=== PATIENT | female | born 1940 | race Caucasian/White ===

== ENCOUNTER 2016-06-17 13:44 | Outpatient (RCR) | payer MEDICARE, MEDICAID ==
[~2016-06-17 13:44] MED LIST: ACTOS15 MG PO; ASP81TEC PO; ATOR40TA PO; ATOR40TA70 PO; CANA100T PO; CEPH500C PO; CHOL500019 PO; CLOP75TA PO; CLOP75TA28 PO; CYAN100053 IJ; D50KC PO; DONE5TAB30 PO; ESOM20CA PO; FLUC100T6 PO; HYDR-1231 PO; HYDR-3454 PO; HYDR-3714 PO; INSU100C SQ; INSU100V SC; INSU100V6; INSU100V6 SC; INSU100V6 SQ; Insulin Human Lispro SC; LORA10TA7 PO; LOSA25TA15 PO; MESA1.2T2 PO; METO-352 PO; METR500T PO; MIRA50TA PO; MTR500T PO; NF-ESOM40C PO; PAMI30VI8 SQ; PIOG15TA22 PO; SSD50T TP; SULF-222 PO; SULF1TAB38 PO; SULFAMETHOXAZOLE; TBR.3OO OP; TOLT4CAP13 PO; TOLTA4 PO; TRIMETHOPRIM; TRM50T PO; VENL150C PO; VENL150C53 PO; VENL225T3 PO
--- OUTSIDE RECORDS SUMMARY | 2016-06-17 13:48 | XMS REPORT | Continuity of Care Document ---
Author Author [facility] Organization [facility] Address Unknown Phone Unavailable Care Team Providers Care Food Equipment Service Technician Name Role Phone JOSEY RIDER DO PCP Insurance Providers Payer Name Policy Number Subscriber Name Relationship [employer] [id number] Edel Herrera 18 Self / Same As Patient [facility] [id number] Edel Herrera 18 Self / Same As Patient Advance Directives Directive Response Recorded Date/Time Advance Directives No 09/06/14 9:22am Health Care Power of Motor Coach Supervisor No 09/06/14 9:22am Organ Donor No 09/06/14 9:22am Resuscitation Status Full Code 09/06/14 9:22am Problems Medical Problems Problem Onset Date Status Abscess Unknown Active Incision and drainage of abscess Unknown Active Hypoglycemia associated with diabetes Unknown Active Hypoglycemia associated with diabetes Unknown Active Hypertension Unknown Active Medications Medication Dose Route Sig Days/Qty Instructions Order Date Discontinued Date Status Insulin Glargine,Hum.rec.anlog 50 Units SQ BEDTIME 11/16/11 Discontinued Insulin Lispro 10 Units SQ WITH MEALS 11/16/11 08/01/14 Discontinued Atorvastatin Calcium 40 Mg PO DAILY 11/16/11 Active Clopidogrel Bisulfate 75 Mg PO DAILY 11/16/11 11/24/11 Discontinued Venlafaxine Hcl 150 Mg PO DAILY 11/16/11 08/01/14 Discontinued Losartan Potassium 50 Mg PO DAILY 11/16/11 05/29/13 Discontinued Tolterodine Tartrate 4 Mg PO DAILY 11/16/11 Active Tramadol HCl 50 Mg PO Q 4 HR PRN 40 Qty 11/23/05/29/13 Discontinued Esomeprazole Magnesium 40 Mg PO DAILY 30 Qty 05/29/13 08/01/14 Discontinued Pioglitazone HCl 15 Mg PO DAILY 05/29/13 Active Clopidogrel Bisulfate 75 Mg PO DAILY 05/29/13 Active Cholecalciferol (Vitamin D3) 50,000 Unit PO WEEKLY 05/29/13 Active Aspirin 81 Mg PO DAILY 05/29/13 Active Loratadine 10 Mg PO DAILY 05/29/13 08/01/14 Discontinued Trimethoprim/Sulfamethoxazole 1 Ea PO TWICE A DAY 20 Qty FOR INFECTION 08/01/14 Discontinued Metronidazole 1 Each PO TWICE A DAY 20 Qty 05/29/13 08/01/14 Discontinued Hydrocodone Bit/Acetaminophen 1 Tab PO EVERY 6 HOURS PRN PAIN 20 Qty 08/01/14 Discontinued Acetaminophen/Hydrocodone Bitart 1 Tab PO EVERY 6 HOURS PRN PAIN Active Cyanocobalamin (Vitamin B 12 Injecting) 1,000 Mcg IJ MONTHLY Active Esomeprazole Magnesium 20 Mg PO DAILY 08/01/14 Active [Insulin Human Lispro] 20 Unit SC WITH MEALS 90 Days 08/03/14 Active Insulin Glargine,Hum.rec.anlog 35 Unit SQ BEDTIME 90 Qty 08/03/14 Active Venlafaxine HCl (Effexor XR) 150 Mg PO 09/06/14 Active Ergocalciferol 50,000 Units PO 09/06/14 Active Loratadine 10 Mg PO 09/06/14 Active [Smz/Tmp 800/160MG] 09/06/14 Active Metronidazole 500 Mg PO TWICE A DAY 09/06/14 Active Tobramycin Sulfate 3.5 Gm OP 09/06/14 Active Trimethoprim/Sulfamethoxazole 1 Tab PO TWICE A DAY 09/06/14 Active Fluconazole 100 Mg PO DAILY 09/06/14 Active Silver Sulfadiazine 0 TP DIRECTED 50 Qty 09/06/14 Active Social History Social History Problem Response Recorded Date/Time Alcohol Use Denies Use 09/06/2014 9:22am Recreational Drug Use No 09/06/2014 9:22am Recent Foreign Travel No 09/06/2014 9:13am Recent Infectious Disease Exposure No 09/06/2014 9:13am Sexually Transmitted Disease No 09/06/2014 9:22am Smoking Status Current Everyday Smoker 09/06/2014 9:22am Do you dip or chew tobacco? No 09/06/2014 9:22am Query Response Start Date Stop Date Smoking Status Current Everyday Smoker Hospital Discharge Instructions No hospital discharge instructions. Plan of Care No plan of care. Functional Status No functional status results. Allergies, Adverse Reactions, Alerts Allergen Type Severity Reaction Status Last Updated No Known Drug Allergies Active 01/26/08 Immunizations Name Given Type Date of Pneumonia Vaccine 01/08/14 Historical Date of Influenza Vaccine 01/08/14 Historical Hepatitis A No Historical Hepatitis B No Historical Tetanus Booster (TDap) Unknown Historical Vital Signs Acute Vital Signs Vital Response Date/Time Temperature (Fahrenheit) 96.5 degrees F (97.6 - 99.5) Temperature (Calculated Celsius) 35.22344 degrees C (36.4 - 37.5) Temperature Source Temporal Pulse Rate (adult) 86 bpm (60 - 90) Respiratory Rate 20 bpm (12 - 24) O2 Sat by Pulse Oximetry 98 % (88 - 100) Blood Pressure 182/88 mm Hg Pain Pain Intensity 0 Height (Feet) 5 feet Height (Inches) 6.00 inches Height (Calculated Centimeters) 167.051494 cm Weight (Pounds) 142 pounds Weight (Ounces) 0.0 oz Weight (Calculated Grams) 92487.117 gm Weight (Calculated Kilograms) 64.614585 kilograms Calculated BMI 21.09 Results Laboratory Results Test Name Result Units Flags Reference Collection Date/Time Result Date/ Time Comments Glucometer 178 MG/DL H 70-110 09/06/2014 10:26am 09/06/2014 10:34am Procedures No known history of procedures. Encounters Encounter Location Date/Time Departed Emergency Room [facility] 09/06/14 9:10am Recent Diagnosis
== END 2016-09-15 | disposition home or self-care (01) ==
LOC: LAB 13:44
PROVIDERS: ATTEND Internal Medicine
DX: R19.7 Diarrhea, unspecified (principal)

== ENCOUNTER → 2016-07-20 | Outpatient (CLI) | payer MEDICARE, MEDICAID ==
--- OUTSIDE RECORDS SUMMARY | 2016-07-20 08:38 | XMS REPORT | Continuity of Care Document ---
Author Author [facility] Organization [facility] Address Unknown Phone Unavailable Care Team Providers Care Voucher Clerk Name Role Phone JOSEY RIDER DO PCP Insurance Providers Payer Name Policy Number Subscriber Name Relationship [employer] [id number] Edel Herrera 18 Self / Same As Patient [facility] [id number] Edel Herrera 17 Self / Same As Patient Advance Directives Directive Response Recorded Date/Time Advance Directives No 09/06/14 9:22am Health Care Power of Credit Reference Clerk No 09/06/14 9:22am Organ Donor No 09/06/14 [...] F (97.6 - 99.5) Temperature (Calculated Celsius) 35.80459 degrees C (36.4 - 37.5) Temperature Source Temporal Pulse Rate (adult) 86 bpm (60 - 90) Respiratory Rate 20 bpm (12 - 24) O2 Sat by Pulse Oximetry 98 % (88 - 100) Blood Pressure 182/88 mm Hg Pain Pain Intensity 0 Height (Feet) 5 feet Height (Inches) 6.00 inches Height (Calculated Centimeters) 167.175272 cm Weight (Pounds) 142 pounds Weight (Ounces) 0.0 oz Weight (Calculated Grams) 98701.117 gm Weight (Calculated Kilograms) 64.064935 kilograms Calculated BMI 21.09 Results Laboratory Results Test Name Result Units Flags Reference Collection Date/Time Result Date/ Time Comments Glucometer 178 MG/DL H 70-110 09/06/2014 10:26am 09/06/2014 10:34am Procedures No known history of procedures. Encounters Encounter Location Date/Time Departed Emergency Room [facility] 09/06/14 9:10am Recent Diagnosis
--- NOTE | 2016-07-20 18:22 | Diagnostic Imaging Report ---
Bilateral diagnostic mammogram. INDICATION: Follow-up asymmetry along the outer aspect of the right breast. The current study was also evaluated with a Computer Aided Detection (CAD) system. COMPARISON: 06/26/2015. FINDINGS: Asymmetry along the outer aspect of the right breast is again noted with no significant change from prior exams. A repeat CC projection demonstrates less prominent asymmetry. The background dense parenchyma could decrease mammographic sensitivity of detection; however, the lack of significant change from prior exams is in favor of summation artifact of parenchyma. Prominent vascular and other benign-appearing calcifications are seen bilaterally. IMPRESSION: Dense breasts with no adverse development. The asymmetry along the outer aspect of the right breast is without significant change and is likely related to summation effect of parenchyma. 12-month follow-up is recommended to ensure long-term stability. ACR BI-RADS Category 3: Probably benign findings. Result letter will be mailed to the patient. Note: At least 10% of breast cancer is not imaged by mammography. Dictated by: Dictated on workstation # [id number]
== END ==
LOC: RAD 08:33
PROVIDERS: ATTEND Internal Medicine
DX: R92.8 Other abnormal and inconclusive findings on diagnostic imaging of breast (principal)
CPT/HCPCS: 77066

== ENCOUNTER 2016-08-03 12:51 | Emergency (ER) | payer MEDICARE, MEDICAID ==
[~2016-08-03] VITALS: Ht 167.6 cm; Wt 74.8 kg
[2016-08-03] MEDS ORDERED: morphine INJ 10 MG/ML 1ML (SYR OR VIAL) IM STA (14:02)
[2016-08-03] MEDS ORDERED: TETANUS,DIPTH,PERTUSS P/F (BOOSTRIX) 0.5 ML VIAL IM STA (14:02)
--- NOTE | 2016-08-03 14:12 | ED Fall/Injury ---
General Chief Complaint: Trauma-Non Activation Stated Complaint: FALL/LEFT HAND INJURY Nursing Triage Note: SEE TRAUMA NOTE. Source: patient, family (daughter) Exam Limitations: no limitations History of Present Illness Time seen by provider: 14:59 Initial Comments 75-year-old female patient presents to the emergency Department with reports of losing her balance and falling. Complains of left hand pain and skin tear. States she thinks she may have hit her head, but not sure. Did break her dentures. Denies loss of consciousness, headache, neck pain, back pain, confusion. Location Injury Occurred: PT HOME Occurred: just prior to arrival Injuries/Pain Location: head (possibly hit her head), face, upper extremity ( left hand) Context: lost balance Loss of Consciousness: no loss of consciousness Modifying Factors: Improves With Immobilization, Worse With Movement Allergies and Home Medications Allergies Coded Allergies: No Known Drug Allergies (Verified , 01/26/08) Home Medications Aspirin 81 Mg Tabec, 81 MG PO DAILY, (Reported) Atorvastatin Calcium 40 Mg Tablet, 40 MG PO DAILY, (Reported) Canagliflozin 100 Mg Tablet, 100 MG PO DAILY, (Reported) Clopidogrel Bisulfate 75 Mg Tablet, 75 MG PO DAILY, (Reported) Cyanocobalamin 1,000 Mcg/Ml Vial, 1,000 MCG IJ MONTHLY, (Reported) AROUND THE OF EACH MONTH Donepezil HCl 5 Mg Tablet, 5 MG PO HS, (Reported) Ergocalciferol 50,000 Units Cap, 50,000 UNITS PO WEEKLY ON MONDAYS, (Reported) Esomeprazole Mag Trihydrate 40 Mg Capsule.dr, 40 MG PO DAILY, (Reported) Insulin Glargine,Hum.rec.anlog 100 Unit/1 Ml Vial, 23 UNIT SQ HS, (Reported) Insulin Lispro 100 Unit/1 Ml Cartridge, 0 SQ PC, (Reported) Mesalamine 1.2 Gm Tablet.dr, 1.2 GM PO, (Reported) Metoprolol Succinate 50 Mg Tab.er.24h, 50 MG PO DAILY, #30 Prescribed by: RD REYNOLDS on 12/03/15 [id number] Mirabegron 50 Mg Tab.er.24h, 50 MG PO, (Reported) Pioglitazone Hcl 15 Mg Tablet, 15 MG PO DAILY, (Reported) Venlafaxine Hcl 150 Mg Cap.sr.24h, 150 MG PO DAILY, (Reported) Constitutional: no symptoms reported Eyes: No Symptoms Reported Ears, Nose, Mouth, Throat: see HPI Respiratory: No cough, No short of breath Cardiovascular: No chest pain, No palpitations, No syncope Gastrointestinal: No abdominal pain, No nausea, No vomiting Genitourinary: no symptoms reported Musculoskeletal: see HPI, No back pain, joint pain, joint swelling (left hand) , No neck pain Skin: change in color (ecchymosis left hand) Psychiatric/Neurological: Denies Headache, Denies Numbness, Denies Paresthesia , Denies Seizure, Denies Tingling, Denies Weakness All Other Systems Reviewed Negative Unless Noted: Yes (Negative excepted noted.) Past Yzrwxzw-Svpbbn-Kubyap Hx Patient Social History Alcohol Use: Denies Use Recreational Drug Use: No Smoking Status: Current Everyday Smoker Type Used: Cigarettes Former Smoker/When Quit: Jan 17, 2015 2nd Hand Smoke Exposure: No Recent Foreign Travel: No Contact w/Someone Who Travel: No Recent Infectious Disease Expo: No Recent Hopitalizations: No Immunizations Up To Date Tetanus Booster (TDap): Unknown PED Vaccines UTD: No Date of Pneumonia Vaccine: Jan 08, 2014 Date of Influenza Vaccine: Feb 08, 2016 Surgeries HX Surgeries: Yes (STENTS X3, L ANKLE SURGERY, CAROTID ENDARTERECTOMY, RIGHT HIP REPLACEMENT) Surgeries: Appendectomy, Coronary Stent, Eye Surgery, 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, Joint Replacement, Orthopedic Respiratory Hx Respiratory Disorders: No Cardiovascular Hx Cardiac Disorders: Yes (STENTS 2002, ) Cardiac Disorders: Coronary Artery Disease, Heart Attack, High Cholesterol Neurological Hx Neurological Disorders: Yes (ONSET OF DEMENTIA) Neurological Disorders: TIA 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 System Hx 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 Disorders: No Sexually Transmitted Disease: No HIV/AIDS: No Female 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 Disorders: Denies Genitourinary Hx Genitourinary Disorders: Yes (INCONTINENCE) Gastrointestinal Hx Gastrointestinal Disorders: Yes Gastrointestinal Disorders: Colitis, Gastroesophageal Reflux, Chronic Diarrhea Musculoskeletal Hx Musculoskeletal Disorders: Yes Musculoskeletal Disorders: Osteoporosis, Arthritis Endocrine Hx Endocrine Disorders: Yes Endocrine Disorders: Diabetes, Insulin dep HEENT HX ENT Disorders: Yes (WEARS GLASSES, DENTURES (FULL)) Loss of Vision: Bilateral Hearing Impairment: Denies Cancer Hx Cancer: No Psychosocial Hx Psychiatric Problems: Yes Behavioral Health Disorders: Anxiety Integumentary HX Skin/Integumentary Disorder: No Skin/Integumentary Disorders: Recent Skin Changes Blood Transfusions Hx Blood Disorders: No Adverse Reaction to a Blood Tr: No Reviewed Nursing Assessment Reviewed/Agree w Nursing PMH: Yes Family Medical History Significant Family History: No Pertinent Family Hx Family Medial History: Alzheimer's disease (dad) Arthritis (mom) Asthma (sister) Completed stroke (mom) Diabetes mellitus (mom) Fibrocystic disease of breast (sister) Hypercholesterolemia (mom) Hypertension (mom) Myocardial infarction (mom) Neoplasm Parkinson's disease Severe allergy (sister) No Family History of: AIDS Abdominal aortic aneurysm Delbert's disease Alcoholism Aphasia Cancer of mouth Cardiovascular disease Cataracts Colon cancer Congenital disease Congenital heart disease Coronary thrombosis Cystic fibrosis Deafness or hearing loss Dementia Drug abuse Dysphasia Gastroenteritis Glaucoma Headache disorder Infertility Kidney disease Not obtainable due to adoption Osteoporosis (breast cancer) Prostate cancer Psychosocial problem Respiratory disorder Seizure disorder Thyroid disease Visual disorder Physical Exam Vital Signs Vital Sign - Last 12Hours 08/03/16 12:55 Temp 98.6 Pulse 89 Resp 16 B/P (MAP) 157/61 Pulse Ox 96 O2 Delivery Room Air Capillary Refill : Less Than 3 Seconds General Appearance: WD/WN, no apparent distress HEENT: PERRL/EOMI, normal ENT inspection, TMs normal, pharynx normal, other ( superficial laceration of the right lower internal lip. Abrasion right lower external lip.) Neck: non-tender, full range of motion, supple, normal inspection Cardiovascular: normal peripheral pulses, regular rate, rhythm, no edema, no murmur Respiratory: lungs clear, normal breath sounds, no respiratory distress Peripheral Pulses: 2+ Dorsalis Pedis (R), 2+ Left Dors-Pedis (L), 2+ Radial Pulses (R), 2+ Radial Pulses (L) Gastrointestinal: non tender, soft, No distended Back: normal inspection, no vertebral tenderness Extremities: no pedal edema, normal capillary refill, pelvis stable, other ( skin tear left volar hand overlying the second, third, and fourth MCP joints. 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 Swelling, ecchymosis, and tenderness left second, third, and fourth volar MCP joints.) Progress/Results/Core Measures Results/Orders My Orders Orders - KAYLIN PALMA Hand, Left, 3 Views (08/03/16 14:02) Dipht,Pertuss(Acell),Tet Adult (Boostrix (08/03/16 14:02) Ct Head/Maxillofacial Wo (08/03/16 14:02) Morphine Injection (Morphine Injection (08/03/16 14:02) Cockup Splint (08/03/16 15:43) Vital Signs/I&O Vital Sign - Last 12Hours 08/03/16 08/03/16 12:55 15:49 Temp 98.6 98.6 Pulse 89 85 Resp 16 16 B/P (MAP) 157/61 Pulse Ox 96 96 O2 Delivery Room Air Blood Pressure Mean: 93 Diagnostic Imaging Diagonstic Imaging: CT Plain Films/CT/US/NM/MRI: facial bones, head Comments FINDINGS: CT head: No intracranial hemorrhage. 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 There is a periventricular and deep white matter hypodensities compatible with chronic microvascular ischemic changes. No hydrocephalus. No extra-axial fluid collection is seen. The calvarium, the paranasal sinuses and orbits appear grossly unremarkable. CT maxillofacial: The zygomatic arches are intact. The orbital aldrich are intact. The paranasal sinuses and the mastoid air cells appear clear. There is nasoseptal deviation to the right side. The mandible is intact. 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 IMPRESSION: CT head: No acute process. CT maxillofacial: No fracture seen. Dictated on workstation # [id number] Reviewed: Reviewed by Me (radiology report reviewed by me. ) Diagonstic Imaging: Xray Plain Films/CT/US/NM/MRI: hand Comments FINDINGS: No acute fracture or malalignment is identified. There is dorsal hand swelling. No abnormal lytic or sclerotic focus is seen. There is no evidence of radiopaque foreign body within the hand. IMPRESSION: Dorsal hand swelling without acute osseous abnormality detected. Dictated on workstation # [id number] Reviewed: Reviewed by Me (radiology report reviewed by me) Departure Communication Progress Notes Diagnostic findings discussed with the patient and family. All wounds cleansed with chlorhexidine and sterile saline. Steri-Strips and Mastisol used to reapproximate skin tears. Wounds dressed with gauze and Kerlix. Left-handed placed in a Colles' splint to prevent patient hearing the Steri-Strips off. Patient instructed to follow-up with Dr. Lan in the next 1-2 days for recheck and to call for appointment time today. Return precautions were discussed with the patient as described in the discharge instructions of this report. Patient voices understanding and agrees with the treatment plan. Impression Impression: Primary Impression: Minor head injury without loss of consciousness Qualified Codes: S09.90XA - Unspecified injury of head, initial encounter Additional Impressions: Contusion of hand, left Abrasion hand Abrasion of lip, initial encounter Disposition: HOME, SELF-CARE Condition: Improved Departure-Patient Inst. Decision time for Depature: 15:16 Referrals: JOSEY LAN DO (PCP/Family) Primary Care Physician Patient Instructions: Contusion (DC), Minor Head Injury (DC), Skin Abrasions ( DC) Add. Discharge Instructions: All discharge instructions reviewed with patient and/or family. Voiced understanding. Continue usual home medications. Tylenol Extra Strength acek-bry-pyueiby as directed for pain if needed. Tomorrow morning remove the bandage, shower with antibacterial soap, pat dry, and cover with bandage. hand brace as instructed. Ice pack for 20 minute intervals as needed for pain. Follow-up with your family practitioner in the next 1-2 days for recheck, call today for appointment time. Return to the emergency department for worsened pain, redness, drainage, fever, vomiting, seizure, shortness of breath, neck pain, back pain, numbness, weakness , or any other concerns. KAYLIN PALMA Aug 03, 2016 14:12
--- NOTE | 2016-08-03 14:37 | Diagnostic Imaging Report ---
PROCEDURE: CT head and maxillofacial without contrast. TECHNIQUE: Multiple contiguous axial images were obtained through the head and facial bones without the use of intravenous contrast. INDICATION: Fall. FINDINGS: CT head: No intracranial hemorrhage. 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 There is a periventricular and deep white matter hypodensities compatible with chronic microvascular ischemic changes. No hydrocephalus. No extra-axial fluid collection is seen. The calvarium, the paranasal sinuses and orbits appear grossly unremarkable. CT maxillofacial: The zygomatic arches are intact. The orbital aldrich are intact. The paranasal sinuses and the mastoid air cells appear clear. There is nasoseptal deviation to the right side. The mandible is intact. 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 IMPRESSION: CT head: No acute process. CT maxillofacial: No fracture seen. Dictated by: Dictated on workstation # [id number]
--- NOTE | 2016-08-03 15:05 | Diagnostic Imaging Report ---
INDICATION: Fall with left hand injury. TECHNIQUE: AP, oblique, and lateral views of the left hand were obtained. FINDINGS: No acute fracture or malalignment is identified. There is dorsal hand swelling. No abnormal lytic or sclerotic focus is seen. There is no evidence of radiopaque foreign body within the hand. IMPRESSION: Dorsal hand swelling without acute osseous abnormality detected. Dictated by: Dictated on workstation # [id number]
[2016-08-03 15:49] VITALS: BP 155/64
--- OUTSIDE RECORDS SUMMARY | 2016-08-18 18:14 | XMS REPORT | Continuity of Care Document ---
Author Author [facility] Organization [facility] Address Unknown Phone Unavailable Allergies Active Description Code Type Severity Reaction Onset Reported/Identified Relationship to Patient Clinical Status Yes No Known Drug Allergies [id number] Drug Allergy Unknown N/ A 01/26/2008 Medications Problems Date Dx Coded Attending Type Code Diagnosis Diagnosed By 11/18/2011 Ot 250.00 DIAB JEFFY WO COMPL, TYPE II OR UNSPEC TY 11/18/2011 Ot 272.4 HYPERLIPIDEMIA NEC/NOS 11/18/2011 Ot 401.9 HYPERTENSION NOS 11/18/2011 Ot 412 OLD MYOCARDIAL INFARCT 11/18/2011 Ot 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 [place] CORON 11/18/2011 Ot 433.10 CAROTID ARTERY OCCLUSION W O CEREBRAL IN 11/18/2011 Ot 530.81 ESOPHAGEAL REFLUX 11/18/2011 Ot 781.3 LACK OF COORDINATION 11/18/2011 Ot 793.11 SOLITARY PULMONARY NODULE 11/18/2011 Ot 799.02 HYPOXEMIA 11/18/2011 Ot V58.67 LONG-TERM (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 11/24/2011 Ot 250.00 DIAB JEFFY WO COMPL, TYPE II OR UNSPEC TY 11/24/2011 Ot 305.1 TOBACCO USE DISORDER 11/24/2011 Ot 401.9 HYPERTENSION NOS 11/24/2011 Ot 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 [place] CORON 11/24/2011 Ot 433.10 CAROTID ARTERY OCCLUSION W O CEREBRAL IN 11/24/2011 Ot V45.82 PERCUTANEOUS TRANSLUM CORON ANGIOPLASTY 05/29/2013 LAURIE MARCUM, RD Newman Ot 682.9 CELLULITIS NOS 08/03/2014 JOSEY RIDER DO Ot 250.02 DIAB JEFFY WO COMPL, TYPE II OR UNSPEC TY 08/03/2014 JOSEY RIDER DO Ot 263.9 PROTEIN-ANITA MALNUTR NOS 08/03/2014 JOSEY RIDER DO Ot 266.2 B-COMPLEX DEFIC NEC 08/03/2014 JOSEY RIDER DO Ot 268.9 VITAMIN D DEFICIENCY NOS 08/03/2014 JOSEY RIDER DO Ot 276.1 HYPOSMOLALITY 08/03/2014 JOSEY RIDER DO Ot 300.00 ANXIETY STATE NOS 08/03/2014 JOSEY RIDER DO Ot 305.1 TOBACCO USE DISORDER 08/03/2014 JOSEY RIDER DO Ot 401.9 HYPERTENSION NOS 08/03/2014 JOSEY RIDER DO Ot 412 OLD MYOCARDIAL INFARCT 08/03/2014 JOSEY RIDER DO Ot 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 [place] CORON 08/03/2014 JOSEY RIDER DO Ot 443.9 PERIPH VASCULAR DIS NOS 08/03/2014 JOSEY RIDER DO Ot 530.81 ESOPHAGEAL REFLUX 08/03/2014 JOSEY RIDER DO Ot 596.51 HYPERTONICITY OF BLADDER 08/03/2014 JOSEY RIDER DO Ot V15.81 HX OF PAST NONCOMPLIANCE 08/06/2014 Ot V76.12 08/06/2014 Ot V76.12 08/06/2014 Ot 305.1 08/06/2014 Ot 492.8 08/06/2014 Ot 783.21 08/06/2014 Ot 786.7 08/06/2014 Ot 414.00 08/06/2014 Ot 496 08/06/2014 Ot 793.19 08/06/2014 Ot 250.00 08/06/2014 Ot 272.4 08/06/2014 Ot 305.1 08/06/2014 Ot 401.9 08/06/2014 Ot 414.01 08/06/2014 Ot 433.10 08/06/2014 Ot V13.02 08/06/2014 Ot V45.82 08/06/2014 Ot V58.63 08/06/2014 Ot V58.67 08/06/2014 Ot V58.69 08/06/2014 Ot 433.10 08/06/2014 Ot V72.63 08/06/2014 Ot V74.8 08/06/2014 Ot V67.09 08/06/2014 Ot 793.82 08/06/2014 Ot V76.12 08/06/2014 NEY ASTUDILLO FARM MACHINE OPERATOR Ot 719.07 08/06/2014 NEY ASTUDILLO FARM MACHINE OPERATOR Ot 719.47 08/06/2014 JOSEY RIDER DO Ot V76.12 08/06/2014 Ot V76.12 08/09/2014 Ot V76.12 08/24/2014 Ot V76.12 09/06/2014 RD SULLIVAN MD Ot 250.80 DIAB W OTH SPEC MANIFEST, TYPE II OR UNS 09/06/2014 RD SULLIVAN MD Ot 401.9 HYPERTENSION NOS 09/06/2014 RD SULLIVAN MD Ot V58.67 LONG-TERM (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 09/06/2014 RD SULLIVAN MD Ot V58.69 OTH MED,LT,CURRENT USE 09/23/2014 ROBERT JAMISON APRN Ot 250.80 DIAB W OTH SPEC MANIFEST, TYPE II OR UNS 09/23/2014 ROBERT JAMISON APRN Ot 251.2 HYPOGLYCEMIA NOS 09/25/2014 JOSEY RIDER DO Ot 250.80 DIAB W OTH SPEC MANIFEST, TYPE II OR UNS 09/25/2014 JOSEY RIDER DO Ot 305.1 TOBACCO USE DISORDER 09/25/2014 JOSEY RIDER DO Ot 311 DEPRESSIVE DISORDER NEC 09/25/2014 JOSEY RIDER DO Ot 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 [place] CORON 09/25/2014 JOSEY RIDER DO Ot 530.81 ESOPHAGEAL REFLUX 09/25/2014 JOSEY RIDER DO Ot V45.82 PERCUTANEOUS TRANSLUM CORON ANGIOPLASTY 09/25/2014 JOSEY RIDER DO Ot V58.67 LONG-TERM (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 01/31/2015 KYMBERLY DPM, DAVID Q Ot 250.00 DIAB JEFFY WO COMPL, TYPE II OR UNSPEC TY 01/31/2015 KYMBERLY DPM, DAVID Q Ot 414.00 CORON ATHEROSCLER NOS TYPE VESSEL, NATIV 01/31/2015 KYMBERLY DPM, DAVID Q Ot 727.1 BUNION 01/31/2015 KYMBERLY DPM, DAVID Q Ot V58.63 LONG-TERM(CURRENT)USE OF ANTIPLATELET/AN 01/31/2015 KYMBERLY DPM, DAVID Q Ot V58.67 LONG-TERM (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 01/31/2015 KYMBERLY DPM, DAVID Q Ot V58.69 OTH MED,LT,CURRENT USE 01/31/2015 KYMBERLY DPM, DAVID Q Ot V64.3 NO PROC FOR REASONS NEC 02/14/2015 ABRAN MARCUM FACC, ALI FACP CCDS Ot 272.4 02/14/2015 ABRAN MARCUM FACC, ALI FACP CCDS Ot 401.9 02/14/2015 ABRAN MARCUM FACC, ALI FACP CCDS Ot 414.9 02/14/2015 ABRAN MARCUM FACC, ALI FACP CCDS Ot 433.10 02/15/2015 KYMBERLY DPM, DAVID Q Ot M20.5X2 OTHER DEFORMITIES OF TOE(S) (ACQUIRED), 02/15/2015 KYMBERLY DPM, DAVID Q Ot M85.872 OTH DISRD OF BONE DENSITY AND STRUCTURE, 02/15/2015 KYMBERLY DPM, DAVID Q Ot Z79.899 OTHER [facility] (CURRENT) DRUG THERAPY 02/20/2015 ABRAN MARCUM FACC, ALI FACP CCDS Ot 272.4 02/20/2015 ABRAN MARCUM FACC, ALI FACP CCDS Ot 401.9 02/20/2015 ABRAN MARCUM FACC, ALI FACP CCDS Ot 414.9 02/20/2015 ABRAN MARCUM FACC, ALI FACP CCDS Ot 433.10 04/01/2015 KYMBERLY DPM, DAVID Q Ot L97.529 04/09/2015 ABRAN MARCUM FACC, ALI FACP CCDS Ot 272.4 04/09/2015 ABRAN MARCUM FACC, ALI FACP CCDS Ot 401.9 04/09/2015 ABRAN MARCUM FACC, ALI FACP CCDS Ot 414.9 04/09/2015 ABRAN MARCUM FACC, ALI FACP CCDS Ot 433.10 04/15/2015 ABRAN MARCUM FACC, ALI FACP CCDS Ot 272.4 04/15/2015 ABRAN MARCUM FACC, ALI FACP CCDS Ot 401.9 04/15/2015 ABRAN MARCUM FACC, ALI FACP CCDS Ot 414.9 04/15/2015 ABRAN MARCUM FACC, ALI FACP CCDS Ot 433.10 04/17/2015 KYMBERLY DPM, DAVID Q Ot L97.529 04/24/2015 KYMBERLY DPM, DAVID Q Ot L97.529 07/25/2015 JOSEY RIDER DO Ot Z12.31 08/06/2015 JOSEY RIDER DO Ot R92.8 08/14/2015 JOSEY RIDER DO Ot Z12.31 08/21/2015 RIDERJOSEY DODSON DO Ot Z12.31 08/28/2015 ADRY DOJOSEY Ot R92.8 OTH ABN AND INCONCLUSIVE FINDINGS ON DX 09/11/2015 RIDER DO, JOSEY Parikh Ot R92.8 OTH ABN AND INCONCLUSIVE FINDINGS ON DX 12/03/2015 RD SULLIVAN MD Ot F17.210 NICOTINE DEPENDENCE, CIGARETTES, UNCOMPL 12/03/2015 RD SULLIVAN MD Ot I10 ESSENTIAL (PRIMARY) HYPERTENSION 12/03/2015 RD SULLIVAN MD Ot I25.10 ATHSCL HEART DISEASE OF [place] CORONARY 12/03/2015 RD SULLIVAN MD Ot R07.9 CHEST PAIN, UNSPECIFIED 12/03/2015 DR SULLIVAN MD Ot Z95.5 PRESENCE OF CORONARY ANGIOPLASTY IMPLANT 12/04/2015 RD SULLIVAN MD Ot F17.210 NICOTINE DEPENDENCE, CIGARETTES, UNCOMPL 12/04/2015 RD SULLIVAN MD Ot I10 ESSENTIAL (PRIMARY) HYPERTENSION 12/04/2015 RD SULLIVAN MD T Ot I25.10 ATHSCL HEART DISEASE OF [place] CORONARY 12/04/2015 RD SULLIVAN MD Ot R07.9 CHEST PAIN, UNSPECIFIED 12/04/2015 RD SULLIVAN MD Ot Z95.5 PRESENCE OF CORONARY ANGIOPLASTY IMPLANT 12/05/2015 RD SULLIVAN MD Ot F17.210 NICOTINE DEPENDENCE, CIGARETTES, UNCOMPL 12/05/2015 RD SULLIVAN MD T Ot I10 ESSENTIAL (PRIMARY) HYPERTENSION 12/05/2015 RD SULLIVAN MD T Ot I25.10 ATHSCL HEART DISEASE OF [place] CORONARY 12/05/2015 RD SULLIVAN MD Ot R07.9 CHEST PAIN, UNSPECIFIED 12/05/2015 RD SULLIVAN MD T Ot Z95.5 PRESENCE OF CORONARY ANGIOPLASTY IMPLANT 12/09/2015 RD SULLIVAN MD T Ot F17.210 NICOTINE DEPENDENCE, CIGARETTES, UNCOMPL 12/09/2015 RD SULLIVAN MD T Ot I10 ESSENTIAL (PRIMARY) HYPERTENSION 12/09/2015 RD SULLIVAN MD Ot I25.10 ATHSCL HEART DISEASE OF [place] CORONARY 12/09/2015 LAURIE MARCUM, RD Newman Ot R07.9 CHEST PAIN, UNSPECIFIED 12/09/2015 LAURIE MARCUM, RD Newman Ot Z95.5 PRESENCE OF CORONARY ANGIOPLASTY IMPLANT 12/26/2015 NICKANAYELI HURTADO COMPUTER ENGINEER Ot Z53.9 PROCEDURE AND TREATMENT NOT CARRIED OUT , 12/26/2015 ANAYELI DICKENS COMPUTER ENGINEER Ot E78.4 OTHER HYPERLIPIDEMIA 12/26/2015 NICKANAYELI HURTADO COMPUTER ENGINEER Ot I65.23 OCCLUSION AND STENOSIS OF BILATERAL NG 01/17/2016 NICKANAYELI HURTADO COMPUTER ENGINEER Ot E78.4 OTHER HYPERLIPIDEMIA 01/17/2016 ANAYELI DICKENS COMPUTER ENGINEER Ot I65.23 OCCLUSION AND STENOSIS OF BILATERAL NG 01/24/2016 BAIANAYELI HURTADO COMPUTER ENGINEER Ot I65.23 OCCLUSION AND STENOSIS OF BILATERAL NG 01/27/2016 JOSEY RIDER DO Ot R92.8 OTH ABN AND INCONCLUSIVE FINDINGS ON DX 01/27/2016 JOSEY RIDER DO Ot R92.8 OTH ABN AND INCONCLUSIVE FINDINGS ON DX 01/30/2016 NICKANAYELI HURTADO COMPUTER ENGINEER Ot E78.4 OTHER HYPERLIPIDEMIA 01/30/2016 ANAYELI DICKENS COMPUTER ENGINEER Ot I65.23 OCCLUSION AND STENOSIS OF BILATERAL NG 02/04/2016 BAIANAYELI HURTADO COMPUTER ENGINEER Ot I65.23 OCCLUSION AND STENOSIS OF BILATERAL NG 02/05/2016 JOSEY RIDER DO Ot R92.8 OTH ABN AND INCONCLUSIVE FINDINGS ON DX 02/14/2016 Ot V76.12 OTH SCREEN MAMMO-MALIGN NEOPLASM OF [place] 02/14/2016 Ot 305.1 TOBACCO USE DISORDER 02/14/2016 Ot 492.8 EMPHYSEMA NEC 02/14/2016 Ot 783.21 LOSS OF WEIGHT 02/14/2016 Ot 786.7 ABNORMAL CHEST SOUNDS 02/14/2016 Ot 414.00 CORON ATHEROSCLER NOS TYPE VESSEL, NATIV 02/14/2016 Ot 496 CHR AIRWAY OBSTRUCT NEC 02/14/2016 Ot 793.19 OTHER NONSPECIFIC ABNORMAL FINDING OF PRISCILLA 02/14/2016 Ot 250.00 DIAB JEFFY WO COMPL, TYPE II OR UNSPEC TY 02/14/2016 Ot 272.4 HYPERLIPIDEMIA NEC/NOS 02/14/2016 Ot 305.1 TOBACCO USE DISORDER 02/14/2016 Ot 401.9 HYPERTENSION NOS 02/14/2016 Ot 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 [place] CORON 02/14/2016 Ot 433.10 CAROTID ARTERY OCCLUSION W O CEREBRAL IN 02/14/2016 Ot V13.02 PERSONAL HISTORY, URINARY (TRACT) INFECT 02/14/2016 Ot V45.82 PERCUTANEOUS TRANSLUM CORON ANGIOPLASTY 02/14/2016 Ot V58.63 LONG-TERM(CURRENT)USE OF ANTIPLATELET/AN 02/14/2016 Ot V58.67 LONG-TERM (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 02/14/2016 Ot V58.69 OTH MED,LT,CURRENT USE 02/14/2016 Ot 433.10 CAROTID ARTERY OCCLUSION W O CEREBRAL IN 02/14/2016 Ot V72.63 PRE-PROCEDURAL LABORATORY EXAMINATION 02/14/2016 Ot V74.8 SCREEN-BACTERIAL DIS NEC 02/14/2016 Ot V67.09 SURGERY FOLLOW-UP, OTHER SURGERY 02/14/2016 Ot 793.82 INCONCLUSIVE MAMMOGRAM 02/14/2016 Ot V76.12 OTH SCREEN MAMMO-MALIGN NEOPLASM OF [place] 02/14/2016 RIDINGS, NEY C FARM MACHINE OPERATOR Ot 719.07 JOINT EFFUSION-ANKLE 02/14/2016 RIDINGS, NEY C FARM MACHINE OPERATOR Ot 719.47 JOINT PAIN-ANKLE 02/14/2016 JOSEY RIDER DO Ot V76.12 OTH SCREEN MAMMO-MALIGN NEOPLASM OF [place] 02/14/2016 Ot V76.12 OTH SCREEN MAMMO-MALIGN NEOPLASM OF [place] 02/14/2016 KYMBERLY DPM, DAVID Q Ot 727.1 BUNION 02/14/2016 KYMBERLY DPM, DAVID Q Ot V72.83 EXAM PRE-OPERATIVE NEC 02/14/2016 ABRAN MARCUM FACC, JOAQUÍN LUI CCDS Ot 272.4 HYPERLIPIDEMIA NEC/NOS 02/14/2016 ABRAN MARCUM FACC, JOAQUÍN LUI CCDS Ot 401.9 HYPERTENSION NOS 02/14/2016 ABRAN MARCUM FACC, JOAQUÍN LUI CCDS Ot 414.9 CHR ISCHEMIC HRT DIS NOS 02/14/2016 ABRAN MARCMU FACC, JOAQUÍN LUI CCDS Ot 433.10 CAROTID ARTERY OCCLUSION W O CEREBRAL IN 02/14/2016 ABRAN MARCUM FACC, JOAQUÍN LUI CCDS Ot 272.4 HYPERLIPIDEMIA NEC/NOS 02/14/2016 ABRAN MARCUM FACC, JOAQUÍN HINOJOSAP CCDS Ot 401.9 HYPERTENSION NOS 02/14/2016 ABRAN MARCUM FACC, JOAQUÍN FACP CCDS Ot 414.9 CHR ISCHEMIC HRT DIS NOS 02/14/2016 ABRAN MARCUM FACC, JOAQUÍN FACP CCDS Ot 433.10 CAROTID ARTERY OCCLUSION W O CEREBRAL IN 02/14/2016 KYMBERLY DPM, DAVID Q Ot M20.5X2 OTHER DEFORMITIES OF TOE(S) (ACQUIRED), 02/14/2016 KYMBERLY DPM, DAVID Q Ot Z01.818 ENCOUNTER FOR OTHER PREPROCEDURAL EXAMIN 02/14/2016 KYMBERLY DPM, DAVID Q Ot L97.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 02/14/2016 JOSEY RIDER DO Ot Z12.31 ENCNTR SCREEN MAMMOGRAM FOR MALIGNANT NE 02/14/2016 JOSEY RIDER DO Ot R92.8 OTH ABN AND INCONCLUSIVE FINDINGS ON DX 02/14/2016 BAIANAYELI HURTADO L COMPUTER ENGINEER Ot I65.23 OCCLUSION AND STENOSIS OF BILATERAL NG 02/14/2016 ANNE DICKENSHER L COMPUTER ENGINEER Ot Z53.9 PROCEDURE AND TREATMENT NOT CARRIED OUT , 02/14/2016 BAIMA ANAYLEI L COMPUTER ENGINEER Ot E78.4 OTHER HYPERLIPIDEMIA 02/14/2016 BAIMA, ANAYELI L COMPUTER ENGINEER Ot I65.23 OCCLUSION AND STENOSIS OF BILATERAL NG 02/14/2016 JOSEY RIDER DO Ot R92.8 OTH ABN AND INCONCLUSIVE FINDINGS ON DX 02/18/2016 BAIMA ANAYELI L COMPUTER ENGINEER Ot E78.4 OTHER HYPERLIPIDEMIA 02/18/2016 BAIMA ANAYELI L COMPUTER ENGINEER Ot I25.10 ATHSCL HEART DISEASE OF [place] CORONARY 03/06/2016 BAIMA ANAYELI L COMPUTER ENGINEER Ot E78.4 OTHER HYPERLIPIDEMIA 03/06/2016 BAIMA ANAYELI L COMPUTER ENGINEER Ot I25.10 ATHSCL HEART DISEASE OF [place] CORONARY 03/18/2016 BAIMAANAYELI L COMPUTER ENGINEER Ot E78.4 OTHER HYPERLIPIDEMIA 03/18/2016 BAIANNE HURTADOHER L COMPUTER ENGINEER Ot I25.10 ATHSCL HEART DISEASE OF [place] CORONARY 04/10/2016 JOSEY RIDER DO Ot R15.9 FULL INCONTINENCE OF FECES 04/10/2016 JOSEY RIDER DO Ot R32 UNSPECIFIED URINARY INCONTINENCE 04/10/2016 ADRY BARRERA JOSEY Parikh Ot R15.9 FULL INCONTINENCE OF FECES 04/10/2016 JOSEY RIDER DO Ot R32 UNSPECIFIED URINARY INCONTINENCE 04/22/2016 JOSEY RIDER DO Ot R92.8 OTH ABN AND INCONCLUSIVE FINDINGS ON DX 05/07/2016 ADRY BARRERA JOSEY Parikh Ot R15.9 FULL INCONTINENCE OF FECES 05/07/2016 RIDER DO JOSEY Parikh Ot R32 UNSPECIFIED URINARY INCONTINENCE 05/07/2016 ADRY BARRERA JOSEY Parikh Ot R15.9 FULL INCONTINENCE OF FECES 05/07/2016 ADRY BARRERA JOSEY Parikh Ot R32 UNSPECIFIED URINARY INCONTINENCE 06/18/2016 ADRY BARRERA JOSEY Parikh Ot R19.7 DIARRHEA, UNSPECIFIED 07/21/2016 ADRY BARRERA JOSEY Parikh Ot R92.2 INCONCLUSIVE MAMMOGRAM 07/21/2016 RIDER DO JOSEY Parikh Ot R92.2 INCONCLUSIVE MAMMOGRAM 07/21/2016 ADRY BARRERA JOSEY Parikh Ot R92.2 INCONCLUSIVE MAMMOGRAM 07/21/2016 ADRY BARRERA JOSEY Parikh Ot R92.8 OTH ABN AND INCONCLUSIVE FINDINGS ON DX 08/11/2016 ADRY BARRERA JOSEY Parikh Ot R92.8 OTH ABN AND INCONCLUSIVE FINDINGS ON DX Procedures Code Description Performed By Performed On 00.40 11/23/2011 38.12 11/23/2011 Results Test Result Range Comprehensive metabolic panel - 02/14/16 08:23 Serum or plasma sodium measurement (moles/volume) 139 mmol/ L 135-145 Serum or plasma potassium measurement (moles/volume) 4.1 mmol/L 3.6-5.0 Serum or plasma chloride measurement (moles/volume) 107 mmol /L 98-107 Carbon dioxide 20 mmol/L 21-32 Serum or plasma anion gap determination (moles/volume) 12 mmol/L 5-14 Serum or plasma urea nitrogen measurement (mass/volume) 9 mg /dL 7-18 Serum or plasma creatinine measurement (mass/volume) 0.65 mg /dL 0.60-1.30 Serum or plasma urea nitrogen/creatinine mass ratio 14 NRG Serum or plasma creatinine measurement with calculation of estimated glomerular filtration rate > NRG Serum or plasma glucose measurement (mass/volume) 88 mg/dL 70-105 Serum or plasma calcium measurement (mass/volume) 8.9 mg/dL 8.5-10.1 Serum or plasma total bilirubin measurement (mass/volume) 0.5 mg/dL 0.1-1.0 Serum or plasma alkaline phosphatase measurement (enzymatic activity/volume) 71 U/L 40-136 Serum or plasma aspartate aminotransferase measurement (enzymatic activity/ volume) 15 U/L 5-34 Serum or plasma alanine aminotransferase measurement (enzymatic activity/volume ) 14 U/L 0-55 Serum or plasma protein measurement (mass/volume) 6.6 g/dL 6.4-8.2 Serum or plasma albumin measurement (mass/volume) 4.0 g/dL 3.2-4.5 Lipid 1996 panel - 02/14/16 08:23 Serum or plasma triglyceride measurement (mass/volume) 66 mg /dL <150 Serum or plasma cholesterol measurement (mass/volume) 144 mg /dL < 200 Serum or plasma cholesterol in HDL measurement (mass/volume) 47 mg/dL 40-60 Cholesterol in LDL [mass/volume] in serum or plasma by direct assay 80 mg/dL 1-129 Serum or plasma cholesterol in VLDL measurement (mass/volume) 13 mg/dL 5-40 Encounters ACCT No. Visit Date/Time Discharge Status Pt. Type Provider Facility Loc./Unit Complaint [id number] 08/03/2016 12:54:00 2016 15:49:00 DIS Emergency KAYLIN DONIS [facility] ER FALL/LEFT HAND INJURY [id number] 12/03/2015 09:59:00 2015 14:45:[address] SULLIVAN MD [facility] ER CHEST PAIN/FATIGUE UPPER LEG PAIN [id number] 03/28/2015 06:02:00 2014 23:59:59 CLS Outpatient DAVID TRAYLOR DPM [facility] CARD CHRONIC ULCER L 5TH METATARSAL [id number] 02/15/2015 11:20:00 2014 15:45:00 DIS Outpatient DAVID TRAYLOR DPM [facility] SDC BUNION [id number] 02/11/2015 07:53:00 10/05/ 2015 23:59:59 CLS Outpatient KYMBERLY DPM, DAVID Q [facility] PREOP BUNION [id number] 01/31/2015 06:00:00 2014 07:37:00 DIS Outpatient KYMBERLY DPM, DAVID Q [facility] SDC BUNION LEFT FOOT [id number] 01/29/2015 07:28:00 2014 23:59:59 CLS Outpatient ABRAN MARCUM FACLai, JOAQUÍN LUI CCDS [facility] CARD CAD [id number] 01/25/2015 08:23:00 2014 23:59:59 CLS Outpatient ABRAN MARCUM FACC, JOAQUÍN LUI CCDS [facility] CARD CAD [id number] 01/17/2015 12:02:00 2014 23:59:59 CLS Outpatient KYMBERLY DPM, DAVID Q [facility] PREOP BUNION LEFT FOOT [id number] 09/24/2014 21:57:00 2014 12:02:00 DIS Inpatient JOSEY RIDER DO [facility] 4TH HYPOGLYCEMIA [id number] 09/23/2014 11:46:00 2014 14:06:00 DIS Emergency ROBERT JAMISON APRN [facility] ER LOW BLOOD SUGAR [id number] 09/06/2014 09:10:00 2014 10:45:[address] SULLIVAN MD [facility] ER HYPOGLYCEMIA [id number] 08/01/2014 15:58:00 2014 10:15:00 DIS Inpatient JOSEY RIDER DO [facility] 4TH UNCONTROLLED DIABETES [id number] 06/27/2013 09:15:00 2013 23:59:59 CLS Outpatient JOSEY RIDER DO [facility] RAD SCREENING [id number] 05/29/2013 07:57:00 2013 10:45:[address] SULLIVAN MD [facility] ER POSS VAG ABSCESS [id number] 12/20/2012 11:53:00 2012 23:59:59 CLS Outpatient RIDINGSNEY APRN [facility] RAD PAIN AND SWELLING IN RT ANKLE [id number] 07/20/2016 08:33:00 ACT Outpatient JOSEY RIDER DO [facility] RAD F/U RIGHT BREAST DENSITY [id number] 06/17/2016 13:44:00 ACT Outpatient JOSEY RIDER DO [facility] LAB R19.7 [id number] 04/09/2016 07:10:00 ACT Outpatient JOSEY RIDER DO [facility] RAD URINARY/FECAL INCONTINENCE [id number] 02/14/2016 08:03:00 ACT Outpatient BAIANAYELI HURTADO COMPUTER ENGINEER [facility] LAB HLD,CAD [id number] 01/24/2016 08:38:00 ACT Outpatient JOSEY RIDER DO [facility] RAD F/U [id number] 12/30/2015 11:13:00 ACT Outpatient BAIANAYELI HURTADOP [facility] RAD CAROTID ARTERY STENOSIS [id number] 12/26/2015 07:55:00 ACT Outpatient BAIANAYELI HURTADO COMPUTER ENGINEER [facility] LAB CAROTID ARTERY STENOSIS,HLD [id number] 12/25/2015 08:37:00 ACT Outpatient ANAYELI DICKENS COMPUTER ENGINEER [facility] LAB CAROTID ARTERY STENOSIS, HDL [id number] 08/05/2015 07:42:00 ACT Outpatient JOSEY RIDER DO [facility] RAD ABNORMAL MAMMO [id number] 07/25/2015 08:25:00 ACT Outpatient JOSEY RIDRE DO [facility] RAD SCREENING [id number] 08/06/2014 16:39:00 Document Registration [id number] 08/06/2014 16:39:00 Document Registration [id number] 08/06/2014 16:39:00 Document Registration [id number] 08/06/2014 16:39:00 Document Registration [id number] 08/06/2014 16:39:00 Document Registration [id number] 08/06/2014 16:39:00 Document Registration [id number] 08/06/2014 16:39:00 Document Registration [id number] 07/17/2014 09:06:00 Document Registration [id number] 12/03/2011 09:20:00 Document Registration [id number] 11/16/2011 09:00:00 Document Registration [id number] 06/03/2011 09:07:00 Document Registration [id number] 10/02/2010 06:37:00 Document Registration [id number] 09/18/2010 10:27:00 Document Registration [id number] 06/24/2009 08:17:00 Document Registration
== END 2016-08-03 15:49 | disposition home or self-care (01) ==
LOC: EDUNIT# 12:51 → ER 12:54
DX: S01.511A Laceration without foreign body of lip, initial encounter (principal); S60.512A Abrasion of left hand, initial encounter; Z23 Encounter for immunization; E11.9 Type 2 diabetes mellitus without complications; I25.10 Atherosclerotic heart disease of native coronary artery without angina pectoris; F17.210 Nicotine dependence, cigarettes, uncomplicated; Z79.82 Long term (current) use of aspirin; Z79.4 Long term (current) use of insulin; Z79.899 Other long term (current) drug therapy; Z95.5 Presence of coronary angioplasty implant and graft; Z96.641 Presence of right artificial hip joint; W19.XXXA Unspecified fall, initial encounter; Y99.8 Other external cause status
CPT/HCPCS: 70450; 70486; 73130; 90471; 90715; 96372; 99282

== ENCOUNTER → 2016-08-21 | Outpatient (CLI) | payer MEDICARE, MEDICAID ==
[2016-08-21 09:11] LABS: ALANINE AMINOTRANSFERASE 10 U/L (0-55); ALBUMIN 4.1 G/DL (3.2-4.5); ANION GAP 10 MMOL/L (5-14); ASPARTATE AMINO TRANSFERASE 11 U/L (5-34); BILIRUBIN,TOTAL 0.5 MG/DL (0.1-1.0); BLOOD UREA NITROGEN 11 MG/DL (7-18); BUN/CREATININE RATIO 16; CARBON DIOXIDE 24 MMOL/L (21-32); CHLORIDE 109 MMOL/L (98-107); CHOLESTEROL 131 MG/DL (< 200); DIRECT LDL 69 MG/DL (1-129); GFR ESTIMATED > 60; GLUCOSE 101 MG/DL (70-105); POTASSIUM 4.2 MMOL/L (3.6-5.0); SODIUM 143 MMOL/L (135-145); TRIGLYCERIDES 58 MG/DL (<150); VLDL CHOLESTEROL 12 MG/DL (5-40)
== END ==
LOC: LAB 08:28
PROVIDERS: ATTEND Nurse Practitioner Family
DX: E78.4 Other hyperlipidemia (principal); I25.10 Atherosclerotic heart disease of native coronary artery without angina pectoris; I10 Essential (primary) hypertension
CPT/HCPCS: 36415; 80053; 80061

== ENCOUNTER 2017-01-14 13:29 | Emergency (ER) | payer MEDICARE, MEDICAID ==
[~2017-01-14] VITALS: Ht 170.2 cm; Wt 77.1 kg
--- NOTE | 2017-01-14 15:52 | Diagnostic Imaging Report ---
INDICATION: Fall resulting in continued back pain. COMPARISON: Correlation is limited to a lumbar MRI performed on 04/09/2016. FINDINGS: Trace retrolisthesis of 3-4 mm of L4 on L5 is unchanged. There is some straightening of the lumbar lordosis, unchanged, and L1 mild superior endplate concavity at its mid to anterior thirds resulting in about 10-15% stature loss which has developed from the prior exam; however, its precise acuity is indeterminate. If this correlates with the level of pain, consider a repeat MRI to assess for marrow edema, particularly if treatment such as kyphoplasty would be considered for painful acute fracture. The remaining lumbar statures are normal. There is advanced spondylosis with endplate sclerosis and vacuum gas phenomena, unchanged when the differing modalities are taken into account. IMPRESSION: 1. Chronic spondylosis and facet arthrosis with stable minimal retrolisthesis degenerative of L4 on L5. 2. Having developed since the study of April 2016 is a mild L1 superior endplate compression deformity. The precise acuity is indeterminate, correlate with the level of pain. If indicated, a repeat MRI may be of utility. Dictated by: Dictated on workstation # [id number]
[2017-01-14] MEDS ORDERED: TRAM50TA2 PO (15:57)
[2017-01-14] MEDS ORDERED: CYCL10TA9 PO (15:57)
[2017-01-14] MEDS ORDERED: CYCLOBENZAPRINE 10 MG (FLEXERIL) TAB PO STA (15:57)
--- NOTE | 2017-01-14 15:57 | ED Back Pain ---
General Chief Complaint: Back Problems Stated Complaint: LOWER BACK PAIN-FALL Nursing Triage Note: Pt c/o lower back pain. Pt reports falling from a standing position on 01/09 and falling out of bed the same day. Pt denies any other injuries from fall. Nursing Sepsis Screen: No Definite Risk History of Present Illness Time Seen by Provider: 15:35 Initial Comments Patient reports 2 falls on 01/09/17, the first she tripped while walking outside and fell landing on her buttocks, the second she rolled out of bed and landed on her buttocks. She reports low back pain. She has a chronic history of lumbar disc disease with herniated disks. She's been referred for surgery in the past with the patient's opted for conservative treatment. She denies any radicular paresthesia symptoms in her lower extremities. Location: Lumbar Spine Timing/Duration: 4-5 Days Severity: Mild Pain/Injury Location: Back Method of Injury: Fall Modifying Factors: Improves With Rest Associated Symptoms: muscle spasms, No tingling in legs/feet, No sensory/motor loss, lower back pain, No loss of bladder control, No loss of bowel control Allergies and Home Medications Allergies Coded Allergies: No Known Drug Allergies (Verified , 01/26/08) Home Medications Aspirin 81 Mg Tabec, 81 MG PO DAILY, (Reported) Atorvastatin Calcium 40 Mg Tablet, 40 MG PO DAILY, (Reported) Canagliflozin 100 Mg Tablet, 100 MG PO DAILY, (Reported) Clopidogrel Bisulfate 75 Mg Tablet, 75 MG PO DAILY, (Reported) Cyanocobalamin 1,000 Mcg/Ml Vial, 1,000 MCG IJ MONTHLY, (Reported) AROUND THE OF EACH MONTH Cyclobenzaprine HCl 10 Mg Tablet, 10 MG PO Q8H, #12 Ref 0 Prescribed by: CONNOR MODI on 01/14/17 1557 Donepezil HCl 5 Mg Tablet, 5 MG PO HS, (Reported) Ergocalciferol 50,000 Units Cap, 50,000 UNITS PO WEEKLY ON MONDAYS, (Reported) Esomeprazole Mag Trihydrate 40 Mg Capsule.dr, 40 MG PO DAILY, (Reported) Insulin Glargine,Hum.rec.anlog 100 Unit/1 Ml Vial, 23 UNIT SQ HS, (Reported) Insulin Lispro 100 Unit/1 Ml Cartridge, 0 SQ PC, (Reported) Mesalamine 1.2 Gm Tablet.dr, 1.2 GM PO, (Reported) Metoprolol Succinate 50 Mg Tab.er.24h, 50 MG PO DAILY, #30 Prescribed by: RD REYNOLDS on 12/03/15 1435 Mirabegron 50 Mg Tab.er.24h, 50 MG PO, (Reported) Pioglitazone Hcl 15 Mg Tablet, 15 MG PO DAILY, (Reported) Tramadol HCl 50 Mg Tablet, 50 MG PO Q8H PRN for PAIN-MILD, #12 Ref 0 Prescribed by: CONNOR MODI on 01/14/17 1557 Venlafaxine Hcl 150 Mg Cap.sr.24h, 150 MG PO DAILY, (Reported) Constitutional: no symptoms reported, see HPI Genitourinary: no symptoms reported, see HPI Musculoskeletal: see HPI, back pain, muscle cramps All Other Systems Reviewed Negative Unless Noted: Yes Past Hnoedel-Rqbgfk-Qriqpw Hx Patient Social History Type Used: Cigarettes 2nd Hand Smoke Exposure: No Recent Foreign Travel: No Contact w/Someone Who Travel: No Recent Infectious Disease Expo: No Recent Hopitalizations: No Immunizations Up To Date Tetanus Booster (TDap): Unknown PED Vaccines UTD: No Date of Pneumonia Vaccine: Jan 08, 2014 Date of Influenza Vaccine: Feb 08, 2016 Surgeries Surgeries: Appendectomy, Coronary Stent, Eye Surgery, 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, Joint Replacement, Orthopedic Cardiovascular Cardiac Disorders: Coronary Artery Disease, Heart Attack, High Cholesterol Neurological Neurological Disorders: TIA 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 System Hx 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 Disorders: No Sexually Transmitted Disease: No HIV/AIDS: No Female 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 Disorders: Denies Gastrointestinal Gastrointestinal Disorders: Colitis, Gastroesophageal Reflux, Chronic Diarrhea Musculoskeletal Musculoskeletal Disorders: Osteoporosis, Arthritis Endocrine Endocrine Disorders: Diabetes, 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 Hearing Impairment: Denies Psychosocial Behavioral Health Disorders: Anxiety Integumentary Skin/Integumentary Disorders: Recent Skin Changes Blood Transfusions Adverse Reaction to a Blood Tr: No Reviewed Nursing Assessment Reviewed/Agree w Nursing PMH: Yes Family Medical History Significant Family History: No Pertinent Family Hx Family Medial History: Alzheimer's disease (dad) Arthritis (mom) Asthma (sister) Completed stroke (mom) Diabetes mellitus (mom) Fibrocystic disease of breast (sister) Hypercholesterolemia (mom) Hypertension (mom) Myocardial infarction (mom) Neoplasm Parkinson's disease Severe allergy (sister) No Family History of: AIDS Abdominal aortic aneurysm [place]'s disease Alcoholism Aphasia Cancer of mouth Cardiovascular disease Cataracts Colon cancer Congenital disease Congenital heart disease Coronary thrombosis Cystic fibrosis Deafness or hearing loss Dementia Drug abuse Dysphasia Gastroenteritis Glaucoma Headache disorder Infertility Kidney disease Not obtainable due to adoption Osteoporosis (breast cancer) Prostate cancer Psychosocial problem Respiratory disorder Seizure disorder Thyroid disease Visual disorder Physical Exam Vital Signs Vital Sign - Last 12Hours 01/14/17 14:03 Temp 97.5 Pulse 80 Resp 18 B/P (MAP) 136/57 Pulse Ox 97 O2 Delivery Room Air Capillary Refill : Less Than 3 Seconds General Appearance: No Apparent Distress, WD/WN Neck: Full Range of Motion, Normal Inspection, Non Tender, Supple Cardiovascular: Regular Rate, Rhythm, No Edema, No JVD, No Murmur, Normal Peripheral Pulses Respiratory: Chest Non Tender, Lungs Clear Gastrointestinal: Normal Bowel Sounds, Non Tender, Soft Back: Normal Inspection, No CVA Tenderness, Decreased Range of Motion, Muscle Spasm (lumbar paraspinal muscles), Vertebral Tenderness (lumbar spine), Other ( power V/V L4 to S1. Able to ambulate with a normal heel toe gait, full power toe and he'll walking.) Extremity: Normal Capillary Refill, Normal Inspection, Normal Range of Motion, Non Tender, No Calf Tenderness, No Pedal Edema Neurologic/Psychiatric: Alert, Oriented x3, No Motor/Sensory Deficits, Normal Mood/Affect Progress/Results/Core Measures Results/Orders My Orders Orders - CONNOR MODI Lumbar Spine - 2-3 Views (01/14/17 15:16) Cyclobenzaprine Tablet (Flexeril Tablet) (01/14/17 15:57) Tramadol Tablet (Ultram Tablet) (01/14/17 15:57) Vital Signs/I&O Vital Sign - Last 12Hours 01/14/17 14:03 Temp 97.5 Pulse 80 Resp 18 B/P (MAP) 136/57 Pulse Ox 97 O2 Delivery Room Air Blood Pressure Mean: 83 Progress Note : Time: 15:35 Progress Note Initial evaluation completed, recommended x-rays of the lumbar spine, tramadol 50 mg by mouth and Flexeril 10 mg by mouth. Ice pack applied to lumbar spine. 1615 patient reports improvement in her symptoms. Discussed results of x-rays, questionable compression fracture at L1, age indeterminate. Patient will follow- up with Dr. Lan early next week if symptoms are continuing to show request an MRI of the lumbar spine to date the fracture. She verbalized understanding and risks of him when she should return to the emergency department. Diagnostic Imaging Diagonstic Imaging: Xray Plain Films/CT/US/NM/MRI: other (lumbar spine.) Comments NAME: EDEL HERRERA [facility] REC#: [id number] PT STATUS: REG ER : 1940 PHYSICIAN: CONNOR MODI ADMIT DATE: 01/14/17/ER Draft Date of Exam:01/14/17 LUMBAR SPINE - 2-3 VIEWS INDICATION: Fall resulting in continued back pain. COMPARISON: Correlation is limited to a lumbar MRI performed on 04/09/2016. FINDINGS: Trace retrolisthesis of 3-4 mm of L4 on L5 is unchanged. There is some straightening of the lumbar lordosis, unchanged, and L1 mild superior endplate concavity at its mid to anterior thirds resulting in about 10-15% stature loss which has developed from the prior exam; however, its precise acuity is indeterminate. If this correlates with the level of pain, consider a repeat MRI to assess for marrow edema, particularly if treatment such as kyphoplasty would be considered for painful acute fracture. The remaining lumbar statures are normal. There is advanced spondylosis with endplate sclerosis and vacuum gas phenomena, unchanged when the differing modalities are taken into account. IMPRESSION: 1. Chronic spondylosis and facet arthrosis with stable minimal retrolisthesis degenerative of L4 on L5. 2. Having developed since the study of April 2016 is a mild L1 superior endplate compression deformity. The precise acuity is indeterminate, correlate with the level of pain. If indicated, a repeat MRI may be of utility. Dictated on workstation # [id number] Dict: 01/14/17 1536 Trans: 01/14/17 1552 [id number] Interpreted by: HARRY KEY Electronically signed by: Reviewed: Reviewed by Me Departure Impression Impression: Primary Impression: Back pain Qualified Codes: M54.5 - Low back pain Additional Impressions: Back strain Qualified Codes: S39.012A - Strain of muscle, fascia and tendon of lower back , initial encounter Degenerative disc disease, lumbar Disposition: 01 HOME, SELF-CARE Condition: Stable Departure-Patient Inst. Decision time for Depature: 15:45 Referrals: LAN,JOSEY J DO (PCP/Family) Primary Care Physician Patient Instructions: Low Back Pain (DC), Muscle Strain (DC) Add. Discharge Instructions: Ice to low back 20 minutes every 3-4 hours. Use medication as prescribed for pain. Follow-up with Dr. Lan early next week if continued symptoms for an MRI of the lumbar spine to determine the age of the possible compression fracture at L1 Return to emergency Department if pain becomes consistent and unrelieved with medication, urinary/bowel retention or incontinence, new problems or concerns All discharge instructions reviewed with patient and/or family. Voiced understanding. Scripts Cyclobenzaprine HCl (Cyclobenzaprine HCl) 10 Mg Tablet 10 MG PO Q8H for Spasms, #12 TAB 0 Refills Prov: CONNOR MODI 01/14/17 Tramadol HCl (Tramadol HCl) 50 Mg Tablet 50 MG PO Q8H Y for PAIN-MILD, #12 TAB 0 Refills Prov: CONNOR OMDI 01/14/17 Copy Copies To 1: JOSEY LAN AMY ARNP Jan 14, 2017 15:57
[2017-01-14 16:54] VITALS: BP 136/57
[2017-02-05] MEDS ORDERED: CIPR500T4 PO (11:25)
== END 2017-01-14 16:54 | disposition home or self-care (01) ==
LOC: EDUNIT# 13:29 → ER 13:33
DX: S39.012A Strain of muscle, fascia and tendon of lower back, initial encounter (principal); M51.36 Other intervertebral disc degeneration, lumbar region; K21.9 Gastro-esophageal reflux disease without esophagitis; E11.9 Type 2 diabetes mellitus without complications; F41.9 Anxiety disorder, unspecified; I25.10 Atherosclerotic heart disease of native coronary artery without angina pectoris; I25.2 Old myocardial infarction; E78.00 Pure hypercholesterolemia, unspecified; Z86.73 Personal history of transient ischemic attack (TIA), and cerebral infarction without residual deficits; Z87.19 Personal history of other diseases of the digestive system; Z95.5 Presence of coronary angioplasty implant and graft; Z90.710 Acquired absence of both cervix and uterus; Z79.82 Long term (current) use of aspirin; Z79.4 Long term (current) use of insulin; Z80.9 Family history of malignant neoplasm, unspecified; W01.0XXA Fall on same level from slipping, tripping and stumbling without subsequent striking against object, initial encounter; Y93.01 Activity, walking, marching and hiking
CPT/HCPCS: 72100; 99283

== ENCOUNTER → 2017-01-26 | Outpatient (CLI) | payer MEDICARE, MEDICAID ==
[~2017-01-26] MED LIST changes: +CYCL10TA9 PO; +TRAM50TA2 PO
--- NOTE | 2017-01-26 12:37 | Diagnostic Imaging Report ---
EXAMINATION: Multiplanar and multisequence of the thoracic spine performed without intravenous contrast. INDICATION: Repeated falls. FINDINGS: The thoracic spine demonstrate normal alignment of the posterior spinal line. There is a compression fracture in L1 vertebral body with hyperintense signal that might represent kyphoplasty change from cement. Correlate with history. There is minimal retropulsion of the posterior margin of L1 vertebral body with no high-grade spinal canal stenosis. In the thoracic spine the vertebral body heights are preserved. There is no significant marrow signal abnormality. No compression fracture. The spinal canal is widely patent. No spinal canal stenosis or neural foramina narrowing is seen at any level. The spinal cord is normal in caliber, contour and signal. There is a right convexity curvature in the upper thoracic spine. This can be better evaluated with an AP radiograph. This could be positional on this exam. There is disc desiccation at all levels with no significant disc herniation seen at any level. Minimal reactive degenerative marrow signal along the discs is seen and multilevel minimal anterior osteophytes noted. IMPRESSION: L1 compression fracture with suggestion of a kyphoplasty change. No compression fracture in the thoracic spine. Dictated by: Dictated on workstation # [id number]
--- NOTE | 2017-01-26 12:40 | Diagnostic Imaging Report ---
PROCEDURE: MRI lumbar spine. TECHNIQUE: Multiplanar, multisequence MRI of the lumbar spine was performed without contrast. FINDINGS: There is a compression fracture of about 60% involving the L1 vertebral body. There is prominent low signal intensity on all sequences noted within the compressed vertebra which is probably related to recent kyphoplasty. If this was not performed, then this signal might be related to compressed bone. No definite underlying lesion is seen. There is mild edema noted in the vertebral body. Other vertebral bodies demonstrate no compression fracture. There is straightening of the lordotic curvature which might relate to muscle spasm. There is a minimal anterior translation of L2 over L3 and mild retrolisthesis of L4 over L5. There is multilevel significant disc height loss and endplate irregularity and surrounding marrow edema related to degenerative changes. The cauda equina and conus medullaris appear grossly unremarkable. T12/L1: There is a mild disc bulge. At L1 level posterior wall is a bulging towards the spinal canal with no significant spinal calcinosis however. This relates to the compression fracture of the vertebra. No foraminal stenosis. L1/2: There is a diffuse disc bulge with no spinal canal or foramina stenosis. L2/3: There is a prominent disc bulge resulting in severe central canal stenosis reducing the AP dimension of the canal to 5 mm. There is moderate facet hypertrophy resulting in lateral recess stenosis moderate to severe on the left and moderate on the right side. The foramina demonstrate moderate stenosis on the left and no stenosis on the right. L3/L4: There is a diffuse disc bulge and moderate facet hypertrophy. There is a moderate central canal stenosis reducing the AP dimension of the canal to 7.2 mm. Bilateral mild to moderate lateral recess stenosis is seen. The foramina demonstrate moderate to severe stenosis on the left and no stenosis on the right. At L4/5: There is a diffuse disc bulge and moderate facet hypertrophy. There is a mild central canal stenosis reducing the AP dimension of the canal to 8.7 mm. The lateral recess demonstrate moderate to severe stenosis bilaterally encroaching upon the descending L5 nerve roots. The foramina demonstrate moderate stenosis only on the right side. L5/S1: There is a diffuse disc bulge and moderate facet hypertrophy. There is mild central canal stenosis reducing the AP dimension of the canal to 8.7 mm and bilateral lateral recess stenosis moderate on the right side and moderate to severe on the left abutting the descending S1 nerve roots. The foramina demonstrate mild stenosis on the right side. IMPRESSION: 1. A 60% compression fracture of L1 vertebral body with suggestion of kyphoplasty/ cementoplasty. Correlate with history. Remaining mild marrow edema in this vertebral body is seen. 2. Advanced degenerative changes with multilevel spinal canal and foramina stenosis. Dictated by: Dictated on workstation # [id number]
== END ==
LOC: RAD 09:50
PROVIDERS: ATTEND Internal Medicine
DX: M48.56XA Collapsed vertebra, not elsewhere classified, lumbar region, initial encounter for fracture (principal)
CPT/HCPCS: 72146; 72148

== ENCOUNTER → 2017-01-28 | Outpatient (CLI) | payer MEDICARE, MEDICAID ==
[~2017-01-28] MED LIST changes: +ASPI-586 PO; +CLOP75TA69 PO; +CNC1KV IJ; +DONE10TA12 PO; +L.AC1CAP6 PO; +MELA10TA3 PO; +SULF1TAB35 PO
--- NOTE | 2017-01-28 15:05 | Diagnostic Imaging Report ---
Three views of the lumbar spine. INDICATION: Fall. FINDINGS: There is a compression fracture at L1 vertebral body with 60% vertebral body height loss seen. There is grade 1 retrolisthesis of L4 over L5. Prominent disc degenerative changes in the mid and lower lumbar spine seen. Advanced atherosclerotic changes in the aorta noted. IMPRESSION: 60% compression fracture of L1 vertebral body. Dictated by: Dictated on workstation # [id number]
== END ==
LOC: RAD 10:14
PROVIDERS: ATTEND Internal Medicine
DX: W19.XXXA Unspecified fall, initial encounter; S32.010A Wedge compression fracture of first lumbar vertebra, initial encounter for closed fracture; Y99.8 Other external cause status
CPT/HCPCS: 72100

== ENCOUNTER 2017-01-29 05:26 | Outpatient (CLI) | payer MEDICARE, MEDICAID ==
[~2017-01-29] VITALS: Ht 170.2 cm; Wt 77.1 kg
[~2017-01-29 05:26] MED LIST changes: -ASPI-586 PO; -CLOP75TA69 PO; -CNC1KV IJ; -DONE10TA12 PO; -L.AC1CAP6 PO; -MELA10TA3 PO; -SULF1TAB35 PO
[2017-01-29] MEDS ORDERED: DONE10TA12 PO (10:15)
[2017-01-29] MEDS ORDERED: PIOG15TA22 PO (10:15)
[2017-01-29] MEDS ORDERED: SULF1TAB35 PO (10:15)
[2017-01-29] MEDS ORDERED: L.AC1CAP6 PO (10:34)
[2017-01-29] MEDS ORDERED: VENL150C PO (10:34)
[2017-01-29] MEDS ORDERED: CNC1KV IJ (10:34)
[2017-01-29] MEDS ORDERED: ATOR40TA PO (10:34)
[2017-01-29] MEDS ORDERED: NF-ESOM40C PO (10:34)
[2017-01-29] MEDS ORDERED: ASPI-586 PO (10:34)
[2017-01-29] MEDS ORDERED: CLOP75TA69 PO (10:34)
[2017-01-29] MEDS ORDERED: MELA10TA3 PO (10:34)
[2017-02-05] MEDS ORDERED: CIPR500T4 PO (11:25)
== END 2017-01-29 10:38 ==
LOC: PREOP 05:26
DX: Z01.818 Encounter for other preprocedural examination (principal); S32.010A Wedge compression fracture of first lumbar vertebra, initial encounter for closed fracture; X58.XXXA Exposure to other specified factors, initial encounter; Y99.8 Other external cause status

== ENCOUNTER 2017-02-02 11:10 | Day surgery (SDC) | payer MEDICARE, MEDICAID ==
[~2017-02-02] VITALS: Ht 170.2 cm; Wt 77.1 kg
[~2017-02-02 11:10] MED LIST changes: -ATOR80TA76 PO; -DICL100G18 TOP; -DONE10TA41 PO; -ERGO50006 PO; -MESA0.37 PO; -ONDA4TAB11 PO; -VENL150C98 PO
[2017-02-02 11:33] LABS: MEAN CORPUSCULAR HEMOGLOBIN 15 PG (25-34); MEAN CORPUSCULAR HGB CONC 28 G/DL (32-36); MEAN CORPUSCULAR VOLUME 53 FL (80-99); PLATELET COUNT 693 10^3/uL (130-400); RED BLOOD COUNT 7.28 10^6/uL (4.35-5.85); RED CELL DISTRIBUTION WIDTH 27.4 % (10.0-14.5); WHITE BLOOD COUNT 12.4 10^3/uL (4.3-11.0)
[2017-02-02 11:35] VITALS: BP 170/67
[2017-02-02 11:36] LABS: INR 0.9 (0.8-1.4); PROTHROMBIN TIME PATIENT 12.5 SEC (12.2-14.7)
[2017-02-02] MEDS ORDERED: LIDOCAINE 1% INJ 20 ML (XYLOCAINE) VIAL ONE (12:06)
[2017-02-02] MEDS ORDERED: CATHETER FLUSH 10 ML SYR IV PRN (12:15)
[2017-02-02] MEDS ORDERED: ceFAZolin 1 GM/NS 50 ML IVPB IV ONE ×2 (12:15)
[2017-02-02] MEDS ORDERED: fentaNYL INJECTION 100 MCG/2 ML AMP ONE (12:22)
[2017-02-02] MEDS ORDERED: proPOfol 200 MG/20 ML (DIPRIVAN) VIAL IV ONE ×2 (12:22→13:34)
[2017-02-02] MEDS ORDERED: LACTATED RINGERS 1,000 ML IV PRN (12:23)
--- NOTE | 2017-02-02 14:35 | Pre-Procedure Progress Note ---
Pre-Procedure Progress Note H&P Reviewed The H&P was reviewed, patient examined and no changes noted. Date H&P Reviewed: Feb 02, 2017 Time H&P Reviewed: 12:00 Pre-Procedure Diagnosis: L1 compression fracture PRAKASH MOJICA MD Feb 02, 2017 14:35
--- NOTE | 2017-02-02 14:38 | Discharge Instructions ---
Discharge Instructions Home Medicaitons Changes Hold any current blood thinners for 24 hours, otherwise no change to home medications. PRAKASH MOJICA MD Feb 02, 2017 14:38
[2017-02-02] MEDS ORDERED: HYDROcodone/APAP 5 MG/325 MG (LORTAB) TAB PO PRN (14:45)
[2017-02-02] MEDS ORDERED: CATHETER FLUSH 10 ML SYR IV ONE (14:45)
[2017-02-02 15:10] VITALS: BP 150/55
[2017-02-02 15:30] VITALS: BP 153/74
[2017-02-02 15:45] VITALS: BP 158/69
--- NOTE | 2017-02-02 15:55 | Diagnostic Imaging Report ---
EXAMINATION: Kyphoplasty , and biopsy with fluoroscopy guidance at the L1 level. INDICATION: 36-year-old female patient with the injury 3 weeks ago and significant back pain. She was found to have an L1 compression fracture. The significant pain more than 7-10 pain even when the patient is lying in bed persisted and is not adequately controlled with the oral pain medications. Furthermore over the last 3 weeks it has severely limited due to patient's level of activity and therefore a kyphoplasty is indicated and appropriate in this patient. CONSENT: Informed consent was obtained from the patient. The risks, benefits, potential complications and alternatives were reviewed and all questions answered to the patient's satisfaction. The patient's vital signs, cardiac rhythm, and pulse oximetry were observed throughout the procedure by qualified nursing personnel. ANESTHESIA: See anesthesia note. FLUOROSCOPY TIME: 4 minutes and 25 seconds minutes. Medications: Ancef 1 g IV preoperatively. Estimated blood loss: Less than 20 mL. PROCEDURE: Maximal sterile barrier preparation and draping is performed to the back with the patient prone on the operative table, including sterile covering of the fluoroscopy machine. The L1 vertebral level is localized with anterior and lateral fluoroscopic visualization. Appropriate orientation and angle was marked and a transpedicular approach was deemed appropriate. A left paramedian skin incision is made and cannula with distal half size of 12-gauge is advanced under fluoroscopic guidance in both projections. This is advanced through the pedicle under fluoroscopic guidance and the tip of the cannula was placed along the posterior one-third of the vertebral body. This is followed by right paramedian skin incision and the steps repeated with transpedicular cannula placed similarly with the tip at the posterior third of the vertebral body. After positioning the needles into the vertebral body, a vertebral body biopsy is performed from the left transpedicular access needle. Subsequently, a manual drill is utilized under fluoroscopic guidance to create a tract was performed to near the anterior border of the vertebral body. Subsequently bilateral 15/2 balloons are advanced into the vertebral body and inflated with rated pressure, upto 250. Considerable reduction of the compression fracture is achieved with balloon inflation. Subsequently cement injection after appropriate mixing and maturation is performed alternatively in both cannulas until filling into the posterior third of the vertebral body is achieved. Total of 6 cc of cement introduced. Cement introduction was performed under imaging guidance. No extravasation of cement into the spinal canal is seen. Both cannulas were removed with the stylet in place, after cement introduction. No immediate complications. IMPRESSION: Successful L1 kyphoplasty via fluoroscopy-guided bilateral transpedicular approach. Dictated by: Dictated on workstation # [id number]
[2017-02-02 16:00] VITALS: BP 129/97
[2017-02-03] MEDS ORDERED: ONDA4TAB11 PO (16:44)
[2017-02-03] MEDS ORDERED: TRAM50TA2 PO (16:44)
[2017-02-05] MEDS ORDERED: CIPR500T4 PO (11:25)
== END 2017-02-02 16:45 | disposition home or self-care (01) ==
LOC: SDC 11:10
DX: S32.010A Wedge compression fracture of first lumbar vertebra, initial encounter for closed fracture (principal); X58.XXXA Exposure to other specified factors, initial encounter; Y99.8 Other external cause status; I10 Essential (primary) hypertension; I25.10 Atherosclerotic heart disease of native coronary artery without angina pectoris; F17.210 Nicotine dependence, cigarettes, uncomplicated; F03.90 Unspecified dementia, unspecified severity, without behavioral disturbance, psychotic disturbance, mood disturbance, and anxiety; F41.9 Anxiety disorder, unspecified; K21.9 Gastro-esophageal reflux disease without esophagitis; E11.9 Type 2 diabetes mellitus without complications; Z95.5 Presence of coronary angioplasty implant and graft; Z79.4 Long term (current) use of insulin; Z79.899 Other long term (current) drug therapy
CPT/HCPCS: 36415; 82962; 85027; 85610; 85730; 87081; 88304

== ENCOUNTER → 2017-02-02 | Outpatient (CLI) | payer MEDICARE, MEDICAID ==
[~2017-02-02] MED LIST changes: +ASPI-586 PO; +ATOR80TA76 PO; +CLOP75TA69 PO; +CNC1KV IJ; +DICL100G18 TOP; +DONE10TA12 PO; +DONE10TA41 PO; +ERGO50006 PO; +L.AC1CAP6 PO; +MELA10TA3 PO; +MESA0.37 PO; +ONDA4TAB11 PO; +SULF1TAB35 PO; +VENL150C98 PO
[2017-02-02 11:34] LABS: ALANINE AMINOTRANSFERASE 16 U/L (0-55); ALBUMIN 4.2 GM/DL (3.2-4.5); ANION GAP 11 MMOL/L (5-14); ASPARTATE AMINO TRANSFERASE 18 U/L (5-34); BILIRUBIN,TOTAL 0.5 MG/DL (0.1-1.0); BLOOD UREA NITROGEN 10 MG/DL (7-18); BUN/CREATININE RATIO 14; CALCIUM 9.6 MG/DL (8.5-10.1); CARBON DIOXIDE 20 MMOL/L (21-32); CHLORIDE 103 MMOL/L (98-107); CHOLESTEROL 147 MG/DL (< 200); CREATININE SERUM 0.73 MG/DL (0.60-1.30); DIRECT LDL 85 MG/DL (1-129); GFR ESTIMATED > 60; GLUCOSE 141 MG/DL (70-105); POTASSIUM 4.5 MMOL/L (3.6-5.0); SODIUM 134 MMOL/L (135-145); TOTAL PROTEIN 7.7 GM/DL (6.4-8.2); TRIGLYCERIDES 94 MG/DL (<150); VLDL CHOLESTEROL 19 MG/DL (5-40)
== END ==
LOC: LAB 10:24
PROVIDERS: ATTEND Nurse Practitioner Family
DX: I25.10 Atherosclerotic heart disease of native coronary artery without angina pectoris (principal); E78.4 Other hyperlipidemia; I65.23 Occlusion and stenosis of bilateral carotid arteries; I10 Essential (primary) hypertension
CPT/HCPCS: 36415; 80053; 80061

== ENCOUNTER 2017-02-03 13:41 | Inpatient (IN) | payer MEDICARE, MEDICAID ==
[~2017-02-03] VITALS: Ht 172.7 cm; Wt 59.1 kg
[2017-02-03] MEDS ORDERED: NS IV 1000 ML 1,000 ML IV ONE (14:43)
[2017-02-03] MEDS ORDERED: fentaNYL INJECTION 100 MCG/2 ML AMP IVP STA (14:43)
[2017-02-03] MEDS ORDERED: ONDANSETRON 4 MG/2 ML (SDV) Z0FRAN IVP ONE ×2 (14:45→18:15)
--- NOTE | 2017-02-03 14:54 | ED General ---
General Chief Complaint: General Problems/Pain Stated Complaint: GENERALIZED PAIN Nursing Triage Note: PT BROUGHT IN BY [facility] WITH C/O GENERALIZED PAIN AFTER KYPHOPLASTY YESTERDAY. Nursing Sepsis Screen: No Definite Risk Source of Information: Patient, Family Exam Limitations: No Limitations History of Present Illness Time Seen by Provider: 14:33 Initial Comments 76-year-old female patient presents to the emergency department with complaints of generalized pain after having a kyphoplasty yesterday at [facility]. Does complain of nausea without vomiting. Denies fevers. Patient takes tramadol for pain on a regular basis, but has not taken any tramadol today. Timing/Duration: 1 Day Modifying Factors: worse with Movement Allergies and Home Medications Allergies Coded Allergies: No Known Drug Allergies (Unverified , 01/29/17) Home Medications Aspirin 81 Mg Tablet.dr, 81 MG PO DAILY, (Reported) Atorvastatin Calcium 80 Mg Tablet, 80 MG PO DAILY, (Reported) Canagliflozin 100 Mg Tablet, 100 MG PO DAILY, (Reported) Ciprofloxacin HCl 500 Mg Tablet, 500 MG PO BID, #10 Prescribed by: CARMEN RAMIREZ on 02/05/17 1125 Clopidogrel Bisulfate 75 Mg Tablet, 75 MG PO DAILY, (Reported) Cyanocobalamin 1,000 Mcg/Ml Inj, 1,000 MCG IJ OF MONTH, (Reported) Diclofenac Sodium 100 Gm Gel..gram., TOP BID PRN for JOINT PAIN, (Reported) Donepezil HCl 10 Mg Tablet, 10 MG PO HS, (Reported) Ergocalciferol (Vitamin D2) 50,000 Unit Capsule, 50,000 UNITS PO Mo, (Reported) Esomeprazole Magnesium 40 Mg Cap, 40 MG PO DAILY, (Reported) Insulin Glargine,Hum.rec.anlog 100 Unit/1 Ml Vial, 23 UNIT SQ HS, (Reported) Insulin Lispro 100 Unit/1 Ml Vial, SC PC, (Reported) BELOW 100 = O UNITS 100-130 = 2 UNITS 131-160 = 3 UNITS 161-190 = 4 UNITS 191 AND ABOVE = 5 UNITS L.acidoph & Paracasei,B.lactis 1 Each Capsule, 1 CAP PO DAILY, (Reported) Melatonin 10 Mg Tablet.er, 10 MG PO HS, (Reported) Mesalamine 0.375 Gm Cap.er.24h, 2 CAP PO DAILY, (Reported) LAST DOSE TO BE TAKEN 02-05-17 Mirabegron 50 Mg Tab.er.24h, 50 MG PO DAILY, (Reported) Pioglitazone HCl 15 Mg Tablet, 15 MG PO DAILY, (Reported) Tramadol HCl 50 Mg Tablet, 50 MG PO Q6H PRN for PAIN-MODERATE, (Reported) Venlafaxine HCl 150 Mg Cap.er.24h, 150 MG PO HS, (Reported) Constitutional: No chills, No dizziness, No fever, malaise EENTM: no symptoms reported Respiratory: No cough, No phlegm, No short of breath Cardiovascular: No chest pain, No edema, No palpitations, No syncope Gastrointestinal: No abdominal pain, No constipation, No diarrhea, loss of appetite, nausea, No vomiting Genitourinary: No decreased output, No dysuria, No frequency, No hematuria Musculoskeletal: see HPI, back pain, other (generalized pain) Skin: no symptoms reported Psychiatric/Neurological: Denies Headache, Denies Numbness, Denies Paresthesia , Denies Seizure, Denies Tingling, Denies Weakness All Other Systems Reviewed Negative Unless Noted: Yes (Negative excepted noted.) Past Tlhlfqn-Gwzhmj-Jozmcx Hx Patient Social History Alcohol Use: Denies Use Recreational Drug Use: No Smoking Status: Current Someday Smoker Type Used: Cigarettes 2nd Hand Smoke Exposure: No Recent Foreign Travel: No Contact w/Someone Who Travel: No Recent Infectious Disease Expo: No Recent Hopitalizations: No Physical Abuse: No Sexual Abuse: No Immunizations Up To Date Tetanus Booster (TDap): Unknown PED Vaccines UTD: No Date of Pneumonia Vaccine: Jan 08, 2014 Date of Influenza Vaccine: Feb 08, 2016 Seasonal Allergies Seasonal Allergies: No Surgeries History of Surgeries: Yes (CAROTID, STENTS, KYPHOPLASTY, L HIP, R ANKLE) Surgeries: Appendectomy, Coronary Stent, Eye Surgery, 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, Joint Replacement, Orthopedic Respiratory History of Respiratory Disorde: No Cardiovascular History of Cardiac Disorders: Yes (STENTS 2001, ) Cardiac Disorders: Coronary Artery Disease, Heart Attack, High Cholesterol Neurological History of Neurological Disord: Yes (ONSET OF DEMENTIA) Neurological Disorders: Dementia, TIA 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 System Hx 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 Disorders: No Sexually Transmitted Disease: No HIV/AIDS: No Female 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 Disorders: Denies 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 Gastrointestinal History of Gastrointestinal Di: Yes Gastrointestinal Disorders: Colitis, Gastroesophageal Reflux, Chronic Diarrhea Musculoskeletal History of Musculoskeletal Dis: Yes (COMPR FX L1) Musculoskeletal Disorders: Osteoporosis, Arthritis, Chronic Back Pain Endocrine History of Endocrine Disorders: Yes Endocrine Disorders: Diabetes, 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 Hearing Impairment: Denies Cancer History of Cancer: No Psychosocial History of Psychiatric Problem: Yes Behavioral Health Disorders: Anxiety Suicide Risk Score: 0 Integumentary History of Skin or Integumenta: No Skin/Integumentary Disorders: Recent Skin Changes Blood Transfusions History of Blood Disorders: No Adverse Reaction to a Blood Tr: No (N/A) Reviewed Nursing Assessment Reviewed/Agree w Nursing PMH: Yes Family Medical History Significant Family History: No Pertinent Family Hx Family Medial History: Alzheimer's disease (dad) Arthritis (mom) Asthma (sister) Completed stroke (mom) Diabetes mellitus (mom) Fibrocystic disease of breast (sister) Hypercholesterolemia (mom) Hypertension (mom) Myocardial infarction (mom) Neoplasm Parkinson's disease Severe allergy (sister) No Family History of: AIDS Abdominal aortic aneurysm Rosendale's disease Alcoholism Aphasia Cancer of mouth Cardiovascular disease Cataracts Colon cancer Congenital disease Congenital heart disease Coronary thrombosis Cystic fibrosis Deafness or hearing loss Dementia Drug abuse Dysphasia Gastroenteritis Glaucoma Headache disorder Infertility Kidney disease Not obtainable due to adoption Osteoporosis (breast cancer) Prostate cancer Psychosocial problem Respiratory disorder Seizure disorder Thyroid disease Visual disorder Physical Exam Vital Signs Vital Sign - Last 12Hours 02/03/17 13:47 Temp 97.1 Pulse 95 Resp 16 B/P (MAP) 144/68 Pulse Ox 96 O2 Delivery Room Air Capillary Refill : Less Than 3 Seconds General Appearance: No Apparent Distress, Chronically ill, Thin Eyes: Bilateral Eye Normal Inspection, Bilateral Eye PERRL, Bilateral Eye EOMI HEENT: PERRL/EOMI, TMs Normal, Normal ENT Inspection, Other (oral mucosa dry) Neck: Normal Inspection, Non Tender Respiratory: Lungs Clear, Normal Breath Sounds, No Accessory Muscle Use, No Respiratory Distress Cardiovascular: Regular Rate, Rhythm, No Edema, No Murmur, Normal Peripheral Pulses Gastrointestinal: Normal Bowel Sounds, Soft, No Distended, Guarding ( suprapubic guarding), No Rebound, Tenderness (suprapubic tenderness) Back: Decreased Range of Motion, Muscle Spasm, Vertebral Tenderness, Other (2 small puncture sites of the lower back consistent with her kyphoplasty procedure yesterday. No evidence of erythema, warmth, or drainage noted.) Extremity: Normal Capillary Refill, Normal Inspection, Normal Range of Motion, Non Tender, No Calf Tenderness, No Pedal Edema Neurologic/Psychiatric: Alert, Oriented x3, No Motor/Sensory Deficits, Normal Mood/Affect, approver II-XII Norm as Tested Skin: Normal Color, Warm/Dry Progress/Results/Core Measures Results/Orders Lab Results Laboratory Tests Test 02/03/17 17:19 02/03/17 22:11 02/04/17 06:24 02/04/17 06:37 Range/Units Urine Color OTHER H Urine Clarity CLOUDY H Urine pH 6 5-9 Urine Specific [place] 1.020 1.016-1.022 Urine Protein 3+ H NEGATIVE Urine Glucose (UA) 4+ H NEGATIVE Urine Ketones 2+ H NEGATIVE Urine Nitrite NEGATIVE NEGATIVE Urine Bilirubin NEGATIVE NEGATIVE Urine Urobilinogen 1 NORMAL MG/DL Urine Leukocyte Esterase 3+ H NEGATIVE Urine RBC (Auto) 4+ H NEGATIVE Urine RBC TNTC H /HPF Urine WBC TNTC H /HPF Urine Crystals NONE /LPF Urine Bacteria MODERATE H /HPF Urine Casts NONE /LPF Urine Mucus NEGATIVE /LPF Urine Culture Indicated YES Glucometer 166 H 115 H 70-110 MG/DL White Blood Count 12.2 H 4.3-11.0 10^3/uL Red Blood Count 6.01 H 4.35-5.85 10^6/uL Hemoglobin 9.2 L 11.5-16.0 G/DL Hematocrit 33 L 35-52 % Mean Corpuscular Volume 54 L 80-99 FL Mean Corpuscular Hemoglobin 15 L 25-34 PG Mean Corpuscular Hemoglobin Concent 28 L 32-36 G/DL Red Cell Distribution Width 26.2 H 10.0-14.5 % Platelet Count 590 H 130-400 10^3/uL Mean Platelet Volume 7.4-10.4 FL Neutrophils (%) (Auto) 71 42-75 % Lymphocytes (%) (Auto) 17 12-44 % Monocytes (%) (Auto) 8 0-12 % Eosinophils (%) (Auto) 2 0-10 % Basophils (%) (Auto) 2 0-10 % Neutrophils # (Auto) 8.7 H 1.8-7.8 X 10^3 Lymphocytes # (Auto) 2.1 1.0-4.0 X 10^3 Monocytes # (Auto) 1.0 0.0-1.0 X 10^3 Eosinophils # (Auto) 0.3 0.0-0.3 10^3/uL Basophils # (Auto) 0.2 H 0.0-0.1 10^3/uL Sodium Level 137 135-145 MMOL/L Potassium Level 3.9 3.6-5.0 MMOL/L Chloride Level 105 98-107 MMOL/L Carbon Dioxide Level 19 L 21-32 MMOL/L Anion Gap 13 5-14 MMOL/L Blood Urea Nitrogen 8 7-18 MG/DL Creatinine 0.61 0.60-1.30 MG/DL Estimat Glomerular Filtration Rate > 60 BUN/Creatinine Ratio 13 Glucose Level 100 70-105 MG/DL Calcium Level 8.8 8.5-10.1 MG/DL Total Bilirubin 0.5 0.1-1.0 MG/DL Aspartate Amino Transf (AST/SGOT) 16 5-34 U/L Alanine Aminotransferase (ALT/SGPT) 13 0-55 U/L Alkaline Phosphatase 105 40-136 U/L Total Protein 6.4 6.4-8.2 GM/DL Albumin 3.6 3.2-4.5 GM/DL Test 02/04/17 11:03 02/04/17 15:38 02/04/17 20:33 02/05/17 05:03 Range/Units Glucometer 179 H 141 H 208 H 107 70-110 MG/DL Test 02/05/17 06:13 02/05/17 10:52 Range/Units White Blood Count 11.8 H 4.3-11.0 10^3/uL Red Blood Count 6.32 H 4.35-5.85 10^6/uL Hemoglobin 9.7 L 11.5-16.0 G/DL Hematocrit 34 L 35-52 % Mean Corpuscular Volume 54 L 80-99 FL Mean Corpuscular Hemoglobin 15 L 25-34 PG Mean Corpuscular Hemoglobin Concent 28 L 32-36 G/DL Red Cell Distribution Width 26.6 H 10.0-14.5 % Platelet Count 576 H 130-400 10^3/uL Mean Platelet Volume 7.4-10.4 FL Neutrophils (%) (Auto) 71 42-75 % Lymphocytes (%) (Auto) 17 12-44 % Monocytes (%) (Auto) 9 0-12 % Eosinophils (%) (Auto) 2 0-10 % Basophils (%) (Auto) 1 0-10 % Neutrophils # (Auto) 8.3 H 1.8-7.8 X 10^3 Lymphocytes # (Auto) 2.0 1.0-4.0 X 10^3 Monocytes # (Auto) 1.1 H 0.0-1.0 X 10^3 Eosinophils # (Auto) 0.3 0.0-0.3 10^3/uL Basophils # (Auto) 0.1 0.0-0.1 10^3/uL Sodium Level 138 135-145 MMOL/L Potassium Level 3.7 3.6-5.0 MMOL/L Chloride Level 105 98-107 MMOL/L Carbon Dioxide Level 23 21-32 MMOL/L Anion Gap 10 5-14 MMOL/L Blood Urea Nitrogen 7 7-18 MG/DL Creatinine 0.55 L 0.60-1.30 MG/DL Estimat Glomerular Filtration Rate > 60 BUN/Creatinine Ratio 13 Glucose Level 97 70-105 MG/DL Calcium Level 9.3 8.5-10.1 MG/DL Total Bilirubin 0.4 0.1-1.0 MG/DL Aspartate Amino Transf (AST/SGOT) 19 5-34 U/L Alanine Aminotransferase (ALT/SGPT) 12 0-55 U/L Alkaline Phosphatase 111 40-136 U/L Total Protein 6.6 6.4-8.2 GM/DL Albumin 3.6 3.2-4.5 GM/DL Glucometer 128 H 70-110 MG/DL Micro Results Microbiology 02/03/17 Urine Culture - Preliminary, Resulted NO GROWTH My Orders Orders - KAYLIN PALMA Urine Culture (02/03/17 17:19) Meropenem (Merrem 1000 Mg) (02/03/17 18:15) Ondansetron Injection (Zofran Injectio (02/03/17 18:15) Iv Infusion <= First Hr Ed (02/03/17 ) Medications Given in ED Vital Signs/I&O Vital Sign - Last 12Hours 02/05/17 02/05/17 02/05/17 02/05/17 08:45 09:00 12:00 14:20 Temp 98.4 97.5 Pulse 94 100 100 Resp 18 20 20 B/P (MAP) 144/88 149/67 149/67 Pulse Ox 94 94 96 96 O2 Delivery Room Air Room Air Room Air Room Air Blood Pressure Mean: 93 Diagnostic Imaging Diagonstic Imaging: Xray Plain Films/CT/US/NM/MRI: chest Comments FINDINGS: The lungs are clear with mild hyperinflation seen. The heart size is normal. No effusion or pneumothorax. The mediastinum and lacie appear unremarkable. Kyphoplasty change at the L1 level is seen. IMPRESSION: Mildly hyperinflated clear lungs. Dictated on workstation # [id number] Reviewed: Reviewed by Me (radiology report reviewed by me) Diagonstic Imaging: Xray Plain Films/CT/US/NM/MRI: other (lumbar spine) Comments FINDINGS: There is mild right convexity curvature of the spine seen which could be positional. Status post kyphoplasty change at the L1 vertebral body is noted. The other vertebral bodies demonstrate preserved height. There is minimal retrolisthesis of L4 over L5. Significant disc height loss at the L4-5 is seen with vacuum phenomenon. Vacuum phenomenon is also seen at the L2-3 and L3-4 levels. Multilevel anterior osteophytes are noted. A partially visualized right hip prosthesis is seen. IMPRESSION: 1. Prominent degenerative changes in the lower lumbar spine and grade 1 retrolisthesis of L4 over L5. 2. L1 kyphoplasty changes. 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 This is stable compared to prior exam. There are also scattered and confluent areas of decreased attenuation within the periventricular and subcortical deep white matter consistent with chronic small vessel ischemic changes. There is no new loss of garcía-white matter junction differentiation to suggest new acute territorial infarct. Ventricles and cortical sulci remain diffusely prominent consistent with age-related parenchymal volume loss. There is no new mass effect or midline shift. There is no evidence of intra-or extra-axial intracranial hemorrhage. No extra-axial masses or fluid collections are seen. Bony calvarium is intact. Paranasal sinuses and mastoid air cells are clear. IMPRESSION: 1. No new acute intracranial abnormality. No CT evidence of acute infarct, mass, or hemorrhage. 2. 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 Dictated on workstation # [id number] Reviewed: Reviewed by Me (radiology report reviewed by me) Departure Communication (Admissions) Time/Spoke to Admitting Phy: 17:[address] Ramirez accepts patient to her internal medicine service for IV antibiotics, IVF, and further management. Progress Notes Patient seen and evaluated. Initial labs obtained as well as a chest x-ray, lumbar spine x-ray, and CT head. Patient was given 1 L NS, fentanyl, and zofran with improvement in symptoms. 1715 Patient was able to give a urine specimen. Plan to admit patient due to being on antibiotics for 1 wk and is still noted to have TNTC RBC/WBC. Plan for admission for IV antibiotics due to resistant UTI. Pt verbalized understanding and agrees with the treatment plan. Plan for admission discussed with Dr. Gayle, he agrees with the plan of care. Impression Impression: Primary Impression: urinary tract infection with resistance to antibiotics Additional Impressions: Acute narcotic withdrawal with delirium Status post kyphoplasty Hyponatremia Disposition: ADMITTED INPATIENT Condition: Stable Admissions Decision to Admit Reason: Admit from ER (General) Decision to Admit/Date: Feb 03, 2017 Time/Decision to Admit Time: 17:45 Departure-Patient Inst. Referrals: JOSEY RIDER DO (PCP/Family) Primary Care Physician Add. Discharge Instructions: All discharge instructions reviewed with patient and/or family. Voiced understanding. Scripts Ciprofloxacin HCl (Ciprofloxacin HCl) 500 Mg Tablet 500 MG PO BID, #10 TAB Prov: CARMEN RAMIREZ DO 02/05/17 KAYLIN PALMA Feb 03, 2017 14:54
[2017-02-03 15:12] LABS: BASOPHILS # (AUTO) 0.2 10^3/uL (0.0-0.1); BASOPHILS % (AUTO) 1 % (0-10); EOSINOPHILS # (AUTO) 0.2 10^3/uL (0.0-0.3); EOSINOPHILS % (AUTO) 2 % (0-10); LYMPHOCYTES # (AUTO) 1.4 X 10^3 (1.0-4.0); LYMPHOCYTES % (AUTO) 11 % (12-44); MEAN CORPUSCULAR HEMOGLOBIN 15 PG (25-34); MEAN CORPUSCULAR HGB CONC 29 G/DL (32-36); MEAN CORPUSCULAR VOLUME 53 FL (80-99); MONOCYTES # (AUTO) 1.2 X 10^3 (0.0-1.0); MONOCYTES % (AUTO) 9 % (0-12); NEUTROPHILS # (AUTO) 9.8 X 10^3 (1.8-7.8); NEUTROPHILS % (AUTO) 76 % (42-75); PLATELET COUNT 624 10^3/uL (130-400); RED BLOOD COUNT 6.81 10^6/uL (4.35-5.85); RED CELL DISTRIBUTION WIDTH 26.8 % (10.0-14.5); WHITE BLOOD COUNT 12.8 10^3/uL (4.3-11.0)
[2017-02-03 15:33] LABS: ALANINE AMINOTRANSFERASE 15 U/L (0-55); ALBUMIN 3.9 GM/DL (3.2-4.5); ANION GAP 10 MMOL/L (5-14); ASPARTATE AMINO TRANSFERASE 22 U/L (5-34); BILIRUBIN,TOTAL 0.5 MG/DL (0.1-1.0); BLOOD UREA NITROGEN 15 MG/DL (7-18); BUN/CREATININE RATIO 20; CALCIUM 9.2 MG/DL (8.5-10.1); CARBON DIOXIDE 22 MMOL/L (21-32); CHLORIDE 101 MMOL/L (98-107); CREATININE SERUM 0.74 MG/DL (0.60-1.30); GFR ESTIMATED > 60; GLUCOSE 154 MG/DL (70-105); POTASSIUM 4.1 MMOL/L (3.6-5.0); SODIUM 133 MMOL/L (135-145); TOTAL PROTEIN 7.2 GM/DL (6.4-8.2)
--- NOTE | 2017-02-03 15:38 | Diagnostic Imaging Report ---
PROCEDURE: CT head without contrast. TECHNIQUE: Multiple contiguous axial images were obtained through the brain without the use of intravenous contrast. INDICATION: Generalized pain. Headache. 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 This is stable compared to prior exam. There are also scattered and confluent areas of decreased attenuation within the periventricular and subcortical deep white matter consistent with chronic small vessel ischemic changes. There is no new loss of garcía-white matter junction differentiation to suggest new acute territorial infarct. Ventricles and cortical sulci remain diffusely prominent consistent with age-related parenchymal volume loss. There is no new mass effect or midline shift. There is no evidence of intra-or extra-axial intracranial hemorrhage. No extra-axial masses or fluid collections are seen. Bony calvarium is intact. Paranasal sinuses and mastoid air cells are clear. IMPRESSION: 1. No new acute intracranial abnormality. No CT evidence of acute infarct, mass, or hemorrhage. 2. 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 Dictated by: Dictated on workstation # [id number]
--- NOTE | 2017-02-03 15:50 | Diagnostic Imaging Report ---
EXAMINATION: Three views of the lumbar spine. INDICATION: Back pain. FINDINGS: There is mild right convexity curvature of the spine seen which could be positional. Status post kyphoplasty change at the L1 vertebral body is noted. The other vertebral bodies demonstrate preserved height. There is minimal retrolisthesis of L4 over L5. Significant disc height loss at the L4-5 is seen with vacuum phenomenon. Vacuum phenomenon is also seen at the L2-3 and L3-4 levels. Multilevel anterior osteophytes are noted. A partially visualized right hip prosthesis is seen. IMPRESSION: 1. Prominent degenerative changes in the lower lumbar spine and grade 1 retrolisthesis of L4 over L5. 2. L1 kyphoplasty changes. Dictated by: Dictated on workstation # [id number]
--- NOTE | 2017-02-03 15:59 | Diagnostic Imaging Report ---
EXAMINATION: PA and lateral views of the chest. INDICATION: Back pain. FINDINGS: The lungs are clear with mild hyperinflation seen. The heart size is normal. No effusion or pneumothorax. The mediastinum and lacie appear unremarkable. Kyphoplasty change at the L1 level is seen. IMPRESSION: Mildly hyperinflated clear lungs. Dictated by: Dictated on workstation # [id number]
[2017-02-03] MEDS ORDERED: ONDA4TAB11 PO (16:44)
[2017-02-03] MEDS ORDERED: TRAM50TA2 PO (16:44)
[2017-02-03 17:31] LABS: BILIRUBIN,URINE NEGATIVE (NEGATIVE); KETONES,URINE 2+ (NEGATIVE); LEUKOCYTE ESTERASE ,URINE 3+ (NEGATIVE); NITRITE,URINE NEGATIVE (NEGATIVE); PH,URINE 6 (5-9); PROTEIN,URINE 3+ (NEGATIVE); UROBILINOGEN,URINE 1 MG/DL (NORMAL)
[2017-02-03 17:40] LABS: WBC,URINE TNTC /HPF
[2017-02-03] MEDS ORDERED: MEROPENEM 1,000 MG in NS (IVPB) 100 ML IV ONE (18:15)
[2017-02-03] MEDS ORDERED: NS IV 1000 ML 1,000 ML ONE (19:35)
[2017-02-03 19:45] VITALS: BP 162/64
[2017-02-03] MEDS ORDERED: ACETAMINOPHEN 500 MG TAB (TYLENOL) PO PRN (19:45)
[2017-02-03] MEDS ORDERED: ONDANSETRON 4 MG/2 ML (SDV) Z0FRAN IV PRN (19:45)
[2017-02-03] MEDS ORDERED: fentaNYL INJECTION 100 MCG/2 ML AMP IV PRN (19:45)
[2017-02-03] MEDS ORDERED: CATHETER FLUSH 10 ML SYR IV PRN (20:00)
[2017-02-03] MEDS: NS IV 1000 ML 1,000 ML IV SCH (20:02)
[2017-02-03] MEDS: FAMOTIDINE 20MG/2ML IV (PEPCID) IV SCH (21:25)
[2017-02-03] MEDS: inSUlin (REGULAR) HUMAN 1 UNIT/0.01 ML (CHARGE PER UNIT) SC SCH (22:12)
[2017-02-03] MEDS: MEROPENEM 500 MG/NS 100 ML IVPB IV SCH ×2 (23:55)
[2017-02-04] VITALS: BP 130/51
[2017-02-04 04:00] VITALS: BP 152/69
[2017-02-04] MEDS: MEROPENEM 500 MG/NS 100 ML IVPB IV SCH ×6 (05:28→19:45)
[2017-02-04] MEDS: inSUlin (REGULAR) HUMAN 1 UNIT/0.01 ML (CHARGE PER UNIT) SC SCH ×3 (06:27→16:04)
[2017-02-04 06:47] LABS: BASOPHILS # (AUTO) 0.2 10^3/uL (0.0-0.1); BASOPHILS % (AUTO) 2 % (0-10); EOSINOPHILS # (AUTO) 0.3 10^3/uL (0.0-0.3); EOSINOPHILS % (AUTO) 2 % (0-10); LYMPHOCYTES # (AUTO) 2.1 X 10^3 (1.0-4.0); LYMPHOCYTES % (AUTO) 17 % (12-44); MEAN CORPUSCULAR HEMOGLOBIN 15 PG (25-34); MEAN CORPUSCULAR HGB CONC 28 G/DL (32-36); MEAN CORPUSCULAR VOLUME 54 FL (80-99); MONOCYTES % (AUTO) 8 % (0-12); NEUTROPHILS # (AUTO) 8.7 X 10^3 (1.8-7.8); NEUTROPHILS % (AUTO) 71 % (42-75); PLATELET COUNT 590 10^3/uL (130-400); RED BLOOD COUNT 6.01 10^6/uL (4.35-5.85); RED CELL DISTRIBUTION WIDTH 26.2 % (10.0-14.5); WHITE BLOOD COUNT 12.2 10^3/uL (4.3-11.0)
[2017-02-04 07:08] LABS: ALANINE AMINOTRANSFERASE 13 U/L (0-55); ALBUMIN 3.6 GM/DL (3.2-4.5); ANION GAP 13 MMOL/L (5-14); ASPARTATE AMINO TRANSFERASE 16 U/L (5-34); BILIRUBIN,TOTAL 0.5 MG/DL (0.1-1.0); BLOOD UREA NITROGEN 8 MG/DL (7-18); BUN/CREATININE RATIO 13; CALCIUM 8.8 MG/DL (8.5-10.1); CARBON DIOXIDE 19 MMOL/L (21-32); CHLORIDE 105 MMOL/L (98-107); CREATININE SERUM 0.61 MG/DL (0.60-1.30); GFR ESTIMATED > 60; GLUCOSE 100 MG/DL (70-105); POTASSIUM 3.9 MMOL/L (3.6-5.0); SODIUM 137 MMOL/L (135-145); TOTAL PROTEIN 6.4 GM/DL (6.4-8.2)
[2017-02-04 08:00] VITALS: BP 136/63
[2017-02-04] MEDS: FAMOTIDINE 20MG/2ML IV (PEPCID) IV SCH (08:58)
[2017-02-04] MEDS: NS IV 1000 ML 1,000 ML IV SCH ×2 (09:02→22:40)
[2017-02-04] MEDS ORDERED: INSU100V SC (09:46)
[2017-02-04] MEDS ORDERED: VENL150C98 PO (09:46)
[2017-02-04] MEDS ORDERED: DICL100G18 TOP (09:46)
[2017-02-04] MEDS ORDERED: DONE10TA41 PO (09:46)
[2017-02-04] MEDS ORDERED: MESA0.37 PO (09:46)
[2017-02-04] MEDS ORDERED: TRAM50TA2 PO (09:46)
[2017-02-04] MEDS ORDERED: ERGO50006 PO (09:46)
[2017-02-04] MEDS ORDERED: ATOR80TA76 PO (09:46)
--- NOTE | 2017-02-04 10:40 | History & Physical-Hospitalist ---
HPI History of Present Illness: HPI/Chief Complaint CC: Resistant UTI with altered mental status HPI: This is a 76[address]WF pt of Dr. Lan presented with a resistant UTI s/p kyphoplasty on Wednesday by IR due to compression fracture Dr. Review: Urine cx requested from Dr. Lan's office and there was no h/o UCx Patient Interview: Pt's family was visiting during interview Pt confirms being on Bactrim, prescribed by Dr. Lan on 01/28/17. Pt confirms that she had almost completed the Bactrim. Pt denies having recurrent UTIs and states that this was her first. Family states that she used to walk around, but it has been awhile. Kyphoplasty with Dr. Frost went well Wednesday02/02/17, but pt was not feeling well later in the day. Pt was able to ambulate into her house afterward, but then was unable to get up to the bathroom later in the day. Pt states she has a wheelchair and 2 walkers at home Pt denies wearing O2 or a breathing machine at home Pt confirms smoking - 1 ppd. Pt has not yet had a nicotine patch. Pt denies ETOH use, but likes to drink coffee (she claims to drink 4 pots a day). 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 It appears that she has a resistant bacterial infection and this was discussed. Pt was informed that she will need to stay for a few more days. Physical exam stable Scribed by Kelsi Thakur under the direct supervision of Dr. Ramirez. 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 of [employer]) Alcohol Use: Denies Use Recreational Drug Use: No Smoking Status: Current Everyday Smoker (2 ppd) Type Used: Cigarettes 2nd Hand Smoke Exposure: No Physical Abuse Screen: No Sexual Abuse: No Recent Foreign Travel: No Contact w/other who traveled: No Recent Hopitalizations: No Recent Infectious Disease Expo: No Immunizations Up To Date Tetanus Booster (TDap): Unknown Pediatric: No Date of Pneumonia Vaccine: Jan 08, 2014 Date of Influenza Vaccine: Feb 08, 2016 Seasonal Allergies Seasonal Allergies: No Surgeries Yes (CAROTID, STENTS, KYPHOPLASTY, L HIP, R ANKLE) Appendectomy, Coronary Stent, Eye Surgery, 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, Joint Replacement, Orthopedic Respiratory No Cardiovascular Yes (STENTS 2001) Coronary Artery Disease, Heart Attack, High Cholesterol Neurological Yes (ONSET OF DEMENTIA) Dementia, TIA 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 System Hx 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 Disorders: No Sexually Transmitted Disease: No HIV/AIDS: No Female 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 Disorders: Denies 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 Gastrointestinal Yes Colitis, Gastroesophageal Reflux, Chronic Diarrhea Musculoskeletal Yes (COMPR FX L1) Osteoporosis, Arthritis, Chronic Back Pain Endocrine History of Endocrine Disorders: Yes Endocrine Disorders: Diabetes, 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 Hearing Impairment: Denies Cancer No Psychosocial History of Psychiatric Problem: Yes Behavioral Health Disorders: Anxiety Integumentary History of Skin or Integumenta: No Skin/Integumentary Disorders: Recent Skin Changes Blood Transfusions History of Blood Disorders: No Adverse Reaction to a Blood Tr: No (N/A) Reviewed Nursing Assessment Reviewed/Agree w Nursing PMH: Yes Family Medical History Significant Family History: No Pertinent Family Hx Family Hx: Alzheimer's disease (dad) Arthritis (mom) Asthma (sister) Completed stroke (mom) Diabetes mellitus (mom) Fibrocystic disease of breast (sister) Hypercholesterolemia (mom) Hypertension (mom) Myocardial infarction (mom) Neoplasm Parkinson's disease Severe allergy (sister) No Family History of: AIDS Abdominal aortic aneurysm [place]'s disease Alcoholism Aphasia Cancer of mouth Cardiovascular disease Cataracts Colon cancer Congenital disease Congenital heart disease Coronary thrombosis Cystic fibrosis Deafness or hearing loss Dementia Drug abuse Dysphasia Gastroenteritis Glaucoma Headache disorder Infertility Kidney disease Not obtainable due to adoption Osteoporosis (breast cancer) Prostate cancer Psychosocial problem Respiratory disorder Seizure disorder Thyroid disease Visual disorder Review of Systems Constitutional: see HPI, fever, weakness EENTM: no symptoms reported Respiratory: no symptoms reported Cardiovascular: no symptoms reported Gastrointestinal: loss of appetite, nausea Genitourinary: decreased output, hematuria Musculoskeletal: back pain Skin: no symptoms reported Psychiatric/Neurological: Depressed All Other Systems Reviewed Negative Unless Noted: Yes Physical Exam Physical Exam Vital Signs Vital Sign - Last 12Hours 02/03/17 13:47 Temp 97.1 Pulse 95 Resp 16 B/P (MAP) 144/68 Pulse Ox 96 O2 Delivery Room Air Capillary Refill : Less Than 3 Seconds General Appearance: No Apparent Distress, WD/WN, Chronically ill, Thin Eyes: Bilateral Eye Normal Inspection, Bilateral Eye PERRL HEENT: PERRL/EOMI, Normal ENT Inspection, Pharynx Normal Neck: Full Range of Motion, Normal Inspection, Non Tender, Supple, Carotid Bruit Respiratory: Chest Non Tender, Lungs Clear, No Accessory Muscle Use, No Respiratory Distress, Decreased Breath Sounds Cardiovascular: Regular Rate, Rhythm, No Edema, No Gallop, No JVD, No Murmur, Normal Peripheral Pulses Gastrointestinal: Normal Bowel Sounds, No Organomegaly, No Pulsatile Mass, Non Tender, Soft Back: Normal Inspection, No CVA Tenderness, Decreased Range of Motion, Vertebral Tenderness (compression fx s/p kyphoplasty) Extremity: Normal Capillary Refill, Normal Inspection, Normal Range of Motion, Non Tender, No Calf Tenderness, No Pedal Edema Neurologic/Psychiatric: Alert, Oriented x3, No Motor/Sensory Deficits, Normal Mood/Affect Skin: Normal Color, Warm/Dry Lymphatic: No Adenopathy Results Results/Procedures Lab Laboratory Tests 02/03/17 15:05 02/04/17 06:37 Assessment/Plan Admission Diagnosis UTI with resistant bacteria Assessment and Plan Plan: PT/OT Nicotine patch Recheck labs in am IRU Home meds when completed Diagnosis/Problems Diagnosis/Problems (1) Altered mental status Status: Acute Assessment & Plan: Minimize pain meds OOB w/PT Qualifiers: Qualified Codes: R41.0 - Disorientation, unspecified (2) UTI (urinary tract infection) Status: Acute Assessment & Plan: Broad spectrum with Meropenem due to suspect ESBL since failed Bactrim for 7 days and the severity of the urine specimen lent support for the resistant organism Qualifiers: (3) Compression fracture of body of thoracic vertebra Status: Acute Assessment & Plan: Pain meds PT/OT s/p kyphoplasty POD # 2 by IR (4) S/P kyphoplasty Status: Acute Assessment & Plan: POD # 2 (5) CAD (coronary artery disease) Status: Chronic Qualifiers: Qualified Codes: I25.10 - Atherosclerotic heart disease of [place] coronary artery without angina pectoris (6) Smoker Status: Chronic Assessment & Plan: Nicotine patch Cessation of smoking counseled Clinical Quality Measures DVT/VTE Risk/Contraindication: Risk Factor Score Per Nursin RFS Level Per Nursing on Admit: 4+=Very High YOANNA RAMIREZ DO Feb 04, 2017 10:40
[2017-02-04] MEDS ORDERED: DICLOFENAC 1% GEL 100 GM (VOLTAREN) TUBE TOP PRN (11:15)
--- NOTE | 2017-02-04 11:46 | Physical Therapy Evaluation ---
PT Evaluation-General Medical Diagnosis Admission Date Feb 03, 2017 at 18:02 Medical Diagnosis: UTI/AMS/hyponatremia Onset Date: Feb 03, 2017 Therapy Diagnosis Therapy Diagnosis: generalized weakness/debility Height/Weight Height (Feet): 5 Height (Inches): 8.00 Weight (Pounds): 130 Weight (Ounces): 6.0 Precautions Precautions/Isolations: Standard Precautions Referral Physician: Alexus Reason for Referral: Evaluation/Treatment Medical History Pertinent Medical History: CAD, DM, Dementia, [place], Smoking Additional Medical History s/p kyphoplasty 02/02/17 Current History has been treated for UTI for a few weeks Reviewed History: Yes Social History Home: Single Level Current Living Status: Children patient son and caregivers assist with all patient ADL's and mobility Prior/Core FIM Prior Level of Function Functional [place] Measure 0=Not Assessed/NA 4=Minimal Assistance 1=Total Assistance 5=Supervision or Setup 2=Maximal Assistance 6=Modified [place] 3=Moderate Assistance 7=Complete [place] Bed Mobility: 5 Transfers (B,C,W/C) (FIM): 5 Gait: 5 Wheelchair Mobility: 1 caregiver/family assist patient with w/c mobility when patient requires PT Evaluation-Current Subjective Patient reluctantly agrees to PT. Pain Numeric Pain Scale: 5-Moderate Pain Location: Lower Location Body Site: Back Pain Description: Pressure, Acute Comment: s/p kyphoplasty Objective Patient Orientation: Person, Time, Situation Problem Solving: Poor Attachments: IV ROM/Strength ROM Lower Extremities bilateral LE WNL Strenght Lower Extremities bilateral LE WNL Integumentary/Posture Integumentary refer to nursing notes Bladder Incontinence: Yes Posture trunk flexed posture Neuromuscular (Tone, Coordination, Reflexes) grossly intace Sensory Vision: Wears Glasses Hearing: Functional Sensation Right Lower Extremit: Impaired Sensation Left Lower Extremity: Impaired Transfers Functional [place] Measure 0=Not Assessed/NA 4=Minimal Assistance 1=Total Assistance 5=Supervision or Setup 2=Maximal Assistance 6=Modified [place] 3=Moderate Assistance 7=Complete [place] Transfers (B, C, W/C) (FIM): 5 Scootin Rollin Supine to/from Sit: 5 Sit to/from Stand: 5 Gait Mode of Locomotion: Walk Anticipated Mode of Locomotion: Walk Gait (FIM): 5 Distance (FIM): 3=150 ft Distance: 200' Gait Level of Assist: 5 Gait Persons Needed: 1 Gait Assistive Device: FWW Comments/Gait Description slow, steady gait Balance Sitting Static: Normal Sitting Dynamic: Normal Standing Static: Normal Standing Dynamic: Fair Assessment/Needs 76 y.o. female, will benefit from short term skilled PT to address functional mobility to improve current LOF. Patient is very agitated to participate with therapy and demands return to bed due to fatigue. RN is aware. Rehab Potential: Fair Post Rehab Potential-Barriers: compliance PT Longterm Goals Chief Psychologist Goals PT Longterm Goals Time Frame: Feb 10, 2017 Transfers (B,C,W/C) (FIM): 6 Gait (FIM): 6 Gait distance (FIM): 3=150 ft Gait Level of Assist: 6 Gait Assistive Device: FWW PT Plan Problem List Problem List: Activity Tolerance, Safety, Balance, Gait Treatment/Plan Treatment Plan: Continue Plan of Care Treatment Plan: Bed Mobility, Education, Functional Activity Corrine, Functional Strength, Gait, Safety, Therapeutic Exercise, Transfers Treatment Duration: Feb 10, 2017 Frequency: 6 times per week Estimated Hrs Per Day: .25 hour per day Patient and/or Family Agrees t: Yes Safety Risks/Education Patient Education: Safety Issues Teaching Recipient: Patient Teaching Methods: Discussion Response to Teaching: Reinforcement Needed Discharge Recommendations Therapy D/C Recommendations: Home w/ Family Support Time/GCodes Time In: 1055 Time Out: 1110 Total Billed Treatment Time: 15 Total Billed Treatment 1 visit EVLow 15 min VIVIANE MATT PT Feb 04, 2017 11:46
[2017-02-04] MEDS: LACTOBACILLUS Acidoph/Bulgar (LACTINEX/FLORANEX) TAB PO SCH (11:58)
[2017-02-04 12:00] VITALS: BP 147/65
--- NOTE | 2017-02-04 13:38 | Physician Query Clarification ---
PQ-Conflicting Diagnosis Admission/Discharge Admission Date: Feb 03, 2017 at 18:02 Discharge Date: The medical record reflects the following clinical scenario: History/Risk Factors: Generalized pain after recent kyphoplasty. UTI with resistance to antibiotics Clinical Findings: Patient takes Tramadol on a regular basis (none taken on day of admit). Altered mental status. Hyponatremia Treatment: Fentanyl Injection, Ondansetron injection,Meropenem IV and IV fluids. Question: Do you agree with the impression of Acute Narcotic Withdrawal with delirium per Nikki SILVA. Please document a response below. PHYSICIAN RESPONSE Do you agree w/Consulting Dx?: No In responding to this query, please exercise your independent professional judgment. The purpose of this communication is to more accurately reflect the complexity of your patients condition. The fact that a question is asked does not imply that any particular answer is desired or expected. Thank you for your timely response to this clarification. Requestors name: Ros Zavaleta [facility] Phone # ext [phone] or [phone] THIS PHYSICIAN QUERY FORM IS A PERMANENT PART OF THE MEDICAL RECORD ROS ZAVALETA Feb 04, 2017 13:37 CARMEN RAMIREZ DO Feb 05, 2017 12:33
[2017-02-04 16:00] VITALS: BP 167/70
[2017-02-04] MEDS: inSUlin ASPART (NovoLOG) 1 UNIT/0.01 ML (CHARGE PER UNIT) SC SCH ×2 (16:04→21:07)
[2017-02-04] MEDS: NICOTINE 14 MG (NICODERM) PATCH TD SCH (16:22)
--- NOTE | 2017-02-04 16:46 | Occupational Therapy Eval ---
OT Evaluation-General/PLF Medical Diagnosis Admission Date Feb 03, 2017 at 18:02 Medical Diagnosis: UTI/AMS/hyponatremia Onset Date: Feb 03, 2017 Therapy Diagnosis Therapy Diagnosis: weakness, decr self care, decr funct mobility, decr activ tolerance Height/Weight Height (Feet): 5 Height (Inches): 8.00 Weight (Pounds): 130 Weight (Ounces): 6.0 Precautions Precautions/Isolations: Fall Prevention, Standard Precautions Safety Interventions: Bed Exit Alarm Referral Physician: Alexus Referral Reason: Evaluation/Treatment Medical History Pertinent Medical History: Arthritis, CAD, DM, Dementia, GERD, [place], Smoking Additional Medical History Carotid surgery, cardiac stents. Onset of dementia, TIA. Colitis, chronic diarrhea. osteoporosis. Anxiety Current History Son reported that she fell a couple of weeks ago and had compression fx L1. She had kyphoplasty on 02-02 and then developed pain and ALS. Had been treated for UTI. Reviewed History: Yes Social History Home: Single Level Current Living Status: Children (son and family) ADL-Prior Level of Function ADL PLOF Comments Son reported that, prior to fall, his mother generally didn't need help with self care. She got around without AD but does have a walker to use if needed. Bathroom is fully accessible. Pt has SKIL worker about 6 hours a day from 8 am to 2 pm and is only alone for an hour or two before and after SKIL worker is there. She does not drive but helps to take care of her dogs and occasionally washes dishes. 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 Pain reported 0/10. Appearance Alert. Pt oriented to name and but not date Mental Status/Objective Attachments: IV, Oxygen Current Glasses/Contacts: Yes Hand Dominance: Right Upper Extremity ROM Grossly WFL bilat Upper Extremity Coordination WFL Upper Extremity Sensation WFL Upper Extremity Strength grossly 4/5 bilat ADL-Treatment ADL-Current Son reported pt has had help to get up to BSC to toilet. Walked 200' with PT today, FWW, SBA. He said she hasn't been up much since her fall a couple of weeks ago Functional [place] Measure 0=Not Assessed/NA 4=Minimal Assistance 1=Total Assistance 5=Supervision or Setup 2=Maximal Assistance 6=Modified [place] 3=Moderate Assistance 7=Complete IndependenceIRFPAI Quality Coding Scale 6 Independent with activity with or without an assistive device 5 Patient requires set up or clean up by helper. Patient completes activity by themselves 4 Supervision or touching assist (CGA). [place] provide cues , steadying assist 3 The helper provides less than half the effort to complete the activity 2 The helper provides more than half the effort to complete the activity 1 Dependent. The helper does all the effort to complete an activity 7 Patient refused to complete or attempt activity 9 The patient did not perform the activity before the current illness or injury 88 Not attempted due to Medical conditions or safety concerns Education OT Patient Education: Purpose of tx/functional activities, Rehab process Teaching Recipient: Patient, Family Teaching Methods: Discussion Response to Teaching: Verbalize Understanding OT Detention Goals Detention Goals Time Frame: Feb 18, 2017 Eating (FIM): 6 Grooming(FIM): 6 Bathing(FIM): 5 Upper Body Dressing(FIM): 5 Lower Body Dressing(FIM): 5 Toileting(FIM): 6 Toilet/Commode Transfer(FIM): 6 Shower Transfer(FIM): 5 Additional Goals: 2-Verbalize Understanding, 3-ImproveStrength/Corrine 1=Demonstrate adherence to instructed precautions during ADL tasks. 2=Patient will verbalize/demonstrate understanding of assistive devices/ modifications for ADL. 3=Patient will improve strength/tolerance for activity to enable patient to perform ADL's. OT Education/Plan Problem List/Assessment Assessment: Decreased Activ Tolerance, Decreased UE Strength, Dependent Transfers, Impaired Cognition, Impaired Self-Care Skills Pt would benefit from skilled OT to increase her independence in basic self care to allow her to safely return home to live with family and to decrease caregiver burden Discharge Recommendations Plan/Recommendations: Continue POC Target Placement home Patient/Family Goals be able to take care of herself like she did before Treatment Plan/Plan of Care Treatment,Training & Education: Yes Patient would benefit from OT for education, treatment and training to promote independence in ADL's, mobility, safety and/or upper extremity function for ADL' s. Plan of Care: ADL Retraining, Functional Mobility, UE Funct Exercise/Act Treatment Duration: Feb 18, 2017 Frequency: 5 times per week Estimated Hrs Per Day: .5 hour per day Agreement: Yes Rehab Potential: Fair Time/GCodes Start Time: 16:20 Stop Time: 16:35 Total Time Billed (hr/min): 15 Billed Treatment Time visit, 15 minutes evaluation moderate intensity GAVI VICTORIA OT Feb 04, 2017 16:46
[2017-02-04 20:20] VITALS: BP 165/72
[2017-02-04] MEDS ORDERED: inSUlin DETERMIR 1 UNIT/0.01 ML (LEVEMIR) CHARGE PER UNIT SQ SCH (21:00)
[2017-02-04] MEDS ORDERED: FAMOTIDINE 20 MG (PEPCID) TABLET PO SCH (21:00)
[2017-02-04] MEDS ORDERED: MELATONIN 3 MG TABLET PO SCH (21:00)
[2017-02-04] MEDS ORDERED: ATORVASTATIN 80 MG (LIPITOR) TABLET PO SCH (21:00)
[2017-02-04] MEDS ORDERED: DONEPEZIL 10 MG (ARICEPT) TAB PO SCH (21:00)
[2017-02-05 00:32] VITALS: BP 145/73
[2017-02-05] MEDS: MEROPENEM 500 MG/NS 100 ML IVPB IV SCH ×4 (00:46→06:11)
[2017-02-05] MEDS: inSUlin ASPART (NovoLOG) 1 UNIT/0.01 ML (CHARGE PER UNIT) SC SCH ×2 (05:15→11:32)
[2017-02-05 06:24] LABS: BASOPHILS # (AUTO) 0.1 10^3/uL (0.0-0.1); BASOPHILS % (AUTO) 1 % (0-10); EOSINOPHILS # (AUTO) 0.3 10^3/uL (0.0-0.3); EOSINOPHILS % (AUTO) 2 % (0-10); LYMPHOCYTES % (AUTO) 17 % (12-44); MEAN CORPUSCULAR HEMOGLOBIN 15 PG (25-34); MEAN CORPUSCULAR HGB CONC 28 G/DL (32-36); MEAN CORPUSCULAR VOLUME 54 FL (80-99); MONOCYTES # (AUTO) 1.1 X 10^3 (0.0-1.0); MONOCYTES % (AUTO) 9 % (0-12); NEUTROPHILS # (AUTO) 8.3 X 10^3 (1.8-7.8); NEUTROPHILS % (AUTO) 71 % (42-75); PLATELET COUNT 576 10^3/uL (130-400); RED BLOOD COUNT 6.32 10^6/uL (4.35-5.85); RED CELL DISTRIBUTION WIDTH 26.6 % (10.0-14.5); WHITE BLOOD COUNT 11.8 10^3/uL (4.3-11.0)
[2017-02-05] MEDS ORDERED: PANTOPRAZOLE 40 MG (PROTONIX) TAB PO SCH (07:00)
[2017-02-05 07:47] LABS: ALANINE AMINOTRANSFERASE 12 U/L (0-55); ALBUMIN 3.6 GM/DL (3.2-4.5); ANION GAP 10 MMOL/L (5-14); ASPARTATE AMINO TRANSFERASE 19 U/L (5-34); BILIRUBIN,TOTAL 0.4 MG/DL (0.1-1.0); BLOOD UREA NITROGEN 7 MG/DL (7-18); BUN/CREATININE RATIO 13; CALCIUM 9.3 MG/DL (8.5-10.1); CARBON DIOXIDE 23 MMOL/L (21-32); CHLORIDE 105 MMOL/L (98-107); CREATININE SERUM 0.55 MG/DL (0.60-1.30); GFR ESTIMATED > 60; GLUCOSE 97 MG/DL (70-105); POTASSIUM 3.7 MMOL/L (3.6-5.0); SODIUM 138 MMOL/L (135-145); TOTAL PROTEIN 6.6 GM/DL (6.4-8.2)
[2017-02-05 08:45] VITALS: BP 144/88
[2017-02-05] MEDS ORDERED: NICOTINE PATCH REMOVAL TP SCH (08:59)
[2017-02-05] MEDS ORDERED: ASPIRIN E.C. 81 MG (ECOTRIN) TAB PO SCH (09:00)
[2017-02-05] MEDS ORDERED: MYRBETRIQ 50 MG TAB PO SCH (09:00)
[2017-02-05] MEDS ORDERED: PATIENT MAY USE OWN MED,SINGLE MED PO SCH (09:00)
[2017-02-05] MEDS ORDERED: NON-FORMULARY MEDICATION 1 EA EA (Mirabegron (Myrbetriq) 50 MG) PO SCH (09:00)
[2017-02-05] MEDS ORDERED: CLOPIDOGREL 75 MG (PLAVIX) TABLET PO SCH (09:00)
[2017-02-05] MEDS ORDERED: MESALAMINE PO SCH (09:00)
[2017-02-05] MEDS: LACTOBACILLUS Acidoph/Bulgar (LACTINEX/FLORANEX) TAB PO SCH (09:03)
[2017-02-05] MEDS: NICOTINE 14 MG (NICODERM) PATCH TD SCH (09:03)
--- NOTE | 2017-02-05 09:28 | Physical Therapy Daily Note ---
PT Daily Note-Current Subjective Patient repeats, "I just want to go home." Agrees to PT. Pain Numeric Pain Scale: 5-Moderate Pain Location: Lower Location Body Site: Back Pain Description: Acute Mental Status Patient Orientation: Person, Time, Situation Attachments: IV Transfers Functional [place] Measure 0=Not Assessed/NA 4=Minimal Assistance 1=Total Assistance 5=Supervision or Setup 2=Maximal Assistance 6=Modified [place] 3=Moderate Assistance 7=Complete IndependenceIRFPAI Quality Coding Scale 6 Independent with activity with or without an assistive device 5 Patient requires set up or clean up by helper. Patient completes activity by themselves 4 Supervision or touching assist (CGA). [place] provide cues , steadying assist 3 The helper provides less than half the effort to complete the activity 2 The helper provides more than half the effort to complete the activity 1 Dependent. The helper does all the effort to complete an activity 7 Patient refused to complete or attempt activity 9 The patient did not perform the activity before the current illness or injury 88 Not attempted due to Medical conditions or safety concerns Transfers (B, C, W/C) (FIM): 5 Scootin Rollin Supine to/from Sit: 5 Sit to/from Stand: 5 Gait Training Gait (FIM): 5 Distance (FIM): 3=150 ft Distance: 200' Gait Level of Assist: 5 Gait Assistive Device: FWW improved gait sequence, steady, functional with FWW Assessment Patient declined exercise and is up in chair with needs met. Patient continues to repeat, "I just want to go home." RN is aware. PT Pad Tufter Goals Intermediate Goals PT Pad Tufter Goals Time Frame: Feb 10, 2017 Transfers (B,C,W/C) (FIM): 6 Gait (FIM): 6 Gait distance (FIM): 3=150 ft Gait Level of Assist: 6 Gait Assistive Device: FWW PT Plan Treatment/Plan Treatment Plan: Continue Plan of Care Treatment Plan: Bed Mobility, Education, Functional Activity Corrine, Functional Strength, Gait, Safety, Therapeutic Exercise, Transfers Treatment Duration: Feb 10, 2017 Frequency: 6 times per week Estimated Hrs Per Day: .25 hour per day Patient and/or Family Agrees t: Yes Time/GCodes Time In: 915 Time Out: 925 Total Billed Treatment Time: 10 Total Billed Treatment 1 visit FA 10 min VIVIANE MATT PT Feb 05, 2017 09:28
[2017-02-05] MEDS ORDERED: CIPR500T4 PO (11:25)
[2017-02-05 12:00] VITALS: BP 149/67
[2017-02-05] MEDS: NS IV 1000 ML 1,000 ML IV SCH (12:00)
--- NOTE | 2017-02-05 12:03 | Discharge Summary-Hospitalist ---
Diagnosis/Chief Complaint Date of Admission Feb 03, 2017 at 18:02 Date of Discharge Discharge Date: Feb 05, 2017 Admission Diagnosis UTI with resistant bacteria Discharge Diagnosis See problem list (1) Altered mental status Status: Resolved Assessment & Plan: Minimized pain meds OOB w/PT Resolved at time of DC but baseline dementia is noted (2) UTI (urinary tract infection) Status: Acute Assessment & Plan: Broad spectrum with Meropenem due to suspect ESBL since failed Bactrim for 7 days and the severity of the urine specimen lent support for the resistant organism but on day of DC UCX was NGTD but possibly late onset growth so will place on abx empirically and arrange close f/u PCP. (3) Compression fracture of body of thoracic vertebra Status: Acute Assessment & Plan: Pain meds PT/OT s/p kyphoplasty POD # 3 by IR (4) S/P kyphoplasty Status: Acute Assessment & Plan: POD # 3 at DC (5) CAD (coronary artery disease) Status: Chronic (6) Smoker Status: Chronic Assessment & Plan: Nicotine patch Cessation of smoking counseled Discharge Summary Discharge Physical Examination Allergies: Coded Allergies: No Known Drug Allergies (Unverified , 01/29/17) Vitals & I&Os Vital Signs Date Time Temp Pulse Resp B/P (MAP) Pulse Ox O2 Delivery O2 Flow Rate FiO2 02/05/17 08:45 98.4 94 18 144/88 94 Room Air Hospital Course Notes from 02/06/2017 Chart Review: No fever Vitals stable WBC down to 11.8 Hgb 9.7 CMP normal Glucose much improved Urine culture no growth to date Dr. Borges Review: Dr. Borges discussed whether the issue could be a fistula or another GI related issue. Dr. Borges first requested a CT scan without contrast followed by a CT scan with contrast for comparison. This is okay to do in an out-pt setting. Pharmacy Review: Cipro or Omnicef suggested 500 mg BID for 5 days. 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 I notified pt that the culture could take a week, so a broad spectrum antibiotic was started to cover all bases. I notified pt that all blood work showed that everything was on track but I was surprised that the culture was negative. Pt confirms taking Tramadol that was prescribed by Dr. Lan. I notified pt that I would like them to follow up with Dr. Lan next week and he will be able to review the urine cx with the pt Pt denies having a BM but family member states that they can get OTC home BM meds to resolve constipation. Pt can go home today if they are feeling stable. Physical exam was stable. Pt confirms [facility] pharmacy, an antibiotic will be sent in. If pt has more concerns she was notified to return to the hospital. Plan: Ciprofloxacin 500 BID for 5 days Follow up with Dr. Lan next week Scribed by Ned Wray under the direct supervision of Dr. Ramirez Hospital course: Patient had a standard hospital course due to the color of the urine sample it was assumed that it would have been ESBL infection requiring meropenem so that medication was initiated from admission from the ER but final urine culture was no growth to date which required a conversation with urology who thought may be a fistula had created the discoloration but still was questionable considering the urine culture was no growth to date after 7 days of Bactrim double strength twice daily. Overall she improved her labs resolved any alert values and she was ready to go home although smoking cessation was counseled she simply told me she wanted to go home and smoke so she was discharged with close follow-up with Dr. Lan and I did speak with Dr. Lan's nurse updated her on the plan she'll be placed on Cipro twice daily until urine culture final is resulted and CT scan is recommended to fully evaluate the possibility of a fistula and that will be ordered at Dr. Lan' s discretion. Labs (last 24 hrs) Laboratory Tests 02/04/17 15:38: Glucometer 141H 02/04/17 20:33: Glucometer 208H 02/05/17 05:03: Glucometer 107 02/05/17 06:13: White Blood Count 11.8H, Red Blood Count 6.32H, Hemoglobin 9.7L, Hematocrit 34L , Mean Corpuscular Volume 54L, Mean Corpuscular Hemoglobin 15L, Mean Corpuscular Hemoglobin Concent 28L, Red Cell Distribution Width 26.6H, Platelet Count 576H, Mean Platelet Volume , Neutrophils (%) (Auto) 71, Lymphocytes (%) ( Auto) 17, Monocytes (%) (Auto) 9, Eosinophils (%) (Auto) 2, Basophils (%) (Auto ) 1, Neutrophils # (Auto) 8.3H, Lymphocytes # (Auto) 2.0, Monocytes # (Auto) 1.1H, Eosinophils # (Auto) 0.3, Basophils # (Auto) 0.1, Sodium Level 138, Potassium Level 3.7, Chloride Level 105, Carbon Dioxide Level 23, Anion Gap 10, Blood Urea Nitrogen 7, Creatinine 0.55L, Estimat Glomerular Filtration Rate > 60 , BUN/Creatinine Ratio 13, Glucose Level 97, Calcium Level 9.3, Total Bilirubin 0.4, Aspartate Amino Transf (AST/SGOT) 19, Alanine Aminotransferase (ALT/SGPT) 12, Alkaline Phosphatase 111, Total Protein 6.6, Albumin 3.6 02/05/17 10:52: Glucometer 128H Microbiology 02/03/17 Urine Culture - Preliminary, Resulted NO GROWTH Pending Labs Laboratory Tests 02/05/17 05:03: Glucometer 107 02/05/17 06:13: White Blood Count 11.8, Red Blood Count 6.32, Hemoglobin 9.7, Hematocrit 34, Mean Corpuscular Volume 54, Mean Corpuscular Hemoglobin 15, Mean Corpuscular Hemoglobin Concent 28, Red Cell Distribution Width 26.6, Platelet Count 576, Mean Platelet Volume , Neutrophils (%) (Auto) 71, Lymphocytes (%) (Auto) 17, Monocytes (%) (Auto) 9, Eosinophils (%) (Auto) 2, Basophils (%) (Auto) 1, Neutrophils # (Auto) 8.3, Lymphocytes # (Auto) 2.0, Monocytes # (Auto) 1.1, Eosinophils # (Auto) 0.3, Basophils # (Auto) 0.1, Sodium Level 138, Potassium Level 3.7, Chloride Level 105, Carbon Dioxide Level 23, Anion Gap 10, Blood Urea Nitrogen 7, Creatinine 0.55, Estimat Glomerular Filtration Rate > 60, BUN/ Creatinine Ratio 13, Glucose Level 97, Calcium Level 9.3, Total Bilirubin 0.4, Aspartate Amino Transf (AST/SGOT) 19, Alanine Aminotransferase (ALT/SGPT) 12, Alkaline Phosphatase 111, Total Protein 6.6, Albumin 3.6 02/05/17 10:52: Glucometer 128 Discharge Home Medications: Active Scripts Active Ciprofloxacin HCl 500 Mg Tablet 500 Mg PO BID Reported Humalog (Insulin Lispro) 100 Unit/1 Ml Vial SC PC BELOW 100 = O UNITS 100-130 = 2 UNITS 131-160 = 3 UNITS 161-190 = 4 UNITS 191 AND ABOVE = 5 UNITS Voltaren (Diclofenac Sodium) 100 Gm Gel..gram. TOP BID PRN Donepezil HCl 10 Mg Tablet 10 Mg PO HS Apriso (Mesalamine) 0.375 Gm Cap.er.24h 2 Cap PO DAILY LAST DOSE TO BE TAKEN 02-05-17 Atorvastatin Calcium 80 Mg Tablet 80 Mg PO DAILY Vitamin D2 (Ergocalciferol (Vitamin D2)) 50,000 Unit Capsule 50,000 Units PO MO Venlafaxine HCl ER (Venlafaxine HCl) 150 Mg Cap.er.24h 150 Mg PO HS Tramadol HCl 50 Mg Tablet 50 Mg PO Q6H PRN Melatonin 10 Mg Tablet.er 10 Mg PO HS Probiotic (L.acidoph & Paracasei,B.lactis) 1 Each Capsule 1 Cap PO DAILY Cyanocobalamin Injection (Cyanocobalamin) 1,000 Mcg/Ml Inj 1,000 Mcg IJ OF MONTH Nexium (Esomeprazole Magnesium) 40 Mg Cap 40 Mg PO DAILY Aspir 81 (Aspirin) 81 Mg Tablet.dr 81 Mg PO DAILY Plavix (Clopidogrel Bisulfate) 75 Mg Tablet 75 Mg PO DAILY Pioglitazone HCl 15 Mg Tablet 15 Mg PO DAILY Myrbetriq (Mirabegron) 50 Mg Tab.er.24h 50 Mg PO DAILY Lantus (Insulin Glargine,Hum.rec.anlog) 100 Unit/1 Ml Vial 23 Unit SQ HS Invokana (Canagliflozin) 100 Mg Tablet 100 Mg PO DAILY Instructions to patient/family Please see electronic discharge instructions given to patient. Clinical Quality Measures DVT/VTE Risk/Contraindication: Risk Factor Score Per Nursin RFS Level Per Nursing on Admit: 4+=Very High Problem Qualifiers (1) Altered mental status: Altered mental status type: delirium Qualified Codes: R41.0 - Disorientation , unspecified (2) UTI (urinary tract infection): Indwelling urinary catheter type: unspecified Encounter type: initial encounter (3) CAD (coronary artery disease): Coronary Disease-Associated Artery/Lesion type: [place] artery [place] vs. transplanted heart: [place] heart Associated angina: without angina Qualified Codes: I25.10 - Atherosclerotic heart disease of [place] coronary artery without angina pectoris CARMEN RAMIREZ DO Feb 05, 2017 12:03
[2017-02-05 14:20] VITALS: BP 149/67
[2017-02-05] MEDS ORDERED: VENlafaxine XR 75 MG (EFFEXOR XR) CAP PO SCH (21:00)
[2017-02-05] MEDS ORDERED: FAMOTIDINE 20 MG (PEPCID) TABLET PO SCH (21:00)
[2017-02-07] MEDS ORDERED: INFLUENZA TRIvalent 2017-2018 0.5 ML/45 MCG SYR IM ONE (07:00)
[2017-02-08] MEDS ORDERED: VITAMIN D2 50,000 UNITS (1.25 MG) CAP PO SCH (07:00)
== END 2017-02-05 14:30 | disposition home or self-care (01) | DRG 690 ==
LOC: EDUNIT# 13:41 → ER 13:43 → 4TH 18:02
PROVIDERS: ADMIT Internal Medicine; ATTEND Internal Medicine
DX: N39.0 Urinary tract infection, site not specified (principal); Z16.30 Resistance to unspecified antimicrobial drugs; E87.1 Hypo-osmolality and hyponatremia; R41.0 Disorientation, unspecified; R11.0 Nausea; F32.9 Major depressive disorder, single episode, unspecified; F41.9 Anxiety disorder, unspecified; F17.210 Nicotine dependence, cigarettes, uncomplicated; I25.10 Atherosclerotic heart disease of native coronary artery without angina pectoris; I25.2 Old myocardial infarction; E78.00 Pure hypercholesterolemia, unspecified; F03.90 Unspecified dementia, unspecified severity, without behavioral disturbance, psychotic disturbance, mood disturbance, and anxiety; K21.9 Gastro-esophageal reflux disease without esophagitis; M81.0 Age-related osteoporosis without current pathological fracture; M19.91 Primary osteoarthritis, unspecified site; E11.9 Type 2 diabetes mellitus without complications; Z95.5 Presence of coronary angioplasty implant and graft; Z86.73 Personal history of transient ischemic attack (TIA), and cerebral infarction without residual deficits; Z79.4 Long term (current) use of insulin; Z79.891 Long term (current) use of opiate analgesic
CPT/HCPCS: 36415; 70450; 71020; 72100; 80053; 81000; 82962; 85025; 87088; 96361; 96365; 96375; 96376

== ENCOUNTER → 2017-02-16 | Outpatient (CLI) | payer MEDICARE, MEDICAID ==
[~2017-02-16] MED LIST changes: +ATOR80TA76 PO; +CIPR500T4 PO; +DICL100G18 TOP; +DONE10TA41 PO; +ERGO50006 PO; +IOHEXOL 350 MG/ML 100 ML (OMNIPAQUE 350) VIAL IV ONE; +MESA0.37 PO; +NS 100 ML (IVPB) BAG IV ONE; +ONDA4TAB11 PO; +VENL150C98 PO
--- NOTE | 2017-02-16 10:33 | Diagnostic Imaging Report ---
PROCEDURE: CT abdomen and pelvis with contrast. TECHNIQUE: Multiple contiguous axial images were obtained through the abdomen and pelvis after administration of intravenous contrast. INDICATION: Lower abdominal pain. FINDINGS: 100 mL of Omnipaque 350 is administered intravenously. The lung bases appear clear. The liver, the spleen, the adrenals, and the pancreas appear unremarkable. Dependent densities near the gallbladder neck are probably related to small calcified stones. No CT evidence of cholecystitis. The kidneys have symmetric enhancement and contrast excretion. There is no hydronephrosis. Prominent atherosclerotic plaque in the abdominal aorta is seen which is normal in caliber. No para-aortic significantly enlarged lymph nodes are noted. The urinary bladder is moderately dilated with multiple urinary bladder diverticula seen. There is minimal urinary bladder wall thickening which could relate to cystitis. No bladder stones or focal masses identified. There is no bowel obstruction. A few colonic diverticula seen with no evidence of diverticulitis. No significant free fluid or fluid collection in the abdomen or pelvis is seen. There is right hip replacement. There is mild right scoliotic curvature noted. There is post-kyphoplasty changes seen in the L1 vertebra. IMPRESSION: There is moderate dilatation of the urinary bladder with multiple bladder diverticula seen. The bladder also has mild wall thickening which could relate to cystitis. Dictated by: Dictated on workstation # [id number]
== END ==
LOC: RAD 07:51
PROVIDERS: ATTEND Internal Medicine
DX: N32.3 Diverticulum of bladder (principal); N32.89 Other specified disorders of bladder
CPT/HCPCS: 74177

== ENCOUNTER → 2017-02-24 | Outpatient (CLI) | payer MEDICARE, MEDICAID ==
[2017-02-24 12:08] LABS: ANION GAP 15 MMOL/L (5-14); BLOOD UREA NITROGEN 7 MG/DL (7-18); BUN/CREATININE RATIO 11; CALCIUM 9.7 MG/DL (8.5-10.1); CARBON DIOXIDE 19 MMOL/L (21-32); CHLORIDE 102 MMOL/L (98-107); CREATININE SERUM 0.64 MG/DL (0.60-1.30); GFR ESTIMATED > 60; GLUCOSE 158 MG/DL (70-105); POTASSIUM 3.7 MMOL/L (3.6-5.0); SODIUM 136 MMOL/L (135-145)
--- NOTE | 2017-02-24 15:32 | Diagnostic Imaging Report ---
EXAMINATION: CT angiogram of the neck. TECHNIQUE: Coronal and sagittal reconstruction MIP technique images are performed. INDICATION: Carotid stenosis. 75 mL of Omnipaque 350 is administered intravenously. FINDINGS: The aortic arch demonstrates atherosclerotic changes with no high-grade stenosis or occlusion. There is a common origin of the right brachiocephalic artery and the left common carotid artery, normal variant. The right brachiocephalic artery is patent. The right subclavian artery is patent. The right common carotid artery is patent. There is suggestion of prior endarterectomy at the proximal aspect of the internal carotid artery. Distal to the endarterectomy changes there is an area of approximately 70% stenosis in the right internal carotid artery which appears to be related to soft plaque. This appears to be slightly more prominent compared to the previous exam. There is a proximal left subclavian artery stenosis of about 70-80% similar to 12/30/2015 exam. The left common carotid artery is patent with no significant stenosis. There is atherosclerotic plaque at the carotid bulb with no evidence of high-grade stenosis. The left vertebral artery demonstrates moderate stenosis at the proximal aspect of the cervical segment as it enters the foramina transversarium on the left and mild to moderate foci of narrowing in this vessel is also seen in the mid cervical segment. The right vertebral artery is of slightly larger caliber. Its origin demonstrates atherosclerotic calcified plaque with uncertain underlying degree of stenosis due to the blooming artifact from the calcifications and relatively small size of the vessel preventing accurate assessment of degree of stenosis. Prominent intracranial calcifications in the internal carotid arteries are partially visualized on this exam with no occlusion or high-grade stenosis evident in the central vessels. 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 The soft tissues in the neck demonstrate a thyroid nodule measuring 1 cm in the left thyroid lobe which appears similar to 12/30/2015 exam. The parotid and submandibular glands appear symmetric. The paranasal sinuses appear grossly unremarkable. There is prominent degenerative changes in the mid cervical spine. IMPRESSION: 1. There is estimated 70% stenosis in the right internal carotid artery just distal to surgical changes from prior endarterectomy. This appears to be slightly worse compared to 12/30/2015 exam. 2. Stable findings of 70% stenosis in the proximal left subclavian artery, and mild to moderate multifocal narrowing around the mid left vertebral artery. Dictated by: Dictated on workstation # [id number]
== END ==
LOC: RAD 11:30
PROVIDERS: ATTEND Nurse Practitioner Family
DX: I65.21 Occlusion and stenosis of right carotid artery (principal); I65.02 Occlusion and stenosis of left vertebral artery; I35.8 Other nonrheumatic aortic valve disorders; I34.0 Nonrheumatic mitral (valve) insufficiency; I10 Essential (primary) hypertension; E78.4 Other hyperlipidemia; I25.10 Atherosclerotic heart disease of native coronary artery without angina pectoris
CPT/HCPCS: 36415; 70498; 80048; 93306

== ENCOUNTER 2017-03-02 08:19 | Emergency (ER) | payer MEDICARE, MEDICAID ==
[~2017-03-02] VITALS: Ht 154.9 cm; Wt 63.5 kg
[~2017-03-02 08:19] MED LIST changes: -CATHETER FLUSH 10 ML SYR IV PRN; -CLOP75TA28; -ESOM40CA52; -GLUC1KIT; -MEMA1CAP PO; -NITR-65 PO; -ONDA4TAB11
--- NOTE | 2017-03-02 08:50 | ED Fall/Injury ---
General Chief Complaint: Trauma-Non Activation Stated Complaint: FALL Nursing Triage Note: see trauma note Source: patient Exam Limitations: no limitations History of Present Illness Time seen by provider: 08:29 Initial Comments Patient presents the ER by private conveyance with a chief complaint that she had a fall while going to a nuclear medicine appointment today to have her right carotid study done. She has a history of 80% blockage and is trying to find out if this would be amenable to a carotid endarterectomy. Her riding teacher is Dr. Raphael. She says she was just walking down the ruiz and fell but she's not sure why. She had a fall approximately one week ago. She is on blood thinners. She says she did not pass out but did strike her head on the bridge of her nose she has a laceration which is hemostatic. She has a large hematoma over her glabella which is from the fall last week. She denies any amnesia, headache, neck pain, hand or wrist pain or anything else hurting other than her nose. She denies nausea or vomiting, fever, chills, dysuria, discharge , appetite changes, weight changes , chest pain, shortness of breath. Location Injury Occurred: [facility] Allergies and Home Medications Allergies Coded Allergies: No Known Drug Allergies (Unverified , 01/29/17) Home Medications Aspirin 81 Mg Tablet.dr, 81 MG PO DAILY, (Reported) Atorvastatin Calcium 80 Mg Tablet, 80 MG PO DAILY, (Reported) Canagliflozin 100 Mg Tablet, 100 MG PO DAILY, (Reported) Ciprofloxacin HCl 500 Mg Tablet, 500 MG PO BID, #10 Prescribed by: CARMEN RAMIREZ on 02/05/17 1125 Clopidogrel Bisulfate 75 Mg Tablet, 75 MG PO DAILY, (Reported) Cyanocobalamin 1,000 Mcg/Ml Inj, 1,000 MCG IJ OF MONTH, (Reported) Diclofenac Sodium 100 Gm Gel..gram., TOP BID PRN for JOINT PAIN, (Reported) Donepezil HCl 10 Mg Tablet, 10 MG PO HS, (Reported) Ergocalciferol (Vitamin D2) 50,000 Unit Capsule, 50,000 UNITS PO Mo, (Reported) Esomeprazole Magnesium 40 Mg Cap, 40 MG PO DAILY, (Reported) Insulin Glargine,Hum.rec.anlog 100 Unit/1 Ml Vial, 23 UNIT SQ HS, (Reported) Insulin Lispro 100 Unit/1 Ml Vial, SC PC, (Reported) BELOW 100 = O UNITS 100-130 = 2 UNITS 131-160 = 3 UNITS 161-190 = 4 UNITS 191 AND ABOVE = 5 UNITS L.acidoph & Paracasei,B.lactis 1 Each Capsule, 1 CAP PO DAILY, (Reported) Melatonin 10 Mg Tablet.er, 10 MG PO HS, (Reported) Mesalamine 0.375 Gm Cap.er.24h, 2 CAP PO DAILY, (Reported) LAST DOSE TO BE TAKEN 02-05-17 Mirabegron 50 Mg Tab.er.24h, 50 MG PO DAILY, (Reported) Pioglitazone HCl 15 Mg Tablet, 15 MG PO DAILY, (Reported) Tramadol HCl 50 Mg Tablet, 50 MG PO Q6H PRN for PAIN-MODERATE, (Reported) Venlafaxine HCl 150 Mg Cap.er.24h, 150 MG PO HS, (Reported) Constitutional: No chills, No diaphoresis, dizziness, No fever, No malaise Eyes: Denies Blindness, Denies Blurred Vision, Denies Drainage, Denies Pain Ears, Nose, Mouth, Throat: denies ear pain, denies ear discharge Respiratory: No cough, No short of breath Cardiovascular: No chest pain, No palpitations Gastrointestinal: No abdominal pain, No constipation, No diarrhea, No nausea, No vomiting Genitourinary: No dysuria, No frequency : No Musculoskeletal: No back pain, No joint pain Skin: No rash, other (small laceration over bridge of nose) Psychiatric/Neurological: Denies Headache, Denies Numbness, Denies Paresthesia , Denies Pre-Existing Deficit, Denies Seizure, Denies Weakness Past Qnpddfr-Wgjgpt-Qrzeso Hx Patient Social History Alcohol Use: Denies Use Recreational Drug Use: No Smoking Status: Current Everyday Smoker Type Used: Cigarettes 2nd Hand Smoke Exposure: No Recent Foreign Travel: No Contact w/Someone Who Travel: No Recent Infectious Disease Expo: No Recent Hopitalizations: No Immunizations Up To Date Tetanus Booster (TDap): Unknown PED Vaccines UTD: No Date of Pneumonia Vaccine: Jan 08, 2014 Date of Influenza Vaccine: Feb 08, 2016 Seasonal Allergies Seasonal Allergies: No Surgeries History of Surgeries: Yes (CAROTID, STENTS, KYPHOPLASTY, L HIP, R ANKLE) Surgeries: Appendectomy, Coronary Stent, Eye Surgery, 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, Joint Replacement, Orthopedic Respiratory History of Respiratory Disorde: No Cardiovascular History of Cardiac Disorders: Yes (STENTS 2002) Cardiac Disorders: Coronary Artery Disease, Heart Attack, High Cholesterol Neurological History of Neurological Disord: Yes (ONSET OF DEMENTIA) Neurological Disorders: Dementia, TIA 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 System Hx 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 Disorders: No Sexually Transmitted Disease: No HIV/AIDS: No Female 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 Disorders: Denies 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 Gastrointestinal History of Gastrointestinal Di: Yes Gastrointestinal Disorders: Colitis, Gastroesophageal Reflux, Chronic Diarrhea Musculoskeletal History of Musculoskeletal Dis: Yes (COMPR FX L1) Musculoskeletal Disorders: Osteoporosis, Arthritis, Chronic Back Pain Endocrine History of Endocrine Disorders: Yes Endocrine Disorders: Diabetes, 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 Hearing Impairment: Denies Cancer History of Cancer: No Psychosocial History of Psychiatric Problem: Yes Behavioral Health Disorders: Anxiety Integumentary History of Skin or Integumenta: No Skin/Integumentary Disorders: Recent Skin Changes Blood Transfusions History of Blood Disorders: No Adverse Reaction to a Blood Tr: No (N/A) Family Medical History Significant Family History: No Pertinent Family Hx Family Medial History: Alzheimer's disease (dad) Arthritis (mom) Asthma (sister) Completed stroke (mom) Diabetes mellitus (mom) Fibrocystic disease of breast (sister) Hypercholesterolemia (mom) Hypertension (mom) Myocardial infarction (mom) Neoplasm Parkinson's disease Severe allergy (sister) No Family History of: AIDS Abdominal aortic aneurysm Delbert's disease Alcoholism Aphasia Cancer of mouth Cardiovascular disease Cataracts Colon cancer Congenital disease Congenital heart disease Coronary thrombosis Cystic fibrosis Deafness or hearing loss Dementia Drug abuse Dysphasia Gastroenteritis Glaucoma Headache disorder Infertility Kidney disease Not obtainable due to adoption Osteoporosis (breast cancer) Prostate cancer Psychosocial problem Respiratory disorder Seizure disorder Thyroid disease Visual disorder Physical Exam Vital Signs Vital Sign - Last 12Hours 03/02/17 08:23 Temp 96.4 Pulse 91 Resp 18 B/P (MAP) 101/54 Pulse Ox 98 O2 Delivery Room Air Capillary Refill : Less Than 3 Seconds General Appearance: WD/WN, no apparent distress HEENT: PERRL/EOMI, pharynx normal Neck: non-tender, full range of motion, supple, normal inspection Cardiovascular: normal peripheral pulses, regular rate, rhythm, no edema Respiratory: chest non-tender, lungs clear, normal breath sounds Gastrointestinal: normal bowel sounds, non tender, soft Extremities: normal range of motion, non-tender, normal inspection, no pedal edema, no calf tenderness, normal capillary refill 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, no motor/sensory deficits, alert, normal mood/affect, oriented x 3 Skin: other (hematoma over the glabella and small stellate laceration over bridge of nose greatest diameter about 1.0 cm.) [place] Coma Score Best Eye Response: (4) Open Spontaneously Best Verbal Response: (5) Oriented Best Motor Response: (6) Obeys Commands [place] Total: 15 Progress/Results/Core Measures Results/Orders Lab Results Laboratory Tests Test 03/02/17 08:45 03/02/17 10:40 Range/Units White Blood Count 10.5 4.3-11.0 10^3/uL Red Blood Count 6.93 H 4.35-5.85 10^6/uL Hemoglobin 10.7 L 11.5-16.0 G/DL Hematocrit 38 35-52 % Mean Corpuscular Volume 55 L 80-99 FL Mean Corpuscular Hemoglobin 15 L 25-34 PG Mean Corpuscular Hemoglobin Concent 28 L 32-36 G/DL Red Cell Distribution Width 27.4 H 10.0-14.5 % Platelet Count 425 H 130-400 10^3/uL Mean Platelet Volume 7.4-10.4 FL Neutrophils (%) (Auto) 62 42-75 % Lymphocytes (%) (Auto) 26 12-44 % Monocytes (%) (Auto) 8 0-12 % Eosinophils (%) (Auto) 2 0-10 % Basophils (%) (Auto) 2 0-10 % Neutrophils # (Auto) 6.5 1.8-7.8 X 10^3 Lymphocytes # (Auto) 2.7 1.0-4.0 X 10^3 Monocytes # (Auto) 0.9 0.0-1.0 X 10^3 Eosinophils # (Auto) 0.2 0.0-0.3 10^3/uL Basophils # (Auto) 0.2 H 0.0-0.1 10^3/uL Neutrophils % (Manual) % Band Neutrophils % Hypochromasia MODERATE Poikilocytosis MARKED Anisocytosis MARKED Microcytosis MARKED Target Cells MARKED Elliptocytes MODERATE Rouleau SLIGHT Schistocytes Sodium Level 139 135-145 MMOL/L Potassium Level 5.3 H 3.6-5.0 MMOL/L Chloride Level 105 98-107 MMOL/L Carbon Dioxide Level 22 21-32 MMOL/L Anion Gap 12 5-14 MMOL/L Blood Urea Nitrogen 7 7-18 MG/DL Creatinine 0.66 0.60-1.30 MG/DL Estimat Glomerular Filtration Rate > 60 BUN/Creatinine Ratio 11 Glucose Level 70 70-105 MG/DL Calcium Level 9.4 8.5-10.1 MG/DL Magnesium Level 1.7 L 1.8-2.4 MG/DL Total Bilirubin 0.7 0.1-1.0 MG/DL Aspartate Amino Transf (AST/SGOT) 29 5-34 U/L Alanine Aminotransferase (ALT/SGPT) 13 0-55 U/L Alkaline Phosphatase 90 40-136 U/L Total Protein 7.4 6.4-8.2 GM/DL Albumin 3.8 3.2-4.5 GM/DL Smear Scan YES Urine Color YELLOW Urine Clarity CLEAR Urine pH 7 5-9 Urine Specific [place] 1.010 L 1.016-1.022 Urine Protein NEGATIVE NEGATIVE Urine Glucose (UA) 4+ H NEGATIVE Urine Ketones NEGATIVE NEGATIVE Urine Nitrite NEGATIVE NEGATIVE Urine Bilirubin NEGATIVE NEGATIVE Urine Urobilinogen NORMAL NORMAL MG/DL Urine Leukocyte Esterase 3+ H NEGATIVE Urine RBC (Auto) NEGATIVE NEGATIVE Urine RBC 0-2 /HPF Urine WBC 10-25 H /HPF Urine Squamous Epithelial Cells >50 H /HPF Urine Crystals NONE /LPF Urine Bacteria TRACE /HPF Urine Casts NONE /LPF Urine Mucus NEGATIVE /LPF Urine Culture Indicated NO My Orders Orders - LOYDA MCKEON Ct Head/Face/Cervical Wo (03/02/17 08:32) Saline Lock/Iv-Start (03/02/17 08:32) Cbc With Automated Diff (03/02/17 08:32) Comprehensive Metabolic Panel (03/02/17 08:32) Magnesium (03/02/17 08:32) Ua Culture If Indicated (03/02/17 08:32) Orthostatic Vital Signs (03/02/17 08:32) Ns Iv 1000 Ml (Sodium Chloride 0.9%) (03/02/17 09:12) Ns Iv 1000 Ml (Sodium Chloride 0.9%) (03/02/17 09:05) Manual Differential (03/02/17 08:45) Magnesium Oxide Tablet (Mag Ox Tablet) (03/02/17 10:30) Medications Given in ED Current Medications Medications Dose Ordered Sig/Komal Route Start Time Stop Time Status Last Admin Dose Admin Magnesium Oxide 400 mg ONCE ONCE PO 03/02/17 10:30 03/02/17 10:31 DC 03/02/17 10:33 400 MG Sodium Chloride 1,000 ml @ 0 mls/hr Q0M ONCE IV 03/02/17 09:12 03/02/17 09:13 DC 03/02/17 09:33 1,000 MLS/HR Vital Signs/I&O Vital Sign - Last 12Hours 03/02/17 03/02/17 08:23 08:45 Temp 96.4 Pulse 91 92 86 73 Resp 18 B/P (MAP) 101/54 Pulse Ox 98 O2 Delivery Room Air Blood Pressure Mean: 70 Progress Note : Time: 08:50 Progress Note She is on aspirin and Plavix so we'll go ahead and scan her head. Since she has a laceration over the nasal bone we will get a CT of the face and CT neck for occult fracture. Orthostatic vitals are positive for a systolic drop of 20 mmHg from sitting to lying. We'll give her IV fluids and reassess. Checking her blood pressure on her right arm demonstrated a blood pressure of 180 systolic versus her left arm being in the 90s to 110 range. Given her history of carotid stenosis this makes me concern for other arterial stenoses in her brachial distribution. She is working with Dr. Saha and a surgeon in [place], [place] to get this treated appropriately. Diagnostic Imaging Diagonstic Imaging: CT Plain Films/CT/US/NM/MRI: c-spine, head, other (face) Comments VIA [facility]. [place], [place] NAME: EDEL [facility] REC#: [id number] PT STATUS: REG ER : 1940 PHYSICIAN: LOYDA MCKEON MD ADMIT DATE: 03/02/17/ER Draft Date of Exam:03/02/17 CT HEAD/FACE/CERVICAL WO PROCEDURE: CT head, face, and cervical spine without contrast. TECHNIQUE: Multiple contiguous axial images were obtained through the head, neck, and facial bones without the use of intravenous contrast. Sagittal and coronal reformations through the cervical spine and facial bones were also performed. INDICATION: Fall. FINDINGS: CT HEAD: There is a small scalp hematoma anteriorly in the frontal region. There is no intracranial hemorrhage. There is evidence of old infarcts in the left frontal and right parietal lobes. Background hypodensities in the periventricular and deep white matter are compatible with chronic microvascular ischemic changes. There is also an old lacunar infarct in the right caudate head. No hydrocephalus. No extra-axial fluid collection is seen. The calvarium appears grossly unremarkable. CT FACE: The paranasal sinuses, zygomatic arches, orbital margins, and sinus aldrich appears unremarkable. The pterygoid bones are intact. The nasal bone appears intact. The globes and retrobulbar contents of the orbits appear symmetric. The mastoid air cells and middle ear cavities appear clear. CT CERVICAL SPINE: The alignment of the posterior spinal line is satisfactory. There is slight rotation of C1 over C2 without lateral subluxation of the lateral masses of C1 and C2. This is probably positional. No widening of the predental space is seen. The vertebral body heights are preserved. There is moderate disc height loss at the C5-C6 and C6-C7 levels with posterior osteophytes at these levels. The facet joints demonstrate normal alignment with prominent degenerative changes, particularly along the upper facet joints in the cervical spine on the left side. Surgical clips in the right side of the neck are noted. The paraspinal soft tissues demonstrate no hematoma. IMPRESSION: CT HEAD: Small frontal scalp hematoma. No intracranial hemorrhage. CT FACE: No fracture is seen. CT CERVICAL SPINE: Slight rotation of C1 over C2 is likely positional. Prominent degenerative changes. No fracture is seen. Dictated on workstation # [id number] Dict: 03/02/17 0927 Trans: 03/02/17 0954 [id number] Interpreted by: PRAKASH MOJICA MD Electronically signed by: Reviewed: Reviewed by Me Departure Impression Impression: Primary Impression: Fall from standing Qualified Codes: W19.XXXA - Unspecified fall, initial encounter Additional Impressions: Hematoma Laceration Orthostatic hypotension History of carotid artery disease UTI (urinary tract infection) Qualified Codes: N30.00 - Acute cystitis without hematuria Disposition: HOME, SELF-CARE Condition: Stable Departure-Patient Inst. Decision time for Depature: 10:59 Referrals: JOSEY RIDER DO (PCP/Family) Primary Care Physician Patient Instructions: Orthostatic Hypotension (DC), Preventing Falls in the Older Adult, Urinary Tract Infection, Adult (DC) Add. Discharge Instructions: Please drink plenty of fluids. Avoid caffeine. Your magnesium was a little low so either take some magnesium tablets for the next week or try and eat foods that are rich in magnesium such as dark green leafy vegetables. Follow up with your primary care physician in the next 1-2 weeks. Continue your workup for your carotid artery disease. Take the antibiotics 1 tablet by mouth twice a day for the next 5 days with food. You may also pick up and delivery driver and take one capsule of probiotics twice a day while on antibiotics to try and reduce the side effects of diarrhea and GI upset. All discharge instructions reviewed with patient and/or family. Voiced understanding. Scripts Nitrofurantoin Monohyd/M-Cryst (Macrobid 100 mg Capsule) 100 Mg Capsule 1 TAB PO BID for 5 Days, #10 CAP 0 Refills Prov: LOYDA MCKEON 03/02/17 Copy Copies To 1: JOAQUÍN SAHA MD [facility] Copies To 2: JOSEY RIDER DO LOYDA MCKEON Mar 02, 2017 08:50
[2017-03-02 08:59] LABS: BASOPHILS # (AUTO) 0.2 10^3/uL (0.0-0.1); BASOPHILS % (AUTO) 2 % (0-10); EOSINOPHILS # (AUTO) 0.2 10^3/uL (0.0-0.3); EOSINOPHILS % (AUTO) 2 % (0-10); LYMPHOCYTES # (AUTO) 2.7 X 10^3 (1.0-4.0); LYMPHOCYTES % (AUTO) 26 % (12-44); MEAN CORPUSCULAR HEMOGLOBIN 15 PG (25-34); MEAN CORPUSCULAR HGB CONC 28 G/DL (32-36); MEAN CORPUSCULAR VOLUME 55 FL (80-99); MONOCYTES # (AUTO) 0.9 X 10^3 (0.0-1.0); MONOCYTES % (AUTO) 8 % (0-12); NEUTROPHILS # (AUTO) 6.5 X 10^3 (1.8-7.8); NEUTROPHILS % (AUTO) 62 % (42-75); PLATELET COUNT 425 10^3/uL (130-400); RED BLOOD COUNT 6.93 10^6/uL (4.35-5.85); RED CELL DISTRIBUTION WIDTH 27.4 % (10.0-14.5); WHITE BLOOD COUNT 10.5 10^3/uL (4.3-11.0)
[2017-03-02] MEDS ORDERED: NS IV 1000 ML 1,000 ML ONE (09:05)
[2017-03-02] MEDS ORDERED: NS IV 1000 ML 1,000 ML IV ONE (09:12)
[2017-03-02 09:19] LABS: ALANINE AMINOTRANSFERASE 13 U/L (0-55); ALBUMIN 3.8 GM/DL (3.2-4.5); ANION GAP 12 MMOL/L (5-14); ASPARTATE AMINO TRANSFERASE 29 U/L (5-34); BILIRUBIN,TOTAL 0.7 MG/DL (0.1-1.0); BLOOD UREA NITROGEN 7 MG/DL (7-18); BUN/CREATININE RATIO 11; CALCIUM 9.4 MG/DL (8.5-10.1); CARBON DIOXIDE 22 MMOL/L (21-32); CHLORIDE 105 MMOL/L (98-107); CREATININE SERUM 0.66 MG/DL (0.60-1.30); GFR ESTIMATED > 60; GLUCOSE 70 MG/DL (70-105); MAGNESIUM 1.7 MG/DL (1.8-2.4); SODIUM 139 MMOL/L (135-145); TOTAL PROTEIN 7.4 GM/DL (6.4-8.2)
[2017-03-02 09:23] LABS: POTASSIUM 5.3 MMOL/L (3.6-5.0)
[2017-03-02 09:24] LABS: ANISOCYTOSIS MARKED; HYPOCHROMASIA MODERATE; MICROCYTOSIS MARKED; POIKILOCYTOSIS MARKED; TARGET CELLS MARKED
[2017-03-02 09:25] LABS: ROULEAUX SLIGHT
--- NOTE | 2017-03-02 09:54 | Diagnostic Imaging Report ---
PROCEDURE: CT head, face, and cervical spine without contrast. TECHNIQUE: Multiple contiguous axial images were obtained through the head, neck, and facial bones without the use of intravenous contrast. Sagittal and coronal reformations through the cervical spine and facial bones were also performed. INDICATION: Fall. FINDINGS: CT HEAD: There is a small scalp hematoma anteriorly in the frontal region. There is no intracranial hemorrhage. There is evidence of old infarcts in the left frontal and right parietal lobes. Background hypodensities in the periventricular and deep white matter are compatible with chronic microvascular ischemic changes. There is also an old lacunar infarct in the right caudate head. No hydrocephalus. No extra-axial fluid collection is seen. The calvarium appears grossly unremarkable. CT FACE: The paranasal sinuses, zygomatic arches, orbital margins, and sinus aldrich appears unremarkable. The pterygoid bones are intact. The nasal bone appears intact. The globes and retrobulbar contents of the orbits appear symmetric. The mastoid air cells and middle ear cavities appear clear. CT CERVICAL SPINE: The alignment of the posterior spinal line is satisfactory. There is slight rotation of C1 over C2 without lateral subluxation of the lateral masses of C1 and C2. This is probably positional. No widening of the predental space is seen. The vertebral body heights are preserved. There is moderate disc height loss at the C5-C6 and C6-C7 levels with posterior osteophytes at these levels. The facet joints demonstrate normal alignment with prominent degenerative changes, particularly along the upper facet joints in the cervical spine on the left side. Surgical clips in the right side of the neck are noted. The paraspinal soft tissues demonstrate no hematoma. IMPRESSION: CT HEAD: Small frontal scalp hematoma. No intracranial hemorrhage. CT FACE: No fracture is seen. CT CERVICAL SPINE: Slight rotation of C1 over C2 is likely positional. Prominent degenerative changes. No fracture is seen. Dictated by: Dictated on workstation # [id number]
[2017-03-02] MEDS ORDERED: ESOM40CA52 (10:15)
[2017-03-02] MEDS ORDERED: CLOP75TA28 (10:15)
[2017-03-02] MEDS ORDERED: GLUC1KIT (10:16)
[2017-03-02] MEDS ORDERED: ONDA4TAB11 (10:16)
[2017-03-02] MEDS ORDERED: MEMA1CAP PO (10:19)
[2017-03-02] MEDS ORDERED: CYCL10TA9 PO (10:19)
[2017-03-02] MEDS ORDERED: MAGNESIUM OXIDE (MAG-OX)400 MG TAB PO ONE (10:30)
[2017-03-02 10:44] LABS: BILIRUBIN,URINE NEGATIVE (NEGATIVE); KETONES,URINE NEGATIVE (NEGATIVE); LEUKOCYTE ESTERASE ,URINE 3+ (NEGATIVE); NITRITE,URINE NEGATIVE (NEGATIVE); PH,URINE 7 (5-9); PROTEIN,URINE NEGATIVE (NEGATIVE); UROBILINOGEN,URINE NORMAL (NORMAL)
[2017-03-02 10:52] LABS: SQUAMOUS EPITHELIAL CELL,UR >50 /HPF
[2017-03-02] MEDS ORDERED: NITR-65 PO (10:59)
[2017-03-02 11:18] VITALS: BP 186/84
== END 2017-03-02 11:11 | disposition home or self-care (01) ==
LOC: EDUNIT# 08:19 → ER 08:20
DX: S00.03XA Contusion of scalp, initial encounter (principal); S01.21XA Laceration without foreign body of nose, initial encounter; I95.9 Hypotension, unspecified; N39.0 Urinary tract infection, site not specified; I25.2 Old myocardial infarction; E78.00 Pure hypercholesterolemia, unspecified; E11.9 Type 2 diabetes mellitus without complications; I25.10 Atherosclerotic heart disease of native coronary artery without angina pectoris; F03.90 Unspecified dementia, unspecified severity, without behavioral disturbance, psychotic disturbance, mood disturbance, and anxiety; F17.210 Nicotine dependence, cigarettes, uncomplicated; Z86.73 Personal history of transient ischemic attack (TIA), and cerebral infarction without residual deficits; Z90.710 Acquired absence of both cervix and uterus; Z90.49 Acquired absence of other specified parts of digestive tract; Z95.5 Presence of coronary angioplasty implant and graft; Z79.4 Long term (current) use of insulin; Z79.82 Long term (current) use of aspirin; W19.XXXA Unspecified fall, initial encounter
CPT/HCPCS: 36415; 70450; 70486; 72125; 80053; 81000; 83735; 85007; 85027; 96360; 96361

== ENCOUNTER → 2017-03-02 | Outpatient (CLI) | payer MEDICARE, MEDICAID ==
[~2017-03-02] MED LIST changes: +CATHETER FLUSH 10 ML SYR IV PRN; +CLOP75TA28; +ESOM40CA52; +GLUC1KIT; -IOHEXOL 350 MG/ML 100 ML (OMNIPAQUE 350) VIAL IV ONE; +MEMA1CAP PO; +NITR-65 PO; -NS 100 ML (IVPB) BAG IV ONE; +ONDA4TAB11
== END ==
LOC: CARD 07:42
PROVIDERS: ATTEND Nurse Practitioner Family
DX: I25.10 Atherosclerotic heart disease of native coronary artery without angina pectoris (principal); I10 Essential (primary) hypertension; E78.4 Other hyperlipidemia; I65.23 Occlusion and stenosis of bilateral carotid arteries; I35.8 Other nonrheumatic aortic valve disorders; E34.0 Carcinoid syndrome; I34.0 Nonrheumatic mitral (valve) insufficiency

== ENCOUNTER → 2017-04-07 | Outpatient (CLI) | payer MEDICARE, MEDICAID ==
[~2017-04-07] VITALS: Ht 172.7 cm; Wt 56.7 kg
[~2017-04-07] MED LIST changes: +CLOP75TA28; +ESOM40CA52; +GLUC1KIT; +MEMA1CAP PO; +NITR-65 PO; +ONDA4TAB11; +ZOLEDRONATE 5 MG/100 ML (RECLAST) BTL IV ONE
[2017-04-07 13:02] VITALS: BP 141/55
[2017-04-07 13:53] VITALS: BP 141/55
[2017-04-07 14:21] VITALS: BP 141/55
== END ==
LOC: SDC 03-31 09:42
PROVIDERS: ATTEND Internal Medicine
DX: M81.0 Age-related osteoporosis without current pathological fracture (principal)
CPT/HCPCS: 96365

== ENCOUNTER → 2017-04-08 | Outpatient (CLI) | payer MEDICARE, MEDICAID ==
[~2017-04-08] MED LIST changes: -ZOLEDRONATE 5 MG/100 ML (RECLAST) BTL IV ONE
[2017-04-08 08:43] LABS: BILIRUBIN,URINE NEGATIVE (NEGATIVE); KETONES,URINE NEGATIVE (NEGATIVE); LEUKOCYTE ESTERASE ,URINE 1+ (NEGATIVE); NITRITE,URINE NEGATIVE (NEGATIVE); PH,URINE 7 (5-9); PROTEIN,URINE NEGATIVE (NEGATIVE); UROBILINOGEN,URINE NORMAL (NORMAL)
[2017-04-08 09:15] LABS: YEAST,URINE LARGE /HPF
== END ==
LOC: LAB 08:25
PROVIDERS: ATTEND Thoracic Surgery (Cardiothoracic Vascular Surgery)
DX: Z01.818 Encounter for other preprocedural examination (principal); N39.0 Urinary tract infection, site not specified; I65.23 Occlusion and stenosis of bilateral carotid arteries
CPT/HCPCS: 81000; 87088

== ENCOUNTER → 2017-04-20 | Outpatient (CLI) | payer MEDICARE, MEDICAID ==
[2017-04-20 09:15] LABS: MEAN CORPUSCULAR HEMOGLOBIN 15 PG (25-34); MEAN CORPUSCULAR HGB CONC 28 G/DL (32-36); MEAN CORPUSCULAR VOLUME 55 FL (80-99); PLATELET COUNT 476 10^3/uL (130-400); RED BLOOD COUNT 6.16 10^6/uL (4.35-5.85); RED CELL DISTRIBUTION WIDTH 25.2 % (10.0-14.5); WHITE BLOOD COUNT 9.6 10^3/uL (4.3-11.0)
[2017-04-20 09:41] LABS: ALANINE AMINOTRANSFERASE 41 U/L (0-55); ALBUMIN 3.8 GM/DL (3.2-4.5); ANION GAP 11 MMOL/L (5-14); ASPARTATE AMINO TRANSFERASE 36 U/L (5-34); BILIRUBIN,TOTAL 0.3 MG/DL (0.1-1.0); BLOOD UREA NITROGEN 18 MG/DL (7-18); BUN/CREATININE RATIO 21; CALCIUM 8.8 MG/DL (8.5-10.1); CARBON DIOXIDE 25 MMOL/L (21-32); CHLORIDE 102 MMOL/L (98-107); CREATININE SERUM 0.84 MG/DL (0.60-1.30); GFR ESTIMATED > 60; GLUCOSE 261 MG/DL (70-105); POTASSIUM 3.9 MMOL/L (3.6-5.0); SODIUM 138 MMOL/L (135-145); TOTAL PROTEIN 7.1 GM/DL (6.4-8.2)
[2017-04-20 10:42] LABS: BILIRUBIN,URINE NEGATIVE (NEGATIVE); KETONES,URINE NEGATIVE (NEGATIVE); LEUKOCYTE ESTERASE ,URINE 3+ (NEGATIVE); NITRITE,URINE NEGATIVE (NEGATIVE); PH,URINE 6 (5-9); PROTEIN,URINE 3+ (NEGATIVE); UROBILINOGEN,URINE NORMAL (NORMAL)
[2017-04-20 10:54] LABS: WBC,URINE TNTC /HPF
== END ==
LOC: LAB 09:00
PROVIDERS: ATTEND Thoracic Surgery (Cardiothoracic Vascular Surgery)
DX: Z01.812 Encounter for preprocedural laboratory examination (principal); R82.99 Other abnormal findings in urine
CPT/HCPCS: 36415; 80053; 81000; 85027; 87088

== ENCOUNTER 2017-05-31 11:02 | Outpatient (RCR) | payer MEDICARE, MEDICAID | END 2017-06-01 | disposition home or self-care (01) | PROVIDERS: ATTEND Internal Medicine | DX: Z09 Encounter for follow-up examination after completed treatment for conditions other than malignant neoplasm (principal); S32.010D Wedge compression fracture of first lumbar vertebra, subsequent encounter for fracture with routine healing ==

== ENCOUNTER 2017-06-25 10:41 | Outpatient (RCR) | payer MEDICARE, MEDICAID ==
[~2017-06-25 10:41] MED LIST changes: +PIOG15TA23 PO
== END 2017-06-25 11:36 | disposition home or self-care (01) ==
PROVIDERS: ATTEND Internal Medicine
DX: Z09 Encounter for follow-up examination after completed treatment for conditions other than malignant neoplasm (principal); S32.010D Wedge compression fracture of first lumbar vertebra, subsequent encounter for fracture with routine healing

== ENCOUNTER → 2017-08-25 | Outpatient (CLI) | payer MEDICARE, MEDICAID ==
[~2017-08-25] MED LIST changes: -PIOG15TA23 PO; +PIOG15TA67 PO
== END ==
LOC: RAD 08:12
PROVIDERS: ATTEND Internal Medicine
DX: Z53.8 Procedure and treatment not carried out for other reasons (principal); M79.89 Other specified soft tissue disorders

== ENCOUNTER → 2018-03-22 | Outpatient (CLI) | payer MEDICARE, MEDICAID ==
[~2018-03-22] VITALS: Ht 172.7 cm; Wt 57.2 kg
[~2018-03-22] MED LIST changes: +CATHETER FLUSH 10 ML SYR IV PRN; +REGADENOSON 0.4 MG/5 ML SYR (LEXISCAN) IV ONE
[2018-03-22 10:59] LABS: BASOPHILS # (AUTO) 0.1 10^3/uL (0.0-0.1); BASOPHILS % (AUTO) 1 % (0-10); EOSINOPHILS # (AUTO) 0.3 10^3/uL (0.0-0.3); EOSINOPHILS % (AUTO) 2 % (0-10); HEMATOCRIT 40 % (35-52); LYMPHOCYTES # (AUTO) 2.6 X 10^3 (1.0-4.0); LYMPHOCYTES % (AUTO) 21 % (12-44); MEAN CORPUSCULAR HEMOGLOBIN 18 PG (25-34); MEAN CORPUSCULAR HGB CONC 30 G/DL (32-36); MEAN CORPUSCULAR VOLUME 59 FL (80-99); MONOCYTES # (AUTO) 1.1 X 10^3 (0.0-1.0); MONOCYTES % (AUTO) 9 % (0-12); NEUTROPHILS % (AUTO) 66 % (42-75); PLATELET COUNT 438 10^3/uL (130-400); RED BLOOD COUNT 6.79 10^6/uL (4.35-5.85); RED CELL DISTRIBUTION WIDTH 25.5 % (10.0-14.5)
[2018-03-22 11:21] LABS: ALANINE AMINOTRANSFERASE 12 U/L (0-55); ALBUMIN 4.3 GM/DL (3.2-4.5); ALKALINE PHOSPHATASE 68 U/L (40-136); BILIRUBIN,TOTAL 0.6 MG/DL (0.1-1.0); BUN/CREATININE RATIO 14; CALCIUM 9.7 MG/DL (8.5-10.1); CARBON DIOXIDE 25 MMOL/L (21-32); CHLORIDE 105 MMOL/L (98-107); CHOLESTEROL 146 MG/DL (< 200); CREATININE SERUM 0.73 MG/DL (0.60-1.30); GFR ESTIMATED > 60; GLUCOSE 124 MG/DL (70-105); HDL CHOLESTEROL 58 MG/DL (40-60); MAGNESIUM 2.1 MG/DL (1.8-2.4); POTASSIUM 4.4 MMOL/L (3.6-5.0); SODIUM 140 MMOL/L (135-145); TOTAL PROTEIN 7.4 GM/DL (6.4-8.2); TRIGLYCERIDES 82 MG/DL (<150); VLDL CHOLESTEROL 16 MG/DL (5-40)
[2018-03-22 11:46] LABS: ERYTHROCYTE SEDIMENTATION RATE 2 MM/HR (0-30)
--- NOTE | 2018-03-25 09:27 | STRESS TEST ---
DATE OF SERVICE: 03/22/2018 RESTING AND POST REGADENOSON TECHNETIUM-99M TETROFOSMIN SPECT CT IMAGING ORDERING PHYSICIAN: Dr. Saha. PRIMARY CARE PHYSICIAN: Dr. Lan. Baseline images were carried out after injection of 10.74 mCi technetium-99m Tetrofosmin. This was followed by 0.4 mg regadenoson and 30.2 mCi technetium-99m Tetrofosmin for stress imaging. The electrocardiogram showed sinus rhythm with subtle nonspecific ST abnormality. This did not change significantly with regadenoson infusion. Review of images at rest and following stress indicates a predominantly fixed basal inferior perfusion defect. Gated images show basal inferior hypokinesis. Left ventricular ejection fraction is calculated to be 48%. Left ventricular end diastolic volume is 29 mL. TID is absent (1.03). CONCLUSIONS: 1. The study is suggestive of basal inferior infarction with a small amount of yogesh-infarct ischemia. 2. Basal inferior hypokinesis. 3. Mild impairment of left ventricular systolic function with a calculated ejection fraction of 48%. Job ID: [id number] DocumentID: [id number] Dictated Date: 03/25/2018 08:47:44 Roll Forming Machine Operator Date: 03/25/2018 09:27:44 Dictated By: JOAQUÍN SAHA MD, MA, FACP, FACC, MTDD
== END ==
LOC: CARD 10:19
PROVIDERS: ATTEND Internal Medicine Cardiovascular Disease
DX: I25.10 Atherosclerotic heart disease of native coronary artery without angina pectoris (principal); E78.5 Hyperlipidemia, unspecified; I65.29 Occlusion and stenosis of unspecified carotid artery; I10 Essential (primary) hypertension; E11.9 Type 2 diabetes mellitus without complications; Z72.0 Tobacco use
CPT/HCPCS: 36415; 78452; 80053; 80061; 83735; 84443; 85025; 85652; 93017

== ENCOUNTER → 2018-03-28 | Outpatient (CLI) | payer MEDICARE, MEDICAID ==
[~2018-03-28] MED LIST changes: -CATHETER FLUSH 10 ML SYR IV PRN; -REGADENOSON 0.4 MG/5 ML SYR (LEXISCAN) IV ONE; +RT-ALBUTEROL SULF 2.5 MG/3 ML PRE-MIX VIAL INH ONE
== END ==
LOC: RT 08:14
PROVIDERS: ATTEND Internal Medicine Cardiovascular Disease
DX: I25.10 Atherosclerotic heart disease of native coronary artery without angina pectoris (principal); E78.5 Hyperlipidemia, unspecified; I10 Essential (primary) hypertension; E11.9 Type 2 diabetes mellitus without complications; Z72.0 Tobacco use
CPT/HCPCS: 94060; 94729

== ENCOUNTER → 2018-04-26 | Outpatient (CLI) | payer MEDICARE, MEDICAID ==
[~2018-04-26] MED LIST changes: -RT-ALBUTEROL SULF 2.5 MG/3 ML PRE-MIX VIAL INH ONE
--- NOTE | 2018-04-26 12:46 | Diagnostic Imaging Report ---
PROCEDURE: US Bilateral lower extremity arterial. TECHNIQUE: Multiple real-time grayscale images are obtained through both lower extremity arterial systems with color Doppler imaging and color Doppler spectral analysis. INDICATION: Peripheral arterial vascular disease. History of hypertension, diabetes and tobacco use. Claudication symptoms. FINDINGS: There is diffusely elevated velocities throughout the bilateral lower extremity arterial systems. A focal area of velocity change does not appear to be present suggesting a focal area of stenosis. There is diffusely dampened biphasic waveforms noted within the major arteries. There is no detectable flow within the right posterior tibial artery at the level of the ankle. Otherwise major arteries are patent to the level of the ankles, the dorsalis pedis and left posterior tibial artery. IMPRESSION: 1. Diffusely elevated velocities within both lower extremities, suggestive of a systemic arterial hypertension. 2. No detectable flow within the right posterior tibial artery likely occluded or with markedly diminished flow. The arteries are otherwise patent throughout the bilateral lower extremities. Dictated by: Dictated on workstation # [id number]
== END ==
LOC: RAD 08:55
PROVIDERS: ATTEND Internal Medicine
DX: E11.51 Type 2 diabetes mellitus with diabetic peripheral angiopathy without gangrene (principal); I73.9 Peripheral vascular disease, unspecified; I10 Essential (primary) hypertension; Z72.0 Tobacco use
CPT/HCPCS: 93925

== ENCOUNTER → 2018-06-08 | Outpatient (CLI) | payer MEDICARE, MEDICAID ==
[2018-06-08 10:59] LABS: BASOPHILS # (AUTO) 0.1 10^3/uL (0.0-0.1); BASOPHILS % (AUTO) 2 % (0-10); EOSINOPHILS # (AUTO) 0.2 10^3/uL (0.0-0.3); EOSINOPHILS % (AUTO) 3 % (0-10); HEMATOCRIT 40 % (35-52); HEMOGLOBIN 12.3 G/DL (11.5-16.0); LYMPHOCYTES # (AUTO) 2.7 X 10^3 (1.0-4.0); LYMPHOCYTES % (AUTO) 31 % (12-44); MEAN CORPUSCULAR HEMOGLOBIN 18 PG (25-34); MEAN CORPUSCULAR HGB CONC 31 G/DL (32-36); MEAN CORPUSCULAR VOLUME 59 FL (80-99); MONOCYTES # (AUTO) 0.9 X 10^3 (0.0-1.0); MONOCYTES % (AUTO) 10 % (0-12); NEUTROPHILS # (AUTO) 4.7 X 10^3 (1.8-7.8); NEUTROPHILS % (AUTO) 55 % (42-75); PLATELET COUNT 344 10^3/uL (130-400); WHITE BLOOD COUNT 8.7 10^3/uL (4.3-11.0)
== END ==
LOC: LAB 10:35
PROVIDERS: ATTEND Podiatrist Foot & Ankle Surgery
DX: L03.116 Cellulitis of left lower limb (principal)
CPT/HCPCS: 36415; 85025; 86141

== ENCOUNTER → 2018-06-09 | Outpatient (CLI) | payer MEDICARE, MEDICAID ==
--- NOTE | 2018-06-09 18:23 | Diagnostic Imaging Report ---
PROCEDURE: MR imaging left lower extremity without contrast. INDICATION: Ulcer on lateral aspect of the foot. TECHNIQUE: Multiplanar and multisequence noncontrast MR imaging was performed of the left foot. COMPARISON: Radiographs of 02/15/2015. FINDINGS: Imaging is performed from the midfoot through the distal aspect of the foot. There is significant metallic artifact over the fifth metatarsal. This appears to be attributed to two pins demonstrated on prior radiograph. A marker is placed along the lateral aspect of the foot at the area of concern. Just deep to this is the proximal extent of the metallic artifact. This area is largely obscured but does demonstrate some soft tissue edema to be present. While the distal third of the metatarsal is obscured, definitive signal abnormality about the metatarsal and/or its phalanges is not suggested. The remaining osseous structures also demonstrate relatively normal signal intensity. Definitive edema or erosion does not appear to be present. There is truncation and some bony resorption, appearing chronic, at the distal phalanx of the great toe. Minimal cystic change at the base of the proximal phalanx of the great toe and smaller area at the distal phalanx. Mild joint space narrowing at the first MTP joint. No definitive soft tissue abscess formation. IMPRESSION: 1. Unfortunately, in the area of concern, lateral aspect of the foot, there is significant metallic artifact from two apparent fixation pins. There is soft tissue edema in this region, compatible with known ulceration. Definitive soft tissue abscess is not suggested. No definitive bone signal changes to suggest underlying osteomyelitis at this time. Dictated by: Dictated on workstation # [id number]
== END ==
LOC: RAD 16:16
PROVIDERS: ATTEND Podiatrist Foot & Ankle Surgery
DX: L97.529 Non-pressure chronic ulcer of other part of left foot with unspecified severity (principal)

== ENCOUNTER → 2018-06-10 | Outpatient (CLI) | payer MEDICARE, MEDICAID ==
[2018-06-10 08:14] LABS: BILIRUBIN,URINE NEGATIVE (NEGATIVE); CLARITY,URINE CLEAR; COLOR,URINE YELLOW; GLUCOSE, URINE (UA) 4+ (NEGATIVE); KETONES,URINE NEGATIVE (NEGATIVE); LEUKOCYTE ESTERASE ,URINE 1+ (NEGATIVE); NITRITE,URINE NEGATIVE (NEGATIVE); PH,URINE 6 (5-9); PROTEIN,URINE 1+ (NEGATIVE); UROBILINOGEN,URINE NORMAL (NORMAL)
[2018-06-10 08:25] LABS: BACTERIA,URINE NEGATIVE /HPF; WBC,URINE 25-50 /HPF
== END ==
LOC: LAB 07:57
PROVIDERS: ATTEND Thoracic Surgery (Cardiothoracic Vascular Surgery)
DX: Z01.818 Encounter for other preprocedural examination (principal); N39.0 Urinary tract infection, site not specified
CPT/HCPCS: 81000; 87088

== ENCOUNTER → 2018-06-15 | Outpatient (CLI) | payer MEDICARE, MEDICAID ==
[2018-06-15 08:31] LABS: BILIRUBIN,URINE NEGATIVE (NEGATIVE); CLARITY,URINE CLEAR; COLOR,URINE YELLOW; GLUCOSE, URINE (UA) 4+ (NEGATIVE); KETONES,URINE NEGATIVE (NEGATIVE); LEUKOCYTE ESTERASE ,URINE 1+ (NEGATIVE); NITRITE,URINE NEGATIVE (NEGATIVE); PH,URINE 6 (5-9); PROTEIN,URINE 2+ (NEGATIVE); UROBILINOGEN,URINE NORMAL (NORMAL)
[2018-06-15 08:40] LABS: BACTERIA,URINE FEW /HPF
== END ==
LOC: LAB 08:12
PROVIDERS: ATTEND Thoracic Surgery (Cardiothoracic Vascular Surgery)
DX: Z01.810 Encounter for preprocedural cardiovascular examination (principal); N39.0 Urinary tract infection, site not specified
CPT/HCPCS: 81000; 87088

== ENCOUNTER 2018-07-03 13:53 | Inpatient (IN) | payer MEDICARE, MEDICAID ==
[~2018-07-03] VITALS: Ht 170.2 cm; Wt 59.9 kg
--- OUTSIDE RECORDS SUMMARY | 2018-07-03 14:03 | XMS REPORT | Continuity of Care Document ---
Author Author [facility] Organization [facility] Address Unknown Phone Unavailable Allergies Active Description Code Type Severity Reaction Onset Reported/Identified Relationship to Patient Clinical Status Yes No Known Drug Allergies [id number] Drug Allergy Unknown N/A 01/29/2017 Medications There is no data. Problems Date Dx Coded Attending Type Code Diagnosis Diagnosed By 04/08/1135 JOSEY RIDER DO Ot S32.010D WEDGE COMPRSN FX FIRST LUM VERT, SUBS FO 04/08/1135 JOSEY RIDER DO Ot Z09 ENCNTR FOR F/U EXAM AFT TRTMT FOR COND O 11/18/2011 Ot 250.00 DIAB JEFFY WO COMPL, TYPE II OR UNSPEC TY 11/18/2011 Ot 272.4 HYPERLIPIDEMIA NEC/NOS 11/18/2011 Ot 401.9 HYPERTENSION NOS 11/18/2011 Ot 412 OLD MYOCARDIAL INFARCT 11/18/2011 Ot 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 [place] CORON 11/18/2011 Ot 433.10 CAROTID ARTERY OCCLUSION W O CEREBRAL IN 11/18/2011 Ot 530.81 ESOPHAGEAL REFLUX 11/18/2011 Ot 781.3 LACK OF COORDINATION 11/18/2011 Ot 793.11 SOLITARY PULMONARY NODULE 11/18/2011 Ot 799.02 HYPOXEMIA 11/18/2011 Ot V58.67 LONG-TERM ( 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 11/24/2011 Ot 250.00 DIAB JEFFY WO COMPL, TYPE II OR UNSPEC TY 11/24/2011 Ot 305.1 TOBACCO USE DISORDER 11/24/2011 Ot 401.9 HYPERTENSION NOS 11/24/2011 Ot 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 [place] CORON 11/24/2011 Ot 433.10 CAROTID ARTERY OCCLUSION [...] RIDER DO Ot 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 [place] CORON 08/03/2014 JOSEY RIDER DO Ot 443.9 [...] 793.82 08/06/2014 Ot V76.12 08/06/2014 NEY ASTUDILLO SEARCH ENGINE OPTIMIZATION STRATEGIST Ot 719.07 08/06/2014 NEY ASTUDILLO SEARCH ENGINE OPTIMIZATION STRATEGIST Ot 719.47 08/06/2014 JOSEY RIDER DO Ot V76.12 08/06/2014 Ot V76.12 08/09/2014 Ot V76.12 08/24/2014 Ot V76.12 09/06/2014 LAURIE MARCUM, RD Newman Ot 250.80 DIAB W OTH SPEC MANIFEST, [...] RIDER DO Ot 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 [place] CORON 09/25/2014 JOSEY RIDER DO Ot 530.81 [...] NO PROC FOR REASONS NEC 02/14/2015 ABRAN HINOJOSAC, JOAQUÍN FACP CCDS Ot 272.4 02/14/2015 ABRAN HINOJOSAC, ALI FACP CCDS Ot 401.9 02/14/2015 ABRAN MARCUM FACC, ALI FACP CCDS Ot 414.9 02/14/2015 ABRAN MARCUM FACC, ALI FACP CCDS Ot 433.10 02/15/2015 KYMBERLY DPM, DAVID Q Ot M20.5X2 OTHER DEFORMITIES OF TOE(S) (ACQUIRED), 02/15/2015 KYMBERLY DPM, DAVID Q Ot M85.872 OTH DISRD OF BONE DENSITY AND STRUCTURE, 02/15/2015 KYMBERLY DPM, DAVID Q Ot Z79.899 OTHER RETIREMENT (CURRENT) DRUG THERAPY 02/20/2015 ABRAN MARCUM FACC, ALI FACP CCDS Ot 272.4 02/20/2015 ABRAN MARCUM FACC, ALI FACP CCDS Ot 401.9 02/20/2015 ABRAN MARCUM FACC, ALI FACP CCDS Ot 414.9 02/20/2015 ABRAN MARCUM FACC, ALI FACP CCDS Ot 433.10 04/01/2015 KYMBERLY DPM, DAVID Q Ot L97.529 04/09/2015 ABRAN HINOJOSAC, ALI FACP CCDS Ot 272.4 04/09/2015 ABRAN [...] KYMBERLY DPM, DAVID Q Ot L97.529 07/25/2015 RIDER DO, JOSEY Parikh Ot Z12.31 08/06/2015 RIDER DO, JOSEY Parikh Ot R92.8 08/14/2015 RIDER DO, JOSEY Parikh Ot Z12.31 08/21/2015 RIDER DO, JOSEY Parikh Ot Z12.31 08/28/2015 RIDER DO, JOSEY Parikh Ot R92.8 OTH ABN AND INCONCLUSIVE FINDINGS ON DX 09/11/2015 RIDER DO, JOSEY Parikh Ot R92.8 OTH ABN AND INCONCLUSIVE FINDINGS ON DX 12/03/2015 RD SULLIVAN MD Ot F17.210 NICOTINE DEPENDENCE, CIGARETTES, UNCOMPL 12/03/2015 RD SULLIVAN MD Ot I10 ESSENTIAL (PRIMARY) HYPERTENSION 12/03/2015 RD SULLIVAN MD Ot I25.10 ATHSCL HEART DISEASE OF [place] CORONARY 12/03/2015 RD SULLIVAN MD Ot R07.9 CHEST PAIN, UNSPECIFIED 12/03/2015 RD SULLIVAN MD Ot Z95.5 PRESENCE OF CORONARY ANGIOPLASTY IMPLANT 12/04/2015 RD SULLIVAN MD Ot F17.210 NICOTINE DEPENDENCE, CIGARETTES, UNCOMPL 12/04/2015 RD SULLIVAN MD Ot I10 ESSENTIAL (PRIMARY) HYPERTENSION 12/04/2015 RD SULLIVAN MD Ot I25.10 ATHSCL HEART DISEASE OF [place] CORONARY 12/04/2015 RD SULLIVAN MD Ot R07.9 CHEST PAIN, UNSPECIFIED 12/04/2015 RD SULLIVAN MD T Ot Z95.5 PRESENCE OF CORONARY ANGIOPLASTY IMPLANT 12/05/2015 RD SULLIVAN MD Ot F17.210 NICOTINE DEPENDENCE, CIGARETTES, UNCOMPL 12/05/2015 RD SULLIVAN MD T Ot I10 ESSENTIAL (PRIMARY) HYPERTENSION 12/05/2015 RD SULLIVAN MD T Ot I25.10 ATHSCL HEART DISEASE OF [place] CORONARY 12/05/2015 RD SULLIVAN MD Ot R07.9 CHEST PAIN, UNSPECIFIED 12/05/2015 RD SULLIVAN MD Ot Z95.5 PRESENCE OF CORONARY ANGIOPLASTY IMPLANT 12/09/2015 RD SULLIVAN MD Ot F17.210 NICOTINE DEPENDENCE, CIGARETTES, UNCOMPL 12/09/2015 RD SULLIVAN MD Ot I10 ESSENTIAL (PRIMARY) HYPERTENSION 12/09/2015 RD SULLIVAN MD Ot I25.10 ATHSCL HEART DISEASE OF [place] CORONARY 12/09/2015 RD SULLIVAN MD Ot R07.9 CHEST PAIN, UNSPECIFIED 12/09/2015 RD SULLIVAN MD Ot Z95.5 PRESENCE OF CORONARY ANGIOPLASTY IMPLANT 12/26/2015 ANAYELI DICKENS INSTITUTIONAL COMMODITY ANALYST Ot Z53.9 PROCEDURE AND TREATMENT NOT CARRIED OUT, 12/26/2015 ANAYELI DICKENS INSTITUTIONAL COMMODITY ANALYST Ot E78.4 OTHER HYPERLIPIDEMIA 12/26/2015 NICKMAANAYELI L INSTITUTIONAL COMMODITY ANALYST Ot I65.23 OCCLUSION AND STENOSIS OF BILATERAL NG 01/17/2016 ANAYELI DICKENS L INSTITUTIONAL COMMODITY ANALYST Ot E78.4 OTHER HYPERLIPIDEMIA 01/17/2016 BAIMA ANAYELI L INSTITUTIONAL COMMODITY ANALYST Ot I65.23 OCCLUSION AND STENOSIS OF BILATERAL NG 01/24/2016 BAIMA, ANAYELI L INSTITUTIONAL COMMODITY ANALYST Ot I65.23 OCCLUSION AND STENOSIS OF BILATERAL NG 01/27/2016 JOSEY RIDER DO Ot R92.8 OTH ABN AND INCONCLUSIVE FINDINGS ON DX 01/27/2016 JOSEY RIDER DO Ot R92.8 OTH ABN AND INCONCLUSIVE FINDINGS ON DX 01/30/2016 ANAYELI DICKENS INSTITUTIONAL COMMODITY ANALYST Ot E78.4 OTHER HYPERLIPIDEMIA 01/30/2016 BAIMA ANAYELI L INSTITUTIONAL COMMODITY ANALYST Ot I65.23 OCCLUSION AND STENOSIS OF BILATERAL NG 02/04/2016 BAIMA ANAYELI L INSTITUTIONAL COMMODITY ANALYST Ot I65.23 OCCLUSION AND STENOSIS OF BILATERAL [...] NOS 02/14/2016 Ot 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 [place] CORON 02/14/2016 Ot 433.10 CAROTID ARTERY OCCLUSION W O CEREBRAL IN 02/14/2016 Ot V13.02 PERSONAL HISTORY, URINARY (TRACT) INFECT 02/14/2016 Ot V45.82 PERCUTANEOUS TRANSLUM CORON ANGIOPLASTY 02/14/2016 Ot V58.63 LONG-TERM( CURRENT)USE OF ANTIPLATELET/AN 02/14/2016 Ot V58.67 LONG-TERM ( 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 02/14/2016 Ot V58.69 OTH MED,LT, CURRENT USE 02/14/2016 Ot 433.10 CAROTID ARTERY OCCLUSION W O CEREBRAL IN 02/14/2016 Ot V72.63 PRE- PROCEDURAL LABORATORY EXAMINATION 02/14/2016 Ot V74.8 SCREEN- BACTERIAL DIS NEC 02/14/2016 Ot V67.09 SURGERY FOLLOW-UP, OTHER SURGERY 02/14/2016 Ot 793.82 INCONCLUSIVE MAMMOGRAM 02/14/2016 Ot V76.12 OTH SCREEN MAMMO-MALIGN NEOPLASM OF [place] 02/14/2016 RIDINGS, NEY C SEARCH ENGINE OPTIMIZATION STRATEGIST Ot 719.07 JOINT EFFUSION-ANKLE 02/14/2016 RIDINGS, NEY C SEARCH ENGINE OPTIMIZATION STRATEGIST Ot 719.47 JOINT PAIN-ANKLE 02/14/2016 JOSEY RIDER DO Ot V76.12 OTH SCREEN MAMMO-MALIGN NEOPLASM OF [place] 02/14/2016 Ot V76.12 OTH SCREEN MAMMO-MALIGN NEOPLASM OF [place] 02/14/2016 KYMBERLY DPM, DAVID Q Ot 727.1 BUNION 02/14/2016 KYMBERLY DPM, DAVID Q Ot V72.83 EXAM PRE-OPERATIVE NEC 02/14/2016 ABRAN MARCUM FACC, JOAQUÍN FACP CCDS Ot 272.4 HYPERLIPIDEMIA NEC/NOS 02/14/2016 ABRAN MARCUM FACC, ALI FACP CCDS Ot 401.9 HYPERTENSION NOS 02/14/2016 ABRAN MARCUM FACC, ALI FACP CCDS Ot 414.9 CHR ISCHEMIC HRT DIS NOS 02/14/2016 ABRAN MARCUM FACC, ALI FACP CCDS Ot 433.10 CAROTID ARTERY OCCLUSION W O CEREBRAL IN 02/14/2016 ABRAN MARCUM FACC, ALI FACP CCDS Ot 272.4 HYPERLIPIDEMIA NEC/NOS 02/14/2016 ABRAN MARCUM FACC, ALI FACP CCDS Ot 401.9 HYPERTENSION NOS 02/14/2016 ABRAN MARCUM FACC, ALI FACP CCDS Ot 414.9 CHR ISCHEMIC HRT DIS NOS 02/14/2016 ABRAN MARCUM FACC, ALI FACP CCDS Ot 433.10 CAROTID ARTERY OCCLUSION [...] ABN AND INCONCLUSIVE FINDINGS ON DX 02/14/2016 ANAYELI DICKENS INSTITUTIONAL COMMODITY ANALYST Ot I65.23 OCCLUSION AND STENOSIS OF BILATERAL NG 02/14/2016 ANAYELI DICKENS INSTITUTIONAL COMMODITY ANALYST Ot Z53.9 PROCEDURE AND TREATMENT NOT CARRIED OUT, 02/14/2016 ANAYELI DICKENS INSTITUTIONAL COMMODITY ANALYST Ot E78.4 OTHER HYPERLIPIDEMIA 02/14/2016 ANAYELI DICKENS INSTITUTIONAL COMMODITY ANALYST Ot I65.23 OCCLUSION AND STENOSIS OF BILATERAL NG 02/14/2016 JOSEY RIDER DO Ot R92.8 OTH ABN AND INCONCLUSIVE FINDINGS ON DX 02/18/2016 ANAYELI DICKENS INSTITUTIONAL COMMODITY ANALYST Ot E78.4 OTHER HYPERLIPIDEMIA 02/18/2016 ANAYELI DICKENS L INSTITUTIONAL COMMODITY ANALYST Ot I25.10 ATHSCL HEART DISEASE OF [place] CORONARY 03/06/2016 ANAYELI DICKENS INSTITUTIONAL COMMODITY ANALYST Ot E78.4 OTHER HYPERLIPIDEMIA 03/06/2016 ANAYELI DICKENS INSTITUTIONAL COMMODITY ANALYST Ot I25.10 ATHSCL HEART DISEASE OF [place] CORONARY 03/18/2016 ANAYELI DICKENS Hilton INSTITUTIONAL COMMODITY ANALYST Ot E78.4 OTHER HYPERLIPIDEMIA 03/18/2016 NICKANAYELI HURTADO Hilton INSTITUTIONAL COMMODITY ANALYST Ot I25.10 ATHSCL HEART DISEASE OF [place] CORONARY 04/10/2016 RIDERJOSEY DODSON DO J Ot R15.9 FULL INCONTINENCE OF FECES 04/10/2016 RIDER DO, JOSEY J Ot R32 UNSPECIFIED URINARY INCONTINENCE 04/10/2016 RIDER DO, JOSEY J Ot R15.9 FULL INCONTINENCE OF FECES 04/10/2016 RIDER DO, JOSEY J Ot R32 UNSPECIFIED URINARY INCONTINENCE 04/22/2016 RIDER DO, JOSEY J Ot R92.8 OTH ABN AND INCONCLUSIVE FINDINGS ON DX 05/07/2016 RIDER DO, JOSEY J Ot R15.9 FULL INCONTINENCE OF FECES 05/07/2016 RIDER DO, JOSEY J Ot R32 UNSPECIFIED URINARY INCONTINENCE 05/07/2016 RIDER DO, JOSEY J Ot R15.9 FULL INCONTINENCE OF FECES 05/07/2016 RIDER DO, JOSEY J Ot R32 UNSPECIFIED URINARY INCONTINENCE 06/18/2016 RIDER DO, JOSEY Parikh Ot R19.7 DIARRHEA, UNSPECIFIED 07/21/2016 RIDER DO, JOSEY Parikh Ot R92.2 INCONCLUSIVE MAMMOGRAM 07/21/2016 ADRY BARRERA, JOSEY Parikh Ot R92.2 INCONCLUSIVE MAMMOGRAM 07/21/2016 RIDER DO, JOSEY J Ot R92.2 INCONCLUSIVE MAMMOGRAM 07/21/2016 ADRY BARRERA, JOSEY Parikh Ot R92.8 OTH ABN AND INCONCLUSIVE FINDINGS ON DX 08/03/2016 KAYLIN DONIS Ot E11.9 TYPE 2 DIABETES MELLITUS WITHOUT COMPLIC 08/03/2016 KAYLIN DONIS Ot F17.210 NICOTINE DEPENDENCE, CIGARETTES, UNCOMPL 08/03/2016 KAYLIN DONIS Ot I25.10 ATHSCL HEART DISEASE OF [place] CORONARY 08/03/2016 KAYLIN DONIS Ot S01.511A LACERATION WITHOUT FOREIGN BODY OF LIP, 08/03/2016 KAYLIN DONIS Ot S60.512A ABRASION OF LEFT HAND, INITIAL ENCOUNTER 08/03/2016 KAYLIN DONIS Ot W19.XXXA UNSPECIFIED FALL, INITIAL ENCOUNTER 08/03/2016 KAYLIN DONIS Ot Y99.8 OTHER EXTERNAL CAUSE STATUS 08/03/2016 KAYLIN DONIS Ot Z23 ENCOUNTER FOR IMMUNIZATION 08/03/2016 KAYLIN DONIS Ot Z79.4 RETIREMENT (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 08/03/2016 KAYLIN DONIS Ot Z79.82 RETIREMENT (CURRENT) USE OF ASPIRIN 08/03/2016 KAYLIN DONIS Ot Z79.899 OTHER INCOME TAX CONSULTANT (CURRENT) DRUG THERAPY 08/03/2016 KAYLIN DONIS Ot Z95.5 PRESENCE OF CORONARY ANGIOPLASTY IMPLANT 08/03/2016 KAYLIN DONIS Ot Z96.641 PRESENCE OF RIGHT ARTIFICIAL HIP JOINT 08/11/2016 JOSEY RIDER DO Ot R92.8 OTH ABN AND INCONCLUSIVE FINDINGS ON DX 08/19/2016 JOSEY RIDER DO Ot R92.8 OTH ABN AND INCONCLUSIVE FINDINGS ON DX 08/25/2016 ANAYELI DICKENS INSTITUTIONAL COMMODITY ANALYST Ot E78.4 OTHER HYPERLIPIDEMIA 08/25/2016 ANAYELI DICKENS INSTITUTIONAL COMMODITY ANALYST Ot I10 ESSENTIAL (PRIMARY) HYPERTENSION 08/25/2016 BAIGENESIS ANAYELI L INSTITUTIONAL COMMODITY ANALYST Ot I25.10 ATHSCL HEART DISEASE OF [place] CORONARY 09/15/2016 JOSEY RIDER DO Ot R19.7 DIARRHEA, UNSPECIFIED 09/22/2016 BAIMA ANAYELI L INSTITUTIONAL COMMODITY ANALYST Ot E78.4 OTHER HYPERLIPIDEMIA 09/22/2016 BAIMA, ANAYELI L INSTITUTIONAL COMMODITY ANALYST Ot I10 ESSENTIAL (PRIMARY) HYPERTENSION 09/22/2016 BAIMAANNEANAYELI L INSTITUTIONAL COMMODITY ANALYST Ot I25.10 ATHSCL HEART DISEASE OF [place] CORONARY 09/28/2016 BAIMAANNEANAYELI L INSTITUTIONAL COMMODITY ANALYST Ot E78.4 OTHER HYPERLIPIDEMIA 09/28/2016 BAIMA, ANAYELI L INSTITUTIONAL COMMODITY ANALYST Ot I10 ESSENTIAL (PRIMARY) HYPERTENSION 09/28/2016 ANNE DICKENSHER L INSTITUTIONAL COMMODITY ANALYST Ot I25.10 ATHSCL HEART DISEASE OF [place] CORONARY 10/13/2016 KAYLIN DONIS Ot E11.9 TYPE 2 DIABETES MELLITUS WITHOUT COMPLIC 10/13/2016 KAYLIN DONIS Ot F17.210 NICOTINE DEPENDENCE, CIGARETTES, UNCOMPL 10/13/2016 KAYLIN DONIS Ot I25.10 ATHSCL HEART DISEASE OF [place] CORONARY 10/13/2016 KAYLIN DONIS Ot S01.511A LACERATION WITHOUT FOREIGN BODY OF LIP, 10/13/2016 KAYLIN DONIS Ot S60.512A ABRASION OF LEFT HAND, INITIAL ENCOUNTER 10/13/2016 KAYLIN DONIS Ot W19.XXXA UNSPECIFIED FALL, INITIAL ENCOUNTER 10/13/2016 KAYLIN DONIS Ot Y99.8 OTHER EXTERNAL CAUSE STATUS 10/13/2016 KAYLIN DONIS Ot Z23 ENCOUNTER FOR IMMUNIZATION 10/13/2016 KAYLIN DONIS Ot Z79.4 INCOME TAX CONSULTANT (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 10/13/2016 KAYLIN DONIS Ot Z79.82 INCOME TAX CONSULTANT (CURRENT) USE OF ASPIRIN 10/13/2016 KAYLIN DONIS Ot Z79.899 OTHER RETIREMENT (CURRENT) DRUG THERAPY 10/13/2016 KAYLIN DONIS Ot Z95.5 PRESENCE OF CORONARY ANGIOPLASTY IMPLANT 10/13/2016 KAYLIN DONIS Ot Z96.641 PRESENCE OF RIGHT ARTIFICIAL HIP JOINT 10/30/2016 KAYLIN DONIS Ot E11.9 TYPE 2 DIABETES MELLITUS WITHOUT COMPLIC 10/30/2016 KAYLIN DONIS Ot F17.210 NICOTINE DEPENDENCE, CIGARETTES, UNCOMPL 10/30/2016 KAYLIN DONIS Ot I25.10 ATHSCL HEART DISEASE OF [place] CORONARY 10/30/2016 KAYLIN DONIS Ot S01.511A LACERATION WITHOUT FOREIGN BODY OF LIP, 10/30/2016 KAYLIN DONIS Ot S60.512A ABRASION OF LEFT HAND, INITIAL ENCOUNTER 10/30/2016 KAYLIN DONIS Ot W19.XXXA UNSPECIFIED FALL, INITIAL ENCOUNTER 10/30/2016 KAYLIN DONIS Ot Y99.8 OTHER EXTERNAL CAUSE STATUS 10/30/2016 KAYLIN DONIS Ot Z23 ENCOUNTER FOR IMMUNIZATION 10/30/2016 KAYLIN DONIS Ot Z79.4 RETIREMENT (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 10/30/2016 KAYLIN DONIS Ot Z79.82 INCOME TAX CONSULTANT (CURRENT) USE OF ASPIRIN 10/30/2016 KAYLIN DONIS Ot Z79.899 OTHER INCOME TAX CONSULTANT (CURRENT) DRUG THERAPY 10/30/2016 KAYLIN DONIS L Ot Z95.5 PRESENCE OF CORONARY ANGIOPLASTY IMPLANT 10/30/2016 KAYLIN DONIS L Ot Z96.641 PRESENCE OF RIGHT ARTIFICIAL HIP JOINT 01/14/2017 CONNOR MODI Ot E11.9 TYPE 2 DIABETES MELLITUS WITHOUT COMPLIC 01/14/2017 CONNOR MODIP Ot E78.00 PURE HYPERCHOLESTEROLEMIA, UNSPECIFIED 01/14/2017 CONNOR MODI Ot F41.9 ANXIETY DISORDER, UNSPECIFIED 01/14/2017 CONNOR MODIP Ot I25.10 ATHSCL HEART DISEASE OF [place] CORONARY 01/14/2017 CONNOR MODIP Ot I25.2 OLD MYOCARDIAL INFARCTION 01/14/2017 CONNOR MODIP Ot K21.9 GASTRO-ESOPHAGEAL REFLUX DISEASE WITHOUT 01/14/2017 OCNNOR MODIP Ot M51.36 OTHER INTERVERTEBRAL DISC DEGENERATION, 01/14/2017 CONNOR MODIP Ot M54.5 LOW BACK PAIN 01/14/2017 CONNOR MODIP Ot S39.012A STRAIN OF MUSCLE, FASCIA AND TENDON OF L 01/14/2017 CONNOR MODIP Ot W01.0XXA FALL SAME LEV FROM SLIP/TRIP W/O STRIKE 01/14/2017 CONNOR MODIP Ot Y93.01 ACTIVITY, WALKING, MARCHING AND HIKING 01/14/2017 CONNOR MODIP Ot Z79.4 RETIREMENT (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 01/14/2017 CONNOR MODIP Ot Z79.82 RETIREMENT (CURRENT) USE OF ASPIRIN 01/14/2017 CONNOR MODIP Ot Z80.9 FAMILY HISTORY OF MALIGNANT NEOPLASM, UN 01/14/2017 CONNOR MODIP Ot Z86.73 PRSNL HX OF TIA (TIA), AND CEREB INFRC W 01/14/2017 CONNOR MODIP Ot Z87.19 PERSONAL HISTORY OF OTHER DISEASES OF TH 01/14/2017 CONONR MODIP Ot Z90.710 ACQUIRED ABSENCE OF BOTH CERVIX AND UTER 01/14/2017 CONNOR MODIP Ot Z95.5 PRESENCE OF CORONARY ANGIOPLASTY IMPLANT 01/18/2017 CONNOR MODIP Ot E11.9 TYPE 2 DIABETES MELLITUS WITHOUT COMPLIC 01/18/2017 CONNOR MODIP Ot E78.00 PURE HYPERCHOLESTEROLEMIA, UNSPECIFIED 01/18/2017 LY, CONNOR HOWARDP Ot F41.9 ANXIETY DISORDER, UNSPECIFIED 01/18/2017 LY, CONNOR HOWARDP Ot I25.10 ATHSCL HEART DISEASE OF [place] CORONARY 01/18/2017 LY, CONNOR HOWARDP Ot I25.2 OLD MYOCARDIAL INFARCTION 01/18/2017 LY, CONNOR HOWARDP Ot K21.9 GASTRO-ESOPHAGEAL REFLUX DISEASE WITHOUT 01/18/2017 LYCONNOR Braswell INSTITUTIONAL COMMODITY ANALYST Ot M51.36 OTHER INTERVERTEBRAL DISC DEGENERATION, 01/18/2017 LY, CONNOR HOWARDP Ot M54.5 LOW BACK PAIN 01/18/2017 LY, CONNOR HOWARDP Ot S39.012A STRAIN OF MUSCLE, FASCIA AND TENDON OF L 01/18/2017 LYCONNOR Braswell INSTITUTIONAL COMMODITY ANALYST Ot W01.0XXA FALL SAME LEV FROM SLIP/TRIP W/O STRIKE 01/18/2017 LYCONNOR Braswell INSTITUTIONAL COMMODITY ANALYST Ot Y93.01 ACTIVITY, WALKING, MARCHING AND HIKING 01/18/2017 LYCONNOR Braswell INSTITUTIONAL COMMODITY ANALYST Ot Z79.4 INCOME TAX CONSULTANT (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 01/18/2017 LYCONNOR Braswell INSTITUTIONAL COMMODITY ANALYST Ot Z79.82 RETIREMENT (CURRENT) USE OF ASPIRIN 01/18/2017 LYCONNOR Braswell INSTITUTIONAL COMMODITY ANALYST Ot Z80.9 FAMILY HISTORY OF MALIGNANT NEOPLASM, UN 01/18/2017 LYCONNOR Braswell INSTITUTIONAL COMMODITY ANALYST Ot Z86.73 PRSNL HX OF TIA (TIA), AND CEREB INFRC W 01/18/2017 LY, CONNOR HOWARDP Ot Z87.19 PERSONAL HISTORY OF OTHER DISEASES OF TH 01/18/2017 LYCONNOR Braswell INSTITUTIONAL COMMODITY ANALYST Ot Z90.710 ACQUIRED ABSENCE OF BOTH CERVIX AND UTER 01/18/2017 LY, CONNOR HOWARDP Ot Z95.5 PRESENCE OF CORONARY ANGIOPLASTY IMPLANT 01/26/2017 Ot 250.00 DIAB JEFFY WO COMPL, TYPE II OR UNSPEC TY 01/26/2017 Ot 272.4 HYPERLIPIDEMIA NEC/NOS 01/26/2017 Ot 305.1 TOBACCO USE DISORDER 01/26/2017 Ot 401.9 HYPERTENSION NOS 01/26/2017 Ot 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 [place] CORON 01/26/2017 Ot 433.10 CAROTID ARTERY OCCLUSION W O CEREBRAL IN 01/26/2017 Ot V13.02 PERSONAL HISTORY, URINARY (TRACT) INFECT 01/26/2017 Ot V45.82 PERCUTANEOUS TRANSLUM CORON ANGIOPLASTY 01/26/2017 Ot V58.63 LONG-TERM( CURRENT)USE OF ANTIPLATELET/AN 01/26/2017 Ot V58.67 LONG-TERM ( 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 01/26/2017 Ot V58.69 OTH MED,LT, CURRENT USE 01/26/2017 Ot 433.10 CAROTID ARTERY OCCLUSION W O CEREBRAL IN 01/26/2017 Ot V72.63 PRE- PROCEDURAL LABORATORY EXAMINATION 01/26/2017 Ot V74.8 SCREEN- BACTERIAL DIS NEC 01/26/2017 Ot V67.09 SURGERY FOLLOW-UP, OTHER SURGERY 01/26/2017 Ot 793.82 INCONCLUSIVE MAMMOGRAM 01/26/2017 Ot V76.12 OTH SCREEN MAMMO-MALIGN NEOPLASM OF [place] 01/26/2017 RIDINGS, NEY C SEARCH ENGINE OPTIMIZATION STRATEGIST Ot 719.07 JOINT EFFUSION-ANKLE 01/26/2017 RIDINGS, NEY C SEARCH ENGINE OPTIMIZATION STRATEGIST Ot 719.47 JOINT PAIN-ANKLE 01/26/2017 JOSEY RIDER DO Ot V76.12 OTH SCREEN MAMMO-MALIGN NEOPLASM OF [place] 01/26/2017 Ot V76.12 OTH SCREEN MAMMO-MALIGN NEOPLASM OF [place] 01/26/2017 KYMBERLY DPM, DAVID Q Ot 727.1 BUNION 01/26/2017 KYMBERLY DPM, DAVID Q Ot V72.83 EXAM PRE-OPERATIVE NEC 01/26/2017 ABRAN MARCUM FACC, JOAQUÍN FACP CCDS Ot 272.4 HYPERLIPIDEMIA NEC/NOS 01/26/2017 ABRAN MARCUM FACC, ALI FACP CCDS Ot 401.9 HYPERTENSION NOS 01/26/2017 ABRAN MARCUM FACC, ALI FACP CCDS Ot 414.9 CHR ISCHEMIC HRT DIS NOS 01/26/2017 ABRAN MARCUM FACC, ALI FACP CCDS Ot 433.10 CAROTID ARTERY OCCLUSION W O CEREBRAL IN 01/26/2017 ABRAN MARCUM FACC, JOAQUÍN FACP CCDS Ot 272.4 HYPERLIPIDEMIA NEC/NOS 01/26/2017 ABRAN MARCUM FACC, ALI FACP CCDS Ot 401.9 HYPERTENSION NOS 01/26/2017 ABRAN MARCUM FACC, ALI FACP CCDS Ot 414.9 CHR ISCHEMIC HRT DIS NOS 01/26/2017 ABRAN MARCUM FACC, ALI FACP CCDS Ot 433.10 CAROTID ARTERY OCCLUSION W O CEREBRAL IN 01/26/2017 KYMBERLY DPM, DAVID Q Ot M20.5X2 OTHER DEFORMITIES OF TOE(S) (ACQUIRED), 01/26/2017 KYMBERLY DPDAVID Sood Ot Z01.818 ENCOUNTER FOR OTHER PREPROCEDURAL EXAMIN 01/26/2017 DAVID TRAYLOR DPM Ot L97.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 01/26/2017 JOSEY RIDER DO Ot Z12.31 ENCNTR SCREEN MAMMOGRAM FOR MALIGNANT NE 01/26/2017 JOSEY RIDER DO Ot R92.8 OTH ABN AND INCONCLUSIVE FINDINGS ON DX 01/26/2017 ANAYELI DICKENS INSTITUTIONAL COMMODITY ANALYST Ot I65.23 OCCLUSION AND STENOSIS OF BILATERAL NG 01/26/2017 ANAYELI DICKENS INSTITUTIONAL COMMODITY ANALYST Ot Z53.9 PROCEDURE AND TREATMENT NOT CARRIED OUT, 01/26/2017 ANAYELI DICKENS INSTITUTIONAL COMMODITY ANALYST Ot E78.4 OTHER HYPERLIPIDEMIA 01/26/2017 ANAYELI DICKENS INSTITUTIONAL COMMODITY ANALYST Ot I65.23 OCCLUSION AND STENOSIS OF BILATERAL NG 01/26/2017 JOSEY RIDER DO Ot R92.8 OTH ABN AND INCONCLUSIVE FINDINGS ON DX 01/26/2017 ANAYELI DICKENS INSTITUTIONAL COMMODITY ANALYST Ot E78.4 OTHER HYPERLIPIDEMIA 01/26/2017 ANAYELI DICKENS INSTITUTIONAL COMMODITY ANALYST Ot I25.10 ATHSCL HEART DISEASE OF [place] CORONARY 01/26/2017 JOSEY RIDER DO Ot R15.9 FULL INCONTINENCE OF FECES 01/26/2017 JOSEY RIDER DO Ot R32 UNSPECIFIED URINARY INCONTINENCE 01/26/2017 JOSEY RIDER DO, Ot R92.8 OTH ABN AND INCONCLUSIVE FINDINGS ON DX 01/26/2017 ANAYELI DICKENS INSTITUTIONAL COMMODITY ANALYST Ot E78.4 OTHER HYPERLIPIDEMIA 01/26/2017 ANAYELI DICKENS INSTITUTIONAL COMMODITY ANALYST Ot I10 ESSENTIAL (PRIMARY) HYPERTENSION 01/26/2017 ANAYELI DICKENS INSTITUTIONAL COMMODITY ANALYST Ot I25.10 ATHSCL HEART DISEASE OF [place] CORONARY 01/29/2017 JOSEY RIDER DO Ot R19.7 DIARRHEA, UNSPECIFIED 01/29/2017 GALINA MARCUM, PRAKASH Diaz Ot S32.010A WEDGE COMPRESSION FRACTURE OF FIRST LUMB 01/29/2017 GALINA MARCUM, PRAKASH Diaz Ot X58.XXXA EXPOSURE TO OTHER SPECIFIED FACTORS, INI 01/29/2017 GALINA MARCUM, PRAKASH Z Ot Y99.8 OTHER EXTERNAL CAUSE STATUS 01/29/2017 GALINA MARCUM, PRAKASH Z Ot Z01.818 ENCOUNTER FOR OTHER PREPROCEDURAL EXAMIN 01/29/2017 JOSEY RIDER DO Ot S32.010A WEDGE COMPRESSION FRACTURE OF FIRST LUMB 01/29/2017 JOSEY RIDER DO Ot W19.XXXA UNSPECIFIED FALL, INITIAL ENCOUNTER 01/29/2017 JOSEY RIDER DO Ot Y99.8 OTHER EXTERNAL CAUSE STATUS 02/01/2017 JOSEY RIDER DO Ot 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, NEC, LUMBAR REGION, 02/02/2017 Ot 250.00 DIAB JEFFY WO COMPL, TYPE II OR UNSPEC TY 02/02/2017 Ot 272.4 HYPERLIPIDEMIA NEC/NOS 02/02/2017 Ot 305.1 TOBACCO USE DISORDER 02/02/2017 Ot 401.9 HYPERTENSION NOS 02/02/2017 Ot 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 [place] CORON 02/02/2017 Ot 433.10 CAROTID ARTERY OCCLUSION W O CEREBRAL IN 02/02/2017 Ot V13.02 PERSONAL HISTORY, URINARY (TRACT) INFECT 02/02/2017 Ot V45.82 PERCUTANEOUS TRANSLUM CORON ANGIOPLASTY 02/02/2017 Ot V58.63 LONG-TERM( CURRENT)USE OF ANTIPLATELET/AN 02/02/2017 Ot V58.67 LONG-TERM ( 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 02/02/2017 Ot V58.69 OTH MED,LT, CURRENT USE 02/02/2017 Ot 433.10 CAROTID ARTERY OCCLUSION W O CEREBRAL IN 02/02/2017 Ot V72.63 PRE- PROCEDURAL LABORATORY EXAMINATION 02/02/2017 Ot V74.8 SCREEN- BACTERIAL DIS NEC 02/02/2017 Ot V67.09 SURGERY FOLLOW-UP, OTHER SURGERY 02/02/2017 Ot 793.82 INCONCLUSIVE MAMMOGRAM 02/02/2017 Ot V76.12 OTH SCREEN MAMMO-MALIGN NEOPLASM OF [place] 02/02/2017 RIDINGSNEY C SEARCH ENGINE OPTIMIZATION STRATEGIST Ot 719.07 JOINT EFFUSION-ANKLE 02/02/2017 RIDINGSNEY C SEARCH ENGINE OPTIMIZATION STRATEGIST Ot 719.47 JOINT PAIN-ANKLE 02/02/2017 JOSEY RIDER DO Ot V76.12 OTH SCREEN MAMMO-MALIGN NEOPLASM OF [place] 02/02/2017 Ot V76.12 OTH SCREEN MAMMO-MALIGN NEOPLASM OF [place] 02/02/2017 KYMBERLY DPIndigo, DAVID Q Ot 727.1 BUNION 02/02/2017 KYMBERLY DPIndigo, DAVID Q Ot V72.83 EXAM PRE-OPERATIVE NEC 02/02/2017 ABRAN MARCUM FACC, ALI FACP CCDS Ot 272.4 HYPERLIPIDEMIA NEC/NOS 02/02/2017 ABRAN MARCUM FACC, ALI FACP CCDS Ot 401.9 HYPERTENSION NOS 02/02/2017 ABRAN MARCUM FACC, ALI FACP CCDS Ot 414.9 CHR ISCHEMIC HRT DIS NOS 02/02/2017 ABRAN MARCUM FACC, ALI FACP CCDS Ot 433.10 CAROTID ARTERY OCCLUSION W O CEREBRAL IN 02/02/2017 ABRAN MARCUM FACC, ALI FACP CCDS Ot 272.4 HYPERLIPIDEMIA NEC/NOS 02/02/2017 ABRAN MARCUM FACC, ALI FACP CCDS Ot 401.9 HYPERTENSION NOS 02/02/2017 ABRAN MARCUM FACC, ALI FACP CCDS Ot 414.9 CHR ISCHEMIC HRT DIS NOS 02/02/2017 ABRAN MARCUM FACC, ALI FACP CCDS Ot 433.10 CAROTID ARTERY OCCLUSION W O CEREBRAL IN 02/02/2017 KYMBERLY DPIndigo, DAVID Q Ot M20.5X2 OTHER DEFORMITIES OF TOE(S) (ACQUIRED), 02/02/2017 KYMBERLY DPIndigo, DAVID Q Ot Z01.818 ENCOUNTER FOR OTHER PREPROCEDURAL EXAMIN 02/02/2017 KYMBERLY DPAJAY SoodIN Q Ot L97.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 02/02/2017 JOSEY RIDER DO Ot Z12.31 ENCNTR SCREEN MAMMOGRAM FOR MALIGNANT NE 02/02/2017 JOSEY RIDER DO Ot R92.8 OTH ABN AND INCONCLUSIVE FINDINGS ON DX 02/02/2017 ANAYELI DICKENSP Ot I65.23 OCCLUSION AND STENOSIS OF BILATERAL NG 02/02/2017 ANAYELI DICKENSP Ot Z53.9 PROCEDURE AND TREATMENT NOT CARRIED OUT, 02/02/2017 ANAYELI DICKENSP Ot E78.4 OTHER HYPERLIPIDEMIA 02/02/2017 ANAYELI DICKENS INSTITUTIONAL COMMODITY ANALYST Ot I65.23 OCCLUSION AND STENOSIS OF BILATERAL NG 02/02/2017 JOSEY RIDER DO Ot R92.8 OTH ABN AND INCONCLUSIVE FINDINGS ON DX 02/02/2017 CHRISSIE ANAYELIHER Hilton COHN Ot E78.4 OTHER HYPERLIPIDEMIA 02/02/2017 ANAYELI DICKENS Ot I25.10 ATHSCL HEART DISEASE OF [place] CORONARY 02/02/2017 JOSEY RIDER DO Ot R15.9 FULL INCONTINENCE OF FECES 02/02/2017 JOSEY RIDER DO Ot R32 UNSPECIFIED URINARY INCONTINENCE 02/02/2017 JOSEY RIDER DO Ot R92.8 OTH ABN AND INCONCLUSIVE FINDINGS ON DX 02/02/2017 ANAYELI DICKENS Ot E78.4 OTHER HYPERLIPIDEMIA 02/02/2017 ANAYELI DICKENS Ot I10 ESSENTIAL (PRIMARY) HYPERTENSION 02/02/2017 ANAYELI DICKENS Ot I25.10 ATHSCL HEART DISEASE OF [place] CORONARY 02/02/2017 JOSEY RIDER DO Ot 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, NEC, LUMBAR REGION, 02/02/2017 JOSEY RIDER DO Ot S32.010A WEDGE COMPRESSION FRACTURE OF FIRST LUMB 02/02/2017 JOSEY RIDER DO Ot W19.XXXA UNSPECIFIED FALL, INITIAL ENCOUNTER 02/02/2017 JOSEY RIDER DO Ot Y99.8 OTHER EXTERNAL CAUSE STATUS 02/02/2017 ANAYELI DICKENS Ot E78.4 OTHER HYPERLIPIDEMIA 02/02/2017 GALINA MARCUM PRAKASH Z Ot E11.9 TYPE 2 DIABETES MELLITUS WITHOUT COMPLIC 02/02/2017 GALINA MARCUM PRAKASH Z Ot E78.4 OTHER HYPERLIPIDEMIA 02/02/2017 GALINA MARCUM PRAKASH Z Ot F03.90 UNSPECIFIED DEMENTIA WITHOUT BEHAVIORAL 02/02/2017 GALINA MARCUM PRAKASH Z Ot F17.210 NICOTINE DEPENDENCE, CIGARETTES, UNCOMPL 02/02/2017 GALINA MARCUM PRAKASH Z Ot F41.9 ANXIETY DISORDER, UNSPECIFIED 02/02/2017 GALINA MARCUM PRAKASH Z Ot I10 ESSENTIAL (PRIMARY) HYPERTENSION 02/02/2017 GALINA MARCUM PRAKASH Z Ot I25.10 ATHSCL HEART DISEASE OF [place] CORONARY 02/02/2017 GALINA MARCUM PRAKASH Z Ot I65.23 OCCLUSION AND STENOSIS OF BILATERAL NG 02/02/2017 GALINA MARCUM PRAKASH Z Ot K21.9 GASTRO-ESOPHAGEAL REFLUX DISEASE WITHOUT 02/02/2017 GALINA MARCUM PRAKASH Z Ot S32.010A WEDGE COMPRESSION FRACTURE OF FIRST LUMB 02/02/2017 KAMLESH MOJICA MDIQ Z Ot X58.XXXA EXPOSURE TO OTHER SPECIFIED FACTORS, INI 02/02/2017 GALINA MARCUM PRAKASH Z Ot Y99.8 OTHER EXTERNAL CAUSE STATUS 02/02/2017 KAMLESH MOJICA MDIQ Z Ot Z79.4 RETIREMENT (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 02/02/2017 GALINA MARCUM PRAKASH Z Ot Z79.899 OTHER RETIREMENT (CURRENT) DRUG THERAPY 02/02/2017 GALINA MARCUM PRAKASH Z Ot Z95.5 PRESENCE OF CORONARY ANGIOPLASTY IMPLANT 02/03/2017 JOSEY RIDER DO Ot S32.010A WEDGE COMPRESSION FRACTURE OF FIRST LUMB 02/03/2017 JOSEY RIDER DO Ot W19.XXXA UNSPECIFIED FALL, INITIAL ENCOUNTER 02/03/2017 JOSEY RIDER DO Ot Y99.8 OTHER EXTERNAL CAUSE STATUS 02/03/2017 ANAYELI DICKENS Ot E78.4 OTHER HYPERLIPIDEMIA 02/03/2017 ANAYELI DICKENS INSTITUTIONAL COMMODITY ANALYST Ot I10 ESSENTIAL (PRIMARY) HYPERTENSION 02/03/2017 ANAYELI DICKENS Ot I25.10 ATHSCL HEART DISEASE OF [place] CORONARY 02/03/2017 ANAYELI DICKENSP Ot I65.23 OCCLUSION AND STENOSIS OF BILATERAL NG 02/04/2017 GALINA MARCUM PRAKASH Z Ot E11.9 TYPE 2 DIABETES MELLITUS WITHOUT COMPLIC 02/04/2017 GALINA MACRUM PRAKASH Z Ot F03.90 UNSPECIFIED DEMENTIA WITHOUT BEHAVIORAL 02/04/2017 GALINA MARCUM PRAKASH Z Ot F17.210 NICOTINE DEPENDENCE, CIGARETTES, UNCOMPL 02/04/2017 GALINA MARCUM PRAKASH Z Ot F41.9 ANXIETY DISORDER, UNSPECIFIED 02/04/2017 GALINA MARCUM PRAKASH Z Ot I10 ESSENTIAL (PRIMARY) HYPERTENSION 02/04/2017 GALINA MARCUM PRAKASH Z Ot I25.10 ATHSCL HEART DISEASE OF [place] CORONARY 02/04/2017 GALINA MARCUM PRAKASH Z Ot K21.9 GASTRO-ESOPHAGEAL REFLUX DISEASE WITHOUT 02/04/2017 GALINA MARCUM PRAKASH Z Ot S32.010A WEDGE COMPRESSION FRACTURE OF FIRST LUMB 02/04/2017 GALINA MARCUM PRAKASH Z Ot X58.XXXA EXPOSURE TO OTHER SPECIFIED FACTORS, INI 02/04/2017 GALINA MARCUM PRAKASH Z Ot Y99.8 OTHER EXTERNAL CAUSE STATUS 02/04/2017 GALINA MARCUM PRAKASH Z Ot Z79.4 INCOME TAX CONSULTANT (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 02/04/2017 GALINA MARCUM PRAKASH Z Ot Z79.899 OTHER RETIREMENT (CURRENT) DRUG THERAPY 02/04/2017 GALINA MARCUM PRAKASH Z Ot Z95.5 PRESENCE OF CORONARY ANGIOPLASTY IMPLANT 02/04/2017 CARMEN RAMIREZ DO Ot N39.0 URINARY TRACT INFECTION, SITE NOT SPECIF 02/05/2017 ANAYELI DICKENS INSTITUTIONAL COMMODITY ANALYST Ot E78.4 OTHER HYPERLIPIDEMIA 02/05/2017 ANAYELI DICKENS INSTITUTIONAL COMMODITY ANALYST Ot I10 ESSENTIAL (PRIMARY) HYPERTENSION 02/05/2017 ANAYELI DICKENS INSTITUTIONAL COMMODITY ANALYST Ot I25.10 ATHSCL HEART DISEASE OF [place] CORONARY 02/05/2017 ANAYELI DICKENS INSTITUTIONAL COMMODITY ANALYST Ot I65.23 OCCLUSION AND STENOSIS OF BILATERAL NG 02/05/2017 YANELY RAMIREZ DOI Ot E11.9 TYPE 2 DIABETES MELLITUS WITHOUT COMPLIC 02/05/2017 YANELY RAMIREZ DOI Ot E78.00 PURE HYPERCHOLESTEROLEMIA, UNSPECIFIED 02/05/2017 JAMES BARRERA CARMEN Ot E87.1 HYPO-OSMOLALITY AND HYPONATREMIA 02/05/2017 YANELY RAMIREZ DOI Ot F03.90 UNSPECIFIED DEMENTIA WITHOUT BEHAVIORAL 02/05/2017 YANELY RAMIREZ DOI Ot F17.210 NICOTINE DEPENDENCE, CIGARETTES, UNCOMPL 02/05/2017 YANELY RAMIREZ DOI Ot F32.9 MAJOR DEPRESSIVE DISORDER, SINGLE EPISOD 02/05/2017 YANELY RAMIREZ DOI Ot F41.9 ANXIETY DISORDER, UNSPECIFIED 02/05/2017 YANELY RAMIREZ DOI Ot I25.10 ATHSCL HEART DISEASE OF [place] CORONARY 02/05/2017 YANELY RAMIREZ DOI Ot I25.2 OLD MYOCARDIAL INFARCTION 02/05/2017 YANELY RAMIREZ DOI Ot K21.9 GASTRO-ESOPHAGEAL REFLUX DISEASE WITHOUT 02/05/2017 YANELY RAMIREZ DOI Ot M19.91 PRIMARY OSTEOARTHRITIS, UNSPECIFIED SITE 02/05/2017 CARMEN RAMIREZ DO Ot M81.0 AGE-RELATED OSTEOPOROSIS W/O CURRENT PAT 02/05/2017 CARMEN RAMIREZ DO Ot N39.0 URINARY TRACT INFECTION, SITE NOT SPECIF 02/05/2017 CARMEN RAMIREZ DO Ot R11.0 NAUSEA 02/05/2017 CARMEN RAMIREZ DO Ot R41.0 DISORIENTATION, UNSPECIFIED 02/05/2017 CARMEN RAMIREZ DO Ot Z16.30 RESISTANCE TO UNSPECIFIED ANTIMICROBIAL 02/05/2017 YANELY RAMIREZ DOI Ot Z79.4 INCOME TAX CONSULTANT (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 02/05/2017 YANELY RAMIREZ DOI Ot Z79.891 INCOME TAX CONSULTANT (CURRENT) USE OF OPIATE ANALGE 02/05/2017 YANELY RAMIREZ DOI Ot Z86.73 PRSNL HX OF TIA (TIA), AND CEREB INFRC W 02/05/2017 YANELY RAMIREZ DOI Ot Z95.5 PRESENCE OF CORONARY ANGIOPLASTY IMPLANT 02/11/2017 GALINA MARCUM PRAKASH Z Ot E11.9 TYPE 2 DIABETES MELLITUS WITHOUT COMPLIC 02/11/2017 GALINA MARCUM PRAKASH Z Ot F03.90 UNSPECIFIED DEMENTIA WITHOUT BEHAVIORAL 02/11/2017 GALINA MARCUM PRAKASH Z Ot F17.210 NICOTINE DEPENDENCE, CIGARETTES, UNCOMPL 02/11/2017 GALINA MARUCM PRAKASH Z Ot F41.9 ANXIETY DISORDER, UNSPECIFIED 02/11/2017 GALINA MARCUM PRAKASH Z Ot I10 ESSENTIAL (PRIMARY) HYPERTENSION 02/11/2017 GALINA MARCUM PRAKASH Z Ot I25.10 ATHSCL HEART DISEASE OF [place] CORONARY 02/11/2017 GALINA MARCUM PRAKASH Z Ot K21.9 GASTRO-ESOPHAGEAL REFLUX DISEASE WITHOUT 02/11/2017 GALINA MARCUM PRAKASH Z Ot S32.010A WEDGE COMPRESSION FRACTURE OF FIRST LUMB 02/11/2017 GALINA MARCUM PRAKASH Z Ot X58.XXXA EXPOSURE TO OTHER SPECIFIED FACTORS, INI 02/11/2017 GALINA MARCUM PRAKASH Z Ot Y99.8 OTHER EXTERNAL CAUSE STATUS 02/11/2017 GALINA MARCUM PRAKASH Z Ot Z79.4 RETIREMENT (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 02/11/2017 GALINA MARCUM PRAKASH Z Ot Z79.899 OTHER INCOME TAX CONSULTANT (CURRENT) DRUG THERAPY 02/11/2017 GALINA MARCUM PRAKASH Z Ot Z95.5 PRESENCE OF CORONARY ANGIOPLASTY IMPLANT 02/17/2017 JOSEY RIDER DO Ot N32.3 DIVERTICULUM OF BLADDER 02/17/2017 JOSEY RIDER DO Ot N32.89 OTHER SPECIFIED DISORDERS OF BLADDER 02/17/2017 GALINA MARCUM PRAKASH Z Ot E11.9 TYPE 2 DIABETES MELLITUS WITHOUT COMPLIC 02/17/2017 GALINA MARCUM PRAKASH Z Ot F03.90 UNSPECIFIED DEMENTIA WITHOUT BEHAVIORAL 02/17/2017 GALINA MARCUM PRAKSAH Z Ot F17.210 NICOTINE DEPENDENCE, CIGARETTES, UNCOMPL 02/17/2017 GALINA MARCUM PRAKASH Z Ot F41.9 ANXIETY DISORDER, UNSPECIFIED 02/17/2017 GALINA MARCUM PRAKASH Z Ot I10 ESSENTIAL (PRIMARY) HYPERTENSION 02/17/2017 GALINA MARCUM PRAKASH Z Ot I25.10 ATHSCL HEART DISEASE OF [place] CORONARY 02/17/2017 GALINA MARCUM PRAKASH Z Ot K21.9 GASTRO-ESOPHAGEAL REFLUX DISEASE WITHOUT 02/17/2017 GALINA MARCUM PRAKASH Z Ot S32.010A WEDGE COMPRESSION FRACTURE OF FIRST LUMB 02/17/2017 GALINA MARCUM PRAKASH Z Ot X58.XXXA EXPOSURE TO OTHER SPECIFIED FACTORS, INI 02/17/2017 KAMLESH MOJICA MDIQ Z Ot Y99.8 OTHER EXTERNAL CAUSE STATUS 02/17/2017 GALINA MARCUM PRAKASH Z Ot Z79.4 INCOME TAX CONSULTANT (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 02/17/2017 GALINA MARCUM PRAKASH Z Ot Z79.899 OTHER RETIREMENT (CURRENT) DRUG THERAPY 02/17/2017 GALINA MARCUM PRAKASH Z Ot Z95.5 PRESENCE OF CORONARY ANGIOPLASTY IMPLANT 02/18/2017 JOSEY RIDER DO Ot 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, NEC, LUMBAR REGION, 02/18/2017 JOSEY RIDER DO Ot S32.010A WEDGE COMPRESSION FRACTURE OF FIRST LUMB 02/18/2017 JOSEY RIDER DO Ot W19.XXXA UNSPECIFIED FALL, INITIAL ENCOUNTER 02/18/2017 JOSEY RIDER DO Ot Y99.8 OTHER EXTERNAL CAUSE STATUS 02/23/2017 ANAYELI DICKENS Ot E78.4 OTHER HYPERLIPIDEMIA 02/23/2017 BAIMAANAYELI L INSTITUTIONAL COMMODITY ANALYST Ot I10 ESSENTIAL (PRIMARY) HYPERTENSION 02/23/2017 BAIMAANAYELI L INSTITUTIONAL COMMODITY ANALYST Ot I25.10 ATHSCL HEART DISEASE OF [place] CORONARY 02/23/2017 BAIMAANAYELI L INSTITUTIONAL COMMODITY ANALYST Ot I65.23 OCCLUSION AND STENOSIS OF BILATERAL NG 02/25/2017 BAIMAANAYELI L INSTITUTIONAL COMMODITY ANALYST Ot E78.4 OTHER HYPERLIPIDEMIA 02/25/2017 BAIMA ANAYELI L INSTITUTIONAL COMMODITY ANALYST Ot I10 ESSENTIAL (PRIMARY) HYPERTENSION 02/25/2017 BAIMA ANAYELI L INSTITUTIONAL COMMODITY ANALYST Ot I25.10 ATHSCL HEART DISEASE OF [place] CORONARY 02/25/2017 BAIMAANNEANAYELI L INSTITUTIONAL COMMODITY ANALYST Ot I34.0 NONRHEUMATIC MITRAL (VALVE) INSUFFICIENC 02/25/2017 BAIMAANNEANAYELI L INSTITUTIONAL COMMODITY ANALYST Ot I35.8 OTHER NONRHEUMATIC AORTIC VALVE DISORDER 02/25/2017 BAIMAANAYELI L INSTITUTIONAL COMMODITY ANALYST Ot 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 02/25/2017 BAIMAANNEANAYELI L INSTITUTIONAL COMMODITY ANALYST Ot 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 03/01/2017 JOSEY RIDER DO Ot 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9 TYPE 2 DIABETES MELLITUS WITHOUT COMPLIC 03/02/2017 LOYDA MCKEON MD Ot E78.00 PURE HYPERCHOLESTEROLEMIA, UNSPECIFIED 03/02/2017 LOYDA MCKEON MD Ot F03.90 UNSPECIFIED DEMENTIA WITHOUT BEHAVIORAL 03/02/2017 LOYDA MCKEON MD Ot F17.210 NICOTINE DEPENDENCE, CIGARETTES, UNCOMPL 03/02/2017 LOYDA MCKEON MD Ot I25.10 ATHSCL HEART DISEASE OF [place] CORONARY 03/02/2017 LOYDA MCKEON MD Ot I25.2 OLD MYOCARDIAL INFARCTION 03/02/2017 LOYDA MCKEON MD Ot I95.9 HYPOTENSION, UNSPECIFIED 03/02/2017 LOYDA MCKEON MD Ot N39.0 URINARY TRACT INFECTION, SITE NOT SPECIF 03/02/2017 LOYDA MCKEON MD Ot S00.03XA CONTUSION OF SCALP, INITIAL ENCOUNTER 03/02/2017 LOYDA MCKEON MD Ot S01.21XA LACERATION WITHOUT FOREIGN BODY OF NOSE, 03/02/2017 LOYDA MCKEON MD, Ot W19.XXXA UNSPECIFIED FALL, INITIAL ENCOUNTER 03/02/2017 LOYDA MCKEON MD, Ot Z79.4 RETIREMENT (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 03/02/2017 LOYDA MCKEON MD, Ot Z79.82 RETIREMENT (CURRENT) USE OF ASPIRIN 03/02/2017 LOYDA MCKEON MD, Ot Z86.73 PRSNL HX OF TIA (TIA), AND CEREB INFRC W 03/02/2017 LOYDA MCKEON MD, Ot Z90.49 ACQUIRED ABSENCE OF OTHER SPECIFIED PART 03/02/2017 LOYDA MCKEON MD, Ot Z90.710 ACQUIRED ABSENCE OF BOTH CERVIX AND UTER 03/02/2017 LOYDA MCKEON MD, Ot Z95.5 PRESENCE OF CORONARY ANGIOPLASTY IMPLANT 03/02/2017 JOSEY RIDER DO, Ot S32.010A WEDGE COMPRESSION FRACTURE OF FIRST LUMB 03/02/2017 JOSEY RIDER DO, Ot W19.XXXA UNSPECIFIED FALL, INITIAL ENCOUNTER 03/02/2017 JOSEY RIDER DO, Ot Y99.8 OTHER EXTERNAL CAUSE STATUS 03/03/2017 ANAYELI DICKENS Ot E78.4 OTHER HYPERLIPIDEMIA 03/03/2017 ANAYELI DICKENS Ot I10 ESSENTIAL (PRIMARY) HYPERTENSION 03/03/2017 ANAYELI DICKENS Ot I25.10 ATHSCL HEART DISEASE OF [place] CORONARY 03/03/2017 ANAYELI DICKENS Ot I65.23 OCCLUSION AND STENOSIS OF BILATERAL NG 03/04/2017 JOSEY RIDER DO, Ot S32.010D WEDGE COMPRSN FX FIRST LUM VERT, SUBS FO 03/04/2017 JOSEY RIDER DO, Ot Z09 ENCNTR FOR F/U EXAM AFT TRTMT FOR COND O 03/09/2017 JOSEY RIDER DO, Ot N32.3 DIVERTICULUM OF BLADDER 03/09/2017 JOSEY RIDER DO, Ot N32.89 OTHER SPECIFIED DISORDERS OF BLADDER 03/12/2017 JOSEY RIDER DO, Ot S32.000S WEDGE COMPRESSION FRACTURE OF UNSP LUMBA 03/18/2017 ANAYELI DICKENS Ot E78.4 OTHER HYPERLIPIDEMIA 03/18/2017 ANAYELI DICKENS Ot I10 ESSENTIAL (PRIMARY) HYPERTENSION 03/18/2017 ANAYELI DICKENS Ot I25.10 ATHSCL HEART DISEASE OF [place] CORONARY 03/18/2017 ANAYELI DICKENS Ot I34.0 NONRHEUMATIC MITRAL (VALVE) INSUFFICIENC 03/18/2017 ANAYELI DICKENSP Ot I35.8 OTHER NONRHEUMATIC AORTIC VALVE DISORDER 03/18/2017 ANAYELI DICKENS Ot 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 03/18/2017 ANAYELI DICKENS Ot 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 03/19/2017 JOSEY RIDER DO Ot N32.3 DIVERTICULUM OF BLADDER 03/19/2017 JOSEY RIDER DO Ot N32.89 OTHER SPECIFIED DISORDERS OF BLADDER 03/31/2017 Ot 250.00 DIAB JEFFY WO COMPL, TYPE II OR UNSPEC TY 03/31/2017 Ot 272.4 HYPERLIPIDEMIA NEC/NOS 03/31/2017 Ot 305.1 TOBACCO USE DISORDER 03/31/2017 Ot 401.9 HYPERTENSION NOS 03/31/2017 Ot 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 [place] CORON 03/31/2017 Ot 433.10 CAROTID ARTERY OCCLUSION W O CEREBRAL IN 03/31/2017 Ot V13.02 PERSONAL HISTORY, URINARY (TRACT) INFECT 03/31/2017 Ot V45.82 PERCUTANEOUS TRANSLUM CORON ANGIOPLASTY 03/31/2017 Ot V58.63 LONG-TERM( CURRENT)USE OF ANTIPLATELET/AN 03/31/2017 Ot V58.67 LONG-TERM ( 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 03/31/2017 Ot V58.69 OTH MED,LT, CURRENT USE 03/31/2017 Ot 433.10 CAROTID ARTERY OCCLUSION W O CEREBRAL IN 03/31/2017 Ot V72.63 PRE- PROCEDURAL LABORATORY EXAMINATION 03/31/2017 Ot V74.8 SCREEN- BACTERIAL DIS NEC 03/31/2017 Ot V67.09 SURGERY FOLLOW-UP, OTHER SURGERY 03/31/2017 Ot 793.82 INCONCLUSIVE MAMMOGRAM 03/31/2017 Ot V76.12 OTH SCREEN MAMMO-MALIGN NEOPLASM OF [place] 03/31/2017 NEY ASTUDILLO SEARCH ENGINE OPTIMIZATION STRATEGIST Ot 719.07 JOINT EFFUSION-ANKLE 03/31/2017 NEY ASTUDILLO SEARCH ENGINE OPTIMIZATION STRATEGIST Ot 719.47 JOINT PAIN-ANKLE 03/31/2017 JOSEY RIDER DO Ot V76.12 OTH SCREEN MAMMO-MALIGN NEOPLASM OF [place] 03/31/2017 Ot V76.12 OTH SCREEN MAMMO-MALIGN NEOPLASM OF [place] 03/31/2017 DAVID TRAYLOR DPM Ot 727.1 BUNION 03/31/2017 DAVID TRAYLOR DPM Q Ot V72.83 EXAM PRE-OPERATIVE NEC 03/31/2017 ABRAN MARCUM FACC, ALI FACP CCDS Ot 272.4 HYPERLIPIDEMIA NEC/NOS 03/31/2017 ABRAN MARCUM FACC, ALI FACP CCDS Ot 401.9 HYPERTENSION NOS 03/31/2017 ABRAN MARCUM FACC, ALI FACP CCDS Ot 414.9 CHR ISCHEMIC HRT DIS NOS 03/31/2017 ABRAN MARCUM FACLai, ALI FACP CCDS Ot 433.10 CAROTID ARTERY OCCLUSION W O CEREBRAL IN 03/31/2017 ABRAN MARCUM FACLai, ALI FACP CCDS Ot 272.4 HYPERLIPIDEMIA NEC/NOS 03/31/2017 ABRAN MARCUM FACC, ALI FACP CCDS Ot 401.9 HYPERTENSION NOS 03/31/2017 ABRAN MARCUM FACC, ALI FACP CCDS Ot 414.9 CHR ISCHEMIC HRT DIS NOS 03/31/2017 ABRAN MARCUM FACC, ALI FACP CCDS Ot 433.10 CAROTID ARTERY OCCLUSION W O CEREBRAL IN 03/31/2017 DAVID TRAYLOR DPM Ot M20.5X2 OTHER DEFORMITIES OF TOE(S) (ACQUIRED), 03/31/2017 DAVID TRAYLOR DPM Q Ot Z01.818 ENCOUNTER FOR OTHER PREPROCEDURAL EXAMIN 03/31/2017 DAVID TRAYLOR DPM Ot L97.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 03/31/2017 JOSEY RIDER DO Ot Z12.31 ENCNTR SCREEN MAMMOGRAM FOR MALIGNANT NE 03/31/2017 JOSEY RIDER DO Ot R92.8 OTH ABN AND INCONCLUSIVE FINDINGS ON DX 03/31/2017 ANAYELI DICKENS Ot I65.23 OCCLUSION AND STENOSIS OF BILATERAL NG 03/31/2017 ANAYELI DICKENSP Ot Z53.9 PROCEDURE AND TREATMENT NOT CARRIED OUT, 03/31/2017 ANAYELI DICKENS Ot E78.4 OTHER HYPERLIPIDEMIA 03/31/2017 ANAYELI DICKENSP Ot I65.23 OCCLUSION AND STENOSIS OF BILATERAL NG 03/31/2017 JOSEY RIDER DO Ot R92.8 OTH ABN AND INCONCLUSIVE FINDINGS ON DX 03/31/2017 ANAYELI DICKENS Ot E78.4 OTHER HYPERLIPIDEMIA 03/31/2017 ANAYELI DICKENS Ot I25.10 ATHSCL HEART DISEASE OF [place] CORONARY 03/31/2017 JOSEY RIDER DO Ot R15.9 FULL INCONTINENCE OF FECES 03/31/2017 JOSEY RIDER DO Ot R32 UNSPECIFIED URINARY INCONTINENCE 03/31/2017 JOSEY RIDER DO, Ot R92.8 OTH ABN AND INCONCLUSIVE FINDINGS ON DX 03/31/2017 ANAYELI DICKENS Ot E78.4 OTHER HYPERLIPIDEMIA 03/31/2017 ANAYELI DICKENS Ot I10 ESSENTIAL (PRIMARY) HYPERTENSION 03/31/2017 ANAYELI DICKENS Ot I25.10 ATHSCL HEART DISEASE OF [place] CORONARY 03/31/2017 JOSEY RIDER DO Ot 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, NEC, LUMBAR REGION, 03/31/2017 JOSEY RIDER DO Ot S32.010A WEDGE COMPRESSION FRACTURE OF FIRST LUMB 03/31/2017 JOSEY RIDER DO Ot W19.XXXA UNSPECIFIED FALL, INITIAL ENCOUNTER 03/31/2017 JOSEY RIDER DO Ot Y99.8 OTHER EXTERNAL CAUSE STATUS 03/31/2017 ANAYELI DICKENS Ot E78.4 OTHER HYPERLIPIDEMIA 03/31/2017 ANAYELI DICKENS Ot I10 ESSENTIAL (PRIMARY) HYPERTENSION 03/31/2017 ANAYELI DICKENS Ot I25.10 ATHSCL HEART DISEASE OF [place] CORONARY 03/31/2017 ANAYELI DICKENS Ot I65.23 OCCLUSION AND STENOSIS OF BILATERAL NG 03/31/2017 JOSEY RIDER DO Ot N32.3 DIVERTICULUM OF BLADDER 03/31/2017 JOSEY RIDER DO Ot N32.89 OTHER SPECIFIED DISORDERS OF BLADDER 03/31/2017 JOSEY RIDER DO, Ot S32.010D WEDGE COMPRSN FX FIRST LUM VERT, SUBS FO 03/31/2017 JOSEY RIDER DO, Ot Z09 ENCNTR FOR F/U EXAM AFT TRTMT FOR COND O 03/31/2017 ANAYELI DICKENS L INSTITUTIONAL COMMODITY ANALYST Ot E78.4 OTHER HYPERLIPIDEMIA 03/31/2017 BAIMA ANAYELI L INSTITUTIONAL COMMODITY ANALYST Ot I10 ESSENTIAL (PRIMARY) HYPERTENSION 03/31/2017 BAIMA ANAYELI L INSTITUTIONAL COMMODITY ANALYST Ot I25.10 ATHSCL HEART DISEASE OF [place] CORONARY 03/31/2017 BAIMA ANAYELI L INSTITUTIONAL COMMODITY ANALYST Ot I34.0 NONRHEUMATIC MITRAL (VALVE) INSUFFICIENC 03/31/2017 BAIMA ANAYELI L INSTITUTIONAL COMMODITY ANALYST Ot I35.8 OTHER NONRHEUMATIC AORTIC VALVE DISORDER 03/31/2017 BAIMAANNEANAYELI L INSTITUTIONAL COMMODITY ANALYST Ot 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 03/31/2017 BAIMA ANAYELI L INSTITUTIONAL COMMODITY ANALYST Ot 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 03/31/2017 BAIMA ANAYELI L INSTITUTIONAL COMMODITY ANALYST Ot E34.0 CARCINOID SYNDROME 03/31/2017 BAIMA ANAYELI L INSTITUTIONAL COMMODITY ANALYST Ot E78.4 OTHER HYPERLIPIDEMIA 03/31/2017 BAIMA, ANAYELI L INSTITUTIONAL COMMODITY ANALYST Ot I10 ESSENTIAL (PRIMARY) HYPERTENSION 03/31/2017 BAIMA ANAYELI L INSTITUTIONAL COMMODITY ANALYST Ot I25.10 ATHSCL HEART DISEASE OF [place] CORONARY 03/31/2017 BAIMA ANAYELI L INSTITUTIONAL COMMODITY ANALYST Ot I34.0 NONRHEUMATIC MITRAL (VALVE) INSUFFICIENC 03/31/2017 BAIMA ANAYELI L INSTITUTIONAL COMMODITY ANALYST Ot I35.8 OTHER NONRHEUMATIC AORTIC VALVE DISORDER 03/31/2017 BAIMA, ANAYELI L INSTITUTIONAL COMMODITY ANALYST Ot I65.23 OCCLUSION AND STENOSIS OF BILATERAL NG 03/31/2017 BAIMA ANAYELI L INSTITUTIONAL COMMODITY ANALYST Ot E78.4 OTHER HYPERLIPIDEMIA 03/31/2017 BAIMA, ANAYELI L INSTITUTIONAL COMMODITY ANALYST Ot I10 ESSENTIAL (PRIMARY) HYPERTENSION 03/31/2017 BAIMA ANAYELI L INSTITUTIONAL COMMODITY ANALYST Ot I25.10 ATHSCL HEART DISEASE OF [place] CORONARY 03/31/2017 BAIMA ANAYELI L INSTITUTIONAL COMMODITY ANALYST Ot I34.0 NONRHEUMATIC MITRAL (VALVE) INSUFFICIENC 03/31/2017 BAIMA, ANAYELI L INSTITUTIONAL COMMODITY ANALYST Ot I35.8 OTHER NONRHEUMATIC AORTIC VALVE DISORDER 03/31/2017 BAIMA, ANAYELI L INSTITUTIONAL COMMODITY ANALYST Ot I65.23 OCCLUSION AND STENOSIS OF BILATERAL NG 03/31/2017 JOSEY RIDER DO Ot M81.0 AGE-RELATED OSTEOPOROSIS W/O CURRENT PAT 03/31/2017 JOSEY RIDER DO, Ot S32.010S WEDGE COMPRESSION FRACTURE OF FIRST LUMB 03/31/2017 JOSEY RIDER DO Ot X58.XXXS EXPOSURE TO OTHER SPECIFIED FACTORS, SEQ 03/31/2017 JOSEY RIDER DO Ot Y99.8 OTHER EXTERNAL CAUSE STATUS 04/02/2017 GALINA MARCUM PRAKASH Z Ot E11.9 TYPE 2 DIABETES MELLITUS WITHOUT COMPLIC 04/02/2017 GALINA MARCUM PRAKASH Z Ot F03.90 UNSPECIFIED DEMENTIA WITHOUT BEHAVIORAL 04/02/2017 GALINA MARCUM PRAKASH Z Ot F17.210 NICOTINE DEPENDENCE, CIGARETTES, UNCOMPL 04/02/2017 GALINA MARCUM PRAKASH Z Ot F41.9 ANXIETY DISORDER, UNSPECIFIED 04/02/2017 GALINA MARCUM PRAKASH Z Ot I10 ESSENTIAL (PRIMARY) HYPERTENSION 04/02/2017 GALINA MARCUM PRAKASH Z Ot I25.10 ATHSCL HEART DISEASE OF [place] CORONARY 04/02/2017 GALINA MARCUM PRAKASH Z Ot K21.9 GASTRO-ESOPHAGEAL REFLUX DISEASE WITHOUT 04/02/2017 GALINA MARCUM PRAKASH Z Ot S32.010A WEDGE COMPRESSION FRACTURE OF FIRST LUMB 04/02/2017 GALINA MARCUM PRAKASH Z Ot X58.XXXA EXPOSURE TO OTHER SPECIFIED FACTORS, INI 04/02/2017 GALINA MARCUM PRAKASH Z Ot Y99.8 OTHER EXTERNAL CAUSE STATUS 04/02/2017 GALINA MARCUM PRAKASH Z Ot Z79.4 INCOME TAX CONSULTANT (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 04/02/2017 GALINA MARCUM PRAKASH Z Ot Z79.899 OTHER INCOME TAX CONSULTANT (CURRENT) DRUG THERAPY 04/02/2017 GALINA MARCUM PRAKASH Z Ot Z95.5 PRESENCE OF CORONARY ANGIOPLASTY IMPLANT 04/02/2017 JOSEY RIDER DO Ot S32.010D WEDGE COMPRSN FX FIRST LUM VERT, SUBS FO 04/02/2017 JOSEY RIDER DO Ot Z09 ENCNTR FOR F/U EXAM AFT TRTMT FOR COND O 04/05/2017 JOSEY RIDER DO Ot M81.0 AGE-RELATED OSTEOPOROSIS W/O CURRENT PAT 04/06/2017 BAIMA, ANAYELI L INSTITUTIONAL COMMODITY ANALYST Ot E78.4 OTHER HYPERLIPIDEMIA 04/06/2017 ANAYELI DICKENS L INSTITUTIONAL COMMODITY ANALYST Ot I10 ESSENTIAL (PRIMARY) HYPERTENSION 04/06/2017 ANAYELI DICKENS INSTITUTIONAL COMMODITY ANALYST Ot I25.10 ATHSCL HEART DISEASE OF [place] CORONARY 04/06/2017 ANAYELI DICKENS INSTITUTIONAL COMMODITY ANALYST Ot I34.0 NONRHEUMATIC MITRAL (VALVE) INSUFFICIENC 04/06/2017 ANAYELI DICKENS INSTITUTIONAL COMMODITY ANALYST Ot I35.8 OTHER NONRHEUMATIC AORTIC VALVE DISORDER 04/06/2017 ANAYELI DICKENS L INSTITUTIONAL COMMODITY ANALYST Ot 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 04/06/2017 CHRISSIEANAYELI L INSTITUTIONAL COMMODITY ANALYST Ot 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 04/06/2017 JOSEY RIDER DO, Ot S32.010D WEDGE COMPRSN FX FIRST LUM VERT, SUBS FO 04/06/2017 JOSEY RIDER DO, Ot Z09 ENCNTR FOR F/U EXAM AFT TRTMT FOR COND O 04/07/2017 ANAYELI DICKENS INSTITUTIONAL COMMODITY ANALYST Ot E78.4 OTHER HYPERLIPIDEMIA 04/07/2017 ANAYELI DICKENS INSTITUTIONAL COMMODITY ANALYST Ot I10 ESSENTIAL (PRIMARY) HYPERTENSION 04/07/2017 ANAYELI DICKENS INSTITUTIONAL COMMODITY ANALYST Ot I25.10 ATHSCL HEART DISEASE OF [place] CORONARY 04/07/2017 ANAYELI DICKENS INSTITUTIONAL COMMODITY ANALYST Ot I34.0 NONRHEUMATIC MITRAL (VALVE) INSUFFICIENC 04/07/2017 NICKANAYELI HURTADO INSTITUTIONAL COMMODITY ANALYST Ot I35.8 OTHER NONRHEUMATIC AORTIC VALVE DISORDER 04/07/2017 CHRISSIE ANAYELI Hilton INSTITUTIONAL COMMODITY ANALYST Ot I65.23 OCCLUSION AND STENOSIS OF BILATERAL NG 04/07/2017 JOSEY RIDER DO Ot M81.0 AGE-RELATED OSTEOPOROSIS W/O CURRENT PAT 04/07/2017 JOSEY RIDER DO, Ot M81.0 AGE-RELATED OSTEOPOROSIS W/O CURRENT PAT 04/07/2017 JOSEY RIDER DO, Ot M81.0 AGE-RELATED OSTEOPOROSIS W/O CURRENT PAT 04/09/2017 URI LEIVA MD Ot I65.23 OCCLUSION AND STENOSIS OF BILATERAL NG 04/09/2017 URI LEIVA MD, Ot N39.0 URINARY TRACT INFECTION, SITE NOT SPECIF 04/09/2017 URI LEIVA MD, Ot Z01.818 ENCOUNTER FOR OTHER PREPROCEDURAL EXAMIN 04/09/2017 JOSEY RIDER DO Ot M81.0 AGE-RELATED OSTEOPOROSIS W/O CURRENT PAT 04/09/2017 JOSEY RIDER DO, Ot S32.010S WEDGE COMPRESSION FRACTURE OF FIRST LUMB 04/09/2017 JOSEY RIDER DO Ot X58.XXXS EXPOSURE TO OTHER SPECIFIED FACTORS, SEQ 04/09/2017 JOSEY RIDER DO Ot Y99.8 OTHER EXTERNAL CAUSE STATUS 04/15/2017 JOSEY RIDER DO, Ot S32.010D WEDGE COMPRSN FX FIRST LUM VERT, SUBS FO 04/15/2017 JOSEY RIDER DO, Ot Z09 ENCNTR FOR F/U EXAM AFT TRTMT FOR COND O 04/19/2017 ANAYELI DICKENS Ot E78.4 OTHER HYPERLIPIDEMIA 04/19/2017 ANAYELI DICKENSP Ot I10 ESSENTIAL (PRIMARY) HYPERTENSION 04/19/2017 NAAYELI DICKENS Ot I25.10 ATHSCL HEART DISEASE OF [place] CORONARY 04/19/2017 ANAYELI DICKENS Ot I34.0 NONRHEUMATIC MITRAL (VALVE) INSUFFICIENC 04/19/2017 ANAYELI DICKENS Ot I35.8 OTHER NONRHEUMATIC AORTIC VALVE DISORDER 04/19/2017 ANAYELI DICKENS Ot I65.23 OCCLUSION AND STENOSIS OF BILATERAL NG 04/19/2017 JOSEY RIDER DO Ot M81.0 AGE-RELATED OSTEOPOROSIS W/O CURRENT PAT 04/19/2017 JOSEY RIDER DO, Ot S32.010S WEDGE COMPRESSION FRACTURE OF FIRST LUMB 04/19/2017 JOSEY RIDER DO Ot X58.XXXS EXPOSURE TO OTHER SPECIFIED FACTORS, SEQ 04/19/2017 JOSEY RIDER DO Ot Y99.8 OTHER EXTERNAL CAUSE STATUS 04/22/2017 URI LEIVA MD Ot R82.99 OTHER ABNORMAL FINDINGS IN URINE 04/22/2017 URI LEIVA MD Ot Z01.812 ENCOUNTER FOR PREPROCEDURAL LABORATORY E 04/28/2017 JOSEY RIDER DO Ot M81.0 AGE-RELATED OSTEOPOROSIS W/O CURRENT PAT 05/04/2017 URI LEIVA MD Ot I65.23 OCCLUSION AND STENOSIS OF BILATERAL NG 05/04/2017 URI LEIVA MD Ot N39.0 URINARY TRACT INFECTION, SITE NOT SPECIF 05/04/2017 URI LEIVA MD Ot Z01.818 ENCOUNTER FOR OTHER PREPROCEDURAL EXAMIN 05/04/2017 JOSEY RIDER DO Ot S32.010D WEDGE COMPRSN FX FIRST LUM VERT, SUBS FO 05/04/2017 JOSEY RIDER DO Ot Z09 ENCNTR FOR F/U EXAM AFT TRTMT FOR COND O 05/11/2017 URI LEIVA MD Ot I65.23 OCCLUSION AND STENOSIS OF BILATERAL NG 05/11/2017 URI LEIVA MD Ot N39.0 URINARY TRACT INFECTION, SITE NOT SPECIF 05/11/2017 URI LEIVA MD Ot Z01.818 ENCOUNTER FOR OTHER PREPROCEDURAL EXAMIN 05/12/2017 URI LEIVA MD Ot R82.99 OTHER ABNORMAL FINDINGS IN URINE 05/12/2017 URI LEIVA MD Ot Z01.812 ENCOUNTER FOR PREPROCEDURAL LABORATORY E 05/13/2017 GALINA MARCUM PRAKASH Z Ot E11.9 TYPE 2 DIABETES MELLITUS WITHOUT COMPLIC 05/13/2017 GALINA MARCUM PRAKASH Z Ot E78.4 OTHER HYPERLIPIDEMIA 05/13/2017 GALINA MARCUM PRAKASH Z Ot F03.90 UNSPECIFIED DEMENTIA WITHOUT BEHAVIORAL 05/13/2017 GALINA MARCUM PRAKASH Z Ot F17.210 NICOTINE DEPENDENCE, CIGARETTES, UNCOMPL 05/13/2017 GALINA MARCUM PRAKASH Z Ot F41.9 ANXIETY DISORDER, UNSPECIFIED 05/13/2017 GALINA MARCUM PRAKASH Z Ot I10 ESSENTIAL (PRIMARY) HYPERTENSION 05/13/2017 GALINA MARCUM PRAKASH Z Ot I25.10 ATHSCL HEART DISEASE OF [place] CORONARY 05/13/2017 KAMLESH MOJICA MDIQ Z Ot I65.23 OCCLUSION AND STENOSIS OF BILATERAL NG 05/13/2017 GALINA MARCUM PRAKASH Z Ot K21.9 GASTRO-ESOPHAGEAL REFLUX DISEASE WITHOUT 05/13/2017 GALINA MARCUM PRAKASH Z Ot S32.010A WEDGE COMPRESSION FRACTURE OF FIRST LUMB 05/13/2017 GALINA MARCUM PRAKASH Z Ot X58.XXXA EXPOSURE TO OTHER SPECIFIED FACTORS, INI 05/13/2017 GALINA MARCUM, PRAKASH Z Ot Y99.8 OTHER EXTERNAL CAUSE STATUS 05/13/2017 GALINA MARCUM, PRAKASH Z Ot Z79.4 RETIREMENT (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 05/13/2017 GALINA MARCUM, PRAKASH Z Ot Z79.899 OTHER RETIREMENT (CURRENT) DRUG THERAPY 05/13/2017 GALINA MARCUM, PRAKASH Z Ot Z95.5 PRESENCE OF CORONARY ANGIOPLASTY IMPLANT 05/17/2017 JOSEY RIDER DO Ot M81.0 AGE-RELATED OSTEOPOROSIS W/O CURRENT PAT 05/21/2017 RABBI MARCUM, URI Mosqueda Ot R82.99 OTHER ABNORMAL FINDINGS IN URINE 05/21/2017 RABBI MARCUM, URI Mosqueda Ot Z01.812 ENCOUNTER FOR PREPROCEDURAL LABORATORY E 06/01/2017 JOSEY RIDER DO, Ot S32.010D WEDGE COMPRSN FX FIRST LUM VERT, SUBS FO 06/01/2017 JOSEY RIDER DO Ot Z09 ENCNTR FOR F/U EXAM AFT TRTMT FOR COND O 06/03/2017 JOSEY RIDER DO, Ot S32.010D WEDGE COMPRSN FX FIRST LUM VERT, SUBS FO 06/03/2017 OJSEY RIDER DO Ot Z09 ENCNTR FOR F/U EXAM AFT TRTMT FOR COND O 06/09/2017 JOSEY RIDER DO, Ot S32.010D WEDGE COMPRSN FX FIRST LUM VERT, SUBS FO 06/09/2017 JOSEY RIDER DO Ot Z09 ENCNTR FOR F/U EXAM AFT TRTMT FOR COND O 06/17/2017 JOSEY RIDER DO Ot S32.010D WEDGE COMPRSN FX FIRST LUM VERT, SUBS FO 06/17/2017 JSOEY RIDER DO Ot Z09 ENCNTR FOR F/U EXAM AFT TRTMT FOR COND O 06/18/2017 JOSEY RIDER DO Ot S32.010D WEDGE COMPRSN FX FIRST LUM VERT, SUBS FO 06/18/2017 JOSEY RIDER DO Ot Z09 ENCNTR FOR F/U EXAM AFT TRTMT FOR COND O 06/25/2017 JOSEY RIDER DO, Ot S32.010D WEDGE COMPRSN FX FIRST LUM VERT, SUBS FO 06/25/2017 JOSEY RIDER DO, Ot Z09 ENCNTR FOR F/U EXAM AFT TRTMT FOR COND O 07/01/2017 JOSEY RIDER DO, Ot S32.010D WEDGE COMPRSN FX FIRST LUM VERT, SUBS FO 07/01/2017 JOSEY RIDER DO, Ot Z09 ENCNTR FOR F/U EXAM AFT TRTMT FOR COND O 07/07/2017 JOSEY RIDER DO, Ot S32.010D WEDGE COMPRSN FX FIRST LUM VERT, SUBS FO 07/07/2017 JOSEY RIDER DO, Ot Z09 ENCNTR FOR F/U EXAM AFT TRTMT FOR COND O 07/15/2017 JOSEY RIDER DO, Ot S32.010D WEDGE COMPRSN FX FIRST LUM VERT, SUBS FO 07/15/2017 JOSEY RIDER DO, Ot Z09 ENCNTR FOR F/U EXAM AFT TRTMT FOR COND O 08/04/2017 JOSEY RIDER DO, Ot S32.010D WEDGE COMPRSN FX FIRST LUM VERT, SUBS FO 08/04/2017 JOSEY RIDER DO, Ot Z09 ENCNTR FOR F/U EXAM AFT TRTMT FOR COND O 08/26/2017 JOSEY RIDER DO Ot M79.89 OTHER SPECIFIED SOFT TISSUE DISORDERS 08/26/2017 JOSEY RIDER DO, Ot Z53.8 PROCEDURE AND TREATMENT NOT CARRIED OUT 09/01/2017 JOSEY RIDER DO, Ot M79.89 OTHER SPECIFIED SOFT TISSUE DISORDERS 09/01/2017 JOSEY RIDER DO, Ot Z53.8 PROCEDURE AND TREATMENT NOT CARRIED OUT 03/22/2018 NEY ASTUDILLO SEARCH ENGINE OPTIMIZATION STRATEGIST Ot 719.07 JOINT EFFUSION-ANKLE 03/22/2018 NEY ASTUDILLO APRN Ot 719.47 JOINT PAIN-ANKLE 03/22/2018 JOSEY RIDER DO, Ot V76.12 OTH SCREEN MAMMO-MALIGN NEOPLASM OF [place] 03/22/2018 Ot V76.12 OTH SCREEN MAMMO-MALIGN NEOPLASM OF [place] 03/22/2018 KYMBERLY DPM, DAVID Q Ot 727.1 BUNION 03/22/2018 KYMBERLY DPM, DAVID Q Ot V72.83 EXAM PRE-OPERATIVE NEC 03/22/2018 ABRAN MARCUM FACC, ALI FACP CCDS Ot 272.4 HYPERLIPIDEMIA NEC/NOS 03/22/2018 ABRAN MARCUM FACC, ALI FACP CCDS Ot 401.9 HYPERTENSION NOS 03/22/2018 ABRAN MARCUM FACC, ALI FACP CCDS Ot 414.9 CHR ISCHEMIC HRT DIS NOS 03/22/2018 ABRAN MARCUM FACC, ALI FACP CCDS Ot 433.10 CAROTID ARTERY OCCLUSION W O CEREBRAL IN 03/22/2018 ABRAN MARCUM FACC, ALI FACP CCDS Ot 272.4 HYPERLIPIDEMIA NEC/NOS 03/22/2018 ABRAN MARCUM FACC, ALI FACP CCDS Ot 401.9 HYPERTENSION NOS 03/22/2018 ABRAN MARCUM FACC, ALI FACP CCDS Ot 414.9 CHR ISCHEMIC HRT DIS NOS 03/22/2018 ABRAN MARCUM FACC, ALI FACP CCDS Ot 433.10 CAROTID ARTERY OCCLUSION W O CEREBRAL IN 03/22/2018 KYMBERLY DPM, DAVID Q Ot M20.5X2 OTHER DEFORMITIES OF TOE(S) (ACQUIRED), 03/22/2018 KYMBERLY DPM, DAVID Q Ot Z01.818 ENCOUNTER FOR OTHER PREPROCEDURAL EXAMIN 03/22/2018 KYMBERLY DPM, DAVID Q Ot L97.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8 OTH ABN AND INCONCLUSIVE FINDINGS ON DX 03/22/2018 ANAYELI DICKENS INSTITUTIONAL COMMODITY ANALYST Ot E78.4 OTHER HYPERLIPIDEMIA 03/22/2018 ANAYELI DICKENS Ot I25.10 ATHSCL HEART DISEASE OF [place] CORONARY 03/22/2018 JOSEY RIDER DO Ot R15.9 FULL INCONTINENCE OF FECES 03/22/2018 JOSEY RIDER DO Ot R32 UNSPECIFIED URINARY INCONTINENCE 03/22/2018 JOSEY RIDER DO, Ot R92.8 OTH ABN AND INCONCLUSIVE FINDINGS ON DX 03/22/2018 ANAYELI DICKENS Ot E78.4 OTHER HYPERLIPIDEMIA 03/22/2018 ANAYELI DICKENS INSTITUTIONAL COMMODITY ANALYST Ot I10 ESSENTIAL (PRIMARY) HYPERTENSION 03/22/2018 ANAYELI DICKENS Ot I25.10 ATHSCL HEART DISEASE OF [place] CORONARY 03/22/2018 JOSEY RIDER DO Ot 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, NEC, LUMBAR REGION, 03/22/2018 JOSEY RIDER DO Ot S32.010A WEDGE COMPRESSION FRACTURE OF FIRST LUMB 03/22/2018 JOSEY RIDER DO Ot W19.XXXA UNSPECIFIED FALL, INITIAL ENCOUNTER 03/22/2018 JOSEY RIDER DO Ot Y99.8 OTHER EXTERNAL CAUSE STATUS 03/22/2018 ANAYELI DICKENS Ot E78.4 OTHER HYPERLIPIDEMIA 03/22/2018 ANAYELI DICKENS INSTITUTIONAL COMMODITY ANALYST Ot I10 ESSENTIAL (PRIMARY) HYPERTENSION 03/22/2018 ANAYELI DICKENS Ot I25.10 ATHSCL HEART DISEASE OF [place] CORONARY 03/22/2018 ANAYELI DICKENSP Ot I65.23 OCCLUSION AND STENOSIS OF BILATERAL NG 03/22/2018 JOSEY RIDER DO Ot N32.3 DIVERTICULUM OF BLADDER 03/22/2018 JOSEY RIDER DO Ot N32.89 OTHER SPECIFIED DISORDERS OF BLADDER 03/22/2018 ANAYELI DICKENS INSTITUTIONAL COMMODITY ANALYST Ot E78.4 OTHER HYPERLIPIDEMIA 03/22/2018 ANAYELI DICKENS INSTITUTIONAL COMMODITY ANALYST Ot I10 ESSENTIAL (PRIMARY) HYPERTENSION 03/22/2018 ANAYELI DICKENS INSTITUTIONAL COMMODITY ANALYST Ot I25.10 ATHSCL HEART DISEASE OF [place] CORONARY 03/22/2018 ANAYELI DICKENS INSTITUTIONAL COMMODITY ANALYST Ot I34.0 NONRHEUMATIC MITRAL (VALVE) INSUFFICIENC 03/22/2018 ANAYELI DICKENS INSTITUTIONAL COMMODITY ANALYST Ot I35.8 OTHER NONRHEUMATIC AORTIC VALVE DISORDER 03/22/2018 ANAYELI DICKENS INSTITUTIONAL COMMODITY ANALYST Ot 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 03/22/2018 BAIANAYELI HURTADO L INSTITUTIONAL COMMODITY ANALYST Ot 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 03/22/2018 ANAYELI DICKENS L INSTITUTIONAL COMMODITY ANALYST Ot E34.0 CARCINOID SYNDROME 03/22/2018 BAIANAYELI HURTADO L INSTITUTIONAL COMMODITY ANALYST Ot E78.4 OTHER HYPERLIPIDEMIA 03/22/2018 BAIMAANNEANAYELI L INSTITUTIONAL COMMODITY ANALYST Ot I10 ESSENTIAL (PRIMARY) HYPERTENSION 03/22/2018 BAIANNE HURTADOHER L INSTITUTIONAL COMMODITY ANALYST Ot I25.10 ATHSCL HEART DISEASE OF [place] CORONARY 03/22/2018 ANAYELI DICKENS L INSTITUTIONAL COMMODITY ANALYST Ot I34.0 NONRHEUMATIC MITRAL (VALVE) INSUFFICIENC 03/22/2018 ANAYELI DICKENS L INSTITUTIONAL COMMODITY ANALYST Ot I35.8 OTHER NONRHEUMATIC AORTIC VALVE DISORDER 03/22/2018 BAIANAYELI HURTADO L INSTITUTIONAL COMMODITY ANALYST Ot I65.23 OCCLUSION AND STENOSIS OF BILATERAL NG 03/22/2018 ANAYELI DICKENS L INSTITUTIONAL COMMODITY ANALYST Ot E78.4 OTHER HYPERLIPIDEMIA 03/22/2018 BAIANNE HURTADOHER L INSTITUTIONAL COMMODITY ANALYST Ot I10 ESSENTIAL (PRIMARY) HYPERTENSION 03/22/2018 ANAYELI DICKENS L INSTITUTIONAL COMMODITY ANALYST Ot I25.10 ATHSCL HEART DISEASE OF [place] CORONARY 03/22/2018 ANAYELI DICKENS L INSTITUTIONAL COMMODITY ANALYST Ot I34.0 NONRHEUMATIC MITRAL (VALVE) INSUFFICIENC 03/22/2018 NICKANAYELI HURTADO L INSTITUTIONAL COMMODITY ANALYST Ot I35.8 OTHER NONRHEUMATIC AORTIC VALVE DISORDER 03/22/2018 NICKANAYELI HURTADO INSTITUTIONAL COMMODITY ANALYST Ot I65.23 OCCLUSION AND STENOSIS OF BILATERAL NG 03/22/2018 JOSEY RIDER DO Ot M81.0 AGE-RELATED OSTEOPOROSIS W/O CURRENT PAT 03/22/2018 JOSEY RIDER DO Ot S32.010S WEDGE COMPRESSION FRACTURE OF FIRST LUMB 03/22/2018 JOSEY RIDER DO Ot X58.XXXS EXPOSURE TO OTHER SPECIFIED FACTORS, SEQ 03/22/2018 JOSEY RIDER DO Ot Y99.8 OTHER EXTERNAL CAUSE STATUS 03/22/2018 JOSEY RIDER DO Ot M81.0 AGE-RELATED OSTEOPOROSIS W/O CURRENT PAT 03/22/2018 URI LEIVA MD Ot I65.23 OCCLUSION AND STENOSIS OF BILATERAL NG 03/22/2018 UIR LEIVA MD Ot N39.0 URINARY TRACT INFECTION, SITE NOT SPECIF 03/22/2018 URI LEIVA MD Ot Z01.818 ENCOUNTER FOR OTHER PREPROCEDURAL EXAMIN 03/22/2018 URI LEIVA MD Ot R82.99 OTHER ABNORMAL FINDINGS IN URINE 03/22/2018 URI LEIVA MD Ot Z01.812 ENCOUNTER FOR PREPROCEDURAL LABORATORY E 03/22/2018 JOSEY RIDER DO Ot M79.89 OTHER SPECIFIED SOFT TISSUE DISORDERS 03/22/2018 JOSEY RIDER DO Ot Z53.8 PROCEDURE AND TREATMENT NOT CARRIED OUT 03/24/2018 ABRAN MARCUM FACC, JOAQUÍN HINOJOSAP CCDS Ot E11.9 TYPE 2 DIABETES MELLITUS WITHOUT COMPLIC 03/24/2018 ABRAN MARCUM FACC, JOAQUÍN HINOJOSAP CCDS Ot E78.5 HYPERLIPIDEMIA, UNSPECIFIED 03/24/2018 ABRAN MARCUM FACC, JOAQUÍN FACP CCDS Ot I10 ESSENTIAL (PRIMARY) HYPERTENSION 03/24/2018 ABRAN MARCUM FACC, JOAQUÍN FACP CCDS Ot I25.10 ATHSCL HEART DISEASE OF [place] CORONARY 03/24/2018 ABRAN MARCUM FACC, JOAQUÍN HINOJOSAP CCDS Ot I65.29 OCCLUSION AND STENOSIS OF UNSPECIFIED CA 03/24/2018 ABRAN MARCUM FACC, JOAQUÍN HINOJOSAP CCDS Ot Z72.0 TOBACCO USE 03/25/2018 RIDINGS, NEY C SEARCH ENGINE OPTIMIZATION STRATEGIST Ot 719.07 JOINT EFFUSION-ANKLE 03/25/2018 RIDINGS, NEY C SEARCH ENGINE OPTIMIZATION STRATEGIST Ot 719.47 JOINT PAIN-ANKLE 03/25/2018 JOSEY RIDER DO Ot V76.12 OTH SCREEN MAMMO-MALIGN NEOPLASM OF [place] 03/25/2018 Ot V76.12 OTH SCREEN MAMMO-MALIGN NEOPLASM OF [place] 03/25/2018 KYMBERLY DPM, DAVID Q Ot 727.1 BUNION 03/25/2018 KYMBERLY DPM, DAVID Q Ot V72.83 EXAM PRE-OPERATIVE NEC 03/25/2018 ABRAN MARCUM FACC, JOAQUÍN FACP CCDS Ot 272.4 HYPERLIPIDEMIA NEC/NOS 03/25/2018 ABRAN MARCUM FACC, ALI FACP CCDS Ot 401.9 HYPERTENSION NOS 03/25/2018 ABRAN HINOJOSAC, ALI FACP CCDS Ot 414.9 CHR ISCHEMIC HRT DIS NOS 03/25/2018 ABRAN MARCUM FACC, ALI FACP CCDS Ot 433.10 CAROTID ARTERY OCCLUSION W O CEREBRAL IN 03/25/2018 ABRAN MARCUM FACC, ALI FACP CCDS Ot 272.4 HYPERLIPIDEMIA NEC/NOS 03/25/2018 ABRAN MARCUM FACC, ALI FACP CCDS Ot 401.9 HYPERTENSION NOS 03/25/2018 ABRAN MARCUM FACC, ALI FACP CCDS Ot 414.9 CHR ISCHEMIC HRT DIS NOS 03/25/2018 ABRAN MARCUM FACC, ALI FACP CCDS Ot 433.10 CAROTID ARTERY OCCLUSION W O CEREBRAL IN 03/25/2018 KYMBERLY DPM, DAVID Q Ot M20.5X2 OTHER DEFORMITIES OF TOE(S) (ACQUIRED), 03/25/2018 KYMBERLY DPM, DAVID Q Ot Z01.818 ENCOUNTER FOR OTHER PREPROCEDURAL EXAMIN 03/25/2018 KYMBERLY DPM, DAVID Q Ot L97.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 03/25/2018 JOSEY RIDER DO Ot Z12.31 ENCNTR SCREEN MAMMOGRAM FOR MALIGNANT NE 03/25/2018 JOSEY RIDER DO Ot R92.8 OTH ABN AND INCONCLUSIVE FINDINGS ON DX 03/25/2018 ANAYELI DICKENSP Ot I65.23 OCCLUSION AND STENOSIS OF BILATERAL NG 03/25/2018 ANAYELI DICKENSP Ot Z53.9 PROCEDURE AND TREATMENT NOT CARRIED OUT, 03/25/2018 ANAYELI DICKENSP Ot E78.4 OTHER HYPERLIPIDEMIA 03/25/2018 ANAYELI DICKENS INSTITUTIONAL COMMODITY ANALYST Ot I65.23 OCCLUSION AND STENOSIS OF BILATERAL NG 03/25/2018 JOSEY RIDER DO Ot R92.8 OTH ABN AND INCONCLUSIVE FINDINGS ON DX 03/25/2018 ANAYELI DICKENSP Ot E78.4 OTHER HYPERLIPIDEMIA 03/25/2018 ANAYELI DICKENSP Ot I25.10 ATHSCL HEART DISEASE OF [place] CORONARY 03/25/2018 JOSEY RIDER DO Ot R15.9 FULL INCONTINENCE OF FECES 03/25/2018 JOSEY RIDER DO Ot R32 UNSPECIFIED URINARY INCONTINENCE 03/25/2018 JOSEY RIDER DO Ot R92.8 OTH ABN AND INCONCLUSIVE FINDINGS ON DX 03/25/2018 ANAYELI DICKENS INSTITUTIONAL COMMODITY ANALYST Ot E78.4 OTHER HYPERLIPIDEMIA 03/25/2018 ANAYELI DICKENS INSTITUTIONAL COMMODITY ANALYST Ot I10 ESSENTIAL (PRIMARY) HYPERTENSION 03/25/2018 ANAYELI DICKENS INSTITUTIONAL COMMODITY ANALYST Ot I25.10 ATHSCL HEART DISEASE OF [place] CORONARY 03/25/2018 JOSEY RIDER DO Ot 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, NEC, LUMBAR REGION, 03/25/2018 JOSEY RIDER DO Ot S32.010A WEDGE COMPRESSION FRACTURE OF FIRST LUMB 03/25/2018 JOSEY RIDER DO Ot W19.XXXA UNSPECIFIED FALL, INITIAL ENCOUNTER 03/25/2018 JOSEY RIDER DO Ot Y99.8 OTHER EXTERNAL CAUSE STATUS 03/25/2018 ANAYELI DICKENS INSTITUTIONAL COMMODITY ANALYST Ot E78.4 OTHER HYPERLIPIDEMIA 03/25/2018 ANAYELI DICKENS INSTITUTIONAL COMMODITY ANALYST Ot I10 ESSENTIAL (PRIMARY) HYPERTENSION 03/25/2018 ANAYELI DICKENS INSTITUTIONAL COMMODITY ANALYST Ot I25.10 ATHSCL HEART DISEASE OF [place] CORONARY 03/25/2018 ANAYELI DICKENS INSTITUTIONAL COMMODITY ANALYST Ot I65.23 OCCLUSION AND STENOSIS OF BILATERAL NG 03/25/2018 JOSEY RIDER DO Ot N32.3 DIVERTICULUM OF BLADDER 03/25/2018 JOSEY RIDER DO Ot N32.89 OTHER SPECIFIED DISORDERS OF BLADDER 03/25/2018 ANAYELI DICKENS INSTITUTIONAL COMMODITY ANALYST Ot E78.4 OTHER HYPERLIPIDEMIA 03/25/2018 ANAYELI DICKENS INSTITUTIONAL COMMODITY ANALYST Ot I10 ESSENTIAL (PRIMARY) HYPERTENSION 03/25/2018 ANAYELI DICKENS INSTITUTIONAL COMMODITY ANALYST Ot I25.10 ATHSCL HEART DISEASE OF [place] CORONARY 03/25/2018 ANAYELI DICKENS L INSTITUTIONAL COMMODITY ANALYST Ot I34.0 NONRHEUMATIC MITRAL (VALVE) INSUFFICIENC 03/25/2018 ANAYELI DICKENS L INSTITUTIONAL COMMODITY ANALYST Ot I35.8 OTHER NONRHEUMATIC AORTIC VALVE DISORDER 03/25/2018 ANAYELI DICKENS L INSTITUTIONAL COMMODITY ANALYST Ot 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 03/25/2018 ANAYELI DICKENS L INSTITUTIONAL COMMODITY ANALYST Ot 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 03/25/2018 ANAYELI DICKENS L INSTITUTIONAL COMMODITY ANALYST Ot E34.0 CARCINOID SYNDROME 03/25/2018 ANAYELI DICKENS INSTITUTIONAL COMMODITY ANALYST Ot E78.4 OTHER HYPERLIPIDEMIA 03/25/2018 BAIANAYELI HURTADO L INSTITUTIONAL COMMODITY ANALYST Ot I10 ESSENTIAL (PRIMARY) HYPERTENSION 03/25/2018 ANAYELI DICKENS L INSTITUTIONAL COMMODITY ANALYST Ot I25.10 ATHSCL HEART DISEASE OF [place] CORONARY 03/25/2018 ANAYELI DICKENS L INSTITUTIONAL COMMODITY ANALYST Ot I34.0 NONRHEUMATIC MITRAL (VALVE) INSUFFICIENC 03/25/2018 BAIANAYELI HURTADO L INSTITUTIONAL COMMODITY ANALYST Ot I35.8 OTHER NONRHEUMATIC AORTIC VALVE DISORDER 03/25/2018 ANAYELI DICKENS L INSTITUTIONAL COMMODITY ANALYST Ot I65.23 OCCLUSION AND STENOSIS OF BILATERAL NG 03/25/2018 ANAYELI DICKENS INSTITUTIONAL COMMODITY ANALYST Ot E78.4 OTHER HYPERLIPIDEMIA 03/25/2018 ANAYELI DICKENS L INSTITUTIONAL COMMODITY ANALYST Ot I10 ESSENTIAL (PRIMARY) HYPERTENSION 03/25/2018 ANAYELI DICKENS INSTITUTIONAL COMMODITY ANALYST Ot I25.10 ATHSCL HEART DISEASE OF [place] CORONARY 03/25/2018 ANAYELI DICKENS L INSTITUTIONAL COMMODITY ANALYST Ot I34.0 NONRHEUMATIC MITRAL (VALVE) INSUFFICIENC 03/25/2018 ANAYELI DICKENS INSTITUTIONAL COMMODITY ANALYST Ot I35.8 OTHER NONRHEUMATIC AORTIC VALVE DISORDER 03/25/2018 ANAYELI DICKENS L INSTITUTIONAL COMMODITY ANALYST Ot I65.23 OCCLUSION AND STENOSIS OF BILATERAL NG 03/25/2018 JOSEY RIDER DO Ot M81.0 AGE-RELATED OSTEOPOROSIS W/O CURRENT PAT 03/25/2018 JOSEY RIDER DO Ot S32.010S WEDGE COMPRESSION FRACTURE OF FIRST LUMB 03/25/2018 JOSEY RIDER DO Ot X58.XXXS EXPOSURE TO OTHER SPECIFIED FACTORS, SEQ 03/25/2018 JOSEY RIDER DO Ot Y99.8 OTHER EXTERNAL CAUSE STATUS 03/25/2018 JOSEY RIDER DO, Ot M81.0 AGE-RELATED OSTEOPOROSIS W/O CURRENT PAT 03/25/2018 URI LEIVA MD Ot I65.23 OCCLUSION AND STENOSIS OF BILATERAL NG 03/25/2018 URI LEIVA MD Ot N39.0 URINARY TRACT INFECTION, SITE NOT SPECIF 03/25/2018 URI LEIVA MD Ot Z01.818 ENCOUNTER FOR OTHER PREPROCEDURAL EXAMIN 03/25/2018 URI LEIVA MD Ot R82.99 OTHER ABNORMAL FINDINGS IN URINE 03/25/2018 RABBI MARCUM, URI F Ot Z01.812 ENCOUNTER FOR PREPROCEDURAL LABORATORY E 03/25/2018 JOSEY RIDER DO Ot M79.89 OTHER SPECIFIED SOFT TISSUE DISORDERS 03/25/2018 JOSEY RIDER DO Ot Z53.8 PROCEDURE AND TREATMENT NOT CARRIED OUT 03/25/2018 ABRAN MARCUM FACC, ALI FACP CCDS Ot E11.9 TYPE 2 DIABETES MELLITUS WITHOUT COMPLIC 03/25/2018 ABRAN MARCUM FACC, ALI FACP CCDS Ot E78.5 HYPERLIPIDEMIA, UNSPECIFIED 03/25/2018 ABRAN HINOJOSAC, ALI FACP CCDS Ot I10 ESSENTIAL (PRIMARY) HYPERTENSION 03/25/2018 ABRAN MARCUM FACC, ALI FACP CCDS Ot I25.10 ATHSCL HEART DISEASE OF [place] CORONARY 03/25/2018 ABRAN MARCUM FACC, ALI FACP CCDS Ot I65.29 OCCLUSION AND STENOSIS OF UNSPECIFIED CA 03/25/2018 ABRAN HINOJOSAC, ALI FACP CCDS Ot Z72.0 TOBACCO USE 03/29/2018 ABRAN MARCUM FACC, ALI FACP CCDS Ot E11.9 TYPE 2 DIABETES MELLITUS WITHOUT COMPLIC 03/29/2018 ABRAN MARCUM FACC, ALI FACP CCDS Ot E78.5 HYPERLIPIDEMIA, UNSPECIFIED 03/29/2018 ABRAN MARCUM FACC, ALI FACP CCDS Ot I10 ESSENTIAL (PRIMARY) HYPERTENSION 03/29/2018 ABRAN HINOJOSAC, ALI FACP CCDS Ot I25.10 ATHSCL HEART DISEASE OF [place] CORONARY 03/29/2018 ABRAN MARCUM FACC, ALI FACP CCDS Ot Z72.0 TOBACCO USE 04/03/2018 ABRAN MARCUM FACC, ALI FACP CCDS Ot E11.9 TYPE 2 DIABETES MELLITUS WITHOUT COMPLIC 04/03/2018 ABRAN MARCUM FACC, ALI FACP CCDS Ot E78.5 HYPERLIPIDEMIA, UNSPECIFIED 04/03/2018 ABRAN MARCUM FACC, ALI FACP CCDS Ot I10 ESSENTIAL (PRIMARY) HYPERTENSION 04/03/2018 ABRAN MARCUM FACC, ALI FACP CCDS Ot I25.10 ATHSCL HEART DISEASE OF [place] CORONARY 04/03/2018 ABRAN MARCUM FACC, ALI FACP CCDS Ot Z72.0 TOBACCO USE 04/13/2018 ABRAN MARCUM FACC, ALI FACP CCDS Ot E11.9 TYPE 2 DIABETES MELLITUS WITHOUT COMPLIC 04/13/2018 ABRAN MARCUM FACC, ALI FACP CCDS Ot E78.5 HYPERLIPIDEMIA, UNSPECIFIED 04/13/2018 ABRAN HINOJOSAC, ALI FACP CCDS Ot I10 ESSENTIAL (PRIMARY) HYPERTENSION 04/13/2018 ABRAN MARCUM FACC, ALI FACP CCDS Ot I25.10 ATHSCL HEART DISEASE OF [place] CORONARY 04/13/2018 ABRAN HINOJOSAC, ALI FACP CCDS Ot I65.29 OCCLUSION AND STENOSIS OF UNSPECIFIED CA 04/13/2018 ABRAN MARCUM FACC, ALI FACP CCDS Ot Z72.0 TOBACCO USE 04/21/2018 ABRAN MARCUM FACC, ALI FACP CCDS Ot E11.9 TYPE 2 DIABETES MELLITUS WITHOUT COMPLIC 04/21/2018 ABRAN MARCUM FACC, ALI FACP CCDS Ot E78.5 HYPERLIPIDEMIA, UNSPECIFIED 04/21/2018 ABRAN MARCUM FACC, ALI FACP CCDS Ot I10 ESSENTIAL (PRIMARY) HYPERTENSION 04/21/2018 ABRAN MARCUM FACC, ALI FACP CCDS Ot I25.10 ATHSCL HEART DISEASE OF [place] CORONARY 04/21/2018 ABRAN MARCUM FACC, ALI FACP CCDS Ot Z72.0 TOBACCO USE 04/25/2018 JOSEY RIDER DO Ot I70.213 ATHSCL [place] ARTERIES OF EXTRM W INTRMT 04/25/2018 JOSEY RIDER DO Ot I70.213 ATHSCL [place] ARTERIES OF EXTRM W INTRMT 04/27/2018 JOSEY RIDER DO Ot E11.51 TYPE 2 DIABETES W DIABETIC PERIPHERAL AN 04/27/2018 JOSEY RIDER DO Ot I10 ESSENTIAL (PRIMARY) HYPERTENSION 04/27/2018 JOSEY RIDER DO Ot I73.9 PERIPHERAL VASCULAR DISEASE, UNSPECIFIED 04/27/2018 JOSEY RIDER DO Ot Z72.0 TOBACCO USE 04/28/2018 ABRAN MARCUM FACC, JOAQUÍN FACP CCDS Ot E11.9 TYPE 2 DIABETES MELLITUS WITHOUT COMPLIC 04/28/2018 ABRAN MARCUM FACC, ALI FACP CCDS Ot E78.5 HYPERLIPIDEMIA, UNSPECIFIED 04/28/2018 ABRAN MARCUM FACC, ALI FACP CCDS Ot I10 ESSENTIAL (PRIMARY) HYPERTENSION 04/28/2018 ABRAN HINOJOSA, ALI FACP CCDS Ot I25.10 ATHSCL HEART DISEASE OF [place] CORONARY 04/28/2018 ABRAN MARCUM [facility], ALI FACP CCDS Ot I65.29 OCCLUSION AND STENOSIS OF UNSPECIFIED [place] 04/28/2018 ABRAN MARCUM [facility], ALI FACP CCDS Ot Z72.0 TOBACCO USE 05/12/2018 ABRAN MARCUM [facility], ALI FACP CCDS Ot E11.9 TYPE 2 DIABETES MELLITUS WITHOUT COMPLIC 05/12/2018 ABRAN MARCUM [facility], ALI FACP CCDS Ot E78.5 HYPERLIPIDEMIA, UNSPECIFIED 05/12/2018 ABRAN MARCUM [facility], ALI FACP CCDS Ot I10 ESSENTIAL (PRIMARY) HYPERTENSION 05/12/2018 ABRAN MARCUM [facility], ALI FACP CCDS Ot I25.10 ATHSCL HEART DISEASE OF [place] CORONARY 05/12/2018 ABRAN MARCUM [facility], ALI FACP CCDS Ot Z72.0 TOBACCO USE 05/18/2018 RIDER DO, JOSEY J Ot E11.51 TYPE 2 DIABETES W DIABETIC PERIPHERAL AN 05/18/2018 RIDER DO, JOSEY J Ot I10 ESSENTIAL (PRIMARY) HYPERTENSION 05/18/2018 RIDER DO, JOSEY J Ot I73.9 PERIPHERAL VASCULAR DISEASE, UNSPECIFIED 05/18/2018 RIDER DO, JOSEY J Ot Z72.0 TOBACCO USE 05/25/2018 RIDER DO, JOSEY J Ot E11.51 TYPE 2 DIABETES W DIABETIC PERIPHERAL AN 05/25/2018 RIDER DO, JOSEY J Ot I10 ESSENTIAL (PRIMARY) HYPERTENSION 05/25/2018 RIDER DO, JOSEY J Ot I73.9 PERIPHERAL VASCULAR DISEASE, UNSPECIFIED 05/25/2018 RIDER DO, JOSEY J Ot Z72.0 TOBACCO USE 06/09/2018 KYMBERLY DPM, DAVID Q Ot L03.116 CELLULITIS OF LEFT LOWER LIMB 06/09/2018 KYMBERLY DPM, DAVID Q Ot L97.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 06/13/2018 NATHANIEL MOFFETT MD, Ot N39.0 URINARY TRACT INFECTION, SITE NOT SPECIF 06/13/2018 NATHANIEL MOFFETT MD Ot Z01.818 ENCOUNTER FOR OTHER PREPROCEDURAL EXAMIN 06/16/2018 NATHANIEL MOFFETT MD, Ot N39.0 URINARY TRACT INFECTION, SITE NOT SPECIF 06/16/2018 NATHANIEL MOFFETT MD, Ot Z01.810 ENCOUNTER FOR PREPROCEDURAL CARDIOVASCUL 06/29/2018 KYMBERLY DPM, DAVID Q Ot L97.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 07/01/2018 NATHANIEL MOFFETT MD, Ot N39.0 URINARY TRACT INFECTION, SITE NOT SPECIF 07/01/2018 NATHANIEL MOFFETT MD, Ot Z01.818 ENCOUNTER FOR OTHER PREPROCEDURAL EXAMIN Procedures Code Description Performed By Performed On 00.40 PROCEDURE ON SINGLE VESSEL 11/23/2011 38.12 HEAD NECK ENDARTER NEC 11/23/2011 Results Test Result Range Comprehensive metabolic panel - 02/14/16 08:23 Serum or plasma sodium measurement (moles/volume) 139 mmol/L 135-145 Serum or plasma potassium measurement (moles/volume) 4.1 mmol/L 3.6-5.0 Serum or plasma chloride measurement (moles/volume) 107 mmol/L 98-107 Carbon dioxide 20 mmol/L 21-32 Serum or plasma anion gap determination (moles/volume) 12 mmol/L 5-14 Serum or plasma urea nitrogen measurement (mass/volume) 9 mg/dL 7-18 Serum or plasma creatinine measurement (mass/volume) 0.65 mg/dL 0.60-1.30 Serum or plasma urea nitrogen/creatinine mass [...] Serum or plasma triglyceride measurement (mass/volume) 66 mg/dL <150 Serum or plasma cholesterol measurement (mass/volume) 144 mg/dL < 200 Serum or plasma cholesterol in HDL measurement (mass/volume) 47 mg/ dL 40-60 Cholesterol in LDL [mass/volume] in serum or plasma by direct assay 80 mg/dL 1-129 Serum or plasma cholesterol in VLDL measurement (mass/volume) 13 mg/ dL 5-40 Automated blood complete blood count (hemogram) panel - 02/02/17 10:58 Blood leukocytes automated count (number/volume) 12.4 10*3/uL 4.3-11.0 Blood erythrocytes automated count (number/volume) 7.28 10*6/uL 4.35-5.85 Venous blood hemoglobin measurement (mass/volume) 10.9 g/dL 11.5-16.0 Blood hematocrit (volume fraction) 39 % 35-52 Automated erythrocyte mean corpuscular volume 53 [foz_us] 80-99 Automated erythrocyte mean corpuscular hemoglobin (mass per erythrocyte) 15 pg 25-34 Automated erythrocyte mean corpuscular hemoglobin concentration measurement ( mass/volume) 28 g/dL 32-36 Automated erythrocyte distribution width ratio 27.4 % 10.0-14.5 Automated blood platelet count (count/volume) 693 10*3/uL 130-400 Automated blood platelet mean volume measurement TNP 7.4 -10.4 PT panel in platelet poor plasma by coagulation assay - 02/02/17 11:00 Prothrombin time (PT) in platelet poor plasma by coagulation assay 12.5 s 12.2-14.7 INR in platelet poor plasma or blood by coagulation assay 0.9 0.8-1.4 Activated partial thromboplastin time (aPTT) in platelet poor plasma bycoagulation assay - 02/02/17 11:00 Activated partial thromboplastin time (aPTT) in platelet poor plasma bycoagulation assay 20 s 24-35 Methicillin resistant Staphylococcus aureus (MRSA) screening culture - 11:35 Methicillin resistant Staphylococcus aureus (MRSA) screening culture NEG NRG Capillary blood glucose measurement by glucometer (mass/volume) - 02/02/17 11: 42 Capillary blood glucose measurement by glucometer (mass/volume) 149 mg/dL 70-110 Complete blood count (CBC) with automated white blood cell (WBC) differential - 09/27/17 15:05 Blood leukocytes automated count (number/volume) 12.8 10*3/uL 4.3-11.0 Blood erythrocytes automated count (number/volume) 6.81 10*6/uL 4.35-5.85 Venous blood hemoglobin measurement (mass/volume) 10.4 g/dL 11.5-16.0 Blood hematocrit (volume fraction) 36 % 35-52 Automated erythrocyte mean corpuscular volume 53 [foz_us] 80-99 Automated erythrocyte mean corpuscular hemoglobin (mass per erythrocyte) 15 pg 25-34 Automated erythrocyte mean corpuscular hemoglobin concentration measurement ( mass/volume) 29 g/dL 32-36 Automated erythrocyte distribution width ratio 26.8 % 10.0-14.5 Automated blood platelet count (count/volume) 624 10*3/uL 130-400 Automated blood neutrophils/100 leukocytes 76 % 42-75 Automated blood lymphocytes/100 leukocytes 11 % 12-44 Blood monocytes/100 leukocytes 9 % 0-12 Automated blood eosinophils/100 leukocytes 2 % 0-10 Automated blood basophils/100 leukocytes 1 % 0-10 Blood neutrophils automated count (number/volume) 9.8 10*3 1.8-7.8 Blood lymphocytes automated count (number/volume) 1.4 10*3 1.0-4.0 Blood monocytes automated count (number/volume) 1.2 10*3 0.0-1.0 Automated eosinophil count 0.2 10*3/uL 0.0-0.3 Automated blood basophil count (count/volume) 0.2 10*3/uL 0.0-0.1 Comprehensive metabolic panel - 02/03/17 15:05 Serum or plasma sodium measurement (moles/volume) 133 mmol/L 135-145 Serum or plasma potassium measurement (moles/volume) 4.1 mmol/L 3.6-5.0 Serum or plasma chloride measurement (moles/volume) 101 mmol/L 98-107 Carbon dioxide 22 mmol/L 21-32 Serum or plasma anion gap determination (moles/volume) 10 mmol/L 5-14 Serum or plasma urea nitrogen measurement (mass/volume) 15 mg/dL 7-18 Serum or plasma creatinine measurement (mass/volume) 0.74 mg/dL 0.60-1.30 Serum or plasma urea nitrogen/creatinine mass ratio 20 NRG Serum or plasma creatinine measurement with calculation of estimated glomerular filtration rate > NRG Serum or plasma glucose measurement (mass/volume) 154 mg/dL 70-105 Serum or plasma calcium measurement (mass/volume) 9.2 mg/dL 8.5-10.1 Serum or plasma total bilirubin measurement (mass/volume) 0.5 mg/dL 0.1-1.0 Serum or plasma alkaline phosphatase measurement (enzymatic activity/volume) 127 U/L 40-136 Serum or plasma aspartate aminotransferase measurement (enzymatic activity/ volume) 22 U/L 5-34 Serum or plasma alanine aminotransferase measurement (enzymatic activity/volume ) 15 U/L 0-55 Serum or plasma protein measurement (mass/volume) 7.2 g/dL 6.4-8.2 Serum or plasma albumin measurement (mass/volume) 3.9 g/dL 3.2-4.5 Complete urinalysis with reflex to culture - 02/03/17 17:19 Urine color determination OTHER NRG Urine clarity determination CLOUDY NRG Urine pH measurement by test strip 6 5-9 Specific gravity of urine by test strip 1.020 1.016- 1.022 Urine protein assay by test strip, semi-quantitative 3+ NEGATIVE Urine glucose detection by automated test strip 4+ NEGATIVE Erythrocytes detection in urine sediment by light microscopy 4+ NEGATIVE Urine ketones detection by automated test strip 2+ NEGATIVE Urine nitrite detection by test strip NEGATIVE NEGATIVE Urine total bilirubin detection by test strip NEGATIVE NEGATIVE Urine urobilinogen measurement by automated test strip (mass/volume) 1 mg/dL NORMAL Urine leukocyte esterase detection by dipstick 3+ NEGATIVE Automated urine sediment erythrocyte count by microscopy (number/high power field) [facility] NRG Automated urine sediment leukocyte count by microscopy (number/high power field ) TNT NRG Bacteria detection in urine sediment by light microscopy MODERATE NRG Crystals detection in urine sediment by light microscopy NONE NRG Casts detection in urine sediment by light microscopy NONE NRG Mucus detection in urine sediment by light microscopy NEGATIVE NRG Complete urinalysis with reflex to culture YES NRG Bacterial urine culture - 02/03/17 17:19 URINE CULTURE RESULTS <10,000/ML NRG Capillary blood glucose measurement by glucometer (mass/volume) - 02/03/17 22: 11 Capillary blood glucose measurement by glucometer (mass/volume) 166 mg/dL 70-110 Capillary blood glucose measurement by glucometer (mass/volume) - 02/04/17 06: 24 Capillary blood glucose measurement by glucometer (mass/volume) 115 mg/dL 70-110 Complete blood count (CBC) with automated white blood cell (WBC) differential - 02/04/17 06:37 Blood leukocytes automated count (number/volume) 12.2 10*3/uL 4.3-11.0 Blood erythrocytes automated count (number/volume) 6.01 10*6/uL 4.35-5.85 Venous blood hemoglobin measurement (mass/volume) 9.2 g/dL 11.5-16.0 Blood hematocrit (volume fraction) 33 % 35-52 Automated erythrocyte mean corpuscular volume 54 [foz_us] 80-99 Automated erythrocyte mean corpuscular hemoglobin (mass per erythrocyte) 15 pg 25-34 Automated erythrocyte mean corpuscular hemoglobin concentration measurement ( mass/volume) 28 g/dL 32-36 Automated erythrocyte distribution width ratio 26.2 % 10.0-14.5 Automated blood platelet count (count/volume) 590 10*3/uL 130-400 Automated blood platelet mean volume measurement TNP 7.4 -10.4 Automated blood neutrophils/100 leukocytes 71 % 42-75 Automated blood lymphocytes/100 leukocytes 17 % 12-44 Blood monocytes/100 leukocytes 8 % 0-12 Automated blood eosinophils/100 leukocytes 2 % 0-10 Automated blood basophils/100 leukocytes 2 % 0-10 Blood neutrophils automated count (number/volume) 8.7 10*3 1.8-7.8 Blood lymphocytes automated count (number/volume) 2.1 10*3 1.0-4.0 Blood monocytes automated count (number/volume) 1.0 10*3 0.0-1.0 Automated eosinophil count 0.3 10*3/uL 0.0-0.3 Automated blood basophil count (count/volume) 0.2 10*3/uL 0.0-0.1 Comprehensive metabolic panel - 02/04/17 06:37 Serum or plasma sodium measurement (moles/volume) 137 mmol/L 135-145 Serum or plasma potassium measurement (moles/volume) 3.9 mmol/L 3.6-5.0 Serum or plasma chloride measurement (moles/volume) 105 mmol/L 98-107 Carbon dioxide 19 mmol/L 21-32 Serum or plasma anion gap determination (moles/volume) 13 mmol/L 5-14 Serum or plasma urea nitrogen measurement (mass/volume) 8 mg/dL 7-18 Serum or plasma creatinine measurement (mass/volume) 0.61 mg/dL 0.60-1.30 Serum or plasma urea nitrogen/creatinine mass ratio 13 NRG Serum or plasma creatinine measurement with calculation of estimated glomerular filtration rate > NRG Serum or plasma glucose measurement (mass/volume) 100 mg/dL 70-105 Serum or plasma calcium measurement (mass/volume) 8.8 mg/dL 8.5-10.1 Serum or plasma total bilirubin measurement (mass/volume) 0.5 mg/dL 0.1-1.0 Serum or plasma alkaline phosphatase measurement (enzymatic activity/volume) 105 U/L 40-136 Serum or plasma aspartate aminotransferase measurement (enzymatic activity/ volume) 16 U/L 5-34 Serum or plasma alanine aminotransferase measurement (enzymatic activity/volume ) 13 U/L 0-55 Serum or plasma protein measurement (mass/volume) 6.4 g/dL 6.4-8.2 Serum or plasma albumin measurement (mass/volume) 3.6 g/dL 3.2-4.5 Capillary blood glucose measurement by glucometer (mass/volume) - 02/04/17 11: 03 Capillary blood glucose measurement by glucometer (mass/volume) 179 mg/dL 70-110 Capillary blood glucose measurement by glucometer (mass/volume) - 02/04/17 15: 38 Capillary blood glucose measurement by glucometer (mass/volume) 141 mg/dL 70-110 Capillary blood glucose measurement by glucometer (mass/volume) - 02/04/17 20: 33 Capillary blood glucose measurement by glucometer (mass/volume) 208 mg/dL 70-110 Capillary blood glucose measurement by glucometer (mass/volume) - 02/05/17 05: 03 Capillary blood glucose measurement by glucometer (mass/volume) 107 mg/dL 70-110 Complete blood count (CBC) with automated white blood cell (WBC) differential - 02/05/17 06:13 Blood leukocytes automated count (number/volume) 11.8 10*3/uL 4.3-11.0 Blood erythrocytes automated count (number/volume) 6.32 10*6/uL 4.35-5.85 Venous blood hemoglobin measurement (mass/volume) 9.7 g/dL 11.5-16.0 Blood hematocrit (volume fraction) 34 % 35-52 Automated erythrocyte mean corpuscular volume 54 [foz_us] 80-99 Automated erythrocyte mean corpuscular hemoglobin (mass per erythrocyte) 15 pg 25-34 Automated erythrocyte mean corpuscular hemoglobin concentration measurement ( mass/volume) 28 g/dL 32-36 Automated erythrocyte distribution width ratio 26.6 % 10.0-14.5 Automated blood platelet count (count/volume) 576 10*3/uL 130-400 Automated blood platelet mean volume measurement TNP 7.4 -10.4 Automated blood neutrophils/100 leukocytes 71 % 42-75 Automated blood lymphocytes/100 leukocytes 17 % 12-44 Blood monocytes/100 leukocytes 9 % 0-12 Automated blood eosinophils/100 leukocytes 2 % 0-10 Automated blood basophils/100 leukocytes 1 % 0-10 Blood neutrophils automated count (number/volume) 8.3 10*3 1.8-7.8 Blood lymphocytes automated count (number/volume) 2.0 10*3 1.0-4.0 Blood monocytes automated count (number/volume) 1.1 10*3 0.0-1.0 Automated eosinophil count 0.3 10*3/uL 0.0-0.3 Automated blood basophil count (count/volume) 0.1 10*3/uL 0.0-0.1 Comprehensive metabolic panel - 02/05/17 06:13 Serum or plasma sodium measurement (moles/volume) 138 mmol/L 135-145 Serum or plasma potassium measurement (moles/volume) 3.7 mmol/L 3.6-5.0 Serum or plasma chloride measurement (moles/volume) 105 mmol/L 98-107 Carbon dioxide 23 mmol/L 21-32 Serum or plasma anion gap determination (moles/volume) 10 mmol/L 5-14 Serum or plasma urea nitrogen measurement (mass/volume) 7 mg/dL 7-18 Serum or plasma creatinine measurement (mass/volume) 0.55 mg/dL 0.60-1.30 Serum or plasma urea nitrogen/creatinine mass ratio 13 NRG Serum or plasma creatinine measurement with calculation of estimated glomerular filtration rate > NRG Serum or plasma glucose measurement (mass/volume) 97 mg/dL 70-105 Serum or plasma calcium measurement (mass/volume) 9.3 mg/dL 8.5-10.1 Serum or plasma total bilirubin measurement (mass/volume) 0.4 mg/dL 0.1-1.0 Serum or plasma alkaline phosphatase measurement (enzymatic activity/volume) 111 U/L 40-136 Serum or plasma aspartate aminotransferase measurement (enzymatic activity/ volume) 19 U/L 5-34 Serum or plasma alanine aminotransferase measurement (enzymatic activity/volume ) 12 U/L 0-55 Serum or plasma protein measurement (mass/volume) 6.6 g/dL 6.4-8.2 Serum or plasma albumin measurement (mass/volume) 3.6 g/dL 3.2-4.5 Capillary blood glucose measurement by glucometer (mass/volume) - 02/05/17 10: 52 Capillary blood glucose measurement by glucometer (mass/volume) 128 mg/dL 70-110 Whole blood basic metabolic panel - 02/24/17 11:43 Serum or plasma sodium measurement (moles/volume) 136 mmol/L 135-145 Serum or plasma potassium measurement (moles/volume) 3.7 mmol/L 3.6-5.0 Serum or plasma chloride measurement (moles/volume) 102 mmol/L 98-107 Carbon dioxide 19 mmol/L 21-32 Serum or plasma anion gap determination (moles/volume) 15 mmol/L 5-14 Serum or plasma urea nitrogen measurement (mass/volume) 7 mg/dL 7-18 Serum or plasma creatinine measurement (mass/volume) 0.64 mg/dL 0.60-1.30 Serum or plasma urea nitrogen/creatinine mass ratio 11 NRG Serum or plasma creatinine measurement with calculation of estimated glomerular filtration rate > NRG Serum or plasma glucose measurement (mass/volume) 158 mg/dL 70-105 Serum or plasma calcium measurement (mass/volume) 9.7 mg/dL 8.5-10.1 Comprehensive metabolic panel - 03/02/17 08:45 Serum or plasma sodium measurement (moles/volume) 139 mmol/L 135-145 Serum or plasma potassium measurement (moles/volume) 5.3 mmol/L 3.6-5.0 Serum or plasma chloride measurement (moles/volume) 105 mmol/L 98-107 Carbon dioxide 22 mmol/L 21-32 Serum or plasma anion gap determination (moles/volume) 12 mmol/L 5-14 Serum or plasma urea nitrogen measurement (mass/volume) 7 mg/dL 7-18 Serum or plasma creatinine measurement (mass/volume) 0.66 mg/dL 0.60-1.30 Serum or plasma urea nitrogen/creatinine mass ratio 11 NRG Serum or plasma creatinine measurement with calculation of estimated glomerular filtration rate > NRG Serum or plasma glucose measurement (mass/volume) 70 mg/dL 70-105 Serum or plasma calcium measurement (mass/volume) 9.4 mg/dL 8.5-10.1 Serum or plasma total bilirubin measurement (mass/volume) 0.7 mg/dL 0.1-1.0 Serum or plasma alkaline phosphatase measurement (enzymatic activity/volume) 90 U/L 40-136 Serum or plasma aspartate aminotransferase measurement (enzymatic activity/ volume) 29 U/L 5-34 Serum or plasma alanine aminotransferase measurement (enzymatic activity/volume ) 13 U/L 0-55 Serum or plasma protein measurement (mass/volume) 7.4 g/dL 6.4-8.2 Serum or plasma albumin measurement (mass/volume) 3.8 g/dL 3.2-4.5 Magnesium - 03/02/17 08:45 Magnesium 1.7 mg/dL 1.8-2.4 Complete blood count (CBC) with automated white blood cell (WBC) differential - 03/02/17 08:45 Blood leukocytes automated count (number/volume) 10.5 10*3/uL 4.3-11.0 Blood erythrocytes automated count (number/volume) 6.93 10*6/uL 4.35-5.85 Venous blood hemoglobin measurement (mass/volume) 10.7 g/dL 11.5-16.0 Blood hematocrit (volume fraction) 38 % 35-52 Automated erythrocyte mean corpuscular volume 55 [foz_us] 80-99 Automated erythrocyte mean corpuscular hemoglobin (mass per erythrocyte) 15 pg 25-34 Automated erythrocyte mean corpuscular hemoglobin concentration measurement ( mass/volume) 28 g/dL 32-36 Automated erythrocyte distribution width ratio 27.4 % 10.0-14.5 Automated blood platelet count (count/volume) 425 10*3/uL 130-400 Automated blood platelet mean volume measurement TNP 7.4 -10.4 Automated blood neutrophils/100 leukocytes 62 % 42-75 Automated blood lymphocytes/100 leukocytes 26 % 12-44 Blood monocytes/100 leukocytes 8 % 0-12 Automated blood eosinophils/100 leukocytes 2 % 0-10 Automated blood basophils/100 leukocytes 2 % 0-10 Blood neutrophils automated count (number/volume) 6.5 10*3 1.8-7.8 Blood lymphocytes automated count (number/volume) 2.7 10*3 1.0-4.0 Blood monocytes automated count (number/volume) 0.9 10*3 0.0-1.0 Automated eosinophil count 0.2 10*3/uL 0.0-0.3 Automated blood basophil count (count/volume) 0.2 10*3/uL 0.0-0.1 Blood blood smear finding identification by light microscopy YES NRG Blood manual differential performed detection - 03/02/17 08:45 Blood anisocytosis detection by light microscopy MARKED NRG Blood ovalocytes detection by light microscopy MODERATE NRG Blood poikilocytosis detection by light microscopy MARKED NRG Blood hypochromia detection by light microscopy MODERATE NRG Blood microcytes detection by light microscopy MARKED NRG Blood rouleaux detection by light microscopy SLIGHT NRG Blood target cells detection by light microscopy MARKED NRG Complete urinalysis with reflex to culture - 03/02/17 10:40 Urine color determination YELLOW NRG Urine clarity determination CLEAR NRG Urine pH measurement by test strip 7 5-9 Specific gravity of urine by test strip 1.010 1.016- 1.022 Urine protein assay by test strip, semi-quantitative NEGATIVE NEGATIVE Urine glucose detection by automated test strip 4+ NEGATIVE Erythrocytes detection in urine sediment by light microscopy NEGATIVE NEGATIVE Urine ketones detection by automated test strip NEGATIVE NEGATIVE Urine nitrite detection by test strip NEGATIVE NEGATIVE Urine total bilirubin detection by test strip NEGATIVE NEGATIVE Urine urobilinogen measurement by automated test strip (mass/volume) NORMAL NORMAL Urine leukocyte esterase detection by dipstick 3+ NEGATIVE Automated urine sediment erythrocyte count by microscopy (number/high power field) [HPF] NRG Automated urine sediment leukocyte count by microscopy (number/high power field ) [HPF] NRG Bacteria detection in urine sediment by light microscopy TRACE NRG Squamous epithelial cells detection in urine sediment by light microscopy >50 NRG Crystals detection in urine sediment by light microscopy NONE NRG Casts detection in urine sediment by light microscopy NONE NRG Mucus detection in urine sediment by light microscopy NEGATIVE NRG Complete urinalysis with reflex to culture NO NRG Complete urinalysis with reflex to culture - 04/08/17 08:35 Urine color determination YELLOW NRG Urine clarity determination CLEAR NRG Urine pH measurement by test strip 7 5-9 Specific gravity of urine by test strip 1.015 1.016- 1.022 Urine protein assay by test strip, semi-quantitative NEGATIVE NEGATIVE Urine glucose detection by automated test strip 4+ NEGATIVE Erythrocytes detection in urine sediment by light microscopy NEGATIVE NEGATIVE Urine ketones detection by automated test strip NEGATIVE NEGATIVE Urine nitrite detection by test strip NEGATIVE NEGATIVE Urine total bilirubin detection by test strip NEGATIVE NEGATIVE Urine urobilinogen measurement by automated test strip (mass/volume) NORMAL NORMAL Urine leukocyte esterase detection by dipstick 1+ NEGATIVE Automated urine sediment erythrocyte count by microscopy (number/high power field) NONE NRG Automated urine sediment leukocyte count by microscopy (number/high power field ) [HPF] NRG Bacteria detection in urine sediment by light microscopy TRACE NRG Squamous epithelial cells detection in urine sediment by light microscopy 5-10 NRG Crystals detection in urine sediment by light microscopy NONE NRG Casts detection in urine sediment by light microscopy NONE NRG Mucus detection in urine sediment by light microscopy NEGATIVE NRG Complete urinalysis with reflex to culture YES NRG Yeast detection in urine sediment by light microscopy LARGE NRG Bacterial urine culture - 04/08/17 08:35 Bacterial urine culture [id number] NRG COLONY COUNT >100,000/ML NRG FTX;REPORTABLE PLUS, NRG URINE CULTURE RESULTS <10,000/ML NRG FREE TEXT ENTRY 2 MIXED GRAM POSITIVES LESS NRG Automated blood complete blood count (hemogram) panel - 04/20/17 09:12 Blood leukocytes automated count (number/volume) 9.6 10*3/uL 4.3-11.0 Blood erythrocytes automated count (number/volume) 6.16 10*6/uL 4.35-5.85 Venous blood hemoglobin measurement (mass/volume) 9.4 g/dL 11.5-16.0 Blood hematocrit (volume fraction) 34 % 35-52 Automated erythrocyte mean corpuscular volume 55 [foz_us] 80-99 Automated erythrocyte mean corpuscular hemoglobin (mass per erythrocyte) 15 pg 25-34 Automated erythrocyte mean corpuscular hemoglobin concentration measurement ( mass/volume) 28 g/dL 32-36 Automated erythrocyte distribution width ratio 25.2 % 10.0-14.5 Automated blood platelet count (count/volume) 476 10*3/uL 130-400 Automated blood platelet mean volume measurement TNP 7.4 -10.4 Comprehensive metabolic panel - 04/20/17 09:12 Serum or plasma sodium measurement (moles/volume) 138 mmol/L 135-145 Serum or plasma potassium measurement (moles/volume) 3.9 mmol/L 3.6-5.0 Serum or plasma chloride measurement (moles/volume) 102 mmol/L 98-107 Carbon dioxide 25 mmol/L 21-32 Serum or plasma anion gap determination (moles/volume) 11 mmol/L 5-14 Serum or plasma urea nitrogen measurement (mass/volume) 18 mg/dL 7-18 Serum or plasma creatinine measurement (mass/volume) 0.84 mg/dL 0.60-1.30 Serum or plasma urea nitrogen/creatinine mass ratio 21 NRG Serum or plasma creatinine measurement with calculation of estimated glomerular filtration rate > NRG Serum or plasma glucose measurement (mass/volume) 261 mg/dL 70-105 Serum or plasma calcium measurement (mass/volume) 8.8 mg/dL 8.5-10.1 Serum or plasma total bilirubin measurement (mass/volume) 0.3 mg/dL 0.1-1.0 Serum or plasma alkaline phosphatase measurement (enzymatic activity/volume) 146 U/L 40-136 Serum or plasma aspartate aminotransferase measurement (enzymatic activity/ volume) 36 U/L 5-34 Serum or plasma alanine aminotransferase measurement (enzymatic activity/volume ) 41 U/L 0-55 Serum or plasma protein measurement (mass/volume) 7.1 g/dL 6.4-8.2 Serum or plasma albumin measurement (mass/volume) 3.8 g/dL 3.2-4.5 Complete urinalysis with reflex to culture - 04/20/17 10:20 Urine color determination YELLOW NRG Urine clarity determination SLIGHTLY CLOUDY NRG Urine pH measurement by test strip 6 5-9 Specific gravity of urine by test strip 1.010 1.016- 1.022 Urine protein assay by test strip, semi-quantitative 3+ NEGATIVE Urine glucose detection by automated test strip 4+ NEGATIVE Erythrocytes detection in urine sediment by light microscopy 3+ NEGATIVE Urine ketones detection by automated test strip NEGATIVE NEGATIVE Urine nitrite detection by test strip NEGATIVE NEGATIVE Urine total bilirubin detection by test strip NEGATIVE NEGATIVE Urine urobilinogen measurement by automated test strip (mass/volume) NORMAL NORMAL Urine leukocyte esterase detection by dipstick 3+ NEGATIVE Automated urine sediment erythrocyte count by microscopy (number/high power field) [HPF] NRG Automated urine sediment leukocyte count by microscopy (number/high power field ) TNTC NRG Bacteria detection in urine sediment by light microscopy LARGE NRG Squamous epithelial cells detection in urine sediment by light microscopy 5-10 NRG Crystals detection in urine sediment by light microscopy NONE NRG Casts detection in urine sediment by light microscopy NONE NRG Mucus detection in urine sediment by light microscopy NEGATIVE NRG Complete urinalysis with reflex to culture YES NRG Bacterial urine culture - 04/20/17 10:20 Bacterial urine culture SEE COMMEN NRG COLONY COUNT . NRG Bacterial susceptibility panel - 04/20/17 10:20 Oxacillin susceptibility test by minimum inhibitory concentration > = NRG Gentamicin susceptibility test by minimum inhibitory concentration < = NRG Trimethoprim/sulfamethoxazole susceptibility test by minimum inhibitoryconcentration 160 NRG Vancomycin susceptibility test by minimum inhibitory concentration 1 NRG Levofloxacin susceptibility test by minimum inhibitory concentration >= NRG Rifampin susceptibility test by minimum inhibitory concentration <= NRG Tetracycline susceptibility test by minimum inhibitory concentration <= NRG Ciprofloxacin susceptibility test by minimum inhibitory concentration R NRG Complete blood count (CBC) with automated white blood cell (WBC) differential - 06/08/18 10:50 Blood leukocytes automated count (number/volume) 8.7 10*3/uL 4.3-11.0 Blood erythrocytes automated count (number/volume) 6.89 10*6/uL 4.35-5.85 Venous blood hemoglobin measurement (mass/volume) 12.3 g/dL 11.5-16.0 Blood hematocrit (volume fraction) 40 % 35-52 Automated erythrocyte mean corpuscular volume 59 [foz_us] 80-99 Automated erythrocyte mean corpuscular hemoglobin (mass per erythrocyte) 18 pg 25-34 Automated erythrocyte mean corpuscular hemoglobin concentration measurement ( mass/volume) 31 g/dL 32-36 Automated erythrocyte distribution width ratio 26.0 % 10.0-14.5 Automated blood platelet count (count/volume) 344 10*3/uL 130-400 Automated blood platelet mean volume measurement TNP 7.4 -10.4 Automated blood neutrophils/100 leukocytes 55 % 42-75 Automated blood lymphocytes/100 leukocytes 31 % 12-44 Blood monocytes/100 leukocytes 10 % 0-12 Automated blood eosinophils/100 leukocytes 3 % 0-10 Automated blood basophils/100 leukocytes 2 % 0-10 Blood neutrophils automated count (number/volume) 4.7 10*3 1.8-7.8 Blood lymphocytes automated count (number/volume) 2.7 10*3 1.0-4.0 Blood monocytes automated count (number/volume) 0.9 10*3 0.0-1.0 Automated eosinophil count 0.2 10*3/uL 0.0-0.3 Automated blood basophil count (count/volume) 0.1 10*3/uL 0.0-0.1 Serum or plasma C reactive protein measurement (mass/volume) - 06/08/18 10:50 Serum or plasma C reactive protein measurement (mass/volume) 0.59 mg /dL 0.00-0.50 Complete urinalysis with reflex to culture - 06/10/18 08:09 Urine color determination YELLOW NRG Urine clarity determination CLEAR NRG Urine pH measurement by test strip 6 5-9 Specific gravity of urine by test strip 1.015 1.016- 1.022 Urine protein assay by test strip, semi-quantitative 1+ NEGATIVE Urine glucose detection by automated test strip 4+ NEGATIVE Erythrocytes detection in urine sediment by light microscopy 2+ NEGATIVE Urine ketones detection by automated test strip NEGATIVE NEGATIVE Urine nitrite detection by test strip NEGATIVE NEGATIVE Urine total bilirubin detection by test strip NEGATIVE NEGATIVE Urine urobilinogen measurement by automated test strip (mass/volume) NORMAL NORMAL Urine leukocyte esterase detection by dipstick 1+ NEGATIVE Automated urine sediment erythrocyte count by microscopy (number/high power field) [HPF] NRG Automated urine sediment leukocyte count by microscopy (number/high power field ) [HPF] NRG Bacteria detection in urine sediment by light microscopy NEGATIVE NRG Squamous epithelial cells detection in urine sediment by light microscopy 2-5 NRG Crystals detection in urine sediment by light microscopy NONE NRG Casts detection in urine sediment by light microscopy NONE NRG Mucus detection in urine sediment by light microscopy NEGATIVE NRG Complete urinalysis with reflex to culture YES NRG Bacterial urine culture - 06/10/18 08:09 Bacterial urine culture SEE REPORT NRG COLONY COUNT . NRG Complete urinalysis with reflex to culture - 06/15/18 08:20 Urine color determination YELLOW NRG Urine clarity determination CLEAR NRG Urine pH measurement by test strip 6 5-9 Specific gravity of urine by test strip 1.015 1.016- 1.022 Urine protein assay by test strip, semi-quantitative 2+ NEGATIVE Urine glucose detection by automated test strip 4+ NEGATIVE Erythrocytes detection in urine sediment by light microscopy 2+ NEGATIVE Urine ketones detection by automated test strip NEGATIVE NEGATIVE Urine nitrite detection by test strip NEGATIVE NEGATIVE Urine total bilirubin detection by test strip NEGATIVE NEGATIVE Urine urobilinogen measurement by automated test strip (mass/volume) NORMAL NORMAL Urine leukocyte esterase detection by dipstick 1+ NEGATIVE Automated urine sediment erythrocyte count by microscopy (number/high power field) [HPF] NRG Automated urine sediment leukocyte count by microscopy (number/high power field ) [HPF] NRG Bacteria detection in urine sediment by light microscopy FEW NRG Squamous epithelial cells detection in urine sediment by light microscopy 5-10 NRG Crystals detection in urine sediment by light microscopy NONE NRG Casts detection in urine sediment by light microscopy NONE NRG Mucus detection in urine sediment by light microscopy NEGATIVE NRG Complete urinalysis with reflex to culture YES NRG Bacterial urine culture - 06/15/18 08:20 Bacterial urine culture SEE REPORT NRG COLONY COUNT . NRG Encounters ACCT No. Visit Date/Time Discharge Status Pt. Type Provider Facility Loc./Unit Complaint [id number] 06/15/2018 08:12:00 06/15/2018 23:59:59 CLS Outpatient NATHANIEL MOFFETT MD [facility] LAB Z01.810,N39.0 [id number] 06/10/2018 07:57:00 06/10/2018 23:59:59 CLS Outpatient NATHANIEL MOFFETT MD [facility] LAB PREOPERATIVE CARDIOVASCULAR EXAM [id number] 06/09/2018 16:16:00 06/09/2018 23:59:59 CLS Outpatient KYMBERLY MENSAH DAVID Q [facility] RAD CHRONIC ULCERATION TO THE LEFT 5TH METATARSAL HEAD [id number] 06/08/2018 10:35:00 06/08/2018 23:59:59 CLS Outpatient KYMBERLY MENSAH DAVID Q [facility] LAB CELLULITIS LEFT FOOT [id number] 04/26/2018 08:55:00 04/26/2018 23:59:59 CLS Outpatient JOSEY RIDER DO [facility] RAD PAD OF LOWER EXTREMITIES [id number] 03/28/2018 08:14:00 03/28/2018 23:59:59 CLS Outpatient ABRAN MARCUM FACC, JOAQUÍN LUI CCDS [facility] RT CAD,CAROTID ARTERY STENOSIS,HLD,HTN [id number] 03/22/2018 10:19:00 03/22/2018 23:59:59 CLS Outpatient ABRAN MARCUM FACC, JOAQUÍN LUI CCDS [facility] CARD CAD,CAROTID ARTERY STENOSIS,HLD,HTN [id number] 08/25/2017 08:12:00 08/25/2017 23:59:59 CLS Outpatient ADRY BARRERAJOSEY Kati [facility] RAD RIGHT ARM PAIN/ SWELLING [id number] 08/09/2017 14:36:00 08/09/2017 23:59:59 CLS Preadmit ADRY BARRERA JOSEY Kati [facility] RAD BREAST ABNORMALITY [id number] 07/20/2017 10:20:00 07/20/2017 23:59:59 CLS Preadmit JOSEY RIDER DO [facility] RAD SCREENING Z12.31 [id number] 06/25/2017 10:41:00 06/25/2017 11:36:00 DIS Outpatient JOSEY RIDER DO [facility] REHAB COMP FX L1 S/P KYPHOPLASTY [id number] 05/31/2017 11:02:00 06/01/2017 00:01:00 DIS Outpatient JOSEY RIDER DO [facility] REHAB COMP FX L1 S/P KYPHOPLASTY [id number] 04/20/2017 09:00:00 04/20/2017 23:59:59 CLS Outpatient URI LEIVA MD [facility] LAB Z01.810 Z01.818 [id number] 04/08/2017 08:25:00 04/08/2017 23:59:59 CLS Outpatient URI LEIVA MD [facility] LAB N39.0,I65.23,Z01.818 [id number] 04/07/2017 12:45:00 04/07/2017 23:59:59 CLS Outpatient JOSEY RIDER DO [facility] ME1.0 [id number] 03/31/2017 10:14:00 03/31/2017 23:59:59 CLS Preadmit JOSEY RIDER DO [facility] M81.0 [id number] 03/18/2017 10:16:00 03/18/2017 23:59:59 CLS Outpatient JOSEY RIDER DO [facility] RAD LUMBAR COMPRESSION FRACTURES [id number] 03/16/2017 07:30:00 03/16/2017 23:59:59 CLS Outpatient ANAYELI DICKENS [facility] CARD CAD [id number] 03/02/2017 07:42:00 03/02/2017 23:59:59 CLS Outpatient ANAYELI DICKENS [facility] CARD CAD [id number] 03/02/2017 08:20:00 03/02/2017 11:11:00 DIS Emergency LOYDA MCKEON MD [facility] ER FALL [id number] 02/24/2017 11:30:00 02/24/2017 23:59:59 CLS Outpatient ANAYELI DICKENS [facility] RAD CAROTID ARTERY STENOSIS,CAD [id number] 02/16/2017 07:51:00 02/16/2017 23:59:59 CLS Outpatient JOSEY RIDER DO [facility] RAD N39.0 EVALUATE FOR FISTULA [id number] 02/03/2017 18:02:00 02/05/2017 14:30:00 DIS Inpatient CARMEN RAMIREZ DO [facility] 4TH UTI W RESISTANCE,AMS, HYPONATREMIC,S/P KYPHOPLASTY [id number] 02/02/2017 10:24:00 02/02/2017 23:59:59 CLS Outpatient ANAYELI DICKENS [facility] LAB I25.10 [id number] 02/02/2017 11:10:00 02/02/2017 16:45:00 DIS Outpatient PRAKASH MOJICA MD [facility] SDC L1 COMPRESSION FRACTURE [id number] 01/29/2017 05:26:00 01/29/2017 10:38:00 DIS Outpatient PRAKASH MOJICA MD [facility] PREOP L1 COMPRESSION FRACTURE [id number] 01/28/2017 10:14:00 01/28/2017 23:59:59 CLS Outpatient JOSEY RIDER DO [facility] RAD FRACTURE L1 [id number] 01/26/2017 09:50:00 01/26/2017 23:59:59 CLS Outpatient JOSEY RIDER DO [facility] RAD COMPRESSION FX [id number] 01/14/2017 13:33:00 01/14/2017 16:54:00 DIS Emergency CONNOR MODI [facility] ER LOWER BACK PAIN-FALL [id number] 09/16/2016 00:16:00 09/16/2016 23:59:59 CLS Preadmit JOSEY RIDER DO [facility] LAB R19.7 [id number] 06/17/2016 13:44:00 09/15/2016 00:01:00 DIS Outpatient RIDERJOSEY TILLEY DO [facility] LAB R19.7 [id number] 08/21/2016 08:28:00 08/21/2016 23:59:59 CLS Outpatient ANAYELI DICKENS [facility] LAB HLD,CAD,HTN [id number] 08/03/2016 12:54:00 08/03/2016 15:49:00 DIS Emergency KAYLIN DONIS [facility] ER FALL/LEFT HAND INJURY [id number] 07/20/2016 08:33:00 07/20/2016 23:59:59 CLS Outpatient JOSEY RIDER DO [facility] RAD F/U RIGHT BREAST DENSITY [id number] 04/09/2016 07:10:00 04/09/2016 23:59:59 CLS Outpatient JOSEY RIDER DO [facility] RAD URINARY/FECAL INCONTINENCE [id number] 02/14/2016 08:03:00 02/14/2016 23:59:59 CLS Outpatient ANAYELI DICKENS [facility] LAB HLD,CAD [id number] 01/24/2016 08:38:00 01/24/2016 23:59:59 CLS Outpatient RIDERJOSEY TILLEY DO [facility] RAD F/U [id number] 12/30/2015 11:13:00 12/30/2015 23:59:59 CLS Outpatient ANAYELI DICKENS [facility] RAD CAROTID ARTERY STENOSIS [id number] 12/26/2015 07:55:00 12/26/2015 23:59:59 CLS Outpatient ANAYELI DICKENSP [facility] LAB CAROTID ARTERY STENOSIS,HLD [id number] 12/25/2015 08:37:00 12/25/2015 23:59:59 CLS Outpatient ANAYELI DICKENSP [facility] LAB CAROTID ARTERY STENOSIS, HDL [id number] 12/03/2015 09:59:00 12/03/2015 14:45:00 DIS Emergency LAURIE MARCUM, RD Newman [facility] ER CHEST PAIN/FATIGUE UPPER LEG PAIN [id number] 08/05/2015 07:42:00 08/05/2015 23:59:59 CLS Outpatient JOSEY RIDER DO [facility] RAD ABNORMAL MAMMO [id number] 07/25/2015 08:25:00 07/25/2015 23:59:59 CLS Outpatient JOSEY RIDER DO [facility] RAD SCREENING [id number] 03/28/2015 06:02:00 03/28/2015 23:59:59 CLS Outpatient KYMBERLY DPM, DAVID Q [facility] CARD CHRONIC ULCER L 5TH METATARSAL [id number] 02/15/2015 11:20:00 02/15/2015 15:45:00 DIS Outpatient KYMBERLY DPM, DAVID Q [facility] BUNION [id number] 02/11/2015 07:53:00 02/11/2015 23:59:59 CLS Outpatient KYMBERLY DPM, DAVID Q [facility] PREOP BUNION [id number] 01/31/2015 06:00:00 01/31/2015 07:37:00 DIS Outpatient KYMBERLY DPM, DAVID Q [facility] BUNION LEFT FOOT [id number] 01/29/2015 07:28:00 01/29/2015 23:59:59 CLS Outpatient ABRAN MARCUM FACC, JOAQUÍN LUI CCDS [facility] CARD CAD [id number] 01/25/2015 08:23:00 01/25/2015 23:59:59 CLS Outpatient ABRAN MARCUM FACC, JOAQUÍN LUI CCDS [facility] CARD CAD [id number] 01/17/2015 12:02:00 01/17/2015 23:59:59 CLS Outpatient KYMBERLY DPM, DAVID Q [facility] PREOP BUNION LEFT FOOT [id number] 09/24/2014 21:57:00 09/25/2014 12:02:00 DIS Inpatient JOSEY RIDER DO [facility] 4TH HYPOGLYCEMIA [id number] 09/23/2014 11:46:00 09/23/2014 14:06:00 DIS Emergency ROBERT JAMISON SEARCH ENGINE OPTIMIZATION STRATEGIST [facility] ER LOW BLOOD SUGAR [id number] 09/06/2014 09:10:00 09/06/2014 10:45:[address] SULLIVAN MD [facility] ER HYPOGLYCEMIA [id number] 08/01/2014 15:58:00 08/03/2014 10:15:00 DIS Inpatient JOSEY RIDER DO [facility] 4TH UNCONTROLLED DIABETES [id number] 06/27/2013 09:15:00 06/27/2013 23:59:59 CLS Outpatient JOSEY RIDER DO [facility] RAD SCREENING [id number] 05/29/2013 07:57:00 05/29/2013 10:45:[address] SULLIVAN MD [facility] ER POSS VAG ABSCESS [id number] 12/20/2012 11:53:00 12/20/2012 23:59:59 CLS Outpatient BENIINGSNEY SEARCH ENGINE OPTIMIZATION STRATEGIST [facility] RAD PAIN AND SWELLING IN RT ANKLE [id number] 08/06/2014 16:39:00 Document Registration [id number] 08/06/2014 16:39:00 Document Registration [id number] 08/06/2014 16:39:00 Document Registration [id number] 08/06/2014 16:39:00 Document Registration [id number] 08/06/2014 16:39:00 Document Registration [id number] 08/06/2014 16:39:00 Document Registration [id number] 08/06/2014 16:39:00 Document Registration [id number] 07/17/2014 09:06:00 Document Registration [id number] 12/03/2011 09:20:00 Document Registration [id number] 11/16/2011 09:00:00 Document Registration [id number] 06/03/2011 09:07:00 Document Registration [id number] 10/02/2010 06:37:00 Document Registration [id number] 09/18/2010 10:27:00 Document Registration [id number] 06/24/2009 08:17:00 Document Registration [id number] 08/25/2017 10:15:00 08/25/2017 23:59:00 DIS Outpatient JOSEY RIDERbIEmily 02/15/2015 11:23:52 ACT Document Registration
[2018-07-03] MEDS ORDERED: HYDROcodone/APAP 5 MG/325 MG (LORTAB) TAB PO STA (14:48)
--- NOTE | 2018-07-03 15:33 | Diagnostic Imaging Report ---
INDICATION: Hip injury, fracture. COMPARISON: None. EXAMINATION: Single view pelvis and three views of the left hip were obtained. FINDINGS: Angulated slightly displaced subcapital hip fracture. There has been prior arthroplasty on the right. The bony pelvis is intact. IMPRESSION: Subcapital fracture of the left hip. Dictated by: Dictated on workstation # [id number]
--- NOTE | 2018-07-03 16:00 | ED Lower Extremity ---
General Chief Complaint: Lower Extremity Stated Complaint: POST OP/UNABLE TO USE R LEG Nursing Triage Note: PT PRESENTS TO ER WITH COMPLAINT OF RIGHT LEG PAIN THAT STARTED TODAY. PT RECENTLY HAD SURGERY ON LEFT LEG, DUE TO BLOCKAGE. DAUGHTER STATES THEY WENT IN THROUGH HER RIGHT GROIN TO GET TO THE LEFT LEG. DENIES INJURY. Nursing Sepsis Screen: No Definite Risk History of Present Illness Date Seen by Provider: Jul 03, 2018 Time Seen by Provider: 14:30 Initial Comments 77-year-old female comes for left hip pain. Approximately 3 weeks ago she had a catheterization on the right groin for blockage on the left leg and stents placed by Dr. Ames at [place]. She did fine and had no complications. Over the last week, she reports increased left leg pain and inability to bear weight on left leg. She had two falls at home, on Jun 16 and . Patient has known history of dementia. She lives at home with her son and has a caregiver that comes in. She has been using a walker for ambulation. She denies any head injury with either fall. She denies any radicular symptoms in her left leg. Onset: last week Pain/Injury Location: left hip, left leg Method of Injury: unknown, fell Modifying Factors: Improves With Rest Allergies and Home Medications Allergies Coded Allergies: No Known Drug Allergies (Unverified , 01/29/17) Home Medications Aspirin 81 Mg Tablet.dr, 81 MG PO DAILY, (Reported) Atorvastatin Calcium 80 Mg Tablet, 80 MG PO DAILY, (Reported) Canagliflozin 100 Mg Tablet, 100 MG PO DAILY, (Reported) Ciprofloxacin HCl 500 Mg Tablet, 500 MG PO BID Prescribed by: CARMEN RAMIREZ on 02/05/17 1125 Clopidogrel Bisulfate 75 Mg Tablet, 75 MG PO DAILY, (Reported) Cyanocobalamin 1,000 Mcg/Ml Inj, 1,000 MCG IJ OF MONTH, (Reported) Diclofenac Sodium 100 Gm Gel..gram., TOP BID PRN for JOINT PAIN, (Reported) Donepezil HCl 10 Mg Tablet, 10 MG PO HS, (Reported) Ergocalciferol (Vitamin D2) 50,000 Unit Capsule, 50,000 UNITS PO Mo, (Reported) Esomeprazole Magnesium 40 Mg Cap, 40 MG PO DAILY, (Reported) Insulin Glargine,Hum.rec.anlog 100 Unit/1 Ml Vial, 23 UNIT SQ HS, (Reported) Insulin Lispro 100 Unit/1 Ml Vial, SC PC, (Reported) BELOW 100 = O UNITS 100-130 = 2 UNITS 131-160 = 3 UNITS 161-190 = 4 UNITS 191 AND ABOVE = 5 UNITS L.acidoph & Paracasei,B.lactis 1 Each Capsule, 1 CAP PO DAILY, (Reported) Melatonin 10 Mg Tablet.er, 10 MG PO HS, (Reported) Mesalamine 0.375 Gm Cap.er.24h, 2 CAP PO DAILY, (Reported) LAST DOSE TO BE TAKEN 02-05-17 Mirabegron 50 Mg Tab.er.24h, 50 MG PO DAILY, (Reported) Nitrofurantoin Monohyd/M-Cryst 100 Mg Capsule, 1 TAB PO BID Prescribed by: LOYDA MCKEON on 03/02/17 1059 Pioglitazone HCl 15 Mg Tablet, 15 MG PO DAILY, (Reported) Tramadol HCl 50 Mg Tablet, 50 MG PO Q6H PRN for PAIN-MODERATE, (Reported) Venlafaxine HCl 150 Mg Cap.er.24h, 150 MG PO HS, (Reported) Patient Home Medication List Home Medication List Reviewed: Yes Review of Systems Constitutional: no symptoms reported, see HPI Musculoskeletal: see HPI, joint pain (left hip), muscle pain (left lower extremity) All Other Systems Reviewed Negative Unless Noted: Yes Past Rthwvrt-Xbyjfd-Ircvsd Hx Past Med/Social Hx: Reviewed Nursing Past Med/Soc Hx Patient Social History Alcohol Use: Denies Use Recreational Drug Use: No Smoking Status: Current Everyday Smoker Type Used: Cigarettes (half a pack a day) 2nd Hand Smoke Exposure: No Recent Foreign Travel: No Contact w/Someone Who Travel: No Recent Infectious Disease Expo: No Recent Hopitalizations: No Immunizations Up To Date Tetanus Booster (TDap): Unknown PED Vaccines UTD: No Date of Pneumonia Vaccine: Jan 08, 2014 Date of Influenza Vaccine: Feb 08, 2016 Seasonal Allergies Seasonal Allergies: No Past Medical History Surgeries: Yes (CAROTID, STENTS, KYPHOPLASTY, L HIP, R ANKLE) Appendectomy, Coronary Stent, Eye Surgery, 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, Joint Replacement ( Right MAXIMINO), Orthopedic Respiratory: No Cardiac: Yes (STENTS 2001) Coronary Artery Disease, Heart Attack, High Cholesterol Neurological: Yes Dementia, TIA 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 Disorders: No Female 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 Disorders: 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 Sexually Transmitted Disease: No HIV/AIDS: No Gastrointestinal: Yes Colitis, Gastroesophageal Reflux, Chronic Diarrhea Musculoskeletal: Yes (COMPR FX L1) Osteoporosis, Arthritis, Chronic Back Pain Endocrine: Yes Diabetes, Insulin dep Loss of Vision: Bilateral Hearing Impairment: Denies Cancer: No Psychosocial: Yes Anxiety Integumentary: No Recent Skin Changes Blood Disorders: No Adverse Reaction/Blood Tranf: No (N/A) Family Medical History Alzheimer's disease (dad) Arthritis (mom) Asthma (sister) Completed stroke (mom) Diabetes mellitus (mom) Fibrocystic disease of breast (sister) Hypercholesterolemia (mom) Hypertension (mom) Myocardial infarction (mom) Neoplasm Parkinson's disease Severe allergy (sister) No Family History of: AIDS Abdominal aortic aneurysm [place]'s disease Alcoholism Aphasia Cancer of mouth Cardiovascular disease Cataracts Colon cancer Congenital disease Congenital heart disease Coronary thrombosis Cystic fibrosis Deafness or hearing loss Dementia Drug abuse Dysphasia Gastroenteritis Glaucoma Headache disorder Infertility Kidney disease Not obtainable due to adoption Osteoporosis (breast cancer) Prostate cancer Psychosocial problem Respiratory disorder Seizure disorder Thyroid disease Visual disorder No Pertinent Family Hx Physical Exam Vital Signs Vital Signs - First Documented 07/03/18 14:10 Pulse 93 Resp 22 B/P (MAP) 147/83 (104) Pulse Ox 97 O2 Delivery Room Air Capillary Refill : Less Than 3 Seconds Height, Weight, BMI Height: 5'7.00" Weight: 130lbs. 0.0oz. [id number]; 19.2 BMI Method:Stated General Appearance: WD/WN, no apparent distress Cardiovascular: normal peripheral pulses, regular rate, rhythm, no edema Respiratory: chest non-tender, lungs clear, normal breath sounds, no respiratory distress Gastrointestinal: normal bowel sounds, non tender, soft Hips: right hip normal range of motion, right hip no evidence of injury; left hip bone tenderness, left hip deformity, left hip limited range of motion, left hip pain, left hip soft tissue tenderness Legs: bilateral leg non-tender, bilateral leg normal inspection Knees: bilateral knee non-tender, bilateral knee normal inspection, bilateral knee no evidence of injury Feet: bilateral foot non-tender, bilateral foot normal inspection; left foot other (Healed wound to left plantar surface) Neurologic/Tendon: normal sensation, normal motor functions, normal tendon functions Neurologic/Psychiatric: no motor/sensory deficits, alert, normal mood/affect Skin: normal color, warm/dry Lymphatic: no adenopathy Progress/Results/Core Measures Results/Orders Lab Results Laboratory Tests Test 07/03/18 16:30 07/03/18 16:50 Range/Units White Blood Count 17.0 H 4.3-11.0 10^3/uL Red Blood Count 6.49 H 4.35-5.85 10^6/uL Hemoglobin 11.8 11.5-16.0 G/DL Hematocrit 38 35-52 % Mean Corpuscular Volume 59 L 80-99 FL Mean Corpuscular Hemoglobin 18 L 25-34 PG Mean Corpuscular Hemoglobin Concent 31 L 32-36 G/DL Red Cell Distribution Width 25.4 H 10.0-14.5 % Platelet Count 485 H 130-400 10^3/uL Mean Platelet Volume 10.0 7.4-10.4 FL Neutrophils (%) (Auto) 82 H 42-75 % Lymphocytes (%) (Auto) 8 L 12-44 % Monocytes (%) (Auto) 9 0-12 % Eosinophils (%) (Auto) 1 0-10 % Basophils (%) (Auto) 1 0-10 % Neutrophils # (Auto) 14.0 H 1.8-7.8 X 10^3 Lymphocytes # (Auto) 1.3 1.0-4.0 X 10^3 Monocytes # (Auto) 1.5 H 0.0-1.0 X 10^3 Eosinophils # (Auto) 0.1 0.0-0.3 10^3/uL Basophils # (Auto) 0.1 0.0-0.1 10^3/uL Neutrophils % (Manual) 89 % Lymphocytes % (Manual) 5 % Monocytes % (Manual) 5 % Eosinophils % (Manual) 0 % Basophils % (Manual) 1 % Band Neutrophils 0 % Polychromasia SLIGHT Hypochromasia MARKED Anisocytosis MARKED Microcytosis MARKED Spherocytes SLIGHT Target Cells SLIGHT Prothrombin Time 12.9 12.2-14.7 SEC INR Comment 1.0 0.8-1.4 Activated Partial Thromboplast Time 29 24-35 SEC Sodium Level 135 135-145 MMOL/L Potassium Level 4.3 3.6-5.0 MMOL/L Chloride Level 102 98-107 MMOL/L Carbon Dioxide Level 22 21-32 MMOL/L Anion Gap 11 5-14 MMOL/L Blood Urea Nitrogen 14 7-18 MG/DL Creatinine 0.72 0.60-1.30 MG/DL Estimat Glomerular Filtration Rate > 60 BUN/Creatinine Ratio 19 Glucose Level 171 H 70-105 MG/DL Calcium Level 9.6 8.5-10.1 MG/DL Corrected Calcium 9.4 8.5-10.1 MG/DL Total Bilirubin 0.6 0.1-1.0 MG/DL Aspartate Amino Transf (AST/SGOT) 20 5-34 U/L Alanine Aminotransferase (ALT/SGPT) 17 0-55 U/L Alkaline Phosphatase 95 40-136 U/L Total Protein 7.4 6.4-8.2 GM/DL Albumin 4.3 3.2-4.5 GM/DL Urine Color YELLOW Urine Clarity SLIGHTLY CLOUDY Urine pH 6.5 5-9 Urine Specific [place] 1.010 L 1.016-1.022 Urine Protein 1+ H NEGATIVE Urine Glucose (UA) 4+ H NEGATIVE Urine Ketones NEGATIVE NEGATIVE Urine Nitrite NEGATIVE NEGATIVE Urine Bilirubin NEGATIVE NEGATIVE Urine Urobilinogen NORMAL NORMAL MG/DL Urine Leukocyte Esterase 3+ H NEGATIVE Urine RBC (Auto) 2+ H NEGATIVE Urine RBC 2-5 H /HPF Urine WBC 10-25 H /HPF Urine Squamous Epithelial Cells 5-10 /HPF Urine Crystals NONE /LPF Urine Bacteria NEGATIVE /HPF Urine Casts NONE /LPF Urine Mucus NEGATIVE /LPF Urine Culture Indicated YES My Orders Orders - CONNOR MODI EYELETTER Pelvis With Left Hip 2-3 Views (07/03/18 14:48) Hydrocodone/Apap 5/325 Tablet (Lortab 5 (07/03/18 14:48) Cbc With Automated Diff (07/03/18 16:23) Comprehensive Metabolic Panel (07/03/18 16:23) Protime With Inr (07/03/18 16:23) Partial Thromboplastin Time (07/03/18 16:23) Ua Culture If Indicated (07/03/18 16:23) Mrsa Screen (Icu,Preop,Cath) (07/03/18 16:23) Chest 1 View, Ap/Pa Only (07/03/18 16:23) Ekg Tracing (07/03/18 16:31) Red Cells Leukocytes Reduced (07/03/18 16:31) Type And Screen (07/03/18 16:31) Saline Lock/Iv-Start (07/03/18 16:42) Ns Iv 1000 Ml (Sodium Chloride 0.9%) (07/03/18 16:42) Manual Differential (07/03/18 16:30) Vital Signs/I&O 07/03/18 14:10 Pulse 93 Resp 22 B/P (MAP) 147/83 (104) Pulse Ox 97 O2 Delivery Room Air Blood Pressure Mean: 104 Progress Progress Note : Time: 14:30 Progress Note Patient seen and evaluated, will obtain x-ray of the pelvis and left hip. Hydrocodone/APAP 5/325 mg for pain. Patient had stress test on 03/22/2018, reviewed report per Dr. Saha. Conclusion showed basilar inferior infarction with small amount of. Infarct ischemia and basal inferior hypo-kinesis. Ejection fraction 48% 1520 x-rays of the pelvis and left hip show an impacted subcapital hip fracture. Patient and daughter given results. Patient does report her pain is tolerable. [address] Velásquez per phone, reviewed x-ray findings and assessment. Would like to proceed with surgery at [address] Urias for medical management [address] Urias per phone, agreed to accept patient for admission. With like patient reviewed by Dr. Mendes, prior to clearance, does not need to see patient but review by phone and additional orders. 1645 spoke with the patient and her daughter, she is a full code at this time. Her daughter is the power of senior trial attorney, she will talk with her brothers and discussed that they wish to change this. [address] Mendes, ok to proceed with surgery for tonight, no need for further cardio work up. Order written for eval by Dr. Saha tomorrow morning. 1730 patient remains pain free at this time, she has no further questions about the plan for tonight. Neurovascular status intact left lower chin asymmetric with the right. Patient transferred to fourth floor. Initial ECG Impression Date: Jul 03, 2018 Initial ECG Impression Time: 16:33 Initial ECG Rate: 87 Initial ECG Rhythm: Normal Sinus Initial ECG Intervals: Normal Initial ECG Intervals OK 172, QRSD 104, QT 392. QTc 472. [place] P 73, QRS 39, T [address] Mcdowell, agreed with interpretation. Initial ECG Impression: Normal Initial ECG Comparisson: Unchanged Diagnostic Imaging Diagonstic Imaging: Xray Plain Films/CT/US/NM/MRI: pelvis, hip Comments NAME: EDEL HERRERA [facility] REC#: [id number] PT STATUS: REG ER : 1940 PHYSICIAN: CONNOR MODI ADMIT DATE: 07/03/18/ER Signed Date of Exam: 07/03/18 PELVIS WITH LEFT HIP 2-3 VIEWS INDICATION: Hip injury, fracture. COMPARISON: None. EXAMINATION: Single view pelvis and three views of the left hip were obtained. FINDINGS: Angulated slightly displaced subcapital hip fracture. There has been prior arthroplasty on the right. The bony pelvis is intact. IMPRESSION: Subcapital fracture of the left hip. Dictated by: Dictated on workstation # [id number] Dict: 07/03/18 153 Trans: 07/03/18 153 Interpreted by: PRECIOUS MAHER Electronically signed by: PRECIOUS MAHER 07/03/181536 Diagonstic Imaging: Xray Plain Films/CT/US/NM/MRI: chest Comments NAME: EDEL HERRERA [facility] REC#: [id number] PT STATUS: REG ER : 1940 PHYSICIAN: CONNOR MODI ADMIT DATE: 07/03/18/ER Draft Date of Exam:07/03/18 CHEST 1 VIEW, AP/PA ONLY INDICATION: Chest pain. EXAMINATION: Portable erect AP chest at 4:42 p.m. FINDINGS: The heart size is within normal limits and stable when compared to 02/03/2017. The lungs are clear. There is no evidence for failure, pneumonia or for a pleural effusion. There is a skin fold coursing obliquely along the periphery of the right lower lobe. There is no sign of a pneumothorax. The mediastinum is not widened. The aortic arch is somewhat prominent but no different than on the prior exam. The osseous structures are intact. There is now a wire mesh vascular graft overlying the right neck. IMPRESSION: There is no evidence for active disease. Dictated on workstation # [id number] Dict: 07/03/18 1706 Trans: 07/03/18 1712 [facility] [id number] Interpreted by: HUT [facility] Impression Primary Impression: Subcapital fracture of left hip Qualified Codes: S72.012A - Unspecified intracapsular fracture of left femur, initial encounter for closed fracture Additional Impressions: CAD (coronary artery disease) Qualified Codes: I25.10 - Atherosclerotic heart disease of [place] coronary artery without angina pectoris Dementia Qualified Codes: F03.90 - Unspecified dementia without behavioral disturbance Type 2 diabetes mellitus Qualified Codes: E11.9 - Type 2 diabetes mellitus without complications Disposition: 01 HOME, SELF-CARE Condition: Improved Admissions Decision to Admit Reason: Admit from ER (General) Decision to Admit/Date: Jul 03, 2018 Time/Decision to Admit Time: 16:30 Departure-Patient Inst. Referrals: JSOEY RIDER DO (PCP/Family) Primary Care Physician Copy Copies To 1: JOSEY RIDER DO Copies To 2: JOAQUÍN SAHA MD FACP FAC CCDS CONNOR MODI Jul 03, 2018 16:00
[2018-07-03 16:40] LABS: BASOPHILS # (AUTO) 0.1 10^3/uL (0.0-0.1); BASOPHILS % (AUTO) 1 % (0-10); EOSINOPHILS # (AUTO) 0.1 10^3/uL (0.0-0.3); EOSINOPHILS % (AUTO) 1 % (0-10); HEMATOCRIT 38 % (35-52); HEMOGLOBIN 11.8 G/DL (11.5-16.0); LYMPHOCYTES # (AUTO) 1.3 X 10^3 (1.0-4.0); LYMPHOCYTES % (AUTO) 8 % (12-44); MEAN CORPUSCULAR HEMOGLOBIN 18 PG (25-34); MEAN CORPUSCULAR HGB CONC 31 G/DL (32-36); MEAN CORPUSCULAR VOLUME 59 FL (80-99); MONOCYTES # (AUTO) 1.5 X 10^3 (0.0-1.0); MONOCYTES % (AUTO) 9 % (0-12); NEUTROPHILS % (AUTO) 82 % (42-75); PLATELET COUNT 485 10^3/uL (130-400); RED CELL DISTRIBUTION WIDTH 25.4 % (10.0-14.5)
[2018-07-03] MEDS ORDERED: NS IV 1000 ML 1,000 ML IV SCH (16:42)
[2018-07-03 16:51] LABS: PROTHROMBIN TIME PATIENT 12.9 SEC (12.2-14.7)
[2018-07-03 16:55] LABS: BILIRUBIN,URINE NEGATIVE (NEGATIVE); CLARITY,URINE SLIGHTLY CLOUDY; COLOR,URINE YELLOW; GLUCOSE, URINE (UA) 4+ (NEGATIVE); KETONES,URINE NEGATIVE (NEGATIVE); LEUKOCYTE ESTERASE ,URINE 3+ (NEGATIVE); NITRITE,URINE NEGATIVE (NEGATIVE); PH,URINE 6.5 (5-9); PROTEIN,URINE 1+ (NEGATIVE); UROBILINOGEN,URINE NORMAL (NORMAL)
[2018-07-03 17:00] LABS: ALANINE AMINOTRANSFERASE 17 U/L (0-55); ALBUMIN 4.3 GM/DL (3.2-4.5); ALKALINE PHOSPHATASE 95 U/L (40-136); BILIRUBIN,TOTAL 0.6 MG/DL (0.1-1.0); BUN/CREATININE RATIO 19; CALCIUM 9.6 MG/DL (8.5-10.1); CARBON DIOXIDE 22 MMOL/L (21-32); CHLORIDE 102 MMOL/L (98-107); CREATININE SERUM 0.72 MG/DL (0.60-1.30); GFR ESTIMATED > 60; GLUCOSE 171 MG/DL (70-105); POTASSIUM 4.3 MMOL/L (3.6-5.0); SODIUM 135 MMOL/L (135-145); TOTAL PROTEIN 7.4 GM/DL (6.4-8.2)
[2018-07-03 17:04] LABS: ANISOCYTOSIS MARKED; BAND NEUTROPHILS 0 %; BASOPHILS % (MANUAL) 1 %; EOSINOPHILS % (MANUAL) 0 %; HYPOCHROMASIA MARKED; LYMPHOCYTES % (MANUAL) 5 %; MONOCYTES % (MANUAL) 5 %; NEUTROPHILS % (MANUAL) 89 %; POLYCHROMASIA SLIGHT
[2018-07-03 17:05] LABS: MICROCYTOSIS MARKED; SPHEROCYTES SLIGHT; TARGET CELLS SLIGHT
[2018-07-03 17:06] LABS: BACTERIA,URINE NEGATIVE /HPF
--- NOTE | 2018-07-03 17:13 | Diagnostic Imaging Report ---
INDICATION: Chest pain. EXAMINATION: Portable erect AP chest at 4:42 p.m. FINDINGS: The heart size is within normal limits and stable when compared to 02/03/2017. The lungs are clear. There is no evidence for failure, pneumonia or for a pleural effusion. There is a skin fold coursing obliquely along the periphery of the right lower lobe. There is no sign of a pneumothorax. The mediastinum is not widened. The aortic arch is somewhat prominent but no different than on the prior exam. The osseous structures are intact. There is now a wire mesh vascular graft overlying the right neck. IMPRESSION: There is no evidence for active disease. Dictated by: Dictated on workstation # [id number]
--- OUTSIDE RECORDS SUMMARY | 2018-07-03 17:23 | XMS REPORT | Continuity of Care Document ---
Author Author [facility] Organization [facility] Address Unknown Phone Unavailable Allergies Active Description Code Type Severity Reaction Onset Reported/Identified Relationship to Patient Clinical Status Yes No Known Drug Allergies [id number] Drug Allergy Unknown N/A 01/29/2017 Medications There [...] INFARCT 11/18/2011 Ot 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 [place] CORON 11/18/2011 Ot 433.10 CAROTID ARTERY OCCLUSION [...] NOS 11/24/2011 Ot 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 [place] CORON 11/24/2011 Ot 433.10 CAROTID ARTERY OCCLUSION [...] RIDER DO Ot 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 [place] CORON 08/03/2014 JOSEY RIDER DO Ot 443.9 [...] 793.82 08/06/2014 Ot V76.12 08/06/2014 NEY ASTUDILLO CIRCULAR KN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 Ot 719.07 08/06/2014 NEY ASTUDILLO CIRCULAR KN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 Ot 719.47 08/06/2014 JOSEY RIDER DO Ot [...] RIDER DO Ot 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 [place] CORON 09/25/2014 JOSEY RIDER DO Ot 530.81 [...] KYMBERLY DPM, DAVID Q Ot Z79.899 OTHER CORRECTION (CURRENT) DRUG THERAPY 02/20/2015 ABRAN MARCUM FACC, [...] INCONCLUSIVE FINDINGS ON DX 09/11/2015 RIDER DO, JSOEY Parikh Ot R92.8 OTH ABN AND INCONCLUSIVE FINDINGS ON DX 12/03/2015 RD SULLIVAN MD Ot F17.210 NICOTINE DEPENDENCE, CIGARETTES, UNCOMPL 12/03/2015 RD SULLIVAN MD Ot I10 ESSENTIAL (PRIMARY) HYPERTENSION 12/03/2015 RD SULLIVAN MD Ot I25.10 ATHSCL HEART DISEASE OF [place] CORONARY 12/03/2015 RD SULLIVAN MD Ot R07.9 CHEST PAIN, UNSPECIFIED 12/03/2015 RD SULLIVAN MD Ot Z95.5 PRESENCE OF CORONARY ANGIOPLASTY IMPLANT 12/04/2015 RD SULLIVAN MD Ot F17.210 NICOTINE DEPENDENCE, CIGARETTES, UNCOMPL 12/04/2015 RD SULLIVAN MD Ot I10 ESSENTIAL (PRIMARY) HYPERTENSION 12/04/2015 RD SULLIVAN MD Ot I25.10 ATHSCL HEART DISEASE OF [place] CORONARY 12/04/2015 RD SULLIVAN MD Ot R07.9 CHEST PAIN, UNSPECIFIED 12/04/2015 RD SULLIVAN MD T Ot Z95.5 PRESENCE OF CORONARY ANGIOPLASTY IMPLANT 12/05/2015 RD SULLIVAN MD Ot F17.210 NICOTINE DEPENDENCE, CIGARETTES, UNCOMPL 12/05/2015 RD SULLIVAN MD T Ot I10 ESSENTIAL (PRIMARY) HYPERTENSION 12/05/2015 RD SULLIVAN MD T Ot I25.10 ATHSCL HEART DISEASE OF [place] CORONARY 12/05/2015 RD SULLIVAN MD Ot R07.9 CHEST PAIN, UNSPECIFIED 12/05/2015 RD SULLIVAN MD Ot Z95.5 PRESENCE OF CORONARY ANGIOPLASTY IMPLANT 12/09/2015 RD SULLIVAN MD Ot F17.210 NICOTINE DEPENDENCE, CIGARETTES, UNCOMPL 12/09/2015 RD SULLIVAN MD Ot I10 ESSENTIAL (PRIMARY) HYPERTENSION 12/09/2015 RD SULLIVAN MD Ot I25.10 ATHSCL HEART DISEASE OF [place] CORONARY 12/09/2015 RD SULLIVAN MD Ot R07.9 CHEST PAIN, UNSPECIFIED 12/09/2015 RD SULLIVAN MD Ot Z95.5 PRESENCE OF CORONARY ANGIOPLASTY IMPLANT 12/26/2015 ANAYELI DICKENS FAMILY SOCIOLOGIST Ot Z53.9 PROCEDURE AND TREATMENT NOT CARRIED OUT, 12/26/2015 ANAYELI DICKENS FAMILY SOCIOLOGIST Ot E78.4 OTHER HYPERLIPIDEMIA 12/26/2015 NICKMAANAYELI L FAMILY SOCIOLOGIST Ot I65.23 OCCLUSION AND STENOSIS OF BILATERAL NG 01/17/2016 ANAYELI DICKENS L FAMILY SOCIOLOGIST Ot E78.4 OTHER HYPERLIPIDEMIA 01/17/2016 BAIMA ANAYELI L FAMILY SOCIOLOGIST Ot I65.23 OCCLUSION AND STENOSIS OF BILATERAL NG 01/24/2016 BAIMA, ANAYELI L FAMILY SOCIOLOGIST Ot I65.23 OCCLUSION AND STENOSIS OF BILATERAL NG 01/27/2016 JOSEY RIDER DO Ot R92.8 OTH ABN AND INCONCLUSIVE FINDINGS ON DX 01/27/2016 JOSEY RIDER DO Ot R92.8 OTH ABN AND INCONCLUSIVE FINDINGS ON DX 01/30/2016 ANAYELI DICKENS FAMILY SOCIOLOGIST Ot E78.4 OTHER HYPERLIPIDEMIA 01/30/2016 BAIMA ANAYELI L FAMILY SOCIOLOGIST Ot I65.23 OCCLUSION AND STENOSIS OF BILATERAL NG 02/04/2016 BAIMA ANAYELI L FAMILY SOCIOLOGIST Ot I65.23 OCCLUSION AND STENOSIS OF BILATERAL [...] NOS 02/14/2016 Ot 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 [place] CORON 02/14/2016 Ot 433.10 CAROTID ARTERY OCCLUSION [...] NEOPLASM OF [place] 02/14/2016 RIDINGS, NEY C CIRCULAR KN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 Ot 719.07 JOINT EFFUSION-ANKLE 02/14/2016 RIDINGS, NEY C CIRCULAR KN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 Ot 719.47 JOINT PAIN-ANKLE 02/14/2016 JOSEY RIDER [...] INCONCLUSIVE FINDINGS ON DX 02/14/2016 ANAYELI DICKENS FAMILY SOCIOLOGIST Ot I65.23 OCCLUSION AND STENOSIS OF BILATERAL NG 02/14/2016 ANAYELI DICKENS FAMILY SOCIOLOGIST Ot Z53.9 PROCEDURE AND TREATMENT NOT CARRIED OUT, 02/14/2016 ANAYELI DICKENS FAMILY SOCIOLOGIST Ot E78.4 OTHER HYPERLIPIDEMIA 02/14/2016 ANAYELI DICKENS FAMILY SOCIOLOGIST Ot I65.23 OCCLUSION AND STENOSIS OF BILATERAL NG 02/14/2016 JOSEY RIDER DO Ot R92.8 OTH ABN AND INCONCLUSIVE FINDINGS ON DX 02/18/2016 ANAYELI DICKENS FAMILY SOCIOLOGIST Ot E78.4 OTHER HYPERLIPIDEMIA 02/18/2016 ANAYELI DICKENS L FAMILY SOCIOLOGIST Ot I25.10 ATHSCL HEART DISEASE OF [place] CORONARY 03/06/2016 ANAYELI DICKENS FAMILY SOCIOLOGIST Ot E78.4 OTHER HYPERLIPIDEMIA 03/06/2016 ANAYELI DICKENS FAMILY SOCIOLOGIST Ot I25.10 ATHSCL HEART DISEASE OF [place] CORONARY 03/18/2016 ANAYELI DICKENS Hilton FAMILY SOCIOLOGIST Ot E78.4 OTHER HYPERLIPIDEMIA 03/18/2016 NICKANAYELI HURTADO Hilton FAMILY SOCIOLOGIST Ot I25.10 ATHSCL HEART DISEASE OF [place] CORONARY 04/10/2016 RIDERJOSEY DODSON DO J Ot [...] DONIS Ot I25.10 ATHSCL HEART DISEASE OF [place] CORONARY 08/03/2016 KAYLIN DONIS Ot S01.511A LACERATION WITHOUT FOREIGN BODY OF LIP, 08/03/2016 KAYLIN DONIS Ot S60.512A ABRASION OF LEFT HAND, INITIAL ENCOUNTER 08/03/2016 KAYLIN DONIS Ot W19.XXXA UNSPECIFIED FALL, INITIAL ENCOUNTER 08/03/2016 KAYLIN DONIS Ot Y99.8 OTHER EXTERNAL CAUSE STATUS 08/03/2016 KAYLIN DONIS Ot Z23 ENCOUNTER FOR IMMUNIZATION 08/03/2016 KAYLIN DONIS Ot Z79.4 CORRECTION (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 08/03/2016 KAYLIN DONIS Ot Z79.82 CORRECTION (CURRENT) USE OF ASPIRIN 08/03/2016 KAYLIN DONIS Ot Z79.899 OTHER COMMERCIAL DRIVER (CURRENT) DRUG THERAPY 08/03/2016 KAYLIN DONIS Ot Z95.5 PRESENCE OF CORONARY ANGIOPLASTY IMPLANT 08/03/2016 KAYLIN DONIS Ot Z96.641 PRESENCE OF RIGHT ARTIFICIAL HIP JOINT 08/11/2016 JOSEY RIDER DO Ot R92.8 OTH ABN AND INCONCLUSIVE FINDINGS ON DX 08/19/2016 JOSEY RIDER DO Ot R92.8 OTH ABN AND INCONCLUSIVE FINDINGS ON DX 08/25/2016 ANAYELI DICKENS FAMILY SOCIOLOGIST Ot E78.4 OTHER HYPERLIPIDEMIA 08/25/2016 ANAYELI DICKENS FAMILY SOCIOLOGIST Ot I10 ESSENTIAL (PRIMARY) HYPERTENSION 08/25/2016 BAIGENESIS ANAYELI L FAMILY SOCIOLOGIST Ot I25.10 ATHSCL HEART DISEASE OF [place] CORONARY 09/15/2016 JOSEY RIDER DO Ot R19.7 DIARRHEA, UNSPECIFIED 09/22/2016 BAIMA ANAYELI L FAMILY SOCIOLOGIST Ot E78.4 OTHER HYPERLIPIDEMIA 09/22/2016 BAIMA, ANAYELI L FAMILY SOCIOLOGIST Ot I10 ESSENTIAL (PRIMARY) HYPERTENSION 09/22/2016 BAIMAANNEANAYELI L FAMILY SOCIOLOGIST Ot I25.10 ATHSCL HEART DISEASE OF [place] CORONARY 09/28/2016 BAIMAANNEANAYELI L FAMILY SOCIOLOGIST Ot E78.4 OTHER HYPERLIPIDEMIA 09/28/2016 BAIMA, ANAYELI L FAMILY SOCIOLOGIST Ot I10 ESSENTIAL (PRIMARY) HYPERTENSION 09/28/2016 ANNE DICKENSHER L FAMILY SOCIOLOGIST Ot I25.10 ATHSCL HEART DISEASE OF [place] CORONARY 10/13/2016 KAYLIN DONIS Ot E11.9 TYPE 2 DIABETES MELLITUS WITHOUT COMPLIC 10/13/2016 KAYLIN DONIS Ot F17.210 NICOTINE DEPENDENCE, CIGARETTES, UNCOMPL 10/13/2016 KAYLIN DONIS Ot I25.10 ATHSCL HEART DISEASE OF [place] CORONARY 10/13/2016 KAYLIN DONIS Ot S01.511A LACERATION WITHOUT FOREIGN BODY OF LIP, 10/13/2016 KAYLIN DONIS Ot S60.512A ABRASION OF LEFT HAND, INITIAL ENCOUNTER 10/13/2016 KAYLIN DONIS Ot W19.XXXA UNSPECIFIED FALL, INITIAL ENCOUNTER 10/13/2016 KAYLIN DONIS Ot Y99.8 OTHER EXTERNAL CAUSE STATUS 10/13/2016 KAYLIN DONIS Ot Z23 ENCOUNTER FOR IMMUNIZATION 10/13/2016 KAYLIN DONIS Ot 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 DRIVER (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 10/13/2016 KAYLIN DONIS Ot Z79.82 COMMERCIAL DRIVER (CURRENT) USE OF ASPIRIN 10/13/2016 KAYLIN DONIS Ot Z79.899 OTHER CORRECTION (CURRENT) DRUG THERAPY 10/13/2016 KAYLIN DNOIS Ot Z95.5 PRESENCE OF CORONARY ANGIOPLASTY IMPLANT 10/13/2016 KAYLIN DONIS Ot Z96.641 PRESENCE OF RIGHT ARTIFICIAL HIP JOINT 10/30/2016 KAYLIN DONIS Ot E11.9 TYPE 2 DIABETES MELLITUS WITHOUT COMPLIC 10/30/2016 KAYLIN DONIS Ot F17.210 NICOTINE DEPENDENCE, CIGARETTES, UNCOMPL 10/30/2016 KAYLIN DONIS Ot I25.10 ATHSCL HEART DISEASE OF [place] CORONARY 10/30/2016 KAYLIN DONIS Ot S01.511A LACERATION WITHOUT FOREIGN BODY OF LIP, 10/30/2016 KAYLIN DONIS Ot S60.512A ABRASION OF LEFT HAND, INITIAL ENCOUNTER 10/30/2016 KAYLIN DONIS Ot W19.XXXA UNSPECIFIED FALL, INITIAL ENCOUNTER 10/30/2016 KAYLIN DONIS Ot Y99.8 OTHER EXTERNAL CAUSE STATUS 10/30/2016 KAYLIN DONIS Ot Z23 ENCOUNTER FOR IMMUNIZATION 10/30/2016 KAYLIN DONIS Ot Z79.4 CORRECTION (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 10/30/2016 KAYLIN DONIS Ot Z79.82 COMMERCIAL DRIVER (CURRENT) USE OF ASPIRIN 10/30/2016 KAYLIN DONIS Ot Z79.899 OTHER COMMERCIAL DRIVER (CURRENT) DRUG THERAPY 10/30/2016 KAYLIN DONIS L Ot Z95.5 PRESENCE OF CORONARY ANGIOPLASTY IMPLANT 10/30/2016 KAYLIN DONIS L Ot Z96.641 PRESENCE OF RIGHT ARTIFICIAL HIP JOINT 01/14/2017 CONNOR MODI Ot E11.9 TYPE 2 DIABETES MELLITUS WITHOUT COMPLIC 01/14/2017 CONNOR MODIP Ot E78.00 PURE HYPERCHOLESTEROLEMIA, UNSPECIFIED 01/14/2017 CONNOR MODI Ot F41.9 ANXIETY DISORDER, UNSPECIFIED 01/14/2017 CONNOR MODIP Ot I25.10 ATHSCL HEART DISEASE OF [place] CORONARY 01/14/2017 CONNOR MODIP Ot I25.2 OLD MYOCARDIAL INFARCTION 01/14/2017 CONNOR MODIP Ot K21.9 GASTRO-ESOPHAGEAL REFLUX DISEASE WITHOUT 01/14/2017 CONNOR MODIP Ot M51.36 OTHER INTERVERTEBRAL DISC DEGENERATION, 01/14/2017 CONNOR MODIP Ot M54.5 LOW BACK PAIN 01/14/2017 CONNOR MODIP Ot S39.012A STRAIN OF MUSCLE, FASCIA AND TENDON OF L 01/14/2017 CONNOR MODIP Ot W01.0XXA FALL SAME LEV FROM SLIP/TRIP W/O STRIKE 01/14/2017 CONNOR MODIP Ot Y93.01 ACTIVITY, WALKING, MARCHING AND HIKING 01/14/2017 CONNOR MODIP Ot Z79.4 CORRECTION (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 01/14/2017 CONNOR MODIP Ot Z79.82 CORRECTION (CURRENT) USE OF ASPIRIN 01/14/2017 CONNOR MODIP Ot Z80.9 FAMILY HISTORY OF MALIGNANT NEOPLASM, UN 01/14/2017 CONNOR MODIP Ot Z86.73 PRSNL HX OF TIA (TIA), AND CEREB INFRC W 01/14/2017 CONNOR MODIP Ot Z87.19 PERSONAL HISTORY OF OTHER DISEASES OF TH 01/14/2017 CONNOR MODIP Ot Z90.710 ACQUIRED ABSENCE OF BOTH CERVIX AND UTER 01/14/2017 CONNOR MODIP Ot Z95.5 PRESENCE OF CORONARY ANGIOPLASTY IMPLANT 01/18/2017 CONNOR MODIP Ot E11.9 TYPE 2 DIABETES MELLITUS WITHOUT COMPLIC 01/18/2017 CONNOR MODIP Ot E78.00 PURE HYPERCHOLESTEROLEMIA, UNSPECIFIED 01/18/2017 LY, CONNOR HOWARDP Ot F41.9 ANXIETY DISORDER, UNSPECIFIED 01/18/2017 LY, CONNOR HOWARDP Ot I25.10 ATHSCL HEART DISEASE OF [place] CORONARY 01/18/2017 LY, CONNOR HOWARDP Ot I25.2 OLD MYOCARDIAL INFARCTION 01/18/2017 LY, CONNOR HOWARDP Ot K21.9 GASTRO-ESOPHAGEAL REFLUX DISEASE WITHOUT 01/18/2017 LYCONNOR Braswell FAMILY SOCIOLOGIST Ot M51.36 OTHER INTERVERTEBRAL DISC DEGENERATION, 01/18/2017 LY, CONNOR HOWARDP Ot M54.5 LOW BACK PAIN 01/18/2017 LY, CONNOR HOWARDP Ot S39.012A STRAIN OF MUSCLE, FASCIA AND TENDON OF L 01/18/2017 LYCONNOR Braswell FAMILY SOCIOLOGIST Ot W01.0XXA FALL SAME LEV FROM SLIP/TRIP W/O STRIKE 01/18/2017 LYCONNOR Braswell FAMILY SOCIOLOGIST Ot Y93.01 ACTIVITY, WALKING, MARCHING AND HIKING 01/18/2017 LYCONNOR Braswell FAMILY SOCIOLOGIST Ot 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 DRIVER (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 01/18/2017 LYCONNOR Braswell FAMILY SOCIOLOGIST Ot Z79.82 CORRECTION (CURRENT) USE OF ASPIRIN 01/18/2017 LYCONNOR Braswell FAMILY SOCIOLOGIST Ot Z80.9 FAMILY HISTORY OF MALIGNANT NEOPLASM, UN 01/18/2017 LYCONNOR Braswell FAMILY SOCIOLOGIST Ot Z86.73 PRSNL HX OF TIA (TIA), AND CEREB INFRC W 01/18/2017 LY, CONNOR HOWARDP Ot Z87.19 PERSONAL HISTORY OF OTHER DISEASES OF TH 01/18/2017 LYCONNOR Braswell FAMILY SOCIOLOGIST Ot Z90.710 ACQUIRED ABSENCE OF BOTH CERVIX AND UTER 01/18/2017 LY, CONNOR HOWARDP Ot Z95.5 PRESENCE OF CORONARY ANGIOPLASTY IMPLANT 01/26/2017 Ot 250.00 DIAB JEFFY WO COMPL, TYPE II OR UNSPEC TY 01/26/2017 Ot 272.4 HYPERLIPIDEMIA NEC/NOS 01/26/2017 Ot 305.1 TOBACCO USE DISORDER 01/26/2017 Ot 401.9 HYPERTENSION NOS 01/26/2017 Ot 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 [place] CORON 01/26/2017 Ot 433.10 CAROTID ARTERY OCCLUSION [...] NEOPLASM OF [place] 01/26/2017 RIDINGS, NEY C CIRCULAR KN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 Ot 719.07 JOINT EFFUSION-ANKLE 01/26/2017 RIDINGS, NEY C CIRCULAR KN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 Ot 719.47 JOINT PAIN-ANKLE 01/26/2017 JOSEY RIDER [...] INCONCLUSIVE FINDINGS ON DX 01/26/2017 ANAYELI DICKENS FAMILY SOCIOLOGIST Ot I65.23 OCCLUSION AND STENOSIS OF BILATERAL NG 01/26/2017 ANAYELI DICKENS FAMILY SOCIOLOGIST Ot Z53.9 PROCEDURE AND TREATMENT NOT CARRIED OUT, 01/26/2017 ANAYELI DICKENS FAMILY SOCIOLOGIST Ot E78.4 OTHER HYPERLIPIDEMIA 01/26/2017 ANAYELI DICKENS FAMILY SOCIOLOGIST Ot I65.23 OCCLUSION AND STENOSIS OF BILATERAL NG 01/26/2017 JOSEY RIDER DO Ot R92.8 OTH ABN AND INCONCLUSIVE FINDINGS ON DX 01/26/2017 ANAYELI DICKENS FAMILY SOCIOLOGIST Ot E78.4 OTHER HYPERLIPIDEMIA 01/26/2017 ANAYELI DICKENS FAMILY SOCIOLOGIST Ot I25.10 ATHSCL HEART DISEASE OF [place] CORONARY 01/26/2017 JOSEY RIDER DO Ot R15.9 FULL INCONTINENCE OF FECES 01/26/2017 JOSEY RIDER DO Ot R32 UNSPECIFIED URINARY INCONTINENCE 01/26/2017 JOSEY RIDER DO, Ot R92.8 OTH ABN AND INCONCLUSIVE FINDINGS ON DX 01/26/2017 ANAYELI DICKENS FAMILY SOCIOLOGIST Ot E78.4 OTHER HYPERLIPIDEMIA 01/26/2017 ANAYELI DICKENS FAMILY SOCIOLOGIST Ot I10 ESSENTIAL (PRIMARY) HYPERTENSION 01/26/2017 ANAYELI DICKENS FAMILY SOCIOLOGIST Ot I25.10 ATHSCL HEART DISEASE OF [place] CORONARY 01/29/2017 JOSEY RIDER DO Ot R19.7 [...] NOS 02/02/2017 Ot 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 [place] CORON 02/02/2017 Ot 433.10 CAROTID ARTERY OCCLUSION [...] MAMMO-MALIGN NEOPLASM OF [place] 02/02/2017 RIDINGSNEY C CIRCULAR KN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 Ot 719.07 JOINT EFFUSION-ANKLE 02/02/2017 RIDINGSNEY C CIRCULAR KN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 Ot 719.47 JOINT PAIN-ANKLE 02/02/2017 JOSEY RIDER [...] Ot E78.4 OTHER HYPERLIPIDEMIA 02/02/2017 ANAYELI DICKENS FAMILY SOCIOLOGIST Ot I65.23 OCCLUSION AND STENOSIS OF BILATERAL NG 02/02/2017 JOSEY RIDER DO Ot R92.8 OTH ABN AND INCONCLUSIVE FINDINGS ON DX 02/02/2017 CHRISSIE ANAYELIHER Hilton COHN Ot E78.4 OTHER HYPERLIPIDEMIA 02/02/2017 ANAYELI DICKENS Ot I25.10 ATHSCL HEART DISEASE OF [place] CORONARY 02/02/2017 JOSEY RIDER DO Ot R15.9 FULL INCONTINENCE OF FECES 02/02/2017 JOSEY RIDER DO Ot R32 UNSPECIFIED URINARY INCONTINENCE 02/02/2017 JOSEY RIDER DO Ot R92.8 OTH ABN AND INCONCLUSIVE FINDINGS ON DX 02/02/2017 ANAYELI DICKENS Ot E78.4 OTHER HYPERLIPIDEMIA 02/02/2017 ANAYELI DICKENS Ot I10 ESSENTIAL (PRIMARY) HYPERTENSION 02/02/2017 ANAYELI DICKENS Ot I25.10 ATHSCL HEART DISEASE OF [place] CORONARY 02/02/2017 JOSEY RIDER DO Ot 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, NEC, LUMBAR REGION, 02/02/2017 JOSEY RIDER DO Ot S32.010A WEDGE COMPRESSION FRACTURE OF FIRST LUMB 02/02/2017 JOSEY RIDER DO Ot W19.XXXA UNSPECIFIED FALL, INITIAL ENCOUNTER 02/02/2017 JOSEY RIDRE DO Ot Y99.8 OTHER EXTERNAL CAUSE STATUS [...] Z Ot I25.10 ATHSCL HEART DISEASE OF [place] CORONARY 02/02/2017 GALINA MARCUM PRAKASH Z Ot [...] 02/02/2017 KAMLESH MOJICA MDIQ Z Ot Z79.4 CORRECTION (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 02/02/2017 GALINA MARCUM PRAKASH Z Ot Z79.899 OTHER CORRECTION (CURRENT) DRUG THERAPY 02/02/2017 GALINA MARCUM PRAKASH Z Ot Z95.5 PRESENCE OF CORONARY ANGIOPLASTY IMPLANT 02/03/2017 JOSEY RIDER DO Ot S32.010A WEDGE COMPRESSION FRACTURE OF FIRST LUMB 02/03/2017 JOSEY RIDER DO Ot W19.XXXA UNSPECIFIED FALL, INITIAL ENCOUNTER 02/03/2017 JOSEY RIDER DO Ot Y99.8 OTHER EXTERNAL CAUSE STATUS 02/03/2017 ANAYELI DICKENS Ot E78.4 OTHER HYPERLIPIDEMIA 02/03/2017 ANAYELI DICKENS FAMILY SOCIOLOGIST Ot I10 ESSENTIAL (PRIMARY) HYPERTENSION 02/03/2017 ANAYELI DICKENS Ot I25.10 ATHSCL HEART DISEASE OF [place] CORONARY 02/03/2017 ANAYELI DICKENSP Ot I65.23 OCCLUSION AND STENOSIS OF BILATERAL NG 02/04/2017 GALINA MARCUM PRAKASH Z Ot E11.9 TYPE 2 DIABETES MELLITUS WITHOUT COMPLIC 02/04/2017 GALINA MARCUM PRAKASH Z Ot F03.90 UNSPECIFIED DEMENTIA WITHOUT BEHAVIORAL 02/04/2017 GALINA MARCUM PRAKASH Z Ot F17.210 NICOTINE DEPENDENCE, CIGARETTES, UNCOMPL 02/04/2017 GALINA MARCUM PRAKASH Z Ot F41.9 ANXIETY DISORDER, UNSPECIFIED 02/04/2017 GALINA MARCUM PRAKASH Z Ot I10 ESSENTIAL (PRIMARY) HYPERTENSION 02/04/2017 GALINA MARCUM PRAKASH Z Ot I25.10 ATHSCL HEART DISEASE OF [place] CORONARY 02/04/2017 GALINA MARCUM PRAKASH Z Ot K21.9 GASTRO-ESOPHAGEAL REFLUX DISEASE WITHOUT 02/04/2017 GALINA MARCUM PRAKASH Z Ot S32.010A WEDGE COMPRESSION FRACTURE OF FIRST LUMB 02/04/2017 GALINA MARCUM PRAKASH Z Ot X58.XXXA EXPOSURE TO OTHER SPECIFIED FACTORS, INI 02/04/2017 GALINA MARCUM PRAKASH Z Ot Y99.8 OTHER EXTERNAL CAUSE STATUS 02/04/2017 GALINA MARCUM PRAKASH Z Ot 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 DRIVER (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 02/04/2017 GALINA MARCUM PRAKASH Z Ot Z79.899 OTHER CORRECTION (CURRENT) DRUG THERAPY 02/04/2017 GALINA MARCUM PRAKASH Z Ot Z95.5 PRESENCE OF CORONARY ANGIOPLASTY IMPLANT 02/04/2017 CARMEN RAMIREZ DO Ot N39.0 URINARY TRACT INFECTION, SITE NOT SPECIF 02/05/2017 ANAYELI DICKENS FAMILY SOCIOLOGIST Ot E78.4 OTHER HYPERLIPIDEMIA 02/05/2017 ANAYELI DICKENS FAMILY SOCIOLOGIST Ot I10 ESSENTIAL (PRIMARY) HYPERTENSION 02/05/2017 ANAYELI DICKENS FAMILY SOCIOLOGIST Ot I25.10 ATHSCL HEART DISEASE OF [place] CORONARY 02/05/2017 ANAYELI DICKENS FAMILY SOCIOLOGIST Ot I65.23 OCCLUSION AND STENOSIS OF BILATERAL [...] DOI Ot I25.10 ATHSCL HEART DISEASE OF [place] CORONARY 02/05/2017 YANELY RAMIREZ DOI Ot I25.2 [...] ANTIMICROBIAL 02/05/2017 YANELY RAMIREZ DOI Ot 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 DRIVER (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 02/05/2017 YANELY RAMIREZ DOI Ot Z79.891 COMMERCIAL DRIVER (CURRENT) USE OF OPIATE ANALGE 02/05/2017 YANELY [...] F17.210 NICOTINE DEPENDENCE, CIGARETTES, UNCOMPL 02/11/2017 GALINA MARCUM PRAKASH Z Ot F41.9 ANXIETY DISORDER, UNSPECIFIED 02/11/2017 GALINA MARCUM PRAKASH Z Ot I10 ESSENTIAL (PRIMARY) HYPERTENSION 02/11/2017 GALINA MARCUM PRAKASH Z Ot I25.10 ATHSCL HEART DISEASE OF [place] CORONARY 02/11/2017 GALINA MARCUM PRAKASH Z Ot K21.9 GASTRO-ESOPHAGEAL REFLUX DISEASE WITHOUT 02/11/2017 GALINA MARCUM PRAKASH Z Ot S32.010A WEDGE COMPRESSION FRACTURE OF FIRST LUMB 02/11/2017 GALINA MARCUM PRAKASH Z Ot X58.XXXA EXPOSURE TO OTHER SPECIFIED FACTORS, INI 02/11/2017 GALINA MARCUM PRAKASH Z Ot Y99.8 OTHER EXTERNAL CAUSE STATUS 02/11/2017 GALINA MARCUM PRAKASH Z Ot Z79.4 CORRECTION (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 02/11/2017 GALINA MARCUM PRAKASH Z Ot Z79.899 OTHER COMMERCIAL DRIVER (CURRENT) DRUG THERAPY 02/11/2017 GALINA MARCUM PRAKASH Z Ot Z95.5 PRESENCE OF CORONARY ANGIOPLASTY IMPLANT 02/17/2017 JOSEY RIDER DO Ot N32.3 DIVERTICULUM OF BLADDER 02/17/2017 JOSEY RIDER DO Ot N32.89 OTHER SPECIFIED DISORDERS OF BLADDER 02/17/2017 GALINA MARUCM PRAKASH Z Ot E11.9 TYPE 2 DIABETES MELLITUS WITHOUT COMPLIC 02/17/2017 GALINA MARCUM PRAKASH Z Ot F03.90 UNSPECIFIED DEMENTIA WITHOUT BEHAVIORAL 02/17/2017 GALINA MARCUM PRAKASH Z Ot F17.210 NICOTINE DEPENDENCE, CIGARETTES, UNCOMPL 02/17/2017 GALINA MARCUM PRAKASH Z Ot F41.9 ANXIETY DISORDER, UNSPECIFIED 02/17/2017 GALINA MARCUM PRAKASH Z Ot I10 ESSENTIAL (PRIMARY) HYPERTENSION 02/17/2017 GALINA MARCUM PRAKASH Z Ot I25.10 ATHSCL HEART DISEASE OF [place] CORONARY 02/17/2017 GALINA MARCUM PRAKASH Z Ot K21.9 GASTRO-ESOPHAGEAL REFLUX DISEASE WITHOUT 02/17/2017 GALINA MARCUM PRAKASH Z Ot S32.010A WEDGE COMPRESSION FRACTURE OF FIRST LUMB 02/17/2017 GALINA MARCUM PRAKASH Z Ot X58.XXXA EXPOSURE TO OTHER SPECIFIED FACTORS, INI 02/17/2017 KAMLESH MOJICA MDIQ Z Ot Y99.8 OTHER EXTERNAL CAUSE STATUS 02/17/2017 GALINA MARCUM PRAKASH Z Ot 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 DRIVER (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 02/17/2017 GALINA MARCUM PRAKASH Z Ot Z79.899 OTHER CORRECTION (CURRENT) DRUG THERAPY 02/17/2017 GALINA MARCUM PRAKASH [...] Ot E78.4 OTHER HYPERLIPIDEMIA 02/23/2017 BAIMAANAYELI L FAMILY SOCIOLOGIST Ot I10 ESSENTIAL (PRIMARY) HYPERTENSION 02/23/2017 BAIMAANAYELI L FAMILY SOCIOLOGIST Ot I25.10 ATHSCL HEART DISEASE OF [place] CORONARY 02/23/2017 BAIMAANAYELI L FAMILY SOCIOLOGIST Ot I65.23 OCCLUSION AND STENOSIS OF BILATERAL NG 02/25/2017 BAIMAANAYELI L FAMILY SOCIOLOGIST Ot E78.4 OTHER HYPERLIPIDEMIA 02/25/2017 BAIMA ANAYELI L FAMILY SOCIOLOGIST Ot I10 ESSENTIAL (PRIMARY) HYPERTENSION 02/25/2017 BAIMA ANAYELI L FAMILY SOCIOLOGIST Ot I25.10 ATHSCL HEART DISEASE OF [place] CORONARY 02/25/2017 BAIMAANNEANAYELI L FAMILY SOCIOLOGIST Ot I34.0 NONRHEUMATIC MITRAL (VALVE) INSUFFICIENC 02/25/2017 BAIMAANNEANAYELI L FAMILY SOCIOLOGIST Ot I35.8 OTHER NONRHEUMATIC AORTIC VALVE DISORDER 02/25/2017 BAIMAANAYELI L FAMILY SOCIOLOGIST Ot 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 02/25/2017 BAIMAANNEANAYELI L FAMILY SOCIOLOGIST Ot 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 03/01/2017 JOSEY RIDER DO Ot 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, NEC, LUMBAR REGION, 03/02/2017 LOYDA MCEKON MD Ot E11.9 TYPE 2 DIABETES MELLITUS WITHOUT COMPLIC 03/02/2017 LOYDA MCKEON MD Ot E78.00 PURE HYPERCHOLESTEROLEMIA, UNSPECIFIED 03/02/2017 LOYDA MCKEON MD Ot F03.90 UNSPECIFIED DEMENTIA WITHOUT BEHAVIORAL 03/02/2017 LOYDA MCKEON MD Ot F17.210 NICOTINE DEPENDENCE, CIGARETTES, UNCOMPL 03/02/2017 LOYDA MCKEON MD Ot I25.10 ATHSCL HEART DISEASE OF [place] CORONARY 03/02/2017 LOYDA MCKEON MD Ot I25.2 [...] ENCOUNTER 03/02/2017 LOYDA MCKEON MD, Ot Z79.4 CORRECTION (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 03/02/2017 LOYDA MCKEON MD, Ot Z79.82 CORRECTION (CURRENT) USE OF ASPIRIN 03/02/2017 LOYDA MCKEON [...] DICKENS Ot I25.10 ATHSCL HEART DISEASE OF [place] CORONARY 03/03/2017 ANAYELI DICKENS Ot I65.23 OCCLUSION [...] DICKENS Ot I25.10 ATHSCL HEART DISEASE OF [place] CORONARY 03/18/2017 ANAYELI DICKENS Ot I34.0 NONRHEUMATIC [...] NOS 03/31/2017 Ot 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 [place] CORON 03/31/2017 Ot 433.10 CAROTID ARTERY OCCLUSION [...] MAMMO-MALIGN NEOPLASM OF [place] 03/31/2017 NEY ASTUDILLO CIRCULAR KN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 Ot 719.07 JOINT EFFUSION-ANKLE 03/31/2017 NEY ASTUDILLO CIRCULAR KN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 Ot 719.47 JOINT PAIN-ANKLE 03/31/2017 JOSEY RIDER [...] DICKENS Ot I25.10 ATHSCL HEART DISEASE OF [place] CORONARY 03/31/2017 JOSEY RIDER DO Ot R15.9 FULL INCONTINENCE OF FECES 03/31/2017 JOSEY RIDER DO Ot R32 UNSPECIFIED URINARY INCONTINENCE 03/31/2017 JOSEY RIDER DO, Ot R92.8 OTH ABN AND INCONCLUSIVE FINDINGS ON DX 03/31/2017 ANAYELI DICKENS Ot E78.4 OTHER HYPERLIPIDEMIA 03/31/2017 ANAYELI DICKENS Ot I10 ESSENTIAL (PRIMARY) HYPERTENSION 03/31/2017 ANAYELI DICKENS Ot I25.10 ATHSCL HEART DISEASE OF [place] CORONARY 03/31/2017 JOSEY RIDER DO Ot M48.56XA [...] DICKENS Ot I25.10 ATHSCL HEART DISEASE OF [place] CORONARY 03/31/2017 ANAYELI DICKENS Ot I65.23 OCCLUSION [...] FOR COND O 03/31/2017 ANAYELI DICKENS L FAMILY SOCIOLOGIST Ot E78.4 OTHER HYPERLIPIDEMIA 03/31/2017 BAIMA ANAYELI L FAMILY SOCIOLOGIST Ot I10 ESSENTIAL (PRIMARY) HYPERTENSION 03/31/2017 BAIMA ANAYELI L FAMILY SOCIOLOGIST Ot I25.10 ATHSCL HEART DISEASE OF [place] CORONARY 03/31/2017 BAIMA ANAYELI L FAMILY SOCIOLOGIST Ot I34.0 NONRHEUMATIC MITRAL (VALVE) INSUFFICIENC 03/31/2017 BAIMA ANAYELI L FAMILY SOCIOLOGIST Ot I35.8 OTHER NONRHEUMATIC AORTIC VALVE DISORDER 03/31/2017 BAIMAANNEANAYELI L FAMILY SOCIOLOGIST Ot 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 03/31/2017 BAIMA ANAYELI L FAMILY SOCIOLOGIST Ot 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 03/31/2017 BAIMA ANAYELI L FAMILY SOCIOLOGIST Ot E34.0 CARCINOID SYNDROME 03/31/2017 BAIMA ANAYELI L FAMILY SOCIOLOGIST Ot E78.4 OTHER HYPERLIPIDEMIA 03/31/2017 BAIMA, ANAYELI L FAMILY SOCIOLOGIST Ot I10 ESSENTIAL (PRIMARY) HYPERTENSION 03/31/2017 BAIMA ANAYELI L FAMILY SOCIOLOGIST Ot I25.10 ATHSCL HEART DISEASE OF [place] CORONARY 03/31/2017 BAIMA ANAYELI L FAMILY SOCIOLOGIST Ot I34.0 NONRHEUMATIC MITRAL (VALVE) INSUFFICIENC 03/31/2017 BAIMA ANAYELI L FAMILY SOCIOLOGIST Ot I35.8 OTHER NONRHEUMATIC AORTIC VALVE DISORDER 03/31/2017 BAIMA, ANAYELI L FAMILY SOCIOLOGIST Ot I65.23 OCCLUSION AND STENOSIS OF BILATERAL NG 03/31/2017 BAIMA ANAYELI L FAMILY SOCIOLOGIST Ot E78.4 OTHER HYPERLIPIDEMIA 03/31/2017 BAIMA, ANAYELI L FAMILY SOCIOLOGIST Ot I10 ESSENTIAL (PRIMARY) HYPERTENSION 03/31/2017 BAIMA ANAYELI L FAMILY SOCIOLOGIST Ot I25.10 ATHSCL HEART DISEASE OF [place] CORONARY 03/31/2017 BAIMA ANAYELI L FAMILY SOCIOLOGIST Ot I34.0 NONRHEUMATIC MITRAL (VALVE) INSUFFICIENC 03/31/2017 BAIMA, ANAYELI L FAMILY SOCIOLOGIST Ot I35.8 OTHER NONRHEUMATIC AORTIC VALVE DISORDER 03/31/2017 BAIMA, ANAYELI L FAMILY SOCIOLOGIST Ot I65.23 OCCLUSION AND STENOSIS OF BILATERAL NG 03/31/2017 JOSEY RIDER DO Ot M81.0 AGE-RELATED OSTEOPOROSIS W/O CURRENT PAT 03/31/2017 JOSEY RIDER DO, Ot S32.010S WEDGE COMPRESSION FRACTURE OF FIRST LUMB 03/31/2017 JOSEY RIDER DO Ot X58.XXXS EXPOSURE TO OTHER SPECIFIED FACTORS, SEQ 03/31/2017 JOSEY RIDRE DO Ot Y99.8 OTHER EXTERNAL CAUSE STATUS [...] Z Ot I25.10 ATHSCL HEART DISEASE OF [place] CORONARY 04/02/2017 GALINA MARCUM PRAKASH Z Ot K21.9 GASTRO-ESOPHAGEAL REFLUX DISEASE WITHOUT 04/02/2017 GALINA MARCUM PRAKASH Z Ot S32.010A WEDGE COMPRESSION FRACTURE OF FIRST LUMB 04/02/2017 GALINA MARCUM PRAKASH Z Ot X58.XXXA EXPOSURE TO OTHER SPECIFIED FACTORS, INI 04/02/2017 GALINA MARCUM PRAKASH Z Ot Y99.8 OTHER EXTERNAL CAUSE STATUS 04/02/2017 GALINA MARCUM PRAKASH Z Ot 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 DRIVER (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 04/02/2017 GALINA MARCUM RPAKASH Z Ot Z79.899 OTHER COMMERCIAL DRIVER (CURRENT) DRUG THERAPY 04/02/2017 GALINA MARCUM PRAKASH Z Ot Z95.5 PRESENCE OF CORONARY ANGIOPLASTY IMPLANT 04/02/2017 JOSEY RIDER DO Ot S32.010D WEDGE COMPRSN FX FIRST LUM VERT, SUBS FO 04/02/2017 JOSEY RIDER DO Ot Z09 ENCNTR FOR F/U EXAM AFT TRTMT FOR COND O 04/05/2017 JOSEY RIDER DO Ot M81.0 AGE-RELATED OSTEOPOROSIS W/O CURRENT PAT 04/06/2017 BAIMA, ANAYELI L FAMILY SOCIOLOGIST Ot E78.4 OTHER HYPERLIPIDEMIA 04/06/2017 ANAYELI DICKENS L FAMILY SOCIOLOGIST Ot I10 ESSENTIAL (PRIMARY) HYPERTENSION 04/06/2017 ANAYELI DICKENS FAMILY SOCIOLOGIST Ot I25.10 ATHSCL HEART DISEASE OF [place] CORONARY 04/06/2017 ANAYELI DICKENS FAMILY SOCIOLOGIST Ot I34.0 NONRHEUMATIC MITRAL (VALVE) INSUFFICIENC 04/06/2017 ANAYELI DICKENS FAMILY SOCIOLOGIST Ot I35.8 OTHER NONRHEUMATIC AORTIC VALVE DISORDER 04/06/2017 ANAYELI DICKENS L FAMILY SOCIOLOGIST Ot 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 04/06/2017 CHRISSIEANAYELI L FAMILY SOCIOLOGIST Ot 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 04/06/2017 JOSEY RIDER DO, Ot S32.010D WEDGE COMPRSN FX FIRST LUM VERT, SUBS FO 04/06/2017 JOSEY RIDER DO, Ot Z09 ENCNTR FOR F/U EXAM AFT TRTMT FOR COND O 04/07/2017 ANAYELI DICKENS FAMILY SOCIOLOGIST Ot E78.4 OTHER HYPERLIPIDEMIA 04/07/2017 ANAYELI DICKENS FAMILY SOCIOLOGIST Ot I10 ESSENTIAL (PRIMARY) HYPERTENSION 04/07/2017 ANAYELI DICKENS FAMILY SOCIOLOGIST Ot I25.10 ATHSCL HEART DISEASE OF [place] CORONARY 04/07/2017 ANAYELI DICKENS FAMILY SOCIOLOGIST Ot I34.0 NONRHEUMATIC MITRAL (VALVE) INSUFFICIENC 04/07/2017 NICKANAYELI HURTADO FAMILY SOCIOLOGIST Ot I35.8 OTHER NONRHEUMATIC AORTIC VALVE DISORDER 04/07/2017 CHRISSIE ANAYELI Hilton FAMILY SOCIOLOGIST Ot I65.23 OCCLUSION AND STENOSIS OF BILATERAL NG 04/07/2017 JOSEY RIDER DO Ot M81.0 AGE-RELATED OSTEOPOROSIS W/O CURRENT PAT 04/07/2017 JOSEY RIDER DO, Ot M81.0 AGE-RELATED OSTEOPOROSIS W/O CURRENT PAT 04/07/2017 JOSEY RIEDR DO, Ot M81.0 AGE-RELATED OSTEOPOROSIS W/O CURRENT [...] DICKENSP Ot I10 ESSENTIAL (PRIMARY) HYPERTENSION 04/19/2017 ANAYELI DICKENS Ot I25.10 ATHSCL HEART DISEASE OF [place] CORONARY 04/19/2017 ANAYELI DICKENS Ot I34.0 NONRHEUMATIC [...] NICOTINE DEPENDENCE, CIGARETTES, UNCOMPL 05/13/2017 GALINA MARCUM PARKASH Z Ot F41.9 ANXIETY DISORDER, UNSPECIFIED 05/13/2017 GALINA MARCUM PRAKASH Z Ot I10 ESSENTIAL (PRIMARY) HYPERTENSION 05/13/2017 GALINA MARCUM PRAKASH Z Ot I25.10 ATHSCL HEART DISEASE OF [place] CORONARY 05/13/2017 KAMLESH MOJICA MDIQ Z Ot [...] 05/13/2017 GALINA MARCUM, PRAKASH Z Ot Z79.4 CORRECTION (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 05/13/2017 GALINA MARCUM, PRAKASH Z Ot Z79.899 OTHER CORRECTION (CURRENT) DRUG THERAPY 05/13/2017 GALINA MARCUM, PRAKASH [...] FX FIRST LUM VERT, SUBS FO 06/03/2017 JOSEY RIDER DO Ot Z09 ENCNTR FOR F/U EXAM AFT TRTMT FOR COND O 06/09/2017 JOSEY RIDER DO, Ot S32.010D WEDGE COMPRSN FX FIRST LUM VERT, SUBS FO 06/09/2017 JOSEY RIDER DO Ot Z09 ENCNTR FOR F/U EXAM AFT TRTMT FOR COND O 06/17/2017 JOSEY RIDER DO Ot S32.010D WEDGE COMPRSN FX FIRST LUM VERT, SUBS FO 06/17/2017 JOSEY RIDER DO Ot Z09 ENCNTR FOR [...] TREATMENT NOT CARRIED OUT 03/22/2018 NEY ASTUDILLO CIRCULAR KN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 Ot 719.07 JOINT EFFUSION-ANKLE 03/22/2018 NEY ASTUDILLO [...] INCONCLUSIVE FINDINGS ON DX 03/22/2018 ANAYELI DICKENS FAMILY SOCIOLOGIST Ot I65.23 OCCLUSION AND STENOSIS OF BILATERAL NG 03/22/2018 ANAYELI DICKENS FAMILY SOCIOLOGIST Ot Z53.9 PROCEDURE AND TREATMENT NOT CARRIED OUT, 03/22/2018 ANAYELI DICKENS FAMILY SOCIOLOGIST Ot E78.4 OTHER HYPERLIPIDEMIA 03/22/2018 ANAYELI DICKENS FAMILY SOCIOLOGIST Ot I65.23 OCCLUSION AND STENOSIS OF BILATERAL NG 03/22/2018 JOSEY RIDER DO Ot R92.8 OTH ABN AND INCONCLUSIVE FINDINGS ON DX 03/22/2018 ANAYELI DICKENS FAMILY SOCIOLOGIST Ot E78.4 OTHER HYPERLIPIDEMIA 03/22/2018 ANAYELI DICKENS Ot I25.10 ATHSCL HEART DISEASE OF [place] CORONARY 03/22/2018 JOSEY RIDER DO Ot R15.9 FULL INCONTINENCE OF FECES 03/22/2018 JOSEY RIDER DO Ot R32 UNSPECIFIED URINARY INCONTINENCE 03/22/2018 JOSEY RIDER DO, Ot R92.8 OTH ABN AND INCONCLUSIVE FINDINGS ON DX 03/22/2018 ANAYELI DICKENS Ot E78.4 OTHER HYPERLIPIDEMIA 03/22/2018 ANAYELI DICKENS FAMILY SOCIOLOGIST Ot I10 ESSENTIAL (PRIMARY) HYPERTENSION 03/22/2018 ANAYELI DICKENS Ot I25.10 ATHSCL HEART DISEASE OF [place] CORONARY 03/22/2018 JOSEY RIDER DO Ot 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, NEC, LUMBAR REGION, 03/22/2018 JOSEY RIDER DO Ot S32.010A WEDGE COMPRESSION FRACTURE OF FIRST LUMB 03/22/2018 JOSEY RIDER DO Ot W19.XXXA UNSPECIFIED FALL, INITIAL ENCOUNTER 03/22/2018 JOSEY RIDER DO Ot Y99.8 OTHER EXTERNAL CAUSE STATUS 03/22/2018 ANAYELI DICKENS Ot E78.4 OTHER HYPERLIPIDEMIA 03/22/2018 ANAYELI DICKENS FAMILY SOCIOLOGIST Ot I10 ESSENTIAL (PRIMARY) HYPERTENSION 03/22/2018 ANAYELI DICKENS Ot I25.10 ATHSCL HEART DISEASE OF [place] CORONARY 03/22/2018 ANAYELI DICKENSP Ot I65.23 OCCLUSION AND STENOSIS OF BILATERAL NG 03/22/2018 JOSEY RIDER DO Ot N32.3 DIVERTICULUM OF BLADDER 03/22/2018 JOSEY RIDER DO Ot N32.89 OTHER SPECIFIED DISORDERS OF BLADDER 03/22/2018 ANAYELI DICKENS FAMILY SOCIOLOGIST Ot E78.4 OTHER HYPERLIPIDEMIA 03/22/2018 ANAYELI DICKENS FAMILY SOCIOLOGIST Ot I10 ESSENTIAL (PRIMARY) HYPERTENSION 03/22/2018 ANAYELI DICKENS FAMILY SOCIOLOGIST Ot I25.10 ATHSCL HEART DISEASE OF [place] CORONARY 03/22/2018 ANAYELI DICKENS FAMILY SOCIOLOGIST Ot I34.0 NONRHEUMATIC MITRAL (VALVE) INSUFFICIENC 03/22/2018 ANAYELI DICKENS FAMILY SOCIOLOGIST Ot I35.8 OTHER NONRHEUMATIC AORTIC VALVE DISORDER 03/22/2018 ANAYELI DICKENS FAMILY SOCIOLOGIST Ot 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 03/22/2018 BAIANAYELI HURTADO L FAMILY SOCIOLOGIST Ot 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 03/22/2018 ANAYELI DICKENS L FAMILY SOCIOLOGIST Ot E34.0 CARCINOID SYNDROME 03/22/2018 BAIANAYELI HURTADO L FAMILY SOCIOLOGIST Ot E78.4 OTHER HYPERLIPIDEMIA 03/22/2018 BAIMAANNEANAYELI L FAMILY SOCIOLOGIST Ot I10 ESSENTIAL (PRIMARY) HYPERTENSION 03/22/2018 BAIANNE HURTADOHER L FAMILY SOCIOLOGIST Ot I25.10 ATHSCL HEART DISEASE OF [place] CORONARY 03/22/2018 ANAYELI DICKENS L FAMILY SOCIOLOGIST Ot I34.0 NONRHEUMATIC MITRAL (VALVE) INSUFFICIENC 03/22/2018 ANAYELI DICKENS L FAMILY SOCIOLOGIST Ot I35.8 OTHER NONRHEUMATIC AORTIC VALVE DISORDER 03/22/2018 BAIANAYELI HURTADO L FAMILY SOCIOLOGIST Ot I65.23 OCCLUSION AND STENOSIS OF BILATERAL NG 03/22/2018 ANAYELI DICKENS L FAMILY SOCIOLOGIST Ot E78.4 OTHER HYPERLIPIDEMIA 03/22/2018 BAIANNE HURTADOHER L FAMILY SOCIOLOGIST Ot I10 ESSENTIAL (PRIMARY) HYPERTENSION 03/22/2018 ANAYELI DICKENS L FAMILY SOCIOLOGIST Ot I25.10 ATHSCL HEART DISEASE OF [place] CORONARY 03/22/2018 ANAYELI DICKENS L FAMILY SOCIOLOGIST Ot I34.0 NONRHEUMATIC MITRAL (VALVE) INSUFFICIENC 03/22/2018 NICKANAYELI HURTADO L FAMILY SOCIOLOGIST Ot I35.8 OTHER NONRHEUMATIC AORTIC VALVE DISORDER 03/22/2018 NICKANAYELI HURTADO FAMILY SOCIOLOGIST Ot I65.23 OCCLUSION AND STENOSIS OF BILATERAL [...] OCCLUSION AND STENOSIS OF BILATERAL NG 03/22/2018 URI LEIVA MD Ot N39.0 URINARY TRACT [...] CCDS Ot I25.10 ATHSCL HEART DISEASE OF [place] CORONARY 03/24/2018 ABRAN MARCUM FACC, JOAQUÍN HINOJOSAP CCDS Ot I65.29 OCCLUSION AND STENOSIS OF UNSPECIFIED CA 03/24/2018 ABRAN MARCUM FACC, JOAQUÍN HINOJOSAP CCDS Ot Z72.0 TOBACCO USE 03/25/2018 RIDINGS, NEY C CIRCULAR KN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 Ot 719.07 JOINT EFFUSION-ANKLE 03/25/2018 RIDINGS, NEY C CIRCULAR KN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 Ot 719.47 JOINT PAIN-ANKLE 03/25/2018 JOSEY RIDER [...] Ot E78.4 OTHER HYPERLIPIDEMIA 03/25/2018 ANAYELI DICKENS FAMILY SOCIOLOGIST Ot I65.23 OCCLUSION AND STENOSIS OF BILATERAL NG 03/25/2018 JOSEY RIDER DO Ot R92.8 OTH ABN AND INCONCLUSIVE FINDINGS ON DX 03/25/2018 ANAYELI DICKENSP Ot E78.4 OTHER HYPERLIPIDEMIA 03/25/2018 ANAYELI DICKENSP Ot I25.10 ATHSCL HEART DISEASE OF [place] CORONARY 03/25/2018 JOSEY RIDER DO Ot R15.9 FULL INCONTINENCE OF FECES 03/25/2018 JOSEY RIDER DO Ot R32 UNSPECIFIED URINARY INCONTINENCE 03/25/2018 JOSEY RIDER DO Ot R92.8 OTH ABN AND INCONCLUSIVE FINDINGS ON DX 03/25/2018 ANAYELI DICKENS FAMILY SOCIOLOGIST Ot E78.4 OTHER HYPERLIPIDEMIA 03/25/2018 ANAYELI DICKENS FAMILY SOCIOLOGIST Ot I10 ESSENTIAL (PRIMARY) HYPERTENSION 03/25/2018 ANAYELI DICKENS FAMILY SOCIOLOGIST Ot I25.10 ATHSCL HEART DISEASE OF [place] CORONARY 03/25/2018 JOSEY RIDER DO Ot 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, NEC, LUMBAR REGION, 03/25/2018 JOSEY RIDER DO Ot S32.010A WEDGE COMPRESSION FRACTURE OF FIRST LUMB 03/25/2018 JOSEY RIDER DO Ot W19.XXXA UNSPECIFIED FALL, INITIAL ENCOUNTER 03/25/2018 JOSEY RIDER DO Ot Y99.8 OTHER EXTERNAL CAUSE STATUS 03/25/2018 ANAYELI DICKENS FAMILY SOCIOLOGIST Ot E78.4 OTHER HYPERLIPIDEMIA 03/25/2018 ANAYELI DICKENS FAMILY SOCIOLOGIST Ot I10 ESSENTIAL (PRIMARY) HYPERTENSION 03/25/2018 ANAYELI DICKENS FAMILY SOCIOLOGIST Ot I25.10 ATHSCL HEART DISEASE OF [place] CORONARY 03/25/2018 ANAYELI DICKENS FAMILY SOCIOLOGIST Ot I65.23 OCCLUSION AND STENOSIS OF BILATERAL NG 03/25/2018 JOSEY RIDER DO Ot N32.3 DIVERTICULUM OF BLADDER 03/25/2018 JOSEY RIDER DO Ot N32.89 OTHER SPECIFIED DISORDERS OF BLADDER 03/25/2018 ANAYELI DICKENS FAMILY SOCIOLOGIST Ot E78.4 OTHER HYPERLIPIDEMIA 03/25/2018 ANAYELI DICKENS FAMILY SOCIOLOGIST Ot I10 ESSENTIAL (PRIMARY) HYPERTENSION 03/25/2018 ANAYELI DICKENS FAMILY SOCIOLOGIST Ot I25.10 ATHSCL HEART DISEASE OF [place] CORONARY 03/25/2018 ANAYELI DICKENS L FAMILY SOCIOLOGIST Ot I34.0 NONRHEUMATIC MITRAL (VALVE) INSUFFICIENC 03/25/2018 ANAYELI DICKENS L FAMILY SOCIOLOGIST Ot I35.8 OTHER NONRHEUMATIC AORTIC VALVE DISORDER 03/25/2018 ANAYELI DICKENS L FAMILY SOCIOLOGIST Ot 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 03/25/2018 ANAYELI DICKENS L FAMILY SOCIOLOGIST Ot 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 03/25/2018 ANAYELI DICKENS L FAMILY SOCIOLOGIST Ot E34.0 CARCINOID SYNDROME 03/25/2018 ANAYELI DICKENS FAMILY SOCIOLOGIST Ot E78.4 OTHER HYPERLIPIDEMIA 03/25/2018 BAIANAYELI HURTADO L FAMILY SOCIOLOGIST Ot I10 ESSENTIAL (PRIMARY) HYPERTENSION 03/25/2018 ANAYELI DICKENS L FAMILY SOCIOLOGIST Ot I25.10 ATHSCL HEART DISEASE OF [place] CORONARY 03/25/2018 ANAYELI DICKENS L FAMILY SOCIOLOGIST Ot I34.0 NONRHEUMATIC MITRAL (VALVE) INSUFFICIENC 03/25/2018 BAIANAYELI HURTADO L FAMILY SOCIOLOGIST Ot I35.8 OTHER NONRHEUMATIC AORTIC VALVE DISORDER 03/25/2018 ANAYELI DICKENS L FAMILY SOCIOLOGIST Ot I65.23 OCCLUSION AND STENOSIS OF BILATERAL NG 03/25/2018 ANAYELI DICKENS FAMILY SOCIOLOGIST Ot E78.4 OTHER HYPERLIPIDEMIA 03/25/2018 ANAYELI DICKENS L FAMILY SOCIOLOGIST Ot I10 ESSENTIAL (PRIMARY) HYPERTENSION 03/25/2018 ANAYELI DICKENS FAMILY SOCIOLOGIST Ot I25.10 ATHSCL HEART DISEASE OF [place] CORONARY 03/25/2018 ANAYELI DICKENS L FAMILY SOCIOLOGIST Ot I34.0 NONRHEUMATIC MITRAL (VALVE) INSUFFICIENC 03/25/2018 ANAYELI DICKENS FAMILY SOCIOLOGIST Ot I35.8 OTHER NONRHEUMATIC AORTIC VALVE DISORDER 03/25/2018 ANAYELI DICKENS L FAMILY SOCIOLOGIST Ot I65.23 OCCLUSION AND STENOSIS OF BILATERAL [...] CCDS Ot E78.5 HYPERLIPIDEMIA, UNSPECIFIED 03/25/2018 ABRAN HNIOJOSAC, ALI FACP CCDS Ot I10 ESSENTIAL (PRIMARY) HYPERTENSION 03/25/2018 ABRAN MARCUM FACC, ALI FACP CCDS Ot I25.10 ATHSCL HEART DISEASE OF [place] CORONARY 03/25/2018 ABRAN MARCUM FACC, ALI FACP [...] CCDS Ot I25.10 ATHSCL HEART DISEASE OF [place] CORONARY 03/29/2018 ABRAN MARCUM FACC, ALI FACP CCDS Ot Z72.0 TOBACCO USE 04/03/2018 ABRAN MARCUM FACC, ALI FACP CCDS Ot E11.9 TYPE 2 DIABETES MELLITUS WITHOUT COMPLIC 04/03/2018 ABRAN MARCUM FACC, ALI FACP CCDS Ot E78.5 HYPERLIPIDEMIA, UNSPECIFIED 04/03/2018 ABRAN MARCUM FACC, ALI FACP CCDS Ot I10 ESSENTIAL (PRIMARY) HYPERTENSION 04/03/2018 ABRAN MARCUM FACC, ALI FACP CCDS Ot I25.10 ATHSCL HEART DISEASE OF [place] CORONARY 04/03/2018 ABRAN MARCUM FACC, ALI FACP CCDS Ot Z72.0 TOBACCO USE 04/13/2018 ABRAN MARCUM FACC, ALI FACP CCDS Ot E11.9 TYPE 2 DIABETES MELLITUS WITHOUT COMPLIC 04/13/2018 ABRAN MARCUM FACC, ALI FACP CCDS Ot E78.5 HYPERLIPIDEMIA, UNSPECIFIED 04/13/2018 ABRAN HINOJOSAC, ALI FACP CCDS Ot I10 ESSENTIAL (PRIMARY) HYPERTENSION 04/13/2018 ABRAN MARCUM FACC, ALI FACP CCDS Ot I25.10 ATHSCL HEART DISEASE OF [place] CORONARY 04/13/2018 ABRAN HINOJOSAC, ALI FACP CCDS [...] CCDS Ot I25.10 ATHSCL HEART DISEASE OF [place] CORONARY 04/21/2018 ABRAN MARCUM FACC, ALI FACP CCDS Ot Z72.0 TOBACCO USE 04/25/2018 JOSEY RIDER DO Ot I70.213 ATHSCL [place] ARTERIES OF EXTRM W INTRMT 04/25/2018 JOSEY RIDER DO Ot I70.213 ATHSCL [place] ARTERIES OF EXTRM W INTRMT 04/27/2018 JOSEY [...] CCDS Ot I25.10 ATHSCL HEART DISEASE OF [place] CORONARY 04/28/2018 ABRAN MARCUM [facility], ALI FACP CCDS Ot I65.29 OCCLUSION AND STENOSIS OF UNSPECIFIED CA 04/28/2018 ABRAN MARCUM [facility], ALI FACP CCDS Ot Z72.0 TOBACCO USE 05/12/2018 ABRAN MARCUM [facility], ALI FACP CCDS Ot E11.9 TYPE 2 DIABETES MELLITUS WITHOUT COMPLIC 05/12/2018 ABRAN MARCUM [facility], ALI FACP CCDS Ot E78.5 HYPERLIPIDEMIA, UNSPECIFIED 05/12/2018 ABRAN MARCUM [facility], ALI FACP CCDS Ot I10 ESSENTIAL (PRIMARY) HYPERTENSION 05/12/2018 ABRAN MARCUM [facility], ALI FACP CCDS Ot I25.10 ATHSCL HEART DISEASE OF [place] CORONARY 05/12/2018 ABRAN MARCUM [facility], ALI FACP CCDS Ot Z72.0 TOBACCO USE [...] erythrocyte count by microscopy (number/high power field) [facility] NRG Automated urine sediment leukocyte count by [...] culture - 04/08/17 08:35 Bacterial urine culture [id number] NRG COLONY COUNT >100,000/ML NRG FTX;REPORTABLE PLUS, [...] Status Pt. Type Provider Facility Loc./Unit Complaint [id number] 06/15/2018 08:12:00 06/15/2018 23:59:59 CLS Outpatient NATHANIEL MOFFETT MD [facility] LAB Z01.810,N39.0 [id number] 06/10/2018 07:57:00 06/10/2018 23:59:59 CLS Outpatient NATHANIEL MOFFETT MD [facility] LAB PREOPERATIVE CARDIOVASCULAR EXAM [id number] 06/09/2018 16:16:00 06/09/2018 23:59:59 CLS Outpatient KYMBERLY MENSAH DAVID Q [facility] RAD CHRONIC ULCERATION TO THE LEFT 5TH METATARSAL HEAD [id number] 06/08/2018 10:35:00 06/08/2018 23:59:59 CLS Outpatient KYMBERLY MENSAH DAVID Q [facility] LAB CELLULITIS LEFT FOOT [id number] 04/26/2018 08:55:00 04/26/2018 23:59:59 CLS Outpatient JOSEY RIDER DO [facility] RAD PAD OF LOWER EXTREMITIES [id number] 03/28/2018 08:14:00 03/28/2018 23:59:59 CLS Outpatient ABRAN MARCUM FACC, JOAQUÍN LUI CCDS [facility] RT CAD,CAROTID ARTERY STENOSIS,HLD,HTN [id number] 03/22/2018 10:19:00 03/22/2018 23:59:59 CLS Outpatient ABRAN MARCUM FACC, JOAQUÍN LUI CCDS [facility] CARD CAD,CAROTID ARTERY STENOSIS,HLD,HTN [id number] 08/25/2017 08:12:00 08/25/2017 23:59:59 CLS Outpatient ADRY BARRERAJOSEY Kati [facility] RAD RIGHT ARM PAIN/ SWELLING [id number] 08/09/2017 14:36:00 08/09/2017 23:59:59 CLS Preadmit ADRY BARRERA JOSEY Kati [facility] RAD BREAST ABNORMALITY [id number] 07/20/2017 10:20:00 07/20/2017 23:59:59 CLS Preadmit JOSEY RIDER DO [facility] RAD SCREENING Z12.31 [id number] 06/25/2017 10:41:00 06/25/2017 11:36:00 DIS Outpatient JOSEY RIDER DO [facility] REHAB COMP FX L1 S/P KYPHOPLASTY [id number] 05/31/2017 11:02:00 06/01/2017 00:01:00 DIS Outpatient JOSEY RIDER DO [facility] REHAB COMP FX L1 S/P KYPHOPLASTY [id number] 04/20/2017 09:00:00 04/20/2017 23:59:59 CLS Outpatient URI LEIVA MD [facility] LAB Z01.810 Z01.818 [id number] 04/08/2017 08:25:00 04/08/2017 23:59:59 CLS Outpatient URI LEIVA MD [facility] LAB N39.0,I65.23,Z01.818 [id number] 04/07/2017 12:45:00 04/07/2017 23:59:59 CLS Outpatient JOSEY RIDER DO Via [facility] ME1.0 [id number] 03/31/2017 10:14:00 03/31/2017 23:59:59 CLS Preadmit JOSEY RIDER DO [facility] M81.0 [id number] 03/18/2017 10:16:00 03/18/2017 23:59:59 CLS Outpatient JOSEY RIDER DO [facility] RAD LUMBAR COMPRESSION FRACTURES [id number] 03/16/2017 07:30:00 03/16/2017 23:59:59 CLS Outpatient ANAYELI DICKENS [facility] CARD CAD [id number] 03/02/2017 07:42:00 03/02/2017 23:59:59 CLS Outpatient ANAYELI DICKENS [facility] CARD CAD [id number] 03/02/2017 08:20:00 03/02/2017 11:11:00 DIS Emergency LOYDA MCKEON MD [facility] ER FALL [id number] 02/24/2017 11:30:00 02/24/2017 23:59:59 CLS Outpatient ANAYELI DICKENS [facility] RAD CAROTID ARTERY STENOSIS,CAD [id number] 02/16/2017 07:51:00 02/16/2017 23:59:59 CLS Outpatient JOSEY RIDER DO [facility] RAD N39.0 EVALUATE FOR FISTULA [id number] 02/03/2017 18:02:00 02/05/2017 14:30:00 DIS Inpatient CARMEN RAMIREZ DO [facility] 4TH UTI W RESISTANCE,AMS, HYPONATREMIC,S/P KYPHOPLASTY [id number] 02/02/2017 10:24:00 02/02/2017 23:59:59 CLS Outpatient ANAYELI DICKENS [facility] LAB I25.10 [id number] 02/02/2017 11:10:00 02/02/2017 16:45:00 DIS Outpatient PRAKASH MOJICA MD [facility] SDC L1 COMPRESSION FRACTURE [id number] 01/29/2017 05:26:00 01/29/2017 10:38:00 DIS Outpatient PRAKASH MOJICA MD [facility] PREOP L1 COMPRESSION FRACTURE [id number] 01/28/2017 10:14:00 01/28/2017 23:59:59 CLS Outpatient JOSEY RIDER DO [facility] RAD FRACTURE L1 [id number] 01/26/2017 09:50:00 01/26/2017 23:59:59 CLS Outpatient JOSEY RIDER DO [facility] RAD COMPRESSION FX [id number] 01/14/2017 13:33:00 01/14/2017 16:54:00 DIS Emergency CONNOR MODI [facility] ER LOWER BACK PAIN-FALL [id number] 09/16/2016 00:16:00 09/16/2016 23:59:59 CLS Preadmit JOSEY RIDER DO [facility] LAB R19.7 [id number] 06/17/2016 13:44:00 09/15/2016 00:01:00 DIS Outpatient RIDERJOSEY TILLEY DO [facility] LAB R19.7 [id number] 08/21/2016 08:28:00 08/21/2016 23:59:59 CLS Outpatient ANAYELI DICKENS [facility] LAB HLD,CAD,HTN [id number] 08/03/2016 12:54:00 08/03/2016 15:49:00 DIS Emergency KAYLIN DONIS [facility] ER FALL/LEFT HAND INJURY [id number] 07/20/2016 08:33:00 07/20/2016 23:59:59 CLS Outpatient JOSEY RIDER DO [facility] RAD F/U RIGHT BREAST DENSITY [id number] 04/09/2016 07:10:00 04/09/2016 23:59:59 CLS Outpatient JOSEY RIDER DO [facility] RAD URINARY/FECAL INCONTINENCE [id number] 02/14/2016 08:03:00 02/14/2016 23:59:59 CLS Outpatient ANAYELI DICKENS [facility] LAB HLD,CAD [id number] 01/24/2016 08:38:00 01/24/2016 23:59:59 CLS Outpatient RIDERJOSEY TILLEY DO [facility] RAD F/U [id number] 12/30/2015 11:13:00 12/30/2015 23:59:59 CLS Outpatient ANAYELI DICKENS [facility] RAD CAROTID ARTERY STENOSIS [id number] 12/26/2015 07:55:00 12/26/2015 23:59:59 CLS Outpatient ANAYELI DICKENSP [facility] LAB CAROTID ARTERY STENOSIS,HLD [id number] 12/25/2015 08:37:00 12/25/2015 23:59:59 CLS Outpatient ANAYELI DICKENSP [facility] LAB CAROTID ARTERY STENOSIS, HDL [id number] 12/03/2015 09:59:00 12/03/2015 14:45:00 DIS Emergency LAURIE MARCUM, RD Newman [facility] ER CHEST PAIN/FATIGUE UPPER LEG PAIN [id number] 08/05/2015 07:42:00 08/05/2015 23:59:59 CLS Outpatient JOSEY RIDER DO [facility] RAD ABNORMAL MAMMO [id number] 07/25/2015 08:25:00 07/25/2015 23:59:59 CLS Outpatient JOSEY RIDER DO [facility] RAD SCREENING [id number] 03/28/2015 06:02:00 03/28/2015 23:59:59 CLS Outpatient KYMBERLY DPM, DAVID Q [facility] CARD CHRONIC ULCER L 5TH METATARSAL [id number] 02/15/2015 11:20:00 02/15/2015 15:45:00 DIS Outpatient KYMBERLY DPM, ADVID Q [facility] BUNION [id number] 02/11/2015 07:53:00 02/11/2015 23:59:59 CLS Outpatient KYMBERLY DPM, DAVID Q [facility] PREOP BUNION [id number] 01/31/2015 06:00:00 01/31/2015 07:37:00 DIS Outpatient KYMBERLY DPM, DAVID Q [facility] BUNION LEFT FOOT [id number] 01/29/2015 07:28:00 01/29/2015 23:59:59 CLS Outpatient ABRAN MARCUM FACC, JOAQUÍN LUI CCDS [facility] CARD CAD [id number] 01/25/2015 08:23:00 01/25/2015 23:59:59 CLS Outpatient ABRAN MARCUM FACC, JOAQUÍN LUI CCDS [facility] CARD CAD [id number] 01/17/2015 12:02:00 01/17/2015 23:59:59 CLS Outpatient KYMBERLY DPM, DAVID Q [facility] PREOP BUNION LEFT FOOT [id number] 09/24/2014 21:57:00 09/25/2014 12:02:00 DIS Inpatient JOSEY RIDER DO [facility] 4TH HYPOGLYCEMIA [id number] 09/23/2014 11:46:00 09/23/2014 14:06:00 DIS Emergency 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 [facility] ER LOW BLOOD SUGAR [id number] 09/06/2014 09:10:00 09/06/2014 10:45:[address] SULLIVAN MD [facility] ER HYPOGLYCEMIA [id number] 08/01/2014 15:58:00 08/03/2014 10:15:00 DIS Inpatient JOSEY RIDER DO [facility] 4TH UNCONTROLLED DIABETES [id number] 06/27/2013 09:15:00 06/27/2013 23:59:59 CLS Outpatient JOSEY RIDER DO [facility] RAD SCREENING [id number] 05/29/2013 07:57:00 05/29/2013 10:45:[address] SULLIVAN MD [facility] ER POSS VAG ABSCESS [id number] 12/20/2012 11:53:00 12/20/2012 23:59:59 CLS Outpatient BENIINGSNEY 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[employer]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 [facility] RAD PAIN AND SWELLING IN RT ANKLE [id number] 08/06/2014 16:39:00 Document Registration [id number] 08/06/2014 16:39:00 Document Registration [id number] 08/06/2014 16:39:00 Document Registration [id number] 08/06/2014 16:39:00 Document Registration [id number] 08/06/2014 16:39:00 Document Registration [id number] 08/06/2014 16:39:00 Document Registration [id number] 08/06/2014 16:39:00 Document Registration [id number] 07/17/2014 09:06:00 Document Registration [id number] 12/03/2011 09:20:00 Document Registration [id number] 11/16/2011 09:00:00 Document Registration [id number] 06/03/2011 09:07:00 Document Registration [id number] 10/02/2010 06:37:00 Document Registration [id number] 09/18/2010 10:27:00 Document Registration [id number] 06/24/2009 08:17:00 Document Registration [id number] 08/25/2017 10:15:00 08/25/2017 23:59:00 DIS Outpatient JOSEY RIDERbIEmily 02/15/2015 11:23:52 ACT Document Registration
--- NOTE | 2018-07-03 17:31 | NUR ---
EDEL HERRERA admitted to room 432-1, with an admitting diagnosis of left hip fx, CAD, NIDDM, on 07/03/18 from ER via bed, accompanied by staff and family.EDEL HERRERA introduced to surroundings, call light, bed controls, phone, TV, temperature control, lights, meal times, smoking policy, visitor policy, side rail policy, bathrooms and showers. Patient Rights given to patient in the handbook. EDEL HERRERA verbalizes understanding that [facility] is not responsible for the loss or damage to any personal effects or valuables that are kept in the patients posession during their hospitalization. The Patient's Care Plans were discussed with the pt as well as Discharge Planning. EDEL HERRERA verbalizes understanding of Interdisciplinary Patient Education. Patient and/or family were informed about the Rapid Response Team and its purpose.
[2018-07-03 17:57] VITALS: BP 151/62
[2018-07-03] MEDS ORDERED: GENTAMICIN 40 MG/ML 2 ML INJ SDV ONE (19:25)
[2018-07-03] MEDS ORDERED: LIDOCAINE PF 2% 5 ML (XYLOCAINE) VIAL ONE (19:34)
[2018-07-03] MEDS ORDERED: ONDANSETRON 4 MG/2 ML (SDV) Z0FRAN ONE ×2 (19:34→21:26)
[2018-07-03] MEDS ORDERED: proPOfol 200 MG/20 ML (DIPRIVAN) VIAL IV ONE (19:34)
[2018-07-03] MEDS ORDERED: ROCURONIUM 10 MG/ML 5 ML SYRINGE IV ONE (19:34)
[2018-07-03] MEDS ORDERED: fentaNYL INJECTION 100 MCG/2 ML AMP ONE (19:35)
--- NOTE | 2018-07-03 19:35 | NUR ---
TO OR PER BED, FAMILY ACCOMPANIED PT.
[2018-07-03] MEDS ORDERED: SEVOFLURANE (ULTANE) 15 ML INHAL SOLN ONE ×4 (19:36→21:40)
[2018-07-03] MEDS ORDERED: MIDAZOLAM 2 MG/2 ML (VERSED) VIAL ONE (19:36)
[2018-07-03] MEDS ORDERED: ceFAZolin INJECTION 2,000 MG ONE (19:49)
--- NOTE | 2018-07-03 19:56 | Consultation ---
History of Present Illness History of Present Illness Patient Consulted On(holden/time) 07/03/18 19:51 Date Seen by Provider: Jul 03, 2018 Time Seen by Provider: 07:35 Reason for Visit: Fall, hip pain History of Present Illness 77 y/o white female fell at home earlier today, injuring her left hep. She is awake, alert, denies any other pain. Previous surgery years ago on her left hip. Allergies and Home Medications Allergies Coded Allergies: No Known Drug Allergies (Unverified , 01/29/17) Home Medications Aspirin 81 Mg Tablet.dr, 81 MG PO DAILY, (Reported) Atorvastatin Calcium 80 Mg Tablet, 80 MG PO DAILY, (Reported) Canagliflozin 100 Mg Tablet, 100 MG PO DAILY, (Reported) Ciprofloxacin HCl 500 Mg Tablet, 500 MG PO BID Prescribed by: CARMEN RAMIREZ on 02/05/17 1125 Clopidogrel Bisulfate 75 Mg Tablet, 75 MG PO DAILY, (Reported) Cyanocobalamin 1,000 Mcg/Ml Inj, 1,000 MCG IJ OF , (Reported) Diclofenac Sodium 100 Gm Gel..gram., TOP BID PRN for JOINT PAIN, (Reported) Donepezil HCl 10 Mg Tablet, 10 MG PO HS, (Reported) Ergocalciferol (Vitamin D2) 50,000 Unit Capsule, 50,000 UNITS PO Mo, (Reported) Esomeprazole Magnesium 40 Mg Cap, 40 MG PO DAILY, (Reported) Insulin Glargine,Hum.rec.anlog 100 Unit/1 Ml Vial, 23 UNIT SQ HS, (Reported) Insulin Lispro 100 Unit/1 Ml Vial, SC PC, (Reported) BELOW 100 = O UNITS 100-130 = 2 UNITS 131-160 = 3 UNITS 161-190 = 4 UNITS 191 AND ABOVE = 5 UNITS L.acidoph & Paracasei,B.lactis 1 Each Capsule, 1 CAP PO DAILY, (Reported) Melatonin 10 Mg Tablet.er, 10 MG PO HS, (Reported) Mesalamine 0.375 Gm Cap.er.24h, 2 CAP PO DAILY, (Reported) LAST DOSE TO BE TAKEN 02-05-17 Mirabegron 50 Mg Tab.er.24h, 50 MG PO DAILY, (Reported) Nitrofurantoin Monohyd/M-Cryst 100 Mg Capsule, 1 TAB PO BID Prescribed by: LOYDA MCKEON on 03/02/17 1059 Pioglitazone HCl 15 Mg Tablet, 15 MG PO DAILY, (Reported) Tramadol HCl 50 Mg Tablet, 50 MG PO Q6H PRN for PAIN-MODERATE, (Reported) Venlafaxine HCl 150 Mg Cap.er.24h, 150 MG PO HS, (Reported) Patient Home Medication List Home Medication List Reviewed: Yes Past Sgyyyml-Xconor-Waphbz Hx Past Med/Social Hx: Reviewed Nursing Past Med/Soc Hx Patient Social History Alcohol Use: Denies Use Recreational Drug Use: No Smoking Status: Current Everyday Smoker Type Used: Cigarettes (half a pack a day) 2nd Hand Smoke Exposure: No Recent Foreign Travel: No Contact w/Someone Who Travel: No Recent Infectious Disease Expo: No Recent Hopitalizations: No Immunizations Up To Date Tetanus Booster (TDap): Unknown PED Vaccines UTD: No Date of Pneumonia Vaccine: Jan 08, 2014 Date of Influenza Vaccine: Mar 10, 2018 Seasonal Allergies Seasonal Allergies: No Past Medical History Surgeries: Yes (CAROTID, STENTS, KYPHOPLASTY, L HIP, R ANKLE) Appendectomy, Coronary Stent, Eye Surgery, 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, Joint Replacement ( Right MAXIMINO), Orthopedic Respiratory: No Cardiac: Yes (STENTS 2001) Coronary Artery Disease, Heart Attack, High Cholesterol Neurological: Yes Dementia, TIA 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 Disorders: No Female 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 Disorders: Denies 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 Sexually Transmitted Disease: No HIV/AIDS: No Gastrointestinal: Yes Colitis, Gastroesophageal Reflux, Chronic Diarrhea Musculoskeletal: Yes (COMPR FX L1) Osteoporosis, Arthritis, Chronic Back Pain Endocrine: Yes Diabetes, Insulin dep Loss of Vision: Bilateral Hearing Impairment: Denies Cancer: No Psychosocial: Yes Anxiety Integumentary: No Recent Skin Changes Blood Disorders: No Adverse Reaction/Blood Tranf: No (N/A) Family Medical History Alzheimer's disease (dad) Arthritis (mom) Asthma (sister) Completed stroke (mom) Diabetes mellitus (mom) Fibrocystic disease of breast (sister) Hypercholesterolemia (mom) Hypertension (mom) Myocardial infarction (mom) Neoplasm Parkinson's disease Severe allergy (sister) No Family History of: AIDS Abdominal aortic aneurysm Delbert's disease Alcoholism Aphasia Cancer of mouth Cardiovascular disease Cataracts Colon cancer Congenital disease Congenital heart disease Coronary thrombosis Cystic fibrosis Deafness or hearing loss Dementia Drug abuse Dysphasia Gastroenteritis Glaucoma Headache disorder Infertility Kidney disease Not obtainable due to adoption Osteoporosis (breast cancer) Prostate cancer Psychosocial problem Respiratory disorder Seizure disorder Thyroid disease Visual disorder No Pertinent Family Hx Review of Systems-General Constitutional: no symptoms reported EENTM: no symptoms reported Respiratory: no symptoms reported Cardiovascular: vascular heart diseas Gastrointestinal: no symptoms reported Genitourinary: no symptoms reported Musculoskeletal: joint pain Skin: no symptoms reported Psychiatric/Neurological: No Symptoms Reported Physical Exam-General Problems Physical Exam Vital Signs Vital Signs - First Documented 07/03/18 07/03/18 14:10 17:57 Temp 99.0 Pulse 93 Resp 22 B/P (MAP) 147/83 (104) Pulse Ox 97 O2 Delivery Room Air Capillary Refill : Less Than 3 SecondsLess Than 3 Seconds General Appearance: WD/WN, mild distress Eyes: Bilateral Eye Normal Inspection HEENT: normal ENT inspection Neck: non-tender, supple Respiratory: no respiratory distress, no accessory muscle use Cardiovascular: normal peripheral pulses, regular rate, rhythm Gastrointestinal: non tender, soft Rectal: deferred Back: no vertebral tenderness Extremities: other (painful ROM left hip, right lower and bilateral upper extremities without pain) Neurologic/Psychiatric: no motor/sensory deficits, alert, normal mood/affect Skin: normal color, warm/dry Lymphatic: no adenopathy Comments Displaced left femoral neck fracture Assessment/Plan Assessment/Plan Admission Diagnosis/Plan Displaced Closed Left Femoral Neck fracture Plan: Left Hip Tyrel-arthroplasty Risk, benefits, alternatives discussed with patient and daughter. Admission Status: Inpatient Order (span 2 midnights) Reason for Inpatient Admission: Hip Fracture Clinical Quality Measures DVT/VTE Risk/Contraindication: Risk Factor Score Per Nursin RFS Level Per Nursing on Admit: 4+=Very High URI VARMA MD Jul 03, 2018 19:56
[2018-07-03] MEDS ORDERED: morphine INJ 10 MG/ML 1ML (SYR OR VIAL) ONE (21:26)
[2018-07-03] MEDS ORDERED: LACTATED RINGERS 1,000 ML IV SCH (21:30)
--- NOTE | 2018-07-03 21:31 | Progress Note-Post Operative ---
Post-Operative Progess Note Surgeon (s)/Discharge Planner (s) Surgeon URI VARMA MD Discharge Planner: GRANT Quintanilla Pre-Operative Diagnosis Left Closed Femoral Neck Fracture Post-Operative Diagnosis Same Procedure & Operative Findings Date of Procedure 07/03/18 Procedure Performed/Findings Left Hip Tyrel-Arthroplasty Anesthesia Type GETA Estimated Blood Loss Estimated blood loss (mL): 250 Specimens/Packing Specimens Removed None URI VARMA MD Jul 03, 2018 21:31
[2018-07-03] MEDS ORDERED: PHENYLEPHRINE 100 MCG/ML 10 ML (ANESTHESIA) SYR ONE (21:40)
[2018-07-03] MEDS ORDERED: MEPERIDINE (DEMEROL) INJ 50 MG/ML IVP ONE (22:15)
[2018-07-03] MEDS ORDERED: ONDANSETRON 4 MG/2 ML (SDV) Z0FRAN IVP PRN (22:15)
[2018-07-03] MEDS ORDERED: morphine INJ 10 MG/ML 1ML (SYR OR VIAL) IVP ONE (22:15)
--- NOTE | 2018-07-03 22:27 | OPERATIVE REPORT ---
DATE OF SERVICE: PREOPERATIVE DIAGNOSIS: Left closed displaced femoral neck fracture. POSTOPERATIVE DIAGNOSIS: Left closed displaced femoral neck fracture. PROCEDURE PERFORMED: Left hip hemiarthroplasty for fracture. DATE AND TIME OF SURGERY: Please see anesthesia record. IMPLANTS USED: Synthes DePuy Tri-Lock femoral stem size 6, a 28 mm +1.5 head with a 48 mm bipolar cup. SURGEON: Uri Velásquez MD FOOD COURT TEAM MEMBER: RICARDO Quintanilla. ROLE OF SPORTS EQUIPMENT RACKER: Aid in retraction of the procedure, aid in implantation, instrumentation wound closure. ANESTHESIA: General endotracheal. ESTIMATED BLOOD LOSS: 250 mL. INTRAVENOUS FLUIDS: Please see anesthesia record. ANTIBIOTICS: Ancef. COMPLICATIONS: None. SPECIMENS: None. INDICATIONS FOR PROCEDURE: The patient is a 77-year-old female who fell at home today injuring her left hip, brought to the Emergency Department, noted to have displaced femoral neck fracture, cleared for surgery, ready for operative treatment. Risks, benefits, alternatives were discussed with the patient and the family elect to proceed. DESCRIPTION OF PROCEDURE: The patient was taken to the preoperative holding area and brought back to the operative suite. After adequate induction of general anesthesia, preoperative antibiotics, placed in lateral decubitus position on a pegboard. Sterile prep and drape to the left hip. Standard Guillory Martines anterolateral approach to the hip was carried out and once the femoral neck was delivered out of the wound. It was cut short using the femoral neck cutting guide. The femoral head was then retrieved from the acetabulum with a corkscrew. Acetabulum was inspected, cleansed. The femur was prepared and trial broaches were placed and a size 6 was most appropriate fit. During the reduction maneuver, a crack was heard and femoral shaft was split. A Synthes 1.7 mm cable with crimp was utilized to fixate the femoral shaft and then a size 6 stem was impacted in position, 1.5 mm head with a 48 mm outside diameter bipolar ball, reduced satisfactorily was closed in layers and the patient was transferred to the recovery room in stable condition having tolerated the procedure well. Job ID: [id number] DocumentID: [id number] Dictated Date: 07/03/2018 21:30:12 Forest Resource Specialist Date: 07/03/2018 22:27:04 Dictated By: URI VELÁSQUEZ MD [facility]
[2018-07-03 23:00] VITALS: BP 112/53
[2018-07-04] VITALS (7 sets, daily range): BP systolic 49–135; BP diastolic 44–67
--- NOTE | 2018-07-04 05:15 | NUR ---
DR VARMA NOTIFIED OF PT STATUS, PAIN AND LOWER BP, ORDERS RECEIVED
[2018-07-04] MEDS: HYDROcodone/APAP 5 MG/325 MG (LORTAB) TAB PO PRN ×4 (05:31→21:25)
[2018-07-04] MEDS: NS IV 500 ML 500 ML IV SCH ×4 (05:32→09:41)
[2018-07-04] MEDS: D5 1/2 NS 1000 ML IV SOLUTION 1,000 ML IV SCH ×2 (05:32→13:41)
--- NOTE | 2018-07-04 07:03 | Diagnostic Imaging Report ---
INDICATION: Postop left hip arthroplasty. COMPARISON: None. FINDINGS: 2 views left hip demonstrate well-seated left hip arthroplasty. There is no unexpected radiopaque foreign body. No fracture seen. IMPRESSION: Well-seated left hip arthroplasty. Dictated by: Dictated on workstation # [id number]
--- NOTE | 2018-07-04 07:09 | Progress Note (SOAP) ---
Subjective Date Seen by a Provider: Jul 04, 2018 Time Seen by a Provider: 07:08 Subjective/Events-last exam Pain ok, no complaints. Objective Exam Vital Signs Date Time Temp Pulse Resp B/P (MAP) Pulse Ox O2 Delivery O2 Flow Rate FiO2 07/04/18 04:30 97.8 100 20 94/44 (61) 100 Nasal Cannula 3.00 07/03/18 23:00 96.8 93 20 112/53 (72) 99 Nasal Cannula 3.00 07/03/18 17:57 99.0 87 18 151/62 95 Room Air 07/03/18 17:32 83 20 179/78 (111) 95 Room Air 07/03/18 17:31 Room Air 07/03/18 14:10 93 22 147/83 (104) 97 Room Air I & O 07/04/18 07:00 Intake Total 1020 ml Output Total 2245 ml Balance -1225 ml Capillary Refill : Less Than 3 SecondsLess Than 3 Seconds General Appearance: No Apparent Distress Respiratory: No Accessory Muscle Use, No Respiratory Distress Cardiovascular: Regular Rate, Rhythm Gastrointestinal: non tender, soft Extremity: Normal Capillary Refill, No Calf Tenderness, Swelling Neurologic/Psychiatric: Alert, Oriented x3, No Motor/Sensory Deficits Other comments Post Op Hip xrays, satisfactory Results Lab Laboratory Tests 07/03/18 16:30: White Blood Count 17.0H, Red Blood Count 6.49H, Hemoglobin 11.8, Hematocrit 38, Mean Corpuscular Volume 59L, Mean Corpuscular Hemoglobin 18L, Mean Corpuscular Hemoglobin Concent 31L, Red Cell Distribution Width 25.4H, Platelet Count 485H, Mean Platelet Volume 10.0, Neutrophils (%) (Auto) 82H, Lymphocytes (%) (Auto) 8L , Monocytes (%) (Auto) 9, Eosinophils (%) (Auto) 1, Basophils (%) (Auto) 1, Neutrophils # (Auto) 14.0H, Lymphocytes # (Auto) 1.3, Monocytes # (Auto) 1.5H, Eosinophils # (Auto) 0.1, Basophils # (Auto) 0.1, Neutrophils % (Manual) 89, Lymphocytes % (Manual) 5, Monocytes % (Manual) 5, Eosinophils % (Manual) 0, Basophils % (Manual) 1, Band Neutrophils 0, Polychromasia SLIGHT, Hypochromasia MARKED, Anisocytosis MARKED, Microcytosis MARKED, Spherocytes SLIGHT, Target Cells SLIGHT, Prothrombin Time 12.9, INR Comment 1.0, Activated Partial Thromboplast Time 29, Sodium Level 135, Potassium Level 4.3, Chloride Level 102 , Carbon Dioxide Level 22, Anion Gap 11, Blood Urea Nitrogen 14, Creatinine 0.72 , Estimat Glomerular Filtration Rate > 60, BUN/Creatinine Ratio 19, Glucose Level 171H, Calcium Level 9.6, Corrected Calcium 9.4, Total Bilirubin 0.6, Aspartate Amino Transf (AST/SGOT) 20, Alanine Aminotransferase (ALT/SGPT) 17, Alkaline Phosphatase 95, Total Protein 7.4, Albumin 4.3 07/03/18 16:50: Urine Color YELLOW, Urine Clarity SLIGHTLY CLOUDY, Urine pH 6.5, Urine Specific Cushing 1.010L, Urine Protein 1+H, Urine Glucose (UA) 4+H, Urine Ketones NEGATIVE, Urine Nitrite NEGATIVE, Urine Bilirubin NEGATIVE, Urine Urobilinogen NORMAL, Urine Leukocyte Esterase 3+H, Urine RBC (Auto) 2+H, Urine RBC 2-5H, Urine WBC 10-25H, Urine Squamous Epithelial Cells 5-10, Urine Crystals NONE, Urine Bacteria NEGATIVE, Urine Casts NONE, Urine Mucus NEGATIVE, Urine Culture Indicated YES 07/03/18 22:12: Glucometer 176H Assessment/Plan Assessment/Plan Assess & Plan/Chief Complaint Displaced Closed Left Femoral Neck fracture S/P Left Hip Tyrel-arthroplasty Plan: Up with PT, mobilize today, pain control Clinical Quality Measures DVT/VTE Risk/Contraindication: Risk Factor Score Per Nursin RFS Level Per Nursing on Admit: 4+=Very High URI VARMA MD Jul 04, 2018 07:09
--- NOTE | 2018-07-04 08:08 | NUR ---
CALLED DR OSULLIVAN WITH CONSULT
[2018-07-04 08:23] LABS: BASOPHILS % (AUTO) 0 % (0-10); EOSINOPHILS % (AUTO) 0 % (0-10); HEMATOCRIT 29 % (35-52); HEMOGLOBIN 8.4 G/DL (11.5-16.0); LYMPHOCYTES # (AUTO) 1.2 X 10^3 (1.0-4.0); LYMPHOCYTES % (AUTO) 9 % (12-44); MEAN CORPUSCULAR HEMOGLOBIN 18 PG (25-34); MEAN CORPUSCULAR HGB CONC 29 G/DL (32-36); MEAN CORPUSCULAR VOLUME 62 FL (80-99); MEAN PLATELET VOLUME 9.9 FL (7.4-10.4); MONOCYTES # (AUTO) 1.6 X 10^3 (0.0-1.0); MONOCYTES % (AUTO) 11 % (0-12); NEUTROPHILS # (AUTO) 11.2 X 10^3 (1.8-7.8); NEUTROPHILS % (AUTO) 80 % (42-75); PLATELET COUNT 405 10^3/uL (130-400); RED CELL DISTRIBUTION WIDTH 23.9 % (10.0-14.5)
[2018-07-04 08:39] LABS: ALANINE AMINOTRANSFERASE 14 U/L (0-55); ALBUMIN 3.4 GM/DL (3.2-4.5); ALKALINE PHOSPHATASE 69 U/L (40-136); BILIRUBIN,TOTAL 0.5 MG/DL (0.1-1.0); BUN/CREATININE RATIO 20; CALCIUM 8.4 MG/DL (8.5-10.1); CARBON DIOXIDE 21 MMOL/L (21-32); CHLORIDE 106 MMOL/L (98-107); CREATININE SERUM 0.84 MG/DL (0.60-1.30); GFR ESTIMATED > 60; GLUCOSE 265 MG/DL (70-105); POTASSIUM 4.6 MMOL/L (3.6-5.0); SODIUM 138 MMOL/L (135-145); TOTAL PROTEIN 5.7 GM/DL (6.4-8.2)
[2018-07-04] MEDS ORDERED: IPRA3AMP31 NEB (08:46)
[2018-07-04] MEDS ORDERED: MAGN500C15 PO (08:46)
[2018-07-04] MEDS ORDERED: INSU100V16 SC (08:46)
[2018-07-04] MEDS ORDERED: LORA0.5T PO ×2 (08:46)
[2018-07-04] MEDS ORDERED: IPRA4AER INH (08:46)
[2018-07-04] MEDS ORDERED: CRAN500T2 PO (08:46)
[2018-07-04] MEDS ORDERED: GLUC1KIT2 INJ (08:49)
--- NOTE | 2018-07-04 08:49 | NUR ---
PATIENT HAS A WORKER WHO SETS UP HER MEDICATIONS IN A PILL BUCKET OPERATOR FOR HER. THE WORKER ADMINISTERS THE MEDS IN THE MORNINGS AND HER SON ADMINISTERS THEM IN THE EVENING JUST HOW THEY ARE SET UP FOR HER. THEY HAVE A DETAILED LIST OF HOW THOSE MEDS ARE SET UP AND I COMPARED IT WITH THE EXT MED HX. OTC MEDS INCLUDE: MELATONIN HS PROBIOTIC DAILY MAG 500MG DAILY CRANBERRY 1500 HS ASPIRIN 81MG DAILY
--- NOTE | 2018-07-04 09:02 | Consultation-Cardiology ---
HPI-Cardiology Cardiology Consultation: Date of Consultation 07/04/18 Time Seen by a Provider: 08:45 Date of Admission 07-03-18 Attending Physician Allie Urias MD Admitting Physician Go Lan DO Consulting Physician Aleks Saha MD HPI: Chief Complaint: CAD Ms. Vinson is a 77 year old female admitted to 432. Daughter is at the bedside. Pt resides at home with her son. She states pt has urinary incontinence with frequent falls recently at home. Pt is drowsy, awakens easily , but unable to obtain any information from patient other than her stating she is "mad" and has "pain". Daughter states on Jun 16, 2018 she underwent peripheral stent placement to the left leg by Dr. Ames at [facility]. She states she has been ambulating better at home, but has had several falls d/ t poor balance. She states she began to c/o left leg pain and was brought to the ED. She believes she may have fallen either on Wednesday evening or Wednesday during the day and not told her son she fell. She has not reported any CP. She has chronic mild to mod exertional dyspnea. No report of syncope. Review of Systems-Cardiology Review of Systems Constitutional: No chills, No fever Eyes: No vision change Ears/Nose/Throat: No epistaxis, No recent hearing loss Respiratory: As described under HPI Cardiovascular: As described under HPI Gastrointestinal: No diarrhea, No nausea, No vomiting Genitourinary: incontinence Musculoskeletal: As describe under HPI Skin: No rash, No ulcerations Psychiatric/Neurological: No syncope Hematologic: no symptoms reported Other comments ROS obtained with assistance of family All Other Systems Reviewed Negative Unless Noted: Yes IAV-Rfusln-Vckuee Hx Patient Social History Alcohol Use: Denies Use Recreational Drug Use: No Smoking Status: Current Everyday Smoker Former smoker/When Quit: Jan 17, 2015 Type Used: Cigarettes (half a pack a day) 2nd Hand Smoke Exposure: No Recent Foreign Travel: No Recent Infectious Disease Expo: No Hospitalization with Isolation: Denies Immunizations Up To Date Tetanus Booster (TDap): Unknown Date of Pneumonia Vaccine: Jan 08, 2014 Date of Influenza Vaccine: Mar 10, 2018 Past Medical History PMH As described under Assessment. Family Medical History Family History: Alzheimer's disease (dad) Arthritis (mom) Asthma (sister) Completed stroke (mom) Diabetes mellitus (mom) Fibrocystic disease of breast (sister) Hypercholesterolemia (mom) Hypertension (mom) Myocardial infarction (mom) Neoplasm Parkinson's disease Severe allergy (sister) No Family History of: AIDS Abdominal aortic aneurysm Delbert's disease Alcoholism Aphasia Cancer of mouth Cardiovascular disease Cataracts Colon cancer Congenital disease Congenital heart disease Coronary thrombosis Cystic fibrosis Deafness or hearing loss Dementia Drug abuse Dysphasia Gastroenteritis Glaucoma Headache disorder Infertility Kidney disease Not obtainable due to adoption Osteoporosis (breast cancer) Prostate cancer Psychosocial problem Respiratory disorder Seizure disorder Thyroid disease Visual disorder Allergies and Home Medications Allergies Coded Allergies: No Known Drug Allergies (Unverified , 01/29/17) Home Medications Albuterol/Ipratropium 4 Gm Aero, 1 PUFF INH 0800,1130,1500,1830 PRN for IF UNABLE TO USE DUONEB, (Reported) Aspirin 81 Mg Tablet.dr, 81 MG PO DAILY, (Reported) Atorvastatin Calcium 80 Mg Tablet, 80 MG PO DAILY, (Reported) Canagliflozin 100 Mg Tablet, 100 MG PO DAILY, (Reported) Clopidogrel Bisulfate 75 Mg Tablet, 75 MG PO DAILY, (Reported) Cranberry Extract 500 Mg Tablet, 1,500 MG PO HS, (Reported) Cyanocobalamin 1,000 Mcg/Ml Inj, 1,000 MCG IJ 23RD OF MONTH, (Reported) Diclofenac Sodium 100 Gm Gel..gram., TOP BID PRN for ARTHRITIS PAIN, (Reported) APPLY TO RIGHT HAND Donepezil HCl 10 Mg Tablet, 10 MG PO HS, (Reported) Ergocalciferol (Vitamin D2) 50,000 Unit Capsule, 50,000 UNITS PO Mo, (Reported) Esomeprazole Magnesium 40 Mg Cap, 40 MG PO DAILY, (Reported) Glucagon,Human Recombinant 1 Mg Vial, 1 MG INJ UD PRN for BLOOD SUGAR, (Reported ) Insulin Aspart 100 Unit/1 Ml Susp, SC AC, (Reported) BELOW 100 = 0 UNITS 100-130 = 2 UNITS 131-160 = 3 UNITS 161-190 = 4 UNITS 191 OR HIGHER = 5 UNITS Insulin Glargine,Hum.rec.anlog 100 Unit/1 Ml Vial, 23 UNIT SQ HS, (Reported) Ipratropium/Albuterol Sulfate 3 Ml Ampul.neb, 3 ML NEB 0800,1400,2000, (Reported ) L.acidoph & Paracasei,B.lactis 1 Each Capsule, 1 CAP PO DAILY, (Reported) Lorazepam 0.5 Mg Tablet, 0.25 MG PO DAILY, (Reported) TAKES 1/2 (0.5MG) TABLET Lorazepam 0.5 Mg Tablet, 1 MG PO HS, (Reported) TAKES 2 (0.5MG) TABLETS Magnesium Oxide 500 Mg Capsule, 500 MG PO DAILY, (Reported) Melatonin 10 Mg Tablet.er, 10 MG PO HS, (Reported) Pioglitazone HCl 15 Mg Tablet, 15 MG PO DAILY, (Reported) Venlafaxine HCl 150 Mg Cap.er.24h, 150 MG PO DAILY, (Reported) Patient Home Medication List Home Medication List Reviewed: Yes Physical Exam-Cardiology Physical Exam Vital Signs/I&O 07/04/18 07/04/18 07/04/18 07/05/18 20:15 20:50 23:40 03:57 Temp 99.2 99.1 97.1 Pulse 86 94 89 Resp 20 16 16 B/P (MAP) 119/67 (84) 103/50 (67) 137/63 (87) Pulse Ox 96 97 97 94 O2 Delivery Room Air Room Air Room Air Room Air 07/05/18 00:00 Intake Total 2280 ml Output Total 1300 ml Balance 980 ml Capillary Refill : Less Than 3 SecondsLess Than 3 Seconds Constitutional: other (Drowsy, awakens easily, oriented to self) HEENT: hard of hearing Neck: carotid bruit, carotid pulses are 2 + bilaterally Respiratory: chest expansion is symmetric, chest is bilaterally symmetric, other (good air entry bilat) Cardiovascular: regular rate-rhythm; No JVD; S1 and S2 Gastrointestinal: soft, audible bowel sounds Rectal: deferred Extremities: no lower extremity edema bilateral Neurologic/Psychiatric: grossly intact Skin: No rash, No ulcerations Data Review Labs Laboratory Tests 07/04/18 08:10: White Blood Count 14.0H, Red Blood Count 4.67, Hemoglobin 8.4#L, Hematocrit 29L , Mean Corpuscular Volume 62L, Mean Corpuscular Hemoglobin 18L, Mean Corpuscular Hemoglobin Concent 29L, Red Cell Distribution Width 23.9H, Platelet Count 405H, Mean Platelet Volume 9.9, Neutrophils (%) (Auto) 80H, Lymphocytes (% ) (Auto) 9L, Monocytes (%) (Auto) 11, Eosinophils (%) (Auto) 0, Basophils (%) ( Auto) 0, Neutrophils # (Auto) 11.2H, Lymphocytes # (Auto) 1.2, Monocytes # (Auto ) 1.6H, Eosinophils # (Auto) 0.0, Basophils # (Auto) 0.0, Sodium Level 138, Potassium Level 4.6, Chloride Level 106, Carbon Dioxide Level 21, Anion Gap 11, Blood Urea Nitrogen 17, Creatinine 0.84, Estimat Glomerular Filtration Rate > 60 , BUN/Creatinine Ratio 20, Glucose Level 265H, Calcium Level 8.4L, Corrected Calcium 8.9, Total Bilirubin 0.5, Aspartate Amino Transf (AST/SGOT) 25, Alanine Aminotransferase (ALT/SGPT) 14, Alkaline Phosphatase 69, Total Protein 5.7L, Albumin 3.4 07/04/18 11:36: Glucometer 323H 07/04/18 15:52: Glucometer 442*H 07/04/18 20:18: Glucometer 400*H 07/05/18 05:20: White Blood Count 12.1H, Red Blood Count 4.34L, Hemoglobin 7.7L, Hematocrit 27L , Mean Corpuscular Volume 61L, Mean Corpuscular Hemoglobin 18L, Mean Corpuscular Hemoglobin Concent 29L, Red Cell Distribution Width 23.5H, Platelet Count 333, Mean Platelet Volume 10.3, Neutrophils (%) (Auto) 63, Lymphocytes (% ) (Auto) 18, Monocytes (%) (Auto) 17H, Eosinophils (%) (Auto) 2, Basophils (%) ( Auto) 1, Neutrophils # (Auto) 7.6, Lymphocytes # (Auto) 2.2, Monocytes # (Auto) 2.0H, Eosinophils # (Auto) 0.2, Basophils # (Auto) 0.1, Sodium Level 135, Potassium Level 4.2, Chloride Level 104, Carbon Dioxide Level 22, Anion Gap 9, Blood Urea Nitrogen 14, Creatinine 0.71, Estimat Glomerular Filtration Rate > 60 , BUN/Creatinine Ratio 20, Glucose Level 163H, Calcium Level 9.1 Microbiology 07/03/18 Urine Culture - Final, Complete Mixed Bacterial Kelly With Strep agalactiae Group B See Comments A/P-Cardiology Assessment/Admission Diagnosis Non-syncopal fall on 07-03-18 resulting in L hip fracture S/P Left hip hemiarthroplasty for fracture on 07-03-[address] Ipsen Post op anemia - management per medical/surgical services Chronic exertional shortness of breath CAD with history of coronary stenting: Multilink 3x18 mid RCA, and Multilink 2.5x13 and 2.5x18 in CX in 2001. MPI of Mar 22, 2018 is suggestive of basal inferior infarction with a small amt of yogesh-infarct ischemia. Basal inferior hypokinesis. 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 Vinson and R internal carotid stenting by Dr Junior and Dr Reed on 04/27/17. This is being followed by Dr Junior/Dr Reed (according to the patient) CT angio of the neck of 02/24/17: 70% ALEXSANDRA stenosis just distal to previous endarterectomy site, slightly worse compared to 12/30/15. Stable 70% prox L subclavian stenosis and mild to mod mid L vertebral a stenosis - this is being followed by Dr. Ames of [facility] Mild dementia Continuing tobacco - cessation advised PAD with foot ulcers, believed to be ischemia, for which she is following with Dr Ames - daughter reports recent peripheral stent placement by Dr. Ames on 06-16-18 - exact details unknown Clinical Quality Measures DVT/VTE Risk/Contraindication: Risk Factor Score Per Nursin RFS Level Per Nursing on Admit: 4+=Very High ANAYELI DICKENS Jul 04, 2018 09:02
[2018-07-04] MEDS ORDERED: ASPIRIN 81 MG CHEW (CHILDREN'S ASA) PO ONE (09:45)
--- NOTE | 2018-07-04 11:01 | Anesthesia-General Post-Op ---
General Patient Condition Mental Status/LOC: Same as Preop Cardiovascular: Satisfactory Nausea/Vomiting: Absent Respiratory: Satisfactory Pain: Controlled Complications: Absent Post Op Complications Complications None Follow Up Care/Instructions Patient Instructions None needed. Anesthesia/Patient Condition Patient Condition Patient is doing well, no complaints, stable vital signs, no apparent adverse anesthesia problems. No complications reported per nursing. SHERMAN JARVIS CRNA Jul 04, 2018 11:01
[2018-07-04] MEDS ORDERED: RT-ALBUTEROL/IPRATROPIUM 3 ML (DUONEB) VIAL IH PRN (12:15)
[2018-07-04] MEDS ORDERED: inSUlin ASPART (NovoLOG) 1 UNIT/0.01 ML (CHARGE PER UNIT) ONE (12:35)
[2018-07-04] MEDS: inSUlin ASPART (NovoLOG) 1 UNIT/0.01 ML (CHARGE PER UNIT) SC SCH ×3 (12:45→20:55)
--- NOTE | 2018-07-04 12:49 | NUR ---
CALLED DR VARMA. OKAY TO START ASPIRIN AND PLAVIX TODAY
--- NOTE | 2018-07-04 12:59 | History & Physical-Hospitalist ---
History of Present Illness HPI/Chief Complaint Pt is a 77yoCF with a PMH of CAD, PAD, IDDMII, HLD, and dementia who presented to the ER with complaints of hip pain. She gives very limited history due to dementia and family at bedside provides history. She had a peripheral angiogram done on 06/16 at [facility] and family is unsure if she was ballooned or stented. She has had some leg pain since then but they thought it was due to the groin access. They know that she fell on 06/24 but she was ambulating fine after than. She lives with her son who had ot be gone for 2 funerals this weekend and they believe she may have fallen then too because her pain increased at that time. She presented to the ER yetserday for worsening pain and was found to have a subcapital left hip fracture. She underwent operative repair last night. Today she complains of hip pain still and constipation. Otherwise she has no complaints. Family's only concern is resumption of her insulin. Source: patient Date Seen 07/04/18 Time Seen by a Provider: 12:49 Attending Physician Allie Urias MD PCP Go Lan DO Referring Physician Date of Admission Jul 03, 2018 at 17:00 Home Medications & Allergies Home Medications Reviewed patient Home Medication Reconciliation performed by pharmacy medication reconciliations security installation sales technician and/or nursing. Patients Allergies have been reviewed. Allergies Allergies Coded Allergies No Known Drug Allergies (Unverified01/29/17) Past Zjvjabi-Anyain-Pvswwa Hx Past Med/Social Hx: Reviewed Nursing Past Med/Soc Hx Patient Social History Alcohol Use: Denies Use Recreational Drug Use: No Smoking Status: Current Everyday Smoker Type Used: Cigarettes (half a pack a day) 2nd Hand Smoke Exposure: No Recent Foreign Travel: No Contact w/other who traveled: No Recent Hopitalizations: No Recent Infectious Disease Expo: No Immunizations Up To Date Tetanus Booster (TDap): Unknown Pediatric: No Date of Pneumonia Vaccine: Jan 08, 2014 Date of Influenza Vaccine: Mar 10, 2018 Seasonal Allergies Seasonal Allergies: No Past Medical History Surgeries: Appendectomy, Coronary Stent, Eye Surgery, 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, Joint Replacement (Right MAXIMINO), Orthopedic Cardiac: Coronary Artery Disease, Heart Attack, High Cholesterol Neurological: Dementia, TIA 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: No Sexually Transmitted Disease: No HIV/AIDS: No Female 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 Disorders: Denies 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 Gastrointestinal: Colitis, Gastroesophageal Reflux, Chronic Diarrhea Musculoskeletal: Osteoporosis, Arthritis, Chronic Back Pain Endocrine: Diabetes, Insulin dep Loss of Vision: Bilateral Hearing Impairment: Denies Psychosocial: Anxiety Skin/Integumentary: Recent Skin Changes History of Blood Disorders: No Adverse Reaction to Blood [place]: No (N/A) Family History Alzheimer's disease (dad) Arthritis (mom) Asthma (sister) Completed stroke (mom) Diabetes mellitus (mom) Fibrocystic disease of breast (sister) Hypercholesterolemia (mom) Hypertension (mom) Myocardial infarction (mom) Neoplasm Parkinson's disease Severe allergy (sister) No Family History of: AIDS Abdominal aortic aneurysm Reva's disease Alcoholism Aphasia Cancer of mouth Cardiovascular disease Cataracts Colon cancer Congenital disease Congenital heart disease Coronary thrombosis Cystic fibrosis Deafness or hearing loss Dementia Drug abuse Dysphasia Gastroenteritis Glaucoma Headache disorder Infertility Kidney disease Not obtainable due to adoption Osteoporosis (breast cancer) Prostate cancer Psychosocial problem Respiratory disorder Seizure disorder Thyroid disease Visual disorder No Pertinent Family Hx Review of Systems ROS-Unable to Obtain: dementia- very limited Constitutional: see HPI Gastrointestinal: constipation Musculoskeletal: joint pain Physical Exam Physical Exam Vital Signs Vital Signs - First Documented 07/03/18 07/03/18 14:10 17:57 Temp 99.0 Pulse 93 Resp 22 B/P (MAP) 147/83 (104) Pulse Ox 97 O2 Delivery Room Air Capillary Refill : Less Than 3 SecondsLess Than 3 Seconds Height, Weight, BMI Height: 5'7.00" Weight: 132lbs. 0.0oz. [id number]; 20.7 BMI Method:Stated General Appearance: Chronically ill, Mild Distress Eyes: Right Eye Normal Inspection, Right Eye PERRL HEENT: PERRL/EOMI, Moist Mucous Membranes; No Scleral Icterus (L), No Scleral Icterus (R) Neck: Full Range of Motion, Normal Inspection Respiratory: Lungs Clear, No Accessory Muscle Use, No Respiratory Distress Cardiovascular: Regular Rate, Rhythm, No Edema, No JVD, No Murmur Gastrointestinal: Normal Bowel Sounds, No Organomegaly, No Pulsatile Mass, Non Tender, Soft Extremity: No Calf Tenderness, No Pedal Edema, Other (healing ulcer on lateral aspect of left foot, absent nail on left great toe) Neurologic/Psychiatric: Alert, Disoriented Skin: Normal Color, Warm/Dry Results Results/Procedures Labs Laboratory Tests 2/24/19 16:30 07/04/18 08:10 Patient resulted labs reviewed. Imaging: Reviewed Imaging Report Assessment/Plan Admission Diagnosis left hip fracture Admission Status: Inpatient Order (span 2 midnights) Reason for Inpatient Admission: Operative repair, therapy Diagnosis/Problems Diagnosis/Problems (1) Subcapital fracture of left hip Status: Acute Assessment & Plan: s/p operative repair POD #1 Continue pain management Continue PT/OT Bowel Regimen IRU consult Qualifiers: Encounter type: initial encounter Fracture type: closed Qualified Codes: S72.012A - Unspecified intracapsular fracture of left femur, initial encounter for closed fracture (2) Type 2 diabetes mellitus Status: Acute Assessment & Plan: Resume home insulin Blood sugars high this AM Qualifiers: Diabetes mellitus terminal superintendent insulin use: with terminal superintendent use Diabetes mellitus complication status: with circulatory complication (3) Peripheral arterial disease Assessment & Plan: Per cardiology notes had stent placed on 06/16/18 for PAD Will need resumption of Plavix and ASA when ok with surgery Follows as an outpatient (4) Dementia Status: Acute Assessment & Plan: Unsure of baseline- family states she can recognize them but then denies that she has dementia when asked specifically Monitor for psychosis given high risk from surgery and pain medication Qualifiers: Dementia type: unspecified type Dementia behavioral disturbance: without behavioral disturbance Qualified Codes: F03.90 - Unspecified dementia without behavioral disturbance (5) CAD (coronary artery disease) Status: Chronic Qualifiers: Coronary Disease-Associated Artery/Lesion type: unspecified vessel or lesion type [place] vs. transplanted heart: [place] heart Associated angina: without angina Qualified Codes: I25.10 - Atherosclerotic heart disease of [place] coronary artery without angina pectoris Clinical Quality Measures DVT/VTE Risk/Contraindication: Risk Factor Score Per Nursin RFS Level Per Nursing on Admit: 4+=Very High BRENDA HERNANDEZ MD Jul 04, 2018 12:59
[2018-07-04] MEDS ORDERED: NON-FORMULARY MEDICATION 1 EA EA (Aspirin (Aspir 81) 81 MG) PO SCH (13:00)
[2018-07-04] MEDS ORDERED: ASPIRIN E.C. 81 MG (ECOTRIN) TAB PO SCH (13:00)
[2018-07-04] MEDS: ASPIRIN 81 MG CHEW (CHILDREN'S ASA) PO SCH (13:41)
[2018-07-04] MEDS: CLOPIDOGREL 75 MG (PLAVIX) TABLET PO SCH (13:41)
--- NOTE | 2018-07-04 14:00 | Consultation-Cardiology ---
HPI-Cardiology Cardiology Consultation: Date of Consultation 07/04/18 Time Seen by a Provider: 09:10 Date of Admission Attending Physician Allie Urias MD Admitting Physician Go Lan DO Consulting Physician JOAQUÍN OSULLIVAN MD, MA, FACP, FACC, FSCAI, CCDS HPI: Chief Complaint: Reason for consultation: CAD HPI: Ms. Vinson is a 77 year old female admitted to 432. Daughter is at the bedside. Pt resides at home with her son. She states pt has urinary incontinence with frequent falls recently at home. Pt is drowsy, awakens easily , but unable to obtain any information from patient other than her stating she is "mad" and has "pain". Daughter states on Jun 16, 2018 she underwent peripheral stent placement to the left leg by Dr. Ames at [facility]. She states she has been ambulating better at home, but has had several falls d/ t poor balance. She states she began to c/o left leg pain and was brought to the ED. She believes she may have fallen either on Wednesday evening or Wednesday during the day and not told her son she fell. She has not reported any CP. She has chronic mild to mod exertional dyspnea. No report of syncope. Review of Systems-Cardiology Review of Systems Constitutional: No chills, No fever Eyes: No vision change Ears/Nose/Throat: No epistaxis, No recent hearing loss Respiratory: As described under HPI Cardiovascular: As described under HPI Gastrointestinal: No diarrhea, No nausea, No vomiting Genitourinary: incontinence Musculoskeletal: As describe under HPI Skin: No rash, No ulcerations Psychiatric/Neurological: No syncope Hematologic: no symptoms reported All Other Systems Reviewed Negative Unless Noted: Yes RQR-Nulugs-Ptaqih Hx Patient Social History Alcohol Use: Denies Use Recreational Drug Use: No Smoking Status: Current Everyday Smoker Former smoker/When Quit: Jan 17, 2015 Type Used: Cigarettes (half a pack a day) 2nd Hand Smoke Exposure: No Recent Foreign Travel: No Recent Infectious Disease Expo: No Hospitalization with Isolation: Denies Immunizations Up To Date Tetanus Booster (TDap): Unknown Date of Pneumonia Vaccine: Jan 08, 2014 Date of Influenza Vaccine: Mar 10, 2018 Past Medical History PMH As described under Assessment. Family Medical History Family History: Alzheimer's disease (dad) Arthritis (mom) Asthma (sister) Completed stroke (mom) Diabetes mellitus (mom) Fibrocystic disease of breast (sister) Hypercholesterolemia (mom) Hypertension (mom) Myocardial infarction (mom) Neoplasm Parkinson's disease Severe allergy (sister) No Family History of: AIDS Abdominal aortic aneurysm Delbert's disease Alcoholism Aphasia Cancer of mouth Cardiovascular disease Cataracts Colon cancer Congenital disease Congenital heart disease Coronary thrombosis Cystic fibrosis Deafness or hearing loss Dementia Drug abuse Dysphasia Gastroenteritis Glaucoma Headache disorder Infertility Kidney disease Not obtainable due to adoption Osteoporosis (breast cancer) Prostate cancer Psychosocial problem Respiratory disorder Seizure disorder Thyroid disease Visual disorder Allergies and Home Medications Allergies Coded Allergies: No Known Drug Allergies (Unverified , 01/29/17) Home Medications Albuterol/Ipratropium 4 Gm Aero, 1 PUFF INH 0800,1130,1500,1830 PRN for IF UNABLE TO USE DUONEB, (Reported) Aspirin 81 Mg Tablet.dr, 81 MG PO DAILY, (Reported) Atorvastatin Calcium 80 Mg Tablet, 80 MG PO DAILY, (Reported) Canagliflozin 100 Mg Tablet, 100 MG PO DAILY, (Reported) Clopidogrel Bisulfate 75 Mg Tablet, 75 MG PO DAILY, (Reported) Cranberry Extract 500 Mg Tablet, 1,500 MG PO HS, (Reported) Cyanocobalamin 1,000 Mcg/Ml Inj, 1,000 MCG IJ 23RD OF MONTH, (Reported) Diclofenac Sodium 100 Gm Gel..gram., TOP BID PRN for ARTHRITIS PAIN, (Reported) APPLY TO RIGHT HAND Donepezil HCl 10 Mg Tablet, 10 MG PO HS, (Reported) Ergocalciferol (Vitamin D2) 50,000 Unit Capsule, 50,000 UNITS PO Mo, (Reported) Esomeprazole Magnesium 40 Mg Cap, 40 MG PO DAILY, (Reported) Glucagon,Human Recombinant 1 Mg Vial, 1 MG INJ UD PRN for BLOOD SUGAR, (Reported ) Insulin Aspart 100 Unit/1 Ml Susp, SC AC, (Reported) BELOW 100 = 0 UNITS 100-130 = 2 UNITS 131-160 = 3 UNITS 161-190 = 4 UNITS 191 OR HIGHER = 5 UNITS Insulin Glargine,Hum.rec.anlog 100 Unit/1 Ml Vial, 23 UNIT SQ HS, (Reported) Ipratropium/Albuterol Sulfate 3 Ml Ampul.neb, 3 ML NEB 0800,1400,2000, (Reported ) L.acidoph & Paracasei,B.lactis 1 Each Capsule, 1 CAP PO DAILY, (Reported) Lorazepam 0.5 Mg Tablet, 0.25 MG PO DAILY, (Reported) TAKES 1/2 (0.5MG) TABLET Lorazepam 0.5 Mg Tablet, 1 MG PO HS, (Reported) TAKES 2 (0.5MG) TABLETS Magnesium Oxide 500 Mg Capsule, 500 MG PO DAILY, (Reported) Melatonin 10 Mg Tablet.er, 10 MG PO HS, (Reported) Pioglitazone HCl 15 Mg Tablet, 15 MG PO DAILY, (Reported) Venlafaxine HCl 150 Mg Cap.er.24h, 150 MG PO DAILY, (Reported) Patient Home Medication List Home Medication List Reviewed: Yes Physical Exam-Cardiology Physical Exam Vital Signs/I&O 07/04/18 07/04/18 07/04/18 07/04/18 04:30 08:00 08:00 12:00 Temp 97.8 98.0 97.8 Pulse 100 103 96 Resp 20 18 18 B/P (MAP) 94/44 (61) 135/62 (86) 106/49 (68) Pulse Ox 100 93 93 95 O2 Delivery Nasal Cannula Nasal Cannula Room Air Nasal Cannula O2 Flow Rate 3.00 3.00 3.00 07/04/18 00:00 Intake Total 1020 ml Output Total 2045 ml Balance -1025 ml Capillary Refill : Less Than 3 SecondsLess Than 3 Seconds Constitutional: other (Drowsy, awakens easily, oriented to self) HEENT: hard of hearing Neck: carotid bruit, carotid pulses are 2 + bilaterally Respiratory: chest expansion is symmetric, chest is bilaterally symmetric, other (good air entry bilat) Cardiovascular: regular rate-rhythm; No JVD; S1 and S2 Gastrointestinal: soft, audible bowel sounds Rectal: deferred Extremities: no lower extremity edema bilateral Neurologic/Psychiatric: grossly intact Skin: No rash, No ulcerations Data Review Labs Laboratory Tests 07/03/18 16:30: White Blood Count 17.0H, Red Blood Count 6.49H, Hemoglobin 11.8, Hematocrit 38, Mean Corpuscular Volume 59L, Mean Corpuscular Hemoglobin 18L, Mean Corpuscular Hemoglobin Concent 31L, Red Cell Distribution Width 25.4H, Platelet Count 485H, Mean Platelet Volume 10.0, Neutrophils (%) (Auto) 82H, Lymphocytes (%) (Auto) 8L , Monocytes (%) (Auto) 9, Eosinophils (%) (Auto) 1, Basophils (%) (Auto) 1, Neutrophils # (Auto) 14.0H, Lymphocytes # (Auto) 1.3, Monocytes # (Auto) 1.5H, Eosinophils # (Auto) 0.1, Basophils # (Auto) 0.1, Neutrophils % (Manual) 89, Lymphocytes % (Manual) 5, Monocytes % (Manual) 5, Eosinophils % (Manual) 0, Basophils % (Manual) 1, Band Neutrophils 0, Polychromasia SLIGHT, Hypochromasia MARKED, Anisocytosis MARKED, Microcytosis MARKED, Spherocytes SLIGHT, Target Cells SLIGHT, Prothrombin Time 12.9, INR Comment 1.0, Activated Partial Thromboplast Time 29, Sodium Level 135, Potassium Level 4.3, Chloride Level 102 , Carbon Dioxide Level 22, Anion Gap 11, Blood Urea Nitrogen 14, Creatinine 0.72 , Estimat Glomerular Filtration Rate > 60, BUN/Creatinine Ratio 19, Glucose Level 171H, Calcium Level 9.6, Corrected Calcium 9.4, Total Bilirubin 0.6, Aspartate Amino Transf (AST/SGOT) 20, Alanine Aminotransferase (ALT/SGPT) 17, Alkaline Phosphatase 95, Total Protein 7.4, Albumin 4.3 07/03/18 16:50: Urine Color YELLOW, Urine Clarity SLIGHTLY CLOUDY, Urine pH 6.5, Urine Specific Mchenry 1.010L, Urine Protein 1+H, Urine Glucose (UA) 4+H, Urine Ketones NEGATIVE, Urine Nitrite NEGATIVE, Urine Bilirubin NEGATIVE, Urine Urobilinogen NORMAL, Urine Leukocyte Esterase 3+H, Urine RBC (Auto) 2+H, Urine RBC 2-5H, Urine WBC 10-25H, Urine Squamous Epithelial Cells 5-10, Urine Crystals NONE, Urine Bacteria NEGATIVE, Urine Casts NONE, Urine Mucus NEGATIVE, Urine Culture Indicated YES 07/03/18 22:12: Glucometer 176H 07/04/18 07:55: Glucometer 288H 07/04/18 08:10: White Blood Count 14.0H, Red Blood Count 4.67, Hemoglobin 8.4#L, Hematocrit 29L , Mean Corpuscular Volume 62L, Mean Corpuscular Hemoglobin 18L, Mean Corpuscular Hemoglobin Concent 29L, Red Cell Distribution Width 23.9H, Platelet Count 405H, Mean Platelet Volume 9.9, Neutrophils (%) (Auto) 80H, Lymphocytes (% ) (Auto) 9L, Monocytes (%) (Auto) 11, Eosinophils (%) (Auto) 0, Basophils (%) ( Auto) 0, Neutrophils # (Auto) 11.2H, Lymphocytes # (Auto) 1.2, Monocytes # (Auto ) 1.6H, Eosinophils # (Auto) 0.0, Basophils # (Auto) 0.0, Sodium Level 138, Potassium Level 4.6, Chloride Level 106, Carbon Dioxide Level 21, Anion Gap 11, Blood Urea Nitrogen 17, Creatinine 0.84, Estimat Glomerular Filtration Rate > 60 , BUN/Creatinine Ratio 20, Glucose Level 265H, Calcium Level 8.4L, Corrected Calcium 8.9, Total Bilirubin 0.5, Aspartate Amino Transf (AST/SGOT) 25, Alanine Aminotransferase (ALT/SGPT) 14, Alkaline Phosphatase 69, Total Protein 5.7L, Albumin 3.4 07/04/18 11:36: Glucometer 323H A/P-Cardiology Assessment/Admission Diagnosis Non-syncopal fall on 07-03-18 resulting in L hip fracture S/P Left hip hemiarthroplasty for fracture on 07-03-[address] Velásquez Post op anemia - management per medical/surgical services Chronic exertional shortness of breath CAD with history of coronary stenting: Multilink 3x18 mid RCA, and Multilink 2.5x13 and 2.5x18 in CX in 2001. MPI of Mar 22, 2018 is suggestive of basal inferior infarction with a small amt of yogesh-infarct ischemia. Basal inferior hypokinesis. 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 Vinson and R internal carotid stenting by Dr Junior and Dr Reed on 04/27/17. This is being followed by Dr Junior/Dr Reed (according to the patient) CT angio of the neck of 02/24/17: 70% ALEXSANDRA stenosis just distal to previous endarterectomy site, slightly worse compared to 12/30/15. Stable 70% prox L subclavian stenosis and mild to mod mid L vertebral a stenosis - this is being followed by Dr. Ames of [facility] Mild dementia Continuing tobacco - cessation advised PAD with foot ulcers, believed to be ischemia, for which she is following with Dr Ames - daughter reports recent peripheral stent placement by Dr. Ames on 06-16-18 - exact details unknown Discussion and Recomendations * She suffers from multiple CV and other comorbidities. Management is complex. * Continue previous CV regimen * Monitor labs closely * I spoke with her, but she does not seem to understand all issues * I spoke with her daughter and answered CV-related questions Clinical Quality Measures DVT/VTE Risk/Contraindication: Risk Factor Score Per Nursin RFS Level Per Nursing on Admit: 4+=Very High JOAQUÍN OSULLIVAN MD FACP FAC CCDS Jul 04, 2018 14:00
--- NOTE | 2018-07-04 15:01 | NUR ---
Inpatient rehab evaluation Received order to evaluate patient for admission to the inpatient rehab unit. Dr. Wilks to order PT and OT evaluations. Will continue to follow. Thank you for the referral.
--- NOTE | 2018-07-04 15:52 | Physical Therapy Evaluation ---
PT Evaluation-General Medical Diagnosis Admission Date Jul 03, 2018 at 17:00 Medical Diagnosis: left subcapitol hip fracture Onset Date: Jul 03, 2018 Therapy Diagnosis Therapy Diagnosis: severe debility/weakness Height/Weight Height (Feet): 5 Height (Inches): 7.00 Weight (Pounds): 132 Weight (Ounces): 0.0 Precautions Precautions/Isolations: Fall Prevention, Standard Precautions Weight Bear Status Right Lower Extremity: Right Weight Bearing/Tolerated Left Lower Extremity: Left Weight Bearing/Tolerated Referral Physician: Efe Reason for Referral: Evaluation/Treatment Medical History Pertinent Medical History: Arthritis, CAD, DM, Dementia, GERD, MA, Smoking Additional Medical History 3 wks ago underwent surgery for left LE blockage Current History EMS secondary to 2 falls at home and unable to weight bear left LE. Reviewed History: Yes Social History Home: Single Level Current Living Status: Other Family Prior/Core [facility] Prior Level of Function Therapy Code Descriptions/Definitions Functional [place] Measure: 0=Not Assessed/NA 4=Minimal Assistance 1=Total Assistance 5=Supervision or Setup 2=Maximal Assistance 6=Modified [place] 3=Moderate Assistance 7=Complete [place] Therapy Quality Codes: 6 Independent with activity with or without an assistive device 5 Patient requires set up or clean up by helper. Patient completes activity by themselves 4 Supervision or touching assist (CGA). [place] provide cues , steadying assist 3 The helper provides less than half the effort to complete the activity 2 The helper provides more than half the effort to complete the activity 1 Dependent. The helper does all the effort to complete an activity 7 Patient refused to complete or attempt activity 9 The patient did not perform the activity before the current illness or injury 88 Not attempted due to Medical conditions or safety concerns Functional Abilities and Goals: Independent: Patient completed the activities by him/herself, with or without an assistive device, with no assistance from a helper. Needed Some Help: Patient needed partial assistance from another person to complete activities. Dependent: A helper completed the activities for the patient. Unknown: Not Applicable: Bed Mobility: 5 Transfers (B,C,W/C) (FIM): 5 Gait: 1 Indoor Mobility (Ambulation): Needed Some Help Stairs: Needed Some Help Prior Devices Use: Walker (10'-15' per family) PT Evaluation-Current Subjective Patient is in bed and family present. Family agrees to PT. Patient is reluctant due to left LE pain. Pain Numeric Pain Scale: 7 Location: Left Location Body Site: Hip Pain Description: Acute Comment: FLACC Objective Patient Orientation: Confused Problem Solving: Poor Attachments: Watson Catheter, IV ROM/Strength ROM Lower Extremities bilateral LE WFL Strength Lower Extremities right LE 3-/5 grossly/left LE 2-/5 grossly Integumentary/Posture Integumentary refer to nursing notes Bladder Incontinence: Watson Cath Posture slightly kyphotic Neuromuscular (Tone, Coordination, Reflexes) severely diminished coordination Sensory Vision: Functional Hearing: Impaired Sensation Right Lower Extremit: Impaired Sensation Left Lower Extremity: Impaired Transfers Therapy Code Descriptions/Definitions Functional [place] Measure: 0=Not Assessed/NA 4=Minimal Assistance 1=Total Assistance 5=Supervision or Setup 2=Maximal Assistance 6=Modified [place] 3=Moderate Assistance 7=Complete [place] Transfers (B, C, W/C) (FIM): 1 Scootin Rollin Supine to/from Sit: 1 Sit to/from Stand: 1 bed t/f WC(FIM only if WC use): 1 Gait Mode of Locomotion: Both Anticipated Mode of Locomotion: Both Balance Sitting Static: Normal Sitting Dynamic: Normal Standing Static: Poor Standing Dynamic: Poor Assessment/Needs 77 y.o. female, will benefit from skilled PT to address functional strength and mobility. Patient is currently unable to weight bear left LE or stand erect. She is dependent with all mobility. From a PT standpoint, patient will require extended care facility due to dementia and physical ability. Rehab Potential: Fair PT Support Staff Goals Skilled Nursing Goals PT Skilled Nursing Goals Time Frame: Jul 16, 2018 Transfers (B,C,W/C) (FIM): 4 Gait (FIM): 1 Gait distance (FIM): 1=up to 49 ft Distance: 10' Gait Level of Assist: 3 Gait Assistive Device: FWW PT Plan Problem List Problem List: Activity Tolerance, Functional Strength, Safety, Balance, Gait, Transfer, Bed Mobility Treatment/Plan Treatment Plan: Continue Plan of Care Treatment Plan: Bed Mobility, Education, Functional Activity Corrine, Functional Strength, Safety, Therapeutic Exercise, Transfers Treatment Duration: Jul 16, 2018 Frequency: 11 times per week Estimated Hrs Per Day: .5 hour per day Patient and/or Family Agrees t: Yes Discharge Recommendations Therapy D/C Recommendations: Home w/ Family Support, Intermediate Placement, Prison (TCU/[facility]) Time/GCodes Time In: 1512 Time Out: 1535 Total Billed Treatment Time: 23 Total Billed Treatment 1 visit EVMod 23 min VIVIANE MATT PT Jul 04, 2018 15:52
--- NOTE | 2018-07-04 15:57 | NUR ---
TALKED TO DR HERNANDEZ REGARDING ACCUCHECK OF 442. PT IS CURRENTLY EATING PANCAKES. GIVE HER THE HIGHEST DOSE ON THE SLIDING SCALE.
--- NOTE | 2018-07-04 17:14 | Diagnostic Imaging Report ---
INDICATION: Recent hip replacement. COMPARISON: 07/03/2018. FINDINGS: Frontal and lateral views of the chest demonstrate normal heart size and pulmonary vascularity. The lungs are clear. There are no signs of infiltrate, pleural effusions or pneumothoraces. The visualized osseous structures show no acute abnormalities. Note is made of calcified aortic atherosclerosis. IMPRESSION: 1. No acute process. No signs of infiltrates, effusions or pneumothoraces. Dictated by: Dictated on workstation # [id number]
[2018-07-04] MEDS: LORazepam 1 MG (ATIVAN) TAB PO SCH (20:55)
[2018-07-04] MEDS: MELATONIN 3 MG TABLET PO SCH (20:55)
[2018-07-04] MEDS: DONEPEZIL 10 MG (ARICEPT) TAB PO SCH (20:55)
[2018-07-04] MEDS: inSUlin DETERMIR 1 UNIT/0.01 ML (LEVEMIR) CHARGE PER UNIT SQ SCH (20:55)
[2018-07-05] VITALS (8 sets, daily range): BP systolic 133–167; BP diastolic 56–67
[2018-07-05] MEDS: HYDROcodone/APAP 5 MG/325 MG (LORTAB) TAB PO PRN ×5 (02:06→21:36)
[2018-07-05] MEDS: D5 1/2 NS 1000 ML IV SOLUTION 1,000 ML IV SCH (02:06)
[2018-07-05] MEDS: VENlafaxine XR 75 MG (EFFEXOR XR) CAP PO SCH (06:01)
[2018-07-05 06:07] LABS: BASOPHILS # (AUTO) 0.1 10^3/uL (0.0-0.1); BASOPHILS % (AUTO) 1 % (0-10); EOSINOPHILS # (AUTO) 0.2 10^3/uL (0.0-0.3); EOSINOPHILS % (AUTO) 2 % (0-10); HEMATOCRIT 27 % (35-52); HEMOGLOBIN 7.7 G/DL (11.5-16.0); LYMPHOCYTES # (AUTO) 2.2 X 10^3 (1.0-4.0); LYMPHOCYTES % (AUTO) 18 % (12-44); MEAN CORPUSCULAR HEMOGLOBIN 18 PG (25-34); MEAN CORPUSCULAR HGB CONC 29 G/DL (32-36); MEAN CORPUSCULAR VOLUME 61 FL (80-99); MEAN PLATELET VOLUME 10.3 FL (7.4-10.4); MONOCYTES % (AUTO) 17 % (0-12); NEUTROPHILS # (AUTO) 7.6 X 10^3 (1.8-7.8); NEUTROPHILS % (AUTO) 63 % (42-75); PLATELET COUNT 333 10^3/uL (130-400); RED CELL DISTRIBUTION WIDTH 23.5 % (10.0-14.5); WHITE BLOOD COUNT 12.1 10^3/uL (4.3-11.0)
[2018-07-05 06:27] LABS: BUN/CREATININE RATIO 20; CALCIUM 9.1 MG/DL (8.5-10.1); CARBON DIOXIDE 22 MMOL/L (21-32); CHLORIDE 104 MMOL/L (98-107); CREATININE SERUM 0.71 MG/DL (0.60-1.30); GFR ESTIMATED > 60; GLUCOSE 163 MG/DL (70-105); POTASSIUM 4.2 MMOL/L (3.6-5.0); SODIUM 135 MMOL/L (135-145)
[2018-07-05] MEDS: inSUlin ASPART (NovoLOG) 1 UNIT/0.01 ML (CHARGE PER UNIT) SC SCH ×4 (06:29→21:35)
--- NOTE | 2018-07-05 06:40 | Progress Note (SOAP) ---
Subjective Time Seen by a Provider: 06:36 Subjective/Events-last exam Pt states that she is sore today, but suffers from dementia and history is not real reliable. Family members don't remember her being up much yesterday. She is resting comfortably this morning. Objective Exam Vital Signs Date Time Temp Pulse Resp B/P (MAP) Pulse Ox O2 Delivery O2 Flow Rate FiO2 07/05/18 03:57 97.1 89 16 137/63 (87) 94 Room Air 07/04/18 23:40 99.1 94 16 103/50 (67) 97 Room Air 07/04/18 20:50 97 Room Air 07/04/18 20:15 99.2 86 20 119/67 (84) 96 Room Air 07/04/18 16:03 97.4 95 18 112/49 (70) 94 Room Air 07/04/18 12:00 97.8 96 18 106/49 (68) 95 Nasal Cannula 3.00 07/04/18 08:00 93 Room Air 07/04/18 08:00 98.0 103 18 135/62 (86) 93 Nasal Cannula 3.00 I & O 07/05/18 07:00 Intake Total 3530 ml Output Total 2150 ml Balance 1380 ml Capillary Refill : Less Than 3 SecondsLess Than 3 Seconds General Appearance: No Apparent Distress, WD/WN Respiratory: No Respiratory Distress Extremity: No Calf Tenderness Neurologic/Psychiatric: No Motor/Sensory Deficits Results Lab Laboratory Tests 07/04/18 07:55: Glucometer 288H 07/04/18 08:10: White Blood Count 14.0H, Red Blood Count 4.67, Hemoglobin 8.4#L, Hematocrit 29L , Mean Corpuscular Volume 62L, Mean Corpuscular Hemoglobin 18L, Mean Corpuscular Hemoglobin Concent 29L, Red Cell Distribution Width 23.9H, Platelet Count 405H, Mean Platelet Volume 9.9, Neutrophils (%) (Auto) 80H, Lymphocytes (% ) (Auto) 9L, Monocytes (%) (Auto) 11, Eosinophils (%) (Auto) 0, Basophils (%) ( Auto) 0, Neutrophils # (Auto) 11.2H, Lymphocytes # (Auto) 1.2, Monocytes # (Auto ) 1.6H, Eosinophils # (Auto) 0.0, Basophils # (Auto) 0.0, Sodium Level 138, Potassium Level 4.6, Chloride Level 106, Carbon Dioxide Level 21, Anion Gap 11, Blood Urea Nitrogen 17, Creatinine 0.84, Estimat Glomerular Filtration Rate > 60 , BUN/Creatinine Ratio 20, Glucose Level 265H, Calcium Level 8.4L, Corrected Calcium 8.9, Total Bilirubin 0.5, Aspartate Amino Transf (AST/SGOT) 25, Alanine Aminotransferase (ALT/SGPT) 14, Alkaline Phosphatase 69, Total Protein 5.7L, Albumin 3.4 07/04/18 11:36: Glucometer 323H 07/04/18 15:52: Glucometer 442*H 07/04/18 20:18: Glucometer 400*H 07/05/18 05:20: White Blood Count 12.1H, Red Blood Count 4.34L, Hemoglobin 7.7L, Hematocrit 27L , Mean Corpuscular Volume 61L, Mean Corpuscular Hemoglobin 18L, Mean Corpuscular Hemoglobin Concent 29L, Red Cell Distribution Width 23.5H, Platelet Count 333, Mean Platelet Volume 10.3, Neutrophils (%) (Auto) 63, Lymphocytes (% ) (Auto) 18, Monocytes (%) (Auto) 17H, Eosinophils (%) (Auto) 2, Basophils (%) ( Auto) 1, Neutrophils # (Auto) 7.6, Lymphocytes # (Auto) 2.2, Monocytes # (Auto) 2.0H, Eosinophils # (Auto) 0.2, Basophils # (Auto) 0.1, Sodium Level 135, Potassium Level 4.2, Chloride Level 104, Carbon Dioxide Level 22, Anion Gap 9, Blood Urea Nitrogen 14, Creatinine 0.71, Estimat Glomerular Filtration Rate > 60 , BUN/Creatinine Ratio 20, Glucose Level 163H, Calcium Level 9.1 Microbiology 07/03/18 Urine Culture - Final, Complete Mixed Bacterial Kelly With Strep agalactiae Group B See Comments Assessment/Plan Assessment/Plan Assess & Plan/Chief Complaint Left closed, displaced femoral neck fracture. S/P Left Hip Tyrel-Arthroplasty Anemia Continue PT and placement Consider RBC tranfusion Stable from Ortho standpoint, okay to transfer to rehab when ready. Clinical Quality Measures DVT/VTE Risk/Contraindication: Risk Factor Score Per Nursin RFS Level Per Nursing on Admit: 4+=Very High TAYA PHILIP Jul 05, 2018 06:40
--- NOTE | 2018-07-05 08:43 | NUR ---
Inpatient rehab evaluation Discussed with PT. Patient is dependent for all mobility at this time and is unable to bear weight on her LLE. Patient is not able to tolerate 3 hours of therapy at this time. Will notify physician. Thank you for the referral.
--- NOTE | 2018-07-05 08:45 | Progress Note-Hospitalist ---
Subjective HPI/CC On Admission Date Seen by Provider: Jul 05, 2018 Time Seen by Provider: 08:41 Pt is a 77yoCF with a PMH of CAD, PAD, IDDMII, HLD, and dementia who presented to the ER with complaints of hip pain. She gives very limited history due to dementia and family at bedside provides history. She had a peripheral angiogram done on 06/16 at [facility] and family is unsure if she was ballooned or stented. She has had some leg pain since then but they thought it was due to the groin access. They know that she fell on 06/24 but she was ambulating fine after than. She lives with her son who had ot be gone for 2 funerals this weekend and they believe she may have fallen then too because her pain increased at that time. She presented to the ER yetserday for worsening pain and was found to have a subcapital left hip fracture. She underwent operative repair last night. Today she complains of hip pain still and constipation. Otherwise she has no complaints. Family's only concern is resumption of her insulin. Subjective/Events-last exam Pt up working with therapy. Appears less agitated than yesterday. transferred from bed to chair with therapy. Objective Exam Vital Signs Vital Signs Date Time Temp Pulse Resp B/P (MAP) Pulse Ox O2 Delivery O2 Flow Rate FiO2 07/05/18 13:45 98.5 89 18 147/67 95 Room Air 07/04/18 12:00 3.00 Capillary Refill : Less Than 3 SecondsLess Than 3 Seconds General Appearance: No Apparent Distress, WD/WN HEENT: No Scleral Icterus (L), No Scleral Icterus (R) Respiratory: Lungs Clear, No Respiratory Distress Cardiovascular: Regular Rate, Rhythm, No Murmur Gastrointestinal: Normal Bowel Sounds, No Pulsatile Mass, Non Tender, Soft Extremity: No Calf Tenderness, No Pedal Edema Neurologic/Psychiatric: Alert, Disoriented Skin: Normal Color, Warm/Dry Results/Procedures Lab Laboratory Tests 07/05/18 05:20 Patient resulted labs reviewed. Imaging: Reviewed Imaging Report Assessment/Plan Assessment and Plan Assess & Plan/Chief Complaint Left hip fracture Diagnosis/Problems Diagnosis/Problems (1) Subcapital fracture of left hip Status: Acute Assessment & Plan: s/p operative repair POD #2 Continue pain management Continue PT/OT Bowel Regimen Will need SNF on DC, SW consulted, appreciate assistance Family prefers [facility] Qualifiers: Encounter type: initial encounter Fracture type: closed Qualified Codes: S72.012A - Unspecified intracapsular fracture of left femur, initial encounter for closed fracture (2) Type 2 diabetes mellitus Status: Acute Assessment & Plan: Resume home insulin BS improved today Qualifiers: Diabetes mellitus half-way insulin use: with long term care administrator use Diabetes mellitus complication status: with circulatory complication Diabetes mellitus complication detail: with peripheral angiopathy without gangrene Qualified Codes: E11.51 - Type 2 diabetes mellitus with diabetic peripheral angiopathy without gangrene; 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 (3) Peripheral arterial disease Assessment & Plan: Per cardiology notes had stent placed on 06/16/18 for PAD Continue Plavix and ASA Follows as an outpatient (4) Dementia Status: Acute Assessment & Plan: Unsure of baseline- family states she can recognize them but then denies that she has dementia when asked specifically Monitor for psychosis given high risk from surgery and pain medication Qualifiers: Dementia type: unspecified type Dementia behavioral disturbance: without behavioral disturbance Qualified Codes: F03.90 - Unspecified dementia without behavioral disturbance (5) CAD (coronary artery disease) Status: Chronic Assessment & Plan: Cardiology consulted, appreciate recs Qualifiers: Coronary Disease-Associated Artery/Lesion type: unspecified vessel or lesion type [place] vs. transplanted heart: [place] heart Associated angina: without angina Qualified Codes: I25.10 - Atherosclerotic heart disease of [place] coronary artery without angina pectoris Clinical Quality Measures DVT/VTE Risk/Contraindication: Risk Factor Score Per Nursin RFS Level Per Nursing on Admit: 4+=Very High BRENDA HERNANDEZ MD Jul 05, 2018 08:45
--- NOTE | 2018-07-05 08:52 | Progress Note-Cardiology ---
Cardiology SOAP Progress Note Subjective: More alert today. C/O left leg pain. Objective: I&O/Vital Signs 07/04/18 07/05/18 07/05/18 23:40 03:57 08:59 Temp 99.1 97.1 97.8 Pulse 94 89 83 Resp 16 16 16 B/P (MAP) 103/50 (67) 137/63 (87) 133/56 (81) Pulse Ox 97 94 93 O2 Delivery Room Air Room Air Room Air 07/05/18 00:00 Intake Total 2280 ml Output Total 1300 ml Balance 980 ml Weight (Pounds): 132 Weight (Ounces): 0.0 Weight (Calculated Kilograms): [id number] Constitutional: AAO x 3 Respiratory: chest expansion is symmetric, chest is bilaterally symmetric, other (good air entry bilat) Cardiovascular: regular rate-rhythm; No JVD; S1 and S2 Gastrointestional: soft, audible bowel sounds Extremities: no lower extremity edema bilateral Neurologic/Psychiatric: grossly intact Skin: pallor; No rash, No ulcerations Results/Procedures: Labs Laboratory Tests 07/04/18 11:36: Glucometer 323H 07/04/18 15:52: Glucometer 442*H 07/04/18 20:18: Glucometer 400*H 07/05/18 05:20: White Blood Count 12.1H, Red Blood Count 4.34L, Hemoglobin 7.7L, Hematocrit 27L , Mean Corpuscular Volume 61L, Mean Corpuscular Hemoglobin 18L, Mean Corpuscular Hemoglobin Concent 29L, Red Cell Distribution Width 23.5H, Platelet Count 333, Mean Platelet Volume 10.3, Neutrophils (%) (Auto) 63, Lymphocytes (% ) (Auto) 18, Monocytes (%) (Auto) 17H, Eosinophils (%) (Auto) 2, Basophils (%) ( Auto) 1, Neutrophils # (Auto) 7.6, Lymphocytes # (Auto) 2.2, Monocytes # (Auto) 2.0H, Eosinophils # (Auto) 0.2, Basophils # (Auto) 0.1, Sodium Level 135, Potassium Level 4.2, Chloride Level 104, Carbon Dioxide Level 22, Anion Gap 9, Blood Urea Nitrogen 14, Creatinine 0.71, Estimat Glomerular Filtration Rate > 60 , BUN/Creatinine Ratio 20, Glucose Level 163H, Calcium Level 9.1 Microbiology 07/03/18 MRSA Screen - Final, Complete MRSA not isolated 07/03/18 Urine Culture - Final, Complete Mixed Bacterial Kelly With Strep agalactiae Group B See Comments A/P: Assessment: Non-syncopal fall on 07-03-18 resulting in L hip fracture S/P Left hip hemiarthroplasty for fracture on 07-03-[address] Velásquez Post op anemia - management per medical/surgical services Chronic exertional shortness of breath CAD with history of coronary stenting: Multilink 3x18 mid RCA, and Multilink 2.5x13 and 2.5x18 in CX in 2001. MPI of Mar 22, 2018 is suggestive of basal inferior infarction with a small amt of yogesh-infarct ischemia. Basal inferior hypokinesis. 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 Vinson and R internal carotid stenting by Dr Junior and Dr Reed on 04/27/17. This is being followed by Dr Junior/Dr Reed (according to the patient) CT angio of the neck of 02/24/17: 70% ALEXSANDRA stenosis just distal to previous endarterectomy site, slightly worse compared to 12/30/15. Stable 70% prox L subclavian stenosis and mild to mod mid L vertebral a stenosis - this is being followed by Dr. Ames of [facility] Dementia Continuing tobacco - cessation advised PAD with foot ulcers, believed to be ischemia, for which she is following with Dr Ames - daughter reports recent peripheral stent placement by Dr. Ames on 06-16-18 - exact details unknown Plan: * She suffers from multiple CV and other comorbidities. Management is complex. * Continue previous CV regimen * Monitor labs closely * Post op anemia - receiving transfusion - management per medical/surgical services Physician Assessment Physician Assessment Does not report any cp or palp or syncope or shortness of breath Contused Lungs: fair to good bilat air entry Cor: reg Ext: no c/c/e A&R * As documented in our note above that I updated (italics) and as noted below * We recommend blood transfusion * Monitor labs BAIMA,ANAYELI L HOUSEFELLOW Jul 05, 2018 08:52 JOAQUÍN OSULLIVAN MD FACP [facility] Jul 05, 2018 11:22
[2018-07-05] MEDS ORDERED: CLOPIDOGREL 75 MG (PLAVIX) TABLET PO SCH (09:00)
[2018-07-05] MEDS ORDERED: ASPIRIN 81 MG CHEW (CHILDREN'S ASA) PO SCH (09:00)
[2018-07-05] MEDS ORDERED: NON-FORMULARY MEDICATION 1 EA EA (Aspirin (Aspir 81) 81 MG) PO SCH (09:00)
--- NOTE | 2018-07-05 09:04 | NUR ---
CM/SS spoke with the patient regarding discharge planning. Patient has family that works at [employer] so would like that facility as first choice. Referral packet sent to [employer].
[2018-07-05] MEDS: ATORVASTATIN 80 MG (LIPITOR) TABLET PO SCH (09:24)
[2018-07-05] MEDS: LORazepam 0.5 MG (ATIVAN) TABLET PO SCH (09:24)
[2018-07-05] MEDS: ASPIRIN 81 MG CHEW (CHILDREN'S ASA) PO SCH (09:24)
[2018-07-05] MEDS: CLOPIDOGREL 75 MG (PLAVIX) TABLET PO SCH (09:24)
[2018-07-05] MEDS: PANTOPRAZOLE 40 MG (PROTONIX) TAB PO SCH (09:26)
--- NOTE | 2018-07-05 09:46 | Physical Therapy Daily Note ---
PT Daily Note-Current Subjective Patient continues to be confused, however lethargic due to medication. Noted IR left LE in supine, sit and stand. Dr. Wilks made aware. Pain Numeric Pain Scale: 5-Moderate Pain Location: Left Location Body Site: Hip Pain Description: Acute Comment: FLACC Mental Status Patient Orientation: Confused Transfers Therapy Code Descriptions/Definitions Functional [place] Measure: 0=Not Assessed/NA 4=Minimal Assistance 1=Total Assistance 5=Supervision or Setup 2=Maximal Assistance 6=Modified [place] 3=Moderate Assistance 7=Complete [place] Therapy Quality Codes: 6 Independent with activity with or without an assistive device 5 Patient requires set up or clean up by helper. Patient completes activity by themselves 4 Supervision or touching assist (CGA). [place] provide cues , steadying assist 3 The helper provides less than half the effort to complete the activity 2 The helper provides more than half the effort to complete the activity 1 Dependent. The helper does all the effort to complete an activity 7 Patient refused to complete or attempt activity 9 The patient did not perform the activity before the current illness or injury 88 Not attempted due to Medical conditions or safety concerns Transfers (B, C, W/C) (FIM): 1 Scootin Supine to/from Sit: 1 Sit to/from Stand: 1 Bed to/from Chair: 1 patient does not weight bear left LE and required dependent assist with all mobility Weight Bearing Right Lower Extremity: Right Weight Bearing/Tolerated Left Lower Extremity: Left Weight Bearing/Tolerated Exercises Supine Ex: Ankle pumps, Heel Slides Supine Reps: 15 (AAROM bilaterally) Seated Therapy Exercises: Ankle pumps, Long arc quads, Hip flexion Seated Reps: 15 (AAROM bilaterally) Assessment Patient continues to require dependent assist with all mobility and does not weight bear left LE with display of IR in all positions. Dr. Wilks is aware. PT Care Home Goals Care Home Goals PT Mud Analysis Well Logging Operator Goals Time Frame: Jul 16, 2018 Transfers (B,C,W/C) (FIM): 4 Gait (FIM): 1 Gait distance (FIM): 1=up to 49 ft Distance: 10' Gait Level of Assist: 3 Gait Assistive Device: FWW PT Plan Treatment/Plan Treatment Plan: Continue Plan of Care Treatment Plan: Bed Mobility, Education, Functional Activity Corrine, Functional Strength, Safety, Therapeutic Exercise, Transfers Treatment Duration: Jul 16, 2018 Frequency: 11 times per week Estimated Hrs Per Day: .5 hour per day Patient and/or Family Agrees t: Yes Time/GCodes Time In: 826 Time Out: 840 Total Billed Treatment Time: 14 Total Billed Treatment 1 visit FA 14 min VIVIANE MATT PT Jul 05, 2018 09:46
--- NOTE | 2018-07-05 10:48 | Occupational Therapy Eval ---
OT Evaluation-General/PLF Medical Diagnosis Admission Date Jul 03, 2018 at 17:00 Medical Diagnosis: left subcapitol hip fracture Onset Date: Jul 03, 2018 Therapy Diagnosis Therapy Diagnosis: decreased self care skills Height/Weight Height (Feet): 5 Height (Inches): 7.00 Weight (Pounds): 132 Weight (Ounces): 0.0 Precautions Precautions/Isolations: Fall Prevention, Standard Precautions Safety Interventions: Notify Family, Reorient-PRN Referral Physician: Efe Medical History Pertinent Medical History: Arthritis, CAD, DM, Dementia, GERD, CT, Smoking Additional Medical History kyphoplasty, coronary stent, right MAXIMINO, high cholesterol, TIA, colitis, osteoporosis, chronic back pain. Current History Pt had fall with left hip fracture. S/p hemiarthroplasty Social History Home: Single Level Current Living Status: Other Family (son) Entry Into Home: Stairs With Railing Steps Into Home: 2 ADL-Prior Level of Function Therapy Code Descriptions/Definitions Functional [place] Measure: 0=Not Assessed/NA 4=Minimal Assistance 1=Total Assistance 5=Supervision or Setup 2=Maximal Assistance 6=Modified [place] 3=Moderate Assistance 7=Complete [place] Therapy Quality Codes: 6 Independent with activity with or without an assistive device 5 Patient requires set up or clean up by helper. Patient completes activity by themselves 4 Supervision or touching assist (CGA). [place] provide cues , steadying assist 3 The helper provides less than half the effort to complete the activity 2 The helper provides more than half the effort to complete the activity 1 Dependent. The helper does all the effort to complete an activity 7 Patient refused to complete or attempt activity 9 The patient did not perform the activity before the current illness or injury 88 Not attempted due to Medical conditions or safety concerns Functional Abilities and Goals: Independent: Patient completed the activities by him/herself, with or without an assistive device, with no assistance from a helper. Needed Some Help: Patient needed partial assistance from another person to complete activities. Dependent: A helper completed the activities for the patient. Unknown: Not Applicable: ADL PLOF Comments Family states pt has been falling recently. Has a FWW, but doesn't always use. Pt has a home care worker for a few hours, 5 days/wk. Self Care: Needed Some Help Functional Cognition: Needed Some Help DME/Equipment: Bath Chair, Shower, Tall Toilet OT Current Status Subjective Pt sitting in chair. Reports pain in hip, but does not rate. Family states pt did not sleep well last nigh and has been tired this morning. Mental Status/Objective Patient Orientation: Person, Confused Attachments: Watson Catheter Current Glasses/Contacts: Yes (reading) Dentures/Partials: Yes Hand Dominance: Right Upper Extremity ROM Grossly WFL ADL-Treatment ADL-Current Pt sitting in chair. Participated in UE assessment. Family states pt was able to feed herself this morning after set up. Pt drinks from cup after set up. Pt falling asleep and requires frequent cues to attend during session. Pt requests to remain seated in chair. All needs met and family present after session. Therapy Code Descriptions/Definitions Functional [place] Measure: 0=Not Assessed/NA 4=Minimal Assistance 1=Total Assistance 5=Supervision or Setup 2=Maximal Assistance 6=Modified [place] 3=Moderate Assistance 7=Complete [place] Therapy Quality Codes: 6 Independent with activity with or without an assistive device 5 Patient requires set up or clean up by helper. Patient completes activity by themselves 4 Supervision or touching assist (CGA). [place] provide cues , steadying assist 3 The helper provides less than half the effort to complete the activity 2 The helper provides more than half the effort to complete the activity 1 Dependent. The helper does all the effort to complete an activity 7 Patient refused to complete or attempt activity 9 The patient did not perform the activity before the current illness or injury 88 Not attempted due to Medical conditions or safety concerns Eating (FIM): 5 Education OT Patient Education: Rehab process Teaching Recipient: Patient, Family Teaching Methods: Discussion OT Short Term Goals Short Term Goals 1=Demonstrate adherence to instructed precautions during ADL tasks. 2=Patient will verbalize/demonstrate understanding of assistive devices/ modifications for ADL. 3=Patient will improve strength/tolerance for activity to enable patient to perform ADL's. OT Rn Telemetry Goals Rn Telemetry Goals Time Frame: Jul 19, 2018 Eating (FIM): 6 Grooming(FIM): 5 Upper Body Dressing(FIM): 5 Lower Body Dressing(FIM): 3 Toileting(FIM): 4 Toilet/Commode Transfer(FIM): 4 Additional Goals: 1-Demonstrate ADL Tasks, 2-Verbalize Understanding, 3- ImproveStrength/Corrine 1=Demonstrate adherence to instructed precautions during ADL tasks. 2=Patient will verbalize/demonstrate understanding of assistive devices/ modifications for ADL. 3=Patient will improve strength/tolerance for activity to enable patient to perform ADL's. OT Education/Plan Problem List/Assessment Assessment: Decreased Activ Tolerance, Decreased Safety Aware, Decreased UE Strength, Dependent Transfers, Impaired I ADL's, Impaired Self-Care Skills Pt to benefit from skilled OT intervention for ADL training, transfers, strengthening, and safety education to increase level of independence and allow safe discharge plan. Discharge Recommendations Plan/Recommendations: Continue POC Treatment Plan/Plan of Care Treatment,Training & Education: Yes Patient would benefit from OT for education, treatment and training to promote independence in ADL's, mobility, safety and/or upper extremity function for ADL' s. Plan of Care: ADL Retraining, Functional Mobility, UE Funct Exercise/Act Treatment Duration: Jul 19, 2018 Frequency: 5 times per week Estimated Hrs Per Day: .25 hour per day Rehab Potential: Fair Time/GCodes Start Time: 09:56 Stop Time: 10:12 Total Time Billed (hr/min): 16 Billed Treatment Time 1 visit, FRANCIS(16minutes) JEET CABRERA OT Jul 05, 2018 10:48
--- NOTE | 2018-07-05 12:03 | Physical Therapy Daily Note ---
PT Daily Note-Current Subjective Family reports patient will receive blood on this date. Family agrees to PT. Pain Numeric Pain Scale: 10-Worst Possible Pain Location: Left Location Body Site: Hip Pain Description: Acute Comment: FLACC Mental Status Patient Orientation: Confused Transfers Therapy Code Descriptions/Definitions Functional [place] Measure: 0=Not Assessed/NA 4=Minimal Assistance 1=Total Assistance 5=Supervision or Setup 2=Maximal Assistance 6=Modified [place] 3=Moderate Assistance 7=Complete [place] Therapy Quality Codes: 6 Independent with activity with or without an assistive device 5 Patient requires set up or clean up by helper. Patient completes activity by themselves 4 Supervision or touching assist (CGA). [place] provide cues , steadying assist 3 The helper provides less than half the effort to complete the activity 2 The helper provides more than half the effort to complete the activity 1 Dependent. The helper does all the effort to complete an activity 7 Patient refused to complete or attempt activity 9 The patient did not perform the activity before the current illness or injury 88 Not attempted due to Medical conditions or safety concerns Transfers (B, C, W/C) (FIM): 2 Scootin Sit to/from Stand: 2 max assist x 2 with sit to stand to FWW and patient impulsively returned to sit with PT assist. Weight Bearing Right Lower Extremity: Right Weight Bearing/Tolerated Left Lower Extremity: Left Weight Bearing/Tolerated Exercises Supine Ex: Ankle pumps, Heel Slides, Straight leg raise (right LE only), Hip abd/add (right LE Only) Supine Reps: 15 (2 sets AAROM in recliner) Seated Therapy Exercises: Ankle pumps, Long arc quads Seated Reps: 15 (AAROM) Assessment Patient remains in recliner with needs met and bilateral LE elevated with pillow placement under bilateral LE's for comfort. PT Fci Goals Fci Goals PT Fci Goals Time Frame: Jul 16, 2018 Transfers (B,C,W/C) (FIM): 4 Gait (FIM): 1 Gait distance (FIM): 1=up to 49 ft Distance: 10' Gait Level of Assist: 3 Gait Assistive Device: FWW PT Plan Treatment/Plan Treatment Plan: Continue Plan of Care Treatment Plan: Bed Mobility, Education, Functional Activity Corrine, Functional Strength, Safety, Therapeutic Exercise, Transfers Treatment Duration: Jul 16, 2018 Frequency: 11 times per week Estimated Hrs Per Day: .5 hour per day Patient and/or Family Agrees t: Yes Time/GCodes Time In: 1128 Time Out: 1142 Total Billed Treatment Time: 14 Total Billed Treatment 1 visit EX 14 min VIVIANE MATT PT Jul 05, 2018 12:03
[2018-07-05] MEDS ORDERED: NS IV 500 ML 500 ML IV ONE (13:00)
--- NOTE | 2018-07-05 13:41 | NUR ---
CM/SS [facility] called and accepted the patient for Skilled on 07/06. They will not be able to transfer until later afternoon on 07/06.
[2018-07-05] MEDS: inSUlin DETERMIR 1 UNIT/0.01 ML (LEVEMIR) CHARGE PER UNIT SQ SCH (21:35)
[2018-07-05] MEDS: DONEPEZIL 10 MG (ARICEPT) TAB PO SCH (21:35)
[2018-07-05] MEDS: MELATONIN 3 MG TABLET PO SCH (21:35)
[2018-07-05] MEDS: LORazepam 1 MG (ATIVAN) TAB PO SCH (21:35)
[2018-07-06 00:25] VITALS: BP 172/70
[2018-07-06] MEDS: VENlafaxine XR 75 MG (EFFEXOR XR) CAP PO SCH (05:00)
[2018-07-06] MEDS: HYDROcodone/APAP 5 MG/325 MG (LORTAB) TAB PO PRN (05:01)
[2018-07-06] MEDS: inSUlin ASPART (NovoLOG) 1 UNIT/0.01 ML (CHARGE PER UNIT) SC SCH ×2 (05:29→11:51)
[2018-07-06 05:41] LABS: HEMOGLOBIN 9.6 G/DL (11.5-16.0); MEAN PLATELET VOLUME 10.4 FL (7.4-10.4); RED CELL DISTRIBUTION WIDTH 26.5 % (10.0-14.5); WHITE BLOOD COUNT 16.1 10^3/uL (4.3-11.0)
[2018-07-06 05:54] LABS: BUN/CREATININE RATIO 15; CALCIUM 9.4 MG/DL (8.5-10.1); CARBON DIOXIDE 23 MMOL/L (21-32); CHLORIDE 103 MMOL/L (98-107); CREATININE SERUM 0.55 MG/DL (0.60-1.30); GFR ESTIMATED > 60; GLUCOSE 66 MG/DL (70-105); POTASSIUM 4.1 MMOL/L (3.6-5.0); SODIUM 137 MMOL/L (135-145)
[2018-07-06 08:11] VITALS: BP 159/68
--- NOTE | 2018-07-06 08:52 | Progress Note-Cardiology ---
Cardiology SOAP Progress Note Subjective: Sitting up in bed this morning. Denies any c/o dyspnea, CP or palpitations. States she "feels ok". Daughter and son at the bedside. Objective: I&O/Vital Signs 07/06/18 07/06/18 00:25 08:11 Temp 98.8 98.5 Pulse 100 95 Resp 16 18 B/P (MAP) 172/70 (104) 159/68 (98) Pulse Ox 97 96 O2 Delivery Room Air Room Air 07/06/18 00:00 Intake Total 1380 ml Output Total 600 ml Balance 780 ml Weight (Pounds): 132 Weight (Ounces): 0.0 Weight (Calculated Kilograms): [id number] Constitutional: AAO x 3 Respiratory: chest expansion is symmetric, chest is bilaterally symmetric, other (good air entry bilat) Cardiovascular: regular rate-rhythm; No JVD; S1 and S2 Gastrointestional: soft, audible bowel sounds Extremities: no lower extremity edema bilateral Neurologic/Psychiatric: grossly intact Skin: No rash, No ulcerations Results/Procedures: Labs Laboratory Tests 07/05/18 11:34: Glucometer 201H 07/05/18 15:55: Glucometer 212H 07/05/18 20:00: Glucometer 181H 07/06/18 04:55: White Blood Count 16.1H, Red Blood Count 4.87, Hemoglobin 9.6#L, Hematocrit 32L , Mean Corpuscular Volume 65L, Mean Corpuscular Hemoglobin 20L, Mean Corpuscular Hemoglobin Concent 30L, Red Cell Distribution Width 26.5H, Platelet Count 330, Mean Platelet Volume 10.4, Sodium Level 137, Potassium Level 4.1, Chloride Level 103, Carbon Dioxide Level 23, Anion Gap 11, Blood Urea Nitrogen 8 , Creatinine 0.55L, Estimat Glomerular Filtration Rate > 60, BUN/Creatinine Ratio 15, Glucose Level 66L, Calcium Level 9.4 07/06/18 05:17: Glucometer 74 Microbiology 07/03/18 MRSA Screen - Final, Complete MRSA not isolated 07/03/18 Urine Culture - Final, Complete Mixed Bacterial Kelly With Strep agalactiae Group B See Comments A/P: Assessment: Non-syncopal fall on 07-03-18 resulting in L hip fracture S/P Left hip hemiarthroplasty for fracture on 07-03-[address] Velásquez Post op anemia - management per medical/surgical services - H/H improved following transfusion Chronic exertional shortness of breath CAD with history of coronary stenting: Multilink 3x18 mid RCA, and Multilink 2.5x13 and 2.5x18 in CX in 2001. MPI of Mar 22, 2018 is suggestive of basal inferior infarction with a small amt of yogesh-infarct ischemia. Basal inferior hypokinesis. 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 Vinson and R internal carotid stenting by Dr Junior and Dr Reed on 04/27/17. This is being followed by Dr Junior/Dr Reed (according to the patient) CT angio of the neck of 02/24/17: 70% ALEXSANDRA stenosis just distal to previous endarterectomy site, slightly worse compared to 12/30/15. Stable 70% prox L subclavian stenosis and mild to mod mid L vertebral a stenosis - this is being followed by Dr. Ames of [facility] Dementia Continuing tobacco - cessation advised PAD with foot ulcers, believed to be ischemia, for which she is following with Dr Ames - daughter reports recent peripheral stent placement by Dr. Ames on 06-16-18 - exact details unknown Plan: * She suffers from multiple CV and other comorbidities. Management is complex. * Continue current regimen * Monitor labs closely * Post op anemia - receiving transfusion - management per medical/surgical services - H/H improved * Plan is for d/c to SNF facility per medical services Physician Assessment Physician Assessment No cp or palp or syncope.Chronic exertional shortness. Gen malaise and weakness Confused Lungs: good air entry bilat, diminished at the bases Cor: reg Ext: no c/c/e A&R * As documented in our note above that I updated (italics) and as noted below * Monitor labs * Continue current regimen * Discussed with Dr Wilks this am ANAYELI DICKENS FISH BAIT PICKER Jul 06, 2018 08:52 JOAQUÍN OSULLIVAN MD FACP [facility] Jul 06, 2018 09:00
--- NOTE | 2018-07-06 08:59 | Discharge Inst-Skilled Nursing ---
Discharge Inst-Skilled NF Chief Complaint Pt is a 77yoCF with a PMH of CAD, PAD, IDDMII, HLD, and dementia who presented to the ER with complaints of hip pain was found to have a subcapital left hip fracture. She underwent operative repair 07/03/18. Consult/Follow Up/Orders Follow Up Appt.: With Dr Lan in [address] Velásquez in 2 weeks. Skilled NF Admit to: [facility] Certification (SNF) I certify that SNF services are required to be given on an inpatient basis because of the above named patient's need for long-term care on a continuing basis for the conditions(s) for which he/she was receiving inpatient hospital services prior to his/her transfer to the SNF. [facility] Facility Order: Nursing Services, Talent Acquisition Director-Evaluate & Treat, Physical Therapy-Evaluate & Treat, Speech Language-Evaluate & Treat Oxygen Delivery Method: Room Air Discharge Diet: ADA Diet, Cardiac Diet Daily Activity as Tolerated: Yes New & Resume Previous Orders Brenda Wilks Jul 06, 2018 08:57 BRENDA WILKS MD Jul 06, 2018 08:59
[2018-07-06] MEDS ORDERED: ACHD5005 PO (09:00)
[2018-07-06] MEDS: LORazepam 0.5 MG (ATIVAN) TABLET PO SCH (09:04)
[2018-07-06] MEDS: PANTOPRAZOLE 40 MG (PROTONIX) TAB PO SCH (09:04)
[2018-07-06] MEDS: ATORVASTATIN 80 MG (LIPITOR) TABLET PO SCH (09:04)
[2018-07-06] MEDS: CLOPIDOGREL 75 MG (PLAVIX) TABLET PO SCH (09:04)
[2018-07-06] MEDS: ASPIRIN 81 MG CHEW (CHILDREN'S ASA) PO SCH (09:04)
--- NOTE | 2018-07-06 09:05 | Discharge Summary-Hospitalist ---
Diagnosis/Chief Complaint Date of Admission Jul 03, 2018 at 17:00 Date of Discharge Discharge Date: Jul 06, 2018 Admission Diagnosis left hip fracture Discharge Diagnosis (1) Subcapital fracture of left hip Status: Acute Assessment & Plan: s/p operative repair POD #2 Continue pain management Continue PT/OT Bowel Regimen Will need SNF on DC, SW consulted, appreciate assistance Family prefers [facility] (2) Type 2 diabetes mellitus Status: Acute Assessment & Plan: Resume home insulin BS improved today (3) Peripheral arterial disease Assessment & Plan: Per cardiology notes had stent placed on 06/16/18 for PAD Continue Plavix and ASA Follows as an outpatient (4) Dementia Status: Acute Assessment & Plan: Unsure of baseline- family states she can recognize them but then denies that she has dementia when asked specifically Monitor for psychosis given high risk from surgery and pain medication (5) CAD (coronary artery disease) Status: Chronic Assessment & Plan: Cardiology consulted, appreciate recs Discharge Summary Procedures/Consulations Dr Velásquez- Ortho Dr Saha- Cardiology Discharge Physical Exam Allergies: Coded Allergies: No Known Drug Allergies (Unverified , 01/29/17) Vitals & I&Os Vital Signs Date Time Temp Pulse Resp B/P (MAP) Pulse Ox O2 Delivery O2 Flow Rate FiO2 07/06/18 13:50 95 18 159/68 96 Room Air 3.00 07/06/18 08:11 98.5 General Appearance: No Apparent Distress, WD/WN HEENT: No Scleral Icterus (L), No Scleral Icterus (R) Respiratory: Lungs Clear, No Respiratory Distress Cardiovascular: Regular Rate, Rhythm, No Murmur Gastrointestinal: Normal Bowel Sounds, No Pulsatile Mass, Non Tender, Soft Extremity: No Calf Tenderness, No Pedal Edema Skin: Normal Color, Warm/Dry Neurologic/Psychiatric: Alert, Disoriented Hospital Course Pt was admitted to the hospital for operative repair of a hip fracture following a fall at home. Her hospital course and surgery were uneventful. She worked with PT/OT but due to her dementia was unable to participate in intensive therapy. Family elected DC to a SNF for further rehab as she was unable to go to IRU. She was discharged to [facility] per their choice in stable condition. Labs (last 24 hrs) Microbiology 07/03/18 MRSA Screen - Final, Complete MRSA not isolated 07/03/18 Urine Culture - Final, Complete Mixed Bacterial Kelly With Strep agalactiae Group B See Comments Patient resulted labs reviewed. Pending Labs Imaging: Reviewed Imaging Report Discussion & Recommendations Discharge Planning: >30 minutes discharge planning Discharge Home Medications: Active Scripts Active Hydrocodone/Acetaminophen 5/325mg Tablet (Acetaminophen/Hydrocodone Bitart) 1 Tab Tab 1-2 Tab PO Q4H PRN Reported Glucagen (Glucagon,Human Recombinant) 1 Mg Vial 1 Mg INJ UD PRN Iprat-Albut 0.5-3(2.5) mg/3 ml (Ipratropium/Albuterol Sulfate) 3 Ml Ampul.neb 3 Ml NEB 0800,1400,2000 Combivent Respimat Inhal Plessis (Albuterol/Ipratropium) 4 Gm Aero 1 Puff INH 0800 ,1130,1500,1830 PRN Cranberry (Cranberry Extract) 500 Mg Tablet 1,500 Mg PO HS Lorazepam 0.5 Mg Tablet 1 Mg PO HS TAKES 2 (0.5MG) TABLETS Novolog (Insulin Aspart) 100 Unit/1 Ml Susp SC AC BELOW 100 = 0 UNITS 100-130 = 2 UNITS 131-160 = 3 UNITS 161-190 = 4 UNITS 191 OR HIGHER = 5 UNITS Magnesium (Magnesium Oxide) 500 Mg Capsule 500 Mg PO DAILY Lorazepam 0.5 Mg Tablet 0.25 Mg PO DAILY TAKES 1/2 (0.5MG) TABLET Voltaren (Diclofenac Sodium) 100 Gm Gel..gram. TOP BID PRN APPLY TO RIGHT HAND Donepezil HCl 10 Mg Tablet 10 Mg PO HS Atorvastatin Calcium 80 Mg Tablet 80 Mg PO DAILY Vitamin D2 (Ergocalciferol (Vitamin D2)) 50,000 Unit Capsule 50,000 Units PO MO Venlafaxine HCl ER (Venlafaxine HCl) 150 Mg Cap.er.24h 150 Mg PO DAILY Melatonin 10 Mg Tablet.er 10 Mg PO HS Probiotic (L.acidoph & Paracasei,B.lactis) 1 Each Capsule 1 Cap PO DAILY Cyanocobalamin Injection (Cyanocobalamin) 1,000 Mcg/Ml Inj 1,000 Mcg IJ OF Nexium (Esomeprazole Magnesium) 40 Mg Cap 40 Mg PO DAILY Aspir 81 (Aspirin) 81 Mg Tablet.dr 81 Mg PO DAILY Plavix (Clopidogrel Bisulfate) 75 Mg Tablet 75 Mg PO DAILY Pioglitazone HCl 15 Mg Tablet 15 Mg PO DAILY Lantus (Insulin Glargine,Hum.rec.anlog) 100 Unit/1 Ml Vial 23 Unit SQ HS Invokana (Canagliflozin) 100 Mg Tablet 100 Mg PO DAILY Instructions to patient/family Please see electronic discharge instructions given to patient. Clinical Quality Measures DVT/VTE Risk/Contraindication: Risk Factor Score Per Nursin RFS Level Per Nursing on Admit: 4+=Very High Problem Qualifiers (1) Subcapital fracture of left hip: Encounter type: initial encounter Fracture type: closed Qualified Codes: S72.012A - Unspecified intracapsular fracture of left femur, initial encounter for closed fracture (2) Type 2 diabetes mellitus: Diabetes mellitus senior care insulin use: with emt intermediate use Diabetes mellitus complication status: with circulatory complication Diabetes mellitus complication detail: with peripheral angiopathy without gangrene Qualified Codes: E11.51 - Type 2 diabetes mellitus with diabetic peripheral angiopathy without gangrene; Z79.4 - senior living (current) use of insulin (3) Dementia: Dementia type: unspecified type Dementia behavioral disturbance: without behavioral disturbance Qualified Codes: F03.90 - Unspecified dementia without behavioral disturbance (4) CAD (coronary artery disease): Coronary Disease-Associated Artery/Lesion type: unspecified vessel or lesion type [place] vs. transplanted heart: [place] heart Associated angina: without angina Qualified Codes: I25.10 - Atherosclerotic heart disease of [place] coronary artery without angina pectoris BRENDA HERNANDEZ MD Jul 06, 2018 09:04
--- NOTE | 2018-07-06 09:31 | NUR ---
CM/SS completed the CARE assessment with the patient and her daughter Symone (POA). All discharge information was sent to [facility]. CARE Assessment sent to [facility], [facility], and copy retained for patient chart.
--- NOTE | 2018-07-06 09:41 | NUR ---
CALLED REPORT TO FAUSTINO AT [facility]. SHE STATED THAT THEY WON'T BE ABLE TO COME PICK HER UP UNTIL 1300.
--- NOTE | 2018-07-06 10:13 | NUR ---
CM/SS followed up with [facility] on time of transfer. They needed to change it to 1300 as they had a hostel manager in the building. Patient, family and RNing were updated.
--- NOTE | 2018-07-06 11:00 | Physical Therapy Daily Note ---
PT Daily Note-Current Subjective Patient in recliner pre tx, agrees to PT, has pain in left hip but unable to rate pain. Appearance Patient in bed post tx with nurse call, phone, tray, all needs met. Mental Status Patient Orientation: Person, Confused Transfers Therapy Code Descriptions/Definitions Functional [place] Measure: 0=Not Assessed/NA 4=Minimal Assistance 1=Total Assistance 5=Supervision or Setup 2=Maximal Assistance 6=Modified [place] 3=Moderate Assistance 7=Complete [place] Therapy Quality Codes: 6 Independent with activity with or without an assistive device 5 Patient requires set up or clean up by helper. Patient completes activity by themselves 4 Supervision or touching assist (CGA). [place] provide cues , steadying assist 3 The helper provides less than half the effort to complete the activity 2 The helper provides more than half the effort to complete the activity 1 Dependent. The helper does all the effort to complete an activity 7 Patient refused to complete or attempt activity 9 The patient did not perform the activity before the current illness or injury 88 Not attempted due to Medical conditions or safety concerns Transfers (B, C, W/C) (FIM): 2 Scootin Rollin Supine to/from Sit: 2 Sit to/from Stand: 2 Bed to/from Chair: 2 Patient needs cues for hand placement and safety, will try to pull up from therapist. Weight Bearing Right Lower Extremity: Right Weight Bearing/Tolerated Left Lower Extremity: Left Weight Bearing/Tolerated Gait Training Gait (FIM): 1 Distance: 0 Gait Assistive Device: FWW attempted to step forward but could not Exercises Seated Therapy Exercises: Ankle pumps, Long arc quads Seated Reps: 15 Treatments bed mobility and transfers, functional strengthening Assessment Current Status: Poor Progress no ambulation, patient max assist for transfers PT Snf Goals Blast Furnace Keeper Goals PT Snf Goals Time Frame: Jul 16, 2018 Transfers (B,C,W/C) (FIM): 4 Gait (FIM): 1 Gait distance (FIM): 1=up to 49 ft Distance: 10' Gait Level of Assist: 3 Gait Assistive Device: FWW PT Plan Problem List Problem List: Activity Tolerance, Functional Strength, Safety, Balance, Gait, Transfer, Bed Mobility, ROM Treatment/Plan Treatment Plan: Continue Plan of Care Treatment Plan: Bed Mobility, Education, Functional Activity Corrine, Functional Strength, Safety, Therapeutic Exercise, Transfers Treatment Duration: Jul 16, 2018 Frequency: 11 times per week Estimated Hrs Per Day: .5 hour per day Patient and/or Family Agrees t: Yes Safety Risks/Education Patient Education: Transfer Techniques, Correct Positioning, Safety Issues Teaching Recipient: Patient Teaching Methods: Demonstration, Discussion Response to Teaching: Reinforcement Needed Time/GCodes Time In: 1042 Time Out: 1055 Total Billed Treatment Time: 13 Total Billed Treatment 1 visit FA NIKKI BUSH PT Jul 06, 2018 11:00
[2018-07-06 13:50] VITALS: BP 159/68
--- NOTE | 2018-07-08 16:48 | Physician Query-Anemia ---
Physician Query-Anemia Query to Physician: Provider's Document Request-Please contact geneticist listed on document for more information. Dear Provider, In cases where a patient has anemia and blood loss, the rn allergy can never assume a cause and effect relationship. Please document the type of the anemia, if known, on this form as an addendum: *Please exercise your independent, professional judgement when responding. A specific answer is not anticipated or expected. Based on a review/Patient has: Transfusion: Yes Type of anemia, if known: Anemia due to: acute blood loss If you have questions please contact: Senior Sql Dba: Ext: Thank you for your time and cooperation. Clinical Deputy Clerk Of Court/Senior Sql Dba This is a permanent part of the medical record ROWENA ACOSTA Jul 08, 2018 16:48 BRENDA HERNANDEZ MD Jul 09, 2018 14:35
== END 2018-07-06 13:50 | DRG 470 ==
LOC: EDUNIT# 13:53 → ER 13:55 → 4TH 17:00
PROVIDERS: ADMIT Internal Medicine; ATTEND Internal Medicine
PROC: 0SRS0JZ Replacement of Left Hip Joint, Femoral Surface with Synthetic Substitute, Open Approach (ICD-10-PCS; principal; 2018-07-03 19:59)
DX: S72.012A Unspecified intracapsular fracture of left femur, initial encounter for closed fracture (principal); D62 Acute posthemorrhagic anemia; I25.10 Atherosclerotic heart disease of native coronary artery without angina pectoris; F03.90 Unspecified dementia, unspecified severity, without behavioral disturbance, psychotic disturbance, mood disturbance, and anxiety; I25.2 Old myocardial infarction; L97.909 Non-pressure chronic ulcer of unspecified part of unspecified lower leg with unspecified severity; E78.00 Pure hypercholesterolemia, unspecified; K21.9 Gastro-esophageal reflux disease without esophagitis; K52.9 Noninfective gastroenteritis and colitis, unspecified; M81.0 Age-related osteoporosis without current pathological fracture; M19.91 Primary osteoarthritis, unspecified site; I65.23 Occlusion and stenosis of bilateral carotid arteries; E11.51 Type 2 diabetes mellitus with diabetic peripheral angiopathy without gangrene; I99.8 Other disorder of circulatory system; E78.5 Hyperlipidemia, unspecified; J44.9 Chronic obstructive pulmonary disease, unspecified; R32 Unspecified urinary incontinence; F17.210 Nicotine dependence, cigarettes, uncomplicated; W19.XXXA Unspecified fall, initial encounter; Y92.009 Unspecified place in unspecified non-institutional (private) residence as the place of occurrence of the external cause; Z95.5 Presence of coronary angioplasty implant and graft; Z96.641 Presence of right artificial hip joint; Z79.4 Long term (current) use of insulin
CPT/HCPCS: 36415; 71045; 71046; 73502; 80048; 80053; 81000; 82962; 85007; 85025; 85027; 85610; 85730; 86850; 86900; 86901; 86920; 87077; 87081; 87088; 93005; 96360

== ENCOUNTER 2018-07-17 22:14 | Emergency (ER) | payer MEDICARE, MEDICAID ==
[~2018-07-17] VITALS: Ht 160 cm; Wt 56.7 kg
[~2018-07-17 22:14] MED LIST changes: +ACHD5005 PO; +CRAN500T2 PO; +GLUC1KIT2 INJ; -HYDR-3454 PO; +HYDR-3455 PO; +INSU100V16 SC; +IPRA3AMP31 NEB; +IPRA4AER INH; +LORA0.5T PO; +MAGN500C15 PO
[2018-07-17 22:15] VITALS: BP 132/65
--- NOTE | 2018-07-17 22:28 | ED Integumentary General ---
General Chief Complaint: Skin/Wound Problems Stated Complaint: SURGERY SITE Nursing Triage Note: pt is bleeding from surgical wound site starting this evening. pt sent to ED via EMS from [facility] Source: patient Exam Limitations: no limitations History of Present Illness Date Seen by Provider: Jul 17, 2018 Time Seen by Provider: 22:26 Initial Comments 77-year-old female who was brought to the emergency room by [facility] for complaints of a oozing left hip surgical site that started using this evening. The patient is a resident at [facility] and they dispatched EMS for the bleeding this evening. She still has lilia intact from the hip replacement. Timing/Duration: this evening Location: extremities (left hip) Allergies and Home Medications Allergies Coded Allergies: No Known Drug Allergies (Unverified , 01/29/17) Home Medications Albuterol/Ipratropium 4 Gm Aero, 1 PUFF INH 0800,1130,1500,1830 PRN for IF UNABLE TO USE DUONEB, (Reported) Aspirin 81 Mg Tablet.dr, 81 MG PO DAILY, (Reported) Atorvastatin Calcium 80 Mg Tablet, 80 MG PO DAILY, (Reported) Canagliflozin 100 Mg Tablet, 100 MG PO DAILY, (Reported) Clopidogrel Bisulfate 75 Mg Tablet, 75 MG PO DAILY, (Reported) Cranberry Extract 500 Mg Tablet, 1,500 MG PO HS, (Reported) Cyanocobalamin 1,000 Mcg/Ml Inj, 1,000 MCG IJ OF MONTH, (Reported) Diclofenac Sodium 100 Gm Gel..gram., TOP BID PRN for ARTHRITIS PAIN, (Reported) APPLY TO RIGHT HAND Donepezil HCl 10 Mg Tablet, 10 MG PO HS, (Reported) Ergocalciferol (Vitamin D2) 50,000 Unit Capsule, 50,000 UNITS PO Mo, (Reported) Esomeprazole Magnesium 40 Mg Cap, 40 MG PO DAILY, (Reported) Glucagon,Human Recombinant 1 Mg Vial, 1 MG INJ UD PRN for BLOOD SUGAR, (Reported ) Hydrocodone Bit/Acetaminophen 1 Tab Tab, 1-2 TAB PO Q4H PRN for PAIN-MODERATE Prescribed by: BRENDA HERNANDEZ on 07/06/18 0900 Insulin Aspart 100 Unit/1 Ml Susp, SC AC, (Reported) BELOW 100 = 0 UNITS 100-130 = 2 UNITS 131-160 = 3 UNITS 161-190 = 4 UNITS 191 OR HIGHER = 5 UNITS Insulin Glargine,Hum.rec.anlog 100 Unit/1 Ml Vial, 23 UNIT SQ HS, (Reported) Ipratropium/Albuterol Sulfate 3 Ml Ampul.neb, 3 ML NEB 0800,1400,2000, (Reported ) L.acidoph & Paracasei,B.lactis 1 Each Capsule, 1 CAP PO DAILY, (Reported) Lorazepam 0.5 Mg Tablet, 0.25 MG PO DAILY, (Reported) TAKES 1/2 (0.5MG) TABLET Lorazepam 0.5 Mg Tablet, 1 MG PO HS, (Reported) TAKES 2 (0.5MG) TABLETS Magnesium Oxide 500 Mg Capsule, 500 MG PO DAILY, (Reported) Melatonin 10 Mg Tablet.er, 10 MG PO HS, (Reported) Pioglitazone HCl 15 Mg Tablet, 15 MG PO DAILY, (Reported) Venlafaxine HCl 150 Mg Cap.er.24h, 150 MG PO DAILY, (Reported) Past Mddysco-Nhbxpg-Ejfrkn Hx Patient Social History Type Used: Cigarettes 2nd Hand Smoke Exposure: No Recent Foreign Travel: No Contact w/Someone Who Travel: No Recent Infectious Disease Expo: No Recent Hopitalizations: No Immunizations Up To Date Tetanus Booster (TDap): Unknown PED Vaccines UTD: No Date of Pneumonia Vaccine: Jan 08, 2014 Date of Influenza Vaccine: Mar 10, 2018 Seasonal Allergies Seasonal Allergies: No Past Medical History Surgeries: Yes (CAROTID, STENTS, KYPHOPLASTY, L HIP, R ANKLE) Appendectomy, Coronary Stent, Eye Surgery, 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, Joint Replacement, Orthopedic Respiratory: No Cardiac: Yes (STENTS 2001) Coronary Artery Disease, Heart Attack, High Cholesterol Neurological: Yes Dementia, TIA 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 Disorders: No Female 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 Disorders: Denies 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 Sexually Transmitted Disease: No HIV/AIDS: No Gastrointestinal: Yes Colitis, Gastroesophageal Reflux, Chronic Diarrhea Musculoskeletal: Yes (COMPR FX L1) Osteoporosis, Arthritis, Chronic Back Pain Endocrine: Yes Diabetes, Insulin dep Loss of Vision: Bilateral Hearing Impairment: Denies Cancer: No Psychosocial: Yes Anxiety Integumentary: No Recent Skin Changes Blood Disorders: No Adverse Reaction/Blood Tranf: No (N/A) Family Medical History Alzheimer's disease (dad) Arthritis (mom) Asthma (sister) Completed stroke (mom) Diabetes mellitus (mom) Fibrocystic disease of breast (sister) Hypercholesterolemia (mom) Hypertension (mom) Myocardial infarction (mom) Neoplasm Parkinson's disease Severe allergy (sister) No Family History of: AIDS Abdominal aortic aneurysm Irving's disease Alcoholism Aphasia Cancer of mouth Cardiovascular disease Cataracts Colon cancer Congenital disease Congenital heart disease Coronary thrombosis Cystic fibrosis Deafness or hearing loss Dementia Drug abuse Dysphasia Gastroenteritis Glaucoma Headache disorder Infertility Kidney disease Not obtainable due to adoption Osteoporosis (breast cancer) Prostate cancer Psychosocial problem Respiratory disorder Seizure disorder Thyroid disease Visual disorder No Pertinent Family Hx Physical Exam Vital Signs Vital Signs - First Documented 07/17/18 22:15 Temp 97.0 Pulse 81 Resp 18 B/P (MAP) 132/65 (87) O2 Delivery Room Air Capillary Refill : Less Than 3 Seconds Progress/Results/Core Measures Results/Orders My Orders Orders - YVETTE INFANTE Cephalexin Capsule (Keflex Capsule) (07/17/18 22:30) Wound Culture (07/17/18 22:24) Medications Given in ED Current Medications Medications Dose Ordered Sig/Komal Route Start Time Stop Time Status Last Admin Dose Admin Cephalexin HCl 500 mg ONCE ONCE PO 07/17/18 22:30 07/17/18 22:31 DC 07/17/18 22:43 500 MG Vital Signs/I&O 07/17/18 22:15 Temp 97.0 Pulse 81 Resp 18 B/P (MAP) 132/65 (87) O2 Delivery Room Air Blood Pressure Mean: 87 Departure Impression Primary Impression: Cellulitis Disposition: 01 HOME, SELF-CARE Condition: Stable/Unchanged Departure-Patient Inst. Decision time for Depature: 23:05 Referrals: JOSEY RIDER DO (PCP/Family) Primary Care Physician Patient Instructions: Cellulitis (Skin Infection), Adult (DC) Add. Discharge Instructions: Take medications as directed. Follow-up with your orthopedic surgeon within 1 week for recheck. Return back to the emergency room for worsening symptoms or concerns as needed. All discharge instructions reviewed with patient and/or family. Voiced understanding. Scripts Cephalexin (Keflex) 500 Mg Capsule 500 MG PO BID for 7 Days, #14 CAP Prov: YVETTE INFANTE 07/17/18 YVETTE INFANTE Jul 17, 2018 22:28
[2018-07-17] MEDS ORDERED: CEPHALEXIN 250 MG (KEFLEX) CAP PO ONE (22:30)
[2018-07-17] MEDS ORDERED: CEPH-507 PO (23:06)
== END 2018-07-17 23:00 | disposition home or self-care (01) ==
LOC: EDUNIT# 22:14 → ER 22:15
DX: L03.116 Cellulitis of left lower limb (principal); T81.40XA Infection following a procedure, unspecified, initial encounter; I25.10 Atherosclerotic heart disease of native coronary artery without angina pectoris; I25.2 Old myocardial infarction; E78.00 Pure hypercholesterolemia, unspecified; F03.90 Unspecified dementia, unspecified severity, without behavioral disturbance, psychotic disturbance, mood disturbance, and anxiety; K21.9 Gastro-esophageal reflux disease without esophagitis; M81.0 Age-related osteoporosis without current pathological fracture; E11.9 Type 2 diabetes mellitus without complications; F41.9 Anxiety disorder, unspecified; Z82.49 Family history of ischemic heart disease and other diseases of the circulatory system; Z87.19 Personal history of other diseases of the digestive system; Z86.73 Personal history of transient ischemic attack (TIA), and cerebral infarction without residual deficits; Z79.82 Long term (current) use of aspirin; Z79.51 Long term (current) use of inhaled steroids; Z98.890 Other specified postprocedural states; Z96.642 Presence of left artificial hip joint; Z79.02 Long term (current) use of antithrombotics/antiplatelets; Z79.4 Long term (current) use of insulin; Z95.5 Presence of coronary angioplasty implant and graft; Z90.49 Acquired absence of other specified parts of digestive tract; Z90.710 Acquired absence of both cervix and uterus
CPT/HCPCS: 87070; 87077; 87205; 99283

== ENCOUNTER 2018-07-20 15:45 | Emergency (ER) | payer MEDICARE, MEDICAID ==
[~2018-07-20] VITALS: Ht 170.2 cm; Wt 59.0 kg
[~2018-07-20 15:45] MED LIST changes: +CEPH-507 PO
--- OUTSIDE RECORDS SUMMARY | 2018-07-20 15:55 | XMS REPORT | Continuity of Care Document ---
Author Author [facility] Organization [facility] Address Unknown Phone Unavailable Allergies Active Description Code Type Severity Reaction Onset Reported/Identified Relationship to Patient Clinical Status Yes No Known Drug Allergies [id number] Drug Allergy Unknown N/A 01/29/2017 Medications There [...] INFARCT 11/18/2011 Ot 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 [place] CORON 11/18/2011 Ot 433.10 CAROTID ARTERY OCCLUSION [...] NOS 11/24/2011 Ot 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 [place] CORON 11/24/2011 Ot 433.10 CAROTID ARTERY OCCLUSION [...] DO Ot 300.00 ANXIETY STATE NOS 08/03/2014 JSOEY RIDER DO Ot 305.1 TOBACCO USE DISORDER 08/03/2014 JOSEY RIDER DO Ot 401.9 HYPERTENSION NOS 08/03/2014 JOSEY RIDER DO Ot 412 OLD MYOCARDIAL INFARCT 08/03/2014 JOSEY RIDER DO Ot 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 [place] CORON 08/03/2014 JOSEY RIDER DO Ot 443.9 [...] 793.82 08/06/2014 Ot V76.12 08/06/2014 NEY ASTUDILLO FRUIT I FARMWORKER Ot 719.07 08/06/2014 NEY ASTUDILLO FRUIT I FARMWORKER Ot 719.47 08/06/2014 JOSEY RIDER DO Ot [...] RIDER DO Ot 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 [place] CORON 09/25/2014 JOSEY RIDER DO Ot 530.81 [...] KYMBERLY DPM, DAVID Q Ot Z79.899 OTHER PRISON (CURRENT) DRUG THERAPY 02/20/2015 ABRAN MARCUM FACC, [...] MD Ot I25.10 ATHSCL HEART DISEASE OF [place] CORONARY 12/03/2015 RD SULLIVAN MD Ot R07.9 CHEST PAIN, UNSPECIFIED 12/03/2015 RD SULLIVAN MD Ot Z95.5 PRESENCE OF CORONARY ANGIOPLASTY IMPLANT 12/04/2015 RD SULLIVAN MD Ot F17.210 NICOTINE DEPENDENCE, CIGARETTES, UNCOMPL 12/04/2015 RD SULLIVAN MD Ot I10 ESSENTIAL (PRIMARY) HYPERTENSION 12/04/2015 RD SULLIVAN MD Ot I25.10 ATHSCL HEART DISEASE OF [place] CORONARY 12/04/2015 RD SULLIVAN MD Ot R07.9 CHEST PAIN, UNSPECIFIED 12/04/2015 RD SULLIVAN MD T Ot Z95.5 PRESENCE OF CORONARY ANGIOPLASTY IMPLANT 12/05/2015 RD SULLIVAN MD Ot F17.210 NICOTINE DEPENDENCE, CIGARETTES, UNCOMPL 12/05/2015 RD SULLIVAN MD T Ot I10 ESSENTIAL (PRIMARY) HYPERTENSION 12/05/2015 RD SULLIVAN MD T Ot I25.10 ATHSCL HEART DISEASE OF [place] CORONARY 12/05/2015 RD SULLIVAN MD Ot R07.9 CHEST PAIN, UNSPECIFIED 12/05/2015 RD SULLIVAN MD Ot Z95.5 PRESENCE OF CORONARY ANGIOPLASTY IMPLANT 12/09/2015 RD SULLIVAN MD Ot F17.210 NICOTINE DEPENDENCE, CIGARETTES, UNCOMPL 12/09/2015 RD SULLIVAN MD Ot I10 ESSENTIAL (PRIMARY) HYPERTENSION 12/09/2015 RD SULLIVAN MD Ot I25.10 ATHSCL HEART DISEASE OF [place] CORONARY 12/09/2015 RD SULLIVAN MD Ot R07.9 CHEST PAIN, UNSPECIFIED 12/09/2015 RD SULLIVAN MD Ot Z95.5 PRESENCE OF CORONARY ANGIOPLASTY IMPLANT 12/26/2015 ANAYELI DICKENS ANODIZING LINE OPERATOR Ot Z53.9 PROCEDURE AND TREATMENT NOT CARRIED OUT, 12/26/2015 ANAYELI DICKENS ANODIZING LINE OPERATOR Ot E78.4 OTHER HYPERLIPIDEMIA 12/26/2015 NICKMAANAYELI L ANODIZING LINE OPERATOR Ot I65.23 OCCLUSION AND STENOSIS OF BILATERAL NG 01/17/2016 ANAYELI DICKENS L ANODIZING LINE OPERATOR Ot E78.4 OTHER HYPERLIPIDEMIA 01/17/2016 BAIMA ANAYELI L ANODIZING LINE OPERATOR Ot I65.23 OCCLUSION AND STENOSIS OF BILATERAL NG 01/24/2016 BAIMA, ANAYELI L ANODIZING LINE OPERATOR Ot I65.23 OCCLUSION AND STENOSIS OF BILATERAL NG 01/27/2016 JOSEY RIDER DO Ot R92.8 OTH ABN AND INCONCLUSIVE FINDINGS ON DX 01/27/2016 JOSEY RIDER DO Ot R92.8 OTH ABN AND INCONCLUSIVE FINDINGS ON DX 01/30/2016 ANAYELI DICKENS ANODIZING LINE OPERATOR Ot E78.4 OTHER HYPERLIPIDEMIA 01/30/2016 BAIMA ANAYELI L ANODIZING LINE OPERATOR Ot I65.23 OCCLUSION AND STENOSIS OF BILATERAL NG 02/04/2016 BAIMA ANAYELI L ANODIZING LINE OPERATOR Ot I65.23 OCCLUSION AND STENOSIS OF BILATERAL [...] NOS 02/14/2016 Ot 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 [place] CORON 02/14/2016 Ot 433.10 CAROTID ARTERY OCCLUSION [...] NEOPLASM OF [place] 02/14/2016 RIDINGS, NEY C FRUIT I FARMWORKER Ot 719.07 JOINT EFFUSION-ANKLE 02/14/2016 RIDINGS, NEY C FRUIT I FARMWORKER Ot 719.47 JOINT PAIN-ANKLE 02/14/2016 JOSEY RIDER [...] INCONCLUSIVE FINDINGS ON DX 02/14/2016 ANAYELI DICKENS ANODIZING LINE OPERATOR Ot I65.23 OCCLUSION AND STENOSIS OF BILATERAL NG 02/14/2016 ANAYELI DICKENS ANODIZING LINE OPERATOR Ot Z53.9 PROCEDURE AND TREATMENT NOT CARRIED OUT, 02/14/2016 ANAYELI DICKENS ANODIZING LINE OPERATOR Ot E78.4 OTHER HYPERLIPIDEMIA 02/14/2016 ANAYELI DICKENS ANODIZING LINE OPERATOR Ot I65.23 OCCLUSION AND STENOSIS OF BILATERAL NG 02/14/2016 JOSEY RIDER DO Ot R92.8 OTH ABN AND INCONCLUSIVE FINDINGS ON DX 02/18/2016 ANAYELI DICKENS ANODIZING LINE OPERATOR Ot E78.4 OTHER HYPERLIPIDEMIA 02/18/2016 ANAYELI DICKENS L ANODIZING LINE OPERATOR Ot I25.10 ATHSCL HEART DISEASE OF [place] CORONARY 03/06/2016 ANAYELI DICKENS ANODIZING LINE OPERATOR Ot E78.4 OTHER HYPERLIPIDEMIA 03/06/2016 ANAYELI DICKENS ANODIZING LINE OPERATOR Ot I25.10 ATHSCL HEART DISEASE OF [place] CORONARY 03/18/2016 ANAYELI DICKENS Hilton ANODIZING LINE OPERATOR Ot E78.4 OTHER HYPERLIPIDEMIA 03/18/2016 NICKANAYELI HURTADO Hilton ANODIZING LINE OPERATOR Ot I25.10 ATHSCL HEART DISEASE OF [place] CORONARY 04/10/2016 RIDERJOSEY DODSON DO J Ot [...] DONIS Ot I25.10 ATHSCL HEART DISEASE OF [place] CORONARY 08/03/2016 KAYLIN DONIS Ot S01.511A LACERATION WITHOUT FOREIGN BODY OF LIP, 08/03/2016 KAYLIN DONIS Ot S60.512A ABRASION OF LEFT HAND, INITIAL ENCOUNTER 08/03/2016 KAYLIN DONIS Ot W19.XXXA UNSPECIFIED FALL, INITIAL ENCOUNTER 08/03/2016 KAYLIN DONIS Ot Y99.8 OTHER EXTERNAL CAUSE STATUS 08/03/2016 KAYLIN DONIS Ot Z23 ENCOUNTER FOR IMMUNIZATION 08/03/2016 KAYLIN DONIS Ot Z79.4 PRISON (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 08/03/2016 KAYLIN DONIS Ot Z79.82 PRISON (CURRENT) USE OF ASPIRIN 08/03/2016 KAYLIN DONIS Ot Z79.899 OTHER ACQUISITIONS EDITOR (CURRENT) DRUG THERAPY 08/03/2016 KAYLIN DONIS Ot Z95.5 PRESENCE OF CORONARY ANGIOPLASTY IMPLANT 08/03/2016 KAYLIN DONIS Ot Z96.641 PRESENCE OF RIGHT ARTIFICIAL HIP JOINT 08/11/2016 JOSEY RIDER DO Ot R92.8 OTH ABN AND INCONCLUSIVE FINDINGS ON DX 08/19/2016 JOSEY RIDER DO Ot R92.8 OTH ABN AND INCONCLUSIVE FINDINGS ON DX 08/25/2016 ANAYELI DICKENS ANODIZING LINE OPERATOR Ot E78.4 OTHER HYPERLIPIDEMIA 08/25/2016 ANAYELI DICKENS ANODIZING LINE OPERATOR Ot I10 ESSENTIAL (PRIMARY) HYPERTENSION 08/25/2016 BAIGENESIS ANAYELI L ANODIZING LINE OPERATOR Ot I25.10 ATHSCL HEART DISEASE OF [place] CORONARY 09/15/2016 JOSEY RIDER DO Ot R19.7 DIARRHEA, UNSPECIFIED 09/22/2016 BAIMA ANAYELI L ANODIZING LINE OPERATOR Ot E78.4 OTHER HYPERLIPIDEMIA 09/22/2016 BAIMA, ANAYELI L ANODIZING LINE OPERATOR Ot I10 ESSENTIAL (PRIMARY) HYPERTENSION 09/22/2016 BAIMAANNEANAYELI L ANODIZING LINE OPERATOR Ot I25.10 ATHSCL HEART DISEASE OF [place] CORONARY 09/28/2016 BAIMAANNEANAYELI L ANODIZING LINE OPERATOR Ot E78.4 OTHER HYPERLIPIDEMIA 09/28/2016 BAIMA, ANAYELI L ANODIZING LINE OPERATOR Ot I10 ESSENTIAL (PRIMARY) HYPERTENSION 09/28/2016 ANNE DICKENSHER L ANODIZING LINE OPERATOR Ot I25.10 ATHSCL HEART DISEASE OF [place] CORONARY 10/13/2016 KAYLIN DONIS Ot E11.9 TYPE 2 DIABETES MELLITUS WITHOUT COMPLIC 10/13/2016 KAYLIN DONIS Ot F17.210 NICOTINE DEPENDENCE, CIGARETTES, UNCOMPL 10/13/2016 KAYLIN DONIS Ot I25.10 ATHSCL HEART DISEASE OF [place] CORONARY 10/13/2016 KAYLIN DONIS Ot S01.511A LACERATION WITHOUT FOREIGN BODY OF LIP, 10/13/2016 KAYLIN DONIS Ot S60.512A ABRASION OF LEFT HAND, INITIAL ENCOUNTER 10/13/2016 KAYLIN DONIS Ot W19.XXXA UNSPECIFIED FALL, INITIAL ENCOUNTER 10/13/2016 KAYLIN DONIS Ot Y99.8 OTHER EXTERNAL CAUSE STATUS 10/13/2016 KAYLIN DONIS Ot Z23 ENCOUNTER FOR IMMUNIZATION 10/13/2016 KAYLIN DONIS Ot Z79.4 ACQUISITIONS EDITOR (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 10/13/2016 KAYLIN DONIS Ot Z79.82 ACQUISITIONS EDITOR (CURRENT) USE OF ASPIRIN 10/13/2016 KAYLIN DONIS Ot Z79.899 OTHER PRISON (CURRENT) DRUG THERAPY 10/13/2016 KAYLIN DONIS Ot Z95.5 PRESENCE OF CORONARY ANGIOPLASTY IMPLANT 10/13/2016 KAYLIN DONIS Ot Z96.641 PRESENCE OF RIGHT ARTIFICIAL HIP JOINT 10/30/2016 KAYLIN DONIS Ot E11.9 TYPE 2 DIABETES MELLITUS WITHOUT COMPLIC 10/30/2016 KAYLIN DONIS Ot F17.210 NICOTINE DEPENDENCE, CIGARETTES, UNCOMPL 10/30/2016 KAYLIN DONIS Ot I25.10 ATHSCL HEART DISEASE OF [place] CORONARY 10/30/2016 KAYLIN DONIS Ot S01.511A LACERATION WITHOUT FOREIGN BODY OF LIP, 10/30/2016 KAYLIN DONIS Ot S60.512A ABRASION OF LEFT HAND, INITIAL ENCOUNTER 10/30/2016 KAYLIN DONIS Ot W19.XXXA UNSPECIFIED FALL, INITIAL ENCOUNTER 10/30/2016 KAYLIN DONIS Ot Y99.8 OTHER EXTERNAL CAUSE STATUS 10/30/2016 KAYLIN DONIS Ot Z23 ENCOUNTER FOR IMMUNIZATION 10/30/2016 KAYLIN DONIS Ot Z79.4 PRISON (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 10/30/2016 KAYLIN DONIS Ot Z79.82 ACQUISITIONS EDITOR (CURRENT) USE OF ASPIRIN 10/30/2016 KAYLIN DONIS Ot Z79.899 OTHER ACQUISITIONS EDITOR (CURRENT) DRUG THERAPY 10/30/2016 KAYLIN DONIS L Ot Z95.5 PRESENCE OF CORONARY ANGIOPLASTY IMPLANT 10/30/2016 KAYLIN DONIS L Ot Z96.641 PRESENCE OF RIGHT ARTIFICIAL HIP JOINT 01/14/2017 CONNOR MODI Ot E11.9 TYPE 2 DIABETES MELLITUS WITHOUT COMPLIC 01/14/2017 CONNOR MODIP Ot E78.00 PURE HYPERCHOLESTEROLEMIA, UNSPECIFIED 01/14/2017 CONNOR MODI Ot F41.9 ANXIETY DISORDER, UNSPECIFIED 01/14/2017 CONNOR MODIP Ot I25.10 ATHSCL HEART DISEASE OF [place] CORONARY 01/14/2017 CONNOR MODIP Ot I25.2 OLD [...] AND HIKING 01/14/2017 CONNOR MODIP Ot Z79.4 PRISON (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 01/14/2017 CONNOR MODIP Ot Z79.82 PRISON (CURRENT) USE OF ASPIRIN 01/14/2017 CONNOR MODIP [...] HOWARDP Ot I25.10 ATHSCL HEART DISEASE OF [place] CORONARY 01/18/2017 LY, CONNOR HOWARDP Ot I25.2 OLD MYOCARDIAL INFARCTION 01/18/2017 LY, CONNOR HOWARDP Ot K21.9 GASTRO-ESOPHAGEAL REFLUX DISEASE WITHOUT 01/18/2017 LYCONNOR Braswell ANODIZING LINE OPERATOR Ot M51.36 OTHER INTERVERTEBRAL DISC DEGENERATION, 01/18/2017 LY, CONNOR HOWARDP Ot M54.5 LOW BACK PAIN 01/18/2017 LY, CONNOR HOWARDP Ot S39.012A STRAIN OF MUSCLE, FASCIA AND TENDON OF L 01/18/2017 LYCONNOR Braswell ANODIZING LINE OPERATOR Ot W01.0XXA FALL SAME LEV FROM SLIP/TRIP W/O STRIKE 01/18/2017 LYCONNOR Braswell ANODIZING LINE OPERATOR Ot Y93.01 ACTIVITY, WALKING, MARCHING AND HIKING 01/18/2017 LYCONNOR Braswell ANODIZING LINE OPERATOR Ot Z79.4 ACQUISITIONS EDITOR (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 01/18/2017 LYCONNOR Braswell ANODIZING LINE OPERATOR Ot Z79.82 PRISON (CURRENT) USE OF ASPIRIN 01/18/2017 LYCONNOR Braswell ANODIZING LINE OPERATOR Ot Z80.9 FAMILY HISTORY OF MALIGNANT NEOPLASM, UN 01/18/2017 LYCONNOR Braswell ANODIZING LINE OPERATOR Ot Z86.73 PRSNL HX OF TIA (TIA), AND CEREB INFRC W 01/18/2017 LY, CONNOR HOWARDP Ot Z87.19 PERSONAL HISTORY OF OTHER DISEASES OF TH 01/18/2017 LYCONNOR Braswell ANODIZING LINE OPERATOR Ot Z90.710 ACQUIRED ABSENCE OF BOTH CERVIX AND UTER 01/18/2017 LY, CONNOR HOWARDP Ot Z95.5 PRESENCE OF CORONARY ANGIOPLASTY IMPLANT 01/26/2017 Ot 250.00 DIAB JEFFY WO COMPL, TYPE II OR UNSPEC TY 01/26/2017 Ot 272.4 HYPERLIPIDEMIA NEC/NOS 01/26/2017 Ot 305.1 TOBACCO USE DISORDER 01/26/2017 Ot 401.9 HYPERTENSION NOS 01/26/2017 Ot 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 [place] CORON 01/26/2017 Ot 433.10 CAROTID ARTERY OCCLUSION [...] NEOPLASM OF [place] 01/26/2017 RIDINGS, NEY C FRUIT I FARMWORKER Ot 719.07 JOINT EFFUSION-ANKLE 01/26/2017 RIDINGS, NEY C FRUIT I FARMWORKER Ot 719.47 JOINT PAIN-ANKLE 01/26/2017 JOSEY RIDER [...] INCONCLUSIVE FINDINGS ON DX 01/26/2017 ANAYELI DICKENS ANODIZING LINE OPERATOR Ot I65.23 OCCLUSION AND STENOSIS OF BILATERAL NG 01/26/2017 ANAYELI DICKENS ANODIZING LINE OPERATOR Ot Z53.9 PROCEDURE AND TREATMENT NOT CARRIED OUT, 01/26/2017 ANAYELI DICKENS ANODIZING LINE OPERATOR Ot E78.4 OTHER HYPERLIPIDEMIA 01/26/2017 ANAYELI DICKENS ANODIZING LINE OPERATOR Ot I65.23 OCCLUSION AND STENOSIS OF BILATERAL NG 01/26/2017 JOSEY RIDER DO Ot R92.8 OTH ABN AND INCONCLUSIVE FINDINGS ON DX 01/26/2017 ANAYELI DICKENS ANODIZING LINE OPERATOR Ot E78.4 OTHER HYPERLIPIDEMIA 01/26/2017 ANAYELI DICKENS ANODIZING LINE OPERATOR Ot I25.10 ATHSCL HEART DISEASE OF [place] CORONARY 01/26/2017 JOSEY RIDER DO Ot R15.9 FULL INCONTINENCE OF FECES 01/26/2017 JOSEY RIDRE DO Ot R32 UNSPECIFIED URINARY INCONTINENCE 01/26/2017 JOSEY RIDER DO, Ot R92.8 OTH ABN AND INCONCLUSIVE FINDINGS ON DX 01/26/2017 ANAYELI DICKENS ANODIZING LINE OPERATOR Ot E78.4 OTHER HYPERLIPIDEMIA 01/26/2017 ANAYELI DICKENS ANODIZING LINE OPERATOR Ot I10 ESSENTIAL (PRIMARY) HYPERTENSION 01/26/2017 ANAYELI DICKENS ANODIZING LINE OPERATOR Ot I25.10 ATHSCL HEART DISEASE OF [place] CORONARY 01/29/2017 JOSEY RIDER DO Ot R19.7 [...] NOS 02/02/2017 Ot 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 [place] CORON 02/02/2017 Ot 433.10 CAROTID ARTERY OCCLUSION [...] MAMMO-MALIGN NEOPLASM OF [place] 02/02/2017 RIDINGSNEY C FRUIT I FARMWORKER Ot 719.07 JOINT EFFUSION-ANKLE 02/02/2017 RIDINGSNEY C FRUIT I FARMWORKER Ot 719.47 JOINT PAIN-ANKLE 02/02/2017 JOSEY RIDER [...] Ot E78.4 OTHER HYPERLIPIDEMIA 02/02/2017 ANAYELI DICKENS ANODIZING LINE OPERATOR Ot I65.23 OCCLUSION AND STENOSIS OF BILATERAL NG 02/02/2017 JOSEY RIDER DO Ot R92.8 OTH ABN AND INCONCLUSIVE FINDINGS ON DX 02/02/2017 CHRISSIE ANAYELIHER Hilton COHN Ot E78.4 OTHER HYPERLIPIDEMIA 02/02/2017 ANAYELI DICKENS Ot I25.10 ATHSCL HEART DISEASE OF [place] CORONARY 02/02/2017 JOSEY RIDER DO Ot R15.9 FULL INCONTINENCE OF FECES 02/02/2017 JOSEY RIDER DO Ot R32 UNSPECIFIED URINARY INCONTINENCE 02/02/2017 JOSEY RIDER DO Ot R92.8 OTH ABN AND INCONCLUSIVE FINDINGS ON DX 02/02/2017 ANAYELI DICKENS Ot E78.4 OTHER HYPERLIPIDEMIA 02/02/2017 ANAYELI DICKENS Ot I10 ESSENTIAL (PRIMARY) HYPERTENSION 02/02/2017 ANAYELI DICKENS Ot I25.10 ATHSCL HEART DISEASE OF [place] CORONARY 02/02/2017 JOSEY RIDER DO Ot M48.56XA [...] Z Ot I25.10 ATHSCL HEART DISEASE OF [place] CORONARY 02/02/2017 GALINA MARCUM PRAKASH Z Ot [...] 02/02/2017 KAMLESH MOJICA MDIQ Z Ot Z79.4 PRISON (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 02/02/2017 GALINA MARCUM PRAKASH Z Ot Z79.899 OTHER PRISON (CURRENT) DRUG THERAPY 02/02/2017 GALINA MARCUM PRAKASH Z Ot Z95.5 PRESENCE OF CORONARY ANGIOPLASTY IMPLANT 02/03/2017 JOSEY RIDER DO Ot S32.010A WEDGE COMPRESSION FRACTURE OF FIRST LUMB 02/03/2017 JOSEY RIDER DO Ot W19.XXXA UNSPECIFIED FALL, INITIAL ENCOUNTER 02/03/2017 JOSEY RIDER DO Ot Y99.8 OTHER EXTERNAL CAUSE STATUS 02/03/2017 ANAYELI DICKENS Ot E78.4 OTHER HYPERLIPIDEMIA 02/03/2017 ANAYELI DCIKENS ANODIZING LINE OPERATOR Ot I10 ESSENTIAL (PRIMARY) HYPERTENSION 02/03/2017 ANAYELI DICKENS Ot I25.10 ATHSCL HEART DISEASE OF [place] CORONARY 02/03/2017 ANAYELI DICKENSP Ot I65.23 OCCLUSION [...] Z Ot I25.10 ATHSCL HEART DISEASE OF [place] CORONARY 02/04/2017 GALINA MARCUM PRAKASH Z Ot K21.9 GASTRO-ESOPHAGEAL REFLUX DISEASE WITHOUT 02/04/2017 GALINA MARCUM PRAKASH Z Ot S32.010A WEDGE COMPRESSION FRACTURE OF FIRST LUMB 02/04/2017 GALINA MARCUM PRAKASH Z Ot X58.XXXA EXPOSURE TO OTHER SPECIFIED FACTORS, INI 02/04/2017 GALINA MARCUM PRAKASH Z Ot Y99.8 OTHER EXTERNAL CAUSE STATUS 02/04/2017 GALINA MARCUM PRAKASH Z Ot Z79.4 ACQUISITIONS EDITOR (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 02/04/2017 GALINA MARCUM PRAKASH Z Ot Z79.899 OTHER PRISON (CURRENT) DRUG THERAPY 02/04/2017 GALINA MARCUM PRAKASH Z Ot Z95.5 PRESENCE OF CORONARY ANGIOPLASTY IMPLANT 02/04/2017 CARMEN RAMIREZ DO Ot N39.0 URINARY TRACT INFECTION, SITE NOT SPECIF 02/05/2017 ANAYELI DICKENS ANODIZING LINE OPERATOR Ot E78.4 OTHER HYPERLIPIDEMIA 02/05/2017 ANAYELI DICKENS ANODIZING LINE OPERATOR Ot I10 ESSENTIAL (PRIMARY) HYPERTENSION 02/05/2017 ANAYELI DICKENS ANODIZING LINE OPERATOR Ot I25.10 ATHSCL HEART DISEASE OF [place] CORONARY 02/05/2017 ANAYELI DICKENS ANODIZING LINE OPERATOR Ot I65.23 OCCLUSION AND STENOSIS OF BILATERAL [...] DOI Ot I25.10 ATHSCL HEART DISEASE OF [place] CORONARY 02/05/2017 YANELY RAMIREZ DOI Ot I25.2 [...] ANTIMICROBIAL 02/05/2017 YANELY RAMIREZ DOI Ot Z79.4 ACQUISITIONS EDITOR (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 02/05/2017 YANELY RAMIREZ DOI Ot Z79.891 ACQUISITIONS EDITOR (CURRENT) USE OF OPIATE ANALGE 02/05/2017 YANELY [...] Z Ot I25.10 ATHSCL HEART DISEASE OF [place] CORONARY 02/11/2017 GALINA MARCUM PRAKASH Z Ot K21.9 GASTRO-ESOPHAGEAL REFLUX DISEASE WITHOUT 02/11/2017 GALINA MARCUM PRAKASH Z Ot S32.010A WEDGE COMPRESSION FRACTURE OF FIRST LUMB 02/11/2017 GALINA MARCUM PRAKASH Z Ot X58.XXXA EXPOSURE TO OTHER SPECIFIED FACTORS, INI 02/11/2017 GALINA MARCUM PRAKASH Z Ot Y99.8 OTHER EXTERNAL CAUSE STATUS 02/11/2017 GALINA MARCUM PRAKASH Z Ot Z79.4 PRISON (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 02/11/2017 GALINA MARCUM PRAKASH Z Ot Z79.899 OTHER ACQUISITIONS EDITOR (CURRENT) DRUG THERAPY 02/11/2017 GALINA MARCUM PRAKASH [...] Z Ot F41.9 ANXIETY DISORDER, UNSPECIFIED 02/17/2017 GAILNA MARCUM PRAKASH Z Ot I10 ESSENTIAL (PRIMARY) HYPERTENSION 02/17/2017 GALINA MARCUM PRAKASH Z Ot I25.10 ATHSCL HEART DISEASE OF [place] CORONARY 02/17/2017 GALINA MARCUM PRAKASH Z Ot K21.9 GASTRO-ESOPHAGEAL REFLUX DISEASE WITHOUT 02/17/2017 GALINA MARCUM PRAKASH Z Ot S32.010A WEDGE COMPRESSION FRACTURE OF FIRST LUMB 02/17/2017 GALINA MARCUM PRAKASH Z Ot X58.XXXA EXPOSURE TO OTHER SPECIFIED FACTORS, INI 02/17/2017 KAMLESH MOJICA MDIQ Z Ot Y99.8 OTHER EXTERNAL CAUSE STATUS 02/17/2017 GALINA MARCUM PRAKASH Z Ot Z79.4 ACQUISITIONS EDITOR (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 02/17/2017 GALINA MARCUM PRAKASH Z Ot Z79.899 OTHER PRISON (CURRENT) DRUG THERAPY 02/17/2017 GALINA MARCUM PRAKASH [...] Ot E78.4 OTHER HYPERLIPIDEMIA 02/23/2017 BAIMAANAYELI L ANODIZING LINE OPERATOR Ot I10 ESSENTIAL (PRIMARY) HYPERTENSION 02/23/2017 BAIMAANAYELI L ANODIZING LINE OPERATOR Ot I25.10 ATHSCL HEART DISEASE OF [place] CORONARY 02/23/2017 BAIMAANAYELI L ANODIZING LINE OPERATOR Ot I65.23 OCCLUSION AND STENOSIS OF BILATERAL NG 02/25/2017 BAIMAANAYELI L ANODIZING LINE OPERATOR Ot E78.4 OTHER HYPERLIPIDEMIA 02/25/2017 BAIMA ANAYELI L ANODIZING LINE OPERATOR Ot I10 ESSENTIAL (PRIMARY) HYPERTENSION 02/25/2017 BAIMA ANAYELI L ANODIZING LINE OPERATOR Ot I25.10 ATHSCL HEART DISEASE OF [place] CORONARY 02/25/2017 BAIMAANNEANAYELI L ANODIZING LINE OPERATOR Ot I34.0 NONRHEUMATIC MITRAL (VALVE) INSUFFICIENC 02/25/2017 BAIMAANNEANAYELI L ANODIZING LINE OPERATOR Ot I35.8 OTHER NONRHEUMATIC AORTIC VALVE DISORDER 02/25/2017 BAIMAANAYELI L ANODIZING LINE OPERATOR Ot 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 02/25/2017 BAIMAANNEANAYELI L ANODIZING LINE OPERATOR Ot I65.21 OCCLUSION AND STENOSIS OF RIGHT [...] MD Ot I25.10 ATHSCL HEART DISEASE OF [place] CORONARY 03/02/2017 LOYDA MCKEON MD Ot I25.2 [...] ENCOUNTER 03/02/2017 LOYDA MCKEON MD, Ot Z79.4 PRISON (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 03/02/2017 LOYDA MCKEON MD, Ot Z79.82 PRISON (CURRENT) USE OF ASPIRIN 03/02/2017 LOYDA MCKEON [...] DICKENS Ot I25.10 ATHSCL HEART DISEASE OF [place] CORONARY 03/03/2017 ANAYELI DICKENS Ot I65.23 OCCLUSION [...] DICKENS Ot I25.10 ATHSCL HEART DISEASE OF [place] CORONARY 03/18/2017 ANAYELI DICKENS Ot I34.0 NONRHEUMATIC [...] NOS 03/31/2017 Ot 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 [place] CORON 03/31/2017 Ot 433.10 CAROTID ARTERY OCCLUSION [...] MAMMO-MALIGN NEOPLASM OF [place] 03/31/2017 NEY ASTUDILLO FRUIT I FARMWORKER Ot 719.07 JOINT EFFUSION-ANKLE 03/31/2017 NEY ASTUDILLO FRUIT I FARMWORKER Ot 719.47 JOINT PAIN-ANKLE 03/31/2017 JOSEY RIDER [...] DICKENS Ot I25.10 ATHSCL HEART DISEASE OF [place] CORONARY 03/31/2017 JOSEY RIDER DO Ot R15.9 FULL INCONTINENCE OF FECES 03/31/2017 JOSEY RIDER DO Ot R32 UNSPECIFIED URINARY INCONTINENCE 03/31/2017 JOSEY RIDER DO, Ot R92.8 OTH ABN AND INCONCLUSIVE FINDINGS ON DX 03/31/2017 ANAYELI DICKENS Ot E78.4 OTHER HYPERLIPIDEMIA 03/31/2017 ANAYELI DICKENS Ot I10 ESSENTIAL (PRIMARY) HYPERTENSION 03/31/2017 ANAYELI DICKENS Ot I25.10 ATHSCL HEART DISEASE OF [place] CORONARY 03/31/2017 JOSEY RIDER DO Ot M48.56XA [...] DICKENS Ot I25.10 ATHSCL HEART DISEASE OF [place] CORONARY 03/31/2017 ANYAELI DICKENS Ot I65.23 OCCLUSION AND STENOSIS OF BILATERAL NG 03/31/2017 JOSEY RIDER DO Ot N32.3 DIVERTICULUM OF BLADDER 03/31/2017 JOSEY RIDER DO Ot N32.89 OTHER SPECIFIED DISORDERS OF BLADDER 03/31/2017 JOSEY RIDER DO, Ot S32.010D WEDGE COMPRSN FX FIRST LUM VERT, SUBS FO 03/31/2017 JOSEY RIDER DO, Ot Z09 ENCNTR FOR F/U EXAM AFT TRTMT FOR COND O 03/31/2017 ANAYELI DICKENS L ANODIZING LINE OPERATOR Ot E78.4 OTHER HYPERLIPIDEMIA 03/31/2017 BAIMA ANAYELI L ANODIZING LINE OPERATOR Ot I10 ESSENTIAL (PRIMARY) HYPERTENSION 03/31/2017 BAIMA ANAYELI L ANODIZING LINE OPERATOR Ot I25.10 ATHSCL HEART DISEASE OF [place] CORONARY 03/31/2017 BAIMA ANAYELI L ANODIZING LINE OPERATOR Ot I34.0 NONRHEUMATIC MITRAL (VALVE) INSUFFICIENC 03/31/2017 BAIMA ANAYELI L ANODIZING LINE OPERATOR Ot I35.8 OTHER NONRHEUMATIC AORTIC VALVE DISORDER 03/31/2017 BAIMAANNEANAYELI L ANODIZING LINE OPERATOR Ot 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 03/31/2017 BAIMA ANAYELI L ANODIZING LINE OPERATOR Ot 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 03/31/2017 BAIMA ANAYELI L ANODIZING LINE OPERATOR Ot E34.0 CARCINOID SYNDROME 03/31/2017 BAIMA ANAYELI L ANODIZING LINE OPERATOR Ot E78.4 OTHER HYPERLIPIDEMIA 03/31/2017 BAIMA, ANAYELI L ANODIZING LINE OPERATOR Ot I10 ESSENTIAL (PRIMARY) HYPERTENSION 03/31/2017 BAIMA ANAYELI L ANODIZING LINE OPERATOR Ot I25.10 ATHSCL HEART DISEASE OF [place] CORONARY 03/31/2017 BAIMA ANAYELI L ANODIZING LINE OPERATOR Ot I34.0 NONRHEUMATIC MITRAL (VALVE) INSUFFICIENC 03/31/2017 BAIMA ANAYELI L ANODIZING LINE OPERATOR Ot I35.8 OTHER NONRHEUMATIC AORTIC VALVE DISORDER 03/31/2017 BAIMA, ANAYELI L ANODIZING LINE OPERATOR Ot I65.23 OCCLUSION AND STENOSIS OF BILATERAL NG 03/31/2017 BAIMA ANAYELI L ANODIZING LINE OPERATOR Ot E78.4 OTHER HYPERLIPIDEMIA 03/31/2017 BAIMA, ANAYELI L ANODIZING LINE OPERATOR Ot I10 ESSENTIAL (PRIMARY) HYPERTENSION 03/31/2017 BAIMA ANAYELI L ANODIZING LINE OPERATOR Ot I25.10 ATHSCL HEART DISEASE OF [place] CORONARY 03/31/2017 BAIMA ANAYELI L ANODIZING LINE OPERATOR Ot I34.0 NONRHEUMATIC MITRAL (VALVE) INSUFFICIENC 03/31/2017 BAIMA, ANAYELI L ANODIZING LINE OPERATOR Ot I35.8 OTHER NONRHEUMATIC AORTIC VALVE DISORDER 03/31/2017 BAIMA, ANAYELI L ANODIZING LINE OPERATOR Ot I65.23 OCCLUSION AND STENOSIS OF BILATERAL [...] F17.210 NICOTINE DEPENDENCE, CIGARETTES, UNCOMPL 04/02/2017 GALINA AMRCUM PRAKASH Z Ot F41.9 ANXIETY DISORDER, UNSPECIFIED 04/02/2017 GALINA MARCUM PRAKASH Z Ot I10 ESSENTIAL (PRIMARY) HYPERTENSION 04/02/2017 GALINA MARCUM PRAKASH Z Ot I25.10 ATHSCL HEART DISEASE OF [place] CORONARY 04/02/2017 GALINA MARCUM PRAKASH Z Ot K21.9 GASTRO-ESOPHAGEAL REFLUX DISEASE WITHOUT 04/02/2017 GALINA MARCUM PRAKASH Z Ot S32.010A WEDGE COMPRESSION FRACTURE OF FIRST LUMB 04/02/2017 GALINA MARCUM PRAKASH Z Ot X58.XXXA EXPOSURE TO OTHER SPECIFIED FACTORS, INI 04/02/2017 GALINA MARCUM PRAKASH Z Ot Y99.8 OTHER EXTERNAL CAUSE STATUS 04/02/2017 GALINA MARCUM PRAKASH Z Ot Z79.4 ACQUISITIONS EDITOR (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 04/02/2017 GALINA MARCUM PRAKASH Z Ot Z79.899 OTHER ACQUISITIONS EDITOR (CURRENT) DRUG THERAPY 04/02/2017 GALINA MARCUM PRAKASH Z Ot Z95.5 PRESENCE OF CORONARY ANGIOPLASTY IMPLANT 04/02/2017 JOSEY RIDER DO Ot S32.010D WEDGE COMPRSN FX FIRST LUM VERT, SUBS FO 04/02/2017 JOSEY RIDER DO Ot Z09 ENCNTR FOR F/U EXAM AFT TRTMT FOR COND O 04/05/2017 JOSEY RIDER DO Ot M81.0 AGE-RELATED OSTEOPOROSIS W/O CURRENT PAT 04/06/2017 BAIMA, ANAYELI L ANODIZING LINE OPERATOR Ot E78.4 OTHER HYPERLIPIDEMIA 04/06/2017 ANAYELI DICKENS L ANODIZING LINE OPERATOR Ot I10 ESSENTIAL (PRIMARY) HYPERTENSION 04/06/2017 ANAYELI DICKENS ANODIZING LINE OPERATOR Ot I25.10 ATHSCL HEART DISEASE OF [place] CORONARY 04/06/2017 ANAYELI DICKENS ANODIZING LINE OPERATOR Ot I34.0 NONRHEUMATIC MITRAL (VALVE) INSUFFICIENC 04/06/2017 ANAYELI DICKENS ANODIZING LINE OPERATOR Ot I35.8 OTHER NONRHEUMATIC AORTIC VALVE DISORDER 04/06/2017 ANAYELI DICKENS L ANODIZING LINE OPERATOR Ot 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 04/06/2017 CHRISSIEANAYELI L ANODIZING LINE OPERATOR Ot 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 04/06/2017 JOSEY RIDER DO, Ot S32.010D WEDGE COMPRSN FX FIRST LUM VERT, SUBS FO 04/06/2017 JOSEY RIDER DO, Ot Z09 ENCNTR FOR F/U EXAM AFT TRTMT FOR COND O 04/07/2017 ANAYELI DICKENS ANODIZING LINE OPERATOR Ot E78.4 OTHER HYPERLIPIDEMIA 04/07/2017 ANAYELI DICKENS ANODIZING LINE OPERATOR Ot I10 ESSENTIAL (PRIMARY) HYPERTENSION 04/07/2017 ANAYELI DICKENS ANODIZING LINE OPERATOR Ot I25.10 ATHSCL HEART DISEASE OF [place] CORONARY 04/07/2017 ANAYELI DICKENS ANODIZING LINE OPERATOR Ot I34.0 NONRHEUMATIC MITRAL (VALVE) INSUFFICIENC 04/07/2017 NICKANAYELI HURTADO ANODIZING LINE OPERATOR Ot I35.8 OTHER NONRHEUMATIC AORTIC VALVE DISORDER 04/07/2017 CHRISSIE ANAYELI Hilton ANODIZING LINE OPERATOR Ot I65.23 OCCLUSION AND STENOSIS OF BILATERAL [...] DICKENS Ot I25.10 ATHSCL HEART DISEASE OF [place] CORONARY 04/19/2017 ANAYELI DICKENS Ot I34.0 NONRHEUMATIC [...] Z Ot I25.10 ATHSCL HEART DISEASE OF [place] CORONARY 05/13/2017 KAMLESH MOJICA MDIQ Z Ot [...] 05/13/2017 GALINA MARCUM, PRAKASH Z Ot Z79.4 PRISON (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 05/13/2017 GALINA MARCUM, PRAKASH Z Ot Z79.899 OTHER PRISON (CURRENT) DRUG THERAPY 05/13/2017 GALINA MARCUM, PRAKASH [...] TREATMENT NOT CARRIED OUT 03/22/2018 NEY ASTUDILLO FRUIT I FARMWORKER Ot 719.07 JOINT EFFUSION-ANKLE 03/22/2018 NEY ASTUDILLO [...] INCONCLUSIVE FINDINGS ON DX 03/22/2018 ANAYELI DICKENS ANODIZING LINE OPERATOR Ot I65.23 OCCLUSION AND STENOSIS OF BILATERAL NG 03/22/2018 ANAYELI DICKENS ANODIZING LINE OPERATOR Ot Z53.9 PROCEDURE AND TREATMENT NOT CARRIED OUT, 03/22/2018 ANAYELI DICKENS ANODIZING LINE OPERATOR Ot E78.4 OTHER HYPERLIPIDEMIA 03/22/2018 ANAYELI DICKENS ANODIZING LINE OPERATOR Ot I65.23 OCCLUSION AND STENOSIS OF BILATERAL NG 03/22/2018 JOSEY RIDER DO Ot R92.8 OTH ABN AND INCONCLUSIVE FINDINGS ON DX 03/22/2018 ANAYELI DICKENS ANODIZING LINE OPERATOR Ot E78.4 OTHER HYPERLIPIDEMIA 03/22/2018 ANAYELI DICKENS Ot I25.10 ATHSCL HEART DISEASE OF [place] CORONARY 03/22/2018 JOSEY RIDER DO Ot R15.9 FULL INCONTINENCE OF FECES 03/22/2018 JOSEY RIDER DO Ot R32 UNSPECIFIED URINARY INCONTINENCE 03/22/2018 JOSEY RIDER DO, Ot R92.8 OTH ABN AND INCONCLUSIVE FINDINGS ON DX 03/22/2018 ANAYELI DICKENS Ot E78.4 OTHER HYPERLIPIDEMIA 03/22/2018 ANAYELI DICKENS ANODIZING LINE OPERATOR Ot I10 ESSENTIAL (PRIMARY) HYPERTENSION 03/22/2018 ANAYELI DICKENS Ot I25.10 ATHSCL HEART DISEASE OF [place] CORONARY 03/22/2018 JOSEY RIDER DO Ot 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, NEC, LUMBAR REGION, 03/22/2018 JOSEY RIDER DO Ot S32.010A WEDGE COMPRESSION FRACTURE OF FIRST LUMB 03/22/2018 JOSEY RIDER DO Ot W19.XXXA UNSPECIFIED FALL, INITIAL ENCOUNTER 03/22/2018 JOSEY RIDER DO Ot Y99.8 OTHER EXTERNAL CAUSE STATUS 03/22/2018 ANAYELI DICKENS Ot E78.4 OTHER HYPERLIPIDEMIA 03/22/2018 ANAYELI DICKENS ANODIZING LINE OPERATOR Ot I10 ESSENTIAL (PRIMARY) HYPERTENSION 03/22/2018 ANAYELI DICKENS Ot I25.10 ATHSCL HEART DISEASE OF [place] CORONARY 03/22/2018 ANAYELI DICKENSP Ot I65.23 OCCLUSION AND STENOSIS OF BILATERAL NG 03/22/2018 JOSEY RIDER DO Ot N32.3 DIVERTICULUM OF BLADDER 03/22/2018 JOSEY RIDER DO Ot N32.89 OTHER SPECIFIED DISORDERS OF BLADDER 03/22/2018 ANAYELI DICKENS ANODIZING LINE OPERATOR Ot E78.4 OTHER HYPERLIPIDEMIA 03/22/2018 ANAYELI DICKENS ANODIZING LINE OPERATOR Ot I10 ESSENTIAL (PRIMARY) HYPERTENSION 03/22/2018 ANAYELI DICKENS ANODIZING LINE OPERATOR Ot I25.10 ATHSCL HEART DISEASE OF [place] CORONARY 03/22/2018 ANAYELI DICKENS ANODIZING LINE OPERATOR Ot I34.0 NONRHEUMATIC MITRAL (VALVE) INSUFFICIENC 03/22/2018 ANAYELI DICKENS ANODIZING LINE OPERATOR Ot I35.8 OTHER NONRHEUMATIC AORTIC VALVE DISORDER 03/22/2018 ANAYELI DICKENS ANODIZING LINE OPERATOR Ot 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 03/22/2018 BAIANAYELI HURTADO L ANODIZING LINE OPERATOR Ot 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 03/22/2018 ANAYELI DICKENS L ANODIZING LINE OPERATOR Ot E34.0 CARCINOID SYNDROME 03/22/2018 BAIANAYELI HURTADO L ANODIZING LINE OPERATOR Ot E78.4 OTHER HYPERLIPIDEMIA 03/22/2018 BAIMAANNEANAYELI L ANODIZING LINE OPERATOR Ot I10 ESSENTIAL (PRIMARY) HYPERTENSION 03/22/2018 BAIANNE HURTADOHER L ANODIZING LINE OPERATOR Ot I25.10 ATHSCL HEART DISEASE OF [place] CORONARY 03/22/2018 ANAYELI DICKENS L ANODIZING LINE OPERATOR Ot I34.0 NONRHEUMATIC MITRAL (VALVE) INSUFFICIENC 03/22/2018 ANAYELI DICKENS L ANODIZING LINE OPERATOR Ot I35.8 OTHER NONRHEUMATIC AORTIC VALVE DISORDER 03/22/2018 BAIANAYELI HURTADO L ANODIZING LINE OPERATOR Ot I65.23 OCCLUSION AND STENOSIS OF BILATERAL NG 03/22/2018 ANAYELI DICKENS L ANODIZING LINE OPERATOR Ot E78.4 OTHER HYPERLIPIDEMIA 03/22/2018 BAIANNE HURTADOHER L ANODIZING LINE OPERATOR Ot I10 ESSENTIAL (PRIMARY) HYPERTENSION 03/22/2018 ANAYELI DICKENS L ANODIZING LINE OPERATOR Ot I25.10 ATHSCL HEART DISEASE OF [place] CORONARY 03/22/2018 ANAYELI DICKENS L ANODIZING LINE OPERATOR Ot I34.0 NONRHEUMATIC MITRAL (VALVE) INSUFFICIENC 03/22/2018 NICKANAYELI HURTADO L ANODIZING LINE OPERATOR Ot I35.8 OTHER NONRHEUMATIC AORTIC VALVE DISORDER 03/22/2018 NICKANAYELI HURTADO ANODIZING LINE OPERATOR Ot I65.23 OCCLUSION AND STENOSIS OF BILATERAL [...] CCDS Ot I25.10 ATHSCL HEART DISEASE OF [place] CORONARY 03/24/2018 ABRAN MARCUM FACC, JOAQUÍN HINOJOSAP CCDS Ot I65.29 OCCLUSION AND STENOSIS OF UNSPECIFIED CA 03/24/2018 ABRAN MARCUM FACC, JOAQUÍN HINOJOSAP CCDS Ot Z72.0 TOBACCO USE 03/25/2018 RIDINGS, NEY C FRUIT I FARMWORKER Ot 719.07 JOINT EFFUSION-ANKLE 03/25/2018 RIDINGS, NEY C FRUIT I FARMWORKER Ot 719.47 JOINT PAIN-ANKLE 03/25/2018 JOSEY RIDER [...] Ot E78.4 OTHER HYPERLIPIDEMIA 03/25/2018 ANAYELI DICKENS ANODIZING LINE OPERATOR Ot I65.23 OCCLUSION AND STENOSIS OF BILATERAL NG 03/25/2018 JOSEY RIDER DO Ot R92.8 OTH ABN AND INCONCLUSIVE FINDINGS ON DX 03/25/2018 ANAYELI DICKENSP Ot E78.4 OTHER HYPERLIPIDEMIA 03/25/2018 ANAYELI DICKENSP Ot I25.10 ATHSCL HEART DISEASE OF [place] CORONARY 03/25/2018 JOSEY RIDER DO Ot R15.9 FULL INCONTINENCE OF FECES 03/25/2018 JOSEY RIDER DO Ot R32 UNSPECIFIED URINARY INCONTINENCE 03/25/2018 JOSEY RIDER DO Ot R92.8 OTH ABN AND INCONCLUSIVE FINDINGS ON DX 03/25/2018 ANAYELI DICKENS ANODIZING LINE OPERATOR Ot E78.4 OTHER HYPERLIPIDEMIA 03/25/2018 ANAYELI DICKENS ANODIZING LINE OPERATOR Ot I10 ESSENTIAL (PRIMARY) HYPERTENSION 03/25/2018 ANAYELI DICKENS ANODIZING LINE OPERATOR Ot I25.10 ATHSCL HEART DISEASE OF [place] CORONARY 03/25/2018 JOSEY RIDER DO Ot 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, NEC, LUMBAR REGION, 03/25/2018 JOSEY RIDER DO Ot S32.010A WEDGE COMPRESSION FRACTURE OF FIRST LUMB 03/25/2018 JOSEY RIDER DO Ot W19.XXXA UNSPECIFIED FALL, INITIAL ENCOUNTER 03/25/2018 JOSEY RIDER DO Ot Y99.8 OTHER EXTERNAL CAUSE STATUS 03/25/2018 ANAYELI DICKENS ANODIZING LINE OPERATOR Ot E78.4 OTHER HYPERLIPIDEMIA 03/25/2018 ANAYELI DICKENS ANODIZING LINE OPERATOR Ot I10 ESSENTIAL (PRIMARY) HYPERTENSION 03/25/2018 ANAYELI DICKENS ANODIZING LINE OPERATOR Ot I25.10 ATHSCL HEART DISEASE OF [place] CORONARY 03/25/2018 ANAYELI DICKENS ANODIZING LINE OPERATOR Ot I65.23 OCCLUSION AND STENOSIS OF BILATERAL NG 03/25/2018 JOSEY RIDER DO Ot N32.3 DIVERTICULUM OF BLADDER 03/25/2018 JOSEY RIDER DO Ot N32.89 OTHER SPECIFIED DISORDERS OF BLADDER 03/25/2018 ANAYELI DICKENS ANODIZING LINE OPERATOR Ot E78.4 OTHER HYPERLIPIDEMIA 03/25/2018 ANAYELI DICKENS ANODIZING LINE OPERATOR Ot I10 ESSENTIAL (PRIMARY) HYPERTENSION 03/25/2018 ANAYELI DICKENS ANODIZING LINE OPERATOR Ot I25.10 ATHSCL HEART DISEASE OF [place] CORONARY 03/25/2018 ANAYELI DICKENS L ANODIZING LINE OPERATOR Ot I34.0 NONRHEUMATIC MITRAL (VALVE) INSUFFICIENC 03/25/2018 ANAYELI DICKENS L ANODIZING LINE OPERATOR Ot I35.8 OTHER NONRHEUMATIC AORTIC VALVE DISORDER 03/25/2018 ANAYELI DICKENS L ANODIZING LINE OPERATOR Ot 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 03/25/2018 ANAYELI DICKENS L ANODIZING LINE OPERATOR Ot 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 03/25/2018 ANAYELI DICKENS L ANODIZING LINE OPERATOR Ot E34.0 CARCINOID SYNDROME 03/25/2018 ANAYELI DICKENS ANODIZING LINE OPERATOR Ot E78.4 OTHER HYPERLIPIDEMIA 03/25/2018 BAIANAYELI HURTADO L ANODIZING LINE OPERATOR Ot I10 ESSENTIAL (PRIMARY) HYPERTENSION 03/25/2018 ANAYELI DICKENS L ANODIZING LINE OPERATOR Ot I25.10 ATHSCL HEART DISEASE OF [place] CORONARY 03/25/2018 ANAYELI DICKENS L ANODIZING LINE OPERATOR Ot I34.0 NONRHEUMATIC MITRAL (VALVE) INSUFFICIENC 03/25/2018 BAIANAYELI HURTADO L ANODIZING LINE OPERATOR Ot I35.8 OTHER NONRHEUMATIC AORTIC VALVE DISORDER 03/25/2018 ANAYELI DICKENS L ANODIZING LINE OPERATOR Ot I65.23 OCCLUSION AND STENOSIS OF BILATERAL NG 03/25/2018 ANAYELI DICKENS ANODIZING LINE OPERATOR Ot E78.4 OTHER HYPERLIPIDEMIA 03/25/2018 ANAYELI DICKENS L ANODIZING LINE OPERATOR Ot I10 ESSENTIAL (PRIMARY) HYPERTENSION 03/25/2018 ANAYELI DICKENS ANODIZING LINE OPERATOR Ot I25.10 ATHSCL HEART DISEASE OF [place] CORONARY 03/25/2018 ANAYELI DICKENS L ANODIZING LINE OPERATOR Ot I34.0 NONRHEUMATIC MITRAL (VALVE) INSUFFICIENC 03/25/2018 ANAYELI DICKENS ANODIZING LINE OPERATOR Ot I35.8 OTHER NONRHEUMATIC AORTIC VALVE DISORDER 03/25/2018 ANAYELI DICKENS L ANODIZING LINE OPERATOR Ot I65.23 OCCLUSION AND STENOSIS OF BILATERAL [...] CCDS Ot I25.10 ATHSCL HEART DISEASE OF [place] CORONARY 03/25/2018 ABRAN MARCUM FACC, ALI FACP CCDS Ot I65.29 OCCLUSION AND STENOSIS OF UNSPECIFIED CA 03/25/2018 ABRAN HINOJOSAC, ALI FACP CCDS Ot Z72.0 TOBACCO USE 03/29/2018 ABRAN MARCUM FACC, ALI FACP CCDS Ot E11.9 TYPE 2 DIABETES MELLITUS WITHOUT COMPLIC 03/29/2018 ABRAN MARCUM FACC, ALI FACP CCDS Ot E78.5 HYPERLIPIDEMIA, UNSPECIFIED 03/29/2018 ABARN MARCUM FACC, ALI FACP CCDS Ot I10 ESSENTIAL (PRIMARY) HYPERTENSION 03/29/2018 ABRAN HINOJOSAC, ALI FACP CCDS Ot I25.10 ATHSCL HEART DISEASE OF [place] CORONARY 03/29/2018 ABRAN MARCUM FACC, ALI FACP CCDS Ot Z72.0 TOBACCO USE 04/03/2018 ABRAN MARCUM FACC, ALI FACP CCDS Ot E11.9 TYPE 2 DIABETES MELLITUS WITHOUT COMPLIC 04/03/2018 ABRAN MARCUM FACC, ALI FACP CCDS Ot E78.5 HYPERLIPIDEMIA, UNSPECIFIED 04/03/2018 ABRAN MARCUM FACC, ALI FACP CCDS Ot I10 ESSENTIAL (PRIMARY) HYPERTENSION 04/03/2018 ABRAN MARCUM FACC, ALI FACP CCDS Ot I25.10 ATHSCL HEART DISEASE OF [place] CORONARY 04/03/2018 ABRAN MARCUM FACC, ALI FACP CCDS Ot Z72.0 TOBACCO USE 04/13/2018 ABRAN MARCUM FACC, ALI FACP CCDS Ot E11.9 TYPE 2 DIABETES MELLITUS WITHOUT COMPLIC 04/13/2018 ABRAN MARCUM FACC, ALI FACP CCDS Ot E78.5 HYPERLIPIDEMIA, UNSPECIFIED 04/13/2018 ABRAN HINOJOSAC, ALI FACP CCDS Ot I10 ESSENTIAL (PRIMARY) HYPERTENSION 04/13/2018 ABRAN MARCUM FACC, ALI FACP CCDS Ot I25.10 ATHSCL HEART DISEASE OF [place] CORONARY 04/13/2018 ABRAN HINOJOSAC, ALI FACP CCDS [...] CCDS Ot I25.10 ATHSCL HEART DISEASE OF [place] CORONARY 04/21/2018 ABRAN MARCUM FACC, ALI FACP CCDS Ot Z72.0 TOBACCO USE 04/25/2018 JOSEY RIDER DO Ot I70.213 ATHSCL [place] ARTERIES OF EXTRM W INTRMT 04/25/2018 JOSEY RIDER DO Ot I70.213 ATHSCL [place] ARTERIES OF EXTRM W INTRMT 04/27/2018 JOSEY [...] CCDS Ot I25.10 ATHSCL HEART DISEASE OF [place] CORONARY 04/28/2018 [facility], ALI FACP CCDS Ot I65.29 OCCLUSION AND STENOSIS OF UNSPECIFIED CA 04/28/2018 [facility]BRAN [facility]ARC[facility], ALI FACP CCDS Ot Z72.0 TOBACCO USE 05/12/2018 [facility]BRAN [facility]ARC[facility], ALI FACP CCDS Ot E11.9 TYPE 2 DIABETES MELLITUS WITHOUT COMPLIC 05/12/2018 [facility]AN [facility], ALI FACP CCDS Ot E78.5 HYPERLIPIDEMIA, UNSPECIFIED 05/12/2018 [facility]BRAN [facility], ALI FACP CCDS Ot I10 ESSENTIAL (PRIMARY) HYPERTENSION 05/12/2018 [facility]AN [facility], ALI FACP CCDS Ot I25.10 ATHSCL HEART DISEASE OF [place] CORONARY 05/12/2018 [facility], ALI FACP CCDS Ot Z72.0 TOBACCO USE [...] INFECTION, SITE NOT SPECIF 06/16/2018 NATHANIEL MOFFETT MD Ot Z01.810 ENCOUNTER FOR PREPROCEDURAL CARDIOVASCUL 06/29/2018 KYMBERLY MENSAH, DAVID Q Ot L97.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 07/01/2018 NATHANIEL MOFFETT MD, Ot N39.0 URINARY TRACT INFECTION, SITE NOT SPECIF 07/01/2018 NATHANIEL MOFFETT MD, Ot Z01.818 ENCOUNTER FOR OTHER PREPROCEDURAL EXAMIN 07/04/2018 KYMBERLY MENSAH, DAVID Q Ot L03.116 CELLULITIS OF LEFT LOWER LIMB 07/06/2018 NATHANIEL MOFFETT MD, Ot N39.0 URINARY TRACT INFECTION, SITE NOT SPECIF 07/06/2018 NATHANIEL MOFFETT MD, Ot Z01.810 ENCOUNTER FOR PREPROCEDURAL CARDIOVASCUL 07/06/2018 PILY ENRIQUE MD Ot D62 ACUTE POSTHEMORRHAGIC ANEMIA 07/06/2018 PILY ENRIQUE MD Ot E11.51 TYPE 2 DIABETES W DIABETIC PERIPHERAL AN 07/06/2018 PILY ENRIQUE MD Ot E78.00 PURE HYPERCHOLESTEROLEMIA, UNSPECIFIED 07/06/2018 PILY ENRIQUE MD, Ot E78.5 HYPERLIPIDEMIA, UNSPECIFIED 07/06/2018 PILY ENRIQUE MD Ot F03.90 UNSPECIFIED DEMENTIA WITHOUT BEHAVIORAL 07/06/2018 PILY ENRIQUE MD Ot F17.210 NICOTINE DEPENDENCE, CIGARETTES, UNCOMPL 07/06/2018 PILY ENRIQUE MD, Ot I25.10 ATHSCL HEART DISEASE OF [place] CORONARY 07/06/2018 PILY ENRIQUE MD, Ot I25.2 OLD MYOCARDIAL INFARCTION 07/06/2018 PILY ENRIQUE MD Ot I65.23 OCCLUSION AND STENOSIS OF BILATERAL NG 07/06/2018 PILY ENRIQUE MD Ot I99.8 OTHER DISORDER OF CIRCULATORY SYSTEM 07/06/2018 PILY ENRIQUE MD, Ot J44.9 CHRONIC OBSTRUCTIVE PULMONARY DISEASE, U 07/06/2018 PILY ENRIQUE MD, Ot K21.9 GASTRO-ESOPHAGEAL REFLUX DISEASE WITHOUT 07/06/2018 PILY ENRIQUE MD, Ot K52.9 NONINFECTIVE GASTROENTERITIS AND COLITIS 07/06/2018 PILY ENRIQUE MD, Ot L97.909 NON-PRS CHRONIC ULC UNSP PRT OF UNSP LOW 07/06/2018 PILY ENRIQUE MD, Ot M19.91 PRIMARY OSTEOARTHRITIS, UNSPECIFIED SITE 07/06/2018 PILY ENRIQUE MD, Ot M81.0 AGE-RELATED OSTEOPOROSIS W/O CURRENT PAT 07/06/2018 PILY ENRIQUE MD, Ot R32 UNSPECIFIED URINARY INCONTINENCE 07/06/2018 PILY ENRIQUE MD, Ot S72.012A UNSP INTRACAPSULAR FRACTURE OF LEFT FEMU 07/06/2018 PILY ENRIQUE MD, Ot W19.XXXA UNSPECIFIED FALL, INITIAL ENCOUNTER 07/06/2018 PILY ENRIQUE MD, Ot Y92.[address] IN [facility] NON-INSTITUT (PRIVATE 07/06/2018 PILY ENRIQUE MD, Ot Z79.4 ACQUISITIONS EDITOR (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 07/06/2018 PILY ENRIQUE MD, Ot Z95.5 PRESENCE OF CORONARY ANGIOPLASTY IMPLANT 07/06/2018 PILY ENRIQUE MD Ot Z96.641 PRESENCE OF RIGHT ARTIFICIAL HIP JOINT 07/11/2018 KYMBERLY DPIndigo, DAVID Q Ot L03.116 CELLULITIS OF LEFT LOWER LIMB 07/11/2018 KYMBERLY DPIndigo DAVID Q Ot L97.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 07/13/2018 NATHANIEL MOFFETT MD Ot N39.0 URINARY TRACT INFECTION, SITE NOT SPECIF 07/13/2018 NATHANIEL MOFFETT MD Ot Z01.818 ENCOUNTER FOR OTHER PREPROCEDURAL EXAMIN Procedures Code Description Performed By Performed On 00.40 PROCEDURE ON SINGLE VESSEL 11/23/2011 38.12 HEAD NECK ENDARTER NEC 11/23/2011 [id number] REPLACE OF L HIP JT, FEMORAL WITH SYNTH 07/03/2018 Results Test Result Range Comprehensive metabolic panel [...] automated white blood cell (WBC) differential - 02/03/17 15:05 Blood leukocytes automated count (number/volume) 12.8 [...] erythrocyte count by microscopy (number/high power field) TNTC NRG Automated urine sediment leukocyte count by [...] culture - 04/08/17 08:35 Bacterial urine culture [id number] NRG COLONY COUNT >100,000/ML NRG FTX;REPORTABLE PLUS, [...] REPORT NRG COLONY COUNT . NRG Complete blood count (CBC) with automated white blood cell (WBC) differential - 07/03/18 16:30 Blood leukocytes automated count (number/volume) 17.0 10*3/uL 4.3-11.0 Blood erythrocytes automated count (number/volume) 6.49 10*6/uL 4.35-5.85 Venous blood hemoglobin measurement (mass/volume) 11.8 g/dL 11.5-16.0 Blood hematocrit (volume fraction) 38 % 35-52 Automated erythrocyte mean corpuscular volume 59 [foz_us] 80-99 Automated erythrocyte mean corpuscular hemoglobin (mass per erythrocyte) 18 pg 25-34 Automated erythrocyte mean corpuscular hemoglobin concentration measurement ( mass/volume) 31 g/dL 32-36 Automated erythrocyte distribution width ratio 25.4 % 10.0-14.5 Automated blood platelet count (count/volume) 485 10*3/uL 130-400 Automated blood platelet mean volume measurement 10.0 [foz_us] 7.4-10.4 Automated blood neutrophils/100 leukocytes 82 % 42-75 Automated blood lymphocytes/100 leukocytes 8 % 12-44 Blood monocytes/100 leukocytes 9 % 0-12 Automated blood eosinophils/100 leukocytes 1 % 0-10 Automated blood basophils/100 leukocytes 1 % 0-10 Blood neutrophils automated count (number/volume) 14.0 10*3 1.8-7.8 Blood lymphocytes automated count (number/volume) 1.3 10*3 1.0-4.0 Blood monocytes automated count (number/volume) 1.5 10*3 0.0-1.0 Automated eosinophil count 0.1 10*3/uL 0.0-0.3 Automated blood basophil count (count/volume) 0.1 10*3/uL 0.0-0.1 PT panel in platelet poor plasma by coagulation assay - 07/03/18 16:30 Prothrombin time (PT) in platelet poor plasma by coagulation assay 12.9 s 12.2-14.7 INR in platelet poor plasma or blood by coagulation assay 1.0 0.8-1.4 Activated partial thromboplastin time (aPTT) in platelet poor plasma bycoagulation assay - 07/03/18 16:30 Activated partial thromboplastin time (aPTT) in platelet poor plasma bycoagulation assay 29 s 24-35 Comprehensive metabolic panel - 07/03/18 16:30 Serum or plasma sodium measurement (moles/volume) 135 mmol/L 135-145 Serum or plasma potassium measurement (moles/volume) 4.3 mmol/L 3.6-5.0 Serum or plasma chloride measurement (moles/volume) 102 mmol/L 98-107 Carbon dioxide 22 mmol/L 21-32 Serum or plasma anion gap determination (moles/volume) 11 mmol/L 5-14 Serum or plasma urea nitrogen measurement (mass/volume) 14 mg/dL 7-18 Serum or plasma creatinine measurement (mass/volume) 0.72 mg/dL 0.60-1.30 Serum or plasma urea nitrogen/creatinine mass ratio 19 NRG Serum or plasma creatinine measurement with calculation of estimated glomerular filtration rate > NRG Serum or plasma glucose measurement (mass/volume) 171 mg/dL 70-105 Serum or plasma calcium measurement (mass/volume) 9.6 mg/dL 8.5-10.1 Serum or plasma total bilirubin measurement (mass/volume) 0.6 mg/dL 0.1-1.0 Serum or plasma alkaline phosphatase measurement (enzymatic activity/volume) 95 U/L 40-136 Serum or plasma aspartate aminotransferase measurement (enzymatic activity/ volume) 20 U/L 5-34 Serum or plasma alanine aminotransferase measurement (enzymatic activity/volume ) 17 U/L 0-55 Serum or plasma protein measurement (mass/volume) 7.4 g/dL 6.4-8.2 Serum or plasma albumin measurement (mass/volume) 4.3 g/dL 3.2-4.5 CALCIUM CORRECTED 9.4 mg/dL 8.5-10.1 Blood manual differential performed detection - 07/03/18 16:30 Blood monocytes/100 leukocytes 5 % NRG Manual blood segmented neutrophils/100 leukocytes 89 % NRG Blood band neutrophils/100 leukocytes 0 % NRG Manual blood lymphocytes/100 leukocytes 5 % NRG Manual eosinophils/100 leukocytes in nose 0 % NRG Manual blood basophils/100 leukocytes 1 % NRG Blood polychromasia detection by light microscopy SLIGHT NRG Blood anisocytosis detection by light microscopy MARKED NRG Blood hypochromia detection by light microscopy MARKED NRG Blood microcytes detection by light microscopy MARKED NRG Blood target cells detection by light microscopy SLIGHT NRG Blood spherocytes detection by light microscopy SLIGHT NRG Complete urinalysis with reflex to culture - 07/03/18 16:50 Urine color determination YELLOW NRG Urine clarity determination SLIGHTLY CLOUDY NRG Urine pH measurement by test strip 6.5 5-9 Specific gravity of urine by test [...] culture YES NRG Bacterial urine culture - 07/03/18 16:50 Bacterial urine culture SEE COMMEN NRG COLONY COUNT . NRG FTX;REPORTABLE PREDOMINANCE OF NRG Methicillin resistant Staphylococcus aureus (MRSA) screening culture - 18:04 Methicillin resistant Staphylococcus aureus (MRSA) screening culture NEG NRG RED CELLS LEUKO REDUCED AS1 - 07/03/18 18:08 RED CELLS LEUKO REDUCED AS1 NOT AVAILABLE NRG Blood type T Indirect antibody screen panel - 07/03/18 18:08 ABO+Rh group BP NRG Transfusion band number [id number] NRG Blood group antibody screen NEGATIVE NRG Capillary blood glucose measurement by glucometer (mass/volume) - 07/03/18 22: 12 Capillary blood glucose measurement by glucometer (mass/volume) 176 mg/dL 70-110 Capillary blood glucose measurement by glucometer (mass/volume) - 07/04/18 07: 55 Capillary blood glucose measurement by glucometer (mass/volume) 288 mg/dL 70-110 Complete blood count (CBC) with automated white blood cell (WBC) differential - 07/04/18 08:10 Blood leukocytes automated count (number/volume) 14.0 10*3/uL 4.3-11.0 Blood erythrocytes automated count (number/volume) 4.67 10*6/uL 4.35-5.85 Venous blood hemoglobin measurement (mass/volume) 8.4 g/dL 11.5-16.0 Blood hematocrit (volume fraction) 29 % 35-52 Automated erythrocyte mean corpuscular volume 62 [foz_us] 80-99 Automated erythrocyte mean corpuscular hemoglobin (mass per erythrocyte) 18 pg 25-34 Automated erythrocyte mean corpuscular hemoglobin concentration measurement ( mass/volume) 29 g/dL 32-36 Automated erythrocyte distribution width ratio 23.9 % 10.0-14.5 Automated blood platelet count (count/volume) 405 10*3/uL 130-400 Automated blood platelet mean volume measurement 9.9 [foz_us] 7.4-10.4 Automated blood neutrophils/100 leukocytes 80 % 42-75 Automated blood lymphocytes/100 leukocytes 9 % 12-44 Blood monocytes/100 leukocytes 11 % 0-12 Automated blood eosinophils/100 leukocytes 0 % 0-10 Automated blood basophils/100 leukocytes 0 % 0-10 Blood neutrophils automated count (number/volume) 11.2 10*3 1.8-7.8 Blood lymphocytes automated count (number/volume) 1.2 10*3 1.0-4.0 Blood monocytes automated count (number/volume) 1.6 10*3 0.0-1.0 Automated eosinophil count 0.0 10*3/uL 0.0-0.3 Automated blood basophil count (count/volume) 0.0 10*3/uL 0.0-0.1 Comprehensive metabolic panel - 07/04/18 08:10 Serum or plasma sodium measurement (moles/volume) 138 mmol/L 135-145 Serum or plasma potassium measurement (moles/volume) 4.6 mmol/L 3.6-5.0 Serum or plasma chloride measurement (moles/volume) 106 mmol/L 98-107 Carbon dioxide 21 mmol/L 21-32 Serum or plasma anion gap determination (moles/volume) 11 mmol/L 5-14 Serum or plasma urea nitrogen measurement (mass/volume) 17 mg/dL 7-18 Serum or plasma creatinine measurement (mass/volume) 0.84 mg/dL 0.60-1.30 Serum or plasma urea nitrogen/creatinine mass ratio 20 NRG Serum or plasma creatinine measurement with calculation of estimated glomerular filtration rate > NRG Serum or plasma glucose measurement (mass/volume) 265 mg/dL 70-105 Serum or plasma calcium measurement (mass/volume) 8.4 mg/dL 8.5-10.1 Serum or plasma total bilirubin measurement (mass/volume) 0.5 mg/dL 0.1-1.0 Serum or plasma alkaline phosphatase measurement (enzymatic activity/volume) 69 U/L 40-136 Serum or plasma aspartate aminotransferase measurement (enzymatic activity/ volume) 25 U/L 5-34 Serum or plasma alanine aminotransferase measurement (enzymatic activity/volume ) 14 U/L 0-55 Serum or plasma protein measurement (mass/volume) 5.7 g/dL 6.4-8.2 Serum or plasma albumin measurement (mass/volume) 3.4 g/dL 3.2-4.5 CALCIUM CORRECTED 8.9 mg/dL 8.5-10.1 Capillary blood glucose measurement by glucometer (mass/volume) - 07/04/18 11: 36 Capillary blood glucose measurement by glucometer (mass/volume) 323 mg/dL 70-110 Capillary blood glucose measurement by glucometer (mass/volume) - 07/04/18 15: 52 Capillary blood glucose measurement by glucometer (mass/volume) 442 mg/dL 70-110 Capillary blood glucose measurement by glucometer (mass/volume) - 07/04/18 20: 18 Capillary blood glucose measurement by glucometer (mass/volume) 400 mg/dL 70-110 Complete blood count (CBC) with automated white blood cell (WBC) differential - 07/05/18 05:20 Blood leukocytes automated count (number/volume) 12.1 10*3/uL 4.3-11.0 Blood erythrocytes automated count (number/volume) 4.34 10*6/uL 4.35-5.85 Venous blood hemoglobin measurement (mass/volume) 7.7 g/dL 11.5-16.0 Blood hematocrit (volume fraction) 27 % 35-52 Automated erythrocyte mean corpuscular volume 61 [foz_us] 80-99 Automated erythrocyte mean corpuscular hemoglobin (mass per erythrocyte) 18 pg 25-34 Automated erythrocyte mean corpuscular hemoglobin concentration measurement ( mass/volume) 29 g/dL 32-36 Automated erythrocyte distribution width ratio 23.5 % 10.0-14.5 Automated blood platelet count (count/volume) 333 10*3/uL 130-400 Automated blood platelet mean volume measurement 10.3 [foz_us] 7.4-10.4 Automated blood neutrophils/100 leukocytes 63 % 42-75 Automated blood lymphocytes/100 leukocytes 18 % 12-44 Blood monocytes/100 leukocytes 17 % 0-12 Automated blood eosinophils/100 leukocytes 2 % 0-10 Automated blood basophils/100 leukocytes 1 % 0-10 Blood neutrophils automated count (number/volume) 7.6 10*3 1.8-7.8 Blood lymphocytes automated count (number/volume) 2.2 10*3 1.0-4.0 Blood monocytes automated count (number/volume) 2.0 10*3 0.0-1.0 Automated eosinophil count 0.2 10*3/uL 0.0-0.3 Automated blood basophil count (count/volume) 0.1 10*3/uL 0.0-0.1 Whole blood basic metabolic panel - 07/05/18 05:20 Serum or plasma sodium measurement (moles/volume) 135 mmol/L 135-145 Serum or plasma potassium measurement (moles/volume) 4.2 mmol/L 3.6-5.0 Serum or plasma chloride measurement (moles/volume) 104 mmol/L 98-107 Carbon dioxide 22 mmol/L 21-32 Serum or plasma anion gap determination (moles/volume) 9 mmol/L 5-14 Serum or plasma urea nitrogen measurement (mass/volume) 14 mg/dL 7-18 Serum or plasma creatinine measurement (mass/volume) 0.71 mg/dL 0.60-1.30 Serum or plasma urea nitrogen/creatinine mass ratio 20 NRG Serum or plasma creatinine measurement with calculation of estimated glomerular filtration rate > NRG Serum or plasma glucose measurement (mass/volume) 163 mg/dL 70-105 Serum or plasma calcium measurement (mass/volume) 9.1 mg/dL 8.5-10.1 Capillary blood glucose measurement by glucometer (mass/volume) - 07/05/18 11: 34 Capillary blood glucose measurement by glucometer (mass/volume) 201 mg/dL 70-110 Capillary blood glucose measurement by glucometer (mass/volume) - 07/05/18 15: 55 Capillary blood glucose measurement by glucometer (mass/volume) 212 mg/dL 70-110 Capillary blood glucose measurement by glucometer (mass/volume) - 07/05/18 20: 00 Capillary blood glucose measurement by glucometer (mass/volume) 181 mg/dL 70-110 Whole blood basic metabolic panel - 07/06/18 04:55 Serum or plasma sodium measurement (moles/volume) 137 mmol/L 135-145 Serum or plasma potassium measurement (moles/volume) 4.1 mmol/L 3.6-5.0 Serum or plasma chloride measurement (moles/volume) 103 mmol/L 98-107 Carbon dioxide 23 mmol/L 21-32 Serum or plasma anion gap determination (moles/volume) 11 mmol/L 5-14 Serum or plasma urea nitrogen measurement (mass/volume) 8 mg/dL 7-18 Serum or plasma creatinine measurement (mass/volume) 0.55 mg/dL 0.60-1.30 Serum or plasma urea nitrogen/creatinine mass ratio 15 NRG Serum or plasma creatinine measurement with calculation of estimated glomerular filtration rate > NRG Serum or plasma glucose measurement (mass/volume) 66 mg/dL 70-105 Serum or plasma calcium measurement (mass/volume) 9.4 mg/dL 8.5-10.1 Automated blood complete blood count (hemogram) panel - 07/06/18 04:55 Blood leukocytes automated count (number/volume) 16.1 10*3/uL 4.3-11.0 Blood erythrocytes automated count (number/volume) 4.87 10*6/uL 4.35-5.85 Venous blood hemoglobin measurement (mass/volume) 9.6 g/dL 11.5-16.0 Blood hematocrit (volume fraction) 32 % 35-52 Automated erythrocyte mean corpuscular volume 65 [foz_us] 80-99 Automated erythrocyte mean corpuscular hemoglobin (mass per erythrocyte) 20 pg 25-34 Automated erythrocyte mean corpuscular hemoglobin concentration measurement ( mass/volume) 30 g/dL 32-36 Automated erythrocyte distribution width ratio 26.5 % 10.0-14.5 Automated blood platelet count (count/volume) 330 10*3/uL 130-400 Automated blood platelet mean volume measurement 10.4 [foz_us] 7.4-10.4 Capillary blood glucose measurement by glucometer (mass/volume) - 07/06/18 05: 17 Capillary blood glucose measurement by glucometer (mass/volume) 74 mg/dL 70-110 Capillary blood glucose measurement by glucometer (mass/volume) - 07/06/18 11: 39 Capillary blood glucose measurement by glucometer (mass/volume) 112 mg/dL 70-110 Gram stain microscopy - 07/17/18 22:27 Gram stain microscopy No bacteria seen NRG Bacteria identification in wound by culture - 07/17/18 22:27 Bacteria identification in wound by culture NSF NRG FREE TEXT EXTERNAL NO SUSCEPTIBILITIES SET UP NRG QUANTITY OF GROWTH Isolated NRG Encounters ACCT No. Visit Date/Time Discharge Status Pt. Type Provider Facility Loc./Unit Complaint [id number] 07/17/2018 22:15:00 07/17/2018 23:00:00 DIS Emergency YVETTE INFANTE [facility] ER SURGERY SITE [id number] 07/03/2018 17:00:00 07/06/2018 13:50:00 DIS Inpatient IVA MARCUM, PILY Sood [facility] 4TH L SUBCAPITOL HIP FX, CAD,TYPE2 DM,FALL,DEMENTIA [id number] 06/15/2018 08:12:00 06/15/2018 23:59:59 CLS Outpatient NATHANIEL MOFFETT MD [facility] LAB Z01.810,N39.0 [id number] 06/10/2018 07:57:00 06/10/2018 23:59:59 CLS Outpatient NATHANIEL MOFFETT MD [facility] LAB PREOPERATIVE CARDIOVASCULAR EXAM [id number] 06/09/2018 16:16:00 06/09/2018 23:59:59 CLS Outpatient KYMBERLY DPM, DAVID Q [facility] RAD CHRONIC ULCERATION TO THE LEFT 5TH METATARSAL HEAD [id number] 06/08/2018 10:35:00 06/08/2018 23:59:59 CLS Outpatient KYMBERLY DPM, DAVID Q [facility] LAB CELLULITIS LEFT FOOT [id number] 04/26/2018 08:55:00 04/26/2018 23:59:59 CLS Outpatient JOSEY RIDER DO [facility] RAD PAD OF LOWER EXTREMITIES [id number] 03/28/2018 08:14:00 03/28/2018 23:59:59 CLS Outpatient JOAQUÍN OSULLIVAN MD, FACC, FACP CCDS [facility] RT CAD,CAROTID ARTERY STENOSIS,HLD,HTN [id number] 03/22/2018 10:19:00 03/22/2018 23:59:59 CLS Outpatient JOAQUÍN OSULLIVAN MD, FACC, FACP CCDS [facility] CARD CAD,CAROTID ARTERY STENOSIS,HLD,HTN [id number] 08/25/2017 08:12:00 08/25/2017 23:59:59 CLS Outpatient JOSEY RIDER DO [facility] RAD RIGHT ARM PAIN/ SWELLING [id number] 08/09/2017 14:36:00 08/09/2017 23:59:59 CLS Preadmit JOSEY RIDER DO [facility] RAD BREAST ABNORMALITY [id number] 07/20/2017 10:20:00 07/20/2017 23:59:59 CLS Preadmit JOSEY RIDER DO [facility] RAD SCREENING Z12.31 [id number] 06/25/2017 10:41:00 06/25/2017 11:36:00 DIS Outpatient JOSEY RIDER DO [facility] REHAB COMP FX L1 S/P KYPHOPLASTY [id number] 05/31/2017 11:02:00 06/01/2017 00:01:00 DIS Outpatient JOSEY RIDER DO [facility] REHAB COMP FX L1 S/P KYPHOPLASTY [id number] 04/20/2017 09:00:00 04/20/2017 23:59:59 CLS Outpatient URI LEIVA MD [facility] LAB Z01.810 Z01.818 [id number] 04/08/2017 08:25:00 04/08/2017 23:59:59 CLS Outpatient URI LEIVA MD [facility] LAB N39.0,I65.23,Z01.818 [id number] 04/07/2017 12:45:00 04/07/2017 23:59:59 CLS [facility]1.0 [id number] 03/31/2017 10:14:00 03/31/2017 23:59:59 CLS Preadmit JOSEY R[facility] M81.0 [id number] 03/18/2017 10:16:00 03/18/2017 23:59:59 CLS Outpatient JOSEY RIDER DO [facility] RAD LUMBAR COMPRESSION FRACTURES [id number] 03/16/2017 07:30:00 03/16/2017 23:59:59 CLS Outpatient BAIANAYEIL HURTADOP [facility] CARD CAD [id number] 03/02/2017 07:42:00 03/02/2017 23:59:59 CLS Outpatient NICKANAYELI HURTADO [facility] CARD CAD [id number] 03/02/2017 08:20:00 03/02/2017 11:11:00 DIS Emergency LOYDA MCKEON MD [facility] ER FALL [id number] 02/24/2017 11:30:00 02/24/2017 23:59:59 CLS Outpatient CHRISSIEANAYELI Hilton COHN [facility] RAD CAROTID ARTERY STENOSIS,CAD [id number] 02/16/2017 07:51:00 02/16/2017 23:59:59 CLS Outpatient JOSEY RIDER DO [facility] RAD N39.0 EVALUATE FOR FISTULA [id number] 02/03/2017 18:02:00 02/05/2017 14:30:00 DIS Inpatient CARMEN RAMIREZ DO [facility] 4TH UTI W RESISTANCE,AMS, HYPONATREMIC,S/P KYPHOPLASTY [id number] 02/02/2017 10:24:00 02/02/2017 23:59:59 CLS Outpatient CHRISSIEANAYELI Hilton COHN [facility] LAB I25.10 [id number] 02/02/2017 11:10:00 02/02/2017 16:45:00 DIS Outpatient PRAKASH MOJICA MD [facility] SDC L1 COMPRESSION FRACTURE [id number] 01/29/2017 05:26:00 01/29/2017 10:38:00 DIS Outpatient PRAKASH MOJICA MD [facility] PREOP L1 COMPRESSION FRACTURE [id number] 01/28/2017 10:14:00 01/28/2017 23:59:59 CLS Outpatient JOSEY RIDER DO [facility] RAD FRACTURE L1 [id number] 01/26/2017 09:50:00 01/26/2017 23:59:59 CLS Outpatient JOSEY RIDER DO [facility] RAD COMPRESSION FX [id number] 01/14/2017 13:33:00 01/14/2017 16:54:00 DIS Emergency CONNOR MODI [facility] ER LOWER BACK PAIN-FALL [id number] 09/16/2016 00:16:00 09/16/2016 23:59:59 CLS Preadmit RIDER JOSEY [facility] LAB R19.7 [id number] 06/17/2016 13:44:00 09/15/2016 00:01:00 DIS Outpatient RIDER JOSEY [facility] LAB R19.7 [id number] 08/21/2016 08:28:00 08/21/2016 23:59:59 CLS Outpatient ANAYELI DICKENS [facility] LAB HLD,CAD,HTN [id number] 08/03/2016 12:54:00 08/03/2016 15:49:00 DIS Emergency KAYLIN DONIS [facility] ER FALL/LEFT HAND INJURY [id number] 07/20/2016 08:33:00 07/20/2016 23:59:59 CLS Outpatient RIDER JOSEY [facility] RAD F/U RIGHT BREAST DENSITY [id number] 04/09/2016 07:10:00 04/09/2016 23:59:59 CLS Outpatient ADRY BARRERAJOSEY [facility] RAD URINARY/FECAL INCONTINENCE [id number] 02/14/2016 08:03:00 02/14/2016 23:59:59 CLS Outpatient ANAYELI DICKENS [facility] LAB HLD,CAD [id number] 01/24/2016 08:38:00 01/24/2016 23:59:59 CLS Outpatient ADRY BARRERA JOSEY Kati [facility] RAD F/U [id number] 12/30/2015 11:13:00 12/30/2015 23:59:59 CLS Outpatient ANAYELI DICKENSP [facility] RAD CAROTID ARTERY STENOSIS [id number] 12/26/2015 07:55:00 12/26/2015 23:59:59 CLS Outpatient ANAYELI DICKENSP [facility] LAB CAROTID ARTERY STENOSIS,HLD [id number] 12/25/2015 08:37:00 12/25/2015 23:59:59 CLS Outpatient ANAYELI DICKENS 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 CAROTID ARTERY STENOSIS, HDL [id number] 12/03/2015 09:59:00 12/03/2015 14:45:00 DIS Emergency LAURIE MARCUM, RD Newman [facility] ER CHEST PAIN/FATIGUE UPPER LEG PAIN [id number] 08/05/2015 07:42:00 08/05/2015 23:59:59 CLS Outpatient JOSEY RIDER DO [facility] RAD ABNORMAL MAMMO [id number] 07/25/2015 08:25:00 07/25/2015 23:59:59 CLS Outpatient JOSEY RIDER DO [facility] RAD SCREENING [id number] 03/28/2015 06:02:00 03/28/2015 23:59:59 CLS Outpatient KYMBERLY DPM, DAVID Q [facility] CARD CHRONIC ULCER L 5TH METATARSAL [id number] 02/15/2015 11:20:00 02/15/2015 15:45:00 DIS Outpatient KYMBERLY DPM, DAVID [facility] BUNION [id number] 02/11/2015 07:53:00 02/11/2015 23:59:59 CLS Outpatient KYMBERLY DPM, DAVID Q [facility] PREOP BUNION [id number] 01/31/2015 06:00:00 01/31/2015 07:37:00 DIS Outpatient KYMBERLY DPM, DAVID Q [facility] BUNION LEFT FOOT [id number] 01/29/2015 07:28:00 01/29/2015 23:59:59 CLS Outpatient JOAQUÍN OSULLIVAN MD, FACC, FACP CCDS [facility] CARD CAD [id number] 01/25/2015 08:23:00 01/25/2015 23:59:59 CLS Outpatient JOAQUÍN OSULLIVAN MD, FACC, FACP CCDS [facility] CARD CAD [id number] 01/17/2015 12:02:00 01/17/2015 23:59:59 CLS Outpatient KYMBERLY DPM, DAVID Q [facility] PREOP BUNION LEFT FOOT [id number] 09/24/2014 21:57:00 09/25/2014 12:02:00 DIS Inpatient JOSEY RIDER DO [facility] 4TH HYPOGLYCEMIA [id number] 09/23/2014 11:46:00 09/23/2014 14:06:00 DIS Emergency 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 [facility] ER LOW BLOOD SUGAR [id number] 09/06/2014 09:10:00 09/06/2014 10:45:[address] SULLIVAN MD [facility] ER HYPOGLYCEMIA [id number] 08/01/2014 15:58:00 08/03/2014 10:15:00 DIS Inpatient JOSEY RIDER DO [facility] 4TH UNCONTROLLED DIABETES [id number] 06/27/2013 09:15:00 06/27/2013 23:59:59 CLS Outpatient JOSEY RIDER DO [facility] RAD SCREENING [id number] 05/29/2013 07:57:00 05/29/2013 10:45:[address] SULLIVAN MD [facility] ER POSS VAG ABSCESS [id number] 12/20/2012 11:53:00 12/20/2012 23:59:59 CLS Outpatient NEY ASTUDILLO FRUIT I FARMWORKER [facility] RAD PAIN AND SWELLING IN RT ANKLE [id number] 08/06/2014 16:39:00 Document Registration [id number] 08/06/2014 16:39:00 Document Registration [id number] 08/06/2014 16:39:00 Document Registration [id number] 08/06/2014 16:39:00 Document Registration [id number] 08/06/2014 16:39:00 Document Registration [id number] 08/06/2014 16:39:00 Document Registration [id number] 08/06/2014 16:39:00 Document Registration [id number] 07/17/2014 09:06:00 Document Registration [id number] 12/03/2011 09:20:00 Document Registration [id number] 11/16/2011 09:00:00 Document Registration [id number] 06/03/2011 09:07:00 Document Registration [id number] 10/02/2010 06:37:00 Document Registration [id number] 09/18/2010 10:27:00 Document Registration [id number] 06/24/2009 08:17:00 Document Registration [id number] 08/25/2017 10:15:00 08/25/2017 23:59:00 DIS Outpatient JOSEY RIDER [facility] 02/15/2015 11:23:52 ACT Document Registration
--- NOTE | 2018-07-20 16:01 | ED General ---
General Stated Complaint: LOW BODY TEMP Source of Information: EMS, Family Exam Limitations: No Limitations History of Present Illness Date Seen by Provider: Jul 20, 2018 Time Seen by Provider: 15:58 Initial Comments To ER per EMS from local intermediate with reports of low body temperature of 93.9 and unable to obtain oxygen saturation. Upon EMS arrival they were able to obtain oxygen saturation measured at 100% on her forehead as she has known peripheral vascular disease and a temperature of 97.9. Patient states she doesn 't feel well however. She is at the intermediate for recovery from left hip fracture that she sustained within the past 2 weeks. She was started on Keflex for a cellulitis left heel on 07/17/18. She has DO NOT RESUSCITATE paperwork with her. Timing/Duration: 1-2 Days Severity: Moderate Associated Systoms: Malaise Allergies and Home Medications Allergies Coded Allergies: No Known Drug Allergies (Unverified , 01/29/17) Home Medications Albuterol/Ipratropium 4 Gm Aero, 1 PUFF INH 0800,1130,1500,1830 PRN for IF UNABLE TO USE DUONEB, (Reported) Aspirin 81 Mg Tablet.dr, 81 MG PO DAILY, (Reported) Atorvastatin Calcium 80 Mg Tablet, 80 MG PO DAILY, (Reported) Canagliflozin 100 Mg Tablet, 100 MG PO DAILY, (Reported) Cephalexin 500 Mg Capsule, 500 MG PO BID Prescribed by: YVETTE INFANTE on 07/17/18 2306 Clopidogrel Bisulfate 75 Mg Tablet, 75 MG PO DAILY, (Reported) Cranberry Extract 500 Mg Tablet, 1,500 MG PO HS, (Reported) Cyanocobalamin 1,000 Mcg/Ml Inj, 1,000 MCG IJ OF MONTH, (Reported) Diclofenac Sodium 100 Gm Gel..gram., TOP BID PRN for ARTHRITIS PAIN, (Reported) APPLY TO RIGHT HAND Donepezil HCl 10 Mg Tablet, 10 MG PO HS, (Reported) Ergocalciferol (Vitamin D2) 50,000 Unit Capsule, 50,000 UNITS PO Mo, (Reported) Esomeprazole Magnesium 40 Mg Cap, 40 MG PO DAILY, (Reported) Glucagon,Human Recombinant 1 Mg Vial, 1 MG INJ UD PRN for BLOOD SUGAR, (Reported ) Hydrocodone Bit/Acetaminophen 1 Tab Tab, 1-2 TAB PO Q4H PRN for PAIN-MODERATE Prescribed by: BRENDA HERNANDEZ on 07/06/18 0900 Insulin Aspart 100 Unit/1 Ml Susp, SC AC, (Reported) BELOW 100 = 0 UNITS 100-130 = 2 UNITS 131-160 = 3 UNITS 161-190 = 4 UNITS 191 OR HIGHER = 5 UNITS Insulin Glargine,Hum.rec.anlog 100 Unit/1 Ml Vial, 23 UNIT SQ HS, (Reported) Ipratropium/Albuterol Sulfate 3 Ml Ampul.neb, 3 ML NEB 0800,1400,2000, (Reported ) L.acidoph & Paracasei,B.lactis 1 Each Capsule, 1 CAP PO DAILY, (Reported) Lorazepam 0.5 Mg Tablet, 0.25 MG PO DAILY, (Reported) TAKES 1/2 (0.5MG) TABLET Lorazepam 0.5 Mg Tablet, 1 MG PO HS, (Reported) TAKES 2 (0.5MG) TABLETS Magnesium Oxide 500 Mg Capsule, 500 MG PO DAILY, (Reported) Melatonin 10 Mg Tablet.er, 10 MG PO HS, (Reported) Pioglitazone HCl 15 Mg Tablet, 15 MG PO DAILY, (Reported) Venlafaxine HCl 150 Mg Cap.er.24h, 150 MG PO DAILY, (Reported) Patient Home Medication List Home Medication List Reviewed: Yes Review of Systems Review of Systems Constitutional: see HPI; No chills EENTM: see HPI Respiratory: no symptoms reported Cardiovascular: no symptoms reported Genitourinary: no symptoms reported Musculoskeletal: no symptoms reported Skin: no symptoms reported Psychiatric/Neurological: No Symptoms Reported Past Flpijgm-Tjqscf-Croopo Hx Patient Social History Type Used: Cigarettes 2nd Hand Smoke Exposure: No Recent Foreign Travel: No Contact w/Someone Who Travel: No Recent Hopitalizations: No Immunizations Up To Date Tetanus Booster (TDap): Unknown PED Vaccines UTD: No Date of Pneumonia Vaccine: Jan 08, 2014 Date of Influenza Vaccine: Mar 10, 2018 Seasonal Allergies Seasonal Allergies: No Past Medical History Surgeries: Yes (CAROTID, STENTS, KYPHOPLASTY, L HIP, R ANKLE) Appendectomy, Coronary Stent, Eye Surgery, 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, Joint Replacement, Orthopedic Respiratory: No Cardiac: Yes (STENTS 2001) Coronary Artery Disease, Heart Attack, High Cholesterol Neurological: Yes Dementia, TIA 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 Disorders: No Female 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 Disorders: Denies [employer] History: 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 Sexually Transmitted Disease: No HIV/AIDS: No Gastrointestinal: Yes Colitis, Gastroesophageal Reflux, Chronic Diarrhea Musculoskeletal: Yes (COMPR FX L1) Osteoporosis, Arthritis, Chronic Back Pain Endocrine: Yes Diabetes, Insulin dep Loss of Vision: Bilateral Hearing Impairment: Denies Cancer: No Psychosocial: Yes Anxiety Integumentary: No Recent Skin Changes Blood Disorders: No Adverse Reaction/Blood Tranf: No (N/A) Family Medical History Alzheimer's disease (dad) Arthritis (mom) Asthma (sister) Completed stroke (mom) Diabetes mellitus (mom) Fibrocystic disease of breast (sister) Hypercholesterolemia (mom) Hypertension (mom) Myocardial infarction (mom) Neoplasm Parkinson's disease Severe allergy (sister) No Family History of: AIDS Abdominal aortic aneurysm Delbert's disease Alcoholism Aphasia Cancer of mouth Cardiovascular disease Cataracts Colon cancer Congenital disease Congenital heart disease Coronary thrombosis Cystic fibrosis Deafness or hearing loss Dementia Drug abuse Dysphasia Gastroenteritis Glaucoma Headache disorder Infertility Kidney disease Not obtainable due to adoption Osteoporosis (breast cancer) Prostate cancer Psychosocial problem Respiratory disorder Seizure disorder Thyroid disease Visual disorder No Pertinent Family Hx Physical Exam Vital Signs Vital Signs - First Documented 07/20/18 15:45 Temp 96.8 Pulse 82 Resp 16 B/P (MAP) 101/46 (64) Pulse Ox 94 Capillary Refill : Height, Weight, BMI Height: 5'3.00" Weight: 125lbs. 0.0oz. 56.378948jd; 20.7 BMI Method:Estimated General Appearance: No Apparent Distress, WD/WN, Chronically ill, Other (alert , very dissatisfied with the idea that an IV had to be started and Watson catheter used for urine sample. Family is at the bedside and states "well sounds like she is back to herself") Eyes: Bilateral Eye Normal Inspection, Bilateral Eye PERRL, Bilateral Eye EOMI HEENT: PERRL/EOMI Neck: Full Range of Motion, Normal Inspection Gastrointestinal: Non Tender, Soft Neurologic/Psychiatric: Alert, Normal Mood/Affect Skin: Normal Color, Warm/Dry, Other (incision over the left lateral hip is clean dry and intact without drainage but there is some fluctuance to the posterior aspect of this which could be a hematoma. No erythema to suggest cellulitis.) Focused Exam Lactate Level 07/20/18 16:21: Lactic Acid Level Laboratory Tests Test 07/20/18 16:21 Progress/Results/Core Measures Suspected Sepsis SIRS Temperature: Pulse: Respiratory Rate: Laboratory Tests 07/20/18 16:21: White Blood Count 9.3 Blood Pressure / Mean: 07/20/18 16:21: Laboratory Tests 07/20/18 16:21: Platelet Count 601H Results/Orders Lab Results Laboratory Tests Test 07/20/18 15:53 07/20/18 16:21 Range/Units Urine Color YELLOW Urine Clarity VERY CLOUDY H Urine pH 6 5-9 Urine Specific Perkins 1.010 L 1.016-1.022 Urine Protein 3+ H NEGATIVE Urine Glucose (UA) 4+ H NEGATIVE Urine Ketones NEGATIVE NEGATIVE Urine Nitrite NEGATIVE NEGATIVE Urine Bilirubin NEGATIVE NEGATIVE Urine Urobilinogen NORMAL NORMAL MG/DL Urine Leukocyte Esterase 3+ H NEGATIVE Urine RBC (Auto) 5+ H NEGATIVE Urine RBC TNTC H /HPF Urine WBC TNTC H /HPF Urine Squamous Epithelial Cells 10-25 H /HPF Urine Crystals NONE /LPF Urine Bacteria MODERATE H /HPF Urine Casts NONE /LPF Urine Mucus NEGATIVE /LPF Urine Yeast LARGE H /HPF Urine Culture Indicated YES White Blood Count 9.3 4.3-11.0 10^3/uL Red Blood Count 5.10 4.35-5.85 10^6/uL Hemoglobin 9.8 L 11.5-16.0 G/DL Hematocrit 34 L 35-52 % Mean Corpuscular Volume 67 L 80-99 FL Mean Corpuscular Hemoglobin 19 L 25-34 PG Mean Corpuscular Hemoglobin Concent 29 L 32-36 G/DL Red Cell Distribution Width 30.0 H 10.0-14.5 % Platelet Count 601 H 130-400 10^3/uL Mean Platelet Volume 9.8 7.4-10.4 FL Neutrophils (%) (Auto) 58 42-75 % Lymphocytes (%) (Auto) 29 12-44 % Monocytes (%) (Auto) 11 0-12 % Eosinophils (%) (Auto) 1 0-10 % Basophils (%) (Auto) 1 0-10 % Neutrophils # (Auto) 5.4 1.8-7.8 X 10^3 Lymphocytes # (Auto) 2.7 1.0-4.0 X 10^3 Monocytes # (Auto) 1.0 0.0-1.0 X 10^3 Eosinophils # (Auto) 0.1 0.0-0.3 10^3/uL Basophils # (Auto) 0.1 0.0-0.1 10^3/uL My Orders Orders - ROBERT JAMISON APRN Cbc With Automated Diff (07/20/18 15:56) Comprehensive Metabolic Panel (07/20/18 15:56) Ua Culture If Indicated (07/20/18 15:56) Chest 1 View, Ap/Pa Only (07/20/18 15:56) Iv Heplock-Insert (Order) (07/20/18 15:56) Straight Cath (Urinary) (07/20/18 15:56) Urine Culture (07/20/18 15:53) Ns Iv 500 Ml (Sodium Chloride 0.9%) (07/20/18 16:30) Ceftriaxone For Iv Use (Rocephin For I (07/20/18 16:30) Fentanyl Injection (Sublimaze Injection (07/20/18 16:30) Ondansetron Injection (Zofran Injectio (07/20/18 16:30) Lactic Acid Analyzer (07/20/18 16:30) Medications Given in ED Current Medications Medications Dose Ordered Sig/Komal Route Start Time Stop Time Status Last Admin Dose Admin Ceftriaxone Sodium 1000 mg/ Sterile Water 10 ml @ 200 mls/hr ONCE ONCE IV 07/20/18 16:30 07/20/18 16:32 DC 07/20/18 16:44 200 MLS/HR Fentanyl Citrate 25 mcg ONCE PRN IVP 07/20/18 16:30 07/20/18 16:44 25 MCG Ondansetron HCl 4 mg ONCE ONCE IVP 07/20/18 16:30 07/20/18 16:32 DC 07/20/18 16:44 4 MG Vital Signs/I&O 07/20/18 15:45 Temp 96.8 Pulse 82 Resp 16 B/P (MAP) 101/46 (64) Pulse Ox 94 Capillary Refill : Departure Impression Primary Impression: Urinary tract infection Qualified Codes: N30.00 - Acute cystitis without hematuria Disposition: XFER SHT-TRM HOSP Condition: Stable Departure-Patient Inst. Decision time for Depature: 16:47 Referrals: JOSEY RIDER DO (PCP/Family) Primary Care Physician Patient Instructions: Urinary Tract Infection, Adult (DC) Add. Discharge Instructions: 1. Antibiotics as directed. Stop the Keflex. 2. Return to ER for any concerns 3. Follow-up with your doctor next week Scripts Cefdinir (Cefdinir) 300 Mg Capsule 300 MG PO BID, #14 CAP Prov: ROBERT JAMISON APRN 07/20/18 ROBERT JAMISON APRN Jul 20, 2018 16:00
[2018-07-20 16:02] LABS: BILIRUBIN,URINE NEGATIVE (NEGATIVE); CLARITY,URINE VERY CLOUDY; COLOR,URINE YELLOW; GLUCOSE, URINE (UA) 4+ (NEGATIVE); KETONES,URINE NEGATIVE (NEGATIVE); LEUKOCYTE ESTERASE ,URINE 3+ (NEGATIVE); NITRITE,URINE NEGATIVE (NEGATIVE); PH,URINE 6 (5-9); PROTEIN,URINE 3+ (NEGATIVE); UROBILINOGEN,URINE NORMAL (NORMAL)
[2018-07-20 16:12] LABS: RBC,URINE TNTC /HPF
[2018-07-20 16:13] LABS: BACTERIA,URINE MODERATE /HPF; WBC,URINE TNTC /HPF; YEAST,URINE LARGE /HPF
--- NOTE | 2018-07-20 16:28 | Diagnostic Imaging Report ---
Clinical indication: Patient with low body temperature. Exam: Portable chest x-ray upright view. Comparisons: Chest x-ray dated 06/14/2018. Portable chest x-ray dated 07/03/2018. Findings: Again seen is a vertically oriented opacity overlying the periphery of the right lung field which represents skinfold. There is no pneumothorax. There is slight increased mild right basilar atelectasis versus infiltrate. Remainder of the lungs are clear. There is no pleural effusion. Pulmonary vasculature and cardiac silhouette are within normal limits. There are degenerative spurs seen throughout the thoracic spine. Again seen is a partially visualized endovascular stent overlying the right side of the neck. Impression: 1: There is interval development of minimal right lung base atelectasis versus infiltrate. 2: The remainder of this exam is stable. 3: There is no right pneumothorax. Skin fold is again seen overlying the right hemithorax. Dictated by: Dictated on workstation # [id number]
[2018-07-20] MEDS ORDERED: fentaNYL INJECTION 100 MCG/2 ML AMP IVP PRN (16:30)
[2018-07-20] MEDS ORDERED: ONDANSETRON 4 MG/2 ML (SDV) Z0FRAN IVP ONE (16:30)
[2018-07-20] MEDS ORDERED: NS IV 500 ML 500 ML IV SCH (16:30)
[2018-07-20] MEDS ORDERED: cefTRIAXone FOR IV USE 1,000 MG in WATER (STERILE) FOR INJECTION 10 ML IV ONE (16:30)
[2018-07-20 16:39] LABS: BASOPHILS # (AUTO) 0.1 10^3/uL (0.0-0.1); BASOPHILS % (AUTO) 1 % (0-10); EOSINOPHILS # (AUTO) 0.1 10^3/uL (0.0-0.3); EOSINOPHILS % (AUTO) 1 % (0-10); HEMATOCRIT 34 % (35-52); HEMOGLOBIN 9.8 G/DL (11.5-16.0); LYMPHOCYTES # (AUTO) 2.7 X 10^3 (1.0-4.0); LYMPHOCYTES % (AUTO) 29 % (12-44); MEAN CORPUSCULAR HEMOGLOBIN 19 PG (25-34); MEAN CORPUSCULAR HGB CONC 29 G/DL (32-36); MEAN CORPUSCULAR VOLUME 67 FL (80-99); MEAN PLATELET VOLUME 9.8 FL (7.4-10.4); MONOCYTES % (AUTO) 11 % (0-12); NEUTROPHILS # (AUTO) 5.4 X 10^3 (1.8-7.8); NEUTROPHILS % (AUTO) 58 % (42-75); PLATELET COUNT 601 10^3/uL (130-400); WHITE BLOOD COUNT 9.3 10^3/uL (4.3-11.0)
[2018-07-20] MEDS ORDERED: CEFD300C3 PO (16:48)
[2018-07-20 17:00] LABS: ALANINE AMINOTRANSFERASE 17 U/L (0-55); ALBUMIN 3.2 GM/DL (3.2-4.5); ALKALINE PHOSPHATASE 88 U/L (40-136); BILIRUBIN,TOTAL 0.6 MG/DL (0.1-1.0); BUN/CREATININE RATIO 16; CALCIUM 8.4 MG/DL (8.5-10.1); CARBON DIOXIDE 27 MMOL/L (21-32); CHLORIDE 101 MMOL/L (98-107); CREATININE SERUM 0.63 MG/DL (0.60-1.30); GFR ESTIMATED > 60; GLUCOSE 130 MG/DL (70-105); POTASSIUM 4.3 MMOL/L (3.6-5.0); SODIUM 135 MMOL/L (135-145); TOTAL PROTEIN 6.2 GM/DL (6.4-8.2)
[2018-07-20] MEDS ORDERED: FLUCONAZOLE 150 MG TABLET (ED ONLY) PO ONE (17:00)
[2018-07-20 19:03] VITALS: BP 147/58
== END 2018-07-20 17:32 | disposition short-term general hospital (02) ==
LOC: EDUNIT# 15:45 → ER 15:46
DX: N39.0 Urinary tract infection, site not specified (principal); I73.9 Peripheral vascular disease, unspecified; I25.10 Atherosclerotic heart disease of native coronary artery without angina pectoris; I25.2 Old myocardial infarction; E78.00 Pure hypercholesterolemia, unspecified; F03.90 Unspecified dementia, unspecified severity, without behavioral disturbance, psychotic disturbance, mood disturbance, and anxiety; K21.9 Gastro-esophageal reflux disease without esophagitis; E11.9 Type 2 diabetes mellitus without complications; F41.9 Anxiety disorder, unspecified; M81.0 Age-related osteoporosis without current pathological fracture; Z87.19 Personal history of other diseases of the digestive system; Z86.73 Personal history of transient ischemic attack (TIA), and cerebral infarction without residual deficits; Z82.49 Family history of ischemic heart disease and other diseases of the circulatory system; Z79.4 Long term (current) use of insulin; Z79.51 Long term (current) use of inhaled steroids; Z79.82 Long term (current) use of aspirin; Z79.02 Long term (current) use of antithrombotics/antiplatelets; Z95.5 Presence of coronary angioplasty implant and graft; Z90.49 Acquired absence of other specified parts of digestive tract; Z90.710 Acquired absence of both cervix and uterus; Z98.890 Other specified postprocedural states
CPT/HCPCS: 36415; 71045; 80053; 81000; 83605; 85025; 87088

== ENCOUNTER 2018-07-22 03:56 | Emergency (ER) | payer MEDICARE, MEDICAID ==
[~2018-07-22] VITALS: Ht 170.2 cm; Wt 59.0 kg
[~2018-07-22 03:56] MED LIST changes: +CEFD300C3 PO
--- NOTE | 2018-07-22 04:08 | ED Fall/Injury ---
General Chief Complaint: Skin/Wound Problems Stated Complaint: LEFT HIP BLEEDING Source: patient Exam Limitations: no limitations History of Present Illness Date Seen by Provider: Jul 22, 2018 Time Seen by Provider: 03:58 Initial Comments The patient presents to ER by EMS from via [facility] with chief complaint of a fall. She denies striking her head or loss of consciousness. She had some pain in her left hip which showed about [address] Velásquez today hip fracture repair on. Yesterday she had some opening of the wound distally and seepage of serosanguineous drainage. After her fall she had some more discharge probably less than 50 cc per EMS. Staff had already applied Steri-Strips and gauze pressure dressing per orders from yesterday by orthopedic surgery. Patient denies any fevers chills dysuria cough shortness of breath chest pain abdominal pain nausea vomiting or diarrhea. The patient remarks she was having significant amount pain prior to her fall and her left hip. She had received a couple pain pills for coming out by EMS and says her pain is still a 9 out of 10. Patient has a history of diabetes. Poor wound healing with orders from yesterday to have the wound dressed with a pressure gauze and Steri-Strips. The patient's on Keflex right now for a UTI and Tamiflu for influenza. Allergies and Home Medications Allergies Coded Allergies: No Known Drug Allergies (Unverified , 01/29/17) Home Medications Albuterol/Ipratropium 4 Gm Aero, 1 PUFF INH 0800,1130,1500,1830 PRN for IF UNABLE TO USE DUONEB, (Reported) Aspirin 81 Mg Tablet.dr, 81 MG PO DAILY, (Reported) Atorvastatin Calcium 80 Mg Tablet, 80 MG PO DAILY, (Reported) Canagliflozin 100 Mg Tablet, 100 MG PO DAILY, (Reported) Cefdinir 300 Mg Capsule, 300 MG PO BID Prescribed by: ROBERT JAMISON on 07/20/18 1648 Cephalexin 500 Mg Capsule, 500 MG PO BID Prescribed by: YVETTE INFANTE on 07/17/18 2306 Clopidogrel Bisulfate 75 Mg Tablet, 75 MG PO DAILY, (Reported) Cranberry Extract 500 Mg Tablet, 1,500 MG PO HS, (Reported) Cyanocobalamin 1,000 Mcg/Ml Inj, 1,000 MCG IJ OF , (Reported) Diclofenac Sodium 100 Gm Gel..gram., TOP BID PRN for ARTHRITIS PAIN, (Reported) APPLY TO RIGHT HAND Donepezil HCl 10 Mg Tablet, 10 MG PO HS, (Reported) Ergocalciferol (Vitamin D2) 50,000 Unit Capsule, 50,000 UNITS PO Mo, (Reported) Esomeprazole Magnesium 40 Mg Cap, 40 MG PO DAILY, (Reported) Glucagon,Human Recombinant 1 Mg Vial, 1 MG INJ UD PRN for BLOOD SUGAR, (Reported ) Hydrocodone Bit/Acetaminophen 1 Tab Tab, 1-2 TAB PO Q4H PRN for PAIN-MODERATE Prescribed by: BRENDA HERNANDEZ on 07/06/18 0900 Insulin Aspart 100 Unit/1 Ml Susp, SC AC, (Reported) BELOW 100 = 0 UNITS 100-130 = 2 UNITS 131-160 = 3 UNITS 161-190 = 4 UNITS 191 OR HIGHER = 5 UNITS Insulin Glargine,Hum.rec.anlog 100 Unit/1 Ml Vial, 23 UNIT SQ HS, (Reported) Ipratropium/Albuterol Sulfate 3 Ml Ampul.neb, 3 ML NEB 0800,1400,1999, (Reported ) L.acidoph & Paracasei,B.lactis 1 Each Capsule, 1 CAP PO DAILY, (Reported) Lorazepam 0.5 Mg Tablet, 0.25 MG PO DAILY, (Reported) TAKES 1/2 (0.5MG) TABLET Lorazepam 0.5 Mg Tablet, 1 MG PO HS, (Reported) TAKES 2 (0.5MG) TABLETS Magnesium Oxide 500 Mg Capsule, 500 MG PO DAILY, (Reported) Melatonin 10 Mg Tablet.er, 10 MG PO HS, (Reported) Pioglitazone HCl 15 Mg Tablet, 15 MG PO DAILY, (Reported) Venlafaxine HCl 150 Mg Cap.er.24h, 150 MG PO DAILY, (Reported) Patient Home Medication List Home Medication List Reviewed: Yes Review of Systems Review of Systems Constitutional: No chills, No diaphoresis, No fever, No malaise Eyes: Denies Blindness, Denies Blurred Vision Ears, Nose, Mouth, Throat: denies ear pain, denies mouth pain Respiratory: No cough, No short of breath Cardiovascular: No chest pain, No edema Gastrointestinal: No abdominal pain, No constipation, No diarrhea, No nausea, No vomiting Genitourinary: No discharge, No dysuria Musculoskeletal: see HPI; No back pain; joint pain Past Wsxmvlm-Npmris-Uxlumc Hx Patient Social History Alcohol Use: Denies Use Recreational Drug Use: No Type Used: Cigarettes Former Smoker, Quit: Jun 14, 2018 2nd Hand Smoke Exposure: No Recent Foreign Travel: No Contact w/Someone Who Travel: No Recent Hopitalizations: Yes (JUL 03 2018: LEFT HIP REPLACEMENT) Immunizations Up To Date Tetanus Booster (TDap): Unknown PED Vaccines UTD: No Date of Pneumonia Vaccine: Jan 08, 2014 Date of Influenza Vaccine: Mar 10, 2018 Seasonal Allergies Seasonal Allergies: No Past Medical History Surgeries: Yes (CAROTID, STENTS, KYPHOPLASTY, L HIP, R ANKLE) Appendectomy, Coronary Stent, Eye Surgery, 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, Joint Replacement, Orthopedic Respiratory: No Cardiac: Yes (STENTS 2001) Coronary Artery Disease, Heart Attack, High Cholesterol Neurological: Yes Dementia, TIA 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 Disorders: No Female 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 Disorders: Denies 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: 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 Sexually Transmitted Disease: No HIV/AIDS: No Genitourinary: No Gastrointestinal: Yes Colitis, Gastroesophageal Reflux, Chronic Diarrhea Musculoskeletal: Yes (COMPR FX L1) Osteoporosis, Arthritis, Chronic Back Pain Endocrine: Yes Diabetes, Insulin dep HEENT: No Loss of Vision: Bilateral Hearing Impairment: Denies Cancer: No Psychosocial: Yes Anxiety Integumentary: No Recent Skin Changes Blood Disorders: No Adverse Reaction/Blood Tranf: No (N/A) Family Medical History Alzheimer's disease (dad) Arthritis (mom) Asthma (sister) Completed stroke (mom) Diabetes mellitus (mom) Fibrocystic disease of breast (sister) Hypercholesterolemia (mom) Hypertension (mom) Myocardial infarction (mom) Neoplasm Parkinson's disease Severe allergy (sister) No Family History of: AIDS Abdominal aortic aneurysm Delbert's disease Alcoholism Aphasia Cancer of mouth Cardiovascular disease Cataracts Colon cancer Congenital disease Congenital heart disease Coronary thrombosis Cystic fibrosis Deafness or hearing loss Dementia Drug abuse Dysphasia Gastroenteritis Glaucoma Headache disorder Infertility Kidney disease Not obtainable due to adoption Osteoporosis (breast cancer) Prostate cancer Psychosocial problem Respiratory disorder Seizure disorder Thyroid disease Visual disorder No Pertinent Family Hx Physical Exam Vital Signs Vital Signs - First Documented 07/22/18 03:56 Temp 97.3 Pulse 80 Resp 18 B/P (MAP) 188/97 (127) Pulse Ox 92 O2 Delivery Room Air Capillary Refill : Height, Weight, BMI Height: 5'7.00" Weight: 130lbs. 0.0oz. 58.379459nn; 20.7 BMI Method:Stated General Appearance: WD/WN, mild distress HEENT: PERRL/EOMI, TMs normal, pharynx normal, other (atraumatic head, negative for Alvarez sign or raccoon eyes) Neck: non-tender, full range of motion, supple, normal inspection Cardiovascular: normal peripheral pulses, regular rate, rhythm Respiratory: lungs clear, normal breath sounds, no respiratory distress, no accessory muscle use Peripheral Pulses: 2+ Dorsalis Pedis (R), 2+ Left Dors-Pedis (L) Gastrointestinal: non tender, soft Extremities: other (left leg surgical wound approximately the distal third is open nearly approximated and seeping a small amount of serosanguineous drainage without odor or purulence.) Neurologic/Psychiatric: alert, normal mood/affect, oriented x 3 Skin: normal color, warm/dry, other (open surgical wound left hip) [place] Coma Score Best Eye Response: (4) Open Spontaneously Best Verbal Response: (5) Oriented Best Motor Response: (6) Obeys Commands [place] Total: 15 Progress/Results/Core Measures Results/Orders Lab Results Laboratory Tests Test 07/22/18 04:15 Range/Units White Blood Count 9.9 4.3-11.0 10^3/uL Red Blood Count 4.93 4.35-5.85 10^6/uL Hemoglobin 9.7 L 11.5-16.0 G/DL Hematocrit 32 L 35-52 % Mean Corpuscular Volume 66 L 80-99 FL Mean Corpuscular Hemoglobin 20 L 25-34 PG Mean Corpuscular Hemoglobin Concent 30 L 32-36 G/DL Red Cell Distribution Width 30.1 H 10.0-14.5 % Platelet Count 705 H 130-400 10^3/uL Mean Platelet Volume 9.3 7.4-10.4 FL Neutrophils (%) (Auto) 64 42-75 % Lymphocytes (%) (Auto) 24 12-44 % Monocytes (%) (Auto) 10 0-12 % Eosinophils (%) (Auto) 2 0-10 % Basophils (%) (Auto) 1 0-10 % Neutrophils # (Auto) 6.4 1.8-7.8 X 10^3 Lymphocytes # (Auto) 2.3 1.0-4.0 X 10^3 Monocytes # (Auto) 1.0 0.0-1.0 X 10^3 Eosinophils # (Auto) 0.2 0.0-0.3 10^3/uL Basophils # (Auto) 0.1 0.0-0.1 10^3/uL Sodium Level 136 135-145 MMOL/L Potassium Level 4.5 3.6-5.0 MMOL/L Chloride Level 101 98-107 MMOL/L Carbon Dioxide Level 25 21-32 MMOL/L Anion Gap 10 5-14 MMOL/L Blood Urea Nitrogen 7 7-18 MG/DL Creatinine 0.62 0.60-1.30 MG/DL Estimat Glomerular Filtration Rate > 60 BUN/Creatinine Ratio 11 Glucose Level 121 H 70-105 MG/DL Calcium Level 8.5 8.5-10.1 MG/DL Corrected Calcium 9.2 8.5-10.1 MG/DL Total Bilirubin 0.5 0.1-1.0 MG/DL Aspartate Amino Transf (AST/SGOT) 22 5-34 U/L Alanine Aminotransferase (ALT/SGPT) 18 0-55 U/L Alkaline Phosphatase 97 40-136 U/L Total Protein 6.1 L 6.4-8.2 GM/DL Albumin 3.1 L 3.2-4.5 GM/DL My Orders Orders - LOYDA MCKEON Fentanyl Injection (Sublimaze Injection (07/22/18 04:15) Hip, Left, 2 Views (07/22/18 04:04) Ct Head/Cervical Spine Wo (07/22/18 04:05) Cbc With Automated Diff (07/22/18 04:05) Comprehensive Metabolic Panel (07/22/18 04:08) Medications Given in ED Current Medications Medications Dose Ordered Sig/Komal Route Start Time Stop Time Status Last Admin Dose Admin Fentanyl Citrate 50 mcg ONCE ONCE IM 07/22/18 04:15 07/22/18 04:16 DC 07/22/18 04:10 50 MCG Vital Signs/I&O 07/22/18 03:56 Temp 97.3 Pulse 80 Resp 18 B/P (MAP) 188/97 (127) Pulse Ox 92 O2 Delivery Room Air Progress Progress Note : Time: 04:[address] of the head and neck without contrast, plain film x-rays of the left hip. Intramuscular fentanyl 50 g. She did receive 2 tablets of 10 mg [place] before coming in which will take him probably in about half hour to an hour. Obtain some basic labs looking for anemia, evidence of infection and check her blood sugar on the CMP. She's currently being treated for a UTI on Keflex. Diagnostic Imaging Diagonstic Imaging: Xray Plain Films/CT/US/NM/MRI: hip (left two-view) Comments Prostheses appears to be in good position. No evidence of dislocation or new fracture. Reviewed: Reviewed by Me Diagonstic Imaging: CT (noncontrast) Plain Films/CT/US/NM/MRI: c-spine, head Comments No evidence of new intracranial bleed, mass effect, midline shift, tumor. No evidence of fracture or subluxation of the cervical spine. No acute intracranial hemorrhage. 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 Age-related cerebral volume loss and chronic small vessel ischemic disease. No acute fracture. Multilevel degenerative changes. Reviewed: Reviewed [place] Study, Reviewed by Me Departure Impression Primary Impression: Fall Qualified Codes: W19.XXXA - Unspecified fall, initial encounter Additional Impressions: Status post-operative repair of closed hip fracture Wound, surgical, nonhealing Qualified Codes: T81.89XA - Other complications of procedures, not elsewhere classified, initial encounter Disposition: HOME, SELF-CARE Condition: Stable Departure-Patient Inst. Decision time for Depature: 05:19 Referrals: URI VELÁSQUEZ MD, WILLIAM J DO (PCP/Family) Primary Care Physician Patient Instructions: Wound Care (DC) Add. Discharge Instructions: Keep the wound clean with regular soap and water. Steri-Strips and gauze dressings changed as often as necessary or at least daily. Today call the orthopedic surgeon. Discuss wound management by wound care. All discharge instructions reviewed with patient and/or family. Voiced understanding. Copy Copies To 1: URI VELÁSQUEZ MD, TITUS J Jul 22, 2018 04:07
[2018-07-22] MEDS ORDERED: fentaNYL INJECTION 100 MCG/2 ML AMP IM ONE (04:15)
[2018-07-22 04:23] LABS: BASOPHILS # (AUTO) 0.1 10^3/uL (0.0-0.1); BASOPHILS % (AUTO) 1 % (0-10); EOSINOPHILS # (AUTO) 0.2 10^3/uL (0.0-0.3); EOSINOPHILS % (AUTO) 2 % (0-10); HEMATOCRIT 32 % (35-52); HEMOGLOBIN 9.7 G/DL (11.5-16.0); LYMPHOCYTES # (AUTO) 2.3 X 10^3 (1.0-4.0); LYMPHOCYTES % (AUTO) 24 % (12-44); MEAN CORPUSCULAR HEMOGLOBIN 20 PG (25-34); MEAN CORPUSCULAR HGB CONC 30 G/DL (32-36); MEAN CORPUSCULAR VOLUME 66 FL (80-99); MEAN PLATELET VOLUME 9.3 FL (7.4-10.4); MONOCYTES % (AUTO) 10 % (0-12); NEUTROPHILS # (AUTO) 6.4 X 10^3 (1.8-7.8); NEUTROPHILS % (AUTO) 64 % (42-75); PLATELET COUNT 705 10^3/uL (130-400); RED CELL DISTRIBUTION WIDTH 30.1 % (10.0-14.5); WHITE BLOOD COUNT 9.9 10^3/uL (4.3-11.0)
[2018-07-22 04:41] LABS: ALANINE AMINOTRANSFERASE 18 U/L (0-55); ALBUMIN 3.1 GM/DL (3.2-4.5); ALKALINE PHOSPHATASE 97 U/L (40-136); BILIRUBIN,TOTAL 0.5 MG/DL (0.1-1.0); BUN/CREATININE RATIO 11; CALCIUM 8.5 MG/DL (8.5-10.1); CARBON DIOXIDE 25 MMOL/L (21-32); CHLORIDE 101 MMOL/L (98-107); CREATININE SERUM 0.62 MG/DL (0.60-1.30); GFR ESTIMATED > 60; GLUCOSE 121 MG/DL (70-105); POTASSIUM 4.5 MMOL/L (3.6-5.0); SODIUM 136 MMOL/L (135-145); TOTAL PROTEIN 6.1 GM/DL (6.4-8.2)
[2018-07-22 05:24] VITALS: BP 177/79
--- NOTE | 2018-07-22 08:11 | Diagnostic Imaging Report ---
PROCEDURE: CT head and CT cervical spine without contrast. TECHNIQUE: Multiple contiguous axial images were obtained through the brain and cervical spine without the use of intravenous contrast. Sagittal and coronal reformations through the cervical spine were then performed. INDICATION: Fall. Comparison is made with prior CT from 03/02/2017. CT brain: There are areas of encephalomalacia left frontal lobe and right posterior parietal lobe consistent with prior infarcts. Moderate periventricular hypodensity is seen consistent with chronic microvascular ischemia. No sulcal effacement or midline shift is identified. No acute intra-axial or extra-axial hemorrhage is seen. There appear to be old lacunar infarcts right caudate and left basal ganglia. Cisterns are patent. Visualized paranasal sinuses are clear. IMPRESSION: Chronic changes. No acute intracranial process is detected. CT cervical spine: Normal lordotic curvature is seen. There is some right convexity scoliotic curvature noted. Multilevel degenerative disc disease is noted, greatest at C5-6 and C6-7 levels, with disc space narrowing and marginal spurring. Prevertebral tissues are within normal limits. No fractures are seen. There appears to be a stent in the right carotid artery. IMPRESSION: Cervical spondylosis. No acute bony abnormality is detected. Dictated by: Dictated on workstation # [id number]
--- NOTE | 2018-07-22 08:16 | Diagnostic Imaging Report ---
Indication: Fall, left hip pain. Time of exam: 4:37 AM Two views of the left hip demonstrate a left hip prosthesis. Alignment is normal. No new fracture or evidence of hardware loosening is seen. There is some residual lucency in the region of the greater trochanter which was present on exam from 07/03/2018. Rami are intact. Impression: Stable postoperative left hip. Dictated by: Dictated on workstation # [id number]
== END 2018-07-22 05:25 | disposition home or self-care (01) ==
LOC: EDUNIT# 03:56 → ER 03:58
DX: T81.89XA Other complications of procedures, not elsewhere classified, initial encounter (principal); S72.002G Fracture of unspecified part of neck of left femur, subsequent encounter for closed fracture with delayed healing; E11.9 Type 2 diabetes mellitus without complications; I25.10 Atherosclerotic heart disease of native coronary artery without angina pectoris; I25.2 Old myocardial infarction; E78.00 Pure hypercholesterolemia, unspecified; F03.90 Unspecified dementia, unspecified severity, without behavioral disturbance, psychotic disturbance, mood disturbance, and anxiety; K21.9 Gastro-esophageal reflux disease without esophagitis; M81.0 Age-related osteoporosis without current pathological fracture; F41.9 Anxiety disorder, unspecified; R40.2142 Coma scale, eyes open, spontaneous, at arrival to emergency department; R40.2252 Coma scale, best verbal response, oriented, at arrival to emergency department; R40.2362 Coma scale, best motor response, obeys commands, at arrival to emergency department; Z82.49 Family history of ischemic heart disease and other diseases of the circulatory system; Z87.19 Personal history of other diseases of the digestive system; Z86.73 Personal history of transient ischemic attack (TIA), and cerebral infarction without residual deficits; Z87.440 Personal history of urinary (tract) infections; Z79.82 Long term (current) use of aspirin; Z79.51 Long term (current) use of inhaled steroids; Z79.02 Long term (current) use of antithrombotics/antiplatelets; Z79.4 Long term (current) use of insulin; Z87.891 Personal history of nicotine dependence; Z90.49 Acquired absence of other specified parts of digestive tract; Z98.890 Other specified postprocedural states; Z95.5 Presence of coronary angioplasty implant and graft; Z90.710 Acquired absence of both cervix and uterus; W19.XXXD Unspecified fall, subsequent encounter
CPT/HCPCS: 36415; 70450; 72125; 73502; 80053; 85025

== ENCOUNTER → 2018-07-23 | Outpatient (CLI) | payer MEDICARE, MEDICAID ==
[~2018-07-23] MED LIST changes: +CYPR4TAB41 PO; +FERR-65 PO; +SODI473S7 TOP; +VANC2PLA3 IV
[2018-07-23 10:18] LABS: BASOPHILS # (AUTO) 0.1 10^3/uL (0.0-0.1); BASOPHILS % (AUTO) 1 % (0-10); EOSINOPHILS # (AUTO) 0.1 10^3/uL (0.0-0.3); EOSINOPHILS % (AUTO) 1 % (0-10); HEMATOCRIT 34 % (35-52); HEMOGLOBIN 10.2 G/DL (11.5-16.0); LYMPHOCYTES # (AUTO) 1.9 X 10^3 (1.0-4.0); LYMPHOCYTES % (AUTO) 16 % (12-44); MEAN CORPUSCULAR HEMOGLOBIN 19 PG (25-34); MEAN CORPUSCULAR HGB CONC 30 G/DL (32-36); MEAN CORPUSCULAR VOLUME 65 FL (80-99); MEAN PLATELET VOLUME 9.6 FL (7.4-10.4); MONOCYTES # (AUTO) 1.1 X 10^3 (0.0-1.0); MONOCYTES % (AUTO) 9 % (0-12); NEUTROPHILS # (AUTO) 9.1 X 10^3 (1.8-7.8); NEUTROPHILS % (AUTO) 74 % (42-75); PLATELET COUNT 852 10^3/uL (130-400); RED CELL DISTRIBUTION WIDTH 30.1 % (10.0-14.5); WHITE BLOOD COUNT 12.3 10^3/uL (4.3-11.0)
--- NOTE | 2018-07-25 21:21 | Physician Query-Final Dx ---
ROWENA ACOSTA 07/25/18 2121: Clinic Account Progress/Dx Physician Query: Please give diagnosis Date of Service Jul 23, 2018 at 09:52 JOSEY RIDER DO 08/05/18 0826: ROWENA ACOSTA Jul 25, 2018 21:21 JOSEY RIDER DO Aug 05, 2018 08:26
== END ==
LOC: LAB 09:52
PROVIDERS: ATTEND Urology
DX: D64.9 Anemia, unspecified (principal)
CPT/HCPCS: 36415; 85025

== ENCOUNTER → 2018-07-25 | Outpatient (CLI) | payer MEDICARE, MEDICAID ==
[~2018-07-25] MED LIST changes: -CYPR4TAB41 PO; -FERR-65 PO; -SODI473S7 TOP; -VANC2PLA3 IV
--- NOTE | 2018-07-25 19:56 | Diagnostic Imaging Report ---
INDICATION: Diminished peripheral pulses. Segmental blood pressures and ankle-brachial indices are performed. Ankle-brachial index is 1.01 on the right side, based on dorsalis pedis only. There is no flow detected in the right posterior tibial artery. On the left side, ankle-brachial is 1.13. This is based on posterior tibial artery only, there is no flow visualized in the dorsalis pedis on the left side. Waveforms appear symmetric in the thigh, calf, and ankles on both sides, with diminished waveforms in the digital level on both sides. IMPRESSION: Ankle-brachial indices are normal although there is no flow in the posterior tibial artery on the right side or in the dorsalis pedis on the left side. Digital waveforms show degradation as above. Dictated by: Dictated on workstation # [id number]
== END ==
LOC: RAD 12:26
PROVIDERS: ATTEND Podiatrist Foot & Ankle Surgery
DX: R09.89 Other specified symptoms and signs involving the circulatory and respiratory systems (principal)
CPT/HCPCS: 93923

== ENCOUNTER 2018-08-05 10:04 | Inpatient (IN) | payer MEDICARE, MEDICAID ==
[~2018-08-05] VITALS: Ht 162.6 cm; Wt 56.4 kg
--- OUTSIDE RECORDS SUMMARY | 2018-08-05 10:16 | XMS REPORT | Continuity of Care Document ---
Author Author [facility] Organization [facility] Address Unknown Phone Unavailable Allergies Active Description Code Type Severity Reaction Onset Reported/Identified Relationship to Patient Clinical Status Yes No Known Drug Allergies [id number] Drug Allergy Unknown N/A 01/29/2017 Medications There [...] INFARCT 11/18/2011 Ot 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 [place] CORON 11/18/2011 Ot 433.10 CAROTID ARTERY OCCLUSION [...] NOS 11/24/2011 Ot 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 [place] CORON 11/24/2011 Ot 433.10 CAROTID ARTERY OCCLUSION [...] RIDER DO Ot 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 [place] CORON 08/03/2014 JOSEY RIDER DO Ot 443.9 [...] 793.82 08/06/2014 Ot V76.12 08/06/2014 NEY ASTUDILLO SALES MANAGEMENT INTERN Ot 719.07 08/06/2014 NEY ASTUDILLO SALES MANAGEMENT INTERN Ot 719.47 08/06/2014 JOSEY RIDER DO Ot [...] RIDER DO Ot 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 [place] CORON 09/25/2014 JSOEY RIDER DO Ot 530.81 ESOPHAGEAL REFLUX 09/25/2014 [...] ALI FACP CCDS Ot 414.9 02/14/2015 ABRAN MACRUM FACC, ALI FACP CCDS Ot 433.10 02/15/2015 KYMBERLY DPM, DAVID Q Ot M20.5X2 OTHER DEFORMITIES OF TOE(S) (ACQUIRED), 02/15/2015 KYMBERLY DPM, DAVID Q Ot M85.872 OTH DISRD OF BONE DENSITY AND STRUCTURE, 02/15/2015 KYMBERLY DPM, DAVID Q Ot Z79.899 OTHER USP (CURRENT) DRUG THERAPY 02/20/2015 ABRAN MARCUM FACC, [...] MD Ot I25.10 ATHSCL HEART DISEASE OF [place] CORONARY 12/03/2015 RD SULLIVAN MD Ot R07.9 CHEST PAIN, UNSPECIFIED 12/03/2015 RD SULLIVAN MD Ot Z95.5 PRESENCE OF CORONARY ANGIOPLASTY IMPLANT 12/04/2015 RD SULLIVAN MD Ot F17.210 NICOTINE DEPENDENCE, CIGARETTES, UNCOMPL 12/04/2015 RD SULLIVAN MD Ot I10 ESSENTIAL (PRIMARY) HYPERTENSION 12/04/2015 RD SULLIVAN MD Ot I25.10 ATHSCL HEART DISEASE OF [place] CORONARY 12/04/2015 RD SULLIVAN MD Ot R07.9 CHEST PAIN, UNSPECIFIED 12/04/2015 RD SULLIVAN MD T Ot Z95.5 PRESENCE OF CORONARY ANGIOPLASTY IMPLANT 12/05/2015 RD SULLIVAN MD Ot F17.210 NICOTINE DEPENDENCE, CIGARETTES, UNCOMPL 12/05/2015 RD SULLIVAN MD T Ot I10 ESSENTIAL (PRIMARY) HYPERTENSION 12/05/2015 RD SULLIVAN MD T Ot I25.10 ATHSCL HEART DISEASE OF [place] CORONARY 12/05/2015 RD SULLIVAN MD Ot R07.9 CHEST PAIN, UNSPECIFIED 12/05/2015 RD SULLIVAN MD Ot Z95.5 PRESENCE OF CORONARY ANGIOPLASTY IMPLANT 12/09/2015 RD SULLIVAN MD Ot F17.210 NICOTINE DEPENDENCE, CIGARETTES, UNCOMPL 12/09/2015 RD SULLIVAN MD Ot I10 ESSENTIAL (PRIMARY) HYPERTENSION 12/09/2015 RD SULLIVAN MD Ot I25.10 ATHSCL HEART DISEASE OF [place] CORONARY 12/09/2015 RD SULLIVAN MD Ot R07.9 CHEST PAIN, UNSPECIFIED 12/09/2015 RD SULLIVAN MD Ot Z95.5 PRESENCE OF CORONARY ANGIOPLASTY IMPLANT 12/26/2015 ANAYELI DICKENS 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 Ot Z53.9 PROCEDURE AND TREATMENT NOT CARRIED OUT, 12/26/2015 ANAYELI DICKENS 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 Ot E78.4 OTHER HYPERLIPIDEMIA 12/26/2015 NICKMAANAYELI L 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 Ot I65.23 OCCLUSION AND STENOSIS OF BILATERAL NG 01/17/2016 ANAYELI DICKENS L 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 Ot E78.4 OTHER HYPERLIPIDEMIA 01/17/2016 BAIMA ANAYELI L 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 Ot I65.23 OCCLUSION AND STENOSIS OF BILATERAL NG 01/24/2016 BAIMA, ANAYELI L 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 Ot I65.23 OCCLUSION AND STENOSIS OF BILATERAL NG 01/27/2016 JOSEY RIDER DO Ot R92.8 OTH ABN AND INCONCLUSIVE FINDINGS ON DX 01/27/2016 JOSEY RIDER DO Ot R92.8 OTH ABN AND INCONCLUSIVE FINDINGS ON DX 01/30/2016 ANAYELI DICKENS 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 Ot E78.4 OTHER HYPERLIPIDEMIA 01/30/2016 BAIMA ANAYELI L 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 Ot I65.23 OCCLUSION AND STENOSIS OF BILATERAL NG 02/04/2016 BAIMA ANAYELI L 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 Ot I65.23 OCCLUSION AND STENOSIS OF BILATERAL GN 02/05/2016 JOSEY RIDER DO Ot R92.8 OTH [...] NOS 02/14/2016 Ot 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 [place] CORON 02/14/2016 Ot 433.10 CAROTID ARTERY OCCLUSION [...] NEOPLASM OF [place] 02/14/2016 RIDINGS, NEY C SALES MANAGEMENT INTERN Ot 719.07 JOINT EFFUSION-ANKLE 02/14/2016 RIDINGS, NEY C SALES MANAGEMENT INTERN Ot 719.47 JOINT PAIN-ANKLE 02/14/2016 JOSEY RIDER [...] INCONCLUSIVE FINDINGS ON DX 02/14/2016 ANAYELI DICKENS 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 Ot I65.23 OCCLUSION AND STENOSIS OF BILATERAL NG 02/14/2016 ANAYELI DICKENS 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 Ot Z53.9 PROCEDURE AND TREATMENT NOT CARRIED OUT, 02/14/2016 ANAYELI DICKENS 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 Ot E78.4 OTHER HYPERLIPIDEMIA 02/14/2016 ANAYELI DICKENS 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 Ot I65.23 OCCLUSION AND STENOSIS OF BILATERAL NG 02/14/2016 JOSEY RIDER DO Ot R92.8 OTH ABN AND INCONCLUSIVE FINDINGS ON DX 02/18/2016 ANAYELI DICKENS 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 Ot E78.4 OTHER HYPERLIPIDEMIA 02/18/2016 ANAYELI DICKENS L 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 Ot I25.10 ATHSCL HEART DISEASE OF [place] CORONARY 03/06/2016 ANAYELI DICKENS 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 Ot E78.4 OTHER HYPERLIPIDEMIA 03/06/2016 ANAYELI DICKENS 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 Ot I25.10 ATHSCL HEART DISEASE OF [place] CORONARY 03/18/2016 ANAYELI DICKENS Hilton 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 Ot E78.4 OTHER HYPERLIPIDEMIA 03/18/2016 NICKANAYELI HURTADO Hilton 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 Ot I25.10 ATHSCL HEART DISEASE OF [place] CORONARY 04/10/2016 RIDERJOSEY DODSON DO J Ot [...] DONIS Ot I25.10 ATHSCL HEART DISEASE OF [place] CORONARY 08/03/2016 KAYLIN DONIS Ot S01.511A LACERATION WITHOUT FOREIGN BODY OF LIP, 08/03/2016 KAYLIN DONIS Ot S60.512A ABRASION OF LEFT HAND, INITIAL ENCOUNTER 08/03/2016 KAYLIN DONIS Ot W19.XXXA UNSPECIFIED FALL, INITIAL ENCOUNTER 08/03/2016 KAYLIN DONIS Ot Y99.8 OTHER EXTERNAL CAUSE STATUS 08/03/2016 KAYLIN DONIS Ot Z23 ENCOUNTER FOR IMMUNIZATION 08/03/2016 KAYLIN DONIS Ot Z79.4 USP (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 08/03/2016 KAYLIN DONIS Ot Z79.82 USP (CURRENT) USE OF ASPIRIN 08/03/2016 KAYLIN DONIS Ot Z79.899 OTHER CARDIOGRAPHER (CURRENT) DRUG THERAPY 08/03/2016 KAYLIN DONIS Ot Z95.5 PRESENCE OF CORONARY ANGIOPLASTY IMPLANT 08/03/2016 KAYLIN DONIS Ot Z96.641 PRESENCE OF RIGHT ARTIFICIAL HIP JOINT 08/11/2016 JOSEY RIDER DO Ot R92.8 OTH ABN AND INCONCLUSIVE FINDINGS ON DX 08/19/2016 JOSEY RIDER DO Ot R92.8 OTH ABN AND INCONCLUSIVE FINDINGS ON DX 08/25/2016 ANAYELI DICKENS 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 Ot E78.4 OTHER HYPERLIPIDEMIA 08/25/2016 ANAYELI DICKENS 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 Ot I10 ESSENTIAL (PRIMARY) HYPERTENSION 08/25/2016 BAIGENESIS ANAYELI L 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 Ot I25.10 ATHSCL HEART DISEASE OF [place] CORONARY 09/15/2016 JOSEY RIDER DO Ot R19.7 DIARRHEA, UNSPECIFIED 09/22/2016 BAIMA ANAYELI L 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 Ot E78.4 OTHER HYPERLIPIDEMIA 09/22/2016 BAIMA, ANAYELI L 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 Ot I10 ESSENTIAL (PRIMARY) HYPERTENSION 09/22/2016 BAIMAANNEANAYELI L 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 Ot I25.10 ATHSCL HEART DISEASE OF [place] CORONARY 09/28/2016 BAIMAANNEANAYELI L 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 Ot E78.4 OTHER HYPERLIPIDEMIA 09/28/2016 BAIMA, ANAYELI L 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 Ot I10 ESSENTIAL (PRIMARY) HYPERTENSION 09/28/2016 ANNE DICKENSHER L 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 Ot I25.10 ATHSCL HEART DISEASE OF [place] CORONARY 10/13/2016 KAYLIN DONIS Ot E11.9 TYPE 2 DIABETES MELLITUS WITHOUT COMPLIC 10/13/2016 KAYLIN DONIS Ot F17.210 NICOTINE DEPENDENCE, CIGARETTES, UNCOMPL 10/13/2016 KAYLIN DONIS Ot I25.10 ATHSCL HEART DISEASE OF [place] CORONARY 10/13/2016 KAYLIN DONIS Ot S01.511A LACERATION WITHOUT FOREIGN BODY OF LIP, 10/13/2016 KAYLIN DONIS Ot S60.512A ABRASION OF LEFT HAND, INITIAL ENCOUNTER 10/13/2016 KAYLIN DONIS Ot W19.XXXA UNSPECIFIED FALL, INITIAL ENCOUNTER 10/13/2016 KAYLIN DONIS Ot Y99.8 OTHER EXTERNAL CAUSE STATUS 10/13/2016 KAYLIN DONIS Ot Z23 ENCOUNTER FOR IMMUNIZATION 10/13/2016 KAYLIN DONIS Ot Z79.4 CARDIOGRAPHER (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 10/13/2016 KAYLIN DONIS Ot Z79.82 CARDIOGRAPHER (CURRENT) USE OF ASPIRIN 10/13/2016 KAYLIN DONIS Ot Z79.899 OTHER USP (CURRENT) DRUG THERAPY 10/13/2016 KYALIN DONIS Ot Z95.5 PRESENCE OF CORONARY ANGIOPLASTY IMPLANT 10/13/2016 KAYLIN DONIS Ot Z96.641 PRESENCE OF RIGHT ARTIFICIAL HIP JOINT 10/30/2016 KAYLIN DONIS Ot E11.9 TYPE 2 DIABETES MELLITUS WITHOUT COMPLIC 10/30/2016 KAYLIN DONIS Ot F17.210 NICOTINE DEPENDENCE, CIGARETTES, UNCOMPL 10/30/2016 KAYLIN DONIS Ot I25.10 ATHSCL HEART DISEASE OF [place] CORONARY 10/30/2016 KAYLIN DONIS Ot S01.511A LACERATION WITHOUT FOREIGN BODY OF LIP, 10/30/2016 KAYLIN DONIS Ot S60.512A ABRASION OF LEFT HAND, INITIAL ENCOUNTER 10/30/2016 KAYLIN DONIS Ot W19.XXXA UNSPECIFIED FALL, INITIAL ENCOUNTER 10/30/2016 KAYLIN DONIS Ot Y99.8 OTHER EXTERNAL CAUSE STATUS 10/30/2016 KAYLIN DONIS Ot Z23 ENCOUNTER FOR IMMUNIZATION 10/30/2016 KAYLIN DONIS Ot Z79.4 USP (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 10/30/2016 KAYLIN DONIS Ot Z79.82 CARDIOGRAPHER (CURRENT) USE OF ASPIRIN 10/30/2016 KAYLIN DOINS Ot Z79.899 OTHER CARDIOGRAPHER (CURRENT) DRUG THERAPY 10/30/2016 KAYLIN DONIS L Ot Z95.5 PRESENCE OF CORONARY ANGIOPLASTY IMPLANT 10/30/2016 KAYLIN DONIS L Ot Z96.641 PRESENCE OF RIGHT ARTIFICIAL HIP JOINT 01/14/2017 CONNOR MODI Ot E11.9 TYPE 2 DIABETES MELLITUS WITHOUT COMPLIC 01/14/2017 CONNOR MODIP Ot E78.00 PURE HYPERCHOLESTEROLEMIA, UNSPECIFIED 01/14/2017 CONNOR MODI Ot F41.9 ANXIETY DISORDER, UNSPECIFIED 01/14/2017 CONNOR MODIP Ot I25.10 ATHSCL HEART DISEASE OF [place] CORONARY 01/14/2017 CONNOR MODIP Ot I25.2 OLD [...] AND HIKING 01/14/2017 CONNOR MODIP Ot Z79.4 USP (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 01/14/2017 CONNOR MODIP Ot Z79.82 USP (CURRENT) USE OF ASPIRIN 01/14/2017 CONNOR MODIP [...] HOWARDP Ot I25.10 ATHSCL HEART DISEASE OF [place] CORONARY 01/18/2017 LY, CONNOR HOWARDP Ot I25.2 OLD MYOCARDIAL INFARCTION 01/18/2017 LY, CONNOR HOWARDP Ot K21.9 GASTRO-ESOPHAGEAL REFLUX DISEASE WITHOUT 01/18/2017 LYCONNOR Braswell 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 Ot M51.36 OTHER INTERVERTEBRAL DISC DEGENERATION, 01/18/2017 LY, CONNOR HOWARDP Ot M54.5 LOW BACK PAIN 01/18/2017 LY, CONNOR HOWARDP Ot S39.012A STRAIN OF MUSCLE, FASCIA AND TENDON OF L 01/18/2017 LYCONNOR Braswell 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 Ot W01.0XXA FALL SAME LEV FROM SLIP/TRIP W/O STRIKE 01/18/2017 LYCONNOR Braswell 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 Ot Y93.01 ACTIVITY, WALKING, MARCHING AND HIKING 01/18/2017 LYCONNOR Braswell 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 Ot Z79.4 CARDIOGRAPHER (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 01/18/2017 LYCONNOR Braswell 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 Ot Z79.82 USP (CURRENT) USE OF ASPIRIN 01/18/2017 LYCONNOR Braswell 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 Ot Z80.9 FAMILY HISTORY OF MALIGNANT NEOPLASM, UN 01/18/2017 LYCONNOR Braswell 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 Ot Z86.73 PRSNL HX OF TIA (TIA), AND CEREB INFRC W 01/18/2017 LY, CONNOR HOWARDP Ot Z87.19 PERSONAL HISTORY OF OTHER DISEASES OF TH 01/18/2017 LYCONNOR Braswell 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 Ot Z90.710 ACQUIRED ABSENCE OF BOTH CERVIX AND UTER 01/18/2017 LY, CONNOR HOWARDP Ot Z95.5 PRESENCE OF CORONARY ANGIOPLASTY IMPLANT 01/26/2017 Ot 250.00 DIAB JEFFY WO COMPL, TYPE II OR UNSPEC TY 01/26/2017 Ot 272.4 HYPERLIPIDEMIA NEC/NOS 01/26/2017 Ot 305.1 TOBACCO USE DISORDER 01/26/2017 Ot 401.9 HYPERTENSION NOS 01/26/2017 Ot 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 [place] CORON 01/26/2017 Ot 433.10 CAROTID ARTERY OCCLUSION [...] NEOPLASM OF [place] 01/26/2017 RIDINGS, NEY C SALES MANAGEMENT INTERN Ot 719.07 JOINT EFFUSION-ANKLE 01/26/2017 RIDINGS, NEY C SALES MANAGEMENT INTERN Ot 719.47 JOINT PAIN-ANKLE 01/26/2017 JOSEY RIEDR DO Ot V76.12 OTH SCREEN MAMMO-MALIGN NEOPLASM [...] INCONCLUSIVE FINDINGS ON DX 01/26/2017 ANAYELI DICKENS 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 Ot I65.23 OCCLUSION AND STENOSIS OF BILATERAL NG 01/26/2017 ANAYELI DICKENS 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 Ot Z53.9 PROCEDURE AND TREATMENT NOT CARRIED OUT, 01/26/2017 ANAYELI DICKENS 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 Ot E78.4 OTHER HYPERLIPIDEMIA 01/26/2017 ANAYELI DICKENS 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 Ot I65.23 OCCLUSION AND STENOSIS OF BILATERAL NG 01/26/2017 JOSEY RIDER DO Ot R92.8 OTH ABN AND INCONCLUSIVE FINDINGS ON DX 01/26/2017 ANAYELI DICKENS 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 Ot E78.4 OTHER HYPERLIPIDEMIA 01/26/2017 ANAYELI DICKENS 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 Ot I25.10 ATHSCL HEART DISEASE OF [place] CORONARY 01/26/2017 JOSEY RIDER DO Ot R15.9 FULL INCONTINENCE OF FECES 01/26/2017 JOSEY RIDER DO Ot R32 UNSPECIFIED URINARY INCONTINENCE 01/26/2017 JOSEY RIDER DO, Ot R92.8 OTH ABN AND INCONCLUSIVE FINDINGS ON DX 01/26/2017 ANAYELI DICKENS 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 Ot E78.4 OTHER HYPERLIPIDEMIA 01/26/2017 ANAYELI DICKENS 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 Ot I10 ESSENTIAL (PRIMARY) HYPERTENSION 01/26/2017 ANAYELI DICKENS 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 Ot I25.10 ATHSCL HEART DISEASE OF [place] CORONARY 01/29/2017 JOSEY RIDER DO Ot R19.7 [...] NOS 02/02/2017 Ot 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 [place] CORON 02/02/2017 Ot 433.10 CAROTID ARTERY OCCLUSION [...] MAMMO-MALIGN NEOPLASM OF [place] 02/02/2017 RIDINGSNEY C SALES MANAGEMENT INTERN Ot 719.07 JOINT EFFUSION-ANKLE 02/02/2017 RIDINGSNEY C SALES MANAGEMENT INTERN Ot 719.47 JOINT PAIN-ANKLE 02/02/2017 JOSEY RIDER [...] Ot E78.4 OTHER HYPERLIPIDEMIA 02/02/2017 ANAYELI DICKENS 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 Ot I65.23 OCCLUSION AND STENOSIS OF BILATERAL NG 02/02/2017 JOSEY RIDER DO Ot R92.8 OTH ABN AND INCONCLUSIVE FINDINGS ON DX 02/02/2017 CHRISSIE ANAYELIHER Hilton COHN Ot E78.4 OTHER HYPERLIPIDEMIA 02/02/2017 ANAYELI DICKENS Ot I25.10 ATHSCL HEART DISEASE OF [place] CORONARY 02/02/2017 JOSEY RIDER DO Ot R15.9 FULL INCONTINENCE OF FECES 02/02/2017 JOSEY RIDER DO Ot R32 UNSPECIFIED URINARY INCONTINENCE 02/02/2017 JOSEY RIDER DO Ot R92.8 OTH ABN AND INCONCLUSIVE FINDINGS ON DX 02/02/2017 ANAYELI DICKENS Ot E78.4 OTHER HYPERLIPIDEMIA 02/02/2017 ANAYELI DICKENS Ot I10 ESSENTIAL (PRIMARY) HYPERTENSION 02/02/2017 ANAYELI DICKENS Ot I25.10 ATHSCL HEART DISEASE OF [place] CORONARY 02/02/2017 JOSEY RIDER DO Ot M48.56XA [...] Z Ot I25.10 ATHSCL HEART DISEASE OF [place] CORONARY 02/02/2017 GALINA MARCUM PRAKASH Z Ot [...] 02/02/2017 KAMLESH MOJICA MDIQ Z Ot Z79.4 USP (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 02/02/2017 GALINA MARCUM PRAKASH Z Ot Z79.899 OTHER USP (CURRENT) DRUG THERAPY 02/02/2017 GALINA MARCUM PRAKASH Z Ot Z95.5 PRESENCE OF CORONARY ANGIOPLASTY IMPLANT 02/03/2017 JOSEY RIDER DO Ot S32.010A WEDGE COMPRESSION FRACTURE OF FIRST LUMB 02/03/2017 JOSEY RIDER DO Ot W19.XXXA UNSPECIFIED FALL, INITIAL ENCOUNTER 02/03/2017 JOSEY RIDRE DO Ot Y99.8 OTHER EXTERNAL CAUSE STATUS 02/03/2017 ANAYELI DICKENS Ot E78.4 OTHER HYPERLIPIDEMIA 02/03/2017 ANAYELI DICKENS 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 Ot I10 ESSENTIAL (PRIMARY) HYPERTENSION 02/03/2017 ANAYELI DICKENS Ot I25.10 ATHSCL HEART DISEASE OF [place] CORONARY 02/03/2017 ANAYELI DICKENSP Ot I65.23 OCCLUSION [...] Z Ot I25.10 ATHSCL HEART DISEASE OF [place] CORONARY 02/04/2017 GALINA MARCUM PRAKASH Z Ot K21.9 GASTRO-ESOPHAGEAL REFLUX DISEASE WITHOUT 02/04/2017 GALINA MARCUM PRAKASH Z Ot S32.010A WEDGE COMPRESSION FRACTURE OF FIRST LUMB 02/04/2017 GALINA MARCUM PRAKASH Z Ot X58.XXXA EXPOSURE TO OTHER SPECIFIED FACTORS, INI 02/04/2017 GALINA MARCUM PRAKASH Z Ot Y99.8 OTHER EXTERNAL CAUSE STATUS 02/04/2017 GALINA MARCUM PRAKASH Z Ot Z79.4 CARDIOGRAPHER (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 02/04/2017 GALINA MARCUM PRAKASH Z Ot Z79.899 OTHER USP (CURRENT) DRUG THERAPY 02/04/2017 GALINA MARCUM PRAKASH Z Ot Z95.5 PRESENCE OF CORONARY ANGIOPLASTY IMPLANT 02/04/2017 CARMEN RAMIREZ DO Ot N39.0 URINARY TRACT INFECTION, SITE NOT SPECIF 02/05/2017 ANAYELI DICKENS 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 Ot E78.4 OTHER HYPERLIPIDEMIA 02/05/2017 ANAYELI DICKENS 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 Ot I10 ESSENTIAL (PRIMARY) HYPERTENSION 02/05/2017 ANAYELI DICKENS 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 Ot I25.10 ATHSCL HEART DISEASE OF [place] CORONARY 02/05/2017 ANAYELI DICKENS 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 Ot I65.23 OCCLUSION AND STENOSIS OF BILATERAL [...] DOI Ot I25.10 ATHSCL HEART DISEASE OF [place] CORONARY 02/05/2017 YANELY RAMIREZ DOI Ot I25.2 [...] ANTIMICROBIAL 02/05/2017 YANELY RAMIREZ DOI Ot Z79.4 CARDIOGRAPHER (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 02/05/2017 YANELY RAMIREZ DOI Ot Z79.891 CARDIOGRAPHER (CURRENT) USE OF OPIATE ANALGE 02/05/2017 YANELY [...] Z Ot I25.10 ATHSCL HEART DISEASE OF [place] CORONARY 02/11/2017 GALINA MARCUM PRAKASH Z Ot K21.9 GASTRO-ESOPHAGEAL REFLUX DISEASE WITHOUT 02/11/2017 GALINA MARCUM PRAKASH Z Ot S32.010A WEDGE COMPRESSION FRACTURE OF FIRST LUMB 02/11/2017 GALINA MARCUM PRAKASH Z Ot X58.XXXA EXPOSURE TO OTHER SPECIFIED FACTORS, INI 02/11/2017 GALINA MARCUM PRAKASH Z Ot Y99.8 OTHER EXTERNAL CAUSE STATUS 02/11/2017 GALINA MARCUM PRAKASH Z Ot Z79.4 USP (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 02/11/2017 GALINA MARCUM PRAKASH Z Ot Z79.899 OTHER CARDIOGRAPHER (CURRENT) DRUG THERAPY 02/11/2017 GALINA MARCUM PRAKASH [...] Z Ot I25.10 ATHSCL HEART DISEASE OF [place] CORONARY 02/17/2017 GALINA MARCUM PRAKASH Z Ot K21.9 GASTRO-ESOPHAGEAL REFLUX DISEASE WITHOUT 02/17/2017 GALINA MARCUM PRAKASH Z Ot S32.010A WEDGE COMPRESSION FRACTURE OF FIRST LUMB 02/17/2017 GALINA MARCUM PRAKASH Z Ot X58.XXXA EXPOSURE TO OTHER SPECIFIED FACTORS, INI 02/17/2017 KAMLESH MOJICA MDIQ Z Ot Y99.8 OTHER EXTERNAL CAUSE STATUS 02/17/2017 GALINA MARCUM PRAKASH Z Ot Z79.4 CARDIOGRAPHER (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 02/17/2017 GALINA MARCUM PRAKASH Z Ot Z79.899 OTHER USP (CURRENT) DRUG THERAPY 02/17/2017 GALINA MARCUM PRAKASH [...] Ot E78.4 OTHER HYPERLIPIDEMIA 02/23/2017 BAIMAANAYELI L 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 Ot I10 ESSENTIAL (PRIMARY) HYPERTENSION 02/23/2017 BAIMAANAYELI L 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 Ot I25.10 ATHSCL HEART DISEASE OF [place] CORONARY 02/23/2017 BAIMAANAYELI L 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 Ot I65.23 OCCLUSION AND STENOSIS OF BILATERAL NG 02/25/2017 BAIMAANAYELI L 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 Ot E78.4 OTHER HYPERLIPIDEMIA 02/25/2017 BAIMA ANAYELI L 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 Ot I10 ESSENTIAL (PRIMARY) HYPERTENSION 02/25/2017 BAIMA ANAYELI L 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 Ot I25.10 ATHSCL HEART DISEASE OF [place] CORONARY 02/25/2017 BAIMAANNEANAYELI L 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 Ot I34.0 NONRHEUMATIC MITRAL (VALVE) INSUFFICIENC 02/25/2017 BAIMAANNEANAYELI L 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 Ot I35.8 OTHER NONRHEUMATIC AORTIC VALVE DISORDER 02/25/2017 BAIMAANAYELI L 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 Ot 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 02/25/2017 BAIMAANNEANAYELI L 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 Ot I65.21 OCCLUSION AND STENOSIS OF RIGHT [...] MD Ot I25.10 ATHSCL HEART DISEASE OF [place] CORONARY 03/02/2017 LOYDA MCKEON MD Ot I25.2 [...] ENCOUNTER 03/02/2017 LOYDA MCKEON MD, Ot Z79.4 USP (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 03/02/2017 LOYDA MCKEON MD, Ot Z79.82 USP (CURRENT) USE OF ASPIRIN 03/02/2017 LOYDA MCKEON [...] DICKENS Ot I25.10 ATHSCL HEART DISEASE OF [place] CORONARY 03/03/2017 ANAYELI DICKENS Ot I65.23 OCCLUSION [...] DICKENS Ot I25.10 ATHSCL HEART DISEASE OF [place] CORONARY 03/18/2017 ANAYELI DICKENS Ot I34.0 NONRHEUMATIC [...] NOS 03/31/2017 Ot 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 [place] CORON 03/31/2017 Ot 433.10 CAROTID ARTERY OCCLUSION [...] MAMMO-MALIGN NEOPLASM OF [place] 03/31/2017 NEY ASTUDILLO SALES MANAGEMENT INTERN Ot 719.07 JOINT EFFUSION-ANKLE 03/31/2017 NEY ASTUDILLO SALES MANAGEMENT INTERN Ot 719.47 JOINT PAIN-ANKLE 03/31/2017 JOSEY RIDER [...] DICKENS Ot I25.10 ATHSCL HEART DISEASE OF [place] CORONARY 03/31/2017 JOESY RIDER DO Ot R15.9 FULL INCONTINENCE OF FECES 03/31/2017 JOSEY RIDER DO Ot R32 UNSPECIFIED URINARY INCONTINENCE 03/31/2017 JOSEY RIDER DO, Ot R92.8 OTH ABN AND INCONCLUSIVE FINDINGS ON DX 03/31/2017 ANAYELI DICKENS Ot E78.4 OTHER HYPERLIPIDEMIA 03/31/2017 ANAYELI DICKENS Ot I10 ESSENTIAL (PRIMARY) HYPERTENSION 03/31/2017 ANAYELI DICKENS Ot I25.10 ATHSCL HEART DISEASE OF [place] CORONARY 03/31/2017 JOSEY RIDER DO Ot M48.56XA [...] DICKENS Ot I25.10 ATHSCL HEART DISEASE OF [place] CORONARY 03/31/2017 ANAYELI DICKENS Ot I65.23 OCCLUSION [...] FOR COND O 03/31/2017 ANAYELI DICKENS L 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 Ot E78.4 OTHER HYPERLIPIDEMIA 03/31/2017 BAIMA ANAYELI L 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 Ot I10 ESSENTIAL (PRIMARY) HYPERTENSION 03/31/2017 BAIMA ANAYELI L 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 Ot I25.10 ATHSCL HEART DISEASE OF [place] CORONARY 03/31/2017 BAIMA ANAYELI L 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 Ot I34.0 NONRHEUMATIC MITRAL (VALVE) INSUFFICIENC 03/31/2017 BAIMA ANAYELI L 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 Ot I35.8 OTHER NONRHEUMATIC AORTIC VALVE DISORDER 03/31/2017 BAIMAANNEANAYELI L 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 Ot 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 03/31/2017 BAIMA ANAYELI L 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 Ot 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 03/31/2017 BAIMA ANAYELI L 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 Ot E34.0 CARCINOID SYNDROME 03/31/2017 BAIMA ANAYELI L 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 Ot E78.4 OTHER HYPERLIPIDEMIA 03/31/2017 BAIMA, ANAYELI L 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 Ot I10 ESSENTIAL (PRIMARY) HYPERTENSION 03/31/2017 BAIMA ANAYELI L 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 Ot I25.10 ATHSCL HEART DISEASE OF [place] CORONARY 03/31/2017 BAIMA ANAYELI L 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 Ot I34.0 NONRHEUMATIC MITRAL (VALVE) INSUFFICIENC 03/31/2017 BAIMA ANAYELI L 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 Ot I35.8 OTHER NONRHEUMATIC AORTIC VALVE DISORDER 03/31/2017 BAIMA, ANAYELI L 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 Ot I65.23 OCCLUSION AND STENOSIS OF BILATERAL NG 03/31/2017 BAIMA ANAYELI L 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 Ot E78.4 OTHER HYPERLIPIDEMIA 03/31/2017 BAIMA, ANAYELI L 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 Ot I10 ESSENTIAL (PRIMARY) HYPERTENSION 03/31/2017 BAIMA ANAYELI L 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 Ot I25.10 ATHSCL HEART DISEASE OF [place] CORONARY 03/31/2017 BAIMA ANAYELI L 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 Ot I34.0 NONRHEUMATIC MITRAL (VALVE) INSUFFICIENC 03/31/2017 BAIMA, ANAYELI L 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 Ot I35.8 OTHER NONRHEUMATIC AORTIC VALVE DISORDER 03/31/2017 BAIMA, ANAYELI L 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 Ot I65.23 OCCLUSION AND STENOSIS OF BILATERAL [...] Z Ot I25.10 ATHSCL HEART DISEASE OF [place] CORONARY 04/02/2017 GALINA MARCUM PRAKASH Z Ot K21.9 GASTRO-ESOPHAGEAL REFLUX DISEASE WITHOUT 04/02/2017 GALINA MARCUM PRAKASH Z Ot S32.010A WEDGE COMPRESSION FRACTURE OF FIRST LUMB 04/02/2017 GALINA MARCUM PRAKASH Z Ot X58.XXXA EXPOSURE TO OTHER SPECIFIED FACTORS, INI 04/02/2017 GALINA MARCUM PRAKASH Z Ot Y99.8 OTHER EXTERNAL CAUSE STATUS 04/02/2017 GALINA MARCUM PRAKASH Z Ot Z79.4 CARDIOGRAPHER (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 04/02/2017 GALNIA MARCUM PRAKASH Z Ot Z79.899 OTHER CARDIOGRAPHER (CURRENT) DRUG THERAPY 04/02/2017 GALINA MARCUM PRAKASH Z Ot Z95.5 PRESENCE OF CORONARY ANGIOPLASTY IMPLANT 04/02/2017 JOSEY RIDER DO Ot S32.010D WEDGE COMPRSN FX FIRST LUM VERT, SUBS FO 04/02/2017 JOSEY RIDER DO Ot Z09 ENCNTR FOR F/U EXAM AFT TRTMT FOR COND O 04/05/2017 JOSEY RIDER DO Ot M81.0 AGE-RELATED OSTEOPOROSIS W/O CURRENT PAT 04/06/2017 BAIMA, ANAYELI L 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 Ot E78.4 OTHER HYPERLIPIDEMIA 04/06/2017 ANAYELI DICKENS L 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 Ot I10 ESSENTIAL (PRIMARY) HYPERTENSION 04/06/2017 ANAYELI DICKENS 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 Ot I25.10 ATHSCL HEART DISEASE OF [place] CORONARY 04/06/2017 ANAYELI DICKENS 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 Ot I34.0 NONRHEUMATIC MITRAL (VALVE) INSUFFICIENC 04/06/2017 ANAYELI DICKENS 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 Ot I35.8 OTHER NONRHEUMATIC AORTIC VALVE DISORDER 04/06/2017 ANAYELI DICKENS L 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 Ot 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 04/06/2017 CHRISSIEANAYELI L 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 Ot 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 04/06/2017 JOSEY RIDER DO, Ot S32.010D WEDGE COMPRSN FX FIRST LUM VERT, SUBS FO 04/06/2017 JOSEY RIDER DO, Ot Z09 ENCNTR FOR F/U EXAM AFT TRTMT FOR COND O 04/07/2017 ANAYELI DICKENS 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 Ot E78.4 OTHER HYPERLIPIDEMIA 04/07/2017 ANAYELI DICKENS 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 Ot I10 ESSENTIAL (PRIMARY) HYPERTENSION 04/07/2017 ANAYELI DICKENS 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 Ot I25.10 ATHSCL HEART DISEASE OF [place] CORONARY 04/07/2017 ANAYELI DICKENS 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 Ot I34.0 NONRHEUMATIC MITRAL (VALVE) INSUFFICIENC 04/07/2017 NICKANAYELI HURTADO 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 Ot I35.8 OTHER NONRHEUMATIC AORTIC VALVE DISORDER 04/07/2017 CHRISSIE ANAYELI Hilton 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 Ot I65.23 OCCLUSION AND STENOSIS OF BILATERAL [...] DICKENS Ot I25.10 ATHSCL HEART DISEASE OF [place] CORONARY 04/19/2017 ANAYELI DICKENS Ot I34.0 NONRHEUMATIC [...] Z Ot I25.10 ATHSCL HEART DISEASE OF [place] CORONARY 05/13/2017 KAMLESH MOJICA MDIQ Z Ot [...] 05/13/2017 GALINA MARCUM, PRAKASH Z Ot Z79.4 USP (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 05/13/2017 GALINA MARCUM, PRAKASH Z Ot Z79.899 OTHER USP (CURRENT) DRUG THERAPY 05/13/2017 GALINA MARCUM, PRAKASH [...] TREATMENT NOT CARRIED OUT 03/22/2018 NEY ASTUDILLO SALES MANAGEMENT INTERN Ot 719.07 JOINT EFFUSION-ANKLE 03/22/2018 NEY ASTUDILLO [...] INCONCLUSIVE FINDINGS ON DX 03/22/2018 ANAYELI DICKENS 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 Ot I65.23 OCCLUSION AND STENOSIS OF BILATERAL NG 03/22/2018 ANAYELI DICKENS 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 Ot Z53.9 PROCEDURE AND TREATMENT NOT CARRIED OUT, 03/22/2018 ANAYELI DICKENS 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 Ot E78.4 OTHER HYPERLIPIDEMIA 03/22/2018 ANAYELI DICKENS 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 Ot I65.23 OCCLUSION AND STENOSIS OF BILATERAL NG 03/22/2018 JOSEY RIDER DO Ot R92.8 OTH ABN AND INCONCLUSIVE FINDINGS ON DX 03/22/2018 ANAYELI DICKENS 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 Ot E78.4 OTHER HYPERLIPIDEMIA 03/22/2018 ANAYELI DICKENS Ot I25.10 ATHSCL HEART DISEASE OF [place] CORONARY 03/22/2018 JOSEY RIDER DO Ot R15.9 FULL INCONTINENCE OF FECES 03/22/2018 JOSEY RIDER DO Ot R32 UNSPECIFIED URINARY INCONTINENCE 03/22/2018 JOSEY RIDER DO, Ot R92.8 OTH ABN AND INCONCLUSIVE FINDINGS ON DX 03/22/2018 ANAYELI DICKENS Ot E78.4 OTHER HYPERLIPIDEMIA 03/22/2018 ANAYELI DICKENS 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 Ot I10 ESSENTIAL (PRIMARY) HYPERTENSION 03/22/2018 ANAYELI DICKENS Ot I25.10 ATHSCL HEART DISEASE OF [place] CORONARY 03/22/2018 JOSEY RIDER DO Ot 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, NEC, LUMBAR REGION, 03/22/2018 JOSEY RIDER DO Ot S32.010A WEDGE COMPRESSION FRACTURE OF FIRST LUMB 03/22/2018 JOSEY RIDER DO Ot W19.XXXA UNSPECIFIED FALL, INITIAL ENCOUNTER 03/22/2018 JOSEY RIDER DO Ot Y99.8 OTHER EXTERNAL CAUSE STATUS 03/22/2018 ANAYELI DICKENS Ot E78.4 OTHER HYPERLIPIDEMIA 03/22/2018 ANAYELI DICKENS 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 Ot I10 ESSENTIAL (PRIMARY) HYPERTENSION 03/22/2018 ANAYELI DICKENS Ot I25.10 ATHSCL HEART DISEASE OF [place] CORONARY 03/22/2018 ANAYELI DICKENSP Ot I65.23 OCCLUSION AND STENOSIS OF BILATERAL NG 03/22/2018 JOSEY RIDER DO Ot N32.3 DIVERTICULUM OF BLADDER 03/22/2018 JOSEY RIDER DO Ot N32.89 OTHER SPECIFIED DISORDERS OF BLADDER 03/22/2018 ANAYELI DICKENS 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 Ot E78.4 OTHER HYPERLIPIDEMIA 03/22/2018 ANAYELI DICKENS 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 Ot I10 ESSENTIAL (PRIMARY) HYPERTENSION 03/22/2018 ANAYELI DICKENS 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 Ot I25.10 ATHSCL HEART DISEASE OF [place] CORONARY 03/22/2018 ANAYELI DICKENS 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 Ot I34.0 NONRHEUMATIC MITRAL (VALVE) INSUFFICIENC 03/22/2018 ANAYELI DICKENS 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 Ot I35.8 OTHER NONRHEUMATIC AORTIC VALVE DISORDER 03/22/2018 ANAYELI DICKENS 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 Ot 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 03/22/2018 BAIANAYELI HURTADO L 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 Ot 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 03/22/2018 ANAYELI DICKENS L 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 Ot E34.0 CARCINOID SYNDROME 03/22/2018 BAIANAYELI HURTADO L 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 Ot E78.4 OTHER HYPERLIPIDEMIA 03/22/2018 BAIMAANNEANAYELI L 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 Ot I10 ESSENTIAL (PRIMARY) HYPERTENSION 03/22/2018 BAIANNE HURTADOHER L 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 Ot I25.10 ATHSCL HEART DISEASE OF [place] CORONARY 03/22/2018 ANAYELI DICKENS L 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 Ot I34.0 NONRHEUMATIC MITRAL (VALVE) INSUFFICIENC 03/22/2018 ANAYELI DICKENS L 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 Ot I35.8 OTHER NONRHEUMATIC AORTIC VALVE DISORDER 03/22/2018 BAIANAYELI HURTADO L 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 Ot I65.23 OCCLUSION AND STENOSIS OF BILATERAL NG 03/22/2018 ANAYELI DICKENS L 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 Ot E78.4 OTHER HYPERLIPIDEMIA 03/22/2018 BAIANNE HURTADOHER L 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 Ot I10 ESSENTIAL (PRIMARY) HYPERTENSION 03/22/2018 ANAYELI DICKENS L 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 Ot I25.10 ATHSCL HEART DISEASE OF [place] CORONARY 03/22/2018 ANAYELI DICKENS L 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 Ot I34.0 NONRHEUMATIC MITRAL (VALVE) INSUFFICIENC 03/22/2018 NICKANAYELI HURTADO L 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 Ot I35.8 OTHER NONRHEUMATIC AORTIC VALVE DISORDER 03/22/2018 NICKANAYELI HURTADO 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 Ot I65.23 OCCLUSION AND STENOSIS OF BILATERAL [...] CCDS Ot I25.10 ATHSCL HEART DISEASE OF [place] CORONARY 03/24/2018 ABRAN MARCUM FACC, JOAQUÍN HINOJOSAP CCDS Ot I65.29 OCCLUSION AND STENOSIS OF UNSPECIFIED CA 03/24/2018 ABRAN MARCUM FACC, JOAQUÍN HINOJOSAP CCDS Ot Z72.0 TOBACCO USE 03/25/2018 RIDINGS, NEY C SALES MANAGEMENT INTERN Ot 719.07 JOINT EFFUSION-ANKLE 03/25/2018 RIDINGS, NEY C SALES MANAGEMENT INTERN Ot 719.47 JOINT PAIN-ANKLE 03/25/2018 JOSEY RIDER [...] Ot E78.4 OTHER HYPERLIPIDEMIA 03/25/2018 ANAYELI DICKENS 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 Ot I65.23 OCCLUSION AND STENOSIS OF BILATERAL NG 03/25/2018 JOSEY RIDER DO Ot R92.8 OTH ABN AND INCONCLUSIVE FINDINGS ON DX 03/25/2018 ANAYELI DICKENSP Ot E78.4 OTHER HYPERLIPIDEMIA 03/25/2018 ANAYELI DICKENSP Ot I25.10 ATHSCL HEART DISEASE OF [place] CORONARY 03/25/2018 JOSEY RIDER DO Ot R15.9 FULL INCONTINENCE OF FECES 03/25/2018 JOSEY RIDER DO Ot R32 UNSPECIFIED URINARY INCONTINENCE 03/25/2018 JOSEY RIDER DO Ot R92.8 OTH ABN AND INCONCLUSIVE FINDINGS ON DX 03/25/2018 ANAYELI DICKENS 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 Ot E78.4 OTHER HYPERLIPIDEMIA 03/25/2018 ANAYELI DICKENS 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 Ot I10 ESSENTIAL (PRIMARY) HYPERTENSION 03/25/2018 ANAYELI DICKENS 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 Ot I25.10 ATHSCL HEART DISEASE OF [place] CORONARY 03/25/2018 JOESY RIDER DO Ot 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, NEC, LUMBAR REGION, 03/25/2018 JOSEY RIDER DO Ot S32.010A WEDGE COMPRESSION FRACTURE OF FIRST LUMB 03/25/2018 JOSEY RIDER DO Ot W19.XXXA UNSPECIFIED FALL, INITIAL ENCOUNTER 03/25/2018 JOSEY RIDER DO Ot Y99.8 OTHER EXTERNAL CAUSE STATUS 03/25/2018 ANAYELI DICKENS 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 Ot E78.4 OTHER HYPERLIPIDEMIA 03/25/2018 ANAYELI DICKENS 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 Ot I10 ESSENTIAL (PRIMARY) HYPERTENSION 03/25/2018 ANAYELI DICKENS 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 Ot I25.10 ATHSCL HEART DISEASE OF [place] CORONARY 03/25/2018 ANAYELI DICKENS 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 Ot I65.23 OCCLUSION AND STENOSIS OF BILATERAL NG 03/25/2018 JOSEY RIDER DO Ot N32.3 DIVERTICULUM OF BLADDER 03/25/2018 JOSEY RIDER DO Ot N32.89 OTHER SPECIFIED DISORDERS OF BLADDER 03/25/2018 ANAYELI DICKENS 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 Ot E78.4 OTHER HYPERLIPIDEMIA 03/25/2018 ANAYELI DICKENS 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 Ot I10 ESSENTIAL (PRIMARY) HYPERTENSION 03/25/2018 ANAYELI DICKENS 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 Ot I25.10 ATHSCL HEART DISEASE OF [place] CORONARY 03/25/2018 ANAYELI DICKENS L 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 Ot I34.0 NONRHEUMATIC MITRAL (VALVE) INSUFFICIENC 03/25/2018 ANAYELI DICKENS L 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 Ot I35.8 OTHER NONRHEUMATIC AORTIC VALVE DISORDER 03/25/2018 ANAYELI DICKENS L 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 Ot 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 03/25/2018 ANAYELI DICKENS L 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 Ot 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 03/25/2018 ANAYELI DICKENS L 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 Ot E34.0 CARCINOID SYNDROME 03/25/2018 ANAYELI DICKENS 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 Ot E78.4 OTHER HYPERLIPIDEMIA 03/25/2018 BAIANAYELI HURTADO L 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 Ot I10 ESSENTIAL (PRIMARY) HYPERTENSION 03/25/2018 ANAYELI DICKENS L 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 Ot I25.10 ATHSCL HEART DISEASE OF [place] CORONARY 03/25/2018 ANAYELI DICKENS L 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 Ot I34.0 NONRHEUMATIC MITRAL (VALVE) INSUFFICIENC 03/25/2018 BAIANAYELI HURTADO L 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 Ot I35.8 OTHER NONRHEUMATIC AORTIC VALVE DISORDER 03/25/2018 ANAYELI DICKENS L 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 Ot I65.23 OCCLUSION AND STENOSIS OF BILATERAL NG 03/25/2018 ANAYELI DICKENS 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 Ot E78.4 OTHER HYPERLIPIDEMIA 03/25/2018 ANAYELI DICKENS L 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 Ot I10 ESSENTIAL (PRIMARY) HYPERTENSION 03/25/2018 ANAYELI DICKENS 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 Ot I25.10 ATHSCL HEART DISEASE OF [place] CORONARY 03/25/2018 ANAYELI DICKENS L 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 Ot I34.0 NONRHEUMATIC MITRAL (VALVE) INSUFFICIENC 03/25/2018 ANAYELI DICKENS 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 Ot I35.8 OTHER NONRHEUMATIC AORTIC VALVE DISORDER 03/25/2018 ANAYELI DICKENS L 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 Ot I65.23 OCCLUSION AND STENOSIS OF BILATERAL [...] CCDS Ot I25.10 ATHSCL HEART DISEASE OF [place] CORONARY 03/25/2018 ABRAN MARCUM FACC, ALI FACP [...] CCDS Ot I25.10 ATHSCL HEART DISEASE OF [place] CORONARY 03/29/2018 ABRAN MARCUM FACC, ALI FACP CCDS Ot Z72.0 TOBACCO USE 04/03/2018 ABRAN MARCUM FACC, ALI FACP CCDS Ot E11.9 TYPE 2 DIABETES MELLITUS WITHOUT COMPLIC 04/03/2018 ABRAN MARCUM FACC, ALI FACP CCDS Ot E78.5 HYPERLIPIDEMIA, UNSPECIFIED 04/03/2018 ABRAN MARCUM FACC, ALI FACP CCDS Ot I10 ESSENTIAL (PRIMARY) HYPERTENSION 04/03/2018 ABRAN MARCUM FACC, ALI FACP CCDS Ot I25.10 ATHSCL HEART DISEASE OF [place] CORONARY 04/03/2018 ABRAN MARCUM FACC, ALI FACP CCDS Ot Z72.0 TOBACCO USE 04/13/2018 ABRAN MARCUM FACC, ALI FACP CCDS Ot E11.9 TYPE 2 DIABETES MELLITUS WITHOUT COMPLIC 04/13/2018 ABRAN MARCUM FACC, ALI FACP CCDS Ot E78.5 HYPERLIPIDEMIA, UNSPECIFIED 04/13/2018 ABRAN HINOJOSAC, ALI FACP CCDS Ot I10 ESSENTIAL (PRIMARY) HYPERTENSION 04/13/2018 ABRAN MARCUM FACC, ALI FACP CCDS Ot I25.10 ATHSCL HEART DISEASE OF [place] CORONARY 04/13/2018 ABRAN HINOJOSAC, ALI FACP CCDS [...] CCDS Ot I25.10 ATHSCL HEART DISEASE OF [place] CORONARY 04/21/2018 ABRAN MARCUM FACC, ALI FACP CCDS Ot Z72.0 TOBACCO USE 04/25/2018 JOSEY RIDER DO Ot I70.213 ATHSCL [place] ARTERIES OF EXTRM W INTRMT 04/25/2018 JOSEY RIDER DO Ot I70.213 ATHSCL [place] ARTERIES OF EXTRM W INTRMT 04/27/2018 JOSEY [...] CCDS Ot I25.10 ATHSCL HEART DISEASE OF [place] CORONARY 04/28/2018 ABRAN MARCUM [facility], ALI FACP CCDS Ot I65.29 OCCLUSION AND STENOSIS OF UNSPECIFIED CA 04/28/2018 ABRAN MARCUM [facility], ALI FACP CCDS Ot Z72.0 TOBACCO USE 05/12/2018 ABRAN MARCUM [facility], ALI FACP CCDS Ot E11.9 TYPE 2 DIABETES MELLITUS WITHOUT COMPLIC 05/12/2018 ABRAN MARCUM [facility], ALI FACP CCDS Ot E78.5 HYPERLIPIDEMIA, UNSPECIFIED 05/12/2018 ABRAN MARCUM [facility], ALI FACP CCDS Ot I10 ESSENTIAL (PRIMARY) HYPERTENSION 05/12/2018 ABRAN MARCUM [facility], ALI FACP CCDS Ot I25.10 ATHSCL HEART DISEASE OF [place] CORONARY 05/12/2018 ABRAN MARCUM [facility], ALI FACP CCDS Ot Z72.0 TOBACCO [...] MD, Ot I25.10 ATHSCL HEART DISEASE OF [place] CORONARY 07/06/2018 PILY ENRIQUE MD, Ot I25.2 [...] UNSPECIFIED FALL, INITIAL ENCOUNTER 07/06/2018 PILY ENRIQUE MD Ot Y92.[address] IN [facility] NON-INSTITUT (PRIVATE 07/06/2018 PILY ENRIQUE MD, Ot Z79.4 CARDIOGRAPHER (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 07/06/2018 PILY ENRIQUE MD Ot Z95.5 PRESENCE OF CORONARY ANGIOPLASTY IMPLANT 07/06/2018 PILY ENRIQUE MD Ot Z96.641 PRESENCE OF RIGHT ARTIFICIAL HIP JOINT 07/11/2018 KYMBERLY DPM, DAVID Q Ot L03.116 CELLULITIS OF LEFT LOWER LIMB 07/11/2018 KYMBERLY DPM, DAVID Q Ot L97.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 07/13/2018 NATHANIEL MOFFETT MD Ot N39.0 URINARY TRACT INFECTION, SITE NOT SPECIF 07/13/2018 NATHANIEL MOFFETT MD Ot Z01.818 ENCOUNTER FOR OTHER PREPROCEDURAL EXAMIN 07/22/2018 ROBERT JAMISON APRN Ot E11.9 TYPE 2 DIABETES MELLITUS WITHOUT COMPLIC 07/22/2018 ROBERT JAMISON APRN Ot E78.00 PURE HYPERCHOLESTEROLEMIA, UNSPECIFIED 07/22/2018 ROBERT JAMISON APRN Ot F03.90 UNSPECIFIED DEMENTIA WITHOUT BEHAVIORAL 07/22/2018 ROBERT JAMISON APRN Ot F41.9 ANXIETY DISORDER, UNSPECIFIED 07/22/2018 ROBERT JAMISON APRN Ot I25.10 ATHSCL HEART DISEASE OF [place] CORONARY 07/22/2018 ROBERT JAMISON APRN Ot I25.2 OLD MYOCARDIAL INFARCTION 07/22/2018 ROBERT JAMISON APRN Ot I73.9 PERIPHERAL VASCULAR DISEASE, UNSPECIFIED 07/22/2018 ROBERT JAMISON APRN Ot K21.9 GASTRO-ESOPHAGEAL REFLUX DISEASE WITHOUT 07/22/2018 ROBERT JAMISON APRN Ot M81.0 AGE-RELATED OSTEOPOROSIS W/O CURRENT PAT 07/22/2018 ROBERT JAMISON APRN Ot N39.0 URINARY TRACT INFECTION, SITE NOT SPECIF 07/22/2018 ROBERT JAMISON APRN Ot R53.81 OTHER MALAISE 07/22/2018 ROBERT JAMISON APRN Ot Z79.02 USP (CURRENT) USE OF ANTITHROMBOTI 07/22/2018 ROBERT JAMISON APRN Ot Z79.4 USP (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 07/22/2018 ROBERT JAMISON APRN Ot Z79.51 USP (CURRENT) USE OF INHALED STERO 07/22/2018 ROBERT JAMISON APRN Ot Z79.82 USP (CURRENT) USE OF ASPIRIN 07/22/2018 ROBERT JAMISON APRN Ot Z82.49 FAMILY HX OF ISCHEM HEART DIS AND OTH DI 07/22/2018 ROBERT JAMISON APRN Ot Z86.73 PRSNL HX OF TIA (TIA), AND CEREB INFRC W 07/22/2018 ROBERT JAMISON APRN Ot Z87.19 PERSONAL HISTORY OF OTHER DISEASES OF TH 07/22/2018 ROBERT JAMISON APRN Ot Z90.49 ACQUIRED ABSENCE OF OTHER SPECIFIED PART 07/22/2018 ROBERT JAMISON APRN Ot Z90.710 ACQUIRED ABSENCE OF BOTH CERVIX AND UTER 07/22/2018 ROBERT JAMISON APRN Ot Z95.5 PRESENCE OF CORONARY ANGIOPLASTY IMPLANT 07/22/2018 ROBERT JAMISON APRN Ot Z98.890 OTHER SPECIFIED POSTPROCEDURAL STATES 07/24/2018 BERNYVETTE GIVENS Ot E11.9 TYPE 2 DIABETES MELLITUS WITHOUT COMPLIC 07/24/2018 JODIE IFNANTEIS Ot E78.00 PURE HYPERCHOLESTEROLEMIA, UNSPECIFIED 07/24/2018 BERNCHON YVETTE Ot F03.90 UNSPECIFIED DEMENTIA WITHOUT BEHAVIORAL 07/24/2018 JODIE INFANTEIS Ot F41.9 ANXIETY DISORDER, UNSPECIFIED 07/24/2018 YVETTE INFANTE Ot I25.10 ATHSCL HEART DISEASE OF [place] CORONARY 07/24/2018 YVETTE INFANTE Ot I25.2 OLD MYOCARDIAL INFARCTION 07/24/2018 STACEYCHON YVETTE Ot K21.9 GASTRO-ESOPHAGEAL REFLUX DISEASE WITHOUT 07/24/2018 YVETTE INFANTE Ot L03.116 CELLULITIS OF LEFT LOWER LIMB 07/24/2018 STACEYCHON YVETTE Ot M81.0 AGE-RELATED OSTEOPOROSIS W/O CURRENT PAT 07/24/2018 NARESH YVETTE Ot T81.40XA INFECTION FOLLOWING A PROCEDURE, UNSPECI 07/24/2018 YVETTE INFANTE Ot Z79.02 USP (CURRENT) USE OF ANTITHROMBOTI 07/24/2018 YVETTE INFANTE Ot Z79.4 USP (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 07/24/2018 YVETTE INFANTE Ot Z79.51 CARDIOGRAPHER (CURRENT) USE OF INHALED STERO 07/24/2018 YVETTE INFANTE Ot Z79.82 CARDIOGRAPHER (CURRENT) USE OF ASPIRIN 07/24/2018 YVETTE INFANTE Ot Z82.49 FAMILY HX OF ISCHEM HEART DIS AND OTH DI 07/24/2018 YVETTE INFANTE Ot Z86.73 PRSNL HX OF TIA (TIA), AND CEREB INFRC W 07/24/2018 YVETTE INFANTE Ot Z87.19 PERSONAL HISTORY OF OTHER DISEASES OF TH 07/24/2018 YVETTE INFANTE Ot Z90.49 ACQUIRED ABSENCE OF OTHER SPECIFIED PART 07/24/2018 YVETTE INFANTE Ot Z90.710 ACQUIRED ABSENCE OF BOTH CERVIX AND UTER 07/24/2018 YVETTE INFANTE Ot Z95.5 PRESENCE OF CORONARY ANGIOPLASTY IMPLANT 07/24/2018 YVETTE INFANTE Ot Z96.642 PRESENCE OF LEFT ARTIFICIAL HIP JOINT 07/24/2018 JODIE INFANTEIS Ot Z98.890 OTHER SPECIFIED POSTPROCEDURAL STATES 07/25/2018 LINDA MARCUM, LOYDA J Ot E11.9 TYPE 2 DIABETES MELLITUS WITHOUT COMPLIC 07/25/2018 LINDA MARCUM, LOYDA Parikh Ot E78.00 PURE HYPERCHOLESTEROLEMIA, UNSPECIFIED 07/25/2018 LINDA MARCUM, LOYDA J Ot F03.90 UNSPECIFIED DEMENTIA WITHOUT BEHAVIORAL 07/25/2018 LINDA MARCUM, LOYDA J Ot F41.9 ANXIETY DISORDER, UNSPECIFIED 07/25/2018 LINDA MARCUM, LOYDA Parikh Ot I25.10 ATHSCL HEART DISEASE OF [place] CORONARY 07/25/2018 LOYDA MCKEON MD, Ot I25.2 OLD MYOCARDIAL INFARCTION 07/25/2018 LOYDA MCKEON MD, Ot K21.9 GASTRO-ESOPHAGEAL REFLUX DISEASE WITHOUT 07/25/2018 LOYDA MCKEON MD, Ot M81.0 AGE-RELATED OSTEOPOROSIS W/O CURRENT PAT 07/25/2018 LOYDA MCKEON MD Ot R40.2142 COMA SCALE, EYES OPEN, SPONTANEOUS, EMR 07/25/2018 LOYDA MCKEON MD Ot R40.2252 COMA SCALE, BEST VERBAL RESPONSE, ORIENT 07/25/2018 LOYDA MCKEON MD, Ot R40.2362 COMA SCALE, BEST MOTOR RESPONSE, OBEYS C 07/25/2018 LOYDA MCKEON MD, Ot S72.002G FX UNSP PART OF NK OF L FEMR, SUBS FOR C 07/25/2018 LOYDA MCKEON MD, Ot T81.89XA OTH COMPLICATIONS OF PROCEDURES, NEC, IN 07/25/2018 LOYDA MCKEON MD Ot W19.XXXD UNSPECIFIED FALL, SUBSEQUENT ENCOUNTER 07/25/2018 LOYDA MCKEON MD, Ot Z79.02 CARDIOGRAPHER (CURRENT) USE OF ANTITHROMBOTI 07/25/2018 LOYDA MCKEON MD, Ot Z79.4 USP (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 07/25/2018 LOYDA MCKEON MD, Ot Z79.51 USP (CURRENT) USE OF INHALED STERO 07/25/2018 LOYDA MCKEON MD Ot Z79.82 USP (CURRENT) USE OF ASPIRIN 07/25/2018 LOYDA MCKEON MD Ot Z82.49 FAMILY HX OF ISCHEM HEART DIS AND OTH DI 07/25/2018 LOYDA MCKEON MD Ot Z86.73 PRSNL HX OF TIA (TIA), AND CEREB INFRC W 07/25/2018 LOYDA MCKEON MD, Ot Z87.19 PERSONAL HISTORY OF OTHER DISEASES OF TH 07/25/2018 LOYDA MCKEON MD, Ot Z87.440 PERSONAL HISTORY OF URINARY (TRACT) INFE 07/25/2018 LOYDA MCKEON MD, Ot Z87.891 PERSONAL HISTORY OF NICOTINE DEPENDENCE 07/25/2018 LOYDA MCKEON MD Ot Z90.49 ACQUIRED ABSENCE OF OTHER SPECIFIED PART 07/25/2018 LOYDA MCKEON MD, Ot Z90.710 ACQUIRED ABSENCE OF BOTH CERVIX AND UTER 07/25/2018 LOYDA MCKEON MD Ot Z95.5 PRESENCE OF CORONARY ANGIOPLASTY IMPLANT 07/25/2018 LOYDA MCKEON MD, Ot Z98.890 OTHER SPECIFIED POSTPROCEDURAL STATES 07/25/2018 KYMBERLY DPM, DAVID Q Ot R09.89 OTH SYMPTOMS AND SIGNS INVOLVING THE CIR 07/28/2018 LOYDA MCKEON MD Ot E11.9 TYPE 2 DIABETES MELLITUS WITHOUT COMPLIC 07/28/2018 LOYDA MCKEON MD Ot E78.00 PURE HYPERCHOLESTEROLEMIA, UNSPECIFIED 07/28/2018 LOYDA MCKEON MD Ot F03.90 UNSPECIFIED DEMENTIA WITHOUT BEHAVIORAL 07/28/2018 LOYDA MCKEON MD, Ot F41.9 ANXIETY DISORDER, UNSPECIFIED 07/28/2018 LOYDA MCKEON MD, Ot I25.10 ATHSCL HEART DISEASE OF [place] CORONARY 07/28/2018 LOYDA MCKEON MD, Ot I25.2 OLD MYOCARDIAL INFARCTION 07/28/2018 LOYDA MCKEON MD Ot K21.9 GASTRO-ESOPHAGEAL REFLUX DISEASE WITHOUT 07/28/2018 LOYDA MCKEON MD Ot M81.0 AGE-RELATED OSTEOPOROSIS W/O CURRENT PAT 07/28/2018 LOYDA MCKEON MD Ot R40.2142 COMA SCALE, EYES OPEN, SPONTANEOUS, EMR 07/28/2018 LOYDA MCKEON MD, Ot R40.2252 COMA SCALE, BEST VERBAL RESPONSE, ORIENT 07/28/2018 LOYDA MCKEON MD, Ot R40.2362 COMA SCALE, BEST MOTOR RESPONSE, OBEYS C 07/28/2018 LOYDA MCKEON MD, Ot S72.002G FX UNSP PART OF NK OF L FEMR, SUBS FOR C 07/28/2018 LOYDA MCKEON MD, Ot T81.89XA OTH COMPLICATIONS OF PROCEDURES, NEC, IN 07/28/2018 LOYDA MCKEON MD Ot W19.XXXD UNSPECIFIED FALL, SUBSEQUENT ENCOUNTER 07/28/2018 LOYDA MCKEON MD, Ot Z79.02 CARDIOGRAPHER (CURRENT) USE OF ANTITHROMBOTI 07/28/2018 LOYDA MCKEON MD, Ot Z79.4 USP (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 07/28/2018 LOYDA MCKEON MD, Ot Z79.51 USP (CURRENT) USE OF INHALED STERO 07/28/2018 LOYDA MCKEON MD Ot Z79.82 USP (CURRENT) USE OF ASPIRIN 07/28/2018 LOYDA MCKEON MD, Ot Z82.49 FAMILY HX OF ISCHEM HEART DIS AND OTH DI 07/28/2018 LOYDA MCKEON MD Ot Z86.73 PRSNL HX OF TIA (TIA), AND CEREB INFRC W 07/28/2018 LOYDA MCKEON MD Ot Z87.19 PERSONAL HISTORY OF OTHER DISEASES OF TH 07/28/2018 LOYDA MCKEON MD, Ot Z87.440 PERSONAL HISTORY OF URINARY (TRACT) INFE 07/28/2018 LOYDA MCKEON MD, Ot Z87.891 PERSONAL HISTORY OF NICOTINE DEPENDENCE 07/28/2018 LOYDA MCKEON MD Ot Z90.49 ACQUIRED ABSENCE OF OTHER SPECIFIED PART 07/28/2018 LOYDA MCKEON MD Ot Z90.710 ACQUIRED ABSENCE OF BOTH CERVIX AND UTER 07/28/2018 LOYDA MCKEON MD Ot Z95.5 PRESENCE OF CORONARY ANGIOPLASTY IMPLANT 07/28/2018 LOYDA MCKEON MD Ot Z98.890 OTHER SPECIFIED POSTPROCEDURAL STATES Procedures Code Description Performed By Performed On 00.40 PROCEDURE ON SINGLE VESSEL 11/23/2011 38.12 HEAD NECK ENDARTER NEC 11/23/2011 [id number] REPLACE OF L HIP JT, FEMORAL WITH [...] culture - 04/08/17 08:35 Bacterial urine culture [id number] NRG COLONY COUNT >100,000/ML NRG FTX;REPORTABLE PLUS, [...] ABO+Rh group BP NRG Transfusion band number [id number] NRG Blood group antibody screen NEGATIVE NRG [...] UP NRG QUANTITY OF GROWTH Isolated NRG Complete urinalysis with reflex to culture - 07/20/18 15:53 Urine color determination YELLOW NRG Urine clarity determination VERY CLOUDY NRG Urine pH measurement by test strip 6 5-9 Specific gravity of urine by test strip 1.010 1.016- 1.022 Urine protein assay by test strip, semi-quantitative 3+ NEGATIVE Urine glucose detection by automated test strip 4+ NEGATIVE Erythrocytes detection in urine sediment by light microscopy 5+ NEGATIVE Urine ketones detection by automated test [...] urine sediment by light microscopy MODERATE NRG Squamous epithelial cells detection in urine sediment by light microscopy 10-25 NRG Crystals detection in urine sediment by light microscopy NONE NRG Casts detection in urine sediment by light microscopy NONE NRG Mucus detection in urine sediment by light microscopy NEGATIVE NRG Complete urinalysis with reflex to culture YES NRG Yeast detection in urine sediment by light microscopy LARGE NRG Complete blood count (CBC) with automated white blood cell (WBC) differential - 07/20/18 16:21 Blood leukocytes automated count (number/volume) 9.3 10*3/uL 4.3-11.0 Blood erythrocytes automated count (number/volume) 5.10 10*6/uL 4.35-5.85 Venous blood hemoglobin measurement (mass/volume) 9.8 g/dL 11.5-16.0 Blood hematocrit (volume fraction) 34 % 35-52 Automated erythrocyte mean corpuscular volume 67 [foz_us] 80-99 Automated erythrocyte mean corpuscular hemoglobin (mass per erythrocyte) 19 pg 25-34 Automated erythrocyte mean corpuscular hemoglobin concentration measurement ( mass/volume) 29 g/dL 32-36 Automated erythrocyte distribution width ratio 30.0 % 10.0-14.5 Automated blood platelet count (count/volume) 601 10*3/uL 130-400 Automated blood platelet mean volume measurement 9.8 [foz_us] 7.4-10.4 Automated blood neutrophils/100 leukocytes 58 % 42-75 Automated blood lymphocytes/100 leukocytes 29 % 12-44 Blood monocytes/100 leukocytes 11 % 0-12 Automated blood eosinophils/100 leukocytes 1 % 0-10 Automated blood basophils/100 leukocytes 1 % 0-10 Blood neutrophils automated count (number/volume) 5.4 10*3 1.8-7.8 Blood lymphocytes automated count (number/volume) 2.7 10*3 1.0-4.0 Blood monocytes automated count (number/volume) 1.0 10*3 0.0-1.0 Automated eosinophil count 0.1 10*3/uL 0.0-0.3 Automated blood basophil count (count/volume) 0.1 10*3/uL 0.0-0.1 Blood lactic acid measurement (moles/volume) - 07/20/18 16:21 Blood lactic acid measurement (moles/volume) 1.27 mmol/L 0.50-2.00 Comprehensive metabolic panel - 07/20/18 16:21 Serum or plasma sodium measurement (moles/volume) 135 mmol/L 135-145 Serum or plasma potassium measurement (moles/volume) 4.3 mmol/L 3.6-5.0 Serum or plasma chloride measurement (moles/volume) 101 mmol/L 98-107 Carbon dioxide 27 mmol/L 21-32 Serum or plasma anion gap determination (moles/volume) 7 mmol/L 5-14 Serum or plasma urea nitrogen measurement (mass/volume) 10 mg/dL 7-18 Serum or plasma creatinine measurement (mass/volume) 0.63 mg/dL 0.60-1.30 Serum or plasma urea nitrogen/creatinine mass ratio 16 NRG Serum or plasma creatinine measurement with calculation of estimated glomerular filtration rate > NRG Serum or plasma glucose measurement (mass/volume) 130 mg/dL 70-105 Serum or plasma calcium measurement (mass/volume) 8.4 mg/dL 8.5-10.1 Serum or plasma total bilirubin measurement (mass/volume) 0.6 mg/dL 0.1-1.0 Serum or plasma alkaline phosphatase measurement (enzymatic activity/volume) 88 U/L 40-136 Serum or plasma aspartate aminotransferase measurement (enzymatic activity/ volume) 25 U/L 5-34 Serum or plasma alanine aminotransferase measurement (enzymatic activity/volume ) 17 U/L 0-55 Serum or plasma protein measurement (mass/volume) 6.2 g/dL 6.4-8.2 Serum or plasma albumin measurement (mass/volume) 3.2 g/dL 3.2-4.5 CALCIUM CORRECTED 9.0 mg/dL 8.5-10.1 Complete blood count (CBC) with automated white blood cell (WBC) differential - 07/22/18 04:15 Blood leukocytes automated count (number/volume) 9.9 10*3/uL 4.3-11.0 Blood erythrocytes automated count (number/volume) 4.93 10*6/uL 4.35-5.85 Venous blood hemoglobin measurement (mass/volume) 9.7 g/dL 11.5-16.0 Blood hematocrit (volume fraction) 32 % 35-52 Automated erythrocyte mean corpuscular volume 66 [foz_us] 80-99 Automated erythrocyte mean corpuscular hemoglobin (mass per erythrocyte) 20 pg 25-34 Automated erythrocyte mean corpuscular hemoglobin concentration measurement ( mass/volume) 30 g/dL 32-36 Automated erythrocyte distribution width ratio 30.1 % 10.0-14.5 Automated blood platelet count (count/volume) 705 10*3/uL 130-400 Automated blood platelet mean volume measurement 9.3 [foz_us] 7.4-10.4 Automated blood neutrophils/100 leukocytes 64 % 42-75 Automated blood lymphocytes/100 leukocytes 24 % 12-44 Blood monocytes/100 leukocytes 10 % 0-12 Automated blood eosinophils/100 leukocytes 2 % 0-10 Automated blood basophils/100 leukocytes 1 % 0-10 Blood neutrophils automated count (number/volume) 6.4 10*3 1.8-7.8 Blood lymphocytes automated count (number/volume) 2.3 10*3 1.0-4.0 Blood monocytes automated count (number/volume) 1.0 10*3 0.0-1.0 Automated eosinophil count 0.2 10*3/uL 0.0-0.3 Automated blood basophil count (count/volume) 0.1 10*3/uL 0.0-0.1 Comprehensive metabolic panel - 07/22/18 04:15 Serum or plasma sodium measurement (moles/volume) 136 mmol/L 135-145 Serum or plasma potassium measurement (moles/volume) 4.5 mmol/L 3.6-5.0 Serum or plasma chloride measurement (moles/volume) 101 mmol/L 98-107 Carbon dioxide 25 mmol/L 21-32 Serum or plasma anion gap determination (moles/volume) 10 mmol/L 5-14 Serum or plasma urea nitrogen measurement (mass/volume) 7 mg/dL 7-18 Serum or plasma creatinine measurement (mass/volume) 0.62 mg/dL 0.60-1.30 Serum or plasma urea nitrogen/creatinine mass ratio 11 NRG Serum or plasma creatinine measurement with calculation of estimated glomerular filtration rate > NRG Serum or plasma glucose measurement (mass/volume) 121 mg/dL 70-105 Serum or plasma calcium measurement (mass/volume) 8.5 mg/dL 8.5-10.1 Serum or plasma total bilirubin measurement (mass/volume) 0.5 mg/dL 0.1-1.0 Serum or plasma alkaline phosphatase measurement (enzymatic activity/volume) 97 U/L 40-136 Serum or plasma aspartate aminotransferase measurement (enzymatic activity/ volume) 22 U/L 5-34 Serum or plasma alanine aminotransferase measurement (enzymatic activity/volume ) 18 U/L 0-55 Serum or plasma protein measurement (mass/volume) 6.1 g/dL 6.4-8.2 Serum or plasma albumin measurement (mass/volume) 3.1 g/dL 3.2-4.5 CALCIUM CORRECTED 9.2 mg/dL 8.5-10.1 Complete blood count (CBC) with automated white blood cell (WBC) differential - 07/23/18 10:12 Blood leukocytes automated count (number/volume) 12.3 10*3/uL 4.3-11.0 Blood erythrocytes automated count (number/volume) 5.24 10*6/uL 4.35-5.85 Venous blood hemoglobin measurement (mass/volume) 10.2 g/dL 11.5-16.0 Blood hematocrit (volume fraction) 34 % 35-52 Automated erythrocyte mean corpuscular volume 65 [foz_us] 80-99 Automated erythrocyte mean corpuscular hemoglobin (mass per erythrocyte) 19 pg 25-34 Automated erythrocyte mean corpuscular hemoglobin concentration measurement ( mass/volume) 30 g/dL 32-36 Automated erythrocyte distribution width ratio 30.1 % 10.0-14.5 Automated blood platelet count (count/volume) 852 10*3/uL 130-400 Automated blood platelet mean volume measurement 9.6 [foz_us] 7.4-10.4 Automated blood neutrophils/100 leukocytes 74 % 42-75 Automated blood lymphocytes/100 leukocytes 16 % 12-44 Blood monocytes/100 leukocytes 9 % 0-12 Automated blood eosinophils/100 leukocytes 1 % 0-10 Automated blood basophils/100 leukocytes 1 % 0-10 Blood neutrophils automated count (number/volume) 9.1 10*3 1.8-7.8 Blood lymphocytes automated count (number/volume) 1.9 10*3 1.0-4.0 Blood monocytes automated count (number/volume) 1.1 10*3 0.0-1.0 Automated eosinophil count 0.1 10*3/uL 0.0-0.3 Automated blood basophil count (count/volume) 0.1 10*3/uL 0.0-0.1 Encounters ACCT No. Visit Date/Time Discharge Status Pt. Type Provider Facility Loc./Unit Complaint [id number] 07/25/2018 12:26:00 07/25/2018 23:59:59 CLS Outpatient KYMBERLY DPM, DAVID Q [facility] RAD DIMINISHED PEDAL PULSES [id number] 07/23/2018 09:52:00 07/23/2018 23:59:59 CLS Outpatient CAROL ANN KRUSE MD [facility] LAB [id number] 07/22/2018 03:58:00 07/22/2018 05:25:00 DIS Outpatient LOYDA MCKEON MD [facility] ER LEFT HIP BLEEDING [id number] 07/20/2018 15:46:00 07/20/2018 17:32:00 DIS Outpatient ROBERT JAMISON APRN [facility] ER LOW BODY TEMP [id number] 07/17/2018 22:15:00 07/17/2018 23:00:00 DIS Outpatient YVETTE INFANTE [facility] ER SURGERY SITE [id number] 07/03/2018 17:00:00 07/06/2018 13:50:00 DIS Inpatient IVA MARCUM, PILY Sood [facility] 4TH L SUBCAPITOL HIP FX, CAD,TYPE2 DM,FALL,DEMENTIA [id number] 06/15/2018 08:12:00 06/15/2018 23:59:59 CLS Outpatient NATHANIEL MOFFETT MD [facility] LAB Z01.810,N39.0 [id number] 06/10/2018 07:57:00 06/10/2018 23:59:59 CLS Outpatient NATHANIEL MOFFETT MD [facility] LAB PREOPERATIVE CARDIOVASCULAR EXAM [id number] 06/09/2018 16:16:00 06/09/2018 23:59:59 CLS Outpatient DAVID TRAYLOR DPM Q [facility] RAD CHRONIC ULCERATION TO THE LEFT 5TH METATARSAL HEAD [id number] 06/08/2018 10:35:00 06/08/2018 23:59:59 CLS Outpatient KYMBERLYDAVID Braswell DPM Q [facility] LAB CELLULITIS LEFT FOOT [id number] 04/26/2018 08:55:00 04/26/2018 23:59:59 CLS Outpatient JOSEY RIDER DO [facility] RAD PAD OF LOWER EXTREMITIES [id number] 03/28/2018 08:14:00 03/28/2018 23:59:59 CLS Outpatient ABRAN MARCUM FACC, JOAQUÍN HINOJOSAP CCDS [facility] RT CAD,CAROTID ARTERY STENOSIS,HLD,HTN [id number] 03/22/2018 10:19:00 03/22/2018 23:59:59 CLS Outpatient ABRAN MARCUM FACLai, JOAQUÍN HINOJOSAP CCDS [facility] CARD CAD,CAROTID ARTERY STENOSIS,HLD,HTN [id number] 08/25/2017 08:12:00 08/25/2017 23:59:59 CLS Outpatient JOSEY RIDER DO [facility] RAD RIGHT ARM PAIN/ SWELLING [id number] 08/09/2017 14:36:00 08/09/2017 23:59:59 CLS Preadmit JOSEY RIDER DO [facility] RAD BREAST ABNORMALITY [id number] 07/20/2017 10:20:00 07/20/2017 23:59:59 CLS Preadmit JOSEY RIDER DO [facility] RAD SCREENING Z12.31 [id number] 06/25/2017 10:41:00 06/25/2017 11:36:00 DIS Outpatient JOSEY RIDER DO [facility] REHAB COMP FX L1 S/P KYPHOPLASTY [id number] 05/31/2017 11:02:00 06/01/2017 00:01:00 DIS Outpatient JOSEY RIDER DO [facility] REHAB COMP FX L1 S/P KYPHOPLASTY [id number] 04/20/2017 09:00:00 04/20/2017 23:59:59 CLS Outpatient RABBI MARCUM URI Jaylin [facility] LAB Z01.810 Z01.818 [id number] 04/08/2017 08:25:00 04/08/2017 23:59:59 CLS Outpatient RABBI MARCUMURI [facility] LAB N39.0,I65.23,Z01.818 [id number] 04/07/2017 12:45:00 04/07/2017 23:59:59 CLS Outpatient JOSEY RIDER DO [facility] ME1.0 [id number] 03/31/2017 10:14:00 03/31/2017 23:59:59 CLS Preadmit JOSEY RIDER DO [facility] M81.0 [id number] 03/18/2017 10:16:00 03/18/2017 23:59:59 CLS Outpatient JOSEY RIDER DO [facility] RAD LUMBAR COMPRESSION FRACTURES [id number] 03/16/2017 07:30:00 03/16/2017 23:59:59 CLS Outpatient BAIANAYELI HURTADO 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 [facility] CARD CAD [id number] 03/02/2017 07:42:00 03/02/2017 23:59:59 CLS Outpatient ANAYELI DICKENS 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 [facility] CARD CAD [id number] 03/02/2017 08:20:00 03/02/2017 11:11:00 DIS Emergency LINDA MARCUM, LOYDA Parikh [facility] ER FALL [id number] 02/24/2017 11:30:00 02/24/2017 23:59:59 CLS Outpatient BAIANAYELI HURTADO L 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 [facility] RAD CAROTID ARTERY STENOSIS,CAD [id number] 02/16/2017 07:51:00 02/16/2017 23:59:59 CLS Outpatient JOSEY RIDER DO [facility] RAD N39.0 EVALUATE FOR FISTULA [id number] 02/03/2017 18:02:00 02/05/2017 14:30:00 DIS Inpatient CARMEN RAMIREZ DO [facility] 4TH UTI W RESISTANCE,AMS, HYPONATREMIC,S/P KYPHOPLASTY [id number] 02/02/2017 10:24:00 02/02/2017 23:59:59 CLS Outpatient ANAYELI DICKENS [facility] LAB I25.10 [id number] 02/02/2017 11:10:00 02/02/2017 16:45:00 DIS Outpatient PRAKASH MOJICA MD [facility] SDC L1 COMPRESSION FRACTURE [id number] 01/29/2017 05:26:00 01/29/2017 10:38:00 DIS Outpatient PRAKASH MOJICA MD [facility] PREOP L1 COMPRESSION FRACTURE [id number] 01/28/2017 10:14:00 01/28/2017 23:59:59 CLS Outpatient JOSEY RIDER DO [facility] RAD FRACTURE L1 [id number] 01/26/2017 09:50:00 01/26/2017 23:59:59 CLS Outpatient JOSEY RIDER DO [facility] RAD COMPRESSION FX [id number] 01/14/2017 13:33:00 01/14/2017 16:54:00 DIS Emergency CONNOR MODI [facility] ER LOWER BACK PAIN-FALL [id number] 09/16/2016 00:16:00 09/16/2016 23:59:59 CLS Preadmit JOSEY RIDER DO [facility] LAB R19.7 [id number] 06/17/2016 13:44:00 09/15/2016 00:01:00 DIS Outpatient JOSEY RIDER DO [facility] LAB R19.7 [id number] 08/21/2016 08:28:00 08/21/2016 23:59:59 CLS Outpatient ANAYELI DICKENS [facility] LAB HLD,CAD,HTN [id number] 08/03/2016 12:54:00 08/03/2016 15:49:00 DIS Emergency KAYLIN DONIS [facility] ER FALL/LEFT HAND INJURY [id number] 07/20/2016 08:33:00 07/20/2016 23:59:59 CLS Outpatient JOSEY RIDER DO [facility] RAD F/U RIGHT BREAST DENSITY [id number] 04/09/2016 07:10:00 04/09/2016 23:59:59 CLS Outpatient JOSEY RIDER DO [facility] RAD URINARY/FECAL INCONTINENCE [id number] 02/14/2016 08:03:00 02/14/2016 23:59:59 CLS Outpatient ANAYELI DICKENS 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 [facility] LAB HLD,CAD [id number] 01/24/2016 08:38:00 01/24/2016 23:59:59 CLS Outpatient JOSEY RIDER DO [facility] RAD F/U [id number] 12/30/2015 11:13:00 12/30/2015 23:59:59 CLS Outpatient ANAYELI DICKENS L 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 [facility] RAD CAROTID ARTERY STENOSIS [id number] 12/26/2015 07:55:00 12/26/2015 23:59:59 CLS Outpatient ANAYELI DICKENS L 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 [facility] LAB CAROTID ARTERY STENOSIS,HLD [id number] 12/25/2015 08:37:00 12/25/2015 23:59:59 CLS Outpatient ANAYELI DICKENS L 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 [facility] LAB CAROTID ARTERY STENOSIS, HDL [id number] 12/03/2015 09:59:00 12/03/2015 14:45:00 DIS Emergency LAURIE MARCUM, RD Newman [facility] ER CHEST PAIN/FATIGUE UPPER LEG PAIN [id number] 08/05/2015 07:42:00 08/05/2015 23:59:59 CLS Outpatient JOSEY RIDER DO [facility] RAD ABNORMAL MAMMO [id number] 07/25/2015 08:25:00 07/25/2015 23:59:59 CLS Outpatient JOSEY RIDRE DO [facility] RAD SCREENING [id number] 03/28/2015 06:02:00 03/28/2015 23:59:59 CLS Outpatient KYMBERLY DPM, DAVID Q [facility] CARD CHRONIC ULCER L 5TH METATARSAL [id number] 02/15/2015 11:20:00 02/15/2015 15:45:00 DIS Outpatient KYMBERLY DPM, DAVID Q [facility] BUNION [id number] 02/11/2015 07:53:00 02/11/2015 23:59:59 CLS Outpatient KYMBERLY DPM, DAVID Q [facility] PREOP BUNION [id number] 01/31/2015 06:00:00 01/31/2015 07:37:00 DIS Outpatient KYMBERLY DPM, DAVID Q [facility] BUNION LEFT FOOT [id number] 01/29/2015 07:28:00 01/29/2015 23:59:59 CLS Outpatient ABRAN MARCUM FACC, ALI FACP CCDS [facility] CARD CAD [id number] 01/25/2015 08:23:00 01/25/2015 23:59:59 CLS Outpatient ABRAN MARCUM FACC, ALI FACP CCDS [facility] CARD CAD [id number] 01/17/2015 12:02:00 01/17/2015 23:59:59 CLS Outpatient KYMBERLY DPM, DAVID Q [facility] PREOP BUNION LEFT FOOT [id number] 09/24/2014 21:57:00 09/25/2014 12:02:00 DIS Inpatient JOSEY RIDER DO [facility] 4TH HYPOGLYCEMIA [id number] 09/23/2014 11:46:00 09/23/2014 14:06:00 DIS Emergency ROBERT JAMISON APRN [facility] ER LOW BLOOD SUGAR [id number] 09/06/2014 09:10:00 09/06/2014 10:45:[address] SULLIVAN MD [facility] ER HYPOGLYCEMIA [id number] 08/01/2014 15:58:00 08/03/2014 10:15:00 DIS Inpatient JOSEY RIDER DO [facility] 4TH UNCONTROLLED DIABETES [id number] 06/27/2013 09:15:00 06/27/2013 23:59:59 CLS Outpatient JOSEY RIDER DO [facility] RAD SCREENING [id number] 05/29/2013 07:57:00 05/29/2013 10:45:[address] SULLIVAN MD [facility] ER POSS VAG ABSCESS [id number] 12/20/2012 11:53:00 12/20/2012 23:59:59 CLS Outpatient NEY ASTUDILLO [employer] INTERN [facility] RAD PAIN AND SWELLING IN RT ANKLE [id number] 08/06/2014 16:39:00 Document Registration [id number] 08/06/2014 16:39:00 Document Registration [id number] 08/06/2014 16:39:00 Document Registration [id number] 08/06/2014 16:39:00 Document Registration [id number] 08/06/2014 16:39:00 Document Registration [id number] 08/06/2014 16:39:00 Document Registration [id number] 08/06/2014 16:39:00 Document Registration [id number] 07/17/2014 09:06:00 Document Registration [id number] 12/03/2011 09:20:00 Document Registration [id number] 11/16/2011 09:00:00 Document Registration [id number] 06/03/2011 09:07:00 Document Registration [id number] 10/02/2010 06:37:00 Document Registration [id number] 09/18/2010 10:27:00 Document Registration [id number] 06/24/2009 08:17:00 Document Registration [id number] 08/25/2017 10:15:00 08/25/2017 23:59:00 DIS Outpatient JOSEY RIDER [facility] 02/15/2015 11:23:52 ACT Document Registration
--- NOTE | 2018-08-05 10:36 | ED General ---
General Chief Complaint: General Problems/Pain Stated Complaint: SICK Source of Information: Patient, EMS Exam Limitations: No Limitations History of Present Illness Date Seen by Provider: Aug 05, 2018 Time Seen by Provider: 10:34 Initial Comments To ER from home with c/o weakness and lethargy. Arrives per EMS. Recently had left hip surgery. Timing/Duration: 1-2 Days Severity: Moderate Associated Systoms: Malaise, Weakness Allergies and Home Medications Allergies Coded Allergies: No Known Drug Allergies (Unverified , 01/29/17) Home Medications Albuterol/Ipratropium 4 Gm Aero, 1 PUFF INH 0800,1130,1500,1830 PRN for IF UNABLE TO USE DUONEB, (Reported) Aspirin 81 Mg Tablet.dr, 81 MG PO DAILY, (Reported) Atorvastatin Calcium 80 Mg Tablet, 80 MG PO DAILY, (Reported) Canagliflozin 100 Mg Tablet, 100 MG PO DAILY, (Reported) Clopidogrel Bisulfate 75 Mg Tablet, 75 MG PO DAILY, (Reported) Cranberry Extract 500 Mg Tablet, 1,500 MG PO HS, (Reported) Cyanocobalamin 1,000 Mcg/Ml Inj, 1,000 MCG IJ OF MONTH, (Reported) Cyproheptadine HCl 4 Mg Tablet, 4 MG PO BID, (Reported) Diclofenac Sodium 100 Gm Gel..gram., TOP BID PRN for ARTHRITIS PAIN, (Reported) APPLY TO RIGHT HAND Donepezil HCl 10 Mg Tablet, 10 MG PO HS, (Reported) Ergocalciferol (Vitamin D2) 50,000 Unit Capsule, 50,000 UNITS PO Mo, (Reported) Esomeprazole Magnesium 40 Mg Cap, 40 MG PO DAILY, (Reported) Ferrous Sulfate 325 Mg Tablet, 325 MG PO DAILY, (Reported) Glucagon,Human Recombinant 1 Mg Vial, 1 MG INJ UD PRN for BLOOD SUGAR, (Reported ) Insulin Aspart 100 Unit/1 Ml Susp, SC AC, (Reported) BELOW 100 = 0 UNITS 100-130 = 2 UNITS 131-160 = 3 UNITS 161-190 = 4 UNITS 191 OR HIGHER = 5 UNITS Insulin Glargine,Hum.rec.anlog 100 Unit/1 Ml Vial, 23 UNIT SQ HS, (Reported) Ipratropium/Albuterol Sulfate 3 Ml Ampul.neb, 3 ML NEB 0800,1400,2000, (Reported ) L.acidoph & Paracasei,B.lactis 1 Each Capsule, 1 CAP PO DAILY, (Reported) Lorazepam 0.5 Mg Tablet, 0.5 MG PO DAILY, (Reported) Lorazepam 0.5 Mg Tablet, 1 MG PO HS, (Reported) TAKES 2 (0.5MG) TABLETS Magnesium Oxide 500 Mg Capsule, 500 MG PO DAILY, (Reported) Melatonin 10 Mg Tablet.er, 10 MG PO HS, (Reported) Pioglitazone HCl 15 Mg Tablet, 15 MG PO DAILY, (Reported) Venlafaxine HCl 150 Mg Cap.er.24h, 150 MG PO DAILY, (Reported) Patient Home Medication List Home Medication List Reviewed: Yes Review of Systems Review of Systems Constitutional: see HPI, malaise, weakness EENTM: see HPI Respiratory: no symptoms reported Cardiovascular: no symptoms reported Genitourinary: no symptoms reported Musculoskeletal: no symptoms reported Skin: no symptoms reported Psychiatric/Neurological: No Symptoms Reported Hematologic/Lymphatic: No Symptoms Reported Immunological/Allergic: no symptoms reported Past Hnwoban-Hpllvw-Twclzv Hx Patient Social History Type Used: Cigarettes Former Smoker, Quit: Jun 14, 2018 2nd Hand Smoke Exposure: No Recent Hopitalizations: Yes (JUL 03 2018: LEFT HIP REPLACEMENT) Immunizations Up To Date Tetanus Booster (TDap): Unknown PED Vaccines UTD: No Date of Pneumonia Vaccine: Jan 08, 2014 Date of Influenza Vaccine: Mar 10, 2018 Seasonal Allergies Seasonal Allergies: No Past Medical History Surgeries: Yes (CAROTID, STENTS, KYPHOPLASTY, L HIP, R ANKLE) Appendectomy, Coronary Stent, Eye Surgery, 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, Joint Replacement, Orthopedic Respiratory: No Cardiac: Yes (STENTS 2001) Coronary Artery Disease, Heart Attack, High Cholesterol Neurological: Yes Dementia, TIA 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 Disorders: No Female 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 Disorders: Denies 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, Menopausal Sexually Transmitted Disease: No HIV/AIDS: No Genitourinary: No Gastrointestinal: Yes Colitis, Gastroesophageal Reflux, Chronic Diarrhea Musculoskeletal: Yes (COMPR FX L1) Osteoporosis, Arthritis, Chronic Back Pain Endocrine: Yes Diabetes, Insulin dep HEENT: No Loss of Vision: Bilateral Hearing Impairment: Denies Cancer: No Psychosocial: Yes Anxiety Integumentary: No Recent Skin Changes Blood Disorders: No Adverse Reaction/Blood Tranf: No (N/A) Family Medical History Alzheimer's disease (dad) Arthritis (mom) Asthma (sister) Completed stroke (mom) Diabetes mellitus (mom) Fibrocystic disease of breast (sister) Hypercholesterolemia (mom) Hypertension (mom) Myocardial infarction (mom) Neoplasm Parkinson's disease Severe allergy (sister) No Family History of: AIDS Abdominal aortic aneurysm Austin's disease Alcoholism Aphasia Cancer of mouth Cardiovascular disease Cataracts Colon cancer Congenital disease Congenital heart disease Coronary thrombosis Cystic fibrosis Deafness or hearing loss Dementia Drug abuse Dysphasia Gastroenteritis Glaucoma Headache disorder Infertility Kidney disease Not obtainable due to adoption Osteoporosis (breast cancer) Prostate cancer Psychosocial problem Respiratory disorder Seizure disorder Thyroid disease Visual disorder No Pertinent Family Hx Physical Exam Vital Signs Vital Signs - First Documented 08/05/18 10:07 Temp 97.8 Pulse 88 Resp 30 B/P (MAP) 145/54 (84) Pulse Ox 100 O2 Delivery Room Air Capillary Refill : Height, Weight, BMI Height: 5'7.00" Weight: 130lbs. 0.0oz. 58.758897ar; 20.7 BMI Method:Stated General Appearance: No Apparent Distress, WD/WN Eyes: Bilateral Eye Normal Inspection, Bilateral Eye PERRL, Bilateral Eye EOMI HEENT: PERRL/EOMI, TMs Normal Neck: Full Range of Motion, Normal Inspection Respiratory: No Accessory Muscle Use, No Respiratory Distress Cardiovascular: Regular Rate, Rhythm, Normal Peripheral Pulses Gastrointestinal: Non Tender, Soft Back: Vertebral Tenderness Extremity: Normal Capillary Refill, Normal Inspection Neurologic/Psychiatric: Alert, Oriented x3, No Motor/Sensory Deficits Skin: Normal Color, Warm/Dry, Other (incision lateral left hip is intact, sutures remain in place, no surrounding erythema. Minimal sanguinous drainage on the dressing. ) Procedures/Interventions Lumen: triple Position: internal jugular (L) Anesthesia: Lidocaine Post Position: sutured, good blood return, position confirmed w/ CXR blue and white port aspirate and flush easily, the brown port flushes easily but does not aspirate. Believed to be against a vessel wall Progress/Results/Core Measures Suspected Sepsis SIRS Temperature: Pulse: Respiratory Rate: Laboratory Tests 08/06/18 04:28: White Blood Count 14.7H 08/07/18 03:45: White Blood Count 12.3H 08/08/18 05:30: White Blood Count 17.3H Blood Pressure / Mean: Laboratory Tests 08/06/18 04:28: Creatinine 0.77, Platelet Count 693H, Total Bilirubin 0.4 08/07/18 03:45: Creatinine 0.57L, Platelet Count 598H, Total Bilirubin 1.0 08/08/18 05:30: Creatinine 0.60, Platelet Count 597H, Total Bilirubin 0.4 Results/Orders Lab Results Laboratory Tests Test 08/06/18 20:01 08/07/18 00:35 08/07/18 03:45 08/07/18 06:09 Range/Units Glucometer 217 H 99 70-110 MG/DL Hemoglobin 9.4 L 10.0 L 11.5-16.0 G/DL Hematocrit 33 L 34 L 35-52 % White Blood Count 12.3 H 4.3-11.0 10^3/uL Red Blood Count 4.96 4.35-5.85 10^6/uL Mean Corpuscular Volume 68 L 80-99 FL Mean Corpuscular Hemoglobin 20 L 25-34 PG Mean Corpuscular Hemoglobin Concent 30 L 32-36 G/DL Red Cell Distribution Width 27.2 H 10.0-14.5 % Platelet Count 598 H 130-400 10^3/uL Mean Platelet Volume 9.6 7.4-10.4 FL Neutrophils (%) (Auto) 72 42-75 % Lymphocytes (%) (Auto) 14 12-44 % Monocytes (%) (Auto) 12 0-12 % Eosinophils (%) (Auto) 2 0-10 % Basophils (%) (Auto) 1 0-10 % Neutrophils # (Auto) 8.9 H 1.8-7.8 X 10^3 Lymphocytes # (Auto) 1.8 1.0-4.0 X 10^3 Monocytes # (Auto) 1.4 H 0.0-1.0 X 10^3 Eosinophils # (Auto) 0.2 0.0-0.3 10^3/uL Basophils # (Auto) 0.1 0.0-0.1 10^3/uL Sodium Level 140 135-145 MMOL/L Potassium Level 4.0 3.6-5.0 MMOL/L Chloride Level 113 H 98-107 MMOL/L Carbon Dioxide Level 17 L 21-32 MMOL/L Anion Gap 10 5-14 MMOL/L Blood Urea Nitrogen 9 7-18 MG/DL Creatinine 0.57 L 0.60-1.30 MG/DL Estimat Glomerular Filtration Rate > 60 BUN/Creatinine Ratio 16 Glucose Level 92 70-105 MG/DL Calcium Level 8.1 L 8.5-10.1 MG/DL Corrected Calcium 9.1 8.5-10.1 MG/DL Total Bilirubin 1.0 0.1-1.0 MG/DL Aspartate Amino Transf (AST/SGOT) 28 5-34 U/L Alanine Aminotransferase (ALT/SGPT) 15 0-55 U/L Alkaline Phosphatase 92 40-136 U/L Total Protein 5.8 L 6.4-8.2 GM/DL Albumin 2.7 L 3.2-4.5 GM/DL Test 08/07/18 10:57 08/07/18 15:33 08/07/18 20:03 08/08/18 05:30 Range/Units Glucometer 111 H 206 H 182 H 70-110 MG/DL White Blood Count 17.3 H 4.3-11.0 10^3/uL Red Blood Count 4.39 4.35-5.85 10^6/uL Hemoglobin 9.0 L 11.5-16.0 G/DL Hematocrit 30 L 35-52 % Mean Corpuscular Volume 69 L 80-99 FL Mean Corpuscular Hemoglobin 21 L 25-34 PG Mean Corpuscular Hemoglobin Concent 30 L 32-36 G/DL Red Cell Distribution Width 27.7 H 10.0-14.5 % Platelet Count 597 H 130-400 10^3/uL Mean Platelet Volume 9.4 7.4-10.4 FL Neutrophils (%) (Auto) 75 42-75 % Lymphocytes (%) (Auto) 11 L 12-44 % Monocytes (%) (Auto) 13 H 0-12 % Eosinophils (%) (Auto) 1 0-10 % Basophils (%) (Auto) 0 0-10 % Neutrophils # (Auto) 12.9 H 1.8-7.8 X 10^3 Lymphocytes # (Auto) 1.9 1.0-4.0 X 10^3 Monocytes # (Auto) 2.2 H 0.0-1.0 X 10^3 Eosinophils # (Auto) 0.2 0.0-0.3 10^3/uL Basophils # (Auto) 0.1 0.0-0.1 10^3/uL Sodium Level 139 135-145 MMOL/L Potassium Level 4.3 3.6-5.0 MMOL/L Chloride Level 114 H 98-107 MMOL/L Carbon Dioxide Level 14 L 21-32 MMOL/L Anion Gap 11 5-14 MMOL/L Blood Urea Nitrogen 5 L 7-18 MG/DL Creatinine 0.60 0.60-1.30 MG/DL Estimat Glomerular Filtration Rate > 60 BUN/Creatinine Ratio 8 Glucose Level 139 H 70-105 MG/DL Calcium Level 7.8 L 8.5-10.1 MG/DL Corrected Calcium 9.2 8.5-10.1 MG/DL Total Bilirubin 0.4 0.1-1.0 MG/DL Aspartate Amino Transf (AST/SGOT) 35 H 5-34 U/L Alanine Aminotransferase (ALT/SGPT) 12 0-55 U/L Alkaline Phosphatase 78 40-136 U/L Total Protein 5.2 L 6.4-8.2 GM/DL Albumin 2.3 L 3.2-4.5 GM/DL Test 08/08/18 05:46 08/08/18 09:05 08/08/18 11:07 08/08/18 12:21 Range/Units Glucometer 152 H 292 H 70-110 MG/DL Erythrocyte Sedimentation Rate 19 0-30 MM/HR C-Reactive Protein High Sensitivity 6.16 H 0.00-0.50 MG/DL Lab Scanned Report Transfusion Reaction Form [id number] Test 08/08/18 17:09 Range/Units Glucometer 266 H 70-110 MG/DL Micro Results Microbiology 08/07/18 Gram Stain, Resulted Pending 08/07/18 Anaerobic Culture, Resulted Pending 08/07/18 Surgical Culture - Preliminary, Resulted Corynebacterium striatum See Comments 08/07/18 Gram Stain, Resulted Pending 08/07/18 Anaerobic Culture, Resulted Pending 08/07/18 Surgical Culture - Preliminary, Resulted Corynebacterium striatum My Orders Vital Signs/I&O 08/08/18 08/08/18 08/08/18 08/08/18 07:13 08:00 08:10 12:00 Temp 98.6 98.2 Pulse 94 98 95 Resp 20 18 B/P (MAP) 109/53 (71) 118/59 (78) Pulse Ox 93 92 O2 Delivery Room Air Room Air Room Air 08/08/18 08/08/18 12:53 16:45 Temp 98.2 Pulse 94 98 Resp 19 B/P (MAP) 137/61 (86) Pulse Ox 98 O2 Delivery Room Air Capillary Refill : Departure Communication (Admissions) Time/Spoke to Admitting Phy: 13:[address] Wilks,. Will admit and use rocephin. Impression Primary Impression: UTI (urinary tract infection) Qualified Codes: N30.00 - Acute cystitis without hematuria Additional Impression: Sepsis Disposition: ADMITTED INPATIENT Condition: Stable Admissions Decision to Admit Reason: Admit from ER (General) Decision to Admit/Date: Aug 07, 2018 Time/Decision to Admit Time: 13:02 Departure-Patient Inst. Decision time for Depature: 11:20 Referrals: JOSEY RIDER DO (PCP/Family) Primary Care Physician Patient Instructions: Urinary Tract Infection, Adult (DC) ROBERT JAMISON APRN Aug 05, 2018 10:36
[2018-08-05 10:59] LABS: CLARITY,URINE CLEAR; COLOR,URINE YELLOW; GLUCOSE, URINE (UA) 4+ (NEGATIVE); KETONES,URINE NEGATIVE (NEGATIVE); LEUKOCYTE ESTERASE ,URINE 3+ (NEGATIVE); NITRITE,URINE NEGATIVE (NEGATIVE); PH,URINE 7 (5-9); PROTEIN,URINE 2+ (NEGATIVE); UROBILINOGEN,URINE 1 MG/DL (NORMAL)
[2018-08-05 11:11] LABS: BACTERIA,URINE MODERATE /HPF; BILIRUBIN,URINE 1+ (NEGATIVE); SQUAMOUS EPITHELIAL CELL,UR RARE /HPF; WBC,URINE >100 /HPF
[2018-08-05] MEDS ORDERED: cefTRIAXone FOR IV USE 1,000 MG in WATER (STERILE) FOR INJECTION 10 ML IV ONE (11:15)
[2018-08-05 11:20] LABS: BASOPHILS % (AUTO) 0 % (0-10); EOSINOPHILS # (AUTO) 0.1 10^3/uL (0.0-0.3); EOSINOPHILS % (AUTO) 0 % (0-10); HEMATOCRIT 27 % (35-52); HEMOGLOBIN 7.9 G/DL (11.5-16.0); LYMPHOCYTES # (AUTO) 1.8 X 10^3 (1.0-4.0); LYMPHOCYTES % (AUTO) 8 % (12-44); MEAN CORPUSCULAR HEMOGLOBIN 19 PG (25-34); MEAN CORPUSCULAR HGB CONC 29 G/DL (32-36); MEAN CORPUSCULAR VOLUME 65 FL (80-99); MEAN PLATELET VOLUME 9.8 FL (7.4-10.4); MONOCYTES # (AUTO) 1.8 X 10^3 (0.0-1.0); MONOCYTES % (AUTO) 8 % (0-12); NEUTROPHILS % (AUTO) 83 % (42-75); PLATELET COUNT 685 10^3/uL (130-400); RED CELL DISTRIBUTION WIDTH 26.7 % (10.0-14.5); WHITE BLOOD COUNT 21.7 10^3/uL (4.3-11.0)
[2018-08-05 11:44] LABS: ALBUMIN 2.9 GM/DL (3.2-4.5); BILIRUBIN,TOTAL 0.5 MG/DL (0.1-1.0); CALCIUM 8.3 MG/DL (8.5-10.1); CREATININE SERUM 1.01 MG/DL (0.60-1.30); POTASSIUM 4.5 MMOL/L (3.6-5.0); TOTAL PROTEIN 6.3 GM/DL (6.4-8.2)
--- NOTE | 2018-08-05 12:00 | NUR ---
Pt pulled out IV started by IV.
[2018-08-05 12:13] LABS: ANISOCYTOSIS MODERATE; BAND NEUTROPHILS 1 %; BASOPHILS % (MANUAL) 0 %; EOSINOPHILS % (MANUAL) 1 %; HYPOCHROMASIA SLIGHT; LYMPHOCYTES % (MANUAL) 13 %; MICROCYTOSIS SLIGHT; MONOCYTES % (MANUAL) 9 %; NEUTROPHILS % (MANUAL) 76 %; POIKILOCYTOSIS SLIGHT; TARGET CELLS SLIGHT
[2018-08-05] MEDS ORDERED: LORazepam INJ 2 MG/ML (ATIVAN) VIAL IVP PRN (12:15)
--- NOTE | 2018-08-05 12:15 | Diagnostic Imaging Report ---
PROCEDURE: CT thoracic and lumbar spine without contrast. TECHNIQUE: Multiple contiguous axial images were obtained through the thoracic and lumbar spine without the use of intravenous contrast. Sagittal and coronal reformations were then performed. INDICATION: Mid to low back pain. CT thoracic: There is normal kyphotic curvature to the thoracic spine. Vertebral body heights are maintained. No acute compression fracture is detected. There appears to be stent in the right carotid. Visualized lung leung are clear apart from some minimal linear scarring in the right lower lobe. Paraspinous tissues are unremarkable. CT lumbar: There is right convexity scoliotic curvature. There is normal lordotic curvature. Minimal retrolisthesis L4 on L5 is seen. There is compression fracture deformity involving the L1 vertebral body which has been treated with kyphoplasty. This is near vertebral plana in height. There is retropulsion of fracture fragments at this level producing a moderate narrowing of the canal. Remaining lumbar vertebrae show normal stature. Severe degenerative disc disease is seen L2-L3, L3-L4 and L4-L5 levels with disc space narrowing and vacuum disc phenomenon as well as marginal osteophyte formation. There appears to be central canal stenosis at these levels. Paraspinous tissues show the abdominal aorta and iliac vessels to be heavily calcified but not aneurysmal. IMPRESSION: 1. No acute thoracic or lumbar spinal fracture is identified. There is generalized spondylosis with multilevel lumbar spinal stenosis. There is a treated compression fracture at L1 which shows moderate retropulsion and central canal stenosis. No new compression fracture is seen. Dictated by: Dictated on workstation # [id number]
--- NOTE | 2018-08-05 12:35 | Diagnostic Imaging Report ---
INDICATION: Bladder infection. TIME OF EXAM: 11:53 AM Comparison is made with prior chest from 07/20/2018. FINDINGS: The heart size is normal. The lungs are clear. No infiltrates are seen. No effusion or pneumothorax is detected. IMPRESSION: No acute cardiopulmonary process is detected. Dictated by: Dictated on workstation # [id number]
[2018-08-05] MEDS ORDERED: LORazepam INJ 2 MG/ML (ATIVAN) VIAL IM PRN (13:00)
--- NOTE | 2018-08-05 13:21 | Diagnostic Imaging Report ---
CLINICAL INDICATION: Patient with post central line placement. EXAM: Portable chest x-ray upright view. COMPARISONS: Chest x-ray dated 08/05/2018 at 1153 hours. FINDINGS AND IMPRESSION: 1: There is interval placement of a left central line with the tip at the left innominate vein/SVC junction region. Central line should be advanced 3-4 cm if positioning within the distal superior vena cava is desired. 2: There is no pneumothorax or interval acute abnormality of the chest. 3: The remainder of this exam shows no significant interval change compared to the prior study of comparison. Dictated by: Dictated on workstation # [id number]
--- NOTE | 2018-08-05 13:25 | History & Physical-Hospitalist ---
History of Present Illness HPI/Chief Complaint Pt is a 77yoCF known to me from recent admission who presented to the ER due to lethargy. Patient is only able to tell me that she feels sick due to her baseline dementia. She has family at bedside who state that yesterday she started to complain of feeling sick and they thought she was more lethargic. They decided to bring her in for evaluation today where she was found to have a UTI and meet sepsis criteria and thus is being admitted. History is otherwise limited due to dementia. Her family did state she has been back home with them from the alf and saw Dr Velásquez on 08/02 for follow up of her hip fracture. Source: patient Exam Limitations: clinical condition Date Seen 08/05/18 Time Seen by a Provider: 13:24 Attending Physician Go House DO Referring Physician Date of Admission Home Medications & Allergies Home Medications Reviewed patient Home Medication Reconciliation performed by pharmacy medication reconciliations swimming pool service technician and/or nursing. Patients Allergies have been reviewed. Allergies Allergies Coded Allergies No Known Drug Allergies (Unverified01/29/17) Past Dtrmgbj-Wmxfct-Zuohlc Hx Past Med/Social Hx: Reviewed Nursing Past Med/Soc Hx Patient Social History Alcohol Use: Denies Use Recreational Drug Use: No Former Smoker, Quit: Jun 14, 2018 Type Used: Cigarettes 2nd Hand Smoke Exposure: No Recent Foreign Travel: No Contact w/other who traveled: No Recent Hopitalizations: Yes (JUL 03 2018: LEFT HIP REPLACEMENT) Recent Infectious Disease Expo: No Immunizations Up To Date Tetanus Booster (TDap): Unknown Pediatric: No Date of Pneumonia Vaccine: Jan 08, 2014 Date of Influenza Vaccine: Mar 10, 2018 Seasonal Allergies Seasonal Allergies: No Past Medical History Surgeries: Appendectomy, Coronary Stent, Eye Surgery, 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, Joint Replacement, Orthopedic Cardiac: Coronary Artery Disease, Heart Attack, High Cholesterol Neurological: Dementia, TIA 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: No Sexually Transmitted Disease: No HIV/AIDS: No Female 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 Disorders: Denies 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, Menopausal Gastrointestinal: Colitis, Gastroesophageal Reflux, Chronic Diarrhea Musculoskeletal: Osteoporosis, Arthritis, Chronic Back Pain Endocrine: Diabetes, Insulin dep Loss of Vision: Bilateral Hearing Impairment: Denies Psychosocial: Anxiety Skin/Integumentary: Recent Skin Changes History of Blood Disorders: No Adverse Reaction to Blood [place]: No (N/A) Family History Alzheimer's disease (dad) Arthritis (mom) Asthma (sister) Completed stroke (mom) Diabetes mellitus (mom) Fibrocystic disease of breast (sister) Hypercholesterolemia (mom) Hypertension (mom) Myocardial infarction (mom) Neoplasm Parkinson's disease Severe allergy (sister) No Family History of: AIDS Abdominal aortic aneurysm Placer's disease Alcoholism Aphasia Cancer of mouth Cardiovascular disease Cataracts Colon cancer Congenital disease Congenital heart disease Coronary thrombosis Cystic fibrosis Deafness or hearing loss Dementia Drug abuse Dysphasia Gastroenteritis Glaucoma Headache disorder Infertility Kidney disease Not obtainable due to adoption Osteoporosis (breast cancer) Prostate cancer Psychosocial problem Respiratory disorder Seizure disorder Thyroid disease Visual disorder No Pertinent Family Hx Review of Systems ROS-Unable to Obtain: limited due to dementia Constitutional: see HPI Gastrointestinal: abdominal pain Genitourinary: No dysuria Physical Exam Physical Exam Vital Signs Vital Signs - First Documented 08/05/18 10:07 Temp 97.8 Pulse 88 Resp 30 B/P (MAP) 145/54 (84) Pulse Ox 100 O2 Delivery Room Air Capillary Refill : Less Than 3 Seconds Height, Weight, BMI Height: 5'7.00" Weight: 130lbs. 0.0oz. 58.880300ow; 20.7 BMI Method:Stated General Appearance: No Apparent Distress, Chronically ill, Thin HEENT: PERRL/EOMI, Moist Mucous Membranes; No Scleral Icterus (L), No Scleral Icterus (R) Neck: Normal Inspection, Supple; No Thyromegaly Respiratory: Lungs Clear, No Accessory Muscle Use, No Respiratory Distress Cardiovascular: Regular Rate, Rhythm, No Murmur Gastrointestinal: Normal Bowel Sounds, Non Tender, Soft Extremity: No Calf Tenderness, No Pedal Edema, Other (left food wrapped in gauze) Neurologic/Psychiatric: Alert, Disoriented Skin: Normal Color, Warm/Dry Results Results/Procedures Labs Laboratory Tests 08/05/18 11:11 Patient resulted labs reviewed. Imaging: Reviewed Imaging Report Imaging Date of Exam:08/05/18 CHEST 1 VIEW, AP/PA ONLY INDICATION: Bladder infection. TIME OF EXAM: 11:53 AM Comparison is made with prior chest from 07/20/2018. FINDINGS: The heart size is normal. The lungs are clear. No infiltrates are seen. No effusion or pneumothorax is detected. Assessment/Plan Admission Diagnosis Sepsis Admission Status: Inpatient Order (span 2 midnights) Reason for Inpatient Admission: IV antibiotics, await cultures, chronic comorbidities Diagnosis/Problems Diagnosis/Problems (1) Sepsis Status: Acute Assessment & Plan: Leukocytosis with tachypnea UTI as source Continue Rocephin Await cultures No severe sepsis criteria met Qualifiers: Sepsis type: sepsis due to unspecified organism Qualified Codes: A41.9 - Sepsis, unspecified organism (2) UTI (urinary tract infection) Status: Acute Assessment & Plan: Rocephin as above Reviewed previous cultures that grew strep so should be sensitive Qualifiers: Urinary tract infection type: acute cystitis Hematuria presence: without hematuria Qualified Codes: N30.00 - Acute cystitis without hematuria (3) Dementia Assessment & Plan: At baseline mentation Reorient as needed Qualifiers: Dementia type: unspecified type Dementia behavioral disturbance: without behavioral disturbance Qualified Codes: F03.90 - Unspecified dementia without behavioral disturbance (4) CAD (coronary artery disease) Status: Chronic Assessment & Plan: Resume home meds Qualifiers: Coronary Disease-Associated Artery/Lesion type: [place] artery [place] vs. transplanted heart: [place] heart Associated angina: without angina Qualified Codes: I25.10 - Atherosclerotic heart disease of [place] coronary artery without angina pectoris (5) Peripheral arterial disease Assessment & Plan: Healing wound on foot from this Continue wound care BRENDA HERNANDEZ MD Aug 05, 2018 13:25
[2018-08-05] MEDS ORDERED: NS IV 1000 ML 1,769.01 ML IV ONE (15:00)
--- NOTE | 2018-08-05 15:00 | NUR ---
EDEL HERRERA admitted to room 422-1, with an admitting diagnosis of uti sepsis, on 08/05/18 from ED via bed, accompanied by staff and family.EDEL HERRERA introduced to surroundings, call light, bed controls, phone, TV, temperature control, lights, meal times, smoking policy, visitor policy, side rail policy, bathrooms and showers. Patient Rights given to patient in the handbook. EDEL HERRERA verbalizes understanding that [facility] is not responsible for the loss or damage to any personal effects or valuables that are kept in the patients posession during their hospitalization. The Patient's Care Plans were discussed with the patient as well as Discharge Planning. EDEL HERRERA verbalizes understanding of Interdisciplinary Patient Education. Patient and/or family were informed about the Rapid Response Team and its purpose.
[2018-08-05 15:09] VITALS: BP 132/63
[2018-08-05] MEDS ORDERED: CATHETER FLUSH 10 ML SYR IV PRN (15:15)
[2018-08-05] MEDS ORDERED: CYPR4TAB41 PO (15:41)
[2018-08-05] MEDS ORDERED: FERR-65 PO (15:41)
--- NOTE | 2018-08-05 15:42 | NUR ---
UPDATED AND REVIEWED MED REC WITH THE DETAILED LIST OF MEDICATIONS BROUGHT IN BY THE PATIENTS FAMILY. SHE HAS A CAREGIVER THAT SETS UP HER MEDS AND THIS LIST IS A REFLECTION OF HOW THEY ARE SET UP.
[2018-08-05 16:00] VITALS: BP 132/63
[2018-08-05] MEDS: NS IV 1000 ML 1,000 ML IV SCH ×2 (16:10→20:20)
[2018-08-05 20:00] VITALS: BP 130/63
[2018-08-05] MEDS ORDERED: MILK OF MAGNESIA 400 MG/5 ML 30 ML UDC PO PRN (21:00)
[2018-08-05] MEDS ORDERED: ANTACID SUSP 30 ML UDC (MYLANTA) PO PRN (21:00)
[2018-08-05] MEDS ORDERED: ONDANSETRON 4 MG/2 ML (SDV) Z0FRAN IV PRN (21:00)
[2018-08-05] MEDS ORDERED: BENZONATATE 100 MG (TESSALON) CAPSULE PO PRN (21:00)
[2018-08-05] MEDS ORDERED: NON-FORMULARY MEDICATION 1 EA EA (Melatonin 10 MG) PO SCH (21:00)
[2018-08-05] MEDS ORDERED: NON-FORMULARY MEDICATION 1 EA EA (Donepezil HCl 10 MG) PO SCH (21:00)
[2018-08-05] MEDS ORDERED: BISACODYL 10 MG SUPP (DULCOLAX) PR PRN (21:00)
[2018-08-05] MEDS ORDERED: CYPROHEPTADINE HCL 4 MG PO SCH (21:00)
[2018-08-05] MEDS ORDERED: INSULIN GLARGINE HUM REC ANLOG 23 UNIT SQ SCH (21:00)
[2018-08-05] MEDS ORDERED: ACETAMINOPHEN 325 MG TABLET PO PRN (21:00)
--- NOTE | 2018-08-05 21:00 | NUR ---
Daughter at bedside, pt pulled out left IJ. This RN et Alice Chow RN held pressure et removed sutures to pt's left neck. Gauze et tegaderm dressing applied. New 20 gauge IV inserted into left AC by Alice Chow RN. [place] splint applied. Will continue to monitor.
--- NOTE | 2018-08-05 21:45 | NUR ---
Pt ACHS blood sugar reading is 70. Pt took 2 sips of orange juice then refused any more. This RN notified Dr. Wilks of blood sugar to ascertain if a switch to fluids with dextrose r/t pt's refusal to eat or drink. Orders received to reduce current NS fluid rate to 100 ml/hr et hold HS Levemir dose.
[2018-08-05] MEDS: inSUlin ASPART (NovoLOG) 1 UNIT/0.01 ML (CHARGE PER UNIT) SC SCH (21:47)
[2018-08-05] MEDS: LORazepam 0.5 MG (ATIVAN) TABLET PO SCH (21:55)
[2018-08-06] VITALS (10 sets, daily range): BP systolic 111–169; BP diastolic 54–84
[2018-08-06] MEDS: NS IV 1000 ML 1,000 ML IV SCH ×3 (04:37→14:09)
[2018-08-06 04:47] LABS: BASOPHILS % (AUTO) 0 % (0-10); EOSINOPHILS # (AUTO) 0.2 10^3/uL (0.0-0.3); EOSINOPHILS % (AUTO) 1 % (0-10); HEMATOCRIT 28 % (35-52); LYMPHOCYTES # (AUTO) 1.7 X 10^3 (1.0-4.0); LYMPHOCYTES % (AUTO) 12 % (12-44); MEAN CORPUSCULAR HEMOGLOBIN 19 PG (25-34); MEAN CORPUSCULAR HGB CONC 29 G/DL (32-36); MEAN CORPUSCULAR VOLUME 64 FL (80-99); MEAN PLATELET VOLUME 9.8 FL (7.4-10.4); MONOCYTES # (AUTO) 1.4 X 10^3 (0.0-1.0); MONOCYTES % (AUTO) 9 % (0-12); NEUTROPHILS # (AUTO) 11.4 X 10^3 (1.8-7.8); NEUTROPHILS % (AUTO) 78 % (42-75); PLATELET COUNT 693 10^3/uL (130-400); RED CELL DISTRIBUTION WIDTH 27.5 % (10.0-14.5); WHITE BLOOD COUNT 14.7 10^3/uL (4.3-11.0)
[2018-08-06 05:08] LABS: ALANINE AMINOTRANSFERASE 12 U/L (0-55); ALBUMIN 2.8 GM/DL (3.2-4.5); ALKALINE PHOSPHATASE 94 U/L (40-136); BILIRUBIN,TOTAL 0.4 MG/DL (0.1-1.0); BUN/CREATININE RATIO 26; CALCIUM 8.1 MG/DL (8.5-10.1); CARBON DIOXIDE 18 MMOL/L (21-32); CHLORIDE 109 MMOL/L (98-107); CREATININE SERUM 0.77 MG/DL (0.60-1.30); GFR ESTIMATED > 60; GLUCOSE 82 MG/DL (70-105); SODIUM 136 MMOL/L (135-145); TOTAL PROTEIN 6.1 GM/DL (6.4-8.2)
[2018-08-06] MEDS: inSUlin ASPART (NovoLOG) 1 UNIT/0.01 ML (CHARGE PER UNIT) SC SCH ×4 (06:05→21:56)
--- NOTE | 2018-08-06 06:29 | NUR ---
Pt has not urinated overnight. Bladder scan revealed 672 mL urine in bladder at this time. Dr. Wilks notified. Orders received to straight catheterize pt at this time.
[2018-08-06] MEDS: VENLAFAXINE 50 MG (EFFEXOR) TABLET PO SCH (06:33)
[2018-08-06] MEDS: CYPROHEPTADINE (PERIACTIN) 4 MG TAB PO SCH ×2 (08:08→21:52)
[2018-08-06] MEDS: CLOPIDOGREL 75 MG (PLAVIX) TABLET PO SCH ×2 (08:08→10:21)
[2018-08-06] MEDS: LACTOBACILLUS ACIDOPHILUS (PROBIOTIC) CAPSULE PO SCH (08:08)
[2018-08-06] MEDS: PANTOPRAZOLE 40 MG (PROTONIX) TAB PO SCH (08:08)
[2018-08-06] MEDS: LORazepam 0.5 MG (ATIVAN) TABLET PO SCH ×2 (08:08→21:52)
[2018-08-06] MEDS: ASPIRIN 81 MG CHEW (CHILDREN'S ASA) PO SCH ×2 (08:08→10:21)
[2018-08-06] MEDS: ATORVASTATIN 80 MG (LIPITOR) TABLET PO SCH (08:11)
[2018-08-06] MEDS ORDERED: NON-FORMULARY MEDICATION 1 EA EA (Esomeprazole Magnesium (Nexium) 40 MG) PO SCH (09:00)
[2018-08-06] MEDS ORDERED: NON-FORMULARY MEDICATION 1 EA EA (L.acidoph & Paracasei,B.lactis (Probiotic) 1 CAP) PO SCH (09:00)
[2018-08-06] MEDS ORDERED: NON-FORMULARY MEDICATION 1 EA EA (Aspirin (Aspir 81) 81 MG) PO SCH (09:00)
[2018-08-06] MEDS ORDERED: NON-FORMULARY MEDICATION 1 EA EA (Venlafaxine HCl (Venlafaxine HCl ER) 150 MG) PO SCH (09:00)
--- NOTE | 2018-08-06 09:00 | NUR ---
DR. HERNANDEZ NOTIFIED OF PT. HAVING LARGE AMT. BLOODY DRAINAGE FROM LEFT HIP. NEW ORDER'S NOTED. Addendum: 08/06/18 at 1859 by JONATHAN MOLIAN RN NOTIFIED AT 10:22 AM ( WRONG TIME )
--- NOTE | 2018-08-06 09:30 | Progress Note-Hospitalist ---
Subjective HPI/CC On Admission Date Seen by Provider: Aug 06, 2018 Time Seen by Provider: 09:25 Pt is a 77yoCF known to me from recent admission who presented to the ER due to lethargy. Patient is only able to tell me that she feels sick due to her baseline dementia. She has family at bedside who state that yesterday she started to complain of feeling sick and they thought she was more lethargic. They decided to bring her in for evaluation today where she was found to have a UTI and meet sepsis criteria and thus is being admitted. History is otherwise limited due to dementia. Her family did state she has been back home with them from the skilled nursing and saw Dr Velásquez on 08/02 for follow up of her hip fracture. Subjective/Events-last exam Pt reports feeling better. Mentation improved from yesterday. family at bedside states she looks better as well. Otherwise no complaints. Sitting in chair eating pancakes. Focused Exam Lactate Level 08/05/18 13:20: Lactic Acid Level 0.80 Objective Exam Vital Signs Vital Signs Date Time Temp Pulse Resp B/P (MAP) Pulse Ox O2 Delivery O2 Flow Rate FiO2 08/06/18 08:00 97.6 86 18 133/79 (97) 98 Room Air Capillary Refill : Less Than 3 SecondsLess Than 3 Seconds General Appearance: No Apparent Distress, Chronically ill, Thin HEENT: No Scleral Icterus (L), No Scleral Icterus (R) Neck: No Thyromegaly Respiratory: Lungs Clear, No Accessory Muscle Use, No Respiratory Distress Cardiovascular: Regular Rate, Rhythm, No Murmur Gastrointestinal: Normal Bowel Sounds, Non Tender, Soft Extremity: No Calf Tenderness, No Pedal Edema, Other (left food wrapped in gauze) Neurologic/Psychiatric: Alert, Disoriented Results/Procedures Lab Laboratory Tests 08/05/18 11:11 08/06/18 04:28 Patient resulted labs reviewed. Imaging: Reviewed Imaging Report Assessment/Plan Assessment and Plan Assess & Plan/Chief Complaint Sepsis Diagnosis/Problems Diagnosis/Problems (1) Sepsis Status: Acute Assessment & Plan: Leukocytosis improving UTI as source Continue Rocephin Await cultures Qualifiers: Sepsis type: sepsis due to unspecified organism Qualified Codes: A41.9 - Sepsis, unspecified organism (2) UTI (urinary tract infection) Status: Acute Assessment & Plan: Rocephin as above Reviewed previous cultures that grew strep so should be sensitive Await current cultures Qualifiers: Urinary tract infection type: acute cystitis Hematuria presence: without hematuria Qualified Codes: N30.00 - Acute cystitis without hematuria (3) Dementia Assessment & Plan: At baseline Reorient as needed Qualifiers: Dementia type: unspecified type Dementia behavioral disturbance: without behavioral disturbance Qualified Codes: F03.90 - Unspecified dementia without behavioral disturbance (4) CAD (coronary artery disease) Status: Chronic Assessment & Plan: Resume home meds Qualifiers: Coronary Disease-Associated Artery/Lesion type: [place] artery [place] vs. transplanted heart: [place] heart Associated angina: without angina Qualified Codes: I25.10 - Atherosclerotic heart disease of [place] coronary artery without angina pectoris (5) Peripheral arterial disease Assessment & Plan: Healing wound on foot from this Continue wound care (6) Insulin dependent diabetes mellitus Assessment & Plan: Was mildly hypoglycemic last night so levemir held Fasting blodo sugar was 82 this AM Will DC levemir and monitor to avoid hypoglycemia Continue SSI (7) Microcytic anemia Status: Chronic Assessment & Plan: Giving CAD and PAD goal Hgb 8 At goal today Consider Infed when blood cultures available and negative Will hold lovenox for anemia currently Clinical Quality Measures DVT/VTE Risk/Contraindication: Risk Factor Score Per Nursin RFS Level Per Nursing on Admit: 4+=Very High BRENDA HERNANDEZ MD Aug 06, 2018 09:30
--- NOTE | 2018-08-06 10:22 | NUR ---
DR. HERNANDEZ NOTIFIED OF PT HAVING LARGE AMT. BLEEDING FROM LEFT INC. AREA. HELD ASA AND PLAVIX. DR. VARMA NOTIFIED BY DR. HERNANDEZ.
--- NOTE | 2018-08-06 10:34 | Physical Therapy Evaluation ---
PT Evaluation-General Medical Diagnosis Admission Date Aug 05, 2018 at 13:00 Medical Diagnosis: UTI/sepsis Onset Date: Aug 05, 2018 Therapy Diagnosis Therapy Diagnosis: severe debility/weakness Height/Weight Height (Feet): 5 Height (Inches): 4.00 Weight (Pounds): 110 Weight (Ounces): 0.0 Precautions Precautions/Isolations: Fall Prevention, Standard Precautions Weight Bear Status Right Lower Extremity: Right Weight Bearing/Tolerated Left Lower Extremity: Left Weight Bearing/Tolerated Referral Physician: Efe Reason for Referral: Evaluation/Treatment Medical History Pertinent Medical History: Arthritis, CAD, DM, Dementia, GERD, [place], Smoking Current History EMS from home with family secondary to inability to ambulate, not eating or drinking per family report Reviewed History: Yes Social History Home: Single Level Current Living Status: Children Prior/[facility] Prior Level of Function Therapy Code Descriptions/Definitions Functional [place] Measure: 0=Not Assessed/NA 4=Minimal Assistance 1=Total Assistance 5=Supervision or Setup 2=Maximal Assistance 6=Modified [place] 3=Moderate Assistance 7=Complete [place] Therapy Quality Codes: 6 Independent with activity with or without an assistive device 5 Patient requires set up or clean up by helper. Patient completes activity by themselves 4 Supervision or touching assist (CGA). [place] provide cues , steadying assist 3 The helper provides less than half the effort to complete the activity 2 The helper provides more than half the effort to complete the activity 1 Dependent. The helper does all the effort to complete an activity 7 Patient refused to complete or attempt activity 9 The patient did not perform the activity before the current illness or injury 88 Not attempted due to Medical conditions or safety concerns Functional Abilities and Goals: Independent: Patient completed the activities by him/herself, with or without an assistive device, with no assistance from a helper. Needed Some Help: Patient needed partial assistance from another person to complete activities. Dependent: A helper completed the activities for the patient. Unknown: Not Applicable: Bed Mobility: 2 Transfers (B,C,W/C) (FIM): 2 Gait: 1 Indoor Mobility (Ambulation): Dependent Prior Devices Use: Walker PT Evaluation-Current Subjective Family agree to PT. Patient is very lethargic and confused. Objective Patient Orientation: Confused, Listless Problem Solving: Poor Attachments: IV ROM/Strength ROM Lower Extremities bilateral LE WFL Strength Lower Extremities 3-/5 right LE/ 2+/5 left LE Integumentary/Posture Integumentary refer to nursing notes Bowel Incontinence: Yes Bladder Incontinence: Yes Posture kyphotic Neuromuscular (Tone, Coordination, Reflexes) severely diminished coordination due to weakness Sensory Vision: Unable to Assess Hearing: Functional Sensation Right Lower Extremit: Impaired Sensation Left Lower Extremity: Impaired Transfers Therapy Code Descriptions/Definitions Functional [place] Measure: 0=Not Assessed/NA 4=Minimal Assistance 1=Total Assistance 5=Supervision or Setup 2=Maximal Assistance 6=Modified [place] 3=Moderate Assistance 7=Complete [place] Transfers (B, C, W/C) (FIM): 1 Scootin Rollin Supine to/from Sit: 1 Sit to/from Stand: 1 Patient unable to stand with FWW and dependent assist of 2 with severe lean to right Balance Sitting Static: Poor Sitting Dynamic: Poor Standing Static: Poor Assessment/Needs 77 y.o. female, will benefit from skilled PT to address functional strength and mobility to improve current LOF and to return to home with family at maximum LOF. Rehab Potential: Guarded PT Halfway Goals Halfway Goals PT Manager Domestic Goals Time Frame: Aug 20, 2018 Transfers (B,C,W/C) (FIM): 3 Gait (FIM): 1 Gait distance (FIM): 1=up to 49 ft Distance: 45' Gait Level of Assist: 3 Gait Assistive Device: FWW PT Plan Problem List Problem List: Activity Tolerance, Functional Strength, Safety, Balance, Gait, Transfer, Bed Mobility Treatment/Plan Treatment Plan: Continue Plan of Care Treatment Plan: Bed Mobility, Education, Functional Activity Cor[place], Functional Strength, Gait, Safety, Therapeutic Exercise, Transfers Treatment Duration: Aug 20, 2018 Frequency: 6 times per week Estimated Hrs Per Day: .25 hour per day Patient and/or Family Agrees t: Yes Discharge Recommendations Therapy D/C Recommendations: Home w/ Family Support Time/GCodes Time In: 1006 Time Out: 1021 Total Billed Treatment Time: 15 [facility] VIV[facility]E MATT PT Aug 06, 2018 10:34
--- NOTE | 2018-08-06 13:55 | NUR ---
PT. CONT. TO HAVE LARGE AMT. SEROSANGUINEOUS DRAINAGE TO LEFT HIP.
--- NOTE | 2018-08-06 14:00 | NUR ---
DR. VARMA HERE AND OPENED SMALL AREA OF INC. TO LEFT HIP AND REMOVED LARGE AMT. DARK RED CLOTS WITH MOD AMT. PINKISH AND REDDISH DRAINAGE FROM LEFT HIP. STERILE DRESSING APPLIED.
[2018-08-06] MEDS: cefTRIAXone 1,000 MG/SWFI 10 ML IV PUSH IV SCH ×2 (14:05)
--- NOTE | 2018-08-06 15:01 | Consultation ---
History of Present Illness History of Present Illness Patient Consulted On(holden/time) 08/06/18 14:58 Time Seen by Provider: 14:58 Reason for Visit: Urosepsis History of Present Illness 77 y/o white female s/p left hip ashley-arthroplasty, was draining from her hip, with small open wound. Persistent drainage. No other complaints. Allergies and Home Medications Allergies Coded Allergies: No Known Drug Allergies (Unverified , 01/29/17) Home Medications Albuterol/Ipratropium 4 Gm Aero, 1 PUFF INH 0800,1130,1500,1830 PRN for IF UNABLE TO USE DUONEB, (Reported) Aspirin 81 Mg Tablet.dr, 81 MG PO DAILY, (Reported) Atorvastatin Calcium 80 Mg Tablet, 80 MG PO DAILY, (Reported) Canagliflozin 100 Mg Tablet, 100 MG PO DAILY, (Reported) Clopidogrel Bisulfate 75 Mg Tablet, 75 MG PO DAILY, (Reported) Cranberry Extract 500 Mg Tablet, 1,500 MG PO HS, (Reported) Cyanocobalamin 1,000 Mcg/Ml Inj, 1,000 MCG IJ OF MONTH, (Reported) Cyproheptadine HCl 4 Mg Tablet, 4 MG PO BID, (Reported) Diclofenac Sodium 100 Gm Gel..gram., TOP BID PRN for ARTHRITIS PAIN, (Reported) APPLY TO RIGHT HAND Donepezil HCl 10 Mg Tablet, 10 MG PO HS, (Reported) Ergocalciferol (Vitamin D2) 50,000 Unit Capsule, 50,000 UNITS PO Mo, (Reported) Esomeprazole Magnesium 40 Mg Cap, 40 MG PO DAILY, (Reported) Ferrous Sulfate 325 Mg Tablet, 325 MG PO DAILY, (Reported) Glucagon,Human Recombinant 1 Mg Vial, 1 MG INJ UD PRN for BLOOD SUGAR, (Reported ) Insulin Aspart 100 Unit/1 Ml Susp, SC AC, (Reported) BELOW 100 = 0 UNITS 100-130 = 2 UNITS 131-160 = 3 UNITS 161-190 = 4 UNITS 191 OR HIGHER = 5 UNITS Insulin Glargine,Hum.rec.anlog 100 Unit/1 Ml Vial, 23 UNIT SQ HS, (Reported) Ipratropium/Albuterol Sulfate 3 Ml Ampul.neb, 3 ML NEB 0800,1400,2000, (Reported ) L.acidoph & Paracasei,B.lactis 1 Each Capsule, 1 CAP PO DAILY, (Reported) Lorazepam 0.5 Mg Tablet, 0.5 MG PO DAILY, (Reported) Lorazepam 0.5 Mg Tablet, 1 MG PO HS, (Reported) TAKES 2 (0.5MG) TABLETS Magnesium Oxide 500 Mg Capsule, 500 MG PO DAILY, (Reported) Melatonin 10 Mg Tablet.er, 10 MG PO HS, (Reported) Pioglitazone HCl 15 Mg Tablet, 15 MG PO DAILY, (Reported) Venlafaxine HCl 150 Mg Cap.er.24h, 150 MG PO DAILY, (Reported) Patient Home Medication List Home Medication List Reviewed: Yes Past Icsiyec-Adqnpw-Ptoujq Hx Past Med/Social Hx: Reviewed Nursing Past Med/Soc Hx Patient Social History Alcohol Use: Denies Use Recreational Drug Use: No Type Used: Cigarettes Former Smoker, Quit: Jun 14, 2018 2nd Hand Smoke Exposure: No Recent Foreign Travel: No Contact w/Someone Who Travel: No Recent Infectious Disease Expo: No Recent Hopitalizations: Yes (JUL 03 2018: LEFT HIP REPLACEMENT) Physical Abuse: No Sexual Abuse: No Immunizations Up To Date Tetanus Booster (TDap): Unknown PED Vaccines UTD: No Date of Pneumonia Vaccine: Jan 08, 2014 Date of Influenza Vaccine: Mar 10, 2018 Seasonal Allergies Seasonal Allergies: No Past Medical History Surgeries: Yes (CAROTID, STENTS, KYPHOPLASTY, L HIP, R ANKLE) Appendectomy, Coronary Stent, Eye Surgery, 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, Joint Replacement, Orthopedic Respiratory: No Cardiac: Yes (STENTS 2001) Coronary Artery Disease, Heart Attack, High Cholesterol Neurological: Yes Dementia, TIA 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 Disorders: No Female 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 Disorders: Denies [employer]IGH [employer] 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 History: 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, Menopausal Sexually Transmitted Disease: No HIV/AIDS: No Genitourinary: No Gastrointestinal: Yes Colitis, Gastroesophageal Reflux, Chronic Diarrhea Musculoskeletal: Yes (COMPR FX L1) Osteoporosis, Arthritis, Chronic Back Pain Endocrine: Yes Diabetes, Insulin dep HEENT: No Loss of Vision: Bilateral Hearing Impairment: Denies Cancer: No Psychosocial: Yes Anxiety Integumentary: No Recent Skin Changes Blood Disorders: No Adverse Reaction/Blood Tranf: No (N/A) Family Medical History Alzheimer's disease (dad) Arthritis (mom) Asthma (sister) Completed stroke (mom) Diabetes mellitus (mom) Fibrocystic disease of breast (sister) Hypercholesterolemia (mom) Hypertension (mom) Myocardial infarction (mom) Neoplasm Parkinson's disease Severe allergy (sister) No Family History of: AIDS Abdominal aortic aneurysm Delbert's disease Alcoholism Aphasia Cancer of mouth Cardiovascular disease Cataracts Colon cancer Congenital disease Congenital heart disease Coronary thrombosis Cystic fibrosis Deafness or hearing loss Dementia Drug abuse Dysphasia Gastroenteritis Glaucoma Headache disorder Infertility Kidney disease Not obtainable due to adoption Osteoporosis (breast cancer) Prostate cancer Psychosocial problem Respiratory disorder Seizure disorder Thyroid disease Visual disorder No Pertinent Family Hx Review of Systems-General Constitutional: no symptoms reported Respiratory: no symptoms reported Cardiovascular: no symptoms reported Gastrointestinal: no symptoms reported Genitourinary: no symptoms reported Physical Exam-General Problems Physical Exam Vital Signs Vital Signs - First Documented 08/05/18 10:07 Temp 97.8 Pulse 88 Resp 30 B/P (MAP) 145/54 (84) Pulse Ox 100 O2 Delivery Room Air Capillary Refill : Less Than 3 SecondsLess Than 3 Seconds General Appearance: no apparent distress Neck: supple, normal inspection Respiratory: no respiratory distress, no accessory muscle use Cardiovascular: regular rate, rhythm Gastrointestinal: soft Extremities: other (small opening at inferior aspest of incision, with persistent bloody drainage, with palpable space, and large volume of bloody, slightly purlent material present.) Assessment/Plan Assessment/Plan Admission Status: Inpatient Order (span 2 midnights) Reason for Inpatient Admission: UTI Persistent Left hip wound drainage, plan I&D Clinical Quality Measures DVT/VTE Risk/Contraindication: Risk Factor Score Per Nursin RFS Level Per Nursing on Admit: 4+=Very High URI VARMA MD Aug 06, 2018 15:01
[2018-08-06] MEDS ORDERED: NS IV 500 ML 500 ML ONE (20:16)
[2018-08-06] MEDS ORDERED: NS IV 500 ML 500 ML IV ONE (20:30)
[2018-08-06] MEDS: MELATONIN 3 MG TABLET PO SCH (21:51)
[2018-08-06] MEDS: DONEPEZIL 10 MG (ARICEPT) TAB PO SCH (21:51)
[2018-08-07] VITALS (7 sets, daily range): BP systolic 113–156; BP diastolic 61–68
[2018-08-07 00:42] LABS: HEMOGLOBIN 9.4 G/DL (11.5-16.0)
[2018-08-07] MEDS: NS IV 1000 ML 1,000 ML IV SCH ×3 (02:24→18:18)
[2018-08-07 03:56] LABS: BASOPHILS # (AUTO) 0.1 10^3/uL (0.0-0.1); BASOPHILS % (AUTO) 1 % (0-10); EOSINOPHILS # (AUTO) 0.2 10^3/uL (0.0-0.3); EOSINOPHILS % (AUTO) 2 % (0-10); HEMATOCRIT 34 % (35-52); LYMPHOCYTES # (AUTO) 1.8 X 10^3 (1.0-4.0); LYMPHOCYTES % (AUTO) 14 % (12-44); MEAN CORPUSCULAR HEMOGLOBIN 20 PG (25-34); MEAN CORPUSCULAR HGB CONC 30 G/DL (32-36); MEAN CORPUSCULAR VOLUME 68 FL (80-99); MEAN PLATELET VOLUME 9.6 FL (7.4-10.4); MONOCYTES # (AUTO) 1.4 X 10^3 (0.0-1.0); MONOCYTES % (AUTO) 12 % (0-12); NEUTROPHILS # (AUTO) 8.9 X 10^3 (1.8-7.8); NEUTROPHILS % (AUTO) 72 % (42-75); PLATELET COUNT 598 10^3/uL (130-400); RED CELL DISTRIBUTION WIDTH 27.2 % (10.0-14.5); WHITE BLOOD COUNT 12.3 10^3/uL (4.3-11.0)
[2018-08-07 04:26] LABS: ALANINE AMINOTRANSFERASE 15 U/L (0-55); ALBUMIN 2.7 GM/DL (3.2-4.5); ALKALINE PHOSPHATASE 92 U/L (40-136); BUN/CREATININE RATIO 16; CALCIUM 8.1 MG/DL (8.5-10.1); CARBON DIOXIDE 17 MMOL/L (21-32); CHLORIDE 113 MMOL/L (98-107); CREATININE SERUM 0.57 MG/DL (0.60-1.30); GFR ESTIMATED > 60; GLUCOSE 92 MG/DL (70-105); SODIUM 140 MMOL/L (135-145); TOTAL PROTEIN 5.8 GM/DL (6.4-8.2)
[2018-08-07] MEDS: inSUlin ASPART (NovoLOG) 1 UNIT/0.01 ML (CHARGE PER UNIT) SC SCH ×4 (06:13→21:25)
[2018-08-07] MEDS: VENLAFAXINE 50 MG (EFFEXOR) TABLET PO SCH (06:13)
[2018-08-07] MEDS ORDERED: GENTAMICIN 40 MG/ML 2 ML INJ SDV ONE (07:05)
[2018-08-07] MEDS ORDERED: proPOfol 200 MG/20 ML (DIPRIVAN) VIAL IV ONE (07:13)
[2018-08-07] MEDS ORDERED: ROCURONIUM 10 MG/ML 5 ML SYRINGE IV ONE (07:13)
[2018-08-07] MEDS ORDERED: SEVOFLURANE (ULTANE) 15 ML INHAL SOLN ONE ×2 (07:13→09:13)
[2018-08-07] MEDS ORDERED: LIDOCAINE PF 2% 5 ML (XYLOCAINE) VIAL ONE (07:13)
[2018-08-07] MEDS ORDERED: fentaNYL INJECTION 100 MCG/2 ML AMP ONE (07:13)
[2018-08-07] MEDS ORDERED: ETOMIDATE IV SOLN 20 MG/10 ML VIAL ONE (07:15)
[2018-08-07] MEDS ORDERED: ONDANSETRON 4 MG/2 ML (SDV) Z0FRAN ONE (07:17)
--- NOTE | 2018-08-07 08:15 | NUR ---
TO OR PER BED.
[2018-08-07] MEDS ORDERED: VANCOMYCIN 1000 MG/VIAL ONE (08:20)
[2018-08-07] MEDS ORDERED: NS IV 500 ML 500 ML ONE (08:21)
[2018-08-07] MEDS ORDERED: LACTATED RINGERS 1,000 ML IV PRN (08:35)
[2018-08-07] MEDS ORDERED: HYDROmorphone 2 MG/ML VIAL (DILAUDID) ONE (08:39)
[2018-08-07] MEDS ORDERED: NEOSTIGMINE 1 MG/ML 5 ML SYRINGE ONE ×2 (08:54→09:13)
[2018-08-07] MEDS ORDERED: GLYCOPYRROLATE 0.2 MG/ML (ROBINUL) 2 ML VIAL ONE (08:54)
[2018-08-07] MEDS ORDERED: VANCOMYCIN INJECTION 1,000 MG in NS (IVPB) 250 ML IV SCH (09:00)
--- NOTE | 2018-08-07 09:31 | Progress Note-Post Operative ---
Post-Operative Progess Note Surgeon (s)/Energy Management Specialist (s) Surgeon URI VAMRA MD Energy Management Specialist: GRANT Quintanilla Pre-Operative Diagnosis Left hip infection Post-Operative Diagnosis Same, cultures pending Procedure & Operative Findings Date of Procedure 08/07/18 Procedure Performed/Findings Irrigation/Debridement left hip Anesthesia Type GETA Estimated Blood Loss Estimated blood loss (mL): minimal Specimens/Packing Specimens Removed cultures URI VARMA MD Aug 07, 2018 09:30
[2018-08-07] MEDS ORDERED: VANCOMYCIN INJECTION 0.1 MG in NS (IVPB) 250 ML IV SCH (09:45)
[2018-08-07] MEDS ORDERED: HYDROmorphone 2 MG/ML VIAL (DILAUDID) IV ONE (09:45)
[2018-08-07] MEDS ORDERED: ONDANSETRON 4 MG/2 ML (SDV) Z0FRAN IVP PRN (09:45)
--- NOTE | 2018-08-07 10:02 | NUR ---
CR 0.57; CR CL ~35; WT 48.5 KG; VANCO 1 GM GIVEN IN OR; CONTINUE VANCO 1000 MG IV Q24H; TROUGH AFTER 2ND DOSE
--- NOTE | 2018-08-07 11:03 | Progress Note-Hospitalist ---
Subjective HPI/CC On Admission Date Seen by Provider: Aug 07, 2018 Time Seen by Provider: 10:58 Pt is a 77yoCF known to me from recent admission who presented to the ER due to lethargy. Patient is only able to tell me that she feels sick due to her baseline dementia. She has family at bedside who state that yesterday she started to complain of feeling sick and they thought she was more lethargic. They decided to bring her in for evaluation today where she was found to have a UTI and meet sepsis criteria and thus is being admitted. History is otherwise limited due to dementia. Her family did state she has been back home with them from the [place] [facility] and saw Dr Velásquez on 08/02 for follow up of her hip fracture. Subjective/Events-last exam Saw immediately postop in ICU. Patient sleeping still from surgery. On oxi-mask. Focused Exam Lactate Level 08/05/18 13:20: Lactic Acid Level 0.80 Objective Exam Vital Signs Vital Signs Date Time Temp Pulse Resp B/P (MAP) Pulse Ox O2 Delivery O2 Flow Rate FiO2 08/07/18 08:00 97.6 84 16 154/68 (96) 97 Room Air Capillary Refill : Less Than 3 SecondsLess Than 3 Seconds General Appearance: No Apparent Distress, Chronically ill, Thin Respiratory: No Accessory Muscle Use, No Respiratory Distress, Other (oxi-mask in place) Neurologic/Psychiatric: Other (sleeping) Results/Procedures Lab Laboratory Tests 08/07/18 00:35 08/07/18 03:45 Patient resulted labs reviewed. Imaging: Reviewed Imaging Report Assessment/Plan Assessment and Plan Assess & Plan/Chief Complaint Sepsis Diagnosis/Problems Diagnosis/Problems (1) Sepsis Status: Acute Assessment & Plan: Leukocytosis improving UTI apparent also abscess on hip Continue Rocephin\ Blood cultures NGTD Await cultures from urine as below and OR cultures today Qualifiers: Sepsis type: sepsis due to unspecified organism Qualified Codes: A41.9 - Sepsis, unspecified organism (2) UTI (urinary tract infection) Status: Acute Assessment & Plan: Rocephin as above Reviewed previous cultures that grew strep so should be sensitive Urine cultures shows no growth but that is not consistent with UA Discussed with Micro who will verify with [facility] in [place] Qualifiers: Urinary tract infection type: acute cystitis Hematuria presence: without hematuria Qualified Codes: N30.00 - Acute cystitis without hematuria (3) Postoperative wound infection of left hip Assessment & Plan: Ortho consulted, trell recs Underwent irrigation and debridement in the OR with Dr Velásquez today Await cultures (4) Dementia Assessment & Plan: At baseline Reorient as needed Qualifiers: Dementia type: unspecified type Dementia behavioral disturbance: without behavioral disturbance Qualified Codes: F03.90 - Unspecified dementia without behavioral disturbance (5) CAD (coronary artery disease) Status: Chronic Assessment & Plan: Resume home meds Qualifiers: Coronary Disease-Associated Artery/Lesion type: [place] artery [place] vs. transplanted heart: [place] heart Associated angina: without angina Qualified Codes: I25.10 - Atherosclerotic heart disease of [place] coronary artery without angina pectoris (6) Peripheral arterial disease Assessment & Plan: Healing wound on foot from this Continue wound care (7) Insulin dependent diabetes mellitus Assessment & Plan: Was mildly hypoglycemic last night so levemir held Fasting blodo sugar was 82 this AM Will DC levemir and monitor to avoid hypoglycemia Continue SSI (8) Microcytic anemia Status: Chronic Assessment & Plan: Giving CAD and PAD goal Hgb 8 Hgb 10 today Consider Infed before discharge Will hold lovenox for anemia and bleeding form hip Clinical Quality Measures DVT/VTE Risk/Contraindication: Risk Factor Score Per Nursin RFS Level Per Nursing on Admit: 4+=Very High BRENDA HERNANDEZ MD Aug 07, 2018 11:03
--- NOTE | 2018-08-07 12:04 | OPERATIVE REPORT ---
DATE OF SERVICE: PREOPERATIVE DIAGNOSIS: Suspected left hip infection. POSTOPERATIVE DIAGNOSIS: Suspected left hip infection. Cultures pending. PROCEDURE PERFORMED: Irrigation, debridement skin, subcutaneous tissue, muscle and bone, left hip. SURGEON: Uri Varma MD SALES OPERATIONS CONSULTANT: RICARDO Quintanlila. ROLE OF FORENSIC PHOTOGRAPHER: Aid in retraction of the procedure and wound closure. ANESTHESIA: General endotracheal. ESTIMATED BLOOD LOSS: Minimal. INTRAVENOUS FLUIDS: Please see anesthesia record. ANTIBIOTICS: Vancomycin given after cultures were obtained. COMPLICATIONS: None. SPECIMENS: Cultures. INDICATIONS FOR PROCEDURE: The patient is a 77-year-old female about 5 weeks out from a left hip hemiarthroplasty, developed some drainage after UTI and suspected hip infection, taken to the operating room for exploration and debridement. DESCRIPTION OF PROCEDURE: The patient was taken to the preoperative holding area and brought back to the operative suite. After adequate induction of general anesthesia, preoperative antibiotics, turned carefully turned in the lateral decubitus position on a pegboard. Left hip was prepped and draped. It was opened. There was some serosanguineous and hematoma fluid present. The IT band repair was disrupted and she had also fractured off her greater trochanter. Gallo and curette was utilized to scrape and debride the subcutaneous tissue as well as around the capsule and bony trochanter and the base of the stem was debrided as well. The cup was inspected and then pulse lavage irrigation enhanced with gentamicin was used to irrigate the wound greater than 3 liters out and then once the wound was cleansed, a #1 PDS was utilized. Trochanter was tightly repaired back with #1 PDS and then IT band was repaired as well. The wound was packed open. The patient was transferred to the recovery room in stable condition having tolerated the procedure well. Job ID: [id number] DocumentID: [id number] Dictated Date: 08/07/2018 09:30:51 Research Development Manager Date: 08/07/2018 12:03:56 Dictated By: URI VARMA MD [facility]
[2018-08-07] MEDS: ATORVASTATIN 80 MG (LIPITOR) TABLET PO SCH (12:39)
[2018-08-07] MEDS: LACTOBACILLUS ACIDOPHILUS (PROBIOTIC) CAPSULE PO SCH (12:39)
[2018-08-07] MEDS: LORazepam 0.5 MG (ATIVAN) TABLET PO SCH ×2 (12:40→21:23)
[2018-08-07] MEDS: PANTOPRAZOLE 40 MG (PROTONIX) TAB PO SCH (12:40)
[2018-08-07] MEDS: CYPROHEPTADINE (PERIACTIN) 4 MG TAB PO SCH ×2 (12:40→21:24)
[2018-08-07] MEDS: cefTRIAXone 1,000 MG/SWFI 10 ML IV PUSH IV SCH ×2 (14:04)
[2018-08-07] MEDS: MELATONIN 3 MG TABLET PO SCH (21:23)
[2018-08-07] MEDS: DONEPEZIL 10 MG (ARICEPT) TAB PO SCH (21:23)
[2018-08-08 04:00] VITALS: BP 156/53
[2018-08-08] MEDS: NS IV 1000 ML 1,000 ML IV SCH ×2 (04:04→17:14)
[2018-08-08] MEDS: VENLAFAXINE 50 MG (EFFEXOR) TABLET PO SCH (05:30)
[2018-08-08 05:55] LABS: BASOPHILS # (AUTO) 0.1 10^3/uL (0.0-0.1); BASOPHILS % (AUTO) 0 % (0-10); EOSINOPHILS # (AUTO) 0.2 10^3/uL (0.0-0.3); EOSINOPHILS % (AUTO) 1 % (0-10); HEMATOCRIT 30 % (35-52); LYMPHOCYTES # (AUTO) 1.9 X 10^3 (1.0-4.0); LYMPHOCYTES % (AUTO) 11 % (12-44); MEAN CORPUSCULAR HEMOGLOBIN 21 PG (25-34); MEAN CORPUSCULAR HGB CONC 30 G/DL (32-36); MEAN CORPUSCULAR VOLUME 69 FL (80-99); MEAN PLATELET VOLUME 9.4 FL (7.4-10.4); MONOCYTES # (AUTO) 2.2 X 10^3 (0.0-1.0); MONOCYTES % (AUTO) 13 % (0-12); NEUTROPHILS # (AUTO) 12.9 X 10^3 (1.8-7.8); NEUTROPHILS % (AUTO) 75 % (42-75); PLATELET COUNT 597 10^3/uL (130-400); RED CELL DISTRIBUTION WIDTH 27.7 % (10.0-14.5); WHITE BLOOD COUNT 17.3 10^3/uL (4.3-11.0)
[2018-08-08] MEDS: inSUlin ASPART (NovoLOG) 1 UNIT/0.01 ML (CHARGE PER UNIT) SC SCH ×4 (06:01→21:13)
[2018-08-08 06:20] LABS: ALANINE AMINOTRANSFERASE 12 U/L (0-55); ALBUMIN 2.3 GM/DL (3.2-4.5); ALKALINE PHOSPHATASE 78 U/L (40-136); BILIRUBIN,TOTAL 0.4 MG/DL (0.1-1.0); BUN/CREATININE RATIO 8; CALCIUM 7.8 MG/DL (8.5-10.1); CARBON DIOXIDE 14 MMOL/L (21-32); CHLORIDE 114 MMOL/L (98-107); GFR ESTIMATED > 60; GLUCOSE 139 MG/DL (70-105); POTASSIUM 4.3 MMOL/L (3.6-5.0); SODIUM 139 MMOL/L (135-145); TOTAL PROTEIN 5.2 GM/DL (6.4-8.2)
[2018-08-08 08:00] VITALS: BP 109/53
[2018-08-08] MEDS ORDERED: VANCOMYCIN 1 GM/NS 250 ML IVPB IV SCH ×2 (08:00)
[2018-08-08] MEDS: LACTOBACILLUS ACIDOPHILUS (PROBIOTIC) CAPSULE PO SCH (08:19)
[2018-08-08] MEDS: LORazepam 0.5 MG (ATIVAN) TABLET PO SCH ×2 (08:19→21:13)
[2018-08-08] MEDS: PANTOPRAZOLE 40 MG (PROTONIX) TAB PO SCH (08:19)
[2018-08-08] MEDS: CYPROHEPTADINE (PERIACTIN) 4 MG TAB PO SCH ×2 (08:19→21:13)
[2018-08-08] MEDS: ATORVASTATIN 80 MG (LIPITOR) TABLET PO SCH (08:20)
--- NOTE | 2018-08-08 11:02 | Progress Note (SOAP) ---
Subjective Date Seen by a Provider: Aug 08, 2018 Time Seen by a Provider: 11:00 Subjective/Events-last exam Up to chair, no complaints, pain controlled Focused Exam Lactate Level 08/05/18 13:20: Lactic Acid Level 0.80 Objective Exam Vital Signs Date Time Temp Pulse Resp B/P (MAP) Pulse Ox O2 Delivery O2 Flow Rate FiO2 08/08/18 08:10 Room Air 08/08/18 08:00 98.6 98 20 109/53 (71) 93 Room Air 08/08/18 07:13 94 08/08/18 04:00 97.7 99 12 156/53 (87) 94 Room Air 08/08/18 01:00 86 08/07/18 23:50 98.0 88 14 122/62 (82) 96 Room Air 08/07/18 19:50 Room Air 08/07/18 19:11 96.8 91 16 116/61 (79) 97 08/07/18 19:00 90 08/07/18 15:36 96.3 54 14 117/61 (79) 96 08/07/18 13:09 92 08/07/18 12:00 96.3 84 16 156/68 (97) 100 Room Air I & O 08/08/18 07:00 Intake Total 3860 ml Output Total 675 ml Balance 3185 ml Capillary Refill : Less Than 3 SecondsLess Than 3 Seconds General Appearance: No Apparent Distress Respiratory: No Accessory Muscle Use, No Respiratory Distress Cardiovascular: Regular Rate, Rhythm Gastrointestinal: soft Extremity: No Calf Tenderness, Other (Dressing left hip) Neurologic/Psychiatric: Alert, Oriented x3, No Motor/Sensory Deficits Results Lab Laboratory Tests 08/07/18 15:33: Glucometer 206H 08/07/18 20:03: Glucometer 182H 08/08/18 05:30: White Blood Count 17.3H, Red Blood Count 4.39, Hemoglobin 9.0L, Hematocrit 30L, Mean Corpuscular Volume 69L, Mean Corpuscular Hemoglobin 21L, Mean Corpuscular Hemoglobin Concent 30L, Red Cell Distribution Width 27.7H, Platelet Count 597H, Mean Platelet Volume 9.4, Neutrophils (%) (Auto) 75, Lymphocytes (%) (Auto) 11L , Monocytes (%) (Auto) 13H, Eosinophils (%) (Auto) 1, Basophils (%) (Auto) 0, Neutrophils # (Auto) 12.9H, Lymphocytes # (Auto) 1.9, Monocytes # (Auto) 2.2H, Eosinophils # (Auto) 0.2, Basophils # (Auto) 0.1, Sodium Level 139, Potassium Level 4.3, Chloride Level 114H, Carbon Dioxide Level 14L, Anion Gap 11, Blood Urea Nitrogen 5L, Creatinine 0.60, Estimat Glomerular Filtration Rate > 60, BUN/ Creatinine Ratio 8, Glucose Level 139H, Calcium Level 7.8L, Corrected Calcium 9.2, Total Bilirubin 0.4, Aspartate Amino Transf (AST/SGOT) 35H, Alanine Aminotransferase (ALT/SGPT) 12, Alkaline Phosphatase 78, Total Protein 5.2L, Albumin 2.3L 08/08/18 05:46: Glucometer 152H 08/08/18 09:05: Erythrocyte Sedimentation Rate 19, C-Reactive Protein High Sensitivity 6.16H Microbiology 08/05/18 Blood Culture - Preliminary, Resulted No growth 08/06/18 C. difficile GDH Antigen & Toxins - Final, Complete 08/06/18 MRSA Screen - Final, Complete MRSA not isolated 08/05/18 Urine Culture - Final, Complete NO GROWTH Assessment/Plan Assessment/Plan Assess & Plan/Chief Complaint Suspected Left Bipolar hip infection Left Greater trochanter fracture Plan; WBAT 6 weeks of IV ABx Discussed with Dr Marshall regarding wound care issues. Clinical Quality Measures DVT/VTE Risk/Contraindication: Risk Factor Score Per Nursin RFS Level Per Nursing on Admit: 4+=Very High URI VARMA MD Aug 08, 2018 11:02
--- NOTE | 2018-08-08 11:04 | Physical Therapy Daily Note ---
PT Daily Note-Current Subjective Patient is more alert and family agrees to PT. Pain Numeric Pain Scale: 5-Moderate Pain Location: Left Location Body Site: Hip Pain Description: Acute Mental Status Patient Orientation: Confused Attachments: IV Transfers Therapy Code Descriptions/Definitions Functional [place] Measure: 0=Not Assessed/NA 4=Minimal Assistance 1=Total Assistance 5=Supervision or Setup 2=Maximal Assistance 6=Modified [place] 3=Moderate Assistance 7=Complete [place] Therapy Quality Codes: 6 Independent with activity with or without an assistive device 5 Patient requires set up or clean up by helper. Patient completes activity by themselves 4 Supervision or touching assist (CGA). [place] provide cues , steadying assist 3 The helper provides less than half the effort to complete the activity 2 The helper provides more than half the effort to complete the activity 1 Dependent. The helper does all the effort to complete an activity 7 Patient refused to complete or attempt activity 9 The patient did not perform the activity before the current illness or injury 88 Not attempted due to Medical conditions or safety concerns Transfers (B, C, W/C) (FIM): 3 Scootin Rollin Supine to/from Sit: 3 Sit to/from Stand: 3 Bed to/from Chair: 3 Patient is extremely impulsive with stand to sit and is unaware of safety concerns. Patient performed sit to stand x 3 sets with mod assist to FWW. Weight Bearing Right Lower Extremity: Right Weight Bearing/Tolerated Left Lower Extremity: Left Weight Bearing/Tolerated Exercises Seated Therapy Exercises: Ankle pumps, Long arc quads, Hip flexion Seated Reps: 15 (bilaterally) Assessment Patient declined gait training by impulsively sitting from stand position. Patient is WBAT left LE per Dr. Velásquez verbal to Dr. Vaughan. PT to increase activity as tolerated by patient. PT Collator Goals Shelter Goals PT Shelter Goals Time Frame: Aug 20, 2018 Transfers (B,C,W/C) (FIM): 3 Gait (FIM): 1 Gait distance (FIM): 1=up to 49 ft Distance: 45' Gait Level of Assist: 3 Gait Assistive Device: FWW PT Plan Treatment/Plan Treatment Plan: Continue Plan of Care Treatment Plan: Bed Mobility, Education, Functional Activity Corrine, Functional Strength, Gait, Safety, Therapeutic Exercise, Transfers Treatment Duration: Aug 20, 2018 Frequency: 6 times per week Estimated Hrs Per Day: .25 hour per day Patient and/or Family Agrees t: Yes Time/GCodes Time In: 1037 Time Out: 1055 Total Billed Treatment Time: 18 Total Billed Treatment 1 visit FA 18 min VIVIANE MATT PT Aug 08, 2018 11:04
[2018-08-08 12:00] VITALS: BP 118/59
--- NOTE | 2018-08-08 13:33 | Progress Note-Hospitalist ---
Progress Note Progress Notes/Assess & Plan Date Seen 08/08/18 Time Seen by Provider: 13:27 Assessment & Plan The patient presented to the emergency room having been brought by family. She was thought to be more confused than usual and was found to have a urinary tract infection. She had a hip surgery performed by Dr. Velásquez a month or more ago. It was then determined that there was a problem there. The daughter reported that she had been in the prison after the hip surgery and had done very poorly. She had eaten very poorly and had lost weight. She had had a fall precipitated by her inpatients and desire to get to the bathroom. The family then took her from the prison one week ago and felt that she was performing better until very recently. She was found to have a urinary tract infection in the emergency room and then later it was determined that there was a problem with the hip. Dr. Moreno took her to the OR on Wednesday and explored this. He found some accumulation of free blood. The wound was irrigated aggressively with 3 L of sterile saline and gentamicin in the irrigant. She is now receiving IV antibiotics. No new cultures are available for me. It is planned that she will require 6 weeks of IV antibiotics. She is sitting in a chair at the bedside. Lungs are clear to auscultation. CV is irregular. She repeats words and phrases and is very eager to return to bed. Impression: Urinary tract infection. 2.dementia. 3.fluid and blood accumulation about the left 4.diabetes mellitus insulin-requiring hip with likely bacterial infection. LETI BARNES MD Aug 08, 2018 13:33
[2018-08-08] MEDS: cefTRIAXone 1,000 MG/SWFI 10 ML IV PUSH IV SCH ×2 (13:52)
--- NOTE | 2018-08-08 14:20 | NUR ---
Pastoral care visit.
[2018-08-08 16:45] VITALS: BP 137/61
[2018-08-08] MEDS ORDERED: DAKIN'S 1/4 STRENGTH (0.125%) 473 ML BTL TOP SCH (19:30)
--- NOTE | 2018-08-08 19:30 | Wound Care Assessment ---
Wound Care Assessment Date Seen by Provider: Aug 08, 2018 Time Seen by Provider: 19:15 Chief Complaint L hip wound. HPI The patient is a pleasant 77 year old female with open wound of L hip area, s/p incision and drainage of abscess. There is an underlying prosthesis, cultures have been obtained, and empiric IV antibiotics begun. The wound is clean, but has a significant amount of slough present, precluding immediate NPWT. Will begin Dakin's dressings and follow. Recreational Drug Use: No Alcohol Use: Denies Use Exam Vital Signs Date Time Temp Pulse Resp B/P (MAP) Pulse Ox O2 Delivery O2 Flow Rate FiO2 08/08/18 16:45 98.2 98 19 137/61 (86) 98 Room Air Capillary Refill : Less Than 3 SecondsLess Than 3 Seconds Cardiovascular: other (Bilateral carotid bruit, with history of stents, followed by Dr. Saha.) Extremities: other (L hip -- 17.5 x 5.3 x 5.4 cm, base 75% slough, 25% granulation tissue, large amount thin s.s. drainage.) Results Laboratory Tests 08/07/18 20:03: Glucometer 182H 08/08/18 05:30: White Blood Count 17.3H, Red Blood Count 4.39, Hemoglobin 9.0L, Hematocrit 30L, Mean Corpuscular Volume 69L, Mean Corpuscular Hemoglobin 21L, Mean Corpuscular Hemoglobin Concent 30L, Red Cell Distribution Width 27.7H, Platelet Count 597H, Mean Platelet Volume 9.4, Neutrophils (%) (Auto) 75, Lymphocytes (%) (Auto) 11L , Monocytes (%) (Auto) 13H, Eosinophils (%) (Auto) 1, Basophils (%) (Auto) 0, Neutrophils # (Auto) 12.9H, Lymphocytes # (Auto) 1.9, Monocytes # (Auto) 2.2H, Eosinophils # (Auto) 0.2, Basophils # (Auto) 0.1, Sodium Level 139, Potassium Level 4.3, Chloride Level 114H, Carbon Dioxide Level 14L, Anion Gap 11, Blood Urea Nitrogen 5L, Creatinine 0.60, Estimat Glomerular Filtration Rate > 60, BUN/ Creatinine Ratio 8, Glucose Level 139H, Calcium Level 7.8L, Corrected Calcium 9.2, Total Bilirubin 0.4, Aspartate Amino Transf (AST/SGOT) 35H, Alanine Aminotransferase (ALT/SGPT) 12, Alkaline Phosphatase 78, Total Protein 5.2L, Albumin 2.3L 08/08/18 05:46: Glucometer 152H 08/08/18 09:05: Erythrocyte Sedimentation Rate 19, C-Reactive Protein High Sensitivity 6.16H 08/08/18 11:07: Glucometer 292H 08/08/18 12:21: Lab Scanned Report Transfusion Reaction Form 08/08/18 17:09: Glucometer 266H Microbiology 08/05/18 Blood Culture - Preliminary, Resulted No growth 08/06/18 C. difficile GDH Antigen & Toxins - Final, Complete 08/06/18 MRSA Screen - Final, Complete MRSA not isolated 08/05/18 Urine Culture - Final, Complete NO GROWTH 08/07/18 Gram Stain, Resulted Pending 08/07/18 Anaerobic Culture, Resulted Pending 08/07/18 Surgical Culture - Preliminary, Resulted Corynebacterium striatum See Comments Microbiology 08/07/18 Gram Stain, Resulted Pending 08/07/18 Anaerobic Culture, Resulted Pending 08/07/18 Surgical Culture - Preliminary, Resulted Corynebacterium striatum See Comments 08/07/18 Gram Stain, Resulted Pending 08/07/18 Anaerobic Culture, Resulted Pending 08/07/18 Surgical Culture - Preliminary, Resulted Corynebacterium striatum VIKASH REID MD Aug 08, 2018 19:30
[2018-08-08] MEDS: DONEPEZIL 10 MG (ARICEPT) TAB PO SCH (21:13)
[2018-08-08] MEDS: MELATONIN 3 MG TABLET PO SCH (21:13)
[2018-08-09] VITALS: BP_SYST 129; BP_SYST 90; BP_DIAS 46; BP_DIAS 70
[2018-08-09] MEDS: inSUlin ASPART (NovoLOG) 1 UNIT/0.01 ML (CHARGE PER UNIT) SC SCH ×4 (06:23→21:20)
--- NOTE | 2018-08-09 06:40 | Progress Note (SOAP) ---
Subjective Time Seen by a Provider: 06:37 Subjective/Events-last exam Pt resting comfortably this morning. C/O of some pain in hip. Objective Exam Vital Signs Date Time Temp Pulse Resp B/P (MAP) Pulse Ox O2 Delivery O2 Flow Rate FiO2 08/09/18 00:00 97.6 90 16 129/70 (89) 96 Room Air 08/08/18 20:00 Room Air 08/08/18 16:45 98.2 98 19 137/61 (86) 98 Room Air 08/08/18 12:53 94 08/08/18 12:00 98.2 95 18 118/59 (78) 92 Room Air 08/08/18 08:10 Room Air 08/08/18 08:00 98.6 98 20 109/53 (71) 93 Room Air 08/08/18 07:13 94 I & O 08/09/18 07:00 Intake Total 2160 ml Output Total 600 ml Balance 1560 ml Capillary Refill : Less Than 3 SecondsLess Than 3 Seconds General Appearance: No Apparent Distress Neurologic/Psychiatric: No Motor/Sensory Deficits Skin: Other (Dressing C/D/I) Results Lab Laboratory Tests 08/08/18 09:05: Erythrocyte Sedimentation Rate 19, C-Reactive Protein High Sensitivity 6.16H 08/08/18 11:07: Glucometer 292H 08/08/18 12:21: Lab Scanned Report Transfusion Reaction Form 08/08/18 17:09: Glucometer 266H 08/08/18 20:35: Glucometer 261H 08/09/18 06:10: Glucometer 165H Microbiology 08/05/18 Blood Culture - Preliminary, Resulted No growth 08/06/18 C. difficile GDH Antigen & Toxins - Final, Complete 08/06/18 MRSA Screen - Final, Complete MRSA not isolated 08/05/18 Urine Culture - Final, Complete NO GROWTH 08/07/18 Gram Stain, Resulted Pending 08/07/18 Anaerobic Culture, Resulted Pending 08/07/18 Surgical Culture - Preliminary, Resulted Corynebacterium striatum See Comments Assessment/Plan Assessment/Plan Assess & Plan/Chief Complaint S/P I&D wound left hip Cont with dressing changes per Dr. Marshall Up with PT as tolerated Clinical Quality Measures DVT/VTE Risk/Contraindication: Risk Factor Score Per Nursin RFS Level Per Nursing on Admit: 4+=Very High VOGTTAYA L PA Aug 09, 2018 06:40
[2018-08-09] MEDS: VENLAFAXINE 50 MG (EFFEXOR) TABLET PO SCH (06:58)
[2018-08-09] MEDS: NS IV 1000 ML 1,000 ML IV SCH ×3 (06:58→21:20)
[2018-08-09] MEDS ORDERED: TROUGH ORDER-PHARMACY XX NR (07:00)
[2018-08-09 07:37] LABS: BASOPHILS # (AUTO) 0.1 10^3/uL (0.0-0.1); BASOPHILS % (AUTO) 1 % (0-10); EOSINOPHILS # (AUTO) 0.3 10^3/uL (0.0-0.3); EOSINOPHILS % (AUTO) 3 % (0-10); HEMATOCRIT 35 % (35-52); HEMOGLOBIN 10.1 G/DL (11.5-16.0); LYMPHOCYTES # (AUTO) 1.9 X 10^3 (1.0-4.0); LYMPHOCYTES % (AUTO) 14 % (12-44); MEAN CORPUSCULAR HEMOGLOBIN 20 PG (25-34); MEAN CORPUSCULAR HGB CONC 29 G/DL (32-36); MEAN CORPUSCULAR VOLUME 70 FL (80-99); MEAN PLATELET VOLUME 9.2 FL (7.4-10.4); MONOCYTES # (AUTO) 1.5 X 10^3 (0.0-1.0); MONOCYTES % (AUTO) 11 % (0-12); NEUTROPHILS # (AUTO) 9.6 X 10^3 (1.8-7.8); NEUTROPHILS % (AUTO) 72 % (42-75); PLATELET COUNT 610 10^3/uL (130-400); RED CELL DISTRIBUTION WIDTH 28.5 % (10.0-14.5); WHITE BLOOD COUNT 13.4 10^3/uL (4.3-11.0)
[2018-08-09 07:53] LABS: ALANINE AMINOTRANSFERASE 15 U/L (0-55); ALBUMIN 2.7 GM/DL (3.2-4.5); ALKALINE PHOSPHATASE 89 U/L (40-136); BILIRUBIN,TOTAL 0.4 MG/DL (0.1-1.0); BUN/CREATININE RATIO 7; CALCIUM 8.2 MG/DL (8.5-10.1); CARBON DIOXIDE 17 MMOL/L (21-32); CHLORIDE 112 MMOL/L (98-107); CREATININE SERUM 0.54 MG/DL (0.60-1.30); GFR ESTIMATED > 60; GLUCOSE 176 MG/DL (70-105); POTASSIUM 4.2 MMOL/L (3.6-5.0); SODIUM 139 MMOL/L (135-145); TOTAL PROTEIN 5.8 GM/DL (6.4-8.2)
[2018-08-09 08:00] VITALS: BP 159/70
--- NOTE | 2018-08-09 08:05 | NUR ---
PTD VANCOMYCIN LABS: SCR 0.54 VANCOMYCIN LEVEL (PRIOR TO 3RD DOSE) 6 PLAN: INCREASE VANCOMYCIN TO 2 GRAMS IV DAILY FOR PLANS FOR INTERVENTION TEACHER (45 DAYS) THERAPY. WILL REPEAT A TROUGH LEVEL END OF WEEK IF PATIENT STILL IN HOUSE. RECOMMEND WEEKLY LEVELS (VANCOMYCIN, CHEM7) TO EVALUATE CLEARANCE AND RENAL FXN.
[2018-08-09] MEDS: CYPROHEPTADINE (PERIACTIN) 4 MG TAB PO SCH ×2 (08:34→21:18)
[2018-08-09] MEDS: ATORVASTATIN 80 MG (LIPITOR) TABLET PO SCH (08:34)
[2018-08-09] MEDS: PANTOPRAZOLE 40 MG (PROTONIX) TAB PO SCH (08:34)
[2018-08-09] MEDS: LORazepam 0.5 MG (ATIVAN) TABLET PO SCH ×2 (08:34→21:18)
[2018-08-09] MEDS: LACTOBACILLUS ACIDOPHILUS (PROBIOTIC) CAPSULE PO SCH (08:34)
[2018-08-09] MEDS: VANCOMYCIN 2000 MG/NS 500 ML IVPB IV SCH ×2 (09:36)
--- NOTE | 2018-08-09 09:47 | Physical Therapy Daily Note ---
PT Daily Note-Current Subjective Patient agrees to PT. Pain Numeric Pain Scale: 8 Location: Left Location Body Site: Hip Pain Description: Chronic Mental Status Patient Orientation: Confused Attachments: IV Transfers Therapy Code Descriptions/Definitions Functional [place] Measure: 0=Not Assessed/NA 4=Minimal Assistance 1=Total Assistance 5=Supervision or Setup 2=Maximal Assistance 6=Modified [place] 3=Moderate Assistance 7=Complete [place] Therapy Quality Codes: 6 Independent with activity with or without an assistive device 5 Patient requires set up or clean up by helper. Patient completes activity by themselves 4 Supervision or touching assist (CGA). [place] provide cues , steadying assist 3 The helper provides less than half the effort to complete the activity 2 The helper provides more than half the effort to complete the activity 1 Dependent. The helper does all the effort to complete an activity 7 Patient refused to complete or attempt activity 9 The patient did not perform the activity before the current illness or injury 88 Not attempted due to Medical conditions or safety concerns Transfers (B, C, W/C) (FIM): 3 Scootin Supine to/from Sit: 3 Sit to/from Stand: 3 Bed to/from Chair: 3 Patient is impulsive to sit from standing position requiring assist to safely attain sitting position in chair. Weight Bearing Right Lower Extremity: Right Weight Bearing/Tolerated Left Lower Extremity: Left Weight Bearing/Tolerated Gait Training Gait (FIM): 1 Distance (FIM): 1=up to 49 ft Distance: 5' Gait Level of Assist: 3 Gait Assistive Device: FWW kyphotic/patient is able to take steps, however, is impulsive to sit from standing position Exercises Seated Therapy Exercises: Ankle pumps, Long arc quads, Hip flexion Seated Reps: 15 Assessment Patient tolerated treatment well and is up in recliner with needs met. Patient is very self limiting. PT Group Home Goals Group Home Goals PT Acute Dialysis Registered Nurse Goals Time Frame: Aug 20, 2018 Transfers (B,C,W/C) (FIM): 3 Gait (FIM): 1 Gait distance (FIM): 1=up to 49 ft Distance: 45' Gait Level of Assist: 3 Gait Assistive Device: FWW PT Plan Treatment/Plan Treatment Plan: Continue Plan of Care Treatment Plan: Bed Mobility, Education, Functional Activity Corrine, Functional Strength, Gait, Safety, Therapeutic Exercise, Transfers Treatment Duration: Aug 20, 2018 Frequency: 6 times per week Estimated Hrs Per Day: .25 hour per day Patient and/or Family Agrees t: Yes Time/GCodes Time In: 850 Time Out: 904 Total Billed Treatment Time: 14 Total Billed Treatment 1 visit FA 14 min VIVIANE MATT PT Aug 09, 2018 09:47
--- NOTE | 2018-08-09 10:52 | Progress Note-Hospitalist ---
Progress Note Progress Notes/Assess & Plan Date Seen 08/09/18 Time Seen by Provider: 10:47 Assessment & Plan The patient is sitting in her chair at bedside. She is not altogether happy about this but is less grumpy than yesterday. The wound culture is growing a corynebacterium species which is sensitive to a variety of medications. It would appear that vancomycin would be our best choice. The daughter is dedicated to the proposition of taking her home from the hospital to complete daily IV antibiotics for the upcoming 6 weeks. They are eligible for home health care services as well. And she states that the doctor Riky has already made arrangements for this to happen at discharge. She will require a PICC line. Physical exam: She is a bit confused but remembers me from yesterday. Lungs are clear to auscultation. CV is regular Impression: Left hip ashley-arthroplasty approximately 4-6 weeks ago with apparent corynebacterium species infection. 2.mild to moderate dementia. 3.coronary artery disease Plan: Placement of PICC line in preparation for discharge. LETI BARNES MD Aug 09, 2018 10:52
--- NOTE | 2018-08-09 14:06 | Diagnostic Imaging Report ---
INDICATION: Line placement. TECHNIQUE: Single view chest 1:49 PM. CORRELATION STUDY: 08/05/2018 FINDINGS: A left-sided central line has been placed tip projected over the expected location of the SVC. The previously left sided line via the neck has been removed. Vascular stent over the base of neck on the right. The lung leung are hyperinflated with changes of COPD. No infiltrate. Heart size and vascularity are within normal limits with tortuous course of he thoracic aorta. Old healed right clavicle fracture. IMPRESSION: 1. Left upper extremity central line has been placed tip projecting over the expected location of the SVC. Dictated by: Dictated on workstation # [id number]
[2018-08-09 16:00] VITALS: BP 126/63
[2018-08-09] MEDS: DONEPEZIL 10 MG (ARICEPT) TAB PO SCH (21:18)
[2018-08-09] MEDS: MELATONIN 3 MG TABLET PO SCH (21:18)
[2018-08-10] VITALS: BP 155/70
[2018-08-10 04:50] LABS: BASOPHILS % (AUTO) 0 % (0-10); EOSINOPHILS # (AUTO) 0.3 10^3/uL (0.0-0.3); EOSINOPHILS % (AUTO) 2 % (0-10); HEMATOCRIT 28 % (35-52); HEMOGLOBIN 8.3 G/DL (11.5-16.0); LYMPHOCYTES % (AUTO) 12 % (12-44); MEAN CORPUSCULAR HEMOGLOBIN 20 PG (25-34); MEAN CORPUSCULAR HGB CONC 30 G/DL (32-36); MEAN CORPUSCULAR VOLUME 69 FL (80-99); MEAN PLATELET VOLUME 8.7 FL (7.4-10.4); MONOCYTES # (AUTO) 1.9 X 10^3 (0.0-1.0); MONOCYTES % (AUTO) 11 % (0-12); NEUTROPHILS # (AUTO) 12.5 X 10^3 (1.8-7.8); NEUTROPHILS % (AUTO) 75 % (42-75); PLATELET COUNT 583 10^3/uL (130-400); RED CELL DISTRIBUTION WIDTH 28.7 % (10.0-14.5); WHITE BLOOD COUNT 16.7 10^3/uL (4.3-11.0)
[2018-08-10 05:07] LABS: ALANINE AMINOTRANSFERASE 14 U/L (0-55); ALBUMIN 2.3 GM/DL (3.2-4.5); ALKALINE PHOSPHATASE 84 U/L (40-136); BILIRUBIN,TOTAL 0.5 MG/DL (0.1-1.0); BUN/CREATININE RATIO 6; CALCIUM 7.8 MG/DL (8.5-10.1); CARBON DIOXIDE 22 MMOL/L (21-32); CHLORIDE 108 MMOL/L (98-107); CREATININE SERUM 0.49 MG/DL (0.60-1.30); GFR ESTIMATED > 60; GLUCOSE 175 MG/DL (70-105); POTASSIUM 3.5 MMOL/L (3.6-5.0); SODIUM 138 MMOL/L (135-145)
[2018-08-10] MEDS: inSUlin ASPART (NovoLOG) 1 UNIT/0.01 ML (CHARGE PER UNIT) SC SCH ×2 (06:41→11:38)
[2018-08-10] MEDS: VENLAFAXINE 50 MG (EFFEXOR) TABLET PO SCH (06:41)
[2018-08-10 08:00] VITALS: BP 129/76
[2018-08-10] MEDS: ATORVASTATIN 80 MG (LIPITOR) TABLET PO SCH (08:00)
[2018-08-10] MEDS: LACTOBACILLUS ACIDOPHILUS (PROBIOTIC) CAPSULE PO SCH (08:00)
[2018-08-10] MEDS: LORazepam 0.5 MG (ATIVAN) TABLET PO SCH (08:00)
[2018-08-10] MEDS: VANCOMYCIN 2000 MG/NS 500 ML IVPB IV SCH ×2 (08:00)
[2018-08-10] MEDS: PANTOPRAZOLE 40 MG (PROTONIX) TAB PO SCH (08:00)
[2018-08-10] MEDS: CYPROHEPTADINE (PERIACTIN) 4 MG TAB PO SCH (08:00)
--- NOTE | 2018-08-10 09:33 | Physical Therapy Daily Note ---
PT Daily Note-Current Subjective Pt. in bed with dtr at bedside. Dtr informs that pt. will stay in bed all day if we dont make her get up. Pt. agitated but cooperative with encouragement. States she cannot do it but does with assist Pain Location: No Pain Reported Comment: pt. moans and indicates her left hip is uncomfortable during TRF sup to sit Mental Status Patient Orientation: Person, Eyes Open Attachments: IV Transfers Therapy Code Descriptions/Definitions Functional [place] Measure: 0=Not Assessed/NA 4=Minimal Assistance 1=Total Assistance 5=Supervision or Setup 2=Maximal Assistance 6=Modified Long 3=Moderate Assistance 7=Complete Long Therapy Quality Codes: 6 Independent with activity with or without an assistive device 5 Patient requires set up or clean up by helper. Patient completes activity by themselves 4 Supervision or touching assist (CGA). [place] provide cues , steadying assist 3 The helper provides less than half the effort to complete the activity 2 The helper provides more than half the effort to complete the activity 1 Dependent. The helper does all the effort to complete an activity 7 Patient refused to complete or attempt activity 9 The patient did not perform the activity before the current illness or injury 88 Not attempted due to Medical conditions or safety concerns sup to sit with HOB up required min to mod assist. sit to stand with bed level raised x 5 trials and from BSC with min to mod assist. doubtful pt is giving full effort due to confusion and possibly pain Weight Bearing Right Lower Extremity: Right Weight Bearing/Tolerated Left Lower Extremity: Left Weight Bearing/Tolerated Gait Training Gait (FIM): 1 Distance (FIM): 1=up to 49 ft Gait Assistive Device: FWW 4 ft bed to BSC and so ft BSC to recliner with FWW mod assist for balance and for advancing FWW and for keeping pt. in safe position in FWW, pt heavy wt bearing on FWW, very kyphotic, begins to sit before turning before reaching recliner and requires max assist to make sure pt. is in chair Exercises Supine Ex: Ankle pumps, Quad Set, Heel Slides, Hip abd/add Supine Reps: 12 Seated Therapy Exercises: Ankle pumps, Sit to stand, Long arc quads Seated Reps: 12 Treatments toileted with good output, changed wet bedding and doffed wet brief and donned dry wit partial bathing done. Changed wet gown all max assist Assessment Current Status: Fair Progress uncooperative, confused, frail, kyphotic, dependent PT Churn Driller Helper Goals [facility] Goals PT Churn Driller Helper Goals Time Frame: Aug 20, 2018 Transfers (B,C,W/C) (FIM): 3 Gait (FIM): 1 Gait distance (FIM): 1=up to 49 ft Distance: 45' Gait Level of Assist: 3 Gait Assistive Device: FWW PT Plan Treatment/Plan Treatment Plan: Continue Plan of Care Treatment Plan: Bed Mobility, Education, Functional Activity Corrine, Functional Strength, Gait, Safety, Therapeutic Exercise, Transfers Treatment Duration: Aug 20, 2018 Frequency: 6 times per week Estimated Hrs Per Day: .25 hour per day Patient and/or Family Agrees t: Yes Safety Risks/Education Patient Education: Gait Training, Transfer Techniques, Correct Positioning, Disease Process, Safety Issues Teaching Recipient: Patient, Family Teaching Methods: Demonstration, Discussion Response to Teaching: Unable to Return Demonstration, Unable to Comprehend, Reinforcement Needed Time/GCodes Time In: 850 Time Out: 920 Total Billed Treatment Time: 30 Total Billed Treatment 1,1,GT10m,FA20m G Codes Necessary: MAKI Lobato WELL DRILLER HELPER Aug 10, 2018 09:33
[2018-08-10] MEDS ORDERED: VANC2PLA3 IV (10:50)
[2018-08-10] MEDS ORDERED: SODI473S7 TOP (10:50)
--- NOTE | 2018-08-10 10:56 | D/C HH Face to Face Order ---
D/C Face to Face Orders Instructions for Patient [facility] Patient Instructions/FollowUp: Dr Lan in 1 week Physician to follow Patient: Dr Go Lan Discharge Diet for Home: No Restrictions Patient Problems: Hip fracture s/p hematoma evacuation Dementia Patient Data-Allergies,Ht & Wt Patient Allergies: Coded Allergies: No Known Drug Allergies (Unverified , 01/29/17) Height (Feet): 5 Height (Inches): 4.00 Weight (Pounds): 124 Weight (Ounces): 6.0 Home Health Need/Face to Face Date of Face to Face: Aug 10, 2018 Clinical Findings: Generalized weakness and fatigue, Instability, Unsteady gait I have seen Pt [id number]: Yes Discharged To: Home Diagnosis/Conditions: Hip fracture s/p hematoma evacuation Dementia Patient is Homebound due to: CognItive deficits, Gustavo fall risk due to instabilty, Pain w/ambulation Homebound Status Due to the above stated illness, injury or surgical procedure (medical condition or diagnosis) and associated clinical findings, the patient is homebound because of his/her inability to leave home except with aid of a supportive device and/or person AND leaving the home requires a considerable and taxing effort or is medically contraindicated. Pt req the following assistanc: Aid of another person, Walker Home Health Nursing Orders Home Health Services Order: Nursing Services, Epic Kaleidoscope Analyst-Evaluate & Treat, Physical Therapy-Evaluate & Treat Home Health Infusion Therapy Line Start Date: Aug 09, 2018 Line Start Time: 1340 Line Type: PICC Site Location: Arm-Upper Certify Stmt I certify that this patient is under my care and that I, a nurse practitioner or a physician; a interior design assistant working with me, had a face to face encounter that - meets the physician face to face encounter requirements with this patient as dated. ACRMEN RAMIREZ DO Aug 10, 2018 10:56
--- NOTE | 2018-08-10 10:57 | Discharge Summary-Hospitalist ---
Diagnosis/Chief Complaint Date of Admission Aug 05, 2018 at 13:00 Date of Discharge Discharge Date: Aug 10, 2018 Admission Diagnosis Sepsis Discharge Diagnosis (1) Sepsis Status: Resolved Assessment & Plan: Leukocytosis improving UTI apparent also abscess on hip Continue Rocephin\ Blood cultures NGTD Await cultures from urine as below and OR cultures today (2) UTI (urinary tract infection) Status: Acute Assessment & Plan: Rocephin as above Reviewed previous cultures that grew strep so should be sensitive Urine cultures shows no growth but that is not consistent with UA Discussed with Micro who will verify with [facility] in [place] (3) Postoperative wound infection of left hip Assessment & Plan: Ortho consulted, appreciate recs Underwent irrigation and debridement in the OR with Dr Velásquez today Await cultures (4) Dementia Assessment & Plan: At baseline Reorient as needed (5) CAD (coronary artery disease) Status: Chronic Assessment & Plan: Resume home meds (6) Peripheral arterial disease Assessment & Plan: Healing wound on foot from this Continue wound care (7) Insulin dependent diabetes mellitus Assessment & Plan: Was mildly hypoglycemic last night so levemir held Fasting blodo sugar was 82 this AM Will DC levemir and monitor to avoid hypoglycemia Continue SSI (8) Microcytic anemia Status: Chronic Assessment & Plan: Giving CAD and PAD goal Hgb 8 Hgb 10 today Consider Infed before discharge Will hold lovenox for anemia and bleeding form hip Discharge Summary Discharge Physical Exam Allergies: Coded Allergies: No Known Drug Allergies (Unverified , 01/29/17) Vitals & I&Os Vital Signs Date Time Temp Pulse Resp B/P (MAP) Pulse Ox O2 Delivery O2 Flow Rate FiO2 08/10/18 13:30 08/10/18 08:00 97.5 99 18 98 Room Air General Appearance: No Apparent Distress, WD/WN, Chronically ill, Thin Respiratory: Chest Non Tender, Lungs Clear, Normal Breath Sounds, No Accessory Muscle Use, No Respiratory Distress Cardiovascular: Regular Rate, Rhythm, No Edema, No Gallop, No JVD, No Murmur, Normal Peripheral Pulses Neurologic/Psychiatric: Alert, Disoriented Hospital Course Was the Problem List Reviewed?: Yes Hospital course: Pt had a lengthy hospital course. She was found to have sepsis erythema over the hip fracture site along with UTI so Pt did have an evacuation of the hematoma that culture did grow out corynebacterium and Vancomycin will be maintained for six weeks. Dementia precludes anything but a poor prognosis nursing home. Family wanted to take her home as she had been home prior since she had not a great experience at the halfway. She will have IV antibiotics out of day surge everyday for 42 doses. Home health orders restarted with [facility]. Overall stable although lab abnormalities not critical, they did not return back to normal and will have close follow up with primary care provider. Labs (last 24 hrs) Laboratory Tests 08/09/18 21:04: Glucometer 212H 08/10/18 04:45: White Blood Count 16.7H, Red Blood Count 4.05L, Hemoglobin 8.3L, Hematocrit 28L , Mean Corpuscular Volume 69L, Mean Corpuscular Hemoglobin 20L, Mean Corpuscular Hemoglobin Concent 30L, Red Cell Distribution Width 28.7H, Platelet Count 583H, Mean Platelet Volume 8.7, Neutrophils (%) (Auto) 75, Lymphocytes (% ) (Auto) 12, Monocytes (%) (Auto) 11, Eosinophils (%) (Auto) 2, Basophils (%) ( Auto) 0, Neutrophils # (Auto) 12.5H, Lymphocytes # (Auto) 2.0, Monocytes # (Auto ) 1.9H, Eosinophils # (Auto) 0.3, Basophils # (Auto) 0.0, Sodium Level 138, Potassium Level 3.5L, Chloride Level 108H, Carbon Dioxide Level 22, Anion Gap 8 , Blood Urea Nitrogen 3L, Creatinine 0.49L, Estimat Glomerular Filtration Rate > 60, BUN/Creatinine Ratio 6, Glucose Level 175H, Calcium Level 7.8L, Corrected Calcium 9.2, Total Bilirubin 0.5, Aspartate Amino Transf (AST/SGOT) 22, Alanine Aminotransferase (ALT/SGPT) 14, Alkaline Phosphatase 84, Total Protein 5.0L, Albumin 2.3L 08/10/18 11:29: Glucometer 248H Microbiology 08/05/18 Blood Culture - Final, Complete No growth 08/06/18 C. difficile GDH Antigen & Toxins - Final, Complete 08/06/18 MRSA Screen - Final, Complete MRSA not isolated 08/05/18 Urine Culture - Final, Complete NO GROWTH 08/07/18 Gram Stain - Final, Resulted 08/07/18 Anaerobic Culture - Final, Resulted No anaerobes isolated 08/07/18 Surgical Culture - Preliminary, Resulted Corynebacterium striatum See Comments Patient resulted labs reviewed. Pending Labs Imaging: Reviewed Imaging Report Discussion & Recommendations Discharge Planning: <30 minutes discharge planning Discharge Home Medications: Active Scripts Active Vanco 2 Gram/250 ml-0.9% NaCl (Vancomycin/0.9 % Sod Chloride) 2 Gm/250 Ml Plast..bag 2 Gm IV DAILY 42 Days Dakin's (Sodium Hypochlorite) 473 Ml Solution 0 Ml TOP UD 14 Days Reported Feosol (Ferrous Sulfate) 325 Mg Tablet 325 Mg PO DAILY Cyproheptadine HCl 4 Mg Tablet 4 Mg PO BID Glucagen (Glucagon,Human Recombinant) 1 Mg Vial 1 Mg INJ UD PRN Iprat-Albut 0.5-3(2.5) mg/3 ml (Ipratropium/Albuterol Sulfate) 3 Ml Ampul.neb 3 Ml NEB 0800,1400,2000 Combivent Respimat Inhal [place] (Albuterol/Ipratropium) 4 Gm Aero 1 Puff INH 0800 ,1130,1500,1830 PRN Cranberry (Cranberry Extract) 500 Mg Tablet 1,500 Mg PO HS Lorazepam 0.5 Mg Tablet 1 Mg PO HS TAKES 2 (0.5MG) TABLETS Novolog (Insulin Aspart) 100 Unit/1 Ml Susp SC AC BELOW 100 = 0 UNITS 100-130 = 2 UNITS 131-160 = 3 UNITS 161-190 = 4 UNITS 191 OR HIGHER = 5 UNITS Magnesium (Magnesium Oxide) 500 Mg Capsule 500 Mg PO DAILY Lorazepam 0.5 Mg Tablet 0.5 Mg PO DAILY Voltaren (Diclofenac Sodium) 100 Gm Gel..gram. TOP BID PRN APPLY TO RIGHT HAND Donepezil HCl 10 Mg Tablet 10 Mg PO HS Atorvastatin Calcium 80 Mg Tablet 80 Mg PO DAILY Vitamin D2 (Ergocalciferol (Vitamin D2)) 50,000 Unit Capsule 50,000 Units PO MO Venlafaxine HCl ER (Venlafaxine HCl) 150 Mg Cap.er.24h 150 Mg PO DAILY Melatonin 10 Mg Tablet.er 10 Mg PO HS Probiotic (L.acidoph & Paracasei,B.lactis) 1 Each Capsule 1 Cap PO DAILY Cyanocobalamin Injection (Cyanocobalamin) 1,000 Mcg/Ml Inj 1,000 Mcg IJ OF Nexium (Esomeprazole Magnesium) 40 Mg Cap 40 Mg PO DAILY Aspir 81 (Aspirin) 81 Mg Tablet.dr 81 Mg PO DAILY Plavix (Clopidogrel Bisulfate) 75 Mg Tablet 75 Mg PO DAILY Pioglitazone HCl 15 Mg Tablet 15 Mg PO DAILY Lantus (Insulin Glargine,Hum.rec.anlog) 100 Unit/1 Ml Vial 23 Unit SQ HS Invokana (Canagliflozin) 100 Mg Tablet 100 Mg PO DAILY Instructions to patient/family Please see electronic discharge instructions given to patient. Clinical Quality Measures DVT/VTE Risk/Contraindication: Risk Factor Score Per Nursin RFS Level Per Nursing on Admit: 4+=Very High Problem Qualifiers (1) Sepsis: Sepsis type: sepsis due to unspecified organism Qualified Codes: A41.9 - Sepsis, unspecified organism (2) UTI (urinary tract infection): Urinary tract infection type: acute cystitis Hematuria presence: without hematuria Qualified Codes: N30.00 - Acute cystitis without hematuria (3) Dementia: Dementia type: unspecified type Dementia behavioral disturbance: without behavioral disturbance Qualified Codes: F03.90 - Unspecified dementia without behavioral disturbance (4) CAD (coronary artery disease): Coronary Disease-Associated Artery/Lesion type: [place] artery [place] vs. transplanted heart: [place] heart Associated angina: without angina Qualified Codes: I25.10 - Atherosclerotic heart disease of [place] coronary artery without angina pectoris CARMEN RAMIREZ DO Aug 10, 2018 10:57
--- NOTE | 2018-08-10 11:07 | NUR ---
CM/SS spoke with the patient and the family in the room. Patient was starting HHC with [facility] before she ended up in the hospital. HHC will resume at discharge. Discharge information sent to [facility]. Set up IV antibiotics with ki riggs and the daughter will transport her for the antibiotics.
[2018-08-10] MEDS: NS IV 1000 ML 1,000 ML IV SCH (11:54)
[2018-08-11] MEDS ORDERED: TROUGH ORDER-PHARMACY XX NR (07:30)
== END 2018-08-10 14:15 | disposition home health service (06) | DRG 857 ==
LOC: EDUNIT# 10:04 → ER 10:05 → 4TH 13:00
PROVIDERS: ADMIT Family Medicine; ATTEND Family Medicine
PROC: 0QB70ZZ Excision of Left Upper Femur, Open Approach (ICD-10-PCS; principal; 2018-08-07 08:25)
DX: T81.44XA Sepsis following a procedure, initial encounter (principal); T84.52XA Infection and inflammatory reaction due to internal left hip prosthesis, initial encounter; B96.89 Other specified bacterial agents as the cause of diseases classified elsewhere; N30.00 Acute cystitis without hematuria; F03.90 Unspecified dementia, unspecified severity, without behavioral disturbance, psychotic disturbance, mood disturbance, and anxiety; I25.10 Atherosclerotic heart disease of native coronary artery without angina pectoris; I73.9 Peripheral vascular disease, unspecified; D50.9 Iron deficiency anemia, unspecified; E11.649 Type 2 diabetes mellitus with hypoglycemia without coma; I25.2 Old myocardial infarction; E78.00 Pure hypercholesterolemia, unspecified; K21.9 Gastro-esophageal reflux disease without esophagitis; F41.9 Anxiety disorder, unspecified; M81.0 Age-related osteoporosis without current pathological fracture; M19.91 Primary osteoarthritis, unspecified site; M54.9 Dorsalgia, unspecified; Z96.642 Presence of left artificial hip joint; Z86.73 Personal history of transient ischemic attack (TIA), and cerebral infarction without residual deficits; Z87.891 Personal history of nicotine dependence; Z95.5 Presence of coronary angioplasty implant and graft; Z79.4 Long term (current) use of insulin; Z87.19 Personal history of other diseases of the digestive system
CPT/HCPCS: 36415; 36556; 36569; 51702; 71045; 72128; 72131; 76937; 80053; 80202; 81000; 82962; 83605; 85007; 85014; 85018; 85025; 85027; 85652; 86141; 86850; 86900; 86901; 86920; 87040; 87070; 87075; 87077; 87081; 87088; 87205; 87324; 87449; 87804; 96374; 96375

== ENCOUNTER 2018-08-15 13:30 | Outpatient (RCR) | payer MEDICARE, MEDICAID ==
[2018-08-11 13:25] VITALS: BP 111/53
[2018-08-11] MEDS: VANCOMYCIN 2000 MG/NS 500 ML IVPB IV SCH ×2 (14:10)
[2018-08-12 13:07] VITALS: BP 103/42
[2018-08-12] MEDS: VANCOMYCIN 2000 MG/NS 500 ML IVPB IV SCH ×2 (13:48)
[2018-08-12 14:08] LABS: BUN/CREATININE RATIO 10; CALCIUM 7.5 MG/DL (8.5-10.1); CARBON DIOXIDE 24 MMOL/L (21-32); CHLORIDE 108 MMOL/L (98-107); CREATININE SERUM 0.78 MG/DL (0.60-1.30); GFR ESTIMATED > 60; GLUCOSE 195 MG/DL (70-105); POTASSIUM 3.5 MMOL/L (3.6-5.0); SODIUM 140 MMOL/L (135-145)
--- NOTE | 2018-08-12 14:11 | Diagnostic Imaging Report ---
INDICATION: PICC line placement. TIME OF EXAM: 01:52 p.m. Correlation is made with prior study from 08/09/2018. FINDINGS: The left upper extremity PICC line tip is difficult to see on this study. It may be overlying the left innominate vein. Lungs are clear. There is no pneumothorax. There is no effusion. The pulmonary vascularity is normal. IMPRESSION: Tip of the PICC line is difficult to visualize on this exam. It is likely overlying either left innominate vein or at the innominate vein confluence with the SVC. Dictated by: Dictated on workstation # [id number]
[2018-08-12 14:16] LABS: VANCOMYCIN,TROUGH 21.3 UG/ML (10.0-20.0)
--- NOTE | 2018-08-12 16:25 | Diagnostic Imaging Report ---
INDICATION: Central venous catheter evaluation. TIME OF EXAM: 1614 hours. FINDINGS: Portable AP view of the chest is obtained. Since the study of earlier in the day, there has been repositioning of left upper extremity PICC. Catheter is now directed cephalad in the left neck, likely within the jugular vein. There is no pneumothorax. Heart size and pulmonary vascularity are within normal limits. IMPRESSION: Left upper extremity PICC extends into the left neck. Dictated by: Dictated on workstation # [id number]
--- NOTE | 2018-08-12 17:09 | Diagnostic Imaging Report ---
INDICATION: PICC placement. COMPARISON: 08/12/2018 at 04:14 p.m. FINDINGS: Left PICC has been advanced and now has tip at the superior cavoatrial junction. Left basilar reticular opacities are similar. No pleural effusion or pneumothorax. Heart is stable in size. IMPRESSION: 1. Well-positioned left PICC. 2. Stable left basilar opacities which could be due to atelectasis or cellular bronchiolitis. Dictated by: Dictated on workstation # [id number]
[2018-08-13 13:59] VITALS: BP 119/63
[2018-08-13] MEDS: VANCOMYCIN 2000 MG/NS 500 ML IVPB IV SCH ×2 (14:00)
[2018-08-13 16:04] VITALS: BP 119/63
[2018-08-14 13:50] VITALS: BP 109/52
[2018-08-14] MEDS: VANCOMYCIN 2000 MG/NS 500 ML IVPB IV SCH ×2 (14:01)
[2018-08-14 16:04] VITALS: BP 109/52
[~2018-08-15] VITALS: Ht 162.6 cm; Wt 56.4 kg
[~2018-08-15 13:30] MED LIST changes: +CYPR4TAB41 PO; +FERR-65 PO; +SODI473S7 TOP; +TROUGH ORDER-PHARMACY XX NR; +VANC2PLA3 IV
[2018-08-15 14:40] VITALS: BP 123/47
[2018-08-16] MEDS ORDERED: VANCOMYCIN INJECTION 1,500 MG in NS IV 500 ML 500 ML IV SCH (14:45)
--- NOTE | 2018-08-16 15:41 | Physician Query-Final Dx ---
CHAI CHO 08/16/18 1541: Clinic Account Progress/Dx Physician Query: Please give a diagnosis for the Vancomycin treatment thank you Date of Service Aug 15, 2018 at 13:30 CARMEN RAMIREZ DO 08/16/182050: Clinic Account Progress/Dx DIAGNOSIS: Diagnosis Hip septic arthritis CHAI CHO Aug 16, 2018 15:41 CARMEN RAMIREZ DO Aug 16, 2018 20:51
== END 2018-11-09 | disposition still patient (30) ==
LOC: SDC 13:30
PROVIDERS: ATTEND Internal Medicine
DX: M00.859 Arthritis due to other bacteria, unspecified hip (principal)
CPT/HCPCS: 36415; 36591; 71045; 80048; 80202; 96365; 96366

== ENCOUNTER 2018-08-24 10:14 | Outpatient (CLI) | payer MEDICARE, MEDICAID ==
[~2018-08-24] VITALS: Ht 162.6 cm; Wt 56.4 kg
[~2018-08-24 10:14] MED LIST changes: -TROUGH ORDER-PHARMACY XX NR
[2018-08-24 10:20] VITALS: BP 109/56
--- NOTE | 2018-08-24 11:24 | Diagnostic Imaging Report ---
INDICATION: PICC line placement Portable chest 11:08 AM Left upper extremity PICC line tip projects over the SVC. Heart size and pulmonary vascularity are normal. There is some left basilar atelectasis. IMPRESSION: Left basilar atelectasis unchanged from 08/12/2018. PICC line tip projects over the SVC. Dictated by: Dictated on workstation # [id number]
== END 2018-08-24 11:55 | disposition home or self-care (01) ==
LOC: SDC 10:14
PROVIDERS: ATTEND Internal Medicine
DX: I74.3 Embolism and thrombosis of arteries of the lower extremities (principal); R71.8 Other abnormality of red blood cells
CPT/HCPCS: 36569; 71045; 76937

== ENCOUNTER → 2018-09-04 | Outpatient (CLI) | payer MEDICARE, MEDICAID | LOC: CVS 03:23 | PROVIDERS: ATTEND Internal Medicine | DX: Z51.81 Encounter for therapeutic drug level monitoring (principal); Z79.2 Long term (current) use of antibiotics | CPT/HCPCS: 80202 ==

== ENCOUNTER → 2018-09-10 | Outpatient (CLI) | payer MEDICARE, MEDICAID | LOC: LABNPT 01:42 | PROVIDERS: ATTEND Internal Medicine | DX: Z51.81 Encounter for therapeutic drug level monitoring (principal); Z79.2 Long term (current) use of antibiotics | CPT/HCPCS: 80202 ==

== ENCOUNTER → 2018-09-10 | Outpatient (CLI) | payer MEDICARE, MEDICAID | LOC: CVS 21:43 | PROVIDERS: ATTEND Internal Medicine | DX: Z51.81 Encounter for therapeutic drug level monitoring (principal); Z79.2 Long term (current) use of antibiotics | CPT/HCPCS: 80202 ==

== ENCOUNTER → 2018-09-17 | Outpatient (CLI) | payer MEDICAID, MEDICARE | LOC: CVS 20:55 | PROVIDERS: ATTEND Internal Medicine | DX: Z51.81 Encounter for therapeutic drug level monitoring (principal); Z79.2 Long term (current) use of antibiotics | CPT/HCPCS: 80202 ==

== ENCOUNTER → 2018-09-19 | Outpatient (CLI) | payer MEDICARE | LOC: CVS 20:21 | PROVIDERS: ATTEND Internal Medicine | DX: T84.021S Dislocation of internal left hip prosthesis, sequela (principal); Z79.2 Long term (current) use of antibiotics | CPT/HCPCS: 80202 ==

== ENCOUNTER → 2018-09-22 | Outpatient (CLI) | payer MEDICARE | LOC: LABNPT 21:44 | PROVIDERS: ATTEND Internal Medicine | DX: Z51.81 Encounter for therapeutic drug level monitoring (principal); Z79.2 Long term (current) use of antibiotics | CPT/HCPCS: 80202 ==

== ENCOUNTER → 2018-09-25 | Outpatient (CLI) | payer MEDICARE | LOC: CVS 20:44 | PROVIDERS: ATTEND Internal Medicine | DX: Z51.81 Encounter for therapeutic drug level monitoring (principal); Z79.2 Long term (current) use of antibiotics | CPT/HCPCS: 80202 ==

== ENCOUNTER → 2018-09-28 | Outpatient (CLI) | payer MEDICARE | LOC: LABNPT 21:03 | PROVIDERS: ATTEND Internal Medicine | DX: Z51.81 Encounter for therapeutic drug level monitoring (principal); Z79.2 Long term (current) use of antibiotics | CPT/HCPCS: 80202 ==

== ENCOUNTER 2019-04-07 20:52 | Emergency (ER) | payer MEDICARE, MEDICAID ==
[~2019-04-07] VITALS: Ht 162.5 cm; Wt 56.4 kg
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
--- NOTE | 2019-04-07 21:50 | Diagnostic Imaging Report ---
PROCEDURE: CT head and CT cervical spine without contrast. TECHNIQUE: Multiple contiguous axial images were obtained through the brain and cervical spine without the use of intravenous contrast. Sagittal and coronal reformations through the cervical spine were then performed. Auto Exposure Controls were utilized during the CT exam to meet ALARA standards for radiation dose reduction. INDICATION: Neck pain. FINDINGS: CT HEAD There are large areas of old ischemic injury in the left frontal lobe and right posterior parietal lobe. There are no masses, hemorrhages or extra-axial fluid collections. IMPRESSION: Old ischemic vascular changes. No acute abnormality. CT CERVICAL SPINE: Vertebral body height and alignment appear normal. There are degenerative changes of the atlantoaxial joint and of the disks at C5-C6 and C6-C7. There is no fracture or misalignment. IMPRESSION: Degenerative changes. No acute abnormality is seen. Dictated by: Dictated on workstation # [id number]
--- NOTE | 2019-04-07 22:10 | NUR ---
[facility] called spoke with aereal rn informed of pt's discharge et. need for transportation. no fx. found on ct exam.
--- NOTE | 2019-04-07 23:20 | NUR ---
[facility] called requested update on transfer availability.
--- NOTE | 2019-04-08 00:30 | NUR ---
[facility] nay contacted to try to call [facility] about pt transportation. [facility] not answering phone. family updated on status.
--- NOTE | 2019-04-08 01:00 | NUR ---
hs reports [facility] arranging transportation.
--- NOTE | 2019-04-08 01:44 | NUR ---
[facility] contacted reguarding pt transportation no estimated eta for transport.
--- NOTE | 2019-04-08 01:47 | NUR ---
ems declined to transport patient.
[2019-04-08 02:45] VITALS: BP 136/91
--- NOTE | 2019-04-08 07:02 | Diagnostic Imaging Report ---
INDICATION: Chest pain, dementia. COMPARISON: 08/24/2018. FINDINGS: Single view of the chest demonstrates stable cardiac enlargement and lungs are clear. There is no pneumothorax. Osseous structures are normal. IMPRESSION: Stable cardiac enlargement without pulmonary edema or infiltrate. Dictated by: Dictated on workstation # [id number]
--- NOTE | 2019-04-08 07:04 | Diagnostic Imaging Report ---
INDICATION: Hip pain. COMPARISON: 07/22/2018. FINDINGS: Single view of the pelvis demonstrates stable appearing right hip arthroplasty. 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 The bony pelvis is intact. There is no acute fracture-dislocation. IMPRESSION: Status post removal of a left hip arthroplasty. No acute fracture or dislocation. Dictated by: Dictated on workstation # [id number]
--- OUTSIDE RECORDS SUMMARY | 2019-05-03 17:34 | XMS REPORT | Continuity of Care Document ---
Author Organization Unknown Address Unknown Phone Unavailable Allergies Active Description Code Type Severity Reaction Onset Reported/Identified Relationship to Patient Clinical Status Yes No Known Drug Allergies [id number] Drug Allergy Unknown N/A 01/29/2017 Medications There is no data. Problems Date Dx Coded Attending Type Code Diagnosis Diagnosed By 04/08/1135 JOSEY RIDER DO Ot S32.010D WEDGE COMPRSN FX FIRST LUM VERT, SUBS FO 04/08/1135 JOSEY RIDER DO Ot Z09 ENCNTR FOR F/U EXAM AFT TRTMT FOR COND O 11/18/2011 Ot 250.00 JESSICA B JEFFY WO COMPL, TYPE II OR UNSPEC TY 11/18/2011 Ot 272.4 HYPE RLIPIDEMIA NEC/NOS 11/18/2011 Ot 401.9 HYPE RTENSION NOS 11/18/2011 Ot 412 OLD MY OCARDIAL INFARCT 11/18/2011 Ot 414.01 COR ONARY ATHEROSCLEROSIS OF [place] CORON 11/18/2011 Ot 433.10 CAR OTID ARTERY OCCLUSION W O CEREBRAL IN 11/18/2011 Ot 530.81 ESO PHAGEAL REFLUX 11/18/2011 Ot 781.3 LACK OF COORDINATION 11/18/2011 Ot 793.11 ALYSSA ITARY PULMONARY NODULE 11/18/2011 Ot 799.02 HYP OXEMIA 11/18/2011 Ot V58.67 MARIO G-TERM (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 11/24/2011 Ot 250.00 JESSICA B JEFFY WO COMPL, TYPE II OR UNSPEC TY 11/24/2011 Ot 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 11/24/2011 Ot 401.9 HYPE RTENSION NOS 11/24/2011 Ot 414.01 COR ONARY ATHEROSCLEROSIS OF [place] CORON 11/24/2011 Ot 433.10 CAR OTID ARTERY OCCLUSION W O CEREBRAL IN 11/24/2011 Ot V45.82 PER CUTANEOUS TRANSLUM CORON ANGIOPLASTY 05/29/2013 LAURIE MARCUM, RD [...] RIDER DO Ot 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 [place] CORON 08/03/2014 JOSEY RIDER DO Ot 443.9 [...] 793.82 08/06/2014 Ot V76.12 08/06/2014 NEY ASTUDILLO WINE 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 Ot 719.07 08/06/2014 NEY ASTUDILLO WINE 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 Ot 719.47 08/06/2014 JOSEY RIDER DO, Ot V76.12 08/06/2014 Ot V76.12 08/09/2014 Ot V76.12 08/24/2014 Ot V76.12 09/06/2014 LAURIE MARCUM, RD Newman Ot 250.80 DIAB W OTH SPEC MANIFEST, TYPE II OR UNS 09/06/2014 LAURIE MARCUM, RD Newman Ot 401.9 HYPERTENSION NOS 09/06/2014 RD SULLIVAN MD Ot V58.67 LONG-TERM (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 09/06/2014 RD SULLIVAN MD Ot V58.69 OT MED,LT,CURRENT USE 09/23/2014 ROBERT JAMISON APRN Ot 250.80 DIAB W OTH SPEC MANIFEST, TYPE II OR UNS 09/23/2014 ROBERT JAMISON APRN Ot 251 .2 HYPOGLYCEMIA NOS 09/25/2014 JOSEY RIDER DO Ot 250.80 DIAB W OTH SPEC MANIFEST, TYPE II OR UNS 09/25/2014 JOSEY RIDER DO Ot 305.1 TOBACCO USE DISORDER 09/25/2014 JOSEY RIDER DO Ot 311 DEPRESSIVE DISORDER NEC 09/25/2014 JOSEY RIDER DO Ot 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 [place] CORON 09/25/2014 JOSEY RIDER DO Ot 530.81 ESOPHAGEAL REFLUX 09/25/2014 JOSEY RIDER DO Ot V45.82 PERCUTANEOUS TRANSLUM CORON ANGIOPLASTY 09/25/2014 JOSEY RIDER DO Ot V58.67 LONG-TERM (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 01/31/2015 KYMBERLY DPM, DAVID Q Ot 250. 00 DIAB JEFFY WO COMPL, TYPE II OR UNSPEC TY 01/31/2015 KYMBERLY DPM, DAVID Q Ot 414. 00 CORON ATHEROSCLER NOS TYPE VESSEL, NATIV 01/31/2015 KYMBERLY DPM, DAVID Q Ot 727. 1 BUNION 01/31/2015 KYMBERLY DPM, DAVID Q Ot V58. 63 LONG-TERM(CURRENT)USE OF ANTIPLATELET/AN 01/31/2015 KYMBERLY DPM, DAVID Q Ot V58. 67 LONG-TERM (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 01/31/2015 KYMBERLY DPM, DAVID Q Ot V58. 69 OTH MED,LT,CURRENT USE 01/31/2015 KYMBERLY DPM, DAVID Q Ot V64. 3 NO PROC FOR REASONS NEC 02/14/2015 ABRAN MARCUM FACC, JOAQUÍN FACP CCDS Ot 272.4 02/14/2015 ABRAN [...] KYMBERLY DPM, DAVID Q Ot Z79.899 OTHER COPY DIRECTOR (CURRENT) DRUG THERAPY 02/20/2015 ABRAN MARCUM FACC, JOAQUÍN FACP CCDS Ot 272.4 02/20/2015 ABRAN HINOJOSAC, ALI FACP CCDS Ot 401.9 02/20/2015 ABRAN [...] CCDS Ot 414.9 04/15/2015 ABRAN MARCUM FACC, JOAQUÍN LUI CCDS Ot 433.10 04/17/2015 KYMBERLY DPM, DAVID [...] MD Ot I25.10 ATHSCL HEART DISEASE OF [place] CORONARY 12/03/2015 RD SULLIVAN MD Ot R07.9 CHEST PAIN, UNSPECIFIED 12/03/2015 RD SULLIVAN MD Ot Z95.5 PRESENCE OF CORONARY ANGIOPLASTY IMPLANT 12/04/2015 RD SULLIVAN MD Ot F17.210 NICOTINE DEPENDENCE, CIGARETTES, UNCOMPL 12/04/2015 RD SULLIVAN MD Ot I10 ESSENTIAL (PRIMARY) HYPERTENSION 12/04/2015 RD SULLIVAN MD Ot I25.10 ATHSCL HEART DISEASE OF [place] CORONARY 12/04/2015 RD SULLIVAN MD Ot R07.9 CHEST PAIN, UNSPECIFIED 12/04/2015 DR SULLIVAN MD Ot Z95.5 PRESENCE OF CORONARY ANGIOPLASTY IMPLANT 12/05/2015 RD SULLIVAN MD Ot F17.210 NICOTINE DEPENDENCE, CIGARETTES, UNCOMPL 12/05/2015 RD SULLIVAN MD Ot I10 ESSENTIAL (PRIMARY) HYPERTENSION 12/05/2015 RD SULLIVAN MD Ot I25.10 ATHSCL HEART DISEASE OF [place] CORONARY 12/05/2015 RD SULLIVAN MD Ot R07.9 CHEST PAIN, UNSPECIFIED 12/05/2015 RD SULLIVAN MD Ot Z95.5 PRESENCE OF CORONARY ANGIOPLASTY IMPLANT 12/09/2015 RD SULLIVAN MD Ot F17.210 NICOTINE DEPENDENCE, CIGARETTES, UNCOMPL 12/09/2015 RD SULLIVAN MD Ot I10 ESSENTIAL (PRIMARY) HYPERTENSION 12/09/2015 RD SULLIVAN MD Ot I25.10 ATHSCL HEART DISEASE OF [place] CORONARY 12/09/2015 RD SULLIVAN MD Ot R07.9 CHEST PAIN, UNSPECIFIED 12/09/2015 RD SULLIVAN MD Ot Z95.5 PRESENCE OF CORONARY ANGIOPLASTY IMPLANT 12/26/2015 ANAYELI DICKENS VOIP NETWORK ENGINEER Ot Z53.9 PROCEDURE AND TREATMENT NOT CARRIED OUT, 12/26/2015 ANAYELI DICKENS VOIP NETWORK ENGINEER Ot E78.4 OTHER HYPERLIPIDEMIA 12/26/2015 ANAYELI DICKENS L VOIP NETWORK ENGINEER Ot I65.23 OCCLUSION AND STENOSIS OF BILATERAL NG 01/17/2016 CHRISSIE ANAYELI L VOIP NETWORK ENGINEER Ot E78.4 OTHER HYPERLIPIDEMIA 01/17/2016 BAIMA ANAYELI L VOIP NETWORK ENGINEER Ot I65.23 OCCLUSION AND STENOSIS OF BILATERAL NG 01/24/2016 BAIMA, ANAYELI L VOIP NETWORK ENGINEER Ot I65.23 OCCLUSION AND STENOSIS OF BILATERAL NG 01/27/2016 JOSEY RIDER DO Ot R92.8 OTH ABN AND INCONCLUSIVE FINDINGS ON DX 01/27/2016 JOSEY RIDER DO Ot R92.8 OTH ABN AND INCONCLUSIVE FINDINGS ON DX 01/30/2016 CHRISSIE ANAYELI L VOIP NETWORK ENGINEER Ot E78.4 OTHER HYPERLIPIDEMIA 01/30/2016 NICKMA ANAYELI L VOIP NETWORK ENGINEER Ot I65.23 OCCLUSION AND STENOSIS OF BILATERAL NG 02/04/2016 NICKMA ANAYELI L VOIP NETWORK ENGINEER Ot I65.23 OCCLUSION AND STENOSIS OF BILATERAL NG 02/05/2016 JOSEY RIDER DO Ot R92.8 OTH ABN AND INCONCLUSIVE FINDINGS ON DX 02/14/2016 Ot V76.12 OTH SCREEN MAMMO- MALIGN NEOPLASM OF [place] 02/14/2016 Ot 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 02/14/2016 Ot 492.8 EMPH YSEMA NEC 02/14/2016 Ot 783.21 LOS S OF WEIGHT 02/14/2016 Ot 786.7 ABNO RMAL CHEST SOUNDS 02/14/2016 Ot 414.00 COR ON ATHEROSCLER NOS TYPE VESSEL, NATIV 02/14/2016 Ot 496 CHR AI RWAY OBSTRUCT NEC 02/14/2016 Ot 793.19 OTH ER NONSPECIFIC ABNORMAL FINDING OF PRISCILLA 02/14/2016 Ot 250.00 JESSICA B JEFFY WO COMPL, TYPE II OR UNSPEC TY 02/14/2016 Ot 272.4 HYPE RLIPIDEMIA NEC/NOS 02/14/2016 Ot 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 02/14/2016 Ot 401.9 HYPE RTENSION NOS 02/14/2016 Ot 414.01 COR ONARY ATHEROSCLEROSIS OF [place] CORON 02/14/2016 Ot 433.10 CAR OTID ARTERY OCCLUSION W O CEREBRAL IN 02/14/2016 Ot V13.02 PER RY HISTORY, URINARY (TRACT) INFECT 02/14/2016 Ot V45.82 PER CUTANEOUS TRANSLUM CORON ANGIOPLASTY 02/14/2016 Ot V58.63 MARIO G- TERM(CURRENT)USE OF ANTIPLATELET/AN 02/14/2016 Ot V58.67 MARIO G-TERM (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 02/14/2016 Ot V58.69 OTH MED,LT,CURRENT USE 02/14/2016 Ot 433.10 CAR OTID ARTERY OCCLUSION W O CEREBRAL IN 02/14/2016 Ot V72.63 PRE -PROCEDURAL LABORATORY EXAMINATION 02/14/2016 Ot V74.8 SCRE EN-BACTERIAL DIS NEC 02/14/2016 Ot V67.09 STEPHANIA YOSEF FOLLOW- UP, OTHER SURGERY 02/14/2016 Ot 793.82 INC ONCLUSIVE MAMMOGRAM 02/14/2016 Ot V76.12 OTH SCREEN MAMMO- MALIGN NEOPLASM OF [place] 02/14/2016 RIDSHERRI, NEY C WINE 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 Ot 719.07 JOINT EFFUSION-ANKLE 02/14/2016 RIDSHERRI NEY C WINE 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 Ot 719.47 JOINT PAIN-ANKLE 02/14/2016 JOSEY RIDER DO Ot V76.12 OTH SCREEN MAMMO-MALIGN NEOPLASM OF [place] 02/14/2016 Ot V76.12 OTH SCREEN MAMMO- MALIGN NEOPLASM OF [place] 02/14/2016 KYMBERLY DPM, DAVID Q Ot 727. 1 BUNION 02/14/2016 KYMBERLY DPM, DAVID Q Ot V72. 83 EXAM PRE-OPERATIVE NEC 02/14/2016 ABRAN MARCUM FACC, ALI FACP CCDS [...] INCONCLUSIVE FINDINGS ON DX 02/14/2016 ANAYELI DICKENS VOIP NETWORK ENGINEER Ot I65.23 OCCLUSION AND STENOSIS OF BILATERAL NG 02/14/2016 ANAYELI DICKENS VOIP NETWORK ENGINEER Ot Z53.9 PROCEDURE AND TREATMENT NOT CARRIED OUT, 02/14/2016 ANAYELI DICKENS VOIP NETWORK ENGINEER Ot E78.4 OTHER HYPERLIPIDEMIA 02/14/2016 ANAYELI DICKENS VOIP NETWORK ENGINEER Ot I65.23 OCCLUSION AND STENOSIS OF BILATERAL NG 02/14/2016 JOSEY RIDER DO Ot R92.8 OTH ABN AND INCONCLUSIVE FINDINGS ON DX 02/18/2016 ANAYELI DICKENS VOIP NETWORK ENGINEER Ot E78.4 OTHER HYPERLIPIDEMIA 02/18/2016 ANAYELI DICKENS VOIP NETWORK ENGINEER Ot I25.10 ATHSCL HEART DISEASE OF [place] CORONARY 03/06/2016 BAIANAYELI HURTADO VOIP NETWORK ENGINEER Ot E78.4 OTHER HYPERLIPIDEMIA 03/06/2016 BAIANAYELI HURTADO VOIP NETWORK ENGINEER Ot I25.10 ATHSCL HEART DISEASE OF [place] CORONARY 03/18/2016 BAIANAYELI HURTADO VOIP NETWORK ENGINEER Ot E78.4 OTHER HYPERLIPIDEMIA 03/18/2016 BAIANAYELI HURTADO VOIP NETWORK ENGINEER Ot I25.10 ATHSCL HEART DISEASE OF [place] CORONARY 04/10/2016 RIDER DO, JOSEY J Ot R15.9 FULL INCONTINENCE OF FECES 04/10/2016 RIDER DO, JOSEY J Ot R32 UNSPECIFIED URINARY INCONTINENCE 04/10/2016 RIDER DO, JOSEY J Ot R15.9 FULL INCONTINENCE OF FECES 04/10/2016 RIDER DO, JOSEY J Ot R32 UNSPECIFIED URINARY INCONTINENCE 04/22/2016 RIDER DO JOSEY Kati Ot R92.8 OTH ABN AND INCONCLUSIVE FINDINGS ON DX 05/07/2016 RIDER DO, JOSEY J Ot R15.9 FULL INCONTINENCE OF FECES 05/07/2016 RIDER DO, JOSEY J Ot R32 UNSPECIFIED URINARY INCONTINENCE 05/07/2016 RIDER DO, JOSEY J Ot R15.9 FULL INCONTINENCE OF FECES 05/07/2016 RIDER DO, JOSEY J Ot R32 UNSPECIFIED URINARY INCONTINENCE 06/18/2016 JOSEY RIDER DO Ot R19.7 DIARRHEA, UNSPECIFIED 07/21/2016 JOSEY RIDER DO Ot R92.2 INCONCLUSIVE MAMMOGRAM 07/21/2016 JOSEY RIDER DO Ot R92.2 INCONCLUSIVE MAMMOGRAM 07/21/2016 RIDER DO, JOSEY J Ot R92.2 INCONCLUSIVE MAMMOGRAM 07/21/2016 RIDER DO, JOSEY J Ot R92.8 OTH ABN AND INCONCLUSIVE FINDINGS ON DX 08/03/2016 KAYLIN DONIS Ot E11.9 TYPE 2 DIABETES MELLITUS WITHOUT COMPLIC 08/03/2016 KAYLIN DONIS Ot F17.210 NICOTINE DEPENDENCE, CIGARETTES, UNCOMPL 08/03/2016 KAYLIN DONIS Ot I25.10 ATHSCL HEART DISEASE OF [place] CORONARY 08/03/2016 KAYLIN DONIS Ot S01.511A LACERATION WITHOUT FOREIGN BODY OF LIP, 08/03/2016 AKYLIN DONIS Ot S60.512A ABRASION OF LEFT HAND, INITIAL ENCOUNTER 08/03/2016 KAYLIN DONIS Ot W19.XXXA UNSPECIFIED FALL, INITIAL ENCOUNTER 08/03/2016 KAYLIN DONIS Ot Y99.8 OTHER EXTERNAL CAUSE STATUS 08/03/2016 KAYLIN DONIS Ot Z 23 ENCOUNTER FOR IMMUNIZATION 08/03/2016 KAYLIN DONIS Ot Z79.4 GROUP HOME (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 08/03/2016 KAYLIN DONIS Ot Z79.82 COPY DIRECTOR (CURRENT) USE OF ASPIRIN 08/03/2016 KAYLIN DONIS Ot Z79.899 OTHER COPY DIRECTOR (CURRENT) DRUG THERAPY 08/03/2016 KAYLIN DONIS Ot Z95.5 PRESENCE OF CORONARY ANGIOPLASTY IMPLANT 08/03/2016 KAYLIN DONIS Ot Z96.641 PRESENCE OF RIGHT ARTIFICIAL HIP JOINT 08/11/2016 JOSEY RIDER DO Ot R92.8 OTH ABN AND INCONCLUSIVE FINDINGS ON DX 08/19/2016 JOSEY RIDER DO Ot R92.8 OTH ABN AND INCONCLUSIVE FINDINGS ON DX 08/25/2016 ANAYELI DICKENS VOIP NETWORK ENGINEER Ot E78.4 OTHER HYPERLIPIDEMIA 08/25/2016 ANAYELI DICKENS L VOIP NETWORK ENGINEER Ot I 10 ESSENTIAL (PRIMARY) HYPERTENSION 08/25/2016 ANAYELI DICKENS VOIP NETWORK ENGINEER Ot I25.10 ATHSCL HEART DISEASE OF [place] CORONARY 09/15/2016 JOSEY RIDER DO Ot R19.7 DIARRHEA, UNSPECIFIED 09/22/2016 BAIMAANAYELI L VOIP NETWORK ENGINEER Ot E78.4 OTHER HYPERLIPIDEMIA 09/22/2016 BAIMAANNEANAYELI L VOIP NETWORK ENGINEER Ot I 10 ESSENTIAL (PRIMARY) HYPERTENSION 09/22/2016 ANAYELI DICKENS L VOIP NETWORK ENGINEER Ot I25.10 ATHSCL HEART DISEASE OF [place] CORONARY 09/28/2016 BAIMAANAYELI L VOIP NETWORK ENGINEER Ot E78.4 OTHER HYPERLIPIDEMIA 09/28/2016 ANAYELI DICKENS VOIP NETWORK ENGINEER Ot I 10 ESSENTIAL (PRIMARY) HYPERTENSION 09/28/2016 ANAYELI DICKENS VOIP NETWORK ENGINEER Ot I25.10 ATHSCL HEART DISEASE OF [place] CORONARY 10/13/2016 KAYLIN DONIS Ot E11.9 TYPE 2 DIABETES MELLITUS WITHOUT COMPLIC 10/13/2016 KAYLIN DONIS Ot F17.210 NICOTINE DEPENDENCE, CIGARETTES, UNCOMPL 10/13/2016 KAYLIN DONIS Ot I25.10 ATHSCL HEART DISEASE OF [place] CORONARY 10/13/2016 KAYLIN DONIS Ot S01.511A LACERATION WITHOUT FOREIGN BODY OF LIP, 10/13/2016 KAYLIN DONIS Ot S60.512A ABRASION OF LEFT HAND, INITIAL ENCOUNTER 10/13/2016 KAYLIN DONIS Ot W19.XXXA UNSPECIFIED FALL, INITIAL ENCOUNTER 10/13/2016 KAYLIN DONIS Ot Y99.8 OTHER EXTERNAL CAUSE STATUS 10/13/2016 KAYLIN DONIS Ot Z 23 ENCOUNTER FOR IMMUNIZATION 10/13/2016 KAYLIN DONIS Ot Z79.4 COPY DIRECTOR (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 10/13/2016 KAYLIN DONIS Ot Z79.82 GROUP HOME (CURRENT) USE OF ASPIRIN 10/13/2016 KAYLIN DONIS Ot Z79.899 OTHER GROUP HOME (CURRENT) DRUG THERAPY 10/13/2016 KAYLIN DONIS Ot Z95.5 PRESENCE OF CORONARY ANGIOPLASTY IMPLANT 10/13/2016 KAYLIN DONIS Ot Z96.641 PRESENCE OF RIGHT ARTIFICIAL HIP JOINT 10/30/2016 KAYLIN DONIS Ot E11.9 TYPE 2 DIABETES MELLITUS WITHOUT COMPLIC 10/30/2016 KAYLIN DONIS Ot F17.210 NICOTINE DEPENDENCE, CIGARETTES, UNCOMPL 10/30/2016 KAYLIN DONIS Ot I25.10 ATHSCL HEART DISEASE OF [place] CORONARY 10/30/2016 KAYLIN DONIS Ot S01.511A LACERATION WITHOUT FOREIGN BODY OF LIP, 10/30/2016 KAYLIN DONIS Ot S60.512A ABRASION OF LEFT HAND, INITIAL ENCOUNTER 10/30/2016 KAYLIN DONIS Ot W19.XXXA UNSPECIFIED FALL, INITIAL ENCOUNTER 10/30/2016 KAYLIN DONIS Ot Y99.8 OTHER EXTERNAL CAUSE STATUS 10/30/2016 KAYLIN DONIS Ot Z 23 ENCOUNTER FOR IMMUNIZATION 10/30/2016 KAYLIN DONIS Ot Z79.4 GROUP HOME (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 10/30/2016 KAYLIN DONIS Ot Z79.82 GROUP HOME (CURRENT) USE OF ASPIRIN 10/30/2016 KAYLIN DONIS Ot Z79.899 OTHER GROUP HOME (CURRENT) DRUG THERAPY 10/30/2016 KAYLIN DONIS Ot Z95.5 PRESENCE OF CORONARY ANGIOPLASTY IMPLANT 10/30/2016 KAYLIN DONIS Ot Z96.641 PRESENCE OF RIGHT ARTIFICIAL HIP JOINT 01/14/2017 CONNOR MODI Ot E11.9 TYPE 2 DIABETES MELLITUS WITHOUT COMPLIC 01/14/2017 CONNOR MODIP Ot E78.00 PURE HYPERCHOLESTEROLEMIA, UNSPECIFIED 01/14/2017 CONNOR MODI Ot F41.9 ANXIETY DISORDER, UNSPECIFIED 01/14/2017 CONNOR MODIP Ot I25.10 ATHSCL HEART DISEASE OF [place] CORONARY 01/14/2017 CONNOR MODIP Ot I25.2 OLD MYOCARDIAL INFARCTION 01/14/2017 CONNOR MODI Ot K21.9 GASTRO-ESOPHAGEAL REFLUX DISEASE WITHOUT 01/14/2017 CONNOR MODIP Ot M51.36 OTHER INTERVERTEBRAL DISC DEGENERATION, 01/14/2017 CONNOR MODIP Ot M54.5 LOW BACK PAIN 01/14/2017 CONNOR MODIP Ot S39.012A STRAIN OF MUSCLE, FASCIA AND TENDON OF L 01/14/2017 CONNOR MODI Ot W01.0XXA FALL SAME LEV FROM SLIP/TRIP W/O STRIKE 01/14/2017 CONNOR MODI Ot Y93.01 ACTIVITY, WALKING, MARCHING AND HIKING 01/14/2017 CONNOR MODI Ot Z79.4 GROUP HOME (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 01/14/2017 CONNOR MODI Ot Z79.82 COPY DIRECTOR (CURRENT) USE OF ASPIRIN 01/14/2017 CONNOR MODI Ot Z80.9 FAMILY HISTORY OF MALIGNANT NEOPLASM, UN 01/14/2017 CONNOR MODIP Ot Z86.73 PRSNL HX OF TIA (TIA), AND CEREB INFRC W 01/14/2017 CONNOR MODI Ot Z87.19 PERSONAL HISTORY OF OTHER DISEASES OF TH 01/14/2017 CONNOR MODI Ot Z90.710 ACQUIRED ABSENCE OF BOTH CERVIX AND UTER 01/14/2017 LY, CONNOR HOWARDP Ot Z95.5 PRESENCE OF CORONARY ANGIOPLASTY IMPLANT 01/18/2017 LY, CONNOR VOIP NETWORK ENGINEER Ot E11.9 TYPE 2 DIABETES MELLITUS WITHOUT COMPLIC 01/18/2017 LY, CONNOR HOWARDP Ot E78.00 PURE HYPERCHOLESTEROLEMIA, UNSPECIFIED 01/18/2017 LY, CONNOR VOIP NETWORK ENGINEER Ot F41.9 ANXIETY DISORDER, UNSPECIFIED 01/18/2017 LY, CONNOR HOWARDP Ot I25.10 ATHSCL HEART DISEASE OF [place] CORONARY 01/18/2017 LY, CONNOR HOWARDP Ot I25.2 OLD MYOCARDIAL INFARCTION 01/18/2017 LY, CONNOR VOIP NETWORK ENGINEER Ot K21.9 GASTRO-ESOPHAGEAL REFLUX DISEASE WITHOUT 01/18/2017 YL, CONNOR VOIP NETWORK ENGINEER Ot M51.36 OTHER INTERVERTEBRAL DISC DEGENERATION, 01/18/2017 LY, CONNOR VOIP NETWORK ENGINEER Ot M54.5 LOW BACK PAIN 01/18/2017 LY, CONNOR VOIP NETWORK ENGINEER Ot S39.012A STRAIN OF MUSCLE, FASCIA AND TENDON OF L 01/18/2017 LYCONNOR Braswell VOIP NETWORK ENGINEER Ot W01.0XXA FALL SAME LEV FROM SLIP/TRIP W/O STRIKE 01/18/2017 LY, CONNOR VOIP NETWORK ENGINEER Ot Y93.01 ACTIVITY, WALKING, MARCHING AND HIKING 01/18/2017 LY, CONNOR VOIP NETWORK ENGINEER Ot Z79.4 GROUP HOME (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 01/18/2017 LY, CONNOR VOIP NETWORK ENGINEER Ot Z79.82 GROUP HOME (CURRENT) USE OF ASPIRIN 01/18/2017 LY, CONNOR VOIP NETWORK ENGINEER Ot Z80.9 FAMILY HISTORY OF MALIGNANT NEOPLASM, UN 01/18/2017 LYCONNOR Braswell VOIP NETWORK ENGINEER Ot Z86.73 PRSNL HX OF TIA (TIA), AND CEREB INFRC W 01/18/2017 LY, CONNOR VOIP NETWORK ENGINEER Ot Z87.19 PERSONAL HISTORY OF OTHER DISEASES OF TH 01/18/2017 LY, CONNOR HOWARDP Ot Z90.710 ACQUIRED ABSENCE OF BOTH CERVIX AND UTER 01/18/2017 LY, CONNRO VOIP NETWORK ENGINEER Ot Z95.5 PRESENCE OF CORONARY ANGIOPLASTY IMPLANT 01/26/2017 Ot 250.00 JESSICA B JEFFY WO COMPL, TYPE II OR UNSPEC TY 01/26/2017 Ot 272.4 HYPE RLIPIDEMIA NEC/NOS 01/26/2017 Ot 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 01/26/2017 Ot 401.9 HYPE RTENSION NOS 01/26/2017 Ot 414.01 COR ONARY ATHEROSCLEROSIS OF [place] CORON 01/26/2017 Ot 433.10 CAR OTID ARTERY OCCLUSION W O CEREBRAL IN 01/26/2017 Ot V13.02 PER RY HISTORY, URINARY (TRACT) INFECT 01/26/2017 Ot V45.82 PER CUTANEOUS TRANSLUM CORON ANGIOPLASTY 01/26/2017 Ot V58.63 MARIO G- TERM(CURRENT)USE OF ANTIPLATELET/AN 01/26/2017 Ot V58.67 MARIO G-TERM (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 01/26/2017 Ot V58.69 OTH MED,LT,CURRENT USE 01/26/2017 Ot 433.10 CAR OTID ARTERY OCCLUSION W O CEREBRAL IN 01/26/2017 Ot V72.63 PRE -PROCEDURAL LABORATORY EXAMINATION 01/26/2017 Ot V74.8 SCRE EN-BACTERIAL DIS NEC 01/26/2017 Ot V67.09 STEPHANIA YOSEF FOLLOW- UP, OTHER SURGERY 01/26/2017 Ot 793.82 INC ONCLUSIVE MAMMOGRAM 01/26/2017 Ot V76.12 OTH SCREEN MAMMO- MALIGN NEOPLASM OF [place] 01/26/2017 RIDINGS, NEY C WINE 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 Ot 719.07 JOINT EFFUSION-ANKLE 01/26/2017 RIDINGS, NEY C WINE 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 Ot 719.47 JOINT PAIN-ANKLE 01/26/2017 JOSEY RIDER DO Ot V76.12 OTH SCREEN MAMMO-MALIGN NEOPLASM OF [place] 01/26/2017 Ot V76.12 OTH SCREEN MAMMO- MALIGN NEOPLASM OF [place] 01/26/2017 KYMBERLY DPM, DAVID Q Ot 727. 1 BUNION 01/26/2017 KYMBERLY DPM, DAVID Q Ot V72. 83 EXAM PRE-OPERATIVE NEC 01/26/2017 ABRAN MARCUM FACC, JOAQUÍN HINOJOSAP CCDS Ot 272.4 HYPERLIPIDEMIA NEC/NOS 01/26/2017 ABRAN MARCUM FACC, JOAQUÍN FACP CCDS Ot 401.9 HYPERTENSION NOS 01/26/2017 ABRAN MARCUM FACC, JOAQUÍN FACP CCDS Ot 414.9 CHR ISCHEMIC HRT DIS NOS 01/26/2017 ABRAN MARCUM FACC, JOAQUÍN FACP CCDS Ot 433.10 CAROTID ARTERY OCCLUSION W O CEREBRAL IN 01/26/2017 ABRAN MARCUM FACC, JOAQUÍN FACP CCDS Ot 272.4 HYPERLIPIDEMIA NEC/NOS 01/26/2017 ABRAN MARCUM FACC, JOAQUÍN HINOJOSAP CCDS Ot 401.9 HYPERTENSION NOS 01/26/2017 ABRAN MARCUM FACC, JOAQUÍN HINOJOSAP CCDS Ot 414.9 CHR ISCHEMIC HRT DIS NOS 01/26/2017 ABRAN MARCUM FACC, JOAQUÍN HINOJOSAP CCDS Ot 433.10 CAROTID ARTERY OCCLUSION W O CEREBRAL IN 01/26/2017 KYMBERLY DPM, DAVID Q Ot M20.5X2 OTHER DEFORMITIES OF TOE(S) (ACQUIRED), 01/26/2017 KYMBERLY DPM, DAVID Q Ot Z01.818 ENCOUNTER FOR OTHER PREPROCEDURAL EXAMIN 01/26/2017 KYMBERLY DPM, DAVID Q Ot L97.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 01/26/2017 JOSEY RIDER DO Ot Z12.31 ENCNTR SCREEN MAMMOGRAM FOR MALIGNANT NE 01/26/2017 JOSEY RIDER DO Ot R92.8 OTH ABN AND INCONCLUSIVE FINDINGS ON DX 01/26/2017 ANAYELI DICKENS VOIP NETWORK ENGINEER Ot I65.23 OCCLUSION AND STENOSIS OF BILATERAL NG 01/26/2017 ANAYELI DICKENS VOIP NETWORK ENGINEER Ot Z53.9 PROCEDURE AND TREATMENT NOT CARRIED OUT, 01/26/2017 ANAYELI DICKENSP Ot E78.4 OTHER HYPERLIPIDEMIA 01/26/2017 ANAYELI DICKENS VOIP NETWORK ENGINEER Ot I65.23 OCCLUSION AND STENOSIS OF BILATERAL NG 01/26/2017 JOSEY RIDER DO Ot R92.8 OTH ABN AND INCONCLUSIVE FINDINGS ON DX 01/26/2017 ANAYELI DICKENS VOIP NETWORK ENGINEER Ot E78.4 OTHER HYPERLIPIDEMIA 01/26/2017 ANAYELI DICKENS VOIP NETWORK ENGINEER Ot I25.10 ATHSCL HEART DISEASE OF [place] CORONARY 01/26/2017 JOSEY RIDER DO Ot R15.9 FULL INCONTINENCE OF FECES 01/26/2017 JOSEY RIDER DO Ot R32 UNSPECIFIED URINARY INCONTINENCE 01/26/2017 JOSEY RIDER DO Ot R92.8 OTH ABN AND INCONCLUSIVE FINDINGS ON DX 01/26/2017 ANAYELI DICKENS VOIP NETWORK ENGINEER Ot E78.4 OTHER HYPERLIPIDEMIA 01/26/2017 ANAYELI DICKENS VOIP NETWORK ENGINEER Ot I 10 ESSENTIAL (PRIMARY) HYPERTENSION 01/26/2017 BAIANAYELI HURTADO Ot I25.10 ATHSCL HEART DISEASE OF [place] CORONARY 01/29/2017 JOSEY RIDER DO Ot R19.7 DIARRHEA, UNSPECIFIED 01/29/2017 PRAKASH MOJICA MD Ot S32.010A WEDGE COMPRESSION FRACTURE OF FIRST LUMB 01/29/2017 PRAKASH MOJICA MD Ot X58.XXXA EXPOSURE TO OTHER SPECIFIED FACTORS, INI 01/29/2017 PRAKASH MOJICA MD Ot Y99.8 OTHER EXTERNAL CAUSE STATUS 01/29/2017 PRAKASH MOJICA MD Ot Z01.8 18 ENCOUNTER FOR OTHER PREPROCEDURAL EXAMIN 01/29/2017 JOSEY RIDER DO Ot S32.010A WEDGE COMPRESSION FRACTURE OF FIRST LUMB 01/29/2017 JOSEY RIDER DO Ot W19.XXXA UNSPECIFIED FALL, INITIAL ENCOUNTER 01/29/2017 JOSEY RIDER DO Ot Y99.8 OTHER EXTERNAL CAUSE STATUS 02/01/2017 JOSEY RIDER DO Ot 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, NEC, LUMBAR REGION, 02/02/2017 Ot 250.00 JESSICA B JEFFY WO COMPL, TYPE II OR UNSPEC TY 02/02/2017 Ot 272.4 HYPE RLIPIDEMIA NEC/NOS 02/02/2017 Ot 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 02/02/2017 Ot 401.9 HYPE RTENSION NOS 02/02/2017 Ot 414.01 COR ONARY ATHEROSCLEROSIS OF [place] CORON 02/02/2017 Ot 433.10 CAR OTID ARTERY OCCLUSION W O CEREBRAL IN 02/02/2017 Ot V13.02 PER RY HISTORY, URINARY (TRACT) INFECT 02/02/2017 Ot V45.82 PER CUTANEOUS TRANSLUM CORON ANGIOPLASTY 02/02/2017 Ot V58.63 MARIO G- TERM(CURRENT)USE OF ANTIPLATELET/AN 02/02/2017 Ot V58.67 MARIO G-TERM (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 02/02/2017 Ot V58.69 OTH MED,LT,CURRENT USE 02/02/2017 Ot 433.10 CAR OTID ARTERY OCCLUSION W O CEREBRAL IN 02/02/2017 Ot V72.63 PRE -PROCEDURAL LABORATORY EXAMINATION 02/02/2017 Ot V74.8 SCRE EN-BACTERIAL DIS NEC 02/02/2017 Ot V67.09 STEPHANIA YOSEF FOLLOW- UP, OTHER SURGERY 02/02/2017 Ot 793.82 INC ONCLUSIVE MAMMOGRAM 02/02/2017 Ot V76.12 OTH SCREEN MAMMO- MALIGN NEOPLASM OF [place] 02/02/2017 NEY ASTUDILLO WINE 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 Ot 719.07 JOINT EFFUSION-ANKLE 02/02/2017 RIDNEY POLANCO WINE 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 Ot 719.47 JOINT PAIN-ANKLE 02/02/2017 JOSEY RIDER DO Ot V76.12 OTH SCREEN MAMMO-MALIGN NEOPLASM OF [place] 02/02/2017 Ot V76.12 OTH SCREEN MAMMO- MALIGN NEOPLASM OF [place] 02/02/2017 KYMBERLY DPM, DAVID Q Ot 727. 1 BUNION 02/02/2017 KYMBERLY DPM, DAVID Q Ot V72. 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), 02/02/2017 KYMBERLY DPM, DAVID Q Ot Z01.818 ENCOUNTER FOR OTHER PREPROCEDURAL EXAMIN 02/02/2017 KYMBERLY DPM, DAVID Q Ot L97.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 02/02/2017 JOSEY RIDER DO Ot Z12.31 ENCNTR SCREEN MAMMOGRAM FOR MALIGNANT NE 02/02/2017 JSOEY RIDER DO Ot R92.8 OTH ABN AND INCONCLUSIVE FINDINGS ON DX 02/02/2017 ANAYELI DICKENS VOIP NETWORK ENGINEER Ot I65.23 OCCLUSION AND STENOSIS OF BILATERAL NG 02/02/2017 ANAYELI DICKENS VOIP NETWORK ENGINEER Ot Z53.9 PROCEDURE AND TREATMENT NOT CARRIED OUT, 02/02/2017 ANAYELI DICKENS VOIP NETWORK ENGINEER Ot E78.4 OTHER HYPERLIPIDEMIA 02/02/2017 ANAYELI DICKENS VOIP NETWORK ENGINEER Ot I65.23 OCCLUSION AND STENOSIS OF BILATERAL [place] 02/02/2017 JOSEY RIDER DO Ot R92.8 OTH ABN AND INCONCLUSIVE FINDINGS ON DX 02/02/2017 ANAYELI DICKENS VOIP NETWORK ENGINEER Ot E78.4 OTHER HYPERLIPIDEMIA 02/02/2017 ANAYELI DICKENS VOIP NETWORK ENGINEER Ot I25.10 ATHSCL HEART DISEASE OF [place] CORONARY 02/02/2017 JOSEY RIDER DO Ot R15.9 FULL INCONTINENCE OF FECES 02/02/2017 JOSEY RIDER DO Ot R32 UNSPECIFIED URINARY INCONTINENCE 02/02/2017 JOSEY RIDER DO, Ot R92.8 OTH ABN AND INCONCLUSIVE FINDINGS ON DX 02/02/2017 ANAYELI DICKENS VOIP NETWORK ENGINEER Ot E78.4 OTHER HYPERLIPIDEMIA 02/02/2017 NICKANAYELI HURTADO VOIP NETWORK ENGINEER Ot I 10 ESSENTIAL (PRIMARY) HYPERTENSION 02/02/2017 CHRISSIEANAYELI VOIP NETWORK ENGINEER Ot I25.10 ATHSCL HEART DISEASE OF [place] CORONARY 02/02/2017 JOSEY RIDER DO Ot 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, NEC, LUMBAR REGION, 02/02/2017 JOSEY RIDER DO Ot S32.010A WEDGE COMPRESSION FRACTURE OF FIRST LUMB 02/02/2017 JOSEY RIDER DO Ot W19.XXXA UNSPECIFIED FALL, INITIAL ENCOUNTER 02/02/2017 JOSEY RIDER DO Ot Y99.8 OTHER EXTERNAL CAUSE STATUS 02/02/2017 CHRISSIEANNEANAYELI L VOIP NETWORK ENGINEER Ot E78.4 OTHER HYPERLIPIDEMIA 02/02/2017 GALINA MARCUM, PRAKASH Z Ot E11.9 TYPE 2 DIABETES MELLITUS WITHOUT COMPLIC 02/02/2017 GALINA MARCUM, PRAKASH Z Ot E78.4 OTHER HYPERLIPIDEMIA 02/02/2017 GALINA MARCUM, PRAKASH Z Ot F03.9 0 UNSPECIFIED DEMENTIA WITHOUT BEHAVIORAL 02/02/2017 GALINA MARCUM, PRAKASH Z Ot 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, CIGARETTES, UNCOMPL 02/02/2017 GALINA MARCUM PRAKASH Z Ot F41.9 ANXIETY DISORDER, UNSPECIFIED 02/02/2017 GALINA MARCUM PRAKASH Z Ot I10 ESSENTIAL (PRIMARY) HYPERTENSION 02/02/2017 GALINA MARCUM PRAKASH Z Ot I25.1 0 ATHSCL HEART DISEASE OF [place] CORONARY 02/02/2017 GALINA MARCUM PRAKASH Z Ot I65.2 3 OCCLUSION AND STENOSIS OF BILATERAL NG 02/02/2017 GALINA MARCUM PRAKASH Z Ot K21.9 GASTRO-ESOPHAGEAL REFLUX DISEASE WITHOUT 02/02/2017 GALINA MARCUM PRAKASH Z Ot S32.010A WEDGE COMPRESSION FRACTURE OF FIRST LUMB 02/02/2017 GALINA MARCUM PRAKASH Z Ot X58.XXXA EXPOSURE TO OTHER SPECIFIED FACTORS, INI 02/02/2017 GALINA MARCUM PRAKASH Z Ot Y99.8 OTHER EXTERNAL CAUSE STATUS 02/02/2017 GALINA MARCUM PARKASH Z Ot Z79.4 GROUP HOME (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 02/02/2017 GALINA MARCUM PRAKASH Z Ot Z79.8 99 OTHER GROUP HOME (CURRENT) DRUG THERAPY 02/02/2017 GALINA MARCUM PRAKASH Z Ot Z95.5 PRESENCE OF CORONARY ANGIOPLASTY IMPLANT 02/03/2017 JOSEY RIDER DO Ot S32.010A WEDGE COMPRESSION FRACTURE OF FIRST LUMB 02/03/2017 JOSEY RIDER DO Ot W19.XXXA UNSPECIFIED FALL, INITIAL ENCOUNTER 02/03/2017 JOSEY RIDER DO Ot Y99.8 OTHER EXTERNAL CAUSE STATUS 02/03/2017 ANAYELI DICKENS Ot E78.4 OTHER HYPERLIPIDEMIA 02/03/2017 ANAYELI DICKENS Ot I 10 ESSENTIAL (PRIMARY) HYPERTENSION 02/03/2017 ANAYELI DICKENS Ot I25.10 ATHSCL HEART DISEASE OF [place] CORONARY 02/03/2017 ANAYELI DICKENS Ot I65.23 OCCLUSION AND STENOSIS OF BILATERAL NG 02/04/2017 GALINA MARCUM PRAKASH Z Ot E11.9 TYPE 2 DIABETES MELLITUS WITHOUT COMPLIC 02/04/2017 GALINA MARCUM PRAKASH Z Ot F03.9 0 UNSPECIFIED DEMENTIA WITHOUT BEHAVIORAL 02/04/2017 GALINA MARCUM PRAKASH Z Ot 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, CIGARETTES, UNCOMPL 02/04/2017 GALINA MARCUM PRAKASH Z Ot F41.9 ANXIETY DISORDER, UNSPECIFIED 02/04/2017 GALINA MARCUM PRAKASH Z Ot I10 ESSENTIAL (PRIMARY) HYPERTENSION 02/04/2017 GALINA MARCUM PRAKASH Z Ot I25.1 0 ATHSCL HEART DISEASE OF [place] CORONARY 02/04/2017 GALINA MARCUM PRAKASH Z Ot K21.9 GASTRO-ESOPHAGEAL REFLUX DISEASE WITHOUT 02/04/2017 GALINA MARCUM PRAKASH Z Ot S32.010A WEDGE COMPRESSION FRACTURE OF FIRST LUMB 02/04/2017 GALINA MARCUM PRAKASH Z Ot X58.XXXA EXPOSURE TO OTHER SPECIFIED FACTORS, INI 02/04/2017 GALINA MARCUM PRAKASH Z Ot Y99.8 OTHER EXTERNAL CAUSE STATUS 02/04/2017 GALINA MARCUM PRAKASH Z Ot Z79.4 GROUP HOME (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 02/04/2017 GALINA MARCUM PRAKASH Z Ot Z79.8 99 OTHER GROUP HOME (CURRENT) DRUG THERAPY 02/04/2017 GALINA MARCUM PRAKASH Z Ot Z95.5 PRESENCE OF CORONARY ANGIOPLASTY IMPLANT 02/04/2017 CARMEN RAMIREZ DO Ot N39.0 URINARY TRACT INFECTION, SITE NOT SPECIF 02/05/2017 ANAYELI DICKENS VOIP NETWORK ENGINEER Ot E78.4 OTHER HYPERLIPIDEMIA 02/05/2017 ANAYELI DICKENS VOIP NETWORK ENGINEER Ot I 10 ESSENTIAL (PRIMARY) HYPERTENSION 02/05/2017 ANAYELI DICKENS VOIP NETWORK ENGINEER Ot I25.10 ATHSCL HEART DISEASE OF [place] CORONARY 02/05/2017 ANAYELI DICKENS VOIP NETWORK ENGINEER Ot I65.23 OCCLUSION AND STENOSIS OF BILATERAL NG 02/05/2017 JAMES BARRERA CARMEN Ot E11.9 TYPE 2 DIABETES MELLITUS WITHOUT COMPLIC 02/05/2017 YANELY RAMIREZ DOI Ot E78.00 PURE HYPERCHOLESTEROLEMIA, UNSPECIFIED 02/05/2017 YANELY RAMIREZ DOI Ot E87.1 HYPO-OSMOLALITY AND HYPONATREMIA 02/05/2017 YANELY RAMIREZ DOI Ot F03.90 UNSPECIFIED DEMENTIA WITHOUT BEHAVIORAL 02/05/2017 YANELY RAMIREZ DOI Ot F17.21 0 NICOTINE DEPENDENCE, CIGARETTES, UNCOMPL 02/05/2017 CARMEN RAMIREZ DO Ot F32.9 MAJOR DEPRESSIVE DISORDER, SINGLE EPISOD 02/05/2017 YANELY RAMIREZ DOI Ot F41.9 ANXIETY DISORDER, UNSPECIFIED 02/05/2017 CARMEN RAMIREZ DO Ot I25.10 ATHSCL HEART DISEASE OF [place] CORONARY 02/05/2017 YANELY RAMIREZ DOI Ot I25.2 OLD MYOCARDIAL INFARCTION 02/05/2017 CARMEN RAMIREZ DO Ot K21.9 GASTRO-ESOPHAGEAL REFLUX DISEASE WITHOUT 02/05/2017 CARMEN RAMIREZ DO Ot M19.91 PRIMARY OSTEOARTHRITIS, UNSPECIFIED SITE 02/05/2017 YANELY RAMIREZ DOI Ot M81.0 AGE-RELATED OSTEOPOROSIS W/O CURRENT PAT 02/05/2017 CARMEN RAMIREZ DO Ot N39.0 URINARY TRACT INFECTION, SITE NOT SPECIF 02/05/2017 CARMEN RAMIREZ DO Ot R11.0 NAUSEA 02/05/2017 CARMEN RAMIREZ DO Ot R41.0 DISORIENTATION, UNSPECIFIED 02/05/2017 CARMEN RAMIREZ DO Ot Z16.30 RESISTANCE TO UNSPECIFIED ANTIMICROBIAL 02/05/2017 CARMEN RAMIREZ DO Ot Z79.4 GROUP HOME (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 02/05/2017 CARMEN RAMIREZ DO Ot Z79.89 1 GROUP HOME (CURRENT) USE OF OPIATE ANALGE 02/05/2017 CARMEN RAMIREZ DO Ot Z86.73 PRSNL HX OF TIA (TIA), AND CEREB INFRC W 02/05/2017 CARMEN RAMIREZ DO Ot Z95.5 PRESENCE OF CORONARY ANGIOPLASTY IMPLANT 02/11/2017 GALINA MARCUM, PRAKASH Z Ot E11.9 TYPE 2 DIABETES MELLITUS WITHOUT COMPLIC 02/11/2017 GALINA MARCUM, PRAKASH Z Ot F03.9 0 UNSPECIFIED DEMENTIA WITHOUT BEHAVIORAL 02/11/2017 GALINA MARCUM, PRAKASH Z Ot 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, CIGARETTES, UNCOMPL 02/11/2017 GALINA MARCUM, PRAKASH Z Ot F41.9 ANXIETY DISORDER, UNSPECIFIED 02/11/2017 GALINA MARCUM, PRAKASH Z Ot I10 ESSENTIAL (PRIMARY) HYPERTENSION 02/11/2017 GALINA MARCUM, PRAKASH Z Ot I25.1 0 ATHSCL HEART DISEASE OF [place] CORONARY 02/11/2017 GALINA MARCUM, PRAKASH Z Ot K21.9 GASTRO-ESOPHAGEAL REFLUX DISEASE WITHOUT 02/11/2017 GALINA MARCUM PRAKASH Z Ot S32.010A WEDGE COMPRESSION FRACTURE OF FIRST LUMB 02/11/2017 GALINA MARCUM PRAKASH Z Ot X58.XXXA EXPOSURE TO OTHER SPECIFIED FACTORS, INI 02/11/2017 GALINA MARCUM PRAKASH Z Ot Y99.8 OTHER EXTERNAL CAUSE STATUS 02/11/2017 GALINA MARCUM PRAKASH Z Ot Z79.4 GROUP HOME (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 02/11/2017 GALINA MARCUM PRAKASH Z Ot Z79.8 99 OTHER GROUP HOME (CURRENT) DRUG THERAPY 02/11/2017 GALINA MARCUM PRAKASH Z Ot Z95.5 PRESENCE OF CORONARY ANGIOPLASTY IMPLANT 02/17/2017 JOSEY RIDER DO Ot N32.3 DIVERTICULUM OF BLADDER 02/17/2017 JOSEY RIDER DO Ot N32.89 OTHER SPECIFIED DISORDERS OF BLADDER 02/17/2017 GALINA MARCUM PRAKASH Z Ot E11.9 TYPE 2 DIABETES MELLITUS WITHOUT COMPLIC 02/17/2017 GALINA MARCUM PRAKASH Z Ot F03.9 0 UNSPECIFIED DEMENTIA WITHOUT BEHAVIORAL 02/17/2017 GALINA MARCUM PRAKASH Z Ot 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, CIGARETTES, UNCOMPL 02/17/2017 GALINA MARCUM PRAKASH Z Ot F41.9 ANXIETY DISORDER, UNSPECIFIED 02/17/2017 GALINA MARCUM PRAKASH Z Ot I10 ESSENTIAL (PRIMARY) HYPERTENSION 02/17/2017 GALINA MARCUM PRAKASH Z Ot I25.1 0 ATHSCL HEART DISEASE OF [place] CORONARY 02/17/2017 GALINA MARCUM PRAKASH Z Ot K21.9 GASTRO-ESOPHAGEAL REFLUX DISEASE WITHOUT 02/17/2017 GALINA MARCUM PRAKASH Z Ot S32.010A WEDGE COMPRESSION FRACTURE OF FIRST LUMB 02/17/2017 GALINA MARCUM PRAKASH Z Ot X58.XXXA EXPOSURE TO OTHER SPECIFIED FACTORS, INI 02/17/2017 KAMLESH MOJICA MDIQ Z Ot Y99.8 OTHER EXTERNAL CAUSE STATUS 02/17/2017 GALINA MARCUM PRAKASH Z Ot Z79.4 GROUP HOME (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 02/17/2017 GALINA MARCUM PRAKASH Z Ot Z79.8 99 OTHER GROUP HOME (CURRENT) DRUG THERAPY 02/17/2017 GALINA MARCUM PRAKASH Z Ot Z95.5 PRESENCE OF CORONARY ANGIOPLASTY IMPLANT 02/18/2017 JOSEY RIDER DO Ot 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, NEC, LUMBAR REGION, 02/18/2017 JOSEY RIDER DO Ot S32.010A WEDGE COMPRESSION FRACTURE OF FIRST LUMB 02/18/2017 JOSEY RIDER DO Ot W19.XXXA UNSPECIFIED FALL, INITIAL ENCOUNTER 02/18/2017 JOSEY RIDER DO Ot Y99.8 OTHER EXTERNAL CAUSE STATUS 02/23/2017 BAIGENESIS ANAYELI L VOIP NETWORK ENGINEER Ot E78.4 OTHER HYPERLIPIDEMIA 02/23/2017 BAIGENESIS ANAYELI L VOIP NETWORK ENGINEER Ot I 10 ESSENTIAL (PRIMARY) HYPERTENSION 02/23/2017 BAIANNE HURTADOHER L VOIP NETWORK ENGINEER Ot I25.10 ATHSCL HEART DISEASE OF [place] CORONARY 02/23/2017 BAIGENESIS ANAYELI L VOIP NETWORK ENGINEER Ot I65.23 OCCLUSION AND STENOSIS OF BILATERAL NG 02/25/2017 BAIGENESIS ANAYELI L VOIP NETWORK ENGINEER Ot E78.4 OTHER HYPERLIPIDEMIA 02/25/2017 BAIGENESIS ANAYELI L VOIP NETWORK ENGINEER Ot I 10 ESSENTIAL (PRIMARY) HYPERTENSION 02/25/2017 CHRISSIE ANAYELI L VOIP NETWORK ENGINEER Ot I25.10 ATHSCL HEART DISEASE OF [place] CORONARY 02/25/2017 BAIGENESIS ANAYELI L VOIP NETWORK ENGINEER Ot I34.0 NONRHEUMATIC MITRAL (VALVE) INSUFFICIENC 02/25/2017 BAIGENESIS ANAYELI L VOIP NETWORK ENGINEER Ot I35.8 OTHER NONRHEUMATIC AORTIC VALVE DISORDER 02/25/2017 ANNE DICKENSHER L VOIP NETWORK ENGINEER Ot 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 02/25/2017 ANAYELI DICKENSP Ot 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 03/01/2017 JOSEY RIDER DO Ot 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 9 TYPE 2 DIABETES MELLITUS WITHOUT COMPLIC 03/02/2017 LOYDA MCKEON MD Ot E78. 00 PURE HYPERCHOLESTEROLEMIA, UNSPECIFIED 03/02/2017 LOYDA MCKEON MD Ot F03. 90 UNSPECIFIED DEMENTIA WITHOUT BEHAVIORAL 03/02/2017 LOYDA MCKEON MD Ot F17.210 NICOTINE DEPENDENCE, CIGARETTES, UNCOMPL 03/02/2017 LOYDA MCKEON MD Ot I25. 10 ATHSCL HEART DISEASE OF [place] CORONARY 03/02/2017 LOYDA MCKEON MD, Ot I25. 2 OLD MYOCARDIAL INFARCTION 03/02/2017 LOYDA MCKEON MD Ot I95. 9 HYPOTENSION, UNSPECIFIED 03/02/2017 LOYDA MCKEON MD, Ot N39. 0 URINARY TRACT INFECTION, SITE NOT SPECIF 03/02/2017 LOYDA MCKEON MD Ot S00.03XA CONTUSION OF SCALP, INITIAL ENCOUNTER 03/02/2017 LOYDA MCKEON MD Ot S01.21XA LACERATION WITHOUT FOREIGN BODY OF NOSE, 03/02/2017 LOYDA MCKEON MD Ot W19.XXXA UNSPECIFIED FALL, INITIAL ENCOUNTER 03/02/2017 LOYDA MCKEON MD, Ot Z79. 4 GROUP HOME (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 03/02/2017 LOYDA MCKEON MD, Ot Z79. 82 COPY DIRECTOR (CURRENT) USE OF ASPIRIN 03/02/2017 LOYDA MCKEON MD, Ot Z86. 73 PRSNL HX OF TIA (TIA), AND CEREB INFRC W 03/02/2017 LOYDA MCKEON MD Ot Z90. 49 ACQUIRED ABSENCE OF OTHER SPECIFIED PART 03/02/2017 LOYDA MCKEON MD Ot Z90.710 ACQUIRED ABSENCE OF BOTH CERVIX AND UTER 03/02/2017 LOYDA MCKEON MD Ot Z95. 5 PRESENCE OF CORONARY ANGIOPLASTY IMPLANT 03/02/2017 JOSEY RIDER DO, Ot S32.010A WEDGE COMPRESSION FRACTURE OF FIRST LUMB 03/02/2017 JOSEY RIDER DO Ot W19.XXXA UNSPECIFIED FALL, INITIAL ENCOUNTER 03/02/2017 JOSEY RIDER DO Ot Y99.8 OTHER EXTERNAL CAUSE STATUS 03/03/2017 ANAYELI DICKENS Ot E78.4 OTHER HYPERLIPIDEMIA 03/03/2017 ANAYELI DICKENS Ot I 10 ESSENTIAL (PRIMARY) HYPERTENSION 03/03/2017 ANAYELI DICKENS Ot I25.10 ATHSCL HEART DISEASE OF [place] CORONARY 03/03/2017 ANAYELI DICKENS Ot I65.23 OCCLUSION AND STENOSIS OF BILATERAL NG 03/04/2017 JOSEY RIDER DO Ot S32.010D WEDGE COMPRSN FX FIRST LUM VERT, SUBS FO 03/04/2017 JOSEY RIDER DO, Ot Z09 ENCNTR FOR F/U EXAM AFT TRTMT FOR COND O 03/09/2017 JOSEY RIDER DO, Ot N32.3 DIVERTICULUM OF BLADDER 03/09/2017 JOSEY RIDER DO, Ot N32.89 OTHER SPECIFIED DISORDERS OF BLADDER 03/12/2017 JOSEY RIDER DO Ot S32.000S WEDGE COMPRESSION FRACTURE OF UNSP LUMBA 03/18/2017 ANAYELI DICKENSP Ot E78.4 OTHER HYPERLIPIDEMIA 03/18/2017 ANAYELI DICKENS VOIP NETWORK ENGINEER Ot I 10 ESSENTIAL (PRIMARY) HYPERTENSION 03/18/2017 ANAYELI DICKENSP Ot I25.10 ATHSCL HEART DISEASE OF [place] CORONARY 03/18/2017 ANAYELI DICKENSP Ot I34.0 NONRHEUMATIC MITRAL (VALVE) INSUFFICIENC 03/18/2017 ANAYELI DICKENSP Ot I35.8 OTHER NONRHEUMATIC AORTIC VALVE DISORDER 03/18/2017 ANAYELI DICKENSP Ot 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 03/18/2017 ANAYELI DICKENSP Ot 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 03/19/2017 JOSEY RIDER DO, Ot N32.3 DIVERTICULUM OF BLADDER 03/19/2017 JOSEY RIDER DO, Ot N32.89 OTHER SPECIFIED DISORDERS OF BLADDER 03/31/2017 Ot 250.00 JESSICA B JEFFY WO COMPL, TYPE II OR UNSPEC TY 03/31/2017 Ot 272.4 HYPE RLIPIDEMIA NEC/NOS 03/31/2017 Ot 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 03/31/2017 Ot 401.9 HYPE RTENSION NOS 03/31/2017 Ot 414.01 COR ONARY ATHEROSCLEROSIS OF [place] CORON 03/31/2017 Ot 433.10 CAR OTID ARTERY OCCLUSION W O CEREBRAL IN 03/31/2017 Ot V13.02 PER RY HISTORY, URINARY (TRACT) INFECT 03/31/2017 Ot V45.82 PER CUTANEOUS TRANSLUM CORON ANGIOPLASTY 03/31/2017 Ot V58.63 MARIO G- TERM(CURRENT)USE OF ANTIPLATELET/AN 03/31/2017 Ot V58.67 MARIO G-TERM (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 03/31/2017 Ot V58.69 OTH MED,LT,CURRENT USE 03/31/2017 Ot 433.10 CAR OTID ARTERY OCCLUSION W O CEREBRAL IN 03/31/2017 Ot V72.63 PRE -PROCEDURAL LABORATORY EXAMINATION 03/31/2017 Ot V74.8 SCRE EN-BACTERIAL DIS NEC 03/31/2017 Ot V67.09 STEPHANIA YOSEF FOLLOW- UP, OTHER SURGERY 03/31/2017 Ot 793.82 INC ONCLUSIVE MAMMOGRAM 03/31/2017 Ot V76.12 OTH SCREEN MAMMO- MALIGN NEOPLASM OF [place] 03/31/2017 RIDINGS, NEY C WINE 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 Ot 719.07 JOINT EFFUSION-ANKLE 03/31/2017 RIDINGS, NEY C WINE 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 Ot 719.47 JOINT PAIN-ANKLE 03/31/2017 JOSEY RIDER DO Ot V76.12 OTH SCREEN MAMMO-MALIGN NEOPLASM OF [place] 03/31/2017 Ot V76.12 OTH SCREEN MAMMO- MALIGN NEOPLASM OF [place] 03/31/2017 KYMBERLY DPIndigo DAVID Q Ot 727. 1 BUNION 03/31/2017 KYMBERLY DPIndigo DAVID Q Ot V72. 83 EXAM PRE-OPERATIVE NEC 03/31/2017 ABRAN MACRUM FACC, JOAQUÍN FACP CCDS Ot 272.4 HYPERLIPIDEMIA NEC/NOS 03/31/2017 ABRAN MARCUM FACC, ALI FACP CCDS Ot 401.9 HYPERTENSION NOS 03/31/2017 ABRAN MARCUM FACC, ALI FACP CCDS Ot 414.9 CHR ISCHEMIC HRT DIS NOS 03/31/2017 ABRAN MARCUM FACC, ALI FACP CCDS Ot 433.10 CAROTID ARTERY OCCLUSION W O CEREBRAL IN 03/31/2017 ABRAN MARCUM FACC, ALI FACP CCDS Ot 272.4 HYPERLIPIDEMIA NEC/NOS 03/31/2017 ABRAN MARCUM FACC, ALI FACP CCDS Ot 401.9 HYPERTENSION NOS 03/31/2017 ABRAN MARCUM FACLai, ALI FACP CCDS Ot 414.9 CHR ISCHEMIC HRT DIS NOS 03/31/2017 ABRAN MARCUM FACC, ALI FACP CCDS Ot 433.10 CAROTID ARTERY OCCLUSION W O CEREBRAL IN 03/31/2017 KYMBERLY DPM, DAVID Q Ot M20.5X2 OTHER DEFORMITIES OF TOE(S) (ACQUIRED), 03/31/2017 KYMBERLY DPM DAVID Q Ot Z01.818 ENCOUNTER FOR OTHER PREPROCEDURAL EXAMIN 03/31/2017 KYMBERLY DPM, DAVID Q Ot L97.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 03/31/2017 JOSEY RIDER DO Ot Z12.31 ENCNTR SCREEN MAMMOGRAM FOR MALIGNANT NE 03/31/2017 JOSEY RIDER DO Ot R92.8 OTH ABN AND INCONCLUSIVE FINDINGS ON DX 03/31/2017 ANAYELI DICKENS Ot I65.23 OCCLUSION AND STENOSIS OF BILATERAL NG 03/31/2017 ANAYELI DICKENS Ot Z53.9 PROCEDURE AND TREATMENT NOT CARRIED OUT, 03/31/2017 ANAYELI DICKENS Ot E78.4 OTHER HYPERLIPIDEMIA 03/31/2017 ANAYELI DICKENS Ot I65.23 OCCLUSION AND STENOSIS OF BILATERAL NG 03/31/2017 JOSEY RIDER DO Ot R92.8 OTH ABN AND INCONCLUSIVE FINDINGS ON DX 03/31/2017 ANAYELI DICKENS Ot E78.4 OTHER HYPERLIPIDEMIA 03/31/2017 ANAYELI DICKENS Ot I25.10 ATHSCL HEART DISEASE OF [place] CORONARY 03/31/2017 JOSEY RIDER DO Ot R15.9 FULL INCONTINENCE OF FECES 03/31/2017 JOSEY RIDER DO Ot R32 UNSPECIFIED URINARY INCONTINENCE 03/31/2017 JOSEY RIDER DO Ot R92.8 OTH ABN AND INCONCLUSIVE FINDINGS ON DX 03/31/2017 ANAYELI DICKENS Ot E78.4 OTHER HYPERLIPIDEMIA 03/31/2017 ANAYELI DICKENS Ot I 10 ESSENTIAL (PRIMARY) HYPERTENSION 03/31/2017 ANAYELI DICKENS Ot I25.10 ATHSCL HEART DISEASE OF [place] CORONARY 03/31/2017 JOSEY RIDER DO Ot 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, NEC, LUMBAR REGION, 03/31/2017 JOSEY RIDER DO Ot S32.010A WEDGE COMPRESSION FRACTURE OF FIRST LUMB 03/31/2017 JOSEY RIDER DO Ot W19.XXXA UNSPECIFIED FALL, INITIAL ENCOUNTER 03/31/2017 JOSEY RIDER DO Ot Y99.8 OTHER EXTERNAL CAUSE STATUS 03/31/2017 ANAYELI DICKENS Ot E78.4 OTHER HYPERLIPIDEMIA 03/31/2017 BAIMA, ANAYELI L VOIP NETWORK ENGINEER Ot I 10 ESSENTIAL (PRIMARY) HYPERTENSION 03/31/2017 ANAYELI DICKENS VOIP NETWORK ENGINEER Ot I25.10 ATHSCL HEART DISEASE OF [place] CORONARY 03/31/2017 ANAYELI DICKENS VOIP NETWORK ENGINEER Ot I65.23 OCCLUSION AND STENOSIS OF BILATERAL NG 03/31/2017 JOSEY RIDER DO Ot N32.3 DIVERTICULUM OF BLADDER 03/31/2017 JOSEY RIDER DO Ot N32.89 OTHER SPECIFIED DISORDERS OF BLADDER 03/31/2017 JOSEY RIDER DO Ot S32.010D WEDGE COMPRSN FX FIRST LUM VERT, SUBS FO 03/31/2017 JOSEY RIDER DO Ot Z09 ENCNTR FOR F/U EXAM AFT TRTMT FOR COND O 03/31/2017 ANAYELI DICKENS VOIP NETWORK ENGINEER Ot E78.4 OTHER HYPERLIPIDEMIA 03/31/2017 ANAYELI DICKENS VOIP NETWORK ENGINEER Ot I 10 ESSENTIAL (PRIMARY) HYPERTENSION 03/31/2017 ANAYELI DICKENS VOIP NETWORK ENGINEER Ot I25.10 ATHSCL HEART DISEASE OF [place] CORONARY 03/31/2017 ANAYELI DICKENS L VOIP NETWORK ENGINEER Ot I34.0 NONRHEUMATIC MITRAL (VALVE) INSUFFICIENC 03/31/2017 ANAYELI DICKENS L VOIP NETWORK ENGINEER Ot I35.8 OTHER NONRHEUMATIC AORTIC VALVE DISORDER 03/31/2017 ANAYELI DICKENS L VOIP NETWORK ENGINEER Ot 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 03/31/2017 ANAYELI DICKENS L VOIP NETWORK ENGINEER Ot 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 03/31/2017 ANAYELI DICKENS VOIP NETWORK ENGINEER Ot E34.0 CARCINOID SYNDROME 03/31/2017 ANAYELI DICKENS L VOIP NETWORK ENGINEER Ot E78.4 OTHER HYPERLIPIDEMIA 03/31/2017 ANAYELI DICKENS L VOIP NETWORK ENGINEER Ot I 10 ESSENTIAL (PRIMARY) HYPERTENSION 03/31/2017 ANAYELI DICKENS L VOIP NETWORK ENGINEER Ot I25.10 ATHSCL HEART DISEASE OF [place] CORONARY 03/31/2017 ANAYELI DICKENS L VOIP NETWORK ENGINEER Ot I34.0 NONRHEUMATIC MITRAL (VALVE) INSUFFICIENC 03/31/2017 ANAYELI DICKENS L VOIP NETWORK ENGINEER Ot I35.8 OTHER NONRHEUMATIC AORTIC VALVE DISORDER 03/31/2017 ANAYELI DICKENS L VOIP NETWORK ENGINEER Ot I65.23 OCCLUSION AND STENOSIS OF BILATERAL NG 03/31/2017 ANAYELI DICKENS VOIP NETWORK ENGINEER Ot E78.4 OTHER HYPERLIPIDEMIA 03/31/2017 ANAYELI DICKENS VOIP NETWORK ENGINEER Ot I 10 ESSENTIAL (PRIMARY) HYPERTENSION 03/31/2017 ANAYELI DICKENS VOIP NETWORK ENGINEER Ot I25.10 ATHSCL HEART DISEASE OF [place] CORONARY 03/31/2017 ANAYELI DICKENS VOIP NETWORK ENGINEER Ot I34.0 NONRHEUMATIC MITRAL (VALVE) INSUFFICIENC 03/31/2017 ANAYELI DICKENS VOIP NETWORK ENGINEER Ot I35.8 OTHER NONRHEUMATIC AORTIC VALVE DISORDER 03/31/2017 ANAYELI DICKENS VOIP NETWORK ENGINEER Ot I65.23 OCCLUSION AND STENOSIS OF BILATERAL NG 03/31/2017 JOSEY RIDER DO Ot M81.0 AGE-RELATED OSTEOPOROSIS W/O CURRENT PAT 03/31/2017 JOSEY RIDER DO Ot S32.010S WEDGE COMPRESSION FRACTURE OF FIRST LUMB 03/31/2017 JOSEY RIDER DO Ot X58.XXXS EXPOSURE TO OTHER SPECIFIED FACTORS, SEQ 03/31/2017 JOSEY RIDER DO Ot Y99.8 OTHER EXTERNAL CAUSE STATUS 04/02/2017 GALINA MARCUM PRAKASH Z Ot E11.9 TYPE 2 DIABETES MELLITUS WITHOUT COMPLIC 04/02/2017 GALINA MARCUM PRAKASH Z Ot F03.9 0 UNSPECIFIED DEMENTIA WITHOUT BEHAVIORAL 04/02/2017 GALINA MARCUM PRAKASH Z Ot 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, CIGARETTES, UNCOMPL 04/02/2017 GALINA MARCUM RPAKASH Z Ot F41.9 ANXIETY DISORDER, UNSPECIFIED 04/02/2017 GALINA MARCUM PRAKASH Z Ot I10 ESSENTIAL (PRIMARY) HYPERTENSION 04/02/2017 GALINA MARCUM PRAKASH Z Ot I25.1 0 ATHSCL HEART DISEASE OF [place] CORONARY 04/02/2017 GALINA MARCUM PRAKASH Z Ot K21.9 GASTRO-ESOPHAGEAL REFLUX DISEASE WITHOUT 04/02/2017 GALINA MARCUM PRAKASH Z Ot S32.010A WEDGE COMPRESSION FRACTURE OF FIRST LUMB 04/02/2017 GALINA MARCUM PRAKASH Z Ot X58.XXXA EXPOSURE TO OTHER SPECIFIED FACTORS, INI 04/02/2017 GALINA MARCUM PRAKASH Z Ot Y99.8 OTHER EXTERNAL CAUSE STATUS 04/02/2017 PRAKASH MOJICA MD Ot Z79.4 GROUP HOME (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 04/02/2017 PRAKASH MOJICA MD Ot Z79.8 99 OTHER COPY DIRECTOR (CURRENT) DRUG THERAPY 04/02/2017 PRAKASH MOJICA MD Ot Z95.5 PRESENCE OF CORONARY ANGIOPLASTY IMPLANT 04/02/2017 JOSEY RIDER DO, Ot S32.010D WEDGE COMPRSN FX FIRST LUM VERT, SUBS FO 04/02/2017 JOSEY RIDER DO, Ot Z09 ENCNTR FOR F/U EXAM AFT TRTMT FOR COND O 04/05/2017 JOSEY RIDER DO Ot M81.0 AGE-RELATED OSTEOPOROSIS W/O CURRENT PAT 04/06/2017 ANAYELI DICKENS L VOIP NETWORK ENGINEER Ot E78.4 OTHER HYPERLIPIDEMIA 04/06/2017 CHRISSIE ANAYELI L VOIP NETWORK ENGINEER Ot I 10 ESSENTIAL (PRIMARY) HYPERTENSION 04/06/2017 CHRISSIE ANAYELI L VOIP NETWORK ENGINEER Ot I25.10 ATHSCL HEART DISEASE OF [place] CORONARY 04/06/2017 BAIMA ANAYELI L VOIP NETWORK ENGINEER Ot I34.0 NONRHEUMATIC MITRAL (VALVE) INSUFFICIENC 04/06/2017 BAIMA, ANAYELI L VOIP NETWORK ENGINEER Ot I35.8 OTHER NONRHEUMATIC AORTIC VALVE DISORDER 04/06/2017 CHRISSIE ANAYELI L VOIP NETWORK ENGINEER Ot 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 04/06/2017 CHRISSIE ANAYELI L VOIP NETWORK ENGINEER Ot 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 04/06/2017 JOSEY RIDER DO Ot S32.010D WEDGE COMPRSN FX FIRST LUM VERT, SUBS FO 04/06/2017 JOSEY RIDER DO, Ot Z09 ENCNTR FOR F/U EXAM AFT TRTMT FOR COND O 04/07/2017 BAIGENESIS ANAYELI L VOIP NETWORK ENGINEER Ot E78.4 OTHER HYPERLIPIDEMIA 04/07/2017 BAIMA ANAYELI L VOIP NETWORK ENGINEER Ot I 10 ESSENTIAL (PRIMARY) HYPERTENSION 04/07/2017 BAIMA ANAYELI L VOIP NETWORK ENGINEER Ot I25.10 ATHSCL HEART DISEASE OF [place] CORONARY 04/07/2017 BAIMA ANAYELI L VOIP NETWORK ENGINEER Ot I34.0 NONRHEUMATIC MITRAL (VALVE) INSUFFICIENC 04/07/2017 NICKMA ANAYELI L VOIP NETWORK ENGINEER Ot I35.8 OTHER NONRHEUMATIC AORTIC VALVE DISORDER 04/07/2017 ANAYELI DICKENS Ot I65.23 OCCLUSION AND STENOSIS OF BILATERAL NG 04/07/2017 JOSEY RIDER DO, Ot M81.0 AGE-RELATED OSTEOPOROSIS W/O CURRENT PAT 04/07/2017 JOSEY RIDER DO, Ot M81.0 AGE-RELATED OSTEOPOROSIS W/O CURRENT PAT 04/07/2017 JOSEY RIDER DO, Ot M81.0 AGE-RELATED OSTEOPOROSIS W/O CURRENT PAT 04/09/2017 URI LEIVA MD Ot I65.2 3 OCCLUSION AND STENOSIS OF BILATERAL NG 04/09/2017 URI LEIVA MD Ot N39.0 URINARY TRACT INFECTION, SITE NOT SPECIF 04/09/2017 URI LEIVA MD Ot Z01.8 18 ENCOUNTER FOR OTHER PREPROCEDURAL EXAMIN 04/09/2017 JOSEY RIDER DO, Ot M81.0 AGE-RELATED OSTEOPOROSIS W/O CURRENT PAT 04/09/2017 JOSEY RIDER DO, Ot S32.010S WEDGE COMPRESSION FRACTURE OF FIRST LUMB 04/09/2017 JOSEY RIDER DO, Ot X58.XXXS EXPOSURE TO OTHER SPECIFIED FACTORS, SEQ 04/09/2017 JOSEY RIDER DO, Ot Y99.8 OTHER EXTERNAL CAUSE STATUS 04/15/2017 JOSEY RIDER DO, Ot S32.010D WEDGE COMPRSN FX FIRST LUM VERT, SUBS FO 04/15/2017 JOSEY RIDRE DO, Ot Z09 ENCNTR FOR F/U EXAM AFT TRTMT FOR COND O 04/19/2017 ANAYELI DICKENS Ot E78.4 OTHER HYPERLIPIDEMIA 04/19/2017 ANAYELI DICKENSP Ot I 10 ESSENTIAL (PRIMARY) HYPERTENSION 04/19/2017 ANAYELI DICKENS Ot I25.10 ATHSCL HEART DISEASE OF [place] CORONARY 04/19/2017 ANAYELI DICKENS Ot I34.0 NONRHEUMATIC MITRAL (VALVE) INSUFFICIENC 04/19/2017 ANAYELI DICKENS Ot I35.8 OTHER NONRHEUMATIC AORTIC VALVE DISORDER 04/19/2017 NAAYELI DICKENS Ot I65.23 OCCLUSION AND STENOSIS OF BILATERAL NG 04/19/2017 RIDER DO, JOSEY J Ot M81.0 AGE-RELATED OSTEOPOROSIS W/O CURRENT PAT 04/19/2017 JOSEY RIDER DO, Ot S32.010S WEDGE COMPRESSION FRACTURE OF FIRST LUMB 04/19/2017 JOSEY RIDER DO Ot X58.XXXS EXPOSURE TO OTHER SPECIFIED FACTORS, SEQ 04/19/2017 JOSEY RIDER DO Ot Y99.8 OTHER EXTERNAL CAUSE STATUS 04/22/2017 URI LEIVA MD Ot R82.9 9 OTHER ABNORMAL FINDINGS IN URINE 04/22/2017 URI LEIVA MD Ot Z01.8 12 ENCOUNTER FOR PREPROCEDURAL LABORATORY E 04/28/2017 JOSEY RIDER DO, Ot M81.0 AGE-RELATED OSTEOPOROSIS W/O CURRENT PAT 05/04/2017 URI LEIVA MD Ot I65.2 3 OCCLUSION AND STENOSIS OF BILATERAL [place] 05/04/2017 URI LEIVA MD Ot N39.0 URINARY TRACT INFECTION, SITE NOT SPECIF 05/04/2017 URI LEIVA MD, Ot Z01.8 18 ENCOUNTER FOR OTHER PREPROCEDURAL EXAMIN 05/04/2017 JOSEY RIDER DO Ot S32.010D WEDGE COMPRSN FX FIRST LUM VERT, SUBS FO 05/04/2017 JOSEY RIDER DO Ot Z09 ENCNTR FOR F/U EXAM AFT TRTMT FOR COND O 05/11/2017 URI LEIVA MD Ot I65.2 3 OCCLUSION AND STENOSIS OF BILATERAL NG 05/11/2017 URI LEIVA MD Ot N39.0 URINARY TRACT INFECTION, SITE NOT SPECIF 05/11/2017 URI LEIVA MD Ot Z01.8 18 ENCOUNTER FOR OTHER PREPROCEDURAL EXAMIN 05/12/2017 URI LEIVA MD Ot R82.9 9 OTHER ABNORMAL FINDINGS IN URINE 05/12/2017 URI LEIVA MD Ot Z01.8 12 ENCOUNTER FOR PREPROCEDURAL LABORATORY E 05/13/2017 PRAKASH MOJICA MD Ot E11.9 TYPE 2 DIABETES MELLITUS WITHOUT COMPLIC 05/13/2017 PRAKASH MOJICA MD Ot E78.4 OTHER HYPERLIPIDEMIA 05/13/2017 PRAKASH MOJICA MD Ot F03.9 0 UNSPECIFIED DEMENTIA WITHOUT BEHAVIORAL 05/13/2017 SUWAN MD, PRAKASH Z Ot 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, CIGARETTES, UNCOMPL 05/13/2017 GALINA MARCUM PRAKASH Z Ot F41.9 ANXIETY DISORDER, UNSPECIFIED 05/13/2017 GALINA MARCUM PRAKASH Z Ot I10 ESSENTIAL (PRIMARY) HYPERTENSION 05/13/2017 GALINA MARCUM PRAKASH Z Ot I25.1 0 ATHSCL HEART DISEASE OF [place] CORONARY 05/13/2017 GALINA MARCUM PRAKASH Z Ot I65.2 3 OCCLUSION AND STENOSIS OF BILATERAL NG 05/13/2017 GALINA MARCUM PRAKASH Z Ot K21.9 GASTRO-ESOPHAGEAL REFLUX DISEASE WITHOUT 05/13/2017 GALINA MARCUM PRAKASH Z Ot S32.010A WEDGE COMPRESSION FRACTURE OF FIRST LUMB 05/13/2017 GALINA MARCUM PRAKASH Z Ot X58.XXXA EXPOSURE TO OTHER SPECIFIED FACTORS, INI 05/13/2017 GALINA MARCUM PRAKASH Z Ot Y99.8 OTHER EXTERNAL CAUSE STATUS 05/13/2017 GALINA MARCUM PRAKASH Z Ot Z79.4 GROUP HOME (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 05/13/2017 GALINA MARCUM PRAKASH Z Ot Z79.8 99 OTHER COPY DIRECTOR (CURRENT) DRUG THERAPY 05/13/2017 GALINA MARCUM PRAKASH Z Ot Z95.5 PRESENCE OF CORONARY ANGIOPLASTY IMPLANT 05/17/2017 JOSEY RIDER DO Ot M81.0 AGE-RELATED OSTEOPOROSIS W/O CURRENT PAT 05/21/2017 URI LEIVA MD Ot R82.9 9 OTHER ABNORMAL FINDINGS IN URINE 05/21/2017 URI LEIVA MD Ot Z01.8 12 ENCOUNTER FOR PREPROCEDURAL LABORATORY E 06/01/2017 JOSEY [...] TRTMT FOR COND O 06/17/2017 JOSEY RIDER DO, Ot S32.010D WEDGE COMPRSN FX FIRST LUM VERT, SUBS FO 06/17/2017 JOSEY RIDER DO Ot Z09 ENCNTR FOR F/U EXAM AFT TRTMT FOR COND O 06/18/2017 JOSEY RIDER DO, Ot S32.010D WEDGE COMPRSN FX FIRST LUM VERT, SUBS FO 06/18/2017 JOSEY RIDER DO Ot Z09 ENCNTR FOR F/U EXAM AFT TRTMT FOR COND O 06/25/2017 JOSEY RIDER DO, Ot S32.010D WEDGE COMPRSN FX FIRST LUM VERT, SUBS FO 06/25/2017 JOSEY RIDER DO Ot Z09 ENCNTR FOR F/U EXAM AFT TRTMT FOR COND O 07/01/2017 JOSEY RIDER DO, Ot S32.010D WEDGE COMPRSN FX FIRST LUM VERT, SUBS FO 07/01/2017 JOSEY RIDER DO Ot Z09 ENCNTR FOR F/U EXAM AFT TRTMT FOR COND O 07/07/2017 JOSEY RIDER DO, Ot S32.010D WEDGE COMPRSN FX FIRST LUM VERT, SUBS FO 07/07/2017 JOSEY RIDER DO Ot Z09 ENCNTR FOR F/U EXAM AFT TRTMT FOR COND O 07/15/2017 JOSEY RIDER DO, Ot S32.010D WEDGE COMPRSN FX FIRST LUM VERT, SUBS FO 07/15/2017 JOSEY RIDER DO Ot Z09 ENCNTR FOR F/U EXAM AFT TRTMT FOR COND O 08/04/2017 JOSEY RIDER DO, Ot S32.010D WEDGE COMPRSN FX FIRST LUM VERT, SUBS FO 08/04/2017 JOSEY RIDER DO Ot Z09 ENCNTR FOR F/U EXAM AFT TRTMT FOR COND O 08/26/2017 JOSEY RIDER DO Ot M79.89 OTHER SPECIFIED SOFT TISSUE DISORDERS 08/26/2017 JOSEY RIDER DO, Ot Z53.8 PROCEDURE AND TREATMENT NOT CARRIED OUT 09/01/2017 JOSEY RIDER DO Ot M79.89 OTHER SPECIFIED SOFT TISSUE DISORDERS 09/01/2017 JOSEY RIDER DO, Ot Z53.8 PROCEDURE AND TREATMENT NOT CARRIED OUT 03/22/2018 NEY ASTUDILLO WINE 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 Ot 719.07 JOINT EFFUSION-ANKLE 03/22/2018 RIDNEY POLANCO WINE 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 Ot 719.47 JOINT PAIN-ANKLE 03/22/2018 JOSEY RIDER DO Ot V76.12 OTH SCREEN MAMMO-MALIGN NEOPLASM OF [place] 03/22/2018 Ot V76.12 OTH SCREEN MAMMO- MALIGN NEOPLASM OF [place] 03/22/2018 KYMBERLY DPIndigo DAVID Q Ot 727. 1 BUNION 03/22/2018 KYMBERLY DPIndigo, DAVID Q Ot V72. 83 EXAM PRE-OPERATIVE NEC 03/22/2018 ABRAN MARCUM FACLai, ALI FACP CCDS Ot [...] CCDS Ot 401.9 HYPERTENSION NOS 03/22/2018 ABRAN HINOJOSAC, ALI FACP CCDS Ot 414.9 CHR ISCHEMIC HRT DIS NOS 03/22/2018 ABRAN MARCUM FACC, ALI FACP CCDS Ot 433.10 CAROTID ARTERY OCCLUSION W O CEREBRAL IN 03/22/2018 KYMBERLY DPIndigo, DAVID Q Ot M20.5X2 OTHER DEFORMITIES OF TOE(S) (ACQUIRED), 03/22/2018 KYMBERLY DPM, DAVID Q Ot Z01.818 ENCOUNTER FOR OTHER PREPROCEDURAL EXAMIN 03/22/2018 KYMBERLY DPIndigo DAVID Q Ot L97.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 03/22/2018 JOSEY RIDER DO Ot Z12.31 ENCNTR SCREEN MAMMOGRAM FOR MALIGNANT NE 03/22/2018 JOSEY RIDER DO Ot R92.8 OTH ABN AND INCONCLUSIVE FINDINGS ON DX 03/22/2018 NICKANAYELI HURTADO Hilton VOIP NETWORK ENGINEER Ot I65.23 OCCLUSION AND STENOSIS OF BILATERAL NG 03/22/2018 NICKANAYELI HURTADO Hilton VOIP NETWORK ENGINEER Ot Z53.9 PROCEDURE AND TREATMENT NOT CARRIED OUT, 03/22/2018 ANAYELI DICKENS VOIP NETWORK ENGINEER Ot E78.4 OTHER HYPERLIPIDEMIA 03/22/2018 CHRISSIE ANAYELI [place] VOIP NETWORK ENGINEER Ot I65.23 OCCLUSION AND STENOSIS OF BILATERAL NG 03/22/2018 JOSEY RIDER DO Ot R92.8 OTH ABN AND INCONCLUSIVE FINDINGS ON DX 03/22/2018 ANAYELI DICKENS VOIP NETWORK ENGINEER Ot E78.4 OTHER HYPERLIPIDEMIA 03/22/2018 ANAYELI DICKENS L VOIP NETWORK ENGINEER Ot I25.10 ATHSCL HEART DISEASE OF [place] CORONARY 03/22/2018 JOSEY RIDER DO Ot R15.9 FULL INCONTINENCE OF FECES 03/22/2018 JOSEY RIDER DO Ot R32 UNSPECIFIED URINARY INCONTINENCE 03/22/2018 JOSEY RIDER DO, Ot R92.8 OTH ABN AND INCONCLUSIVE FINDINGS ON DX 03/22/2018 ANAYELI DICKENSP Ot E78.4 OTHER HYPERLIPIDEMIA 03/22/2018 ANAYELI DICKENS VOIP NETWORK ENGINEER Ot I 10 ESSENTIAL (PRIMARY) HYPERTENSION 03/22/2018 ANAYELI DICKENS VOIP NETWORK ENGINEER Ot I25.10 ATHSCL HEART DISEASE OF [place] CORONARY 03/22/2018 JOSEY RIDER DO Ot 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, NEC, LUMBAR REGION, 03/22/2018 JOSEY RIDER DO Ot S32.010A WEDGE COMPRESSION FRACTURE OF FIRST LUMB 03/22/2018 JOSEY RIDER DO Ot W19.XXXA UNSPECIFIED FALL, INITIAL ENCOUNTER 03/22/2018 JOSEY RIDER DO Ot Y99.8 OTHER EXTERNAL CAUSE STATUS 03/22/2018 ANAYELI DICKENS VOIP NETWORK ENGINEER Ot E78.4 OTHER HYPERLIPIDEMIA 03/22/2018 ANAYELI DICKENS L VOIP NETWORK ENGINEER Ot I 10 ESSENTIAL (PRIMARY) HYPERTENSION 03/22/2018 ANAYELI DICKENS L VOIP NETWORK ENGINEER Ot I25.10 ATHSCL HEART DISEASE OF [place] CORONARY 03/22/2018 BAIMA, ANAYELI L VOIP NETWORK ENGINEER Ot I65.23 OCCLUSION AND STENOSIS OF BILATERAL NG 03/22/2018 JOSEY RIDER DO Ot N32.3 DIVERTICULUM OF BLADDER 03/22/2018 JOSEY RIDER DO Ot N32.89 OTHER SPECIFIED DISORDERS OF BLAD[place] 03/22/2018 NICKGENESIS ANAYELI L VOIP NETWORK ENGINEER Ot E78.4 OTHER HYPERLIPIDEMIA 03/22/2018 BAIMA, ANAYELI L VOIP NETWORK ENGINEER Ot I 10 ESSENTIAL (PRIMARY) HYPERTENSION 03/22/2018 BAIMA, ANAYELI L VOIP NETWORK ENGINEER Ot I25.10 ATHSCL HEART DISEASE OF [place] CORONARY 03/22/2018 BAIMA, ANAYELI L VOIP NETWORK ENGINEER Ot I34.0 NONRHEUMATIC MITRAL (VALVE) INSUFFICIENC 03/22/2018 BAIMA, ANAYELI L VOIP NETWORK ENGINEER Ot I35.8 OTHER NONRHEUMATIC AORTIC VALVE DISORDER 03/22/2018 BAIMA, ANAYELI L VOIP NETWORK ENGINEER Ot 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 03/22/2018 BAIMA, ANAYELI L VOIP NETWORK ENGINEER Ot 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 03/22/2018 BAIMA, ANAYELI L VOIP NETWORK ENGINEER Ot E34.0 CARCINOID SYNDROME 03/22/2018 BAIMA, ANAYELI L VOIP NETWORK ENGINEER Ot E78.4 OTHER HYPERLIPIDEMIA 03/22/2018 BAIMA, ANAYELI L VOIP NETWORK ENGINEER Ot I 10 ESSENTIAL (PRIMARY) HYPERTENSION 03/22/2018 BAIMA, ANAYELI L VOIP NETWORK ENGINEER Ot I25.10 ATHSCL HEART DISEASE OF [place] CORONARY 03/22/2018 BAIMA, ANAYELI L VOIP NETWORK ENGINEER Ot I34.0 NONRHEUMATIC MITRAL (VALVE) INSUFFICIENC 03/22/2018 BAIMA, ANAYELI L VOIP NETWORK ENGINEER Ot I35.8 OTHER NONRHEUMATIC AORTIC VALVE DISORDER 03/22/2018 BAIMA ANAYELI L VOIP NETWORK ENGINEER Ot I65.23 OCCLUSION AND STENOSIS OF BILATERAL NG 03/22/2018 BAIMA, ANAYELI L VOIP NETWORK ENGINEER Ot E78.4 OTHER HYPERLIPIDEMIA 03/22/2018 BAIMA, ANAYELI L VOIP NETWORK ENGINEER Ot I 10 ESSENTIAL (PRIMARY) HYPERTENSION 03/22/2018 BAIMA, ANAYELI L VOIP NETWORK ENGINEER Ot I25.10 ATHSCL HEART DISEASE OF [place] CORONARY 03/22/2018 BAIMA, ANAYELI L VOIP NETWORK ENGINEER Ot I34.0 NONRHEUMATIC MITRAL (VALVE) INSUFFICIENC 03/22/2018 BAIMA, ANAYELI L VOIP NETWORK ENGINEER Ot I35.8 OTHER NONRHEUMATIC AORTIC VALVE DISORDER 03/22/2018 ANAYELI DICKENS Ot I65.23 OCCLUSION AND STENOSIS OF BILATERAL NG 03/22/2018 JOSEY RIDER DO Ot M81.0 AGE-RELATED OSTEOPOROSIS W/O CURRENT PAT 03/22/2018 JOSEY RIDER DO Ot S32.010S WEDGE COMPRESSION FRACTURE OF FIRST LUMB 03/22/2018 JOSEY RIDER DO Ot X58.XXXS EXPOSURE TO OTHER SPECIFIED FACTORS, SEQ 03/22/2018 JOSEY RIDER DO Ot Y99.8 OTHER EXTERNAL CAUSE STATUS 03/22/2018 JOSEY RIDER DO, Ot M81.0 AGE-RELATED OSTEOPOROSIS W/O CURRENT PAT 03/22/2018 URI LEIVA MD Ot I65.2 3 OCCLUSION AND STENOSIS OF BILATERAL NG 03/22/2018 URI LEIVA MD Ot N39.0 URINARY TRACT INFECTION, SITE NOT SPECIF 03/22/2018 URI LEIVA MD Ot Z01.8 18 ENCOUNTER FOR OTHER PREPROCEDURAL EXAMIN 03/22/2018 URI LEIVA MD Ot R82.9 9 OTHER ABNORMAL FINDINGS IN URINE 03/22/2018 URI LEIVA MD Ot Z01.8 12 ENCOUNTER FOR PREPROCEDURAL LABORATORY E 03/22/2018 JOSEY RIDER DO Ot M79.89 OTHER SPECIFIED SOFT TISSUE DISORDERS 03/22/2018 JOSEY RIDER DO Ot Z53.8 PROCEDURE AND TREATMENT NOT CARRIED OUT 03/24/2018 ABRAN MARCUM FACC, JOAQUÍN HINOJOSAP CCDS Ot E11.9 TYPE 2 DIABETES MELLITUS WITHOUT COMPLIC 03/24/2018 ABRAN MARCUM FACC, JOAQUÍN HINOJOSAP CCDS Ot E78.5 HYPERLIPIDEMIA, UNSPECIFIED 03/24/2018 JOAQUÍN OSULLIVAN MD, FACCP CCDS Ot I10 ESSENTIAL (PRIMARY) HYPERTENSION 03/24/2018 JOAQUÍN OSULLIVAN MD, FACCP CCDS Ot I25.10 ATHSCL HEART DISEASE OF [place] CORONARY 03/24/2018 JOAQUÍN OSULLIVAN MD, FACCP CCDS Ot I65.29 OCCLUSION AND STENOSIS OF UNSPECIFIED CA 03/24/2018 JOAQUÍN OSULLIVAN MD, FACCP CCDS Ot Z72.0 TOBACCO USE 03/25/2018 RIDINGS, NEY C WINE 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 Ot 719.07 JOINT EFFUSION-ANKLE 03/25/2018 NEY ASTUDILLO WINE 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 Ot 719.47 JOINT PAIN-ANKLE 03/25/2018 JOSEY RIDER DO Ot V76.12 OTH SCREEN MAMMO-MALIGN NEOPLASM OF [place] 03/25/2018 Ot V76.12 OTH SCREEN MAMMO- MALIGN NEOPLASM OF [place] 03/25/2018 KYMBERLY DPIndigo, DAVID Q Ot 727. 1 BUNION 03/25/2018 KYMBERLY DPM, DAVID Q Ot V72. 83 EXAM PRE-OPERATIVE NEC 03/25/2018 ABRAN MARCUM FACC, ALI FACP CCDS [...] OCCLUSION W O CEREBRAL IN 03/25/2018 KYMBERLY DPIndigo, DAVID Q Ot M20.5X2 OTHER [...] INCONCLUSIVE FINDINGS ON DX 03/25/2018 ANAYELI DICKENS Ot I65.23 OCCLUSION AND STENOSIS OF BILATERAL NG 03/25/2018 ANAYELI DICKENS VOIP NETWORK ENGINEER Ot Z53.9 PROCEDURE AND TREATMENT NOT CARRIED OUT, 03/25/2018 CHRISSIEANAYELI Hilton HOWARDP Ot E78.4 OTHER HYPERLIPIDEMIA 03/25/2018 NICKANAYELI HURTADO Hilton VOIP NETWORK ENGINEER Ot I65.23 OCCLUSION AND STENOSIS OF BILATERAL NG 03/25/2018 JOSEY RIDER DO Ot R92.8 OTH ABN AND INCONCLUSIVE FINDINGS ON DX 03/25/2018 ANAYELI DICKENS Ot E78.4 OTHER HYPERLIPIDEMIA 03/25/2018 ANAYELI DICKENSP Ot I25.10 ATHSCL HEART DISEASE OF [place] CORONARY 03/25/2018 JOSEY RIDER DO Ot R15.9 FULL INCONTINENCE OF FECES 03/25/2018 JOSEY RIDER DO Ot R32 UNSPECIFIED URINARY INCONTINENCE 03/25/2018 JOSEY RIDER DO, Ot R92.8 OTH ABN AND INCONCLUSIVE FINDINGS ON DX 03/25/2018 ANAYELI DICKENS Ot E78.4 OTHER HYPERLIPIDEMIA 03/25/2018 ANAYELI DICKENSP Ot I 10 ESSENTIAL (PRIMARY) HYPERTENSION 03/25/2018 ANAYELI DICKENSP Ot I25.10 ATHSCL HEART DISEASE OF [place] CORONARY 03/25/2018 JOSEY RIDER DO Ot 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, NEC, LUMBAR REGION, 03/25/2018 JOSEY RIDER DO Ot S32.010A WEDGE COMPRESSION FRACTURE OF FIRST LUMB 03/25/2018 JOSEY RIDER DO Ot W19.XXXA UNSPECIFIED FALL, INITIAL ENCOUNTER 03/25/2018 JOSEY RIDER DO Ot Y99.8 OTHER EXTERNAL CAUSE STATUS 03/25/2018 ANAYELI DICKENSP Ot E78.4 OTHER HYPERLIPIDEMIA 03/25/2018 ANAYELI DICKENS VOIP NETWORK ENGINEER Ot I 10 ESSENTIAL (PRIMARY) HYPERTENSION 03/25/2018 ANAYELI DICKENS VOIP NETWORK ENGINEER Ot I25.10 ATHSCL HEART DISEASE OF [place] CORONARY 03/25/2018 ANAYELI DICKENS VOIP NETWORK ENGINEER Ot I65.23 OCCLUSION AND STENOSIS OF BILATERAL NG 03/25/2018 JOSEY RIDER DO Ot N32.3 DIVERTICULUM OF BLADDER 03/25/2018 JOSEY RIDER DO Ot N32.89 OTHER SPECIFIED DISORDERS OF BLADDER 03/25/2018 BAIMA, ANAYELI L VOIP NETWORK ENGINEER Ot E78.4 OTHER HYPERLIPIDEMIA 03/25/2018 BAIMA, ANAYELI L VOIP NETWORK ENGINEER Ot I 10 ESSENTIAL (PRIMARY) HYPERTENSION 03/25/2018 BAIMA, ANAYELI L VOIP NETWORK ENGINEER Ot I25.10 ATHSCL HEART DISEASE OF [place] CORONARY 03/25/2018 BAIMA, ANAYELI L VOIP NETWORK ENGINEER Ot I34.0 NONRHEUMATIC MITRAL (VALVE) INSUFFICIENC 03/25/2018 BAIMA, ANAYELI L VOIP NETWORK ENGINEER Ot I35.8 OTHER NONRHEUMATIC AORTIC VALVE DISORDER 03/25/2018 BAIMA ANAYELI L VOIP NETWORK ENGINEER Ot 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 03/25/2018 BAIMA, ANAYELI L VOIP NETWORK ENGINEER Ot 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 03/25/2018 BAIMA, ANAYELI L VOIP NETWORK ENGINEER Ot E34.0 CARCINOID SYNDROME 03/25/2018 BAIMA, ANAYELI L VOIP NETWORK ENGINEER Ot E78.4 OTHER HYPERLIPIDEMIA 03/25/2018 BAIMA, ANAYELI L VOIP NETWORK ENGINEER Ot I 10 ESSENTIAL (PRIMARY) HYPERTENSION 03/25/2018 BAIMA, ANAYELI L VOIP NETWORK ENGINEER Ot I25.10 ATHSCL HEART DISEASE OF [place] CORONARY 03/25/2018 BAIMA ANAYELI L VOIP NETWORK ENGINEER Ot I34.0 NONRHEUMATIC MITRAL (VALVE) INSUFFICIENC 03/25/2018 BAIMA, ANAYELI L VOIP NETWORK ENGINEER Ot I35.8 OTHER NONRHEUMATIC AORTIC VALVE DISORDER 03/25/2018 BAIMA, ANAYELI L VOIP NETWORK ENGINEER Ot I65.23 OCCLUSION AND STENOSIS OF BILATERAL NG 03/25/2018 BAIMA ANAYELI L VOIP NETWORK ENGINEER Ot E78.4 OTHER HYPERLIPIDEMIA 03/25/2018 BAIMA, ANAYELI L VOIP NETWORK ENGINEER Ot I 10 ESSENTIAL (PRIMARY) HYPERTENSION 03/25/2018 BAIMA, ANAYELI L VOIP NETWORK ENGINEER Ot I25.10 ATHSCL HEART DISEASE OF [place] CORONARY 03/25/2018 BAIMA, ANAYELI L VOIP NETWORK ENGINEER Ot I34.0 NONRHEUMATIC MITRAL (VALVE) INSUFFICIENC 03/25/2018 BAIMA, ANAYELI L VOIP NETWORK ENGINEER Ot I35.8 OTHER NONRHEUMATIC AORTIC VALVE DISORDER 03/25/2018 BAIMA, ANAYELI L VOIP NETWORK ENGINEER Ot I65.23 OCCLUSION AND STENOSIS OF BILATERAL NG 03/25/2018 JOSEY RIDER DO Ot M81.0 AGE-RELATED OSTEOPOROSIS W/O CURRENT PAT 03/25/2018 JOSEY RIDER DO, Ot S32.010S WEDGE COMPRESSION FRACTURE OF FIRST LUMB 03/25/2018 JOSEY RIDER DO Ot X58.XXXS EXPOSURE TO OTHER SPECIFIED FACTORS, SEQ 03/25/2018 JOSEY RIDER DO Ot Y99.8 OTHER EXTERNAL CAUSE STATUS 03/25/2018 JOSEY RIDER DO, Ot M81.0 AGE-RELATED OSTEOPOROSIS W/O CURRENT PAT 03/25/2018 URI LEIVA MD Ot I65.2 3 OCCLUSION AND STENOSIS OF BILATERAL NG 03/25/2018 URI LEIVA MD Ot N39.0 URINARY TRACT INFECTION, SITE NOT SPECIF 03/25/2018 URI LEIVA MD Ot Z01.8 18 ENCOUNTER FOR OTHER PREPROCEDURAL EXAMIN 03/25/2018 URI LEIVA MD Ot R82.9 9 OTHER ABNORMAL FINDINGS IN URINE 03/25/2018 URI LEIVA MD Ot Z01.8 12 ENCOUNTER FOR PREPROCEDURAL LABORATORY E 03/25/2018 JOSEY RIDER DO Ot M79.89 OTHER SPECIFIED SOFT TISSUE DISORDERS 03/25/2018 JOSEY RIDER DO, Ot Z53.8 PROCEDURE AND TREATMENT NOT CARRIED OUT 03/25/2018 JOAQUÍN OSULLIVAN MD, FACC FACP CCDS Ot E11.9 TYPE 2 DIABETES MELLITUS WITHOUT COMPLIC 03/25/2018 JOAQUÍN OSULLIVAN MD, FACC FACP CCDS Ot E78.5 HYPERLIPIDEMIA, UNSPECIFIED 03/25/2018 JOAQUÍN OSULLIVAN MD, FACC FACP CCDS Ot I10 ESSENTIAL (PRIMARY) HYPERTENSION 03/25/2018 JOAQUÍN OSULLIVAN MD, FACCP CCDS Ot I25.10 ATHSCL HEART DISEASE OF [place] CORONARY 03/25/2018 JOAQUÍN OSULLIVAN MD, FACC FACP CCDS Ot I65.29 OCCLUSION AND STENOSIS OF UNSPECIFIED CA 03/25/2018 JOAQUÍN OSULLIVAN MD, FACCP CCDS Ot Z72.0 TOBACCO USE 03/29/2018 JOAQUÍN OSULLIVAN MD, FACC FACP CCDS Ot E11.9 TYPE 2 DIABETES MELLITUS WITHOUT COMPLIC 03/29/2018 JOAQUÍN OSULLIVAN MD, FACC FACP CCDS Ot E78.5 HYPERLIPIDEMIA, UNSPECIFIED 03/29/2018 JOAQUÍN OSULLIVAN MD, FACC FACP CCDS Ot I10 ESSENTIAL (PRIMARY) HYPERTENSION 03/29/2018 ABRAN MD FACC, ALI FACP CCDS Ot I25.10 ATHSCL HEART DISEASE OF [place] CORONARY 03/29/2018 ABRAN MARCUM FACC, ALI FACP CCDS Ot Z72.0 TOBACCO USE 04/03/2018 ABRAN MARCUM FACC, ALI FACP CCDS Ot E11.9 TYPE 2 DIABETES MELLITUS WITHOUT COMPLIC 04/03/2018 ABRAN MARCUM FACC, ALI FACP CCDS Ot E78.5 HYPERLIPIDEMIA, UNSPECIFIED 04/03/2018 ABRAN MARCUM FACC, ALI FACP CCDS Ot I10 ESSENTIAL (PRIMARY) HYPERTENSION 04/03/2018 ABRAN MARCUM FACC, ALI FACP CCDS Ot I25.10 ATHSCL HEART DISEASE OF [place] CORONARY 04/03/2018 ABRAN MARCUM FACC, ALI FACP CCDS Ot Z72.0 TOBACCO USE 04/13/2018 ABRAN MARCUM FACC, ALI FACP CCDS Ot E11.9 TYPE 2 DIABETES MELLITUS WITHOUT COMPLIC 04/13/2018 ABRAN MARCUM FACC, ALI FACP CCDS Ot E78.5 HYPERLIPIDEMIA, UNSPECIFIED 04/13/2018 ABRAN MARCUM FACC, ALI FACP CCDS Ot I10 ESSENTIAL (PRIMARY) HYPERTENSION 04/13/2018 ABRAN MARCUM FACC, ALI FACP CCDS Ot I25.10 ATHSCL HEART DISEASE OF [place] CORONARY 04/13/2018 ABRAN HINOJOSAC, ALI FACP CCDS Ot I65.29 OCCLUSION AND STENOSIS OF UNSPECIFIED CA 04/13/2018 ABRAN HINOJOSAC, ALI FACP CCDS Ot Z72.0 TOBACCO USE 04/21/2018 ABRAN HINOJOSAC, ALI FACP CCDS Ot E11.9 TYPE 2 DIABETES MELLITUS WITHOUT COMPLIC 04/21/2018 ABRAN HINOJOSA, ALI FACP CCDS Ot E78.5 HYPERLIPIDEMIA, UNSPECIFIED 04/21/2018 ABRAN MARCUM FACC, ALI FACP CCDS Ot I10 ESSENTIAL (PRIMARY) HYPERTENSION 04/21/2018 ABRAN HINOJOSAC, ALI FACP CCDS Ot I25.10 ATHSCL HEART DISEASE OF [place] CORONARY 04/21/2018 ABRAN HINOJOSAC, ALI FACP CCDS Ot Z72.0 TOBACCO USE 04/25/2018 JOSEY RIDER DO Ot I70.213 ATHSCL [place] ARTERIES OF EXTRM W INTRMT 04/25/2018 JOSEY RIDER DO Ot I70.213 ATHSCL [place] ARTERIES OF EXTRM W INTRMT 04/27/2018 JOSEY RIDER DO Ot E11.51 TYPE 2 DIABETES W DIABETIC PERIPHERAL AN 04/27/2018 JOSEY RIDER DO Ot I10 ESSENTIAL (PRIMARY) HYPERTENSION 04/27/2018 JOSEY RIDER DO Ot I73.9 PERIPHERAL VASCULAR DISEASE, UNSPECIFIED 04/27/2018 JOSEY RIDER DO Ot Z72.0 TOBACCO USE 04/28/2018 ABRAN MARCUM FACC, ALI FACP CCDS Ot E11.9 TYPE 2 DIABETES MELLITUS WITHOUT COMPLIC 04/28/2018 ABRAN MARCUM FACC, ALI FACP CCDS Ot E78.5 HYPERLIPIDEMIA, UNSPECIFIED 04/28/2018 ABRAN MARCUM FACC, ALI FACP CCDS Ot I10 ESSENTIAL (PRIMARY) HYPERTENSION 04/28/2018 ABRAN MARCUM FACC, ALI FACP CCDS Ot I25.10 ATHSCL HEART DISEASE OF [place] CORONARY 04/28/2018 ABRAN MARCUM FACC, ALI FACP CCDS Ot I65.29 OCCLUSION AND STENOSIS OF UNSPECIFIED CA 04/28/2018 ABRAN MARCUM FACC, ALI FACP CCDS Ot Z72.0 TOBACCO USE 05/12/2018 ABRAN MARCUM FACC, ALI FACP CCDS Ot E11.9 TYPE 2 DIABETES MELLITUS WITHOUT COMPLIC 05/12/2018 ABRAN MARCUM FACC, ALI FACP CCDS Ot E78.5 HYPERLIPIDEMIA, UNSPECIFIED 05/12/2018 ABRAN MARCUM FACC, ALI FACP CCDS Ot I10 ESSENTIAL (PRIMARY) HYPERTENSION 05/12/2018 ABRAN HINOJOSAC, ALI FACP CCDS Ot I25.10 ATHSCL HEART DISEASE OF [place] CORONARY 05/12/2018 ABRAN MARCUM FACC, ALI FACP CCDS Ot Z72.0 TOBACCO USE 05/18/2018 JOSEY RIDER DO Ot E11.51 TYPE 2 DIABETES W DIABETIC PERIPHERAL AN 05/18/2018 JOSEY RIDER DO Ot I10 ESSENTIAL (PRIMARY) HYPERTENSION 05/18/2018 JOSEY RIDER DO Ot I73.9 PERIPHERAL VASCULAR DISEASE, UNSPECIFIED 05/18/2018 JOSEY RIDER DO Ot Z72.0 TOBACCO USE 05/25/2018 JOSEY RIDER DO Ot E11.51 TYPE 2 DIABETES W DIABETIC PERIPHERAL AN 05/25/2018 JOSEY RIDER DO Ot I10 ESSENTIAL (PRIMARY) HYPERTENSION 05/25/2018 JOSEY RIDER DO Ot I73.9 PERIPHERAL VASCULAR DISEASE, UNSPECIFIED 05/25/2018 JOSEY RIDER DO Ot Z72.0 TOBACCO USE 06/09/2018 KYMBERLY DPM, DAVID Q Ot L03.116 CELLULITIS OF LEFT LOWER LIMB 06/09/2018 KYMBERLY DPM, DAVID Q Ot L97.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 06/13/2018 NATHANIEL MOFFETT MD Ot N39. 0 URINARY TRACT INFECTION, SITE NOT SPECIF 06/13/2018 NATHANIEL MOFFETT MD Ot Z01.818 ENCOUNTER FOR OTHER PREPROCEDURAL EXAMIN 06/16/2018 NATHANIEL MOFFETT MD Ot N39. 0 URINARY TRACT INFECTION, SITE NOT SPECIF 06/16/2018 NATHANIEL MOFFETT MD Ot Z01.810 ENCOUNTER FOR PREPROCEDURAL CARDIOVASCUL 06/29/2018 KYMBERLY DPM, DAVID Q Ot L97.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 07/01/2018 NATHANIEL MOFFETT MD, Ot N39. 0 URINARY TRACT INFECTION, SITE NOT SPECIF 07/01/2018 NATHANIEL MOFFETT MD Ot Z01.818 ENCOUNTER FOR OTHER PREPROCEDURAL EXAMIN 07/04/2018 KYMBERLY DPM, DAVID Q Ot L03.116 CELLULITIS OF LEFT LOWER LIMB 07/06/2018 NATHANIEL MOFFETT MD, Ot N39. 0 URINARY TRACT INFECTION, SITE NOT SPECIF 07/06/2018 NATHANIEL MOFFETT MD Ot Z01.810 ENCOUNTER FOR PREPROCEDURAL CARDIOVASCUL 07/06/2018 [...] MD, Ot I25.10 ATHSCL HEART DISEASE OF [place] CORONARY 07/06/2018 PILY ENRIQUE MD, Ot I25.2 OLD MYOCARDIAL INFARCTION 07/06/2018 PILY ENRIQUE MD, Ot I65.23 OCCLUSION AND STENOSIS OF BILATERAL [...] PRT OF UNSP LOW 07/06/2018 PILY ENRIQUE MD Ot M19.91 PRIMARY OSTEOARTHRITIS, UNSPECIFIED SITE 07/06/2018 PILY ENRIQUE MD Ot M81.0 AGE-RELATED OSTEOPOROSIS W/O CURRENT PAT 07/06/2018 PILY ENRIQUE MD Ot R32 UNSPECIFIED URINARY INCONTINENCE 07/06/2018 PILY ENRIQUE MD Ot S72.012A UNSP INTRACAPSULAR FRACTURE OF LEFT FEMU 07/06/2018 PILY ENRIQUE MD Ot W19.XXXA UNSPECIFIED FALL, INITIAL ENCOUNTER 07/06/2018 PILY ENRIQUE MD Ot Y92.[address] IN [facility] NON-INSTITUT (PRIVATE 07/06/2018 PILY ENRIQUE MD, Ot Z79.4 GROUP HOME (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 07/06/2018 PILY ENRIQUE MD Ot Z95.5 PRESENCE OF CORONARY ANGIOPLASTY IMPLANT 07/06/2018 PILY ENRIQUE MD Ot Z96.641 PRESENCE OF RIGHT ARTIFICIAL HIP JOINT 07/11/2018 KYMBERLY DPM, DAVID Q Ot L03.116 CELLULITIS OF LEFT LOWER LIMB 07/11/2018 KYMBERLY DPIndigo, DAVID Q Ot L97.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 07/13/2018 NATHANIEL MOFFETT MD Ot N39. 0 URINARY TRACT INFECTION, SITE NOT SPECIF 07/13/2018 BETINA MARCUM, NATHANIEL Ot Z01.818 ENCOUNTER FOR OTHER PREPROCEDURAL EXAMIN 07/17/2018 YVETTE INFANTE Ot E11.9 TYPE 2 DIABETES MELLITUS WITHOUT COMPLIC 07/17/2018 JODIE INFANTEIS Ot E78.00 PURE HYPERCHOLESTEROLEMIA, UNSPECIFIED 07/17/2018 JODIE INFANTEIS Ot F03.90 UNSPECIFIED DEMENTIA WITHOUT BEHAVIORAL 07/17/2018 YVETTE INFANTE Ot F41.9 ANXIETY DISORDER, UNSPECIFIED 07/17/2018 JODIE INFANTEIS Ot I25.10 ATHSCL HEART DISEASE OF [place] CORONARY 07/17/2018 YVETTE INFANTE Ot I25.2 OLD MYOCARDIAL INFARCTION 07/17/2018 YVETTE INFANTE Ot K21.9 GASTRO-ESOPHAGEAL REFLUX DISEASE WITHOUT 07/17/2018 JODEI INFANTEIS Ot L03.116 CELLULITIS OF LEFT LOWER LIMB 07/17/2018 JODIE INFANTEIS Ot M81.0 AGE- RELATED OSTEOPOROSIS W/O CURRENT PAT 07/17/2018 YVETTE INFANTE Ot T81.40XA INFECTION FOLLOWING A PROCEDURE, UNSPECI 07/17/2018 YVETTE INFANTE Ot Z79.02 GROUP HOME (CURRENT) USE OF ANTITHROMBOTI 07/17/2018 YVETTE INFANTE Ot Z79.4 GROUP HOME (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 07/17/2018 JODIE INFANTEIS Ot Z79.51 GROUP HOME (CURRENT) USE OF INHALED STERO 07/17/2018 JODIE INFANTEIS Ot Z79.82 GROUP HOME (CURRENT) USE OF ASPIRIN 07/17/2018 JODIE INFANTEIS Ot Z82.49 FAMILY HX OF ISCHEM HEART DIS AND OTH DI 07/17/2018 JODIE INFANTEIS Ot Z86.73 PRSNL HX OF TIA (TIA), AND CEREB INFRC W 07/17/2018 JODIE INFANTEIS Ot Z87.19 PERSONAL HISTORY OF OTHER DISEASES OF TH 07/17/2018 YVETTE INFANTE Ot Z90.49 ACQUIRED ABSENCE OF OTHER SPECIFIED PART 07/17/2018 JODIE INFANTEIS Ot Z90.710 ACQUIRED ABSENCE OF BOTH CERVIX AND UTER 07/17/2018 JODIE INFANTEIS Ot Z95.5 PRESENCE OF CORONARY ANGIOPLASTY IMPLANT 07/17/2018 JODIE INFANTEIS Ot Z96.642 PRESENCE OF LEFT ARTIFICIAL HIP JOINT 07/17/2018 YVETTE INFANTE Ot Z98.890 OTHER SPECIFIED POSTPROCEDURAL STATES 07/20/2018 ROBERT JAMISON APRN Ot E11 .9 TYPE 2 DIABETES MELLITUS WITHOUT COMPLIC 07/20/2018 ROBERT JAMISON APRN Ot E78.00 PURE HYPERCHOLESTEROLEMIA, UNSPECIFIED 07/20/2018 ROBERT JAMISON APRN Ot F03.90 UNSPECIFIED DEMENTIA WITHOUT BEHAVIORAL 07/20/2018 ROBERT JAMISON APRN Ot F41 .9 ANXIETY DISORDER, UNSPECIFIED 07/20/2018 ROBERT JAMISON APRN Ot I25.10 ATHSCL HEART DISEASE OF [place] CORONARY 07/20/2018 ROBERT JAMISON APRN Ot I25 .2 OLD MYOCARDIAL INFARCTION 07/20/2018 ROBERT JAMISON APRN Ot I73 .9 PERIPHERAL VASCULAR DISEASE, UNSPECIFIED 07/20/2018 ROBERT JAMISON APRN Ot K21 .9 GASTRO-ESOPHAGEAL REFLUX DISEASE WITHOUT 07/20/2018 ROBERT JAMISON APRN Ot M81 .0 AGE-RELATED OSTEOPOROSIS W/O CURRENT PAT 07/20/2018 ROBERT JAMISON APRN Ot N39 .0 URINARY TRACT INFECTION, SITE NOT SPECIF 07/20/2018 ROBERT JAMISON APRN Ot R53.81 OTHER MALAISE 07/20/2018 ROBERT JAMISON APRN Ot Z79.02 GROUP HOME (CURRENT) USE OF ANTITHROMBOTI 07/20/2018 ROBERT JAMISON APRN Ot Z79 .4 COPY DIRECTOR (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 07/20/2018 ROBERT JAMISON APRN Ot Z79.51 GROUP HOME (CURRENT) USE OF INHALED STERO 07/20/2018 ROBERT JAMISON APRN Ot Z79.82 COPY DIRECTOR (CURRENT) USE OF ASPIRIN 07/20/2018 ROBERT JAMISON APRN Ot Z82.49 FAMILY HX OF ISCHEM HEART DIS AND OTH DI 07/20/2018 ROBERT JAMISON APRN Ot Z86.73 PRSNL HX OF TIA (TIA), AND CEREB INFRC W 07/20/2018 ROBERT JAMISON APRN Ot Z87.19 PERSONAL HISTORY OF OTHER DISEASES OF TH 07/20/2018 ROBERT JAMISON APRN Ot Z90.49 ACQUIRED ABSENCE OF OTHER SPECIFIED PART 07/20/2018 ROBERT JAMISON APRN, Ot Z90.710 ACQUIRED ABSENCE OF BOTH CERVIX AND UTER 07/20/2018 ROBERT JAMISON WINE 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 Ot 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 07/20/2018 ROBERT JAMISON APRN Ot Z98.890 OTHER SPECIFIED POSTPROCEDURAL STATES 07/22/2018 LOYDA MCKEON MD Ot E11. 9 TYPE 2 DIABETES MELLITUS WITHOUT COMPLIC 07/22/2018 LOYDA MCKEON MD Ot E78. 00 PURE HYPERCHOLESTEROLEMIA, UNSPECIFIED 07/22/2018 LOYDA MCKEON MD Ot F03. 90 UNSPECIFIED DEMENTIA WITHOUT BEHAVIORAL 07/22/2018 LOYDA MCKEON MD Ot F41. 9 ANXIETY DISORDER, UNSPECIFIED 07/22/2018 LOYDA MCKEON MD Ot I25. 10 ATHSCL HEART DISEASE OF [place] CORONARY 07/22/2018 LOYDA MCKEON MD Ot I25. 2 OLD MYOCARDIAL INFARCTION 07/22/2018 LOYDA MCKEON MD Ot K21. 9 GASTRO-ESOPHAGEAL REFLUX DISEASE WITHOUT 07/22/2018 LOYDA MCKEON MD Ot M81. 0 AGE-RELATED OSTEOPOROSIS W/O CURRENT PAT 07/22/2018 LOYDA MCKEON MD Ot R40.2142 COMA SCALE, EYES OPEN, SPONTANEOUS, EMR 07/22/2018 LOYDA MCKEON MD Ot R40.2252 COMA SCALE, BEST VERBAL RESPONSE, ORIENT 07/22/2018 LOYDA MCKEON MD, Ot R40.2362 COMA SCALE, BEST MOTOR RESPONSE, OBEYS C 07/22/2018 LOYDA MCKEON MD, Ot S72.002G FX UNSP PART OF NK OF L FEMR, SUBS FOR C 07/22/2018 LOYDA MCKEON MD, Ot T81.89XA OTH COMPLICATIONS OF PROCEDURES, NEC, IN 07/22/2018 LOYDA MCKEON MD Ot W19.XXXD UNSPECIFIED FALL, SUBSEQUENT ENCOUNTER 07/22/2018 LOYDA MCKEON MD, Ot Z79. 02 GROUP HOME (CURRENT) USE OF ANTITHROMBOTI 07/22/2018 LOYDA MCKEON MD, Ot Z79. 4 GROUP HOME (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 07/22/2018 LOYDA MCKEON MD Ot Z79. 51 GROUP HOME (CURRENT) USE OF INHALED STERO 07/22/2018 LOYDA MCKEON MD, Ot Z79. 82 GROUP HOME (CURRENT) USE OF ASPIRIN 07/22/2018 LOYDA MCKEON MD, Ot Z82. 49 FAMILY HX OF [place] HEART DIS AND OTH DI 07/22/2018 LOYDA MCKEON MD, Ot Z86. 73 PRSNL HX OF TIA (TIA), AND CEREB INFRC W 07/22/2018 LOYDA MCKEON MD Ot Z87. 19 PERSONAL HISTORY OF OTHER DISEASES OF TH 07/22/2018 LOYDA MCKEON MD, Ot Z87.440 PERSONAL HISTORY OF URINARY (TRACT) INFE 07/22/2018 LOYDA MCKEON MD, Ot Z87.891 PERSONAL HISTORY OF NICOTINE DEPENDENCE 07/22/2018 LOYDA MCKEON MD, Ot Z90. 49 ACQUIRED ABSENCE OF OTHER SPECIFIED PART 07/22/2018 LOYDA MCKEON MD Ot Z90.710 ACQUIRED ABSENCE OF BOTH CERVIX AND UTER 07/22/2018 LOYDA MCKEON MD Ot Z95. 5 PRESENCE OF CORONARY ANGIOPLASTY IMPLANT 07/22/2018 LOYDA MCKEON MD, Ot Z98.890 OTHER SPECIFIED POSTPROCEDURAL STATES 07/22/2018 ROBERT JAMISON APRN Ot E11 .9 TYPE 2 DIABETES MELLITUS WITHOUT COMPLIC 07/22/2018 ROBERT JAMISON APRN Ot E78.00 PURE HYPERCHOLESTEROLEMIA, UNSPECIFIED 07/22/2018 ROBERT JAMISON APRN Ot F03.90 UNSPECIFIED DEMENTIA WITHOUT BEHAVIORAL 07/22/2018 ROBERT JAMISON APRN Ot F41 .9 ANXIETY DISORDER, UNSPECIFIED 07/22/2018 ROBERT JAMISON APRN Ot I25.10 ATHSCL HEART DISEASE OF [place] CORONARY 07/22/2018 ROBERT JAMISON APRN Ot I25 .2 OLD MYOCARDIAL INFARCTION 07/22/2018 ROBERT JAMISON APRN Ot I73 .9 PERIPHERAL VASCULAR DISEASE, UNSPECIFIED 07/22/2018 ROBERT JAMISON APRN Ot K21 .9 GASTRO-ESOPHAGEAL REFLUX DISEASE WITHOUT 07/22/2018 ROBERT JAMISON APRN Ot M81 .0 AGE-RELATED OSTEOPOROSIS W/O CURRENT PAT 07/22/2018 ROBERT JMAISON APRN Ot N39 .0 URINARY TRACT INFECTION, SITE NOT SPECIF 07/22/2018 ROBERT JAMISON APRN Ot R53.81 OTHER MALAISE 07/22/2018 ROBERT JAMISON APRN Ot Z79.02 GROUP HOME (CURRENT) USE OF ANTITHROMBOTI 07/22/2018 ROBERT JAMISON APRN Ot Z79 .4 COPY DIRECTOR (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 07/22/2018 ROBERT JAMISON APRN Ot Z79.51 GROUP HOME (CURRENT) USE OF INHALED STERO 07/22/2018 ROBERT JAMISON APRN Ot Z79.82 COPY DIRECTOR (CURRENT) USE OF ASPIRIN 07/22/2018 ROBERT JAMISON [...] AND UTER 07/22/2018 ROBERT JAMISON APRN Ot 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 07/22/2018 ROBERT JAMISON APRN Ot Z98.890 OTHER SPECIFIED POSTPROCEDURAL STATES 07/24/2018 YVETTE INFANTE Ot E11.9 TYPE 2 DIABETES MELLITUS WITHOUT COMPLIC 07/24/2018 YVETTE INFANTE Ot E78.00 PURE HYPERCHOLESTEROLEMIA, UNSPECIFIED 07/24/2018 YVETTE INFANTE Ot F03.90 UNSPECIFIED DEMENTIA WITHOUT BEHAVIORAL 07/24/2018 YVETTE INFANTE Ot F41.9 ANXIETY DISORDER, UNSPECIFIED 07/24/2018 YVETTE INFANTE Ot I25.10 ATHSCL HEART DISEASE OF [place] CORONARY 07/24/2018 YVETTE INFANTE Ot I25.2 OLD MYOCARDIAL INFARCTION 07/24/2018 YVETTE INFANTE Ot K21.9 GASTRO-ESOPHAGEAL REFLUX DISEASE WITHOUT 07/24/2018 YVETTE INFANTE Ot L03.116 CELLULITIS OF LEFT LOWER LIMB 07/24/2018 YVETTE INFANTE Ot M81.0 AGE- RELATED OSTEOPOROSIS W/O CURRENT PAT 07/24/2018 YVETTE INFANTE Ot T81.40XA INFECTION FOLLOWING A PROCEDURE, UNSPECI 07/24/2018 BERNOT, YVETTE Ot Z79.02 GROUP HOME (CURRENT) USE OF ANTITHROMBOTI 07/24/2018 JODIE INFANTEIS Ot Z79.4 COPY DIRECTOR (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 07/24/2018 NARESH YVETTE Ot Z79.51 GROUP HOME (CURRENT) USE OF INHALED STERO 07/24/2018 NARESH YVETTE Ot Z79.82 GROUP HOME (CURRENT) USE OF ASPIRIN 07/24/2018 NARESH YVETTE Ot Z82.49 FAMILY HX OF I[place]HE[place] HEART DIS AND OTH DI 07/24/2018 NARESHYVETTE Ot Z86.73 PRSNL HX OF TIA (TIA), AND CEREB INFRC W 07/24/2018 BERNCHONJODIEIS Ot Z87.19 PERSONAL HISTORY OF OTHER DISEASES OF TH 07/24/2018 YVETTE INFANTE Ot Z90.49 ACQUIRED ABSENCE OF OTHER SPECIFIED PART 07/24/2018 BERNYVETTE GIVENS Ot Z90.710 ACQUIRED ABSENCE OF BOTH CERVIX AND UTER 07/24/2018 YVETTE INFANTE Ot Z95.5 PRESENCE OF CORONARY ANGIOPLASTY IMPLANT 07/24/2018 YVETTE INFANTE Ot Z96.642 PRESENCE OF LEFT ARTIFICIAL HIP JOINT 07/24/2018 STACEYCHON YVETTE Ot Z98.890 OTHER SPECIFIED POSTPROCEDURAL STATES 07/25/2018 LOYDA MCKEON MD Ot E11. 9 TYPE 2 DIABETES MELLITUS WITHOUT COMPLIC 07/25/2018 LOYDA MCKEON MD Ot E78. 00 PURE HYPERCHOLESTEROLEMIA, UNSPECIFIED 07/25/2018 LOYDA MCKEON MD Ot F03. 90 UNSPECIFIED DEMENTIA WITHOUT BEHAVIORAL 07/25/2018 LOYDA MCKEON MD Ot F41. 9 ANXIETY DISORDER, UNSPECIFIED 07/25/2018 LOYDA MCKEON MD Ot I25. 10 ATHSCL HEART DISEASE OF [place] CORONARY 07/25/2018 LOYDA MCKEON MD Ot I25. 2 OLD MYOCARDIAL INFARCTION 07/25/2018 LOYDA MCKEON MD Ot K21. 9 GASTRO-ESOPHAGEAL REFLUX DISEASE WITHOUT 07/25/2018 LOYDA MCKEON MD Ot M81. 0 AGE-RELATED OSTEOPOROSIS W/O CURRENT PAT 07/25/2018 LOYDA MCKEON MD Ot R40.2142 COMA SCALE, EYES OPEN, SPONTANEOUS, EMR 07/25/2018 LOYDA MCKEON MD Ot R40.2252 COMA SCALE, BEST VERBAL RESPONSE, ORIENT 07/25/2018 LOYDA MCKEON MD Ot R40.2362 COMA SCALE, BEST MOTOR RESPONSE, OBEYS C 07/25/2018 LOYDA MCKEON MD, Ot S72.002G FX UNSP PART OF NK OF L FEMR, SUBS FOR C 07/25/2018 OLYDA MCKEON MD, Ot T81.89XA OTH COMPLICATIONS OF PROCEDURES, NEC, IN 07/25/2018 LOYDA MCKEON MD Ot W19.XXXD UNSPECIFIED FALL, SUBSEQUENT ENCOUNTER 07/25/2018 LOYDA MCKEON MD, Ot Z79. 02 GROUP HOME (CURRENT) USE OF ANTITHROMBOTI 07/25/2018 LOYDA MCKEON MD, Ot Z79. 4 COPY DIRECTOR (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 07/25/2018 LOYDA MCKEON MD, Ot Z79. 51 GROUP HOME (CURRENT) USE OF INHALED STERO 07/25/2018 LOYDA MCKEON MD, Ot Z79. 82 COPY DIRECTOR (CURRENT) USE OF ASPIRIN 07/25/2018 LOYDA MCKEON MD, Ot Z82. 49 FAMILY HX OF [place] HEART DIS AND OTH DI 07/25/2018 LOYDA MCKEON MD, Ot Z86. 73 PRSNL HX OF TIA (TIA), AND CEREB INFRC W 07/25/2018 LOYDA MCKEON MD, Ot Z87. 19 PERSONAL HISTORY OF OTHER DISEASES OF TH 07/25/2018 LOYDA MCKEON MD, Ot Z87.440 PERSONAL HISTORY OF URINARY (TRACT) INFE 07/25/2018 LOYDA MCKEON MD Ot Z87.891 PERSONAL HISTORY OF NICOTINE DEPENDENCE 07/25/2018 LOYDA MCKEON MD Ot Z90. 49 ACQUIRED ABSENCE OF OTHER SPECIFIED PART 07/25/2018 LOYDA MCKEON MD, Ot Z90.710 ACQUIRED ABSENCE OF BOTH CERVIX AND UTER 07/25/2018 LOYDA MCKEON MD Ot Z95. 5 PRESENCE OF CORONARY ANGIOPLASTY IMPLANT 07/25/2018 LOYDA MCKEON MD, Ot Z98.890 OTHER SPECIFIED POSTPROCEDURAL STATES 07/25/2018 KYMBERLY DPM, DAVID Q Ot R09. 89 OTH SYMPTOMS AND SIGNS INVOLVING THE CIR 07/28/2018 LOYDA MCKEON MD Ot E11. 9 TYPE 2 DIABETES MELLITUS WITHOUT COMPLIC 07/28/2018 LOYDA MCKEON MD Ot E78. 00 PURE HYPERCHOLESTEROLEMIA, UNSPECIFIED 07/28/2018 LOYDA MCKEON MD Ot F03. 90 UNSPECIFIED DEMENTIA WITHOUT BEHAVIORAL 07/28/2018 LOYDA MCKEON MD Ot F41. 9 ANXIETY DISORDER, UNSPECIFIED 07/28/2018 LOYDA MCKEON MD Ot I25. 10 ATHSCL HEART DISEASE OF [place] CORONARY 07/28/2018 LOYDA MCKEON MD Ot I25. 2 OLD MYOCARDIAL INFARCTION 07/28/2018 LOYDA MCKEON MD, Ot K21. 9 GASTRO-ESOPHAGEAL REFLUX DISEASE WITHOUT 07/28/2018 LOYDA MCKEON MD Ot M81. 0 AGE-RELATED OSTEOPOROSIS W/O CURRENT PAT 07/28/2018 LOYDA MCKEON MD, Ot R40.2142 COMA SCALE, EYES OPEN, SPONTANEOUS, EMR 07/28/2018 LOYDA MCKEON MD Ot R40.2252 COMA SCALE, BEST VERBAL RESPONSE, ORIENT 07/28/2018 LOYDA MCKEON MD, Ot R40.2362 COMA SCALE, BEST MOTOR RESPONSE, OBEYS C 07/28/2018 LOYDA MCKEON MD, Ot S72.002G FX UNSP PART OF NK OF L FEMR, SUBS FOR C 07/28/2018 LOYDA MCKEON MD Ot T81.89XA OTH COMPLICATIONS OF PROCEDURES, NEC, IN 07/28/2018 LOYDA MCKEON MD Ot W19.XXXD UNSPECIFIED FALL, SUBSEQUENT ENCOUNTER 07/28/2018 LOYDA MCKEON MD Ot Z79. 02 GROUP HOME (CURRENT) USE OF ANTITHROMBOTI 07/28/2018 LOYDA MCKEON MD, Ot Z79. 4 GROUP HOME (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 07/28/2018 LOYDA MCKEON MD Ot Z79. 51 COPY DIRECTOR (CURRENT) USE OF INHALED STERO 07/28/2018 LOYDA MCKEON MD, Ot Z79. 82 GROUP HOME (CURRENT) USE OF ASPIRIN 07/28/2018 LOYDA MCKEON MD, Ot Z82. 49 FAMILY HX OF [place] HEART DIS AND OTH DI 07/28/2018 LOYDA MCKEON MD Ot Z86. 73 PRSNL HX OF TIA (TIA), AND CEREB INFRC W 07/28/2018 LINDA MD, LOYDA J Ot Z87. 19 PERSONAL HISTORY OF OTHER DISEASES OF TH 07/28/2018 LOYDA MCKEON MD Ot Z87.440 PERSONAL HISTORY OF URINARY (TRACT) INFE 07/28/2018 LOYDA MCKEON MD, Ot Z87.891 PERSONAL HISTORY OF NICOTINE DEPENDENCE 07/28/2018 LOYDA MCKEON MD, Ot Z90. 49 ACQUIRED ABSENCE OF OTHER SPECIFIED PART 07/28/2018 LOYDA MCKEON MD Ot Z90.710 ACQUIRED ABSENCE OF BOTH CERVIX AND UTER 07/28/2018 LOYDA MCKEON MD Ot Z95. 5 PRESENCE OF CORONARY ANGIOPLASTY IMPLANT 07/28/2018 LOYDA MCKEON MD, Ot Z98.890 OTHER SPECIFIED POSTPROCEDURAL STATES 08/08/2018 BRENDA HERNANDEZ MD, Ot D50. 9 IRON DEFICIENCY ANEMIA, UNSPECIFIED 08/08/2018 BRENDA HERNANDEZ MD, Ot E11.649 TYPE 2 DIABETES MELLITUS WITH HYPOGLYCEM 08/08/2018 BRENDA HERNANDEZ MD, Ot E78. 00 PURE HYPERCHOLESTEROLEMIA, UNSPECIFIED 08/08/2018 BRENDA HERNANDEZ MD, Ot F03. 90 UNSPECIFIED DEMENTIA WITHOUT BEHAVIORAL 08/08/2018 BRENDA HERNANDEZ MD, Ot F41. 9 ANXIETY DISORDER, UNSPECIFIED 08/08/2018 BRENDA HERNANDEZ MD, Ot I25. 10 ATHSCL HEART DISEASE OF [place] CORONARY 08/08/2018 BRENDA HERNANDEZ MD, Ot I25. 2 OLD MYOCARDIAL INFARCTION 08/08/2018 BRENDA HERNANDEZ MD, Ot I73. 9 PERIPHERAL VASCULAR DISEASE, UNSPECIFIED 08/08/2018 BRENDA HERNANDEZ MD, Ot K21. 9 GASTRO-ESOPHAGEAL REFLUX DISEASE WITHOUT 08/08/2018 BRENDA HERNANDEZ MD, Ot M19. 91 PRIMARY OSTEOARTHRITIS, UNSPECIFIED SITE 08/08/2018 BRENDA HERNANDEZ MD, Ot M54. 9 DORSALGIA, UNSPECIFIED 08/08/2018 BRENDA HERNANDEZ MD, Ot M81. 0 AGE-RELATED OSTEOPOROSIS W/O CURRENT PAT 08/08/2018 BRENDA HERNANDEZ MD, Ot N30. 00 ACUTE CYSTITIS WITHOUT HEMATURIA 08/08/2018 BRENDA HERNANDEZ MD, Ot T81.44XA SEPSIS FOLLOWING A PROCEDURE, INITIAL EN 08/08/2018 BRENDA HERNANDEZ MD, Ot T84.52XA INFECT/INFLM REACTION DUE TO INTERNAL LE 08/08/2018 BRENDA HERNANDEZ MD, Ot Z79. 4 COPY DIRECTOR (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 08/08/2018 BRENDA HERNANDEZ MD, Ot Z86. 73 PRSNL HX OF TIA (TIA), AND CEREB INFRC W 08/08/2018 BERNDA HERNANDEZ MD, Ot Z87. 19 PERSONAL HISTORY OF OTHER DISEASES OF TH 08/08/2018 BRENDA HERNANDEZ MD, Ot Z87.891 PERSONAL HISTORY OF NICOTINE DEPENDENCE 08/08/2018 BRENDA HERNANDEZ MD, Ot Z95. 5 PRESENCE OF CORONARY ANGIOPLASTY IMPLANT 08/08/2018 BRENDA HERNANDEZ MD, Ot Z96.642 PRESENCE OF LEFT ARTIFICIAL HIP JOINT 08/09/2018 BRENDA HERNANDEZ MD, Ot D50. 9 IRON DEFICIENCY ANEMIA, UNSPECIFIED 08/09/2018 BRENDA HERNANDEZ MD, Ot E11.649 TYPE 2 DIABETES MELLITUS WITH HYPOGLYCEM 08/09/2018 BRENDA HERNANDEZ MD, Ot E78. 00 PURE HYPERCHOLESTEROLEMIA, UNSPECIFIED 08/09/2018 BRENDA HERNANDEZ MD, Ot F03. 90 UNSPECIFIED DEMENTIA WITHOUT BEHAVIORAL 08/09/2018 BRENDA HERNANDEZ MD, Ot F41. 9 ANXIETY DISORDER, UNSPECIFIED 08/09/2018 BRENDA HERNANDEZ MD, Ot I25. 10 ATHSCL HEART DISEASE OF [place] CORONARY 08/09/2018 BRENDA HERNANDEZ MD, Ot I25. 2 OLD MYOCARDIAL INFARCTION 08/09/2018 BRENDA HERNANDEZ MD, Ot I73. 9 PERIPHERAL VASCULAR DISEASE, UNSPECIFIED 08/09/2018 BRENDA HERNANDEZ MD, Ot K21. 9 GASTRO-ESOPHAGEAL REFLUX DISEASE WITHOUT 08/09/2018 BRENDA HERNANDEZ MD, Ot M19. 91 PRIMARY OSTEOARTHRITIS, UNSPECIFIED SITE 08/09/2018 BRENDA HERNANDEZ MD, Ot M54. 9 DORSALGIA, UNSPECIFIED 08/09/2018 BRENDA HERNANDEZ MD, Ot M81. 0 AGE-RELATED OSTEOPOROSIS W/O CURRENT PAT 08/09/2018 BRENDA HERNANDEZ MD, Ot N30. 00 ACUTE CYSTITIS WITHOUT HEMATURIA 08/09/2018 DAVID MD, BRENDA M Ot T81.44XA SEPSIS FOLLOWING A PROCEDURE, INITIAL EN 08/09/2018 BRENDA HERNANDEZ MD, Ot T84.52XA INFECT/INFLM REACTION DUE TO INTERNAL LE 08/09/2018 BRENDA HERNANDEZ MD, Ot Z79. 4 GROUP HOME (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 08/09/2018 BRENDA HERNANDEZ MD, Ot Z86. 73 PRSNL HX OF TIA (TIA), AND CEREB INFRC W 08/09/2018 BRENDA HERNANDEZ MD, Ot Z87. 19 PERSONAL HISTORY OF OTHER DISEASES OF TH 08/09/2018 BRENDA HERNANDEZ MD, Ot Z87.891 PERSONAL HISTORY OF NICOTINE DEPENDENCE 08/09/2018 BRENDA HERNANDEZ MD, Ot Z95. 5 PRESENCE OF CORONARY ANGIOPLASTY IMPLANT 08/09/2018 BRENDA HERNANDEZ MD, Ot Z96.642 PRESENCE OF LEFT ARTIFICIAL HIP JOINT 08/09/2018 AIXA MARCUM, CAROL ANN Briceño Ot D64.9 ANEMIA, UNSPECIFIED 08/09/2018 BRENDA HERNANDEZ MD, Ot D50. 9 IRON DEFICIENCY ANEMIA, UNSPECIFIED 08/09/2018 BRENDA HERNANDEZ MD, Ot E11.649 TYPE 2 DIABETES MELLITUS WITH HYPOGLYCEM 08/09/2018 BRENDA HERNANDEZ MD, Ot E78. 00 PURE HYPERCHOLESTEROLEMIA, UNSPECIFIED 08/09/2018 BRENDA HERNANDEZ MD, Ot F03. 90 UNSPECIFIED DEMENTIA WITHOUT BEHAVIORAL 08/09/2018 BRENDA HERNANDEZ MD, Ot F41. 9 ANXIETY DISORDER, UNSPECIFIED 08/09/2018 BRENDA HERNANDEZ MD, Ot I25. 10 ATHSCL HEART DISEASE OF [place] CORONARY 08/09/2018 BRENDA HERNANDEZ MD, Ot I25. 2 OLD MYOCARDIAL INFARCTION 08/09/2018 BRENDA HERNANDEZ MD, Ot I73. 9 PERIPHERAL VASCULAR DISEASE, UNSPECIFIED 08/09/2018 BRENDA HERNANDEZ MD, Ot K21. 9 GASTRO-ESOPHAGEAL REFLUX DISEASE WITHOUT 08/09/2018 BRENDA HERNANDEZ MD, Ot M19. 91 PRIMARY OSTEOARTHRITIS, UNSPECIFIED SITE 08/09/2018 BRENDA HERNANDEZ MD, Ot M54. 9 DORSALGIA, UNSPECIFIED 08/09/2018 BRENDA HERNANDEZ MD, Ot M81. 0 AGE-RELATED OSTEOPOROSIS W/O CURRENT PAT 08/09/2018 BRENDA HERNANDEZ MD, Ot N30. 00 ACUTE CYSTITIS WITHOUT HEMATURIA 08/09/2018 BRENDA HERNANDEZ MD, Ot T81.44XA SEPSIS FOLLOWING A PROCEDURE, INITIAL EN 08/09/2018 BRENDA HERNANDEZ MD, Ot T84.52XA INFECT/INFLM REACTION DUE TO INTERNAL LE 08/09/2018 BRENDA HERNANDEZ MD, Ot Z79. 4 GROUP HOME (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 08/09/2018 BRENDA HERNANDEZ MD, Ot Z86. 73 PRSNL HX OF TIA (TIA), AND CEREB INFRC W 08/09/2018 BRENDA HERNANDEZ MD, Ot Z87. 19 PERSONAL HISTORY OF OTHER DISEASES OF TH 08/09/2018 BRENDA HERNANDEZ MD, Ot Z87.891 PERSONAL HISTORY OF NICOTINE DEPENDENCE 08/09/2018 BRENDA HERNANDEZ MD, Ot Z95. 5 PRESENCE OF CORONARY ANGIOPLASTY IMPLANT 08/09/2018 BRENDA HERNANDEZ MD, Ot Z96.642 PRESENCE OF LEFT ARTIFICIAL HIP JOINT 08/10/2018 BRENDA HERNANDEZ MD, Ot B96. 89 OTH BACTERIAL AGENTS THE CAUSE OF DIS 08/10/2018 BRENDA HERNNADEZ MD, Ot D50. 9 IRON DEFICIENCY ANEMIA, UNSPECIFIED 08/10/2018 BRENDA HERNANDEZ MD Ot E11.649 TYPE 2 DIABETES MELLITUS WITH HYPOGLYCEM 08/10/2018 BRENDA HERNANDEZ MD Ot E78. 00 PURE HYPERCHOLESTEROLEMIA, UNSPECIFIED 08/10/2018 BRENDA HERNANDEZ MD Ot F03. 90 UNSPECIFIED DEMENTIA WITHOUT BEHAVIORAL 08/10/2018 BRENDA HERNANDEZ MD, Ot F41. 9 ANXIETY DISORDER, UNSPECIFIED 08/10/2018 BRENDA HERNANDEZ MD, Ot I25. 10 ATHSCL HEART DISEASE OF [place] CORONARY 08/10/2018 BRENDA HERNANDEZ MD, Ot I25. 2 OLD MYOCARDIAL INFARCTION 08/10/2018 BRENDA HERNANDEZ MD, Ot I73. 9 PERIPHERAL VASCULAR DISEASE, UNSPECIFIED 08/10/2018 BRENDA HERNANDEZ MD, Ot K21. 9 GASTRO-ESOPHAGEAL REFLUX DISEASE WITHOUT 08/10/2018 BRENDA HERNANDEZ MD, Ot M19. 91 PRIMARY OSTEOARTHRITIS, UNSPECIFIED SITE 08/10/2018 BRENDA HERNANDEZ MD, Ot M54. 9 DORSALGIA, UNSPECIFIED 08/10/2018 BRENDA HERNANDEZ MD, Ot M81. 0 AGE-RELATED OSTEOPOROSIS W/O CURRENT PAT 08/10/2018 BRENDA HERNANDEZ MD, Ot N30. 00 ACUTE CYSTITIS WITHOUT HEMATURIA 08/10/2018 BRENDA HERNANDEZ MD, Ot T81.44XA SEPSIS FOLLOWING A PROCEDURE, INITIAL EN 08/10/2018 BRENDA HERNANDEZ MD, Ot T84.52XA INFECT/INFLM REACTION DUE TO INTERNAL LE 08/10/2018 BRENDA HERNANDEZ MD, Ot Z79. 4 COPY DIRECTOR (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 08/10/2018 BRENDA HERNANDEZ MD, Ot Z86. 73 PRSNL HX OF TIA (TIA), AND CEREB INFRC W 08/10/2018 BRENDA HERNANDEZ MD, Ot Z87. 19 PERSONAL HISTORY OF OTHER DISEASES OF 08/10/2018 BRENDA HERNANDEZ MD, Ot Z87.891 PERSONAL HISTORY OF NICOTINE DEPENDENCE 08/10/2018 BRENDA HERNANDEZ MD, Ot Z95. 5 PRESENCE OF CORONARY ANGIOPLASTY IMPLANT 08/10/2018 BRENDA HERNANDEZ MD, Ot Z96.642 PRESENCE OF LEFT ARTIFICIAL HIP JOINT 08/23/2018 KYMBERLY MENSAH, DAVID Q Ot R09. 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2 COPY DIRECTOR (CURRENT) USE OF ANTIBIOTICS 09/20/2018 RIDER DO, JOSEY Parikh Ot Z51.81 ENCOUNTER FOR THERAPEUTIC DRUG LEVEL MON 09/20/2018 RIDER DO, JOSEY Parikh Ot Z79.2 GROUP HOME (CURRENT) USE OF ANTIBIOTICS 09/22/2018 RIDERJOSEY TILLEY DO Ot V76.12 OTH SCREEN MAMMO-MALIGN NEOPLASM OF [place] 09/22/2018 Ot V76.12 OTH SCREEN MAMMO- MALIGN NEOPLASM OF [place] 09/22/2018 KYMBERLY DPM, DAVID Q Ot 727. 1 BUNION 09/22/2018 KYMBERLY DPM, DAVID Q Ot V72. 83 EXAM PRE-OPERATIVE NEC 09/22/2018 ABRAN MARCUM FACC, JOAQUÍN FACP CCDS Ot 272.4 HYPERLIPIDEMIA NEC/NOS 09/22/2018 ABRAN MARCUM FACC, JOAQUÍN FACP CCDS Ot 401.9 HYPERTENSION NOS 09/22/2018 ABRAN MARCUM FACC, JOAQUÍN FACP CCDS Ot 414.9 CHR ISCHEMIC HRT DIS NOS 09/22/2018 ABRAN MARCUM FACC, ALI FACP CCDS Ot 433.10 CAROTID ARTERY OCCLUSION W O CEREBRAL IN 09/22/2018 ABRAN MARCUM FACC, JOAQUÍN FACP CCDS Ot 272.4 HYPERLIPIDEMIA NEC/NOS 09/22/2018 ABRAN MARCUM FACC, ALI FACP CCDS Ot 401.9 HYPERTENSION NOS 09/22/2018 ABRAN MARCUM FACC, ALI FACP CCDS Ot 414.9 CHR ISCHEMIC HRT DIS NOS 09/22/2018 ABRAN MARCUM FACC, ALI FACP CCDS Ot 433.10 CAROTID ARTERY OCCLUSION W O CEREBRAL IN 09/22/2018 DAVID TRAYLOR DPM Ot M20.5X2 OTHER DEFORMITIES OF TOE(S) (ACQUIRED), 09/22/2018 DAVID TRAYLOR DPM Ot Z01.818 ENCOUNTER FOR OTHER PREPROCEDURAL EXAMIN 09/22/2018 DAVID TRAYLOR DPM Ot L97.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 09/22/2018 JOSEY RIDER DO Ot Z12.31 ENCNTR SCREEN MAMMOGRAM FOR MALIGNANT NE 09/22/2018 JOSEY RIDER DO Ot R92.8 OTH ABN AND INCONCLUSIVE FINDINGS ON DX 09/22/2018 ANAYELI DICKENS Ot I65.23 OCCLUSION AND STENOSIS OF BILATERAL NG 09/22/2018 NAAYELI DICKENS Ot Z53.9 PROCEDURE AND TREATMENT NOT CARRIED OUT, 09/22/2018 ANAYELI DICKENS Ot E78.4 OTHER HYPERLIPIDEMIA 09/22/2018 ANAYELI DICKENS Ot I65.23 OCCLUSION AND STENOSIS OF BILATERAL NG 09/22/2018 JOSEY RIDER DO Ot R92.8 OTH ABN AND INCONCLUSIVE FINDINGS ON DX 09/22/2018 ANAYELI DICKENS Ot E78.4 OTHER HYPERLIPIDEMIA 09/22/2018 ANAYELI DICKENS Ot I25.10 ATHSCL HEART DISEASE OF [place] CORONARY 09/22/2018 JOSEY RIDER DO Ot R15.9 FULL INCONTINENCE OF FECES 09/22/2018 JOSEY RIDER DO Ot R32 UNSPECIFIED URINARY INCONTINENCE 09/22/2018 JOSEY RIDER DO, Ot R92.8 OTH ABN AND INCONCLUSIVE FINDINGS ON DX 09/22/2018 ANAYELI DICKENS Ot E78.4 OTHER HYPERLIPIDEMIA 09/22/2018 ANAYELI DICKENS Ot I 10 ESSENTIAL (PRIMARY) HYPERTENSION 09/22/2018 ANAYELI DICKENS Ot I25.10 ATHSCL HEART DISEASE OF [place] CORONARY 09/22/2018 JOSEY RIDER DO Ot 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, NEC, LUMBAR REGION, 09/22/2018 JOSEY RIDER DO Ot S32.010A WEDGE COMPRESSION FRACTURE OF FIRST LUMB 09/22/2018 JOSEY RIDER DO Ot W19.XXXA UNSPECIFIED FALL, INITIAL ENCOUNTER 09/22/2018 JOSEY RIDER DO Ot Y99.8 OTHER EXTERNAL CAUSE STATUS 09/22/2018 NICKANNE HURTADOHER L [employer]WORK ENGINEER Ot E78.4 OTHER HYPERLIPIDEMIA 09/22/2018 NICKMA, ANAYELI L [employer]WORK ENGINEER Ot I 10 ESSENTIAL (PRIMARY) HYPERTENSION 09/22/2018 CHRISSIE ANAYELI L [employer] NETWORK ENGINEER Ot I25.10 ATHSCL HEART DISEASE OF [place] CORONARY 09/22/2018 ANNE DICKENSHER L [employer] NETWORK ENGINEER Ot I65.23 OCCLUSION AND STENOSIS OF BILATERAL NG 09/22/2018 JOSEY RIDER DO Ot N32.3 DIVERTICULUM OF BLADDER 09/22/2018 JOSEY RIDER DO Ot N32.89 OTHER SPECIFIED DISORDERS OF [place] 09/22/2018 ANAYELI DICKENS L [employer] NETWORK ENGINEER Ot E78.4 OTHER HYPERLIPIDEMIA 09/22/2018 CHRISSIE, ANAYELI L [employer] NETWORK ENGINEER Ot I 10 ESSENTIAL (PRIMARY) HYPERTENSION 09/22/2018 ANNE DICKENSHER L VOIP NETWORK ENGINEER Ot I25.10 ATHSCL HEART DISEASE OF [place] CORONARY 09/22/2018 NICKGENESISANNEANAYELI L VOIP NETWORK ENGINEER Ot I34.0 NONRHEUMATIC MITRAL (VALVE) INSUFFICIENC 09/22/2018 NICKMA ANAYELI L VOIP NETWORK ENGINEER Ot I35.8 OTHER NONRHEUMATIC AORTIC VALVE DISORDER 09/22/2018 NICKMA ANAYELI L [employer] NETWORK ENGINEER Ot 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 09/22/2018 NICKMA ANAYELI L [employer] NETWORK ENGINEER Ot 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 09/22/2018 ANNE DICKENSHER L [employer]IP NETWORK ENGINEER Ot E34.0 CARCINOID SYNDROME 09/22/2018 ANNE DICKENSHER L VOIP NETWORK ENGINEER Ot E78.4 OTHER HYPERLIPIDEMIA 09/22/2018 NICKMA ANAYELI L VOIP NETWORK ENGINEER Ot I 10 ESSENTIAL (PRIMARY) HYPERTENSION 09/22/2018 NICKMA ANAYELI L VOIP NETWORK ENGINEER Ot I25.10 ATHSCL HEART DISEASE OF [place] CORONARY 09/22/2018 NICKMA ANAYELI L VOIP NETWORK ENGINEER Ot I34.0 NONRHEUMATIC MITRAL (VALVE) INSUFFICIENC 09/22/2018 BAIMA ANAYELI L VOIP NETWORK ENGINEER Ot I35.8 OTHER NONRHEUMATIC AORTIC VALVE DISORDER 09/22/2018 BAIMA ANAYELI L VOIP NETWORK ENGINEER Ot I65.23 OCCLUSION AND STENOSIS OF BILATERAL NG 09/22/2018 ANAYELI DICKENS SUKI Ot E78.4 OTHER HYPERLIPIDEMIA 09/22/2018 ANAYELI DICKENS SUKI Ot I 10 ESSENTIAL (PRIMARY) HYPERTENSION 09/22/2018 ANAYELI DICKENS SUKI Ot I25.10 ATHSCL HEART DISEASE OF [place] CORONARY 09/22/2018 ANAYELI DICKENS SUKI Ot I34.0 NONRHEUMATIC MITRAL (VALVE) INSUFFICIENC 09/22/2018 ANAYELI DICKENS SUKI Ot I35.8 OTHER NONRHEUMATIC AORTIC VALVE DISORDER 09/22/2018 ANAYELI DICKENS SUKI Ot I65.23 OCCLUSION AND STENOSIS OF BILATERAL NG 09/22/2018 JOSEY RIDER DO, Ot M81.0 AGE-RELATED OSTEOPOROSIS W/O CURRENT PAT 09/22/2018 JOSEY RIDER DO, Ot S32.010S WEDGE COMPRESSION FRACTURE OF FIRST LUMB 09/22/2018 JOSEY RIDER DO, Ot X58.XXXS EXPOSURE TO OTHER SPECIFIED FACTORS, SEQ 09/22/2018 JOSEY RIDER DO, Ot Y99.8 OTHER EXTERNAL CAUSE STATUS 09/22/2018 JOSEY RIDER DO, Ot M81.0 AGE-RELATED OSTEOPOROSIS W/O CURRENT PAT 09/22/2018 URI LEIVA MD Ot I65.2 3 OCCLUSION AND STENOSIS OF BILATERAL NG 09/22/2018 URI LEIVA MD Ot N39.0 URINARY TRACT INFECTION, SITE NOT SPECIF 09/22/2018 URI LEIVA MD Ot Z01.8 18 ENCOUNTER FOR OTHER PREPROCEDURAL EXAMIN 09/22/2018 URI LEIVA MD Ot R82.9 9 OTHER ABNORMAL FINDINGS IN URINE 09/22/2018 URI LEIVA MD Ot Z01.8 12 ENCOUNTER FOR PREPROCEDURAL LABORATORY E 09/22/2018 JOSEY RIDER DO, Ot M79.89 OTHER SPECIFIED SOFT TISSUE DISORDERS 09/22/2018 JOSEY RIDER DO, Ot Z53.8 PROCEDURE AND TREATMENT NOT CARRIED OUT 09/22/2018 ABRAN MARCUM FACC, JOAQUÍN CHOUDHURYS Ot E11.9 TYPE 2 DIABETES MELLITUS WITHOUT COMPLIC 09/22/2018 JOAQUÍN OSULLIVAN MD, FACC, FACPS Ot E78.5 HYPERLIPIDEMIA, UNSPECIFIED 09/22/2018 ABRAN MD FACC, ALI FACP CCDS Ot I10 ESSENTIAL (PRIMARY) HYPERTENSION 09/22/2018 ABRAN MARCUM [facility], ALI FACP CCDS Ot I25.10 ATHSCL HEART DISEASE OF [place] CORONARY 09/22/2018 ABRAN MARCUM [facility], ALI FACP CCDS Ot I65.29 OCCLUSION AND STENOSIS OF UNSPECIFIED CA 09/22/2018 ABRAN MARCUM [facility], ALI FACP CCDS Ot Z72.0 TOBACCO USE 09/22/2018 ABRAN MARCUM [facility], ALI FACP CCDS Ot E11.9 TYPE 2 DIABETES MELLITUS WITHOUT COMPLIC 09/22/2018 ABRAN MARCUM [facility], ALI FACP CCDS Ot E78.5 HYPERLIPIDEMIA, UNSPECIFIED 09/22/2018 ABRAN MARCUM [facility], ALI FACP CCDS Ot I10 ESSENTIAL (PRIMARY) HYPERTENSION 09/22/2018 ABRAN MARCUM [facility], ALI FACP CCDS Ot I25.10 ATHSCL HEART DISEASE OF [place] CORONARY 09/22/2018 ABRAN MARCUM [facility], ALI FACP CCDS Ot Z72.0 TOBACCO USE 09/22/2018 JOSEY RIDER DO Ot E11.51 TYPE 2 DIABETES W DIABETIC PERIPHERAL AN 09/22/2018 JOSEY RIDER DO Ot I10 ESSENTIAL (PRIMARY) HYPERTENSION 09/22/2018 JOSEY RIDER DO Ot I73.9 PERIPHERAL VASCULAR DISEASE, UNSPECIFIED 09/22/2018 JOSEY RIDER DO Ot Z72.0 TOBACCO USE 09/22/2018 KYMBERLY DPM, DAVID Q Ot L97.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 09/22/2018 KYMBERLY DPM, DAVID Q Ot L03.116 CELLULITIS OF LEFT LOWER LIMB 09/22/2018 NATHANIEL MOFFETT MD Ot N39. 0 URINARY TRACT INFECTION, SITE NOT SPECIF 09/22/2018 NATHANIEL MOFFETT MD Ot Z01.818 ENCOUNTER FOR OTHER PREPROCEDURAL EXAMIN 09/22/2018 NATHANIEL MOFFETT MD Ot N39. 0 URINARY TRACT INFECTION, SITE NOT SPECIF 09/22/2018 NATHANIEL MOFFETT MD Ot Z01.810 ENCOUNTER FOR PREPROCEDURAL CARDIOVASCUL 09/22/2018 KYMBERLY DPM, DAVID Q Ot R09. 89 OTH SYMPTOMS AND SIGNS INVOLVING THE CIR 09/22/2018 AIXA MARCUM, CAROL ANN Briceño Ot D64.9 ANEMIA, UNSPECIFIED 09/22/2018 RAMIREZ DO, CARMEN Ot M00.85 9 ARTHRITIS DUE TO OTHER BACTERIA, UNSPECI 09/22/2018 RIDER DOJOSEY Ot Z51.81 ENCOUNTER FOR THERAPEUTIC DRUG LEVEL MON 09/22/2018 RIDER DOJOSEY Ot Z79.2 GROUP HOME (CURRENT) USE OF ANTIBIOTICS 09/22/2018 RIDER DOJOSEY Ot Z51.81 ENCOUNTER FOR THERAPEUTIC DRUG LEVEL MON 09/22/2018 RIDER DO, JOSEY Parikh Ot Z79.2 GROUP HOME (CURRENT) USE OF ANTIBIOTICS 09/22/2018 RIDER DO, JOSEY Parikh Ot Z51.81 ENCOUNTER FOR THERAPEUTIC DRUG LEVEL MON 09/22/2018 RDIER DO, JOSEY Parikh Ot Z79.2 GROUP HOME (CURRENT) USE OF ANTIBIOTICS 09/22/2018 RIDER DOJOSEY Ot Z51.81 ENCOUNTER FOR THERAPEUTIC DRUG LEVEL MON 09/22/2018 RIDER DOJOSEY Ot Z79.2 GROUP HOME (CURRENT) USE OF ANTIBIOTICS 09/26/2018 JOSEY RIDER DO Ot T84.021S DISLOCATION OF INTERNAL LEFT HIP PROSTHE 09/26/2018 RIDER DO, JOSEY Parikh Ot Z79.2 COPY DIRECTOR (CURRENT) USE OF ANTIBIOTICS 09/26/2018 RDIER DOJOSEY Ot Z51.81 ENCOUNTER FOR THERAPEUTIC DRUG LEVEL MON 09/26/2018 RIDER DOJOSEY Ot Z79.2 COPY DIRECTOR (CURRENT) USE OF ANTIBIOTICS 09/27/2018 ADRY DOJOSEY Ot Z51.81 ENCOUNTER FOR THERAPEUTIC DRUG LEVEL MON 09/27/2018 RIDER DO, JOSEY Parikh Ot Z79.2 GROUP HOME (CURRENT) USE OF ANTIBIOTICS 09/27/2018 RIDER DO, JOSEY Parikh Ot Z51.81 ENCOUNTER FOR THERAPEUTIC DRUG LEVEL MON 09/27/2018 RIDER DO, JOSEY Parikh Ot Z79.2 COPY DIRECTOR (CURRENT) USE OF ANTIBIOTICS 09/29/2018 JAMES DOCARMEN Ot M00.85 9 ARTHRITIS DUE TO OTHER BACTERIA, UNSPECI 09/30/2018 RIDER DOJOSEY Ot Z51.81 ENCOUNTER FOR THERAPEUTIC DRUG LEVEL MON 09/30/2018 RIDER DO, JOSEY Parikh Ot Z79.2 GROUP HOME (CURRENT) USE OF ANTIBIOTICS 10/04/2018 RIDERJOSEY TILLEY DO Ot Z51.81 ENCOUNTER FOR THERAPEUTIC DRUG LEVEL MON 10/04/2018 JOSEY RIDER DO Ot Z79.2 GROUP HOME (CURRENT) USE OF ANTIBIOTICS 10/06/2018 JOSEY RIDER DO Ot Z51.81 ENCOUNTER FOR THERAPEUTIC DRUG LEVEL MON 10/06/2018 RIDER DOJOSEY Ot Z79.2 GROUP HOME (CURRENT) USE OF ANTIBIOTICS 10/07/2018 JOSEY RIDER DO Ot Z51.81 ENCOUNTER FOR THERAPEUTIC DRUG LEVEL MON 10/07/2018 RIDER JOSEY BARRERA Ot Z79.2 GROUP HOME (CURRENT) USE OF ANTIBIOTICS 10/11/2018 CARMEN RAMIREZ DO Ot M00.85 9 ARTHRITIS DUE TO OTHER BACTERIA, UNSPECI 10/13/2018 JOSEY RIDER DO Ot T84.021S DISLOCATION OF INTERNAL LEFT HIP PROSTHE 10/13/2018 JOSEY RIDER DO Ot Z79.2 COPY DIRECTOR (CURRENT) USE OF ANTIBIOTICS 10/14/2018 JOSEY RIDER DO Ot Z51.81 ENCOUNTER FOR THERAPEUTIC DRUG LEVEL MON 10/14/2018 JOSEY RIDER DO Ot Z79.2 GROUP HOME (CURRENT) USE OF ANTIBIOTICS 10/17/2018 JOSEY RIDER DO Ot Z51.81 ENCOUNTER FOR THERAPEUTIC DRUG LEVEL MON 10/17/2018 JOSEY RIDER DO Ot Z79.2 COPY DIRECTOR (CURRENT) USE OF ANTIBIOTICS 10/24/2018 JOSEY RIDER DO Ot Z51.81 ENCOUNTER FOR THERAPEUTIC DRUG LEVEL MON 10/24/2018 JOSEY RIDER DO Ot Z79.2 GROUP HOME (CURRENT) USE OF ANTIBIOTICS 11/14/2018 CARMEN RAMIREZ DO Ot M00.85 9 ARTHRITIS DUE TO OTHER BACTERIA, UNSPECI 11/18/2018 JOSEY RIDER DO Ot Z51.81 ENCOUNTER FOR THERAPEUTIC DRUG LEVEL MON 11/18/2018 JOSEY RIDER DO, Ot Z79.2 COPY DIRECTOR (CURRENT) USE OF ANTIBIOTICS 04/12/2019 ROBERT JAMISON APRN Ot E11 .9 TYPE 2 DIABETES MELLITUS WITHOUT COMPLIC 04/12/2019 ROBERT JAMISON APRN Ot E78.00 PURE HYPERCHOLESTEROLEMIA, UNSPECIFIED 04/12/2019 ROBERT JAMISON APRN Ot F03.90 UNSPECIFIED DEMENTIA WITHOUT BEHAVIORAL 04/12/2019 ROBERT JAMISON APRN Ot F41 .9 ANXIETY DISORDER, UNSPECIFIED 04/12/2019 ROBERT JAMSION APRN Ot I25.10 ATHSCL HEART DISEASE OF [place] CORONARY 04/12/2019 ROBERT JAMISON APRN Ot I25 .2 OLD MYOCARDIAL INFARCTION 04/12/2019 ROBERT JAMISON APRN Ot K21 .9 GASTRO-ESOPHAGEAL REFLUX DISEASE WITHOUT 04/12/2019 ROBERT JAMISON APRN Ot M54 .2 CERVICALGIA 04/12/2019 ROBERT JAMISON APRN Ot M81 .0 AGE-RELATED OSTEOPOROSIS W/O CURRENT PAT 04/12/2019 ROBERT JAMISON APRN Ot W06.XXXA FALL FROM BED, INITIAL ENCOUNTER 04/12/2019 ROBERT JAMISON APRN Ot Z79.02 COPY DIRECTOR (CURRENT) USE OF ANTITHROMBOTI 04/12/2019 ROBERT JAMISON APRN Ot Z79 .4 COPY DIRECTOR (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 04/12/2019 ROBERT JAMISON APRN Ot Z79.82 COPY DIRECTOR (CURRENT) USE OF ASPIRIN 04/12/2019 ROBERT JAMISON APRN Ot Z82.49 FAMILY HX OF ISCHEM HEART DIS AND OTH DI 04/12/2019 ROBERT JAMISON APRN Ot Z86.73 PRSNL HX OF TIA (TIA), AND CEREB INFRC W 04/12/2019 ROBERT JAMISON APRN Ot Z87.891 PERSONAL HISTORY OF NICOTINE DEPENDENCE 04/12/2019 ROBERT JAMISON APRN Ot Z90.49 ACQUIRED ABSENCE OF OTHER SPECIFIED PART 04/12/2019 ROBERT JAMISON APRN Ot Z90.710 ACQUIRED ABSENCE OF BOTH CERVIX AND UTER 04/12/2019 ROBERT JAMISON APRN Ot 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 Procedures Code Description Performed By Per audelia On 00.40 PROC EDURE ON SINGLE VESSEL 11/23/2011 38.12 HEAD NECK ENDARTER NEC 11/23/[id number] OF L HIP JT, FEMORAL WITH SYNTH 07/03/2018 [id number] EX CISION OF LEFT UPPER FEMUR, OPEN APPRO 08/07/2018 Results Test Result Range Comprehensive metabolic panel - 02/14/16 08:23 Serum or plasma sodium measurement (moles/volume) 139 mmol/L 135-145 Serum or plasma potassium measurement (moles/volume) 4.1 mmol/L 3.6-5.0 Serum or plasma chloride measurement (moles/volume) 107 mmol/L 98-107 Carbon dioxide 20 mmol/L 21-32 Serum or plasma anion gap determination (moles/volume) 12 mmol/L 5-14 Serum or plasma urea nitrogen measurement (mass/volume ) 9 mg/dL 7-18 Serum or plasma creatinine measurement (mass/volume) 0.65 mg/dL 0.60-1.30 Serum or plasma urea nitrogen/creatinine mass ratio 14 NRG Serum or plasma creatinine measurement w ith calculation of estimated glomerular filtration rate > NRG Serum or plasma glucose measurement (mass/volume) 88 mg/dL 70-105 Serum or plasma calcium measurement (mass/volume) 8.9 mg/dL 8.5-10.1 Serum or plasma total bilirubin measurement (mass/volu me) 0.5 mg/dL 0.1-1.0 Serum or plasma alkaline phosphatase carlos surement (enzymatic activity/volume) 71 U/L 40-136 Serum or plasma aspartate aminotransfera se measurement (enzymatic activity/volume) 15 U/L 5-34 Serum or plasma alanine aminotransferase measurement (enzymatic activity/volume) 14 U/L 0-55 Serum or plasma protein measurement (mass/volume) 6.6 g/dL 6.4-8.2 Serum or plasma albumin measurement (mass/volume) 4.0 g/dL 3.2-4.5 Lipid 1996 panel - 02/14/16 08:23 Serum or plasma triglyceride measurement (mass/volume) 66 mg/dL <150 Serum or plasma cholesterol measurement (mass/volume) 144 mg/dL < 200 Serum or plasma cholesterol in HDL measurement (mass/v olume) 47 mg/dL 40-60 Cholesterol in LDL [mass/volume] in serum or plasma by direct assay 80 mg/dL 1-129 Serum or plasma cholesterol in VLDL measurement (mass/ volume) 13 mg/dL 5-40 Automated blood complete blood count (he mogram) panel - 02/02/17 10:58 Blood leukocytes automated count (number/volume) 12.4 10*3/uL 4.3-11.0 Blood erythrocytes automated count (number/volume) 7.28 10*6/uL 4.35-5.85 Venous blood hemoglobin measurement (mass/volume) 10.9 g/dL 11.5-16.0 Blood hematocrit (volume fraction) 39 % 35-52 Automated erythrocyte mean corpuscular volume 53 [ foz_us] 80-99 Automated erythrocyte mean corpuscular h emoglobin (mass per erythrocyte) 15 pg 25-34 Automated erythrocyte mean corpuscular h emoglobin concentration measurement (mass/volume) 28 g/dL 32-36 Automated erythrocyte distribution width ratio 27. 4 % 10.0- 14.5 Automated blood platelet count (count/volume) 693 10*3/uL 130-400 Automated blood platelet mean volume measurement T ASSISTANT PROFESSOR OF HISTORY 7.4- 10.4 PT panel in platelet poor plasma by coag ulation assay - 02/02/17 11:00 Prothrombin time (PT) in platelet poor plasma by coagu lation assay 12.5 s 12.2-14.7 INR in platelet poor plasma or blood by coagulation as say 0.9 0.8-1.4 Activated partial thromboplastin time (a PTT) in platelet poor plasma bycoagulation assay - 02/02/17 11:00 Activated partial thromboplastin time (a PTT) in platelet poor plasma bycoagulation assay 20 s 24-35 Methicillin resistant Staphylococcus aur eus (MRSA) screening culture - 02/02/17 11:35 Methicillin resistant Staphylococcus aureus (MRSA) scr eening culture NEG NRG Capillary blood glucose measurement by g lucometer (mass/volume) - 02/02/17 11:42 Capillary blood glucose measurement by glucometer (mas s/volume) 149 mg/dL 70-110 Complete blood count (CBC) with automate d white blood cell (WBC) differential - 02/03/17 15:05 Blood leukocytes automated count (number/volume) 12.8 10*3/uL 4.3-11.0 Blood erythrocytes automated count (number/volume) 6.81 10*6/uL 4.35-5.85 Venous blood hemoglobin measurement (mass/volume) 10.4 g/dL 11.5-16.0 Blood hematocrit (volume fraction) 36 % 35-52 Automated erythrocyte mean corpuscular volume 53 [ foz_us] 80-99 Automated erythrocyte mean corpuscular h emoglobin (mass per erythrocyte) 15 pg 25-34 Automated erythrocyte mean corpuscular h emoglobin concentration measurement (mass/volume) 29 g/dL 32-36 Automated erythrocyte distribution width ratio 26. 8 % 10.0- 14.5 Automated blood platelet count (count/volume) 624 10*3/uL 130-400 Automated blood neutrophils/100 leukocytes 76 % 42-75 Automated blood lymphocytes/100 leukocytes 11 % 12-44 Blood monocytes/100 leukocytes 9 % 0-12 Automated blood eosinophils/100 leukocytes 2 % 0-10 Automated blood basophils/100 leukocytes 1 % 0-10 Blood neutrophils automated count (number/volume) 9.8 10*3 1.8-7.8 Blood lymphocytes automated count (number/volume) 1.4 10*3 1.0-4.0 Blood monocytes automated count (number/volume) 1. 2 10*3 0.0-1.0 Automated eosinophil count 0.2 10*3/uL 0 .0-0.3 Automated blood basophil count (count/volume) 0.2 10*3/uL 0.0-0.1 Comprehensive metabolic panel - 02/03/17 15:05 Serum or plasma sodium measurement (moles/volume) 133 mmol/L 135-145 Serum or plasma potassium measurement (moles/volume) 4.1 mmol/L 3.6-5.0 Serum or plasma chloride measurement (moles/volume) 101 mmol/L 98-107 Carbon dioxide 22 mmol/L 21-32 Serum or plasma anion gap determination (moles/volume) 10 mmol/L 5-14 Serum or plasma urea nitrogen measurement (mass/volume ) 15 mg/dL 7-18 Serum or plasma creatinine measurement (mass/volume) 0.74 mg/dL 0.60-1.30 Serum or plasma urea nitrogen/creatinine mass ratio 20 NRG Serum or plasma creatinine measurement w ith calculation of estimated glomerular filtration rate > NRG Serum or plasma glucose measurement (mass/volume) 154 mg/dL 70-105 Serum or plasma calcium measurement (mass/volume) 9.2 mg/dL 8.5-10.1 Serum or plasma total bilirubin measurement (mass/volu me) 0.5 mg/dL 0.1-1.0 Serum or plasma alkaline phosphatase carlos surement (enzymatic activity/volume) 127 U/L 40-136 Serum or plasma aspartate aminotransfera se measurement (enzymatic activity/volume) 22 U/L 5-34 Serum or plasma alanine aminotransferase measurement (enzymatic activity/volume) 15 U/L 0-55 Serum or plasma protein measurement (mass/volume) 7.2 g/dL 6.4-8.2 Serum or plasma albumin measurement (mass/volume) 3.9 g/dL 3.2-4.5 Complete urinalysis with reflex to cultu re - 02/03/17 17:19 Urine color determination OTHER NRG Urine clarity determination CLOUDY NR G Urine pH measurement by test strip 6 5-9 Specific gravity of urine by test strip 1.020 1.016-1.022 Urine protein assay by test strip, semi-quantitative 3+ NEGATIVE Urine glucose detection by automated test strip 4+ NEGATIVE Erythrocytes detection in urine sediment by light micr oscopy 4+ NEGATIVE Urine ketones detection by automated test strip 2+ NEGATIVE Urine nitrite detection by test strip NEGATIVE NEGATIVE Urine total bilirubin detection by test strip NEGA TIVE NEGATIVE Urine urobilinogen measurement by automated test strip (mass/volume) 1 mg/dL NORMAL Urine leukocyte esterase detection by dipstick 3+ NEGATIVE Automated urine sediment erythrocyte cou nt by microscopy (number/high power field) TNTC NRG Automated urine sediment leukocyte count by microscopy (number/high power field) TNTC NRG Bacteria detection in urine sediment by light microsco py MODERATE NRG Crystals detection in urine sediment by light microsco py NONE NRG Casts detection in urine sediment by light microscopy NONE NRG Mucus detection in urine sediment by light microscopy NEGATIVE NRG Complete urinalysis with reflex to culture YES NRG Bacterial urine culture - 02/03/17 17:19 URINE CULTURE RESULTS <10,000/ML NRG Capillary blood glucose measurement by g lucometer (mass/volume) - 02/03/17 22:11 Capillary blood glucose measurement by glucometer (mas s/volume) 166 mg/dL 70-110 Capillary blood glucose measurement by g lucometer (mass/volume) - 02/04/17 06:24 Capillary blood glucose measurement by glucometer (mas s/volume) 115 mg/dL 70-110 Complete blood count (CBC) with automate d white blood cell (WBC) differential - 02/04/17 06:37 Blood leukocytes automated count (number/volume) 12.2 10*3/uL 4.3-11.0 Blood erythrocytes automated count (number/volume) 6.01 10*6/uL 4.35-5.85 Venous blood hemoglobin measurement (mass/volume) 9.2 g/dL 11.5-16.0 Blood hematocrit (volume fraction) 33 % 35-52 Automated erythrocyte mean corpuscular volume 54 [ foz_us] 80-99 Automated erythrocyte mean corpuscular h emoglobin (mass per erythrocyte) 15 pg 25-34 Automated erythrocyte mean corpuscular h emoglobin concentration measurement (mass/volume) 28 g/dL 32-36 Automated erythrocyte distribution width ratio 26. 2 % 10.0- 14.5 Automated blood platelet count (count/volume) 590 10*3/uL 130-400 Automated blood platelet mean volume measurement T ASSISTANT PROFESSOR OF HISTORY 7.4- 10.4 Automated blood neutrophils/100 leukocytes 71 % 42-75 Automated blood lymphocytes/100 leukocytes 17 % 12-44 Blood monocytes/100 leukocytes 8 % 0-12 Automated blood eosinophils/100 leukocytes 2 % 0-10 Automated blood basophils/100 leukocytes 2 % 0-10 Blood neutrophils automated count (number/volume) 8.7 10*3 1.8-7.8 Blood lymphocytes automated count (number/volume) 2.1 10*3 1.0-4.0 Blood monocytes automated count (number/volume) 1. 0 10*3 0.0-1.0 Automated eosinophil count 0.3 10*3/uL 0 .0-0.3 Automated blood basophil count (count/volume) 0.2 10*3/uL 0.0-0.1 Comprehensive metabolic panel - 02/04/17 06:37 Serum or plasma sodium measurement (moles/volume) 137 mmol/L 135-145 Serum or plasma potassium measurement (moles/volume) 3.9 mmol/L 3.6-5.0 Serum or plasma chloride measurement (moles/volume) 105 mmol/L 98-107 Carbon dioxide 19 mmol/L 21-32 Serum or plasma anion gap determination (moles/volume) 13 mmol/L 5-14 Serum or plasma urea nitrogen measurement (mass/volume ) 8 mg/dL 7-18 Serum or plasma creatinine measurement (mass/volume) 0.61 mg/dL 0.60-1.30 Serum or plasma urea nitrogen/creatinine mass ratio 13 NRG Serum or plasma creatinine measurement w ith calculation of estimated glomerular filtration rate > NRG Serum or plasma glucose measurement (mass/volume) 100 mg/dL 70-105 Serum or plasma calcium measurement (mass/volume) 8.8 mg/dL 8.5-10.1 Serum or plasma total bilirubin measurement (mass/volu me) 0.5 mg/dL 0.1-1.0 Serum or plasma alkaline phosphatase carlos surement (enzymatic activity/volume) 105 U/L 40-136 Serum or plasma aspartate aminotransfera se measurement (enzymatic activity/volume) 16 U/L 5-34 Serum or plasma alanine aminotransferase measurement (enzymatic activity/volume) 13 U/L 0-55 Serum or plasma protein measurement (mass/volume) 6.4 g/dL 6.4-8.2 Serum or plasma albumin measurement (mass/volume) 3.6 g/dL 3.2-4.5 Capillary blood glucose measurement by g lucometer (mass/volume) - 02/04/17 11:03 Capillary blood glucose measurement by glucometer (mas s/volume) 179 mg/dL 70-110 Capillary blood glucose measurement by g lucometer (mass/volume) - 02/04/17 15:38 Capillary blood glucose measurement by glucometer (mas s/volume) 141 mg/dL 70-110 Capillary blood glucose measurement by g lucometer (mass/volume) - 02/04/17 20:33 Capillary blood glucose measurement by glucometer (mas s/volume) 208 mg/dL 70-110 Capillary blood glucose measurement by g lucometer (mass/volume) - 02/05/17 05:03 Capillary blood glucose measurement by glucometer (mas s/volume) 107 mg/dL 70-110 Complete blood count (CBC) with automate d white blood cell (WBC) differential - 02/05/17 06:13 Blood leukocytes automated count (number/volume) 11.8 10*3/uL 4.3-11.0 Blood erythrocytes automated count (number/volume) 6.32 10*6/uL 4.35-5.85 Venous blood hemoglobin measurement (mass/volume) 9.7 g/dL 11.5-16.0 Blood hematocrit (volume fraction) 34 % 35-52 Automated erythrocyte mean corpuscular volume 54 [ foz_us] 80-99 Automated erythrocyte mean corpuscular h emoglobin (mass per erythrocyte) 15 pg 25-34 Automated erythrocyte mean corpuscular h emoglobin concentration measurement (mass/volume) 28 g/dL 32-36 Automated erythrocyte distribution width ratio 26. 6 % 10.0- 14.5 Automated blood platelet count (count/volume) 576 10*3/uL 130-400 Automated blood platelet mean volume measurement T ASSISTANT PROFESSOR OF HISTORY 7.4- 10.4 Automated blood neutrophils/100 leukocytes 71 % 42-75 Automated blood lymphocytes/100 leukocytes 17 % 12-44 Blood monocytes/100 leukocytes 9 % 0-12 Automated blood eosinophils/100 leukocytes 2 % 0-10 Automated blood basophils/100 leukocytes 1 % 0-10 Blood neutrophils automated count (number/volume) 8.3 10*3 1.8-7.8 Blood lymphocytes automated count (number/volume) 2.0 10*3 1.0-4.0 Blood monocytes automated count (number/volume) 1. 1 10*3 0.0-1.0 Automated eosinophil count 0.3 10*3/uL 0 .0-0.3 Automated blood basophil count (count/volume) 0.1 10*3/uL 0.0-0.1 Comprehensive metabolic panel - 02/05/17 06:13 Serum or plasma sodium measurement (moles/volume) 138 mmol/L 135-145 Serum or plasma potassium measurement (moles/volume) 3.7 mmol/L 3.6-5.0 Serum or plasma chloride measurement (moles/volume) 105 mmol/L 98-107 Carbon dioxide 23 mmol/L 21-32 Serum or plasma anion gap determination (moles/volume) 10 mmol/L 5-14 Serum or plasma urea nitrogen measurement (mass/volume ) 7 mg/dL 7-18 Serum or plasma creatinine measurement (mass/volume) 0.55 mg/dL 0.60-1.30 Serum or plasma urea nitrogen/creatinine mass ratio 13 NRG Serum or plasma creatinine measurement w ith calculation of estimated glomerular filtration rate > NRG Serum or plasma glucose measurement (mass/volume) 97 mg/dL 70-105 Serum or plasma calcium measurement (mass/volume) 9.3 mg/dL 8.5-10.1 Serum or plasma total bilirubin measurement (mass/volu me) 0.4 mg/dL 0.1-1.0 Serum or plasma alkaline phosphatase carlos surement (enzymatic activity/volume) 111 U/L 40-136 Serum or plasma aspartate aminotransfera se measurement (enzymatic activity/volume) 19 U/L 5-34 Serum or plasma alanine aminotransferase measurement (enzymatic activity/volume) 12 U/L 0-55 Serum or plasma protein measurement (mass/volume) 6.6 g/dL 6.4-8.2 Serum or plasma albumin measurement (mass/volume) 3.6 g/dL 3.2-4.5 Capillary blood glucose measurement by g lucometer (mass/volume) - 02/05/17 10:52 Capillary blood glucose measurement by glucometer (mas s/volume) 128 mg/dL 70-110 Whole blood basic metabolic panel - 02/07 12/24 11:43 Serum or plasma sodium measurement (moles/volume) 136 mmol/L 135-145 Serum or plasma potassium measurement (moles/volume) 3.7 mmol/L 3.6-5.0 Serum or plasma chloride measurement (moles/volume) 102 mmol/L 98-107 Carbon dioxide 19 mmol/L 21-32 Serum or plasma anion gap determination (moles/volume) 15 mmol/L 5-14 Serum or plasma urea nitrogen measurement (mass/volume ) 7 mg/dL 7-18 Serum or plasma creatinine measurement (mass/volume) 0.64 mg/dL 0.60-1.30 Serum or plasma urea nitrogen/creatinine mass ratio 11 NRG Serum or plasma creatinine measurement w ith calculation of estimated glomerular filtration rate > NRG Serum or plasma glucose measurement (mass/volume) 158 mg/dL 70-105 Serum or plasma calcium measurement (mass/volume) 9.7 mg/dL 8.5-10.1 Comprehensive metabolic panel - 03/02/17 08:45 Serum or plasma sodium measurement (moles/volume) 139 mmol/L 135-145 Serum or plasma potassium measurement (moles/volume) 5.3 mmol/L 3.6-5.0 Serum or plasma chloride measurement (moles/volume) 105 mmol/L 98-107 Carbon dioxide 22 mmol/L -32 Serum or plasma anion gap determination (moles/volume) 12 mmol/L 5-14 Serum or plasma urea nitrogen measurement (mass/volume ) 7 mg/dL 7-18 Serum or plasma creatinine measurement (mass/volume) 0.66 mg/dL 0.60-1.30 Serum or plasma urea nitrogen/creatinine mass ratio 11 NRG Serum or plasma creatinine measurement w ith calculation of estimated glomerular filtration rate > NRG Serum or plasma glucose measurement (mass/volume) 70 mg/dL 70-105 Serum or plasma calcium measurement (mass/volume) 9.4 mg/dL 8.5-10.1 Serum or plasma total bilirubin measurement (mass/volu me) 0.7 mg/dL 0.1-1.0 Serum or plasma alkaline phosphatase carlos surement (enzymatic activity/volume) 90 U/L 40-136 Serum or plasma aspartate aminotransfera se measurement (enzymatic activity/volume) 29 U/L 5-34 Serum or plasma alanine aminotransferase measurement (enzymatic activity/volume) 13 U/L 0-55 Serum or plasma protein measurement (mass/volume) 7.4 g/dL 6.4-8.2 Serum or plasma albumin measurement (mass/volume) 3.8 g/dL 3.2-4.5 Magnesium - 03/02/17 08:45 Magnesium 1.7 mg/dL 1.8-2.4 Complete blood count (CBC) with automate d white blood cell (WBC) differential - 03/02/17 08:45 Blood leukocytes automated count (number/volume) 10.5 10*3/uL 4.3-11.0 Blood erythrocytes automated count (number/volume) 6.93 10*6/uL 4.35-5.85 Venous blood hemoglobin measurement (mass/volume) 10.7 g/dL 11.5-16.0 Blood hematocrit (volume fraction) 38 % 35-52 Automated erythrocyte mean corpuscular volume 55 [ foz_us] 80-99 Automated erythrocyte mean corpuscular h emoglobin (mass per erythrocyte) 15 pg 25-34 Automated erythrocyte mean corpuscular h emoglobin concentration measurement (mass/volume) 28 g/dL 32-36 Automated erythrocyte distribution width ratio 27. 4 % 10.0- 14.5 Automated blood platelet count (count/volume) 425 10*3/uL 130-400 Automated blood platelet mean volume measurement T ASSISTANT PROFESSOR OF HISTORY 7.4- 10.4 Automated blood neutrophils/100 leukocytes 62 % 42-75 Automated blood lymphocytes/100 leukocytes 26 % 12-44 Blood monocytes/100 leukocytes 8 % 0-12 Automated blood eosinophils/100 leukocytes 2 % 0-10 Automated blood basophils/100 leukocytes 2 % 0-10 Blood neutrophils automated count (number/volume) 6.5 10*3 1.8-7.8 Blood lymphocytes automated count (number/volume) 2.7 10*3 1.0-4.0 Blood monocytes automated count (number/volume) 0. 9 10*3 0.0-1.0 Automated eosinophil count 0.2 10*3/uL 0 .0-0.3 Automated blood basophil count (count/volume) 0.2 10*3/uL 0.0-0.1 Blood blood smear finding identification by light micr oscopy YES NRG Blood manual differential performed dete ction - 03/02/17 08:45 Blood anisocytosis detection by light microscopy M ARKED NRG Blood ovalocytes detection by light microscopy MOD ERATE NRG Blood poikilocytosis detection by light microscopy MARKED NRG Blood hypochromia detection by light microscopy MO DERATE NRG Blood microcytes detection by light microscopy MAR KED NRG Blood rouleaux detection by light microscopy SLIGH T NRG Blood target cells detection by light microscopy M ARKED NRG Complete urinalysis with reflex to cultu re - 03/02/17 10:40 Urine color determination YELLOW NRG Urine clarity determination CLEAR NR G Urine pH measurement by test strip 7 5-9 Specific gravity of urine by test strip 1.010 1.016-1.022 Urine protein assay by test strip, semi-quantitative NEGATIVE NEGATIVE Urine glucose detection by automated test strip 4+ NEGATIVE Erythrocytes detection in urine sediment by light micr oscopy NEGATIVE NEGATIVE Urine ketones detection by automated test strip NE GATIVE NEGATIVE Urine nitrite detection by test strip NEGATIVE NEGATIVE Urine total bilirubin detection by test strip NEGA TIVE NEGATIVE Urine urobilinogen measurement by automated test strip (mass/volume) NORMAL NORMAL Urine leukocyte esterase detection by dipstick 3+ NEGATIVE Automated urine sediment erythrocyte cou nt by microscopy (number/high power field) [HPF] NRG Automated urine sediment leukocyte count by microscopy (number/high power field) [HPF] NRG Bacteria detection in urine sediment by light microsco py TRACE NRG Squamous epithelial cells detection in u rine sediment by light microscopy >50 NRG Crystals detection in urine sediment by light microsco py NONE NRG Casts detection in urine sediment by light microscopy NONE NRG Mucus detection in urine sediment by light microscopy NEGATIVE NRG Complete urinalysis with reflex to culture NO NRG Complete urinalysis with reflex to cultu re - 04/08/17 08:35 Urine color determination YELLOW NRG Urine clarity determination CLEAR NR G Urine pH measurement by test strip 7 5-9 Specific gravity of urine by test strip 1.015 1.016-1.022 Urine protein assay by test strip, semi-quantitative NEGATIVE NEGATIVE Urine glucose detection by automated test strip 4+ NEGATIVE Erythrocytes detection in urine sediment by light micr oscopy NEGATIVE NEGATIVE Urine ketones detection by automated test strip NE GATIVE NEGATIVE Urine nitrite detection by test strip NEGATIVE NEGATIVE Urine total bilirubin detection by test strip NEGA TIVE NEGATIVE Urine urobilinogen measurement by automated test strip (mass/volume) NORMAL NORMAL Urine leukocyte esterase detection by dipstick 1+ NEGATIVE Automated urine sediment erythrocyte cou nt by microscopy (number/high power field) NONE NRG Automated urine sediment leukocyte count by microscopy (number/high power field) [HPF] NRG Bacteria detection in urine sediment by light microsco py TRACE NRG Squamous epithelial cells detection in u rine sediment by light microscopy 5-10 NRG Crystals detection in urine sediment by light microsco py NONE NRG Casts detection in urine sediment by light microscopy NONE NRG Mucus detection in urine sediment by light microscopy NEGATIVE NRG Complete urinalysis with reflex to culture YES NRG Yeast detection in urine sediment by light microscopy LARGE NRG Bacterial urine culture - 04/08/17 08:35 Bacterial urine culture [id number] NRG COLONY COUNT >100,000/ML NRG FTX;REPORTABLE PLUS, NRG URINE CULTURE RESULTS <10,000/ML NRG FREE TEXT ENTRY 2 MIXED GRAM POSITIVES LESS NRG Automated blood complete blood count (he mogram) panel - 04/20/17 09:12 Blood leukocytes automated count (number/volume) 9.6 10*3/uL 4.3-11.0 Blood erythrocytes automated count (number/volume) 6.16 10*6/uL 4.35-5.85 Venous blood hemoglobin measurement (mass/volume) 9.4 g/dL 11.5-16.0 Blood hematocrit (volume fraction) 34 % 35-52 Automated erythrocyte mean corpuscular volume 55 [ foz_us] 80-99 Automated erythrocyte mean corpuscular h emoglobin (mass per erythrocyte) 15 pg 25-34 Automated erythrocyte mean corpuscular h emoglobin concentration measurement (mass/volume) 28 g/dL 32-36 Automated erythrocyte distribution width ratio 25. 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 7.4- 10.4 Comprehensive metabolic panel - 04/20/17 09:12 Serum or plasma sodium measurement (moles/volume) 138 mmol/L 135-145 Serum or plasma potassium measurement (moles/volume) 3.9 mmol/L 3.6-5.0 Serum or plasma chloride measurement (moles/volume) 102 mmol/L 98-107 Carbon dioxide 25 mmol/L 21-32 Serum or plasma anion gap determination (moles/volume) 11 mmol/L 5-14 Serum or plasma urea nitrogen measurement (mass/volume ) 18 mg/dL 7-18 Serum or plasma creatinine measurement (mass/volume) 0.84 mg/dL 0.60-1.30 Serum or plasma urea nitrogen/creatinine mass ratio 21 NRG Serum or plasma creatinine measurement w ith calculation of estimated glomerular filtration rate > NRG Serum or plasma glucose measurement (mass/volume) 261 mg/dL 70-105 Serum or plasma calcium measurement (mass/volume) 8.8 mg/dL 8.5-10.1 Serum or plasma total bilirubin measurement (mass/volu me) 0.3 mg/dL 0.1-1.0 Serum or plasma alkaline phosphatase carlos surement (enzymatic activity/volume) 146 U/L 40-136 Serum or plasma aspartate aminotransfera se measurement (enzymatic activity/volume) 36 U/L 5-34 Serum or plasma alanine aminotransferase measurement (enzymatic activity/volume) 41 U/L 0-55 Serum or plasma protein measurement (mass/volume) 7.1 g/dL 6.4-8.2 Serum or plasma albumin measurement (mass/volume) 3.8 g/dL 3.2-4.5 Complete urinalysis with reflex to cultu re - 04/20/17 10:20 Urine color determination YELLOW NRG Urine clarity determination SLIGHTLY CLOUDY NRG Urine pH measurement by test strip 6 5-9 Specific gravity of urine by test strip 1.010 1.016-1.022 Urine protein assay by test strip, semi-quantitative 3+ NEGATIVE Urine glucose detection by automated test strip 4+ NEGATIVE Erythrocytes detection in urine sediment by light micr oscopy 3+ NEGATIVE Urine ketones detection by automated test strip NE GATIVE NEGATIVE Urine nitrite detection by test strip NEGATIVE NEGATIVE Urine total bilirubin detection by test strip NEGA TIVE NEGATIVE Urine urobilinogen measurement by automated test strip (mass/volume) NORMAL NORMAL Urine leukocyte esterase detection by dipstick 3+ NEGATIVE Automated urine sediment erythrocyte cou nt by microscopy (number/high power field) [HPF] NRG Automated urine sediment leukocyte count by microscopy (number/high power field) TNTC NRG Bacteria detection in urine sediment by light microsco py LARGE NRG Squamous epithelial cells detection in u rine sediment by light microscopy 5-10 NRG Crystals detection in urine sediment by light microsco py NONE NRG Casts detection in urine sediment by light microscopy NONE NRG Mucus detection in urine sediment by light microscopy NEGATIVE NRG Complete urinalysis with reflex to culture YES NRG Bacterial urine culture - 04/20/17 10:20 Bacterial urine culture SEE COMMEN NRG COLONY COUNT . NRG Bacterial susceptibility panel - 7 10:20 Oxacillin susceptibility test by minimum inhibitory co ncentration >= NRG Gentamicin susceptibility test by minimum inhibitory c oncentration <= NRG Trimethoprim/sulfamethoxazole susceptibi lity test by minimum inhibitoryconcentration 160 NRG Vancomycin susceptibility test by minimum inhibitory c oncentration 1 NRG Levofloxacin susceptibility test by minimum inhibitory concentration >= NRG Rifampin susceptibility test by minimum inhibitory con centration <= NRG Tetracycline susceptibility test by minimum inhibitory concentration <= NRG Ciprofloxacin susceptibility test by minimum inhibitor y concentration R NRG Complete blood count (CBC) with automate d white blood cell (WBC) differential - 06/08/18 10:50 Blood leukocytes automated count (number/volume) 8.7 10*3/uL 4.3-11.0 Blood erythrocytes automated count (number/volume) 6.89 10*6/uL 4.35-5.85 Venous blood hemoglobin measurement (mass/volume) 12.3 g/dL 11.5-16.0 Blood hematocrit (volume fraction) 40 % 35-52 Automated erythrocyte mean corpuscular volume 59 [ foz_us] 80-99 Automated erythrocyte mean corpuscular h emoglobin (mass per erythrocyte) 18 pg 25-34 Automated erythrocyte mean corpuscular h emoglobin concentration measurement (mass/volume) 31 g/dL 32-36 Automated erythrocyte distribution width ratio 26. 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 9 10*3 0.0-1.0 Automated eosinophil count 0.2 10*3/uL 0 .0-0.3 Automated blood basophil count (count/volume) 0.1 10*3/uL 0.0-0.1 Serum or plasma C reactive protein measu rement (mass/volume) - 06/08/18 10:50 Serum or plasma C reactive protein measurement (mass/v olume) 0.59 mg/dL 0.00-0.50 Complete urinalysis with reflex to cultu re - 06/10/18 08:09 Urine color determination YELLOW NRG Urine clarity determination CLEAR NR G Urine pH measurement by test strip 6 5-9 Specific gravity of urine by test strip 1.015 1.016-1.022 Urine protein assay by test strip, semi-quantitative 1+ NEGATIVE Urine glucose detection by automated test strip 4+ NEGATIVE Erythrocytes detection in urine sediment by light micr oscopy 2+ NEGATIVE Urine ketones detection by automated test strip NE GATIVE NEGATIVE Urine nitrite detection by test strip NEGATIVE NEGATIVE Urine total bilirubin detection by test strip NEGA TIVE NEGATIVE Urine urobilinogen measurement by automated test strip (mass/volume) NORMAL NORMAL Urine leukocyte esterase detection by dipstick 1+ NEGATIVE Automated urine sediment erythrocyte cou nt by microscopy (number/high power field) [HPF] NRG Automated urine sediment leukocyte count by microscopy (number/high power field) [HPF] NRG Bacteria detection in urine sediment by light microsco py NEGATIVE NRG Squamous epithelial cells detection in u rine sediment by light microscopy 2-5 NRG Crystals detection in urine sediment by light microsco py NONE NRG Casts detection in urine sediment by light microscopy NONE NRG Mucus detection in urine sediment by light microscopy NEGATIVE NRG Complete urinalysis with reflex to culture YES NRG Bacterial urine culture - 06/10/18 08:09 Bacterial urine culture SEE REPORT NRG COLONY COUNT . NRG Complete urinalysis with reflex to cultu re - 06/15/18 08:20 Urine color determination YELLOW NRG Urine clarity determination CLEAR NR G Urine pH measurement by test strip 6 5-9 Specific gravity of urine by test strip 1.015 1.016-1.022 Urine protein assay by test strip, semi-quantitative 2+ NEGATIVE Urine glucose detection by automated test strip 4+ NEGATIVE Erythrocytes detection in urine sediment by light micr oscopy 2+ NEGATIVE Urine ketones detection by automated test strip NE GATIVE NEGATIVE Urine nitrite detection by test strip NEGATIVE NEGATIVE Urine total bilirubin detection by test strip NEGA TIVE NEGATIVE Urine urobilinogen measurement by automated test strip (mass/volume) NORMAL NORMAL Urine leukocyte esterase detection by dipstick 1+ NEGATIVE Automated urine sediment erythrocyte cou nt by microscopy (number/high power field) [HPF] NRG Automated urine sediment leukocyte count by microscopy (number/high power field) [HPF] NRG Bacteria detection in urine sediment by light microsco py FEW NRG Squamous epithelial cells detection in u rine sediment by light microscopy 5-10 NRG Crystals detection in urine sediment by light microsco py NONE NRG Casts detection in urine sediment by light microscopy NONE NRG Mucus detection in urine sediment by light microscopy NEGATIVE NRG Complete urinalysis with reflex to culture YES NRG Bacterial urine culture - 06/15/18 08:20 Bacterial urine culture SEE REPORT NRG COLONY COUNT . NRG Complete blood count (CBC) with automate d white blood cell (WBC) differential - 07/03/18 16:30 Blood leukocytes automated count (number/volume) 17.0 10*3/uL 4.3-11.0 Blood erythrocytes automated count (number/volume) 6.49 10*6/uL 4.35-5.85 Venous blood hemoglobin measurement (mass/volume) 11.8 g/dL 11.5-16.0 Blood hematocrit (volume fraction) 38 % 35-52 Automated erythrocyte mean corpuscular volume 59 [ foz_us] 80-99 Automated erythrocyte mean corpuscular h emoglobin (mass per erythrocyte) 18 pg 25-34 Automated erythrocyte mean corpuscular h emoglobin concentration measurement (mass/volume) 31 g/dL 32-36 Automated erythrocyte distribution width ratio 25. 4 % 10.0- 14.5 Automated blood platelet count (count/volume) 485 10*3/uL [...] 10*3 1.0-4.0 Blood monocytes automated count (number/volume) 1. 5 10*3 0.0-1.0 Automated eosinophil count 0.1 10*3/uL 0 .0-0.3 Automated blood basophil count (count/volume) 0.1 10*3/uL 0.0-0.1 PT panel in platelet poor plasma by coag ulation assay - 07/03/18 16:30 Prothrombin time (PT) in platelet poor plasma by coagu lation assay 12.9 s 12.2-14.7 INR in platelet poor plasma or blood by coagulation as say 1.0 0.8-1.4 Activated partial thromboplastin time (a PTT) in platelet poor plasma bycoagulation assay - 07/03/18 16:30 Activated partial thromboplastin time (a PTT) in platelet poor plasma bycoagulation assay 29 s 24-35 Comprehensive metabolic panel - 07/03/18 16:30 Serum or plasma sodium measurement (moles/volume) 135 mmol/L 135-145 Serum or plasma potassium measurement (moles/volume) 4.3 mmol/L 3.6-5.0 Serum or plasma chloride measurement (moles/volume) 102 mmol/L 98-107 Carbon dioxide 22 mmol/L 21-32 Serum or plasma anion gap determination (moles/volume) 11 mmol/L 5-14 Serum or plasma urea nitrogen measurement (mass/volume ) 14 mg/dL 7-18 Serum or plasma creatinine measurement (mass/volume) 0.72 mg/dL 0.60-1.30 Serum or plasma urea nitrogen/creatinine mass ratio 19 NRG Serum or plasma creatinine measurement w ith calculation of estimated glomerular filtration rate > NRG Serum or plasma glucose measurement (mass/volume) 171 mg/dL 70-105 Serum or plasma calcium measurement (mass/volume) 9.6 mg/dL 8.5-10.1 Serum or plasma total bilirubin measurement (mass/volu me) 0.6 mg/dL 0.1-1.0 Serum or plasma alkaline phosphatase carlos surement (enzymatic activity/volume) 95 U/L 40-136 Serum or plasma aspartate aminotransfera se measurement (enzymatic activity/volume) 20 U/L 5-34 Serum or plasma alanine aminotransferase measurement (enzymatic activity/volume) 17 U/L 0-55 Serum or plasma protein measurement (mass/volume) 7.4 g/dL 6.4-8.2 Serum or plasma albumin measurement (mass/volume) 4.3 g/dL 3.2-4.5 CALCIUM CORRECTED 9.4 mg/dL 8.5-10.1 Blood manual differential performed dete ction - 07/03/18 16:30 Blood monocytes/100 leukocytes 5 % NRG Manual blood segmented neutrophils/100 leukocytes 89 % NRG Blood band neutrophils/100 leukocytes 0 % NRG Manual blood lymphocytes/100 leukocytes 5 % NRG Manual eosinophils/100 leukocytes in nose 0 % NRG Manual blood basophils/100 leukocytes 1 % NRG Blood polychromasia detection by light microscopy SLIGHT NRG Blood anisocytosis detection by light microscopy M ARKED NRG Blood hypochromia detection by light microscopy MA RKED NRG Blood microcytes detection by light microscopy MAR KED NRG Blood target cells detection by light microscopy S LIGHT NRG Blood spherocytes detection by light microscopy SL IGHT NRG Complete urinalysis with reflex to cultu re - 07/03/18 16:50 Urine color determination YELLOW NRG Urine clarity determination SLIGHTLY CLOUDY NRG Urine pH measurement by test strip 6.5 5-9 Specific gravity of urine by test strip 1.010 1.016-1.022 Urine protein assay by test strip, semi-quantitative 1+ NEGATIVE Urine glucose detection by automated test strip 4+ NEGATIVE Erythrocytes detection in urine sediment by light micr oscopy 2+ NEGATIVE Urine ketones detection by automated test strip NE GATIVE NEGATIVE Urine nitrite detection by test strip NEGATIVE NEGATIVE Urine total bilirubin detection by test strip NEGA TIVE NEGATIVE Urine urobilinogen measurement by automated test strip (mass/volume) NORMAL NORMAL Urine leukocyte esterase detection by dipstick 3+ NEGATIVE Automated urine sediment erythrocyte cou nt by microscopy (number/high power field) [HPF] NRG Automated urine sediment leukocyte count by microscopy (number/high power field) [HPF] NRG Bacteria detection in urine sediment by light microsco py NEGATIVE NRG Squamous epithelial cells detection in u rine sediment by light microscopy 5-10 NRG Crystals detection in urine sediment by light microsco py NONE NRG Casts detection in urine sediment by light microscopy NONE NRG Mucus detection in urine sediment by light microscopy NEGATIVE NRG Complete urinalysis with reflex to culture YES NRG Bacterial urine culture - 07/03/18 16:50 Bacterial urine culture SEE COMMEN NRG COLONY COUNT . NRG FTX;REPORTABLE PREDOMINANCE OF NRG Methicillin resistant Staphylococcus aur eus (MRSA) screening culture - 07/03/18 18:04 Methicillin resistant Staphylococcus aureus (MRSA) scr eening culture NEG NRG RED CELLS LEUKO REDUCED AS1 - 07/03/18 1 8:08 RED CELLS LEUKO REDUCED AS1 N OT AVAILABLE NRG Blood type T Indirect antibody screen pa jesse - 07/03/18 18:08 ABO+Rh group BP NRG Transfusion band number [id number] NRG Blood group antibody screen NEGATIVE NR G Capillary blood glucose measurement by g lucometer (mass/volume) - 07/03/18 22:12 Capillary blood glucose measurement by glucometer (mas s/volume) 176 mg/dL 70-110 Capillary blood glucose measurement by g lucometer (mass/volume) - 07/04/18 07:55 Capillary blood glucose measurement by glucometer (mas s/volume) 288 mg/dL 70-110 Complete blood count (CBC) with automate d white blood cell (WBC) differential - 07/04/18 08:10 Blood leukocytes automated count (number/volume) 14.0 10*3/uL 4.3-11.0 Blood erythrocytes automated count (number/volume) 4.67 10*6/uL 4.35-5.85 Venous blood hemoglobin measurement (mass/volume) 8.4 g/dL 11.5-16.0 Blood hematocrit (volume fraction) 29 % 35-52 Automated erythrocyte mean corpuscular volume 62 [ foz_us] 80-99 Automated erythrocyte mean corpuscular h emoglobin (mass per erythrocyte) 18 pg 25-34 Automated erythrocyte mean corpuscular h emoglobin concentration measurement (mass/volume) 29 g/dL 32-36 Automated erythrocyte distribution width ratio 23. 9 % 10.0- 14.5 Automated blood platelet count (count/volume) 405 10*3/uL [...] 10*3 1.0-4.0 Blood monocytes automated count (number/volume) 1. 6 10*3 0.0-1.0 Automated eosinophil count 0.0 10*3/uL 0 .0-0.3 Automated blood basophil count (count/volume) 0.0 10*3/uL 0.0-0.1 Comprehensive metabolic panel - 07/04/18 08:10 Serum or plasma sodium measurement (moles/volume) 138 mmol/L 135-145 Serum or plasma potassium measurement (moles/volume) 4.6 mmol/L 3.6-5.0 Serum or plasma chloride measurement (moles/volume) 106 mmol/L 98-107 Carbon dioxide 21 mmol/L 21-32 Serum or plasma anion gap determination (moles/volume) 11 mmol/L 5-14 Serum or plasma urea nitrogen measurement (mass/volume ) 17 mg/dL 7-18 Serum or plasma creatinine measurement (mass/volume) 0.84 mg/dL 0.60-1.30 Serum or plasma urea nitrogen/creatinine mass ratio 20 NRG Serum or plasma creatinine measurement w ith calculation of estimated glomerular filtration rate > NRG Serum or plasma glucose measurement (mass/volume) 265 mg/dL 70-105 Serum or plasma calcium measurement (mass/volume) 8.4 mg/dL 8.5-10.1 Serum or plasma total bilirubin measurement (mass/volu me) 0.5 mg/dL 0.1-1.0 Serum or plasma alkaline phosphatase carlos surement (enzymatic activity/volume) 69 U/L 40-136 Serum or plasma aspartate aminotransfera se measurement (enzymatic activity/volume) 25 U/L 5-34 Serum or plasma alanine aminotransferase measurement (enzymatic activity/volume) 14 U/L 0-55 Serum or plasma protein measurement (mass/volume) 5.7 g/dL 6.4-8.2 Serum or plasma albumin measurement (mass/volume) 3.4 g/dL 3.2-4.5 CALCIUM CORRECTED 8.9 mg/dL 8.5-10.1 Capillary blood glucose measurement by g lucometer (mass/volume) - 07/04/18 11:36 Capillary blood glucose measurement by glucometer (mas s/volume) 323 mg/dL 70-110 Capillary blood glucose measurement by g lucometer (mass/volume) - 07/04/18 15:52 Capillary blood glucose measurement by glucometer (mas s/volume) 442 mg/dL 70-110 Capillary blood glucose measurement by g lucometer (mass/volume) - 07/04/18 20:18 Capillary blood glucose measurement by glucometer (mas s/volume) 400 mg/dL 70-110 Complete blood count (CBC) with automate d white blood cell (WBC) differential - 07/05/18 05:20 Blood leukocytes automated count (number/volume) 12.1 10*3/uL 4.3-11.0 Blood erythrocytes automated count (number/volume) 4.34 10*6/uL 4.35-5.85 Venous blood hemoglobin measurement (mass/volume) 7.7 g/dL 11.5-16.0 Blood hematocrit (volume fraction) 27 % 35-52 Automated erythrocyte mean corpuscular volume 61 [ foz_us] 80-99 Automated erythrocyte mean corpuscular h emoglobin (mass per erythrocyte) 18 pg 25-34 Automated erythrocyte mean corpuscular h emoglobin concentration measurement (mass/volume) 29 g/dL 32-36 Automated erythrocyte distribution width ratio 23. 5 % 10.0- 14.5 Automated blood platelet count (count/volume) 333 10*3/uL [...] 10*3 1.0-4.0 Blood monocytes automated count (number/volume) 2. 0 10*3 0.0-1.0 Automated eosinophil count 0.2 10*3/uL 0 .0-0.3 Automated blood basophil count (count/volume) 0.1 10*3/uL 0.0-0.1 Whole blood basic metabolic panel - 06/11 10/26 05:20 Serum or plasma sodium measurement (moles/volume) 135 mmol/L 135-145 Serum or plasma potassium measurement (moles/volume) 4.2 mmol/L 3.6-5.0 Serum or plasma chloride measurement (moles/volume) 104 mmol/L 98-107 Carbon dioxide 22 mmol/L 21-32 Serum or plasma anion gap determination (moles/volume) 9 mmol/L 5-14 Serum or plasma urea nitrogen measurement (mass/volume ) 14 mg/dL 7-18 Serum or plasma creatinine measurement (mass/volume) 0.71 mg/dL 0.60-1.30 Serum or plasma urea nitrogen/creatinine mass ratio 20 NRG Serum or plasma creatinine measurement w ith calculation of estimated glomerular filtration rate > NRG Serum or plasma glucose measurement (mass/volume) 163 mg/dL 70-105 Serum or plasma calcium measurement (mass/volume) 9.1 mg/dL 8.5-10.1 Capillary blood glucose measurement by g lucometer (mass/volume) - 07/05/18 11:34 Capillary blood glucose measurement by glucometer (mas s/volume) 201 mg/dL 70-110 Capillary blood glucose measurement by g lucometer (mass/volume) - 07/05/18 15:55 Capillary blood glucose measurement by glucometer (mas s/volume) 212 mg/dL 70-110 Capillary blood glucose measurement by g lucometer (mass/volume) - 07/05/18 20:00 Capillary blood glucose measurement by glucometer (mas s/volume) 181 mg/dL 70-110 Whole blood basic metabolic panel - 06/11 11/25 04:55 Serum or plasma sodium measurement (moles/volume) 137 mmol/L 135-145 Serum or plasma potassium measurement (moles/volume) 4.1 mmol/L 3.6-5.0 Serum or plasma chloride measurement (moles/volume) 103 mmol/L 98-107 Carbon dioxide 23 mmol/L 21-32 Serum or plasma anion gap determination (moles/volume) 11 mmol/L 5-14 Serum or plasma urea nitrogen measurement (mass/volume ) 8 mg/dL 7-18 Serum or plasma creatinine measurement (mass/volume) 0.55 mg/dL 0.60-1.30 Serum or plasma urea nitrogen/creatinine mass ratio 15 NRG Serum or plasma creatinine measurement w ith calculation of estimated glomerular filtration rate > NRG Serum or plasma glucose measurement (mass/volume) 66 mg/dL 70-105 Serum or plasma calcium measurement (mass/volume) 9.4 mg/dL 8.5-10.1 Automated blood complete blood count (he mogram) panel - 07/06/18 04:55 Blood leukocytes automated count (number/volume) 16.1 10*3/uL 4.3-11.0 Blood erythrocytes automated count (number/volume) 4.87 10*6/uL 4.35-5.85 Venous blood hemoglobin measurement (mass/volume) 9.6 g/dL 11.5-16.0 Blood hematocrit (volume fraction) 32 % 35-52 Automated erythrocyte mean corpuscular volume 65 [ foz_us] 80-99 Automated erythrocyte mean corpuscular h emoglobin (mass per erythrocyte) 20 pg 25-34 Automated erythrocyte mean corpuscular h emoglobin concentration measurement (mass/volume) 30 g/dL 32-36 Automated erythrocyte distribution width ratio 26. 5 % 10.0- 14.5 Automated blood platelet count (count/volume) 330 10*3/uL 130-400 Automated blood platelet mean volume measurement 10.4 [foz_us] 7.4-10.4 Capillary blood glucose measurement by g lucometer (mass/volume) - 07/06/18 05:17 Capillary blood glucose measurement by glucometer (mas s/volume) 74 mg/dL 70-110 Capillary blood glucose measurement by g lucometer (mass/volume) - 07/06/18 11:39 Capillary blood glucose measurement by glucometer (mas s/volume) 112 mg/dL 70-110 Gram stain microscopy - 07/17/18 22:27 Gram stain microscopy No bacteria seen NRG Bacteria identification in wound by cult ure - 07/17/18 22:27 Bacteria identification in wound by culture NSF NRG FREE TEXT EXTERNAL NO SUSCEPTIBILITIES SET UP NRG QUANTITY OF GROWTH Isolated NRG Complete urinalysis with reflex to cultu re - 07/20/18 15:53 Urine color determination YELLOW NRG Urine clarity determination VERY CLOUDY NRG Urine pH measurement by test strip 6 5-9 Specific gravity of urine by test strip 1.010 1.016-1.022 Urine protein assay by test strip, semi-quantitative 3+ NEGATIVE Urine glucose detection by automated test strip 4+ NEGATIVE Erythrocytes detection in urine sediment by light micr oscopy 5+ NEGATIVE Urine ketones detection by automated test strip NE GATIVE NEGATIVE Urine nitrite detection by test strip NEGATIVE NEGATIVE Urine total bilirubin detection by test strip NEGA TIVE NEGATIVE Urine urobilinogen measurement by automated test strip (mass/volume) NORMAL NORMAL Urine leukocyte esterase detection by dipstick 3+ NEGATIVE Automated urine sediment erythrocyte cou nt by microscopy (number/high power field) TNTC NRG Automated urine sediment leukocyte count by microscopy (number/high power field) TNTC NRG Bacteria detection in urine sediment by light microsco py MODERATE NRG Squamous epithelial cells detection in u rine sediment by light microscopy 10-25 NRG Crystals detection in urine sediment by light microsco py NONE NRG Casts detection in urine sediment by light microscopy NONE NRG Mucus detection in urine sediment by light microscopy NEGATIVE NRG Complete urinalysis with reflex to culture YES NRG Yeast detection in urine sediment by light microscopy LARGE NRG Complete blood count (CBC) with automate d white blood cell (WBC) differential - 07/20/18 16:21 Blood leukocytes automated count (number/volume) 9.3 10*3/uL 4.3-11.0 Blood erythrocytes automated count (number/volume) 5.10 10*6/uL 4.35-5.85 Venous blood hemoglobin measurement (mass/volume) 9.8 g/dL 11.5-16.0 Blood hematocrit (volume fraction) 34 % 35-52 Automated erythrocyte mean corpuscular volume 67 [ foz_us] 80-99 Automated erythrocyte mean corpuscular h emoglobin (mass per erythrocyte) 19 pg 25-34 Automated erythrocyte mean corpuscular h emoglobin concentration measurement (mass/volume) 29 g/dL 32-36 Automated erythrocyte distribution width ratio 30. 0 % 10.0- 14.5 Automated blood platelet count (count/volume) 601 10*3/uL [...] 10*3 1.0-4.0 Blood monocytes automated count (number/volume) 1. 0 10*3 0.0-1.0 Automated eosinophil count 0.1 10*3/uL 0 .0-0.3 Automated blood basophil count (count/volume) 0.1 10*3/uL 0.0-0.1 Blood lactic acid measurement (moles/vol ume) - 07/20/18 16:21 Blood lactic acid measurement [...] 5-14 Serum or plasma urea nitrogen measurement (mass/volume ) 10 mg/dL 7-18 Serum or plasma creatinine measurement (mass/volume) 0.63 mg/dL 0.60-1.30 Serum or plasma urea nitrogen/creatinine mass ratio 16 NRG Serum or plasma creatinine measurement w ith calculation of estimated glomerular filtration rate > NRG Serum or plasma glucose measurement (mass/volume) 130 mg/dL 70-105 Serum or plasma calcium measurement (mass/volume) 8.4 mg/dL 8.5-10.1 Serum or plasma total bilirubin measurement (mass/volu me) 0.6 mg/dL 0.1-1.0 Serum or plasma alkaline phosphatase carlos surement (enzymatic activity/volume) 88 U/L 40-136 Serum or plasma aspartate aminotransfera se measurement (enzymatic activity/volume) 25 U/L 5-34 Serum or plasma alanine aminotransferase measurement (enzymatic activity/volume) 17 U/L 0-55 Serum or plasma protein measurement (mass/volume) 6.2 g/dL 6.4-8.2 Serum or plasma albumin measurement (mass/volume) 3.2 g/dL 3.2-4.5 CALCIUM CORRECTED 9.0 mg/dL 8.5-10.1 Complete blood count (CBC) with automate d white blood cell (WBC) differential - 07/22/18 04:15 Blood leukocytes automated count (number/volume) 9.9 10*3/uL 4.3-11.0 Blood erythrocytes automated count (number/volume) 4.93 10*6/uL 4.35-5.85 Venous blood hemoglobin measurement (mass/volume) 9.7 g/dL 11.5-16.0 Blood hematocrit (volume fraction) 32 % 35-52 Automated erythrocyte mean corpuscular volume 66 [ foz_us] 80-99 Automated erythrocyte mean corpuscular h emoglobin (mass per erythrocyte) 20 pg 25-34 Automated erythrocyte mean corpuscular h emoglobin concentration measurement (mass/volume) 30 g/dL 32-36 Automated erythrocyte distribution width ratio 30. 1 % 10.0- 14.5 Automated blood platelet count (count/volume) 705 10*3/uL [...] 10*3 1.0-4.0 Blood monocytes automated count (number/volume) 1. 0 10*3 0.0-1.0 Automated eosinophil count 0.2 10*3/uL 0 .0-0.3 Automated blood basophil count (count/volume) 0.1 10*3/uL 0.0-0.1 Comprehensive metabolic panel - 07/22/18 04:15 Serum or plasma sodium measurement (moles/volume) 136 mmol/L 135-145 Serum or plasma potassium measurement (moles/volume) 4.5 mmol/L 3.6-5.0 Serum or plasma chloride measurement (moles/volume) 101 mmol/L 98-107 Carbon dioxide 25 mmol/L 21-32 Serum or plasma anion gap determination (moles/volume) 10 mmol/L 5-14 Serum or plasma urea nitrogen measurement (mass/volume ) 7 mg/dL 7-18 Serum or plasma creatinine measurement (mass/volume) 0.62 mg/dL 0.60-1.30 Serum or plasma urea nitrogen/creatinine mass ratio 11 NRG Serum or plasma creatinine measurement w ith calculation of estimated glomerular filtration rate > NRG Serum or plasma glucose measurement (mass/volume) 121 mg/dL 70-105 Serum or plasma calcium measurement (mass/volume) 8.5 mg/dL 8.5-10.1 Serum or plasma total bilirubin measurement (mass/volu me) 0.5 mg/dL 0.1-1.0 Serum or plasma alkaline phosphatase carlos surement (enzymatic activity/volume) 97 U/L 40-136 Serum or plasma aspartate aminotransfera se measurement (enzymatic activity/volume) 22 U/L 5-34 Serum or plasma alanine aminotransferase measurement (enzymatic activity/volume) 18 U/L 0-55 Serum or plasma protein measurement (mass/volume) 6.1 g/dL 6.4-8.2 Serum or plasma albumin measurement (mass/volume) 3.1 g/dL 3.2-4.5 CALCIUM CORRECTED 9.2 mg/dL 8.5-10.1 Complete blood count (CBC) with automate d white blood cell (WBC) differential - 07/23/18 10:12 Blood leukocytes automated count (number/volume) 12.3 10*3/uL 4.3-11.0 Blood erythrocytes automated count (number/volume) 5.24 10*6/uL 4.35-5.85 Venous blood hemoglobin measurement (mass/volume) 10.2 g/dL 11.5-16.0 Blood hematocrit (volume fraction) 34 % 35-52 Automated erythrocyte mean corpuscular volume 65 [ foz_us] 80-99 Automated erythrocyte mean corpuscular h emoglobin (mass per erythrocyte) 19 pg 25-34 Automated erythrocyte mean corpuscular h emoglobin concentration measurement (mass/volume) 30 g/dL 32-36 Automated erythrocyte distribution width ratio 30. 1 % 10.0- 14.5 Automated blood platelet count (count/volume) 852 10*3/uL [...] 10*3 1.0-4.0 Blood monocytes automated count (number/volume) 1. 1 10*3 0.0-1.0 Automated eosinophil count 0.1 10*3/uL 0 .0-0.3 Automated blood basophil count (count/volume) 0.1 10*3/uL 0.0-0.1 Influenza virus A and B antigen detectio n - 08/05/18 10:45 FLU RESULT NEGATIVE FOR INFLUENZA A AND B ANTIGENS BY IA NRG Complete urinalysis with reflex to cultu re - 08/05/18 10:50 Urine color determination YELLOW NRG Urine clarity determination CLEAR NR G Urine pH measurement by test strip 7 5-9 Specific gravity of urine by test strip 1.010 1.016-1.022 Urine protein assay by test strip, semi-quantitative 2+ NEGATIVE Urine glucose detection by automated test strip 4+ NEGATIVE Erythrocytes detection in urine sediment by light micr oscopy 3+ NEGATIVE Urine ketones detection by automated test strip NE GATIVE NEGATIVE Urine nitrite detection by test strip NEGATIVE NEGATIVE Urine total bilirubin detection by test strip 1+ NEGATIVE Urine urobilinogen measurement by automated test strip (mass/volume) 1 mg/dL NORMAL Urine leukocyte esterase detection by dipstick 3+ NEGATIVE Automated urine sediment erythrocyte cou nt by microscopy (number/high power field) [HPF] NRG Automated urine sediment leukocyte count by microscopy (number/high power field) > [HPF] NRG Bacteria detection in urine sediment by light microsco py MODERATE NRG Squamous epithelial cells detection in u rine sediment by light microscopy RARE NRG Crystals detection in urine sediment by light microsco py NONE NRG Casts detection in urine sediment by light microscopy NONE NRG Mucus detection in urine sediment by light microscopy NEGATIVE NRG Complete urinalysis with reflex to culture YES NRG Bacterial urine culture - 08/05/18 10:50 Bacterial urine culture NG NRG Complete blood count (CBC) with automate d white blood cell (WBC) differential - 08/05/18 11:11 Blood leukocytes automated count (number/volume) 21.7 10*3/uL 4.3-11.0 Blood erythrocytes automated count (number/volume) 4.21 10*6/uL 4.35-5.85 Venous blood hemoglobin measurement (mass/volume) 7.9 g/dL 11.5-16.0 Blood hematocrit (volume fraction) 27 % 35-52 Automated erythrocyte mean corpuscular volume 65 [ foz_us] 80-99 Automated erythrocyte mean corpuscular h emoglobin (mass per erythrocyte) 19 pg 25-34 Automated erythrocyte mean corpuscular h emoglobin concentration measurement (mass/volume) 29 g/dL 32-36 Automated erythrocyte distribution width ratio 26. 7 % 10.0- 14.5 Automated blood platelet count (count/volume) 685 10*3/uL 130-400 Automated blood platelet mean volume measurement 9.8 [foz_us] 7.4-10.4 Automated blood neutrophils/100 leukocytes 83 % 42-75 Automated blood lymphocytes/100 leukocytes 8 % 12-44 Blood monocytes/100 leukocytes 8 % 0-12 Automated blood eosinophils/100 leukocytes 0 % 0-10 Automated blood basophils/100 leukocytes 0 % 0-10 Blood neutrophils automated count (number/volume) 18.0 10*3 1.8-7.8 Blood lymphocytes automated count (number/volume) 1.8 10*3 1.0-4.0 Blood monocytes automated count (number/volume) 1. 8 10*3 0.0-1.0 Automated eosinophil count 0.1 10*3/uL 0 .0-0.3 Automated blood basophil count (count/volume) 0.0 10*3/uL 0.0-0.1 Comprehensive metabolic panel - 08/05/18 11:11 Serum or plasma sodium measurement (moles/volume) 135 mmol/L 135-145 Serum or plasma potassium measurement (moles/volume) 4.5 mmol/L 3.6-5.0 Serum or plasma chloride measurement (moles/volume) 105 mmol/L 98-107 Carbon dioxide 19 mmol/L 21-32 Serum or plasma anion gap determination (moles/volume) 11 mmol/L 5-14 Serum or plasma urea nitrogen measurement (mass/volume ) 33 mg/dL 7-18 Serum or plasma creatinine measurement (mass/volume) 1.01 mg/dL 0.60-1.30 Serum or plasma urea nitrogen/creatinine mass ratio 33 NRG Serum or plasma creatinine measurement w ith calculation of estimated glomerular filtration rate 53 NRG Serum or plasma glucose measurement (mass/volume) 83 mg/dL 70-105 Serum or plasma calcium measurement (mass/volume) 8.3 mg/dL 8.5-10.1 Serum or plasma total bilirubin measurement (mass/volu me) 0.5 mg/dL 0.1-1.0 Serum or plasma alkaline phosphatase carlos surement (enzymatic activity/volume) 92 U/L 40-136 Serum or plasma aspartate aminotransfera se measurement (enzymatic activity/volume) 20 U/L 5-34 Serum or plasma alanine aminotransferase measurement (enzymatic activity/volume) 13 U/L 0-55 Serum or plasma protein measurement (mass/volume) 6.3 g/dL 6.4-8.2 Serum or plasma albumin measurement (mass/volume) 2.9 g/dL 3.2-4.5 CALCIUM CORRECTED 9.2 mg/dL 8.5-10.1 Blood manual differential performed dete ction - 08/05/18 11:11 Blood monocytes/100 leukocytes 9 % NRG Manual blood segmented neutrophils/100 leukocytes 76 % NRG Blood band neutrophils/100 leukocytes 1 % NRG Manual blood lymphocytes/100 leukocytes 13 % NRG Manual eosinophils/100 leukocytes in nose 1 % NRG Manual blood basophils/100 leukocytes 0 % NRG Blood anisocytosis detection by light microscopy M ODERATE NRG Blood poikilocytosis detection by light microscopy SLIGHT NRG Blood hypochromia detection by light microscopy SL IGHT NRG Blood microcytes detection by light microscopy SLI GHT NRG Blood target cells detection by light microscopy S LIGHT NRG Blood lactic acid measurement (moles/vol ume) - 08/05/18 13:20 Blood lactic acid measurement (moles/volume) 0.80 mmol/L 0.50-2.00 Bacterial blood culture - 08/05/18 13:20 Bacterial blood culture NG NRG Bacterial blood culture - 08/05/18 13:50 Bacterial blood culture NG NRG Capillary blood glucose measurement by g lucometer (mass/volume) - 08/05/18 21:39 Capillary blood glucose measurement by glucometer (mas s/volume) 70 mg/dL 70-110 Complete blood count (CBC) with automate d white blood cell (WBC) differential - 08/06/18 04:28 Blood leukocytes automated count (number/volume) 14.7 10*3/uL 4.3-11.0 Blood erythrocytes automated count (number/volume) 4.28 10*6/uL 4.35-5.85 Venous blood hemoglobin measurement (mass/volume) 8.0 g/dL 11.5-16.0 Blood hematocrit (volume fraction) 28 % 35-52 Automated erythrocyte mean corpuscular volume 64 [ foz_us] 80-99 Automated erythrocyte mean corpuscular h emoglobin (mass per erythrocyte) 19 pg 25-34 Automated erythrocyte mean corpuscular h emoglobin concentration measurement (mass/volume) 29 g/dL 32-36 Automated erythrocyte distribution width ratio 27. 5 % 10.0- 14.5 Automated blood platelet count (count/volume) 693 10*3/uL 130-400 Automated blood platelet mean volume measurement 9.8 [foz_us] 7.4-10.4 Automated blood neutrophils/100 leukocytes 78 % 42-75 Automated blood lymphocytes/100 leukocytes 12 % 12-44 Blood monocytes/100 leukocytes 9 % 0-12 Automated blood eosinophils/100 leukocytes 1 % 0-10 Automated blood basophils/100 leukocytes 0 % 0-10 Blood neutrophils automated count (number/volume) 11.4 10*3 1.8-7.8 Blood lymphocytes automated count (number/volume) 1.7 10*3 1.0-4.0 Blood monocytes automated count (number/volume) 1. 4 10*3 0.0-1.0 Automated eosinophil count 0.2 10*3/uL 0 .0-0.3 Automated blood basophil count (count/volume) 0.0 10*3/uL 0.0-0.1 Comprehensive metabolic panel - 08/06/18 04:28 Serum or plasma sodium measurement (moles/volume) 136 mmol/L 135-145 Serum or plasma potassium measurement (moles/volume) 4.0 mmol/L 3.6-5.0 Serum or plasma chloride measurement (moles/volume) 109 mmol/L 98-107 Carbon dioxide 18 mmol/L 21-32 Serum or plasma anion gap determination (moles/volume) 9 mmol/L 5-14 Serum or plasma urea nitrogen measurement (mass/volume ) 20 mg/dL 7-18 Serum or plasma creatinine measurement (mass/volume) 0.77 mg/dL 0.60-1.30 Serum or plasma urea nitrogen/creatinine mass ratio 26 NRG Serum or plasma creatinine measurement w ith calculation of estimated glomerular filtration rate > NRG Serum or plasma glucose measurement (mass/volume) 82 mg/dL 70-105 Serum or plasma calcium measurement (mass/volume) 8.1 mg/dL 8.5-10.1 Serum or plasma total bilirubin measurement (mass/volu me) 0.4 mg/dL 0.1-1.0 Serum or plasma alkaline phosphatase carlos surement (enzymatic activity/volume) 94 U/L 40-136 Serum or plasma aspartate aminotransfera se measurement (enzymatic activity/volume) 23 U/L 5-34 Serum or plasma alanine aminotransferase measurement (enzymatic activity/volume) 12 U/L 0-55 Serum or plasma protein measurement (mass/volume) 6.1 g/dL 6.4-8.2 Serum or plasma albumin measurement (mass/volume) 2.8 g/dL 3.2-4.5 CALCIUM CORRECTED 9.1 mg/dL 8.5-10.1 Capillary blood glucose measurement by g lucometer (mass/volume) - 08/06/18 04:57 Capillary blood glucose measurement by glucometer (mas s/volume) 90 mg/dL 70-110 Capillary blood glucose measurement by g lucometer (mass/volume) - 08/06/18 11:13 Capillary blood glucose measurement by glucometer (mas s/volume) 111 mg/dL 70-110 C DIFFICILE AG + TOXIN A/B. - 08/06/18 1 3:35 RESULTS NEGATIVE FOR ANTIGEN AND TOXIN A/B NRG Methicillin resistant Staphylococcus aur eus (MRSA) screening culture - 08/06/18 15:45 Methicillin resistant Staphylococcus aureus (MRSA) scr eening culture NEG NRG RED CELLS LEUKO REDUCED AS1 - 08/06/18 1 5:56 RED CELLS LEUKO REDUCED AS1 N OT AVAILABLE NRG Blood type T Indirect antibody screen pa jesse - 08/06/18 15:56 ABO+Rh group BP NRG Transfusion band number [id number] NRG Blood group antibody screen NEGATIVE NR G Capillary blood glucose measurement by g lucometer (mass/volume) - 08/06/18 16:30 Capillary blood glucose measurement by glucometer (mas s/volume) 187 mg/dL 70-110 Capillary blood glucose measurement by g lucometer (mass/volume) - 08/06/18 20:01 Capillary blood glucose measurement by glucometer (mas s/volume) 217 mg/dL 70-110 Whole blood hemoglobin and hematocrit pa jesse - 08/07/18 00:35 Venous blood hemoglobin measurement (mass/volume) 9.4 g/dL 11.5-16.0 Blood hematocrit (volume fraction) 33 % 35-52 Complete blood count (CBC) with automate d white blood cell (WBC) differential - 08/07/18 03:45 Blood leukocytes automated count (number/volume) 12.3 10*3/uL 4.3-11.0 Blood erythrocytes automated count (number/volume) 4.96 10*6/uL 4.35-5.85 Venous blood hemoglobin measurement (mass/volume) 10.0 g/dL 11.5-16.0 Blood hematocrit (volume fraction) 34 % 35-52 Automated erythrocyte mean corpuscular volume 68 [ foz_us] 80-99 Automated erythrocyte mean corpuscular h emoglobin (mass per erythrocyte) 20 pg 25-34 Automated erythrocyte mean corpuscular h emoglobin concentration measurement (mass/volume) 30 g/dL 32-36 Automated erythrocyte distribution width ratio 27. 2 % 10.0- 14.5 Automated blood platelet count (count/volume) 598 10*3/uL 130-400 Automated blood platelet mean volume measurement 9.6 [foz_us] 7.4-10.4 Automated blood neutrophils/100 leukocytes 72 % 42-75 Automated blood lymphocytes/100 leukocytes 14 % 12-44 Blood monocytes/100 leukocytes 12 % 0-12 Automated blood eosinophils/100 leukocytes 2 % 0-10 Automated blood basophils/100 leukocytes 1 % 0-10 Blood neutrophils automated count (number/volume) 8.9 10*3 1.8-7.8 Blood lymphocytes automated count (number/volume) 1.8 10*3 1.0-4.0 Blood monocytes automated count (number/volume) 1. 4 10*3 0.0-1.0 Automated eosinophil count 0.2 10*3/uL 0 .0-0.3 Automated blood basophil count (count/volume) 0.1 10*3/uL 0.0-0.1 Comprehensive metabolic panel - 08/07/18 03:45 Serum or plasma sodium measurement (moles/volume) 140 mmol/L 135-145 Serum or plasma potassium measurement (moles/volume) 4.0 mmol/L 3.6-5.0 Serum or plasma chloride measurement (moles/volume) 113 mmol/L 98-107 Carbon dioxide 17 mmol/L 21-32 Serum or plasma anion gap determination (moles/volume) 10 mmol/L 5-14 Serum or plasma urea nitrogen measurement (mass/volume ) 9 mg/dL 7-18 Serum or plasma creatinine measurement (mass/volume) 0.57 mg/dL 0.60-1.30 Serum or plasma urea nitrogen/creatinine mass ratio 16 NRG Serum or plasma creatinine measurement w ith calculation of estimated glomerular filtration rate > NRG Serum or plasma glucose measurement (mass/volume) 92 mg/dL 70-105 Serum or plasma calcium measurement (mass/volume) 8.1 mg/dL 8.5-10.1 Serum or plasma total bilirubin measurement (mass/volu me) 1.0 mg/dL 0.1-1.0 Serum or plasma alkaline phosphatase carlos surement (enzymatic activity/volume) 92 U/L 40-136 Serum or plasma aspartate aminotransfera se measurement (enzymatic activity/volume) 28 U/L 5-34 Serum or plasma alanine aminotransferase measurement (enzymatic activity/volume) 15 U/L 0-55 Serum or plasma protein measurement (mass/volume) 5.8 g/dL 6.4-8.2 Serum or plasma albumin measurement (mass/volume) 2.7 g/dL 3.2-4.5 CALCIUM CORRECTED 9.1 mg/dL 8.5-10.1 Capillary blood glucose measurement by g lucometer (mass/volume) - 08/07/18 06:09 Capillary blood glucose measurement by glucometer (mas s/volume) 99 mg/dL 70-110 Bacteria identification in isolate by an aerobe culture - 08/07/18 08:50 Bacteria identification in isolate by anaerobe culture NOANA NRG Gram stain microscopy - 08/07/18 08:50 Gram stain microscopy Red blood cell debris NRG Bacteria identification in wound by cult ure - 08/07/18 08:50 Bacteria identification in wound by culture SEE CO MMEN NRG QUANTITY OF GROWTH . NRG Bacteria identification in isolate by an aerobe culture - 08/07/18 08:56 Bacteria identification in isolate by anaerobe culture NOANA NRG Gram stain microscopy - 08/07/18 08:56 Gram stain microscopy Red blood cell debris NRG Bacteria identification in wound by cult ure - 08/07/18 08:56 Bacteria identification in wound by culture SEE CO MMEN NRG QUANTITY OF GROWTH . NRG Capillary blood glucose measurement by g lucometer (mass/volume) - 08/07/18 10:57 Capillary blood glucose measurement by glucometer (mas s/volume) 111 mg/dL 70-110 Capillary blood glucose measurement by g lucometer (mass/volume) - 08/07/18 15:33 Capillary blood glucose measurement by glucometer (mas s/volume) 206 mg/dL 70-110 Capillary blood glucose measurement by g lucometer (mass/volume) - 08/07/18 20:03 Capillary blood glucose measurement by glucometer (mas s/volume) 182 mg/dL 70-110 Complete blood count (CBC) with automate d white blood cell (WBC) differential - 08/08/18 05:30 Blood leukocytes automated count (number/volume) 17.3 10*3/uL 4.3-11.0 Blood erythrocytes automated count (number/volume) 4.39 10*6/uL 4.35-5.85 Venous blood hemoglobin measurement (mass/volume) 9.0 g/dL 11.5-16.0 Blood hematocrit (volume fraction) 30 % 35-52 Automated erythrocyte mean corpuscular volume 69 [ foz_us] 80-99 Automated erythrocyte mean corpuscular h emoglobin (mass per erythrocyte) 21 pg 25-34 Automated erythrocyte mean corpuscular h emoglobin concentration measurement (mass/volume) 30 g/dL 32-36 Automated erythrocyte distribution width ratio 27. 7 % 10.0- 14.5 Automated blood platelet count (count/volume) 597 10*3/uL 130-400 Automated blood platelet mean volume measurement 9.4 [foz_us] 7.4-10.4 Automated blood neutrophils/100 leukocytes 75 % 42-75 Automated blood lymphocytes/100 leukocytes 11 % 12-44 Blood monocytes/100 leukocytes 13 % 0-12 Automated blood eosinophils/100 leukocytes 1 % 0-10 Automated blood basophils/100 leukocytes 0 % 0-10 Blood neutrophils automated count (number/volume) 12.9 10*3 1.8-7.8 Blood lymphocytes automated count (number/volume) 1.9 10*3 1.0-4.0 Blood monocytes automated count (number/volume) 2. 2 10*3 0.0-1.0 Automated eosinophil count 0.2 10*3/uL 0 .0-0.3 Automated blood basophil count (count/volume) 0.1 10*3/uL 0.0-0.1 Comprehensive metabolic panel - 08/08/18 05:30 Serum or plasma sodium measurement (moles/volume) 139 mmol/L 135-145 Serum or plasma potassium measurement (moles/volume) 4.3 mmol/L 3.6-5.0 Serum or plasma chloride measurement (moles/volume) 114 mmol/L 98-107 Carbon dioxide 14 mmol/L 21-32 Serum or plasma anion gap determination (moles/volume) 11 mmol/L 5-14 Serum or plasma urea nitrogen measurement (mass/volume ) 5 mg/dL 7-18 Serum or plasma creatinine measurement (mass/volume) 0.60 mg/dL 0.60-1.30 Serum or plasma urea nitrogen/creatinine mass ratio 8 NRG Serum or plasma creatinine measurement w ith calculation of estimated glomerular filtration rate > NRG Serum or plasma glucose measurement (mass/volume) 139 mg/dL 70-105 Serum or plasma calcium measurement (mass/volume) 7.8 mg/dL 8.5-10.1 Serum or plasma total bilirubin measurement (mass/volu me) 0.4 mg/dL 0.1-1.0 Serum or plasma alkaline phosphatase carlos surement (enzymatic activity/volume) 78 U/L 40-136 Serum or plasma aspartate aminotransfera se measurement (enzymatic activity/volume) 35 U/L 5-34 Serum or plasma alanine aminotransferase measurement (enzymatic activity/volume) 12 U/L 0-55 Serum or plasma protein measurement (mass/volume) 5.2 g/dL 6.4-8.2 Serum or plasma albumin measurement (mass/volume) 2.3 g/dL 3.2-4.5 CALCIUM CORRECTED 9.2 mg/dL 8.5-10.1 Capillary blood glucose measurement by g lucometer (mass/volume) - 08/08/18 05:46 Capillary blood glucose measurement by glucometer (mas s/volume) 152 mg/dL 70-110 Serum or plasma C reactive protein measu rement (mass/volume) - 08/08/18 09:05 Serum or plasma C reactive protein measurement (mass/v olume) 6.16 mg/dL 0.00-0.50 Erythrocyte sedimentation rate by clemencia gren method - 08/08/18 09:05 Erythrocyte sedimentation rate by westergren method 19 mm 0- 30 Capillary blood glucose measurement by g lucometer (mass/volume) - 08/08/18 11:07 Capillary blood glucose measurement by glucometer (mas s/volume) 292 mg/dL 70-110 Capillary blood glucose measurement by g lucometer (mass/volume) - 08/08/18 17:09 Capillary blood glucose measurement by glucometer (mas s/volume) 266 mg/dL 70-110 Capillary blood glucose measurement by g lucometer (mass/volume) - 08/08/18 20:35 Capillary blood glucose measurement by glucometer (mas s/volume) 261 mg/dL 70-110 Capillary blood glucose measurement by g lucometer (mass/volume) - 08/09/18 06:10 Capillary blood glucose measurement by glucometer (mas s/volume) 165 mg/dL 70-110 Complete blood count (CBC) with automate d white blood cell (WBC) differential - 08/09/18 07:30 Blood leukocytes automated count (number/volume) 13.4 10*3/uL 4.3-11.0 Blood erythrocytes automated count (number/volume) 4.96 10*6/uL 4.35-5.85 Venous blood hemoglobin measurement (mass/volume) 10.1 g/dL 11.5-16.0 Blood hematocrit (volume fraction) 35 % 35-52 Automated erythrocyte mean corpuscular volume 70 [ foz_us] 80-99 Automated erythrocyte mean corpuscular h emoglobin (mass per erythrocyte) 20 pg 25-34 Automated erythrocyte mean corpuscular h emoglobin concentration measurement (mass/volume) 29 g/dL 32-36 Automated erythrocyte distribution width ratio 28. 5 % 10.0- 14.5 Automated blood platelet count (count/volume) 610 10*3/uL 130-400 Automated blood platelet mean volume measurement 9.2 [foz_us] 7.4-10.4 Automated blood neutrophils/100 leukocytes 72 % 42-75 Automated blood lymphocytes/100 leukocytes 14 % 12-44 Blood monocytes/100 leukocytes 11 % 0-12 Automated blood eosinophils/100 leukocytes 3 % 0-10 Automated blood basophils/100 leukocytes 1 % 0-10 Blood neutrophils automated count (number/volume) 9.6 10*3 1.8-7.8 Blood lymphocytes automated count (number/volume) 1.9 10*3 1.0-4.0 Blood monocytes automated count (number/volume) 1. 5 10*3 0.0-1.0 Automated eosinophil count 0.3 10*3/uL 0 .0-0.3 Automated blood basophil count (count/volume) 0.1 10*3/uL 0.0-0.1 Comprehensive metabolic panel - 08/09/18 07:30 Serum or plasma sodium measurement (moles/volume) 139 mmol/L 135-145 Serum or plasma potassium measurement (moles/volume) 4.2 mmol/L 3.6-5.0 Serum or plasma chloride measurement (moles/volume) 112 mmol/L 98-107 Carbon dioxide 17 mmol/L 21-32 Serum or plasma anion gap determination (moles/volume) 10 mmol/L 5-14 Serum or plasma urea nitrogen measurement (mass/volume ) 4 mg/dL 7-18 Serum or plasma creatinine measurement (mass/volume) 0.54 mg/dL 0.60-1.30 Serum or plasma urea nitrogen/creatinine mass ratio 7 NRG Serum or plasma creatinine measurement w ith calculation of estimated glomerular filtration rate > NRG Serum or plasma glucose measurement (mass/volume) 176 mg/dL 70-105 Serum or plasma calcium measurement (mass/volume) 8.2 mg/dL 8.5-10.1 Serum or plasma total bilirubin measurement (mass/volu me) 0.4 mg/dL 0.1-1.0 Serum or plasma alkaline phosphatase carlos surement (enzymatic activity/volume) 89 U/L 40-136 Serum or plasma aspartate aminotransfera se measurement (enzymatic activity/volume) 24 U/L 5-34 Serum or plasma alanine aminotransferase measurement (enzymatic activity/volume) 15 U/L 0-55 Serum or plasma protein measurement (mass/volume) 5.8 g/dL 6.4-8.2 Serum or plasma albumin measurement (mass/volume) 2.7 g/dL 3.2-4.5 CALCIUM CORRECTED 9.2 mg/dL 8.5-10.1 Vancomycin trough - 08/09/18 07:30 Vancomycin trough 6.0 ug/mL 10.0-20.0 Capillary blood glucose measurement by g lucometer (mass/volume) - 08/09/18 10:41 Capillary blood glucose measurement by glucometer (mas s/volume) 278 mg/dL 70-110 Capillary blood glucose measurement by g lucometer (mass/volume) - 08/09/18 17:09 Capillary blood glucose measurement by glucometer (mas s/volume) 212 mg/dL 70-110 Capillary blood glucose measurement by g lucometer (mass/volume) - 08/09/18 21:04 Capillary blood glucose measurement by glucometer (mas s/volume) 212 mg/dL 70-110 Complete blood count (CBC) with automate d white blood cell (WBC) differential - 08/10/18 04:45 Blood leukocytes automated count (number/volume) 16.7 10*3/uL 4.3-11.0 Blood erythrocytes automated count (number/volume) 4.05 10*6/uL 4.35-5.85 Venous blood hemoglobin measurement (mass/volume) 8.3 g/dL 11.5-16.0 Blood hematocrit (volume fraction) 28 % 35-52 Automated erythrocyte mean corpuscular volume 69 [ foz_us] 80-99 Automated erythrocyte mean corpuscular h emoglobin (mass per erythrocyte) 20 pg 25-34 Automated erythrocyte mean corpuscular h emoglobin concentration measurement (mass/volume) 30 g/dL 32-36 Automated erythrocyte distribution width ratio 28. 7 % 10.0- 14.5 Automated blood platelet count (count/volume) 583 10*3/uL 130-400 Automated blood platelet mean volume measurement 8.7 [foz_us] 7.4-10.4 Automated blood neutrophils/100 leukocytes 75 % 42-75 Automated blood lymphocytes/100 leukocytes 12 % 12-44 Blood monocytes/100 leukocytes 11 % 0-12 Automated blood eosinophils/100 leukocytes 2 % 0-10 Automated blood basophils/100 leukocytes 0 % 0-10 Blood neutrophils automated count (number/volume) 12.5 10*3 1.8-7.8 Blood lymphocytes automated count (number/volume) 2.0 10*3 1.0-4.0 Blood monocytes automated count (number/volume) 1. 9 10*3 0.0-1.0 Automated eosinophil count 0.3 10*3/uL 0 .0-0.3 Automated blood basophil count (count/volume) 0.0 10*3/uL 0.0-0.1 Comprehensive metabolic panel - 08/10/18 04:45 Serum or plasma sodium measurement (moles/volume) 138 mmol/L 135-145 Serum or plasma potassium measurement (moles/volume) 3.5 mmol/L 3.6-5.0 Serum or plasma chloride measurement (moles/volume) 108 mmol/L 98-107 Carbon dioxide 22 mmol/L 21-32 Serum or plasma anion gap determination (moles/volume) 8 mmol/L 5-14 Serum or plasma urea nitrogen measurement (mass/volume ) 3 mg/dL 7-18 Serum or plasma creatinine measurement (mass/volume) 0.49 mg/dL 0.60-1.30 Serum or plasma urea nitrogen/creatinine mass ratio 6 NRG Serum or plasma creatinine measurement w ith calculation of estimated glomerular filtration rate > NRG Serum or plasma glucose measurement (mass/volume) 175 mg/dL 70-105 Serum or plasma calcium measurement (mass/volume) 7.8 mg/dL 8.5-10.1 Serum or plasma total bilirubin measurement (mass/volu me) 0.5 mg/dL 0.1-1.0 Serum or plasma alkaline phosphatase carlos surement (enzymatic activity/volume) 84 U/L 40-136 Serum or plasma aspartate aminotransfera se measurement (enzymatic activity/volume) 22 U/L 5-34 Serum or plasma alanine aminotransferase measurement (enzymatic activity/volume) 14 U/L 0-55 Serum or plasma protein measurement (mass/volume) 5.0 g/dL 6.4-8.2 Serum or plasma albumin measurement (mass/volume) 2.3 g/dL 3.2-4.5 CALCIUM CORRECTED 9.2 mg/dL 8.5-10.1 Capillary blood glucose measurement by g lucometer (mass/volume) - 08/10/18 11:29 Capillary blood glucose measurement by glucometer (mas s/volume) 248 mg/dL 70-110 Whole blood basic metabolic panel - 09/25 13:45 Serum or plasma sodium measurement (moles/volume) 140 mmol/L 135-145 Serum or plasma potassium measurement (moles/volume) 3.5 mmol/L 3.6-5.0 Serum or plasma chloride measurement (moles/volume) 108 mmol/L 98-107 Carbon dioxide 24 mmol/L 21-32 Serum or plasma anion gap determination (moles/volume) 8 mmol/L 5-14 Serum or plasma urea nitrogen measurement (mass/volume ) 8 mg/dL 7-18 Serum or plasma creatinine measurement (mass/volume) 0.78 mg/dL 0.60-1.30 Serum or plasma urea nitrogen/creatinine mass ratio 10 NRG Serum or plasma creatinine measurement w ith calculation of estimated glomerular filtration rate > NRG Serum or plasma glucose measurement (mass/volume) 195 mg/dL 70-105 Serum or plasma calcium measurement (mass/volume) 7.5 mg/dL 8.5-10.1 Vancomycin trough - 08/12/18 13:45 Vancomycin trough 21.3 ug/mL 10.0-20.0 Vancomycin trough - 08/15/18 13:45 Vancomycin trough 27.2 ug/mL 10.0-20.0 Vancomycin trough - 09/04/18 02:45 Vancomycin trough 15.7 ug/mL 10.0-20.0 Vancomycin trough - 09/10/18 00:59 Vancomycin trough 31.9 ug/mL 10.0-20.0 Vancomycin trough - 09/10/18 21:02 Vancomycin trough 10.1 ug/mL 10.0-20.0 Vancomycin trough - 09/17/18 20:35 Vancomycin trough 9.1 ug/mL 10.0-20.0 Vancomycin trough - 09/19/18 19:50 Vancomycin trough 9.4 ug/mL 10.0-20.0 Vancomycin trough - 09/22/18 21:45 Vancomycin trough 8.6 ug/mL 10.0-20.0 Vancomycin trough - 09/25/18 20:23 Vancomycin trough 8.3 ug/mL 10.0-20.0 Vancomycin trough - 09/28/18 20:35 Vancomycin trough 8.5 ug/mL 10.0-20.0 Encounters ACCT No. Visit Date/Time Discharge Status Pt. Type Provider Facility Loc./Unit Complaint [id number] 04/07/2019 20:53:00 02:44:00 DIS Outpatient ROBERT JAMISON APRN [facility] ER NECK PAIN [id number] 11/10/2018 00:11:00 23:59:59 CLS Preadmit CARMEN RAMIREZ DO [facility] VANCO 2 GRAM/250 ML IV DAILY [id number] 08/15/2018 13:30:00 00:01:00 DIS Outpatient CARMEN RAMIREZ DO [facility] VANCO 2 GRAM/250 ML IV DAILY [id number] 09/28/2018 21:03:00 23:59:59 CLS Outpatient ADRY BARRERA JOSEY Kati [facility] LABT [id number] 09/25/2018 20:44:00 23:59:59 CLS Outpatient JOSEY RIDER DO [facility] VANC TROUGH [id number] 09/22/2018 21:44:00 23:59:59 CLS Outpatient JOSEY RIDER DO [facility] VANCOMYCIN TROU GH [id number] 09/19/2018 20:21:00 23:59:59 CLS Outpatient JOSEY RIDER DO [facility] [id number] 09/17/2018 20:55:00 23:59:59 ANSELMO Outpatient JOSEY RIDER DO [facility] RECEIVING IV VA NCOMYCIN [id number] 2018 21:43:00 23:59:59 ANSELMO Outpatient JOSEY RIDER DO [facility] VANC TROUGH [id number] 2018 01:42:00 23:59:59 CLS Outpatient JOSEY RIDER DO [facility] LABT VANCOMYCIN ADMINISTERATION [id number] 09/04/2018 03:23:00 23:59:59 CLS Outpatient JOSEY RIDER DO [facility] RECIEVING IV VA NCO [id number] 08/24/2018 10:14:00 11:55:00 DIS Outpatient JOSEY RIDER DO [facility] EMBOLISM AND TH ROMBOSIS, 174.3,R71.8 [id number] 08/19/2018 12:13:00 23:59:59 CLS Preadmit JEANETTE MARCUM, VIKASH Reyes [facility] WOUNDCARE [id number] 08/05/2018 13:00:00 14:15:00 DIS Inpatient DAVID MARCUM, BRENDA Sood [facility] 4TH UTI,SEPSIS [id number] 07/25/2018 12:26:00 23:59:59 CLS Outpatient KYMBERLY DPM, DAVID Q [facility] RAD DIMINISHED PEDAL PULSES [id number] 07/23/2018 09:52:00 23:59:59 CLS Outpatient CAROL ANN KRUSE MD [facility] LAB [id number] 07/22/2018 03:58:00 05:25:00 DIS Emergency LOYDA MCKEON MD [facility] ER LEFT HIP BLEEDING [id number] 07/20/2018 15:46:00 17:32:00 DIS Emergency ROBERT JAMISON APRN [facility] ER LOW BODY TEMP [id number] 07/17/2018 22:15:00 23:00:00 DIS Emergency YVETTE INFANTE [facility] ER SURGERY SITE [id number] 07/03/2018 17:00:00 13:50:00 DIS Inpatient IVA MARCUM, PILY Sood [facility] 4TH L SUBCAPITOL HI P FX,CAD,TYPE2 DM,FALL,DEMENTIA [id number] 06/15/2018 08:12:00 23:59:59 CLS Outpatient NATHANIEL MOFFETT MD [facility] LAB Z01.810,N39.0 [id number] 06/10/2018 07:57:00 23:59:59 CLS Outpatient NATHANIEL MOFFETT MD [facility] LAB PREOPERATIVE CARDIOVASC ULAR EXAM [id number] 06/09/2018 16:16:00 019 23:59:59 CLS Outpatient DAVID TRAYLOR DPM Q [facility] RAD CHRONIC ULCERATION TO T HE LEFT 5TH METATARSAL HEAD [id number] 06/08/2018 10:35:00 019 23:59:59 CLS Outpatient DAVID TRAYLOR DPM Q [facility] LAB CELLULITIS LEFT FOOT [id number] 04/26/2018 08:55:00 018 23:59:59 CLS Outpatient JOSEY RIDER DO [facility] RAD PAD OF LOWER EX TREMITIES [id number] 03/28/2018 08:14:00 018 23:59:59 CLS Outpatient ABRAN MARCUM FACC, JOAQUÍN LUI CC DS [facility] RT CAD,CAROTID ARTERY STENOSIS,HLD,HTN [id number] 03/22/2018 10:19:00 018 23:59:59 CLS Outpatient ABRAN MARCUM FACLai, JOAQUÍN LUI CC DS [facility] CARD CAD,CAROTID ARTERY STENOSIS,HLD,HTN [id number] 08/25/2017 08:12:00 018 23:59:59 CLS Outpatient JOSEY RIDER DO [facility] RAD RIGHT ARM PAIN/ SWELLING [id number] 08/09/2017 14:36:00 018 23:59:59 CLS Preadmit JOSEY RIDER DO [facility] RAD BREAST ABNORMALITY [id number] 07/20/2017 10:20:00 018 23:59:59 CLS Preadmit JOSEY RIDER DO [facility] RAD SCREENING Z12.31 [id number] 06/25/2017 10:41:00 018 11:36:00 DIS Outpatient JOSEY RIDER DO [facility] REHAB COMP FX L1 S/P KYPHOPLASTY [id number] 05/31/2017 11:02:00 018 00:01:00 DIS Outpatient JOSEY RIDER DO [facility] REHAB COMP FX L1 S/P KYPHOPLASTY [id number] 04/20/2017 09:00:00 017 23:59:59 CLS Outpatient URI LEIVA MD [facility] LAB Z01.810 Z01.818 [id number] 04/08/2017 08:25:00 017 23:59:59 CLS Outpatient URI LEIVA MD [facility] LAB N39.0,I65.23,Z01.818 [id number] 04/07/2017 12:45:00 23:59:59 CLS Outpatient JOSEY RIDER DO [facility] ME1.0 [id number] 03/31/2017 10:14:00 23:59:59 CLS Preadmit JOSEY RIDER DO [facility] M81.0 [id number] 03/18/2017 10:16:00 Radha 23:59:59 CLS Outpatient JOSEY RIDER DO [facility] RAD LUMBAR COMPRESS ION FRACTURES [id number] 03/16/2017 07:30:00 017 23:59:59 CLS Outpatient ANAYELI DICKENS [facility] CARD CAD [id number] 03/02/2017 07:42:00 017 23:59:59 CLS Outpatient ANAYELI DICKENS [facility] CARD CAD [id number] 03/02/2017 08:20:00 017 11:11:00 DIS Emergency LINDA MARCUM, LOYDA Parikh [facility] ER FALL [id number] 02/24/2017 11:30:00 017 23:59:59 CLS Outpatient ANAYELI DICKENS [facility] RAD CAROTID ARTERY STENOSIS,CAD [id number] 02/16/2017 07:51:00 Radha 23:59:59 CLS Outpatient JOSEY RIDER DO [facility] RAD N39.0 EVALUATE FOR FISTULA [id number] 02/03/2017 18:02:00 017 14:30:00 DIS Inpatient RAMIREZ , CARMEN Halina [facility] 4TH UTI W RESISTANCE,AMS,HYPONATREMIC,S/P KYPHOPLASTY [id number] 02/02/2017 10:24:00 017 23:59:59 CLS Outpatient ANAYELI DICKENS [facility] LAB I25.10 [id number] 02/02/2017 11:10:00 017 16:45:00 DIS Outpatient GALINA MARCUM, PRAKASH Diaz [facility] SDC L1 COMPRESSION FRACTURE [id number] 01/29/2017 05:26:00 017 10:38:00 DIS Outpatient PRAKASH MOJICA MD [facility] PREOP L1 COMPRESSION FRACTURE [id number] 01/28/2017 10:14:00 017 23:59:59 CLS Outpatient JOSEY RIDER DO [facility] RAD FRACTURE L1 [id number] 01/26/2017 09:50:00 017 23:59:59 CLS Outpatient JOSEY RIDER DO [facility] RAD COMPRESSION FX [id number] 01/14/2017 13:33:00 017 16:54:00 DIS Emergency LYCONNOR Braswell [facility] ER LOWER BACK PAIN-FALL [id number] 09/16/2016 00:16:00 017 23:59:59 CLS Preadmit JOSEY RIDER DO [facility] LAB R19.7 [id number] 06/17/2016 13:44:00 017 00:01:00 DIS Outpatient JOSEY RIDER DO [facility] LAB R19.7 [id number] 08/21/2016 08:28:00 017 23:59:59 CLS Outpatient ANAYELI DICKENS [facility] LAB HLD,CAD,HTN [id number] 08/03/2016 12:54:00 15:49:00 DIS Emergency KAYLIN DONIS [facility] ER FALL/LEFT HAND INJURY [id number] 07/20/2016 08:33:00 23:59:59 CLS Outpatient JOSEY RIDER DO [facility] RAD F/U RIGHT BREAS T DENSITY [id number] 04/09/2016 07:10:00 23:59:59 CLS Outpatient JOSEY RIDER DO [facility] RAD URINARY/FECAL I NCONTINENCE [id number] 02/14/2016 08:03:00 23:59:59 CLS Outpatient BAIANAYELI HURTADO L [employer]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 HLD,CAD [id number] 01/24/2016 08:38:00 23:59:59 CLS Outpatient JOSEY RIDER DO [facility] RAD F/U [id number] 12/30/2015 11:13:00 23:59:59 CLS Outpatient BAIMA, ANAYELI L [employer]WORK ENGINEER [facility] RAD CAROTID ARTERY STENOSIS [id number] 12/26/2015 07:55:00 23:59:59 CLS Outpatient BAIGENESIS, ANAYELI L [employer]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 CAROTID ARTERY STENOSIS,HLD [id number] 12/25/2015 08:37:00 23:59:59 CLS Outpatient BAIMA, ANAYELI L [employer]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 CAROTID ARTERY STENOSIS, HDL [id number] 12/03/2015 09:59:00 14:45:[address] SULLIVAN MD [facility] ER CHEST PAIN/FATI ISRA UPPER LEG PAIN [id number] 08/05/2015 07:42:00 23:59:59 CLS Outpatient JOSEY RIDER DO [facility] RAD ABNORMAL MAMMO [id number] 07/25/2015 08:25:00 016 23:59:59 CLS Outpatient JOSEY RIDER DO [facility] RAD SCREENING [id number] 03/28/2015 06:02:00 23:59:59 CLS Outpatient KYMBERLY DPM, DAVID Q [facility] CARD CHRONIC ULCER L 5TH MET ATARSAL [id number] 02/15/2015 11:20:00 15:45:00 DIS Outpatient KYMBERLY DPM, DAVID Q [facility] BUNION [id number] 02/11/2015 07:53:00 23:59:59 CLS Outpatient KYMBERLY DPM, DAVID Q [facility] PREOP BUNION [id number] 01/31/2015 06:00:00 07:37:00 DIS Outpatient KYMBERLY DPM, DAVID Q [facility] BUNION LEFT FOOT [id number] 01/29/2015 07:28:00 23:59:59 CLS Outpatient ABRAN MARCUM FACC, ALI FACP CC DS [facility] CARD CAD [id number] 01/25/2015 08:23:00 015 23:59:59 CLS Outpatient ABRAN MARCUM FACC, ALI FACP CC DS [facility] CARD CAD [id number] 01/17/2015 12:02:00 23:59:59 CLS Outpatient KYMBERLY DPM, DAVID Q [facility] PREOP BUNION LEFT FOOT [id number] 09/24/2014 21:57:00 015 12:02:00 DIS Inpatient JOSEY RIDER DO [facility] 4TH HYPOGLYCEMIA [id number] 09/23/2014 11:46:00 14:06:00 DIS Emergency ROBERT JAMISON APRN [facility] ER LOW BLOOD SUGAR [id number] 09/06/2014 09:10:00 10:45:00 DIS Emergency BRUEGGEMANN MD, RD Newman [facility] ER HYPOGLYCEMIA [id number] 08/01/2014 15:58:00 015 10:15:00 DIS Inpatient JOSEY RIDER DO [facility] 4TH UNCONTROLLED DI ABETES [id number] 06/27/2013 09:15:00 014 23:59:59 CLS Outpatient JOSEY RIDER DO [facility] RAD SCREENING [id number] 05/29/2013 07:57:00 014 10:45:00 DIS Emergency LAURIE MARCUM, RD Newman [facility] ER POSS VAG ABSCES S [id number] 12/20/2012 11:53:00 013 23:59:59 CLS Outpatient RIDINGS, NEY Hoyt [employer] 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 [facility] RAD PAIN AND SWELLI NG IN RT ANKLE [id number] 08/06/2014 16:39:00 Document Registration [id number] 08/06/2014 16:39:00 Document Registration [id number] 08/06/2014 16:39:00 Document Registration [id number] 08/06/2014 16:39:00 Document Registration [id number] 08/06/2014 16:39:00 Document Registration [id number] 08/06/2014 16:39:00 Document Registration [id number] 08/06/2014 16:39:00 Document Registration [id number] 07/17/2014 09:06:00 Document Registration [id number] 12/03/2011 09:20:00 Document Registration [id number] 11/16/2011 09:00:00 Document Registration [id number] 06/03/2011 09:07:00 Document Registration [id number] 10/02/2010 06:37:00 Document Registration [id number] 09/18/2010 10:27:00 Document Registration [id number] 06/24/2009 08:17:00 Document Registration
== END 2019-04-08 02:44 ==
LOC: EDUNIT# 20:52 → ER 20:53
DX: M54.2 Cervicalgia (principal); F03.90 Unspecified dementia, unspecified severity, without behavioral disturbance, psychotic disturbance, mood disturbance, and anxiety; I25.10 Atherosclerotic heart disease of native coronary artery without angina pectoris; I25.2 Old myocardial infarction; E78.00 Pure hypercholesterolemia, unspecified; K21.9 Gastro-esophageal reflux disease without esophagitis; M81.0 Age-related osteoporosis without current pathological fracture; E11.9 Type 2 diabetes mellitus without complications; F41.9 Anxiety disorder, unspecified; Z86.73 Personal history of transient ischemic attack (TIA), and cerebral infarction without residual deficits; Z79.82 Long term (current) use of aspirin; Z79.02 Long term (current) use of antithrombotics/antiplatelets; Z79.4 Long term (current) use of insulin; Z87.891 Personal history of nicotine dependence; Z90.49 Acquired absence of other specified parts of digestive tract; Z95.5 Presence of coronary angioplasty implant and graft; Z90.710 Acquired absence of both cervix and uterus; Z82.49 Family history of ischemic heart disease and other diseases of the circulatory system; W06.XXXA Fall from bed, initial encounter
CPT/HCPCS: 70450; 71045; 72125; 72170

== ENCOUNTER 2020-12-13 12:02 | Inpatient (IN) | payer MEDICARE, MEDICAID ==
[~2020-12-13] VITALS: Ht 157 cm; Wt 68.0 kg
[~2020-12-13 12:02] MED LIST changes: -CIPR500T4 PO; +CIPR500T5 PO; -CRAN500T2 PO; +CRAN500T3 PO; -SULF1TAB35 PO; -TRAM50TA2 PO
--- NOTE | 2020-12-13 12:18 | ED General ---
General Stated Complaint: LETHARGIC Source of Information: Patient Exam Limitations: No Limitations History of Present Illness Date Seen by Provider: Dec 13, 2020 Time Seen by Provider: 12:14 Initial Comments To ER with reports of lethargy from [facility], [place]. She was noted to have a low oxygen saturation of 89% On room air and does not normally wear oxygen. She has had both Covid vaccinations and tested negative yesterday. No cough no fevers. EMS arrived to find her at 86% on room air and gave 6 L of supplemental oxygen to get her up to 95%. Patient was straight catheterized this morning and was noted to have "creamy yellow urine". She is quite demented. She is DO NOT RESUSCITATE status. Timing/Duration: 1-2 Days Severity: Moderate Associated Systoms: Weakness Allergies and Home Medications Allergies Coded Allergies: No Known Drug Allergies (Unverified , 01/29/17) Home Medications Albuterol/Ipratropium 4 Gm Aero, 1 PUFF INH 0800,1130,1500,1830 PRN for IF UNABLE TO USE DUONEB, (Reported) Aspirin 81 Mg Tablet.dr, 81 MG PO DAILY, (Reported) Atorvastatin Calcium 80 Mg Tablet, 80 MG PO DAILY, (Reported) Canagliflozin 100 Mg Tablet, 100 MG PO DAILY, (Reported) Clopidogrel Bisulfate 75 Mg Tablet, 75 MG PO DAILY, (Reported) Cranberry Extract 500 Mg Tablet, 1,500 MG PO HS, (Reported) Cyanocobalamin 1,000 Mcg/Ml Inj, 1,000 MCG IJ 23 OF MONTH, (Reported) Cyproheptadine HCl 4 Mg Tablet, 4 MG PO BID, (Reported) Diclofenac Sodium 100 Gm Gel..gram., TOP BID PRN for ARTHRITIS PAIN, (Reported) APPLY TO RIGHT HAND Donepezil HCl 10 Mg Tablet, 10 MG PO HS, (Reported) Ergocalciferol (Vitamin D2) 50,000 Unit Capsule, 50,000 UNITS PO Mo, (Reported) Esomeprazole Magnesium 40 Mg Cap, 40 MG PO DAILY, (Reported) Ferrous Sulfate 325 Mg Tablet, 325 MG PO DAILY, (Reported) Glucagon,Human Recombinant 1 Mg Vial, 1 MG INJ UD PRN for BLOOD SUGAR, (Reported) Insulin Aspart 100 Unit/1 Ml Susp, SC AC, (Reported) BELOW 100 = 0 UNITS 100-130 = 2 UNITS 131-160 = 3 UNITS 161-190 = 4 UNITS 191 OR HIGHER = 5 UNITS Insulin Glargine,Hum.rec.anlog 100 Unit/1 Ml Vial, 23 UNIT SQ HS, (Reported) Ipratropium/Albuterol Sulfate 3 Ml Ampul.neb, 3 ML NEB 0800,1400,2000, (Reported) LBrysonacidoph & ParacaseiB.lactis 1 Each Capsule, 1 CAP PO DAILY, (Reported) Lorazepam 0.5 Mg Tablet, 0.5 MG PO DAILY, (Reported) Lorazepam 0.5 Mg Tablet, 1 MG PO HS, (Reported) TAKES 2 (0.5MG) TABLETS Magnesium Oxide 500 Mg Capsule, 500 MG PO DAILY, (Reported) Melatonin 10 Mg Tablet.er, 10 MG PO HS, (Reported) Pioglitazone HCl 15 Mg Tablet, 15 MG PO DAILY, (Reported) Sodium Hypochlorite 473 Ml Solution, 0 ML TOP UD Prescribed by: CARMEN RAMIREZ on 08/10/18 1050 Venlafaxine HCl 150 Mg Cap.er.24h, 150 MG PO DAILY, (Reported) Patient Home Medication List Home Medication List Reviewed: Yes Review of Systems Review of Systems Constitutional: see HPI EENTM: see HPI Respiratory: no symptoms reported Cardiovascular: no symptoms reported Genitourinary: no symptoms reported Musculoskeletal: no symptoms reported Skin: no symptoms reported Psychiatric/Neurological: No Symptoms Reported Hematologic/Lymphatic: No Symptoms Reported Past Kiiazlu-Wpuitl-Ayogpm Hx Immunizations Up To Date Tetanus Booster (TDap): Unknown PED Vaccines UTD: No Seasonal Allergies Seasonal Allergies: No Past Medical History Surgeries: Yes (CAROTID, STENTS, KYPHOPLASTY, L HIP, R ANKLE) Appendectomy, Coronary Stent, Eye Surgery, 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, Joint Replacement, Orthopedic Respiratory: No Cardiac: Yes (STENTS 2001) Coronary Artery Disease, Heart Attack, High Cholesterol Neurological: Yes Dementia, TIA 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 Disorders: No Female 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 Disorders: 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, Menopausal Sexually Transmitted Disease: No HIV/AIDS: No Genitourinary: No Gastrointestinal: Yes Colitis, Gastroesophageal Reflux, Chronic Diarrhea Musculoskeletal: Yes (COMPR FX L1) Osteoporosis, Arthritis, Chronic Back Pain Endocrine: Yes Diabetes, Insulin dep HEENT: No Loss of Vision: Bilateral Hearing Impairment: Denies Cancer: No Psychosocial: Yes Anxiety Integumentary: No Recent Skin Changes Blood Disorders: No Adverse Reaction/Blood Tranf: No (N/A) Family Medical History Alzheimer's disease (dad) Arthritis (mom) Asthma (sister) Completed stroke (mom) Diabetes mellitus (mom) Fibrocystic disease of breast (sister) Hypercholesterolemia (mom) Hypertension (mom) Myocardial infarction (mom) Neoplasm Parkinson's disease Severe allergy (sister) No Family History of: AIDS Abdominal aortic aneurysm [place]'s disease Alcoholism Aphasia Cancer of mouth Cardiovascular disease Cataracts Colon cancer Congenital disease Congenital heart disease Coronary thrombosis Cystic fibrosis Deafness or hearing loss Dementia Drug abuse Dysphasia Gastroenteritis Glaucoma Headache disorder Infertility Kidney disease Not obtainable due to adoption Osteoporosis (breast cancer) Prostate cancer Psychosocial problem Respiratory disorder Seizure disorder Thyroid disease Visual disorder No Pertinent Family Hx Physical Exam Vital Signs Vital Signs - First Documented 12/13/20 12:03 Temp 36.6 Pulse 100 Resp 20 B/P (MAP) 141/111 (121) Pulse Ox 95 O2 Delivery Nasal Cannula O2 Flow Rate 2.00 FiO2 95 Capillary Refill : Height, Weight, BMI Height: 5'4.00" Weight: 124lbs. 6.0oz. 56.539630ax; 21.00 BMI Method:Stated General Appearance: No Apparent Distress, WD/WN, Other (Mildly, yelling at staff. She is 94% on 2 L. Blood pressure 143/65 heart rate 98.) Eyes: Bilateral Eye Normal Inspection, Bilateral Eye PERRL Neck: Full Range of Motion, Normal Inspection Respiratory: No Accessory Muscle Use, No Respiratory Distress Cardiovascular: Regular Rate, Rhythm, Normal Peripheral Pulses Gastrointestinal: Normal Bowel Sounds, Non Tender, Soft Extremity: Normal Capillary Refill, Normal Inspection Neurologic/Psychiatric: Alert, Oriented x3 Skin: Normal Color, Warm/Dry Focused Exam Lactate Level 12/13/20 12:03: Lactic Acid Level 0.99 Lactic Acid Level Laboratory Tests Test 12/13/20 12:03 Lactic Acid Level 0.99 MMOL/L (0.50-2.00) Progress/Results/Core Measures Suspected Sepsis SIRS Temperature: Pulse: Respiratory Rate: Laboratory Tests 12/13/20 12:03: White Blood Count 18.7H Blood Pressure / Mean: 12/13/20 12:03: Lactic Acid Level 0.99 Laboratory Tests 12/13/20 12:03: Creatinine 0.66, INR Comment 1.1, Platelet Count 370, Total Bilirubin 0.7 Results/Orders Lab Results Laboratory Tests Test 12/13/20 12:03 12/13/20 12:07 12/13/20 12:11 12/13/20 12:36 Range/Units White Blood Count 18.7 H 4.3-11.0 10^3/uL Red Blood Count 5.40 H 3.80-5.11 10^6/uL Hemoglobin 15.2 11.5-16.0 g/dL Hematocrit 46 35-52 % Mean Corpuscular Volume 86 80-99 fL Mean Corpuscular Hemoglobin 28 25-34 pg Mean Corpuscular Hemoglobin Concent 33 32-36 g/dL Red Cell Distribution Width 15.7 H 10.0-14.5 % Platelet Count 370 130-400 10^3/uL Mean Platelet Volume 11.4 9.0-12.2 fL Immature Granulocyte % (Auto) 0 % Neutrophils (%) (Auto) 82 H 42-75 % Lymphocytes (%) (Auto) 5 L 12-44 % Monocytes (%) (Auto) 11 0-12 % Eosinophils (%) (Auto) 1 0-10 % Basophils (%) (Auto) 0 0-10 % Neutrophils # (Auto) 15.4 H 1.8-7.8 10^3/uL Lymphocytes # (Auto) 1.0 1.0-4.0 10^3/uL Monocytes # (Auto) 2.1 H 0.0-1.0 10^3/uL Eosinophils # (Auto) 0.1 0.0-0.3 10^3/uL Basophils # (Auto) 0.1 0.0-0.1 10^3/uL Immature Granulocyte # (Auto) 0.1 0.0-0.1 10^3/uL Neutrophils % (Manual) 82 % Lymphocytes % (Manual) 5 % Monocytes % (Manual) 11 % Eosinophils % (Manual) 2 % Blood Morphology Comment NORMAL Prothrombin Time 14.4 12.2-14.7 SEC INR Comment 1.1 0.8-1.4 Activated Partial Thromboplast Time 40 H 24-35 SEC Sodium Level 143 135-145 MMOL/L Potassium Level 5.2 H 3.6-5.0 MMOL/L Chloride Level 104 98-107 MMOL/L Carbon Dioxide Level 26 21-32 MMOL/L Anion Gap 13 5-14 MMOL/L Blood Urea Nitrogen 15 7-18 MG/DL Creatinine 0.66 0.60-1.30 MG/DL Estimat Glomerular Filtration Rate 86 BUN/Creatinine Ratio 23 Glucose Level 245 H 70-105 MG/DL Lactic Acid Level 0.99 0.50-2.00 MMOL/L Calcium Level 9.1 8.5-10.1 MG/DL Corrected Calcium 10.0 8.5-10.1 MG/DL Total Bilirubin 0.7 0.1-1.0 MG/DL Aspartate Amino Transf (AST/SGOT) 32 5-34 U/L Alanine Aminotransferase (ALT/SGPT) 29 0-55 U/L Alkaline Phosphatase 182 H 40-136 U/L B-Type Natriuretic Peptide 49.0 <100.0 PG/ML Total Protein 6.7 6.4-8.2 GM/DL Albumin 2.9 L 3.2-4.5 GM/DL Influenza Type A (RT-PCR) Not Detected Not Detecte Influenza Type B (RT-PCR) Not Detected Not Detecte SARS-CoV-2 RNA (RT-PCR) Not Detected Not Detecte Blood Gas Puncture Site RT RAD Blood Gas Patient Temperature 36.6 Arterial Blood pH 7.39 7.37-7.43 Arterial Blood Partial Pressure CO2 46 H 35-45 MMHG Arterial Blood Partial Pressure O2 72 L 79-93 MMHG Arterial Blood HCO3 27 23-27 MMOL/L Arterial Blood Total CO2 28.7 21.0-31.0 MMOL/L Arterial Blood Oxygen Saturation 94 94-100 % Arterial Blood Base Excess 2.7 H -2.5-2.5 MMOL/L Matheus Test YES-POS Blood Gas Ventilator Setting NO Blood Gas Inspired Oxygen 2 L Urine Color YELLOW Urine Clarity TURBID Urine pH 6.5 5-9 Urine Specific [place] 1.020 1.016-1.022 Urine Protein 4+ NEGATIVE Urine Glucose (UA) NEGATIVE NEGATIVE Urine Ketones 4+ H NEGATIVE Urine Nitrite NEGATIVE NEGATIVE Urine Bilirubin NEGATIVE NEGATIVE Urine Urobilinogen NORMAL < = 1.0 MG/DL Urine Leukocyte Esterase 3+ H NEGATIVE Urine RBC (Auto) 4+ H NEGATIVE Urine RBC TNTC H /HPF Urine WBC TNTC H /HPF Urine Crystals NONE /LPF Urine Bacteria LARGE H /HPF Urine Casts NONE /LPF Urine Mucus NEGATIVE /LPF Urine Culture Indicated CULTURE PENDING My Orders Orders - ROBERT JAMISON APRN Covid 19 Inhouse Test (12/13/20 12:09) Influenza A And B By Pcr (12/13/20 12:09) Cbc With Automated Diff (12/13/20 12:09) Comprehensive Metabolic Panel (12/13/20 12:09) Blood Culture (12/13/20 12:09) Sputum Culture (12/13/20 12:09) Urinalysis (12/13/20 12:09) Urine Culture (12/13/20 12:09) Protime With Inr (12/13/20 12:09) Partial Thromboplastin Time (12/13/20 12:09) Chest 1 View, Ap/Pa Only (12/13/20 12:09) Ed Iv/Invasive Line Start (12/13/20 12:09) Vital Signs Adult Sepsis Patie Q15M (12/13/20 12:09) O2 (12/13/20 12:09) Remove Rings In Anticipation O (12/13/20 12:09) Lactic Acid Analyzer (12/13/20 12:09) BNP (12/13/20 12:09) Ekg Tracing (12/13/20 12:09) Arterial Blood Gas (12/13/20 12:17) Manual Differential (12/13/20 12:03) Ceftriaxone (Rocephin) (12/13/20 14:00) Vital Signs/I&O 12/13/20 12/13/20 12/13/20 12:03 12:03 12:03 Temp 36.6 36.6 Pulse 100 100 Resp 20 20 B/P (MAP) 141/111 (121) 141/111 (121) Pulse Ox 95 95 O2 Delivery Nasal Cannula Nasal Cannula Nasal Cannula O2 Flow Rate 2.00 2.00 2.00 FiO2 95 Capillary Refill : Departure Communication (Admissions) 1221 EKG shows sinus rhythm rate of [address] segment change no ectopy 1353-she received 1 L of fluids here, Rocephin. Lethargic. Currently heart rate 99 blood pressure 140 systolic oxygen is 95% on 2 L. I will turn her oxygen off because he does not seem that she needs it. She has certainly not been hypoxic with us even on minimal oxygen supplementation. I will write for it as needed on the medical floor. Impression Primary Impression: UTI (urinary tract infection) Additional Impression: Sepsis Disposition: ADMITTED INPATIENT Condition: Stable Admissions Decision to Admit Reason: Admit from ER (General) Decision to Admit/Date: Dec 13, 2020 Time/Decision to Admit Time: 12:18 Departure-Patient Inst. Referrals: JOSEY RIDER DO (PCP/Family) Primary Care Physician ROBERT JAMISON APRN Dec 13, 2020 12:18
[2020-12-13 12:24] LABS: ABG BASE EXCESS 2.7 MMOL/L (-2.5-2.5); ABG OXYGEN SATURATION 94 % (94-100); ABG PCO2 46 MMHG (35-45); ABG PH 7.39 (7.37-7.43); ABG PO2 72 MMHG (79-93); ABG TCO2 28.7 MMOL/L (21.0-31.0)
[2020-12-13 12:26] LABS: ALLENS TEST YES-POS; INSPIRED O2 2 L; PATIENT TEMP 36.6; VENTILATOR NO
[2020-12-13 12:32] LABS: BASOPHILS # (AUTO) 0.1 10^3/uL (0.0-0.1); BASOPHILS % (AUTO) 0 % (0-10); EOSINOPHILS # (AUTO) 0.1 10^3/uL (0.0-0.3); EOSINOPHILS % (AUTO) 1 % (0-10); HEMATOCRIT 46 % (35-52); HEMOGLOBIN 15.2 g/dL (11.5-16.0); LYMPHOCYTES % (AUTO) 5 % (12-44); MEAN CORPUSCULAR HEMOGLOBIN 28 pg (25-34); MEAN CORPUSCULAR HGB CONC 33 g/dL (32-36); MEAN CORPUSCULAR VOLUME 86 fL (80-99); MEAN PLATELET VOLUME 11.4 fL (9.0-12.2); MONOCYTES # (AUTO) 2.1 10^3/uL (0.0-1.0); MONOCYTES % (AUTO) 11 % (0-12); NEUTROPHILS # (AUTO) 15.4 10^3/uL (1.8-7.8); NEUTROPHILS % (AUTO) 82 % (42-75); PLATELET COUNT 370 10^3/uL (130-400); WHITE BLOOD COUNT 18.7 10^3/uL (4.3-11.0)
[2020-12-13 12:38] LABS: ALBUMIN 2.9 GM/DL (3.2-4.5)
[2020-12-13 12:40] LABS: CALCIUM 9.1 MG/DL (8.5-10.1)
[2020-12-13 12:41] LABS: INR 1.1 (0.8-1.4); PROTHROMBIN TIME PATIENT 14.4 SEC (12.2-14.7); TOTAL PROTEIN 6.7 GM/DL (6.4-8.2)
[2020-12-13 12:43] LABS: BILIRUBIN,TOTAL 0.7 MG/DL (0.1-1.0)
[2020-12-13 12:45] LABS: CREATININE SERUM 0.66 MG/DL (0.60-1.30)
[2020-12-13 12:47] LABS: POTASSIUM 5.2 MMOL/L (3.6-5.0)
[2020-12-13 12:57] LABS: BILIRUBIN,URINE NEGATIVE (NEGATIVE); CLARITY,URINE TURBID; COLOR,URINE YELLOW; GLUCOSE, URINE (UA) NEGATIVE (NEGATIVE); KETONES,URINE 4+ (NEGATIVE); NITRITE,URINE NEGATIVE (NEGATIVE); PH,URINE 6.5 (5-9); PROTEIN,URINE 4+ (NEGATIVE)
[2020-12-13 12:58] LABS: LEUKOCYTE ESTERASE ,URINE 3+ (NEGATIVE)
[2020-12-13 12:59] LABS: BACTERIA,URINE LARGE /HPF; RBC,URINE TNTC /HPF; WBC,URINE TNTC /HPF
[2020-12-13 13:11] LABS: EOSINOPHILS % (MANUAL) 2 %; LYMPHOCYTES % (MANUAL) 5 %; MONOCYTES % (MANUAL) 11 %; NEUTROPHILS % (MANUAL) 82 %
[2020-12-13 13:12] LABS: RBC MORPH NORMAL
--- NOTE | 2020-12-13 13:12 | Diagnostic Imaging Report ---
INDICATION: Sepsis. Comparison with 04/07/2019. FINDINGS: Portable chest. Mild basilar atelectasis bilaterally with poor overall infiltrate effort. No definite consolidated infiltrates. Heart mildly enlarged. Aorta is atherosclerotic and ectatic. No evidence of pulmonary edema. No pleural effusions. No bony abnormalities. IMPRESSION: Poor overall inspiration with mild basilar atelectasis. No acute infiltrates demonstrated. Dictated by: Dictated on workstation # [id number]
[2020-12-13] MEDS ORDERED: cefTRIAXone 1,000 MG in WATER (STERILE) FOR INJECTION 10 ML IV ONE (14:00)
[2020-12-13] MEDS ORDERED: ONDANSETRON 4 MG/2 ML (SDV) Z0FRAN IVP PRN ×2 (15:30)
[2020-12-13] MEDS ORDERED: ACETAMINOPHEN 325 MG SUPP (TYLENOL) PR PRN (15:30)
[2020-12-13] MEDS ORDERED: LORA-404 PO (15:54)
[2020-12-13] MEDS ORDERED: MULT-166 PO (15:54)
[2020-12-13] MEDS ORDERED: ERGO1250 PO (15:54)
[2020-12-13] MEDS ORDERED: MAG-10 PO (15:54)
[2020-12-13] MEDS ORDERED: LACT1CAP76 PO (15:54)
[2020-12-13] MEDS ORDERED: CHOL100048 PO (15:54)
[2020-12-13] MEDS ORDERED: MAGN400T7 PO (15:54)
[2020-12-13] MEDS ORDERED: ASPI-1238 PO (15:54)
[2020-12-13] MEDS ORDERED: MAGN400O7 PO (15:54)
[2020-12-13] MEDS ORDERED: HYDR-3817 PO (15:54)
[2020-12-13] MEDS ORDERED: DIVA125C10 PO (15:54)
[2020-12-13] MEDS ORDERED: PANT20TA18 PO (15:54)
[2020-12-13] MEDS ORDERED: ACET325T38 PO (15:54)
[2020-12-13 16:00] VITALS: BP 126/79
[2020-12-13] MEDS: LACTATED RINGERS 1,000 ML IV SCH ×2 (17:36→22:26)
[2020-12-13] MEDS: inSUlin ASPART (NovoLOG) 1 UNIT/0.01 ML (CHARGE PER UNIT) SC SCH ×2 (17:59→20:40)
[2020-12-13] MEDS: ACETAMINOPHEN 325 MG TABLET PO PRN ×2 (18:00→22:23)
[2020-12-13 19:48] VITALS: BP 93/57
[2020-12-13 23:22] VITALS: BP 107/67
[2020-12-14] MEDS: LACTATED RINGERS 1,000 ML IV SCH ×4 (00:31→23:53)
[2020-12-14 03:21] VITALS: BP 116/74
[2020-12-14 05:30] LABS: BASOPHILS # (AUTO) 0.1 10^3/uL (0.0-0.1); BASOPHILS % (AUTO) 1 % (0-10); EOSINOPHILS # (AUTO) 0.3 10^3/uL (0.0-0.3); EOSINOPHILS % (AUTO) 2 % (0-10); HEMATOCRIT 45 % (35-52); HEMOGLOBIN 14.5 g/dL (11.5-16.0); LYMPHOCYTES # (AUTO) 1.6 10^3/uL (1.0-4.0); LYMPHOCYTES % (AUTO) 8 % (12-44); MEAN CORPUSCULAR HEMOGLOBIN 28 pg (25-34); MEAN CORPUSCULAR HGB CONC 32 g/dL (32-36); MEAN CORPUSCULAR VOLUME 87 fL (80-99); MONOCYTES # (AUTO) 2.8 10^3/uL (0.0-1.0); MONOCYTES % (AUTO) 14 % (0-12); NEUTROPHILS % (AUTO) 75 % (42-75); PLATELET COUNT 310 10^3/uL (130-400)
[2020-12-14 05:40] LABS: POTASSIUM 3.9 MMOL/L (3.6-5.0)
[2020-12-14 05:41] LABS: CALCIUM 8.9 MG/DL (8.5-10.1)
[2020-12-14] MEDS: inSUlin ASPART (NovoLOG) 1 UNIT/0.01 ML (CHARGE PER UNIT) SC SCH ×4 (05:43→21:11)
[2020-12-14 05:46] LABS: CREATININE SERUM 0.58 MG/DL (0.60-1.30)
[2020-12-14 07:45] VITALS: BP 144/83
[2020-12-14 11:10] VITALS: BP 138/69
--- NOTE | 2020-12-14 13:01 | History & Physical-Hospitalist ---
History of Present Illness HPI/Chief Complaint Ros Vinson is an 80-year-old female with past medical history of coronary artery disease, hyperlipidemia, cerebrovascular disease, type 2 diabetes mellitus, advanced dementia, who presented with lethargy. She is a long-term correction resident. She was found to be more lethargic than usual. She is unable to provide any history due to her advanced dementia making her a poor historian. Her daughter is at the bedside and provided some history. She states that she is normally more alert and able to have a conversation. She does have issues with confusion. 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 Source: family Exam Limitations: clinical condition Date Seen 12/14/20 Time Seen by a Provider: 11:15 Attending Physician Lacho Dasilva MD PCP Go Lan DO Referring Physician Date of Admission Dec 13, 2020 at 13:56 Home Medications & Allergies Home Medications Reviewed patient Home Medication Reconciliation performed by pharmacy medication reconciliations distribution technician and/or nursing. Patients Allergies have been reviewed. Allergies Allergies Coded Allergies No Known Drug Allergies (Unverified01/29/17) Past Aykiblh-Xgqmfj-Qcbhuo Hx Patient Social History Tobacco Use?: No Substance use?: No Alcohol Use?: No Additional Alcohol Comments: PT UNABLE TO GIVE HISTORY Pt feels they are or have been: Unable to obtain Immunizations Up To Date Date of Influenza Vaccine: Mar 10, 2018 Tetanus Booster (TDap): Unknown Hepatitis A: No Hepatitis B: No PED Vaccines UTD: No Date of Pneumonia Vaccine: Jan 08, 2014 Seasonal Allergies Seasonal Allergies: No Current Status status: No status: No Advance Directives: Yes Advance Directive Location: Copy placed in chart Communicates: Verbally Primary Language: Macanese Preferred Spoken Language: Macanese Is interpretation needed?: No Implanted or Applied Medical D: None Past Medical History Surgeries: Appendectomy, Coronary Stent, Eye Surgery, 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, Joint Replacement, Orthopedic Coronary Artery Disease, Heart Attack, High Cholesterol Dementia, TIA 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, 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 Sexually Transmitted Disease: No HIV/AIDS: No Colitis, Gastroesophageal Reflux, Chronic Diarrhea Osteoporosis, Arthritis, Chronic Back Pain Diabetes, Insulin dep Loss of Vision: Bilateral Hearing Impairment: Denies Anxiety Recent Skin Changes Blood Disorders: No Adverse Reaction/Blood Tranf: No (N/A) Family Medical History Alzheimer's disease (dad) Arthritis (mom) Asthma (sister) Completed stroke (mom) Diabetes mellitus (mom) Fibrocystic disease of breast (sister) Hypercholesterolemia (mom) Hypertension (mom) Myocardial infarction (mom) Neoplasm Parkinson's disease Severe allergy (sister) No Family History of: AIDS Abdominal aortic aneurysm [place]'s disease Alcoholism Aphasia Cancer of mouth Cardiovascular disease Cataracts Colon cancer Congenital disease Congenital heart disease Coronary thrombosis Cystic fibrosis Deafness or hearing loss Dementia Drug abuse Dysphasia Gastroenteritis Glaucoma Headache disorder Infertility Kidney disease Not obtainable due to adoption Osteoporosis (breast cancer) Prostate cancer Psychosocial problem Respiratory disorder Seizure disorder Thyroid disease Visual disorder No Pertinent Family Hx Review of Systems ROS-Unable to Obtain: Dementia Constitutional: see HPI Physical Exam Physical Exam Vital Signs Vital Signs - First Documented 12/13/20 12:03 Temp 36.6 Pulse 100 Resp 20 B/P (MAP) 141/111 (121) Pulse Ox 95 O2 Delivery Nasal Cannula O2 Flow Rate 2.00 FiO2 95 Capillary Refill : Less Than 3 Seconds Height, Weight, BMI Height: 5'4.00" Weight: 124lbs. 6.0oz. 56.583027ns; 27.58 BMI Method:Stated General Appearance: No Apparent Distress, Chronically ill HEENT: PERRL/EOMI, Pharynx Normal Neck: Normal Inspection, Supple Respiratory: Lungs Clear, Normal Breath Sounds, No Respiratory Distress Cardiovascular: Regular Rate, Rhythm, No Edema, No Murmur Gastrointestinal: Normal Bowel Sounds, Non Tender, Soft Extremity: Normal Inspection, No Pedal Edema Neurologic/Psychiatric: Alert, Depressed Affect, Disoriented, Motor Weakness Skin: Warm/Dry, Pallor Results Results/Procedures Labs Laboratory Tests 12/13/20 12:03 12/14/20 05:17 Patient resulted labs reviewed. Imaging: Reviewed Imaging Report Assessment/Plan Admission Diagnosis Sepsis due to urinary tract infection Admission Status: Inpatient Order (span 2 midnights) Reason for Inpatient Admission: UTI requiring antibiotics Assessment and Plan Sepsis due to urinary tract infection UA consistent with UTI Urine culture pending Started on Rocephin WBC trending up today, monitor Procalcitonin elevated Blood cultures pending CAD HLD History of CVA GERD Depression Continue home meds T2DM Sliding scale insulin DVT prophylaxis: Lovenox Diagnosis/Problems Diagnosis/Problems (1) Sepsis Status: Acute (2) UTI (urinary tract infection) Status: Acute Qualifiers: Urinary tract infection type: acute cystitis Hematuria presence: with hematuria Qualified Codes: N30.01 - Acute cystitis with hematuria (3) Insulin dependent diabetes mellitus (4) Dementia Status: Chronic Qualifiers: Dementia type: Alzheimer's Alzheimer's disease onset: late-onset Dementia behavioral disturbance: without behavioral disturbance Qualified Codes: G30.1 - Alzheimer's disease with late onset; F02.80 - Dementia in other diseases classified elsewhere without behavioral disturbance LACHO DASILVA MD Dec 14, 2020 13:01
[2020-12-14] MEDS: cefTRIAXone 1,000 MG/SWFI 10 ML IV PUSH IV SCH ×2 (13:53)
[2020-12-14] MEDS: ENOXAPARIN 40 MG/0.4 ML (LOVENOX) SYR SC SCH (13:53)
[2020-12-14 16:00] VITALS: BP 127/71
[2020-12-14] MEDS: ACETAMINOPHEN 325 MG TABLET PO PRN ×2 (18:52→19:04)
[2020-12-14 19:36] VITALS: BP 100/58
[2020-12-14] MEDS: DIVALPROX SPRINKLE 125 MG (DEPAKOTE) CAP PO SCH (19:52)
[2020-12-14] MEDS: LORazepam 0.5 MG (ATIVAN) TABLET PO SCH (19:52)
[2020-12-14] MEDS: DONEPEZIL 10 MG (ARICEPT) TAB PO SCH (19:52)
[2020-12-15] VITALS (7 sets, daily range): BP systolic 124–166; BP diastolic 60–86
[2020-12-15 05:57] LABS: BASOPHILS # (AUTO) 0.1 10^3/uL (0.0-0.1); BASOPHILS % (AUTO) 1 % (0-10); EOSINOPHILS # (AUTO) 0.3 10^3/uL (0.0-0.3); EOSINOPHILS % (AUTO) 3 % (0-10); HEMATOCRIT 42 % (35-52); HEMOGLOBIN 13.7 g/dL (11.5-16.0); LYMPHOCYTES # (AUTO) 1.8 10^3/uL (1.0-4.0); LYMPHOCYTES % (AUTO) 14 % (12-44); MEAN CORPUSCULAR HEMOGLOBIN 28 pg (25-34); MEAN CORPUSCULAR HGB CONC 33 g/dL (32-36); MEAN CORPUSCULAR VOLUME 86 fL (80-99); MEAN PLATELET VOLUME 11.2 fL (9.0-12.2); MONOCYTES # (AUTO) 1.2 10^3/uL (0.0-1.0); MONOCYTES % (AUTO) 10 % (0-12); NEUTROPHILS # (AUTO) 9.5 10^3/uL (1.8-7.8); NEUTROPHILS % (AUTO) 73 % (42-75); PLATELET COUNT 292 10^3/uL (130-400)
[2020-12-15] MEDS: inSUlin ASPART (NovoLOG) 1 UNIT/0.01 ML (CHARGE PER UNIT) SC SCH ×4 (06:07→20:42)
[2020-12-15 06:13] LABS: POTASSIUM 3.3 MMOL/L (3.6-5.0)
[2020-12-15 06:14] LABS: CALCIUM 8.6 MG/DL (8.5-10.1)
[2020-12-15 06:18] LABS: CREATININE SERUM 0.59 MG/DL (0.60-1.30)
[2020-12-15] MEDS: VENlafaxine XR 75 MG (EFFEXOR XR) CAP PO SCH (07:04)
[2020-12-15] MEDS: PANTOPRAZOLE 20 MG TABLET (PROTONIX) PO SCH (08:06)
[2020-12-15] MEDS: DIVALPROX SPRINKLE 125 MG (DEPAKOTE) CAP PO SCH ×2 (08:07→20:00)
[2020-12-15] MEDS: CLOPIDOGREL 75 MG (PLAVIX) TABLET PO SCH (08:07)
[2020-12-15] MEDS: ASPIRIN E.C. 81 MG (ECOTRIN) TAB PO SCH (08:07)
[2020-12-15] MEDS: LACTATED RINGERS 1,000 ML IV SCH ×2 (08:41→18:00)
[2020-12-15] MEDS: CYPROHEPTADINE (PERIACTIN) 4 MG TAB PO SCH (09:29)
--- NOTE | 2020-12-15 11:34 | Diagnostic Imaging Report ---
PROCEDURE: CT abdomen and pelvis without contrast. TECHNIQUE: Multiple contiguous axial images were obtained through the abdomen and pelvis without the use of intravenous contrast. Auto Exposure Controls were utilized during the CT exam to meet ALARA standards for radiation dose reduction. INDICATION: Abdominal pain The previous CT abdomen/pelvis exam of 02/16/2017 failed to show any sign of an acute abnormality. There was moderate dilatation of the urinary bladder with multiple bladder diverticula. There is also a question of cystitis. On this exam, the bladder is not well evaluated as the bladder is decompressed by a Watson catheter. The bladder wall does seem thickened but this may be related to incomplete distention. The bladder diverticula seen previously are difficult to appreciate. There is diverticulosis of the sigmoid and descending colon but there is no sign of acute diverticulitis. The appendix was not well-visualized but there are no indirect signs of acute appendicitis. As on the prior exam, there is cholelithiasis. The gallbladder is somewhat more distended on the prior exam. There may be slight thickening of the gallbladder wall. There is no pericholecystic fluid to suggest acute cholecystitis. If further study is desired, ultrasound would be recommended. The liver, spleen, pancreas, adrenals, kidneys, aorta and inferior vena cava are unremarkable for an acute abnormality. The stomach is filled with fluid of particulate matter and difficult to assess. There is mild atelectasis/infiltrate involving the lung bases. The bone windows show no evidence for an acute abnormality. The total hip prosthesis on the right seen previously is again evident although the acetabular component of the prosthesis does seem slightly rotated when compared to the prior exam. 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 IMPRESSION: 1. There is cholelithiasis and the slight thickening of the gallbladder wall does raise the question of acute cholecystitis. Recommendations as above. 2. There is no acute abnormality of the abdomen or pelvis noted otherwise. 3. The urinary bladder is decompressed by a Watson catheter and difficult to assess. 4. There is mild bibasilar atelectasis/infiltrate. 5. 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 Dictated by: Dictated on workstation # [id number]
[2020-12-15] MEDS: cefTRIAXone 1,000 MG/SWFI 10 ML IV PUSH IV SCH ×2 (13:13)
[2020-12-15] MEDS: ENOXAPARIN 40 MG/0.4 ML (LOVENOX) SYR SC SCH (13:13)
--- NOTE | 2020-12-15 13:24 | Progress Note - Hospitalist ---
Subjective HPI/CC On Admission Date Seen by Provider: Dec 15, 2020 Time Seen by Provider: 11:35 Ros Vinson is an 80-year-old female with past medical history of coronary artery disease, hyperlipidemia, cerebrovascular disease, type 2 diabetes mellitus, advanced dementia, who presented with lethargy. She is a long-term long-term resident. She was found to be more lethargic than usual. She is unable to provide any history due to her advanced dementia making her a poor historian. Her daughter is at the bedside and provided some history. She states that she is normally more alert and able to have a conversation. She does have issues with confusion. 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 Subjective/Events-last exam She is sleeping. She is irritable and uncooperative when awoken. Her daughter is present and all questions and concerns were addressed. Focused Exam Lactate Level 12/13/20 12:03: Lactic Acid Level 0.99 Objective Exam Vital Signs Vital Signs Date Time Temp Pulse Resp B/P (MAP) Pulse Ox O2 Delivery O2 Flow Rate FiO2 12/15/20 12:00 35.9 84 16 124/77 (93) 95 Nasal Cannula 2.00 12/13/20 20:53 95 Capillary Refill : Less Than 3 Seconds General Appearance: No Apparent Distress, Chronically ill Respiratory: Lungs Clear, Normal Breath Sounds, No Respiratory Distress Cardiovascular: Regular Rate, Rhythm, No Murmur Gastrointestinal: Normal Bowel Sounds, Non Tender, Soft; No Distended, No Guarding Extremity: Normal Inspection, Non Tender, Pedal Edema Neurologic/Psychiatric: Alert, Disoriented, Other (Irritable, uncooperative) Skin: Normal Color, Warm/Dry Results/Procedures Lab Laboratory Tests 12/15/20 05:45 Patient resulted labs reviewed. Imaging: Reviewed Imaging Report Assessment/Plan Assessment and Plan Assess & Plan/Chief Complaint Sepsis due to urinary tract infection UA consistent with UTI Urine culture growing two strains of Aerococcus, sensitivities pending Continue Rocephin WBC down today, procalcitonin trending up CT Abdomen showed possible acute cholecystitis, no other acute abnormalities Blood cultures with no growth to date CAD HLD History of CVA GERD Depression Continue home meds T2DM Sliding scale insulin DVT prophylaxis: Lovenox Diagnosis/Problems Diagnosis/Problems (1) Sepsis Status: Acute (2) UTI (urinary tract infection) Status: Acute Qualifiers: Urinary tract infection type: acute cystitis Hematuria presence: with hematuria Qualified Codes: N30.01 - Acute cystitis with hematuria (3) Insulin dependent diabetes mellitus (4) Dementia Status: Chronic Qualifiers: Dementia type: Alzheimer's Alzheimer's disease onset: late-onset Dementia behavioral disturbance: without behavioral disturbance Qualified Codes: G30.1 - Alzheimer's disease with late onset; F02.80 - Dementia in other diseases classified elsewhere without behavioral disturbance LACHO DASILVA MD Dec 15, 2020 13:24
[2020-12-15] MEDS ORDERED: LORazepam 0.5 MG (ATIVAN) TABLET PO ONE (16:30)
[2020-12-15] MEDS: DONEPEZIL 10 MG (ARICEPT) TAB PO SCH (20:00)
[2020-12-15] MEDS: LORazepam 0.5 MG (ATIVAN) TABLET PO SCH (20:00)
[2020-12-16 04:00] VITALS: BP 112/65
[2020-12-16] MEDS: inSUlin ASPART (NovoLOG) 1 UNIT/0.01 ML (CHARGE PER UNIT) SC SCH ×4 (05:14→20:25)
[2020-12-16] MEDS: LACTATED RINGERS 1,000 ML IV SCH ×2 (05:57→23:11)
[2020-12-16] MEDS: VENlafaxine XR 75 MG (EFFEXOR XR) CAP PO SCH (05:59)
[2020-12-16 08:00] VITALS: BP 124/72
[2020-12-16] MEDS: DIVALPROX SPRINKLE 125 MG (DEPAKOTE) CAP PO SCH ×2 (09:00→19:59)
[2020-12-16] MEDS: ASPIRIN E.C. 81 MG (ECOTRIN) TAB PO SCH (09:00)
[2020-12-16] MEDS: CLOPIDOGREL 75 MG (PLAVIX) TABLET PO SCH (09:00)
[2020-12-16] MEDS: CYPROHEPTADINE (PERIACTIN) 4 MG TAB PO SCH (09:00)
[2020-12-16] MEDS: PANTOPRAZOLE 20 MG TABLET (PROTONIX) PO SCH (09:00)
--- NOTE | 2020-12-16 11:08 | Progress Note - Hospitalist ---
Subjective HPI/CC On Admission Date Seen by Provider: Dec 16, 2020 Time Seen by Provider: 11:05 Ros Vinson is an 80-year-old female with past medical history of coronary artery disease, hyperlipidemia, cerebrovascular disease, type 2 diabetes mellitus, advanced dementia, who presented with lethargy. She is a long-term long term resident. She was found to be more lethargic than usual. She is unable to provide any history due to her advanced dementia making her a poor historian. Her daughter is at the bedside and provided some history. She states that she is normally more alert and able to have a conversation. She does have issues with confusion. 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 Subjective/Events-last exam Pt is laying in bed sleeping. Daughter at bedside. No complaints. States pt looks better today than she has and is starting to "get sassy" again. Answered all daughter's questions. Focused Exam Lactate Level 12/13/20 12:03: Lactic Acid Level 0.99 Objective Exam Vital Signs Vital Signs Date Time Temp Pulse Resp B/P (MAP) Pulse Ox O2 Delivery O2 Flow Rate FiO2 12/16/20 08:00 Nasal Cannula 2.00 12/16/20 08:00 36.6 88 20 124/72 (89) 98 12/13/20 20:53 95 Capillary Refill : Less Than 3 Seconds General Appearance: No Apparent Distress, Chronically ill Respiratory: Lungs Clear, No Respiratory Distress Cardiovascular: Regular Rate, Rhythm, No Murmur Neurologic/Psychiatric: Alert (sleeping soundly) Results/Procedures Lab Patient resulted labs reviewed. Imaging: Reviewed Imaging Report Assessment/Plan Assessment and Plan Assess & Plan/Chief Complaint Sepsis due to urinary tract infection UA consistent with UTI Urine culture growing two strains of Aerococcus, sensitivities pending still Continue Rocephin Labs pending today CT Abdomen showed possible acute cholecystitis, no other acute abnormalities Discussed with Dr Ansari who reviewed imaging and given nontender abd recommended conservative management Blood cultures with no growth to date CAD HLD History of CVA GERD Depression Continue home meds T2DM Sliding scale insulin DVT prophylaxis: BRENDA Bernabe MD Dec 16, 2020 11:08
[2020-12-16 11:45] LABS: HEMATOCRIT 47 % (35-52); MEAN CORPUSCULAR HEMOGLOBIN 28 pg (25-34); MEAN CORPUSCULAR HGB CONC 32 g/dL (32-36); MEAN CORPUSCULAR VOLUME 87 fL (80-99); MEAN PLATELET VOLUME 10.8 fL (9.0-12.2); PLATELET COUNT 327 10^3/uL (130-400); WHITE BLOOD COUNT 9.5 10^3/uL (4.3-11.0)
[2020-12-16 11:58] LABS: POTASSIUM 3.2 MMOL/L (3.6-5.0)
[2020-12-16 12:00] VITALS: BP 108/58
[2020-12-16 12:00] LABS: CALCIUM 8.9 MG/DL (8.5-10.1)
[2020-12-16 12:04] LABS: CREATININE SERUM 0.64 MG/DL (0.60-1.30)
[2020-12-16] MEDS: cefTRIAXone 1,000 MG/SWFI 10 ML IV PUSH IV SCH ×2 (13:35)
[2020-12-16] MEDS: ENOXAPARIN 40 MG/0.4 ML (LOVENOX) SYR SC SCH (13:35)
--- NOTE | 2020-12-16 14:02 | Physical Therapy Evaluation ---
PT Evaluation-General Medical Diagnosis Admission Date Dec 13, 2020 at 13:56 Medical Diagnosis: UTI/sepsis Onset Date: Dec 13, 2020 Therapy Diagnosis Therapy Diagnosis: debility Height/Weight Height (Feet): 5 Height (Inches): 4.00 Weight (Pounds): 124 Weight (Ounces): 6.0 Precautions Precautions/Isolations: Fall Prevention, Standard Precautions Referral Physician: Efe Reason for Referral: Evaluation/Treatment Medical History Pertinent Medical History: Arthritis, CAD, DM, Dementia, GERD, NE, Smoking Current History EMS from [place] secondary to lethargy Reviewed History: Yes Social History Home: Skilled Nursing Prior Prior Level of Function SCALE: Activities may be completed with or without assistive devices. 4-Qiysjxhyvt-urvpbuj completes the activity by him/herself with no assistance from a helper. 5-Set-up or Clean-up Assistance-helper sets up or cleans up; patient completes activity. [place] assists only prior to or following the activity. 4-Supervision or Touching Assistance-helper provides verbal cues and/or touching/steadying and/or contact guard assistance as patient completes activity. Assistance may be provided throughout the activity or intermittently. 3-Partial/Moderate Assistance-helper does LESS THAN HALF the effort. [place] lifts, holds or supports trunk or limbs, but provides less than half the effort. 2-Substantial/Maximal Assistance-helper does MORE THAN HALF the effort. [place] lifts or holds trunk or limbs and provides more than half the effort. 4-Awftazkdf-tanecu does ALL the effort. Patient does none of the effort to complete the activity. Or, the assistance of 2 or more helpers is required for the patient to complete the activity. If activity was not attempted, code reason: 7-Patient Refused. 9-Not Applicable-not attempted and the patient did not perform the activity before the current illness, exacerbation or injury. 10-Not Attempted due to Environmental Limitations-(lack of equipment, weather restraints, etc.). 88-Not Attempted due to Medical Conditions or Safety Concerns. Bed Mobility: 1 Transfers (B,C,W/C): 1 (Lior) Gait: 9 Stairs: 9 Wheelchair Mobility: 1 Prior Devices Use: Manual wheelchair, Mechanical lift PT Evaluation-Current Subjective Patient does agree to up to chair. Objective Patient Orientation: Confused Attachments: Oxygen, Watson Catheter, IV ROM/Strength ROM Lower Extremities bilateral LE WFL Strength Lower Extremities 2-/5 grossly bilateral LE Integumentary/Posture Integumentary refer to nursing notes Bladder Incontinence: Watson Cath Neuromuscular (Tone, Coordination, Reflexes) severely diminished with all Sensory Vision: Functional Hearing: Impaired Transfers Roll Left to Right (QC): 1 Chair/Mzz-me-Leqyv Xfer(QC): 1 (Lior lift) Gait Does the Patient Walk?: No and Walking Goal NOT indicated Assessment/Needs Patient will be seen short term by skilled PT to address OOB activity. Impaired strength and mobility Rehab Potential: Poor PT Short Term Goals Short Term Goals Time Frame: Dec 20, 2020 Roll Left & Right: 1 Chair/dhk-ga-cclvo transfer: 1 PT Plan Problem List Problem List: Activity Tolerance, Functional Strength, Safety, Transfer, Bed Mobility Treatment/Plan Treatment Plan: Continue Plan of Care Treatment Plan: Bed Mobility, Functional Activity Corrine, Functional Strength, Safety, Therapeutic Exercise, Transfers Treatment Duration: Dec 20, 2020 Frequency: 5 times per week Estimated Hrs Per Day: .25 hour per day Discharge Recommendations Therapy Discharge Recommendati: Other, See Comments (care home facility) Time/GCodes Time In: 1245 Time Out: 1315 Total Billed Treatment Time: 30 Total Billed Treatment 1 visit EVModC 15 min FA 15 min VIVIANE MATT PT Dec 16, 2020 14:02
[2020-12-16] MEDS: ACETAMINOPHEN 325 MG TABLET PO PRN (14:07)
[2020-12-16 15:30] VITALS: BP 136/91
[2020-12-16] MEDS: LORazepam 0.5 MG (ATIVAN) TABLET PO SCH (19:59)
[2020-12-16] MEDS: DONEPEZIL 10 MG (ARICEPT) TAB PO SCH (19:59)
[2020-12-16 20:05] VITALS: BP 139/84
[2020-12-17] VITALS: BP 124/90
[2020-12-17] MEDS: LACTATED RINGERS 1,000 ML IV SCH (01:44)
[2020-12-17] MEDS: inSUlin ASPART (NovoLOG) 1 UNIT/0.01 ML (CHARGE PER UNIT) SC SCH ×2 (05:47→11:23)
[2020-12-17] MEDS: VENlafaxine XR 75 MG (EFFEXOR XR) CAP PO SCH (05:47)
[2020-12-17 08:00] VITALS: BP 162/98
[2020-12-17] MEDS: CLOPIDOGREL 75 MG (PLAVIX) TABLET PO SCH (08:13)
[2020-12-17] MEDS: ASPIRIN E.C. 81 MG (ECOTRIN) TAB PO SCH (08:13)
[2020-12-17] MEDS: DIVALPROX SPRINKLE 125 MG (DEPAKOTE) CAP PO SCH (08:13)
[2020-12-17] MEDS: PANTOPRAZOLE 20 MG TABLET (PROTONIX) PO SCH (08:13)
[2020-12-17] MEDS: CYPROHEPTADINE (PERIACTIN) 4 MG TAB PO SCH (08:24)
--- NOTE | 2020-12-17 10:36 | Discharge Summary ---
Diagnosis/Chief Complaint Date of Admission Dec 13, 2020 at 13:56 Date of Discharge Discharge Date: Dec 17, 2020 Admission Diagnosis Sepsis due to urinary tract infection Primary Care Go Lan DO Discharge Diagnosis (1) Sepsis Status: Acute (2) UTI (urinary tract infection) Status: Acute (3) Insulin dependent diabetes mellitus (4) Dementia Status: Chronic Discharge Summary Discharge Physical Exam Allergies: Coded Allergies: No Known Drug Allergies (Unverified , 01/29/17) Vitals & I&Os Vital Signs Date Time Temp Pulse Resp B/P (MAP) Pulse Ox O2 Delivery O2 Flow Rate FiO2 12/17/20 14:35 35.9 96 20 162/98 95 Nasal Cannula 2.00 95 General Appearance: No Apparent Distress, Chronically ill Cardiovascular: Regular Rate, Rhythm, No Murmur Hospital Course Patient was admitted secondary to altered mental status and urinary tract infection. She has baseline dementia and is a [facility]. She was treated with IV antibiotics and IV fluids and she improved. She was able to be [facility] to follow-up with her primary care doctor. Labs (last 24 hrs) Microbiology 12/13/20 Blood Culture - Final, Complete No growth 12/13/20 Urine Culture - Final, Complete Aerococcus urinae Aerococcus sanguinicola Patient resulted labs reviewed. Pending Labs Imaging: Reviewed Imaging Report Discussion & Recommendations Discharge Planning: >30 minutes discharge planning Discharge Home Medications: Active Scripts Active Amoxicillin 500 Mg Tablet 500 Mg PO BID Reported Hydrocodone-Acetamin 7.5-325 (Hydrocodone/Acetaminophen) 1 Each Tablet 1 Ea PO Q4H PRN Milk of Magnesia (Magnesium Hydroxide) 400 Mg/5 Ml Oral.susp 30 Ml PO DAILY PRN Tylenol (Acetaminophen) 325 Mg Tablet 650 Mg PO Q6H PRN Ativan (Lorazepam) 0.5 Mg Tablet 0.5 Mg PO HS Vitamin D3 (Cholecalciferol (Vitamin D3)) 25 Mcg Capsule 50 Mcg PO DAILY TAKES 2 (25MCG) CAPS Divalproex Sodium 125 Mg Cap.sprink 250 Mg PO BID TAKES 2 (125MG) CAPS Pantoprazole Sodium 20 Mg Tablet.dr 20 Mg PO DAILY Multivitamins with Minerals (Multivitamin with Minerals) 1 Each Tablet 1 Each PO DAILY Acidophilus-Pectin Capsule (Lactobacillus Acidophilus/Pect) 1 Each Capsule 1 Each PO DAILY Magnesium Oxide 400 Mg Tablet 400 Mg PO DAILY Vitamin D2 (Ergocalciferol (Vitamin D2)) 1,250 Mcg Capsule 1,250 Mcg PO MON Aspirin EC (Aspirin) 81 Mg Tablet.dr 81 Mg PO DAILY Feosol (Ferrous Sulfate) 325 Mg Tablet 325 Mg PO 1200 Cyproheptadine HCl 4 Mg Tablet 4 Mg PO DAILY Novolog (Insulin Aspart) 100 Unit/1 Ml Susp SC ACHS SLIDING SCALE: 201-250=3 UNITS 251-300=5UNITS 301-350=7UNITS 351-400=9 UNITS OVER 400 CALL PCP Donepezil HCl 10 Mg Tablet 10 Mg PO HS Atorvastatin Calcium 80 Mg Tablet 80 Mg PO 1730 Venlafaxine HCl ER (Venlafaxine HCl) 150 Mg Cap.er.24h 150 Mg PO DAILY Plavix (Clopidogrel Bisulfate) 75 Mg Tablet 75 Mg PO DAILY Lantus (Insulin Glargine,Hum.rec.anlog) 100 Unit/1 Ml Vial 15 Unit SQ HS Instructions to patient/family Please see electronic discharge instructions given to patient. Problem Qualifiers (1) UTI (urinary tract infection): Urinary tract infection type: acute cystitis Hematuria presence: with hematuria Qualified Codes: N30.01 - Acute cystitis with hematuria (2) Dementia: Dementia type: Alzheimer's Alzheimer's disease onset: late-onset Dementia behavioral disturbance: without behavioral disturbance Qualified Codes: G30.1 - Alzheimer's disease with late onset; F02.80 - Dementia in other diseases classified elsewhere without behavioral disturbance BRENDA HERNANDEZ MD Dec 17, 2020 10:36
[2020-12-17] MEDS ORDERED: AMOX500T2 PO (10:41)
--- NOTE | 2020-12-17 10:52 | Discharge Inst-Simple/Standard ---
Discharge Inst-Standard Discharge Medications New, Converted or Re-Newed RX: Transmitted to Pharmacy Patient Instructions/Follow Up Plan of Care/Instructions/FU: Please continue to take your medications as written. Please follow up with your primary care doctor to follow up this hospital stay. Activity as Tolerated: Yes Discharge Diet: No Restrictions Return to The Hospital For: Chest pain, shortness of breath, fever, abdominal pain, confusion, weakness, if you feel you are getting worse. BRENDA HERNANDEZ MD Dec 17, 2020 10:51
[2020-12-17 14:35] VITALS: BP 162/98
--- NOTE | 2020-12-17 18:48 | Physician Query Clarification ---
Physician Query-General Query to Physician: The medical record reflects the following clinical evidence: Clinical Indicators: GCS on admission 12, Improved to 14 after treatment, documentation of "more lethargic than usual", Daughter stating that she is normally alert and able to have conversation. Risk Factor(s): Sepsis, UTI Treatment: IV ABX, Lactated Ringers 1. Metabolic encephalopathy in the setting of UTI with sepsis and underlying dementia, present on admission 2. Other explanation of clinical findings 3. Unable to determine (no explanation for clinical findings) Please clarify and document your clinical opinion in the progress notes and discharge summary including the definitive and/or presumptive diagnosis, (suspe cted or probable), related to the above clinical findings. Please include clinical findings supporting your diagnosis. Laurita Lazo MSN, RN Clinical Assistant [employer] [phone] [email or web address] PHYSICIAN RESPONSE: Based on the clinical findings in the record, please respond to the query above on this document as an addendum. Physician Response: Physician Response 1 If you have questions please contact: [employer]: Ext: Thank you for your time and cooperation. Clinical Assistant [employer] This is a permanent part of the medical record LAURITA LAZO Dec 17, 2020 18:48 BRENDA HERNANDEZ MD Dec 22, 2020 13:49
== END 2020-12-17 15:09 | DRG 871 ==
LOC: ER 12:02 → EDUNIT# 12:02 → 4TH 13:56
PROVIDERS: ADMIT Internal Medicine; ATTEND Internal Medicine
DX: A41.9 Sepsis, unspecified organism (principal); G93.41 Metabolic encephalopathy; N39.0 Urinary tract infection, site not specified; F03.90 Unspecified dementia, unspecified severity, without behavioral disturbance, psychotic disturbance, mood disturbance, and anxiety; E11.9 Type 2 diabetes mellitus without complications; I25.10 Atherosclerotic heart disease of native coronary artery without angina pectoris; H54.7 Unspecified visual loss; Z66 Do not resuscitate; F32.9 Major depressive disorder, single episode, unspecified; K21.9 Gastro-esophageal reflux disease without esophagitis; E78.00 Pure hypercholesterolemia, unspecified; E78.5 Hyperlipidemia, unspecified; M81.0 Age-related osteoporosis without current pathological fracture; M19.91 Primary osteoarthritis, unspecified site; M54.9 Dorsalgia, unspecified; F41.9 Anxiety disorder, unspecified; Z74.01 Bed confinement status; Z89.629 Acquired absence of unspecified hip joint; I25.2 Old myocardial infarction; Z95.5 Presence of coronary angioplasty implant and graft; Z79.82 Long term (current) use of aspirin; Z79.4 Long term (current) use of insulin; Z81.8 Family history of other mental and behavioral disorders; Z82.61 Family history of arthritis; Z83.3 Family history of diabetes mellitus
CPT/HCPCS: 36410; 36415; 51702; 71045; 74176; 76937; 80048; 80053; 81000; 82805; 82947; 83605; 83880; 84145; 85007; 85025; 85027; 85610; 85730; 87040; 87077; 87088; 87636; 93005; 96374

== ENCOUNTER 2020-12-26 19:57 | Inpatient (IN) | payer MEDICARE, MEDICAID ==
[~2020-12-26] VITALS: Ht 170 cm; Wt 74.9 kg
[~2020-12-26 19:57] MED LIST changes: +ACET325T38 PO; +AMOX500T2 PO; +ASPI-1238 PO; +CHOL100048 PO; +DIVA125C10 PO; +ERGO1250 PO; +HYDR-3817 PO; +LACT1CAP76 PO; +LORA-404 PO; +MAG-10 PO; +MAGN400O7 PO; +MAGN400T7 PO; +MULT-166 PO; +PANT20TA18 PO
[2020-12-26] MEDS ORDERED: LACTATED RINGERS 1,000 ML IV ONE (20:15)
[2020-12-26 20:53] LABS: BILIRUBIN,URINE 2+ (NEGATIVE); CLARITY,URINE CLOUDY; COLOR,URINE BROWN; GLUCOSE, URINE (UA) TRACE (NEGATIVE); KETONES,URINE 1+ (NEGATIVE); LEUKOCYTE ESTERASE ,URINE 2+ (NEGATIVE); NITRITE,URINE POSITIVE (NEGATIVE); PH,URINE 6.5 (5-9); PROTEIN,URINE 3+ (NEGATIVE)
[2020-12-26 21:06] LABS: BACTERIA,URINE TRACE /HPF; RBC,URINE >100 /HPF; WBC,URINE TNTC /HPF
[2020-12-26] MEDS ORDERED: CEFEPIME INJECTION 1,000 MG in WATER (STERILE) FOR INJECTION 10 ML IV ONE (21:30)
[2020-12-26 21:53] LABS: BASOPHILS # (AUTO) 0.2 10^3/uL (0.0-0.1); BASOPHILS % (AUTO) 1 % (0-10); EOSINOPHILS # (AUTO) 0.6 10^3/uL (0.0-0.3); EOSINOPHILS % (AUTO) 4 % (0-10); HEMATOCRIT 30 % (35-52); HEMOGLOBIN 9.4 g/dL (11.5-16.0); LYMPHOCYTES # (AUTO) 3.2 10^3/uL (1.0-4.0); LYMPHOCYTES % (AUTO) 20 % (12-44); MEAN CORPUSCULAR HEMOGLOBIN 28 pg (25-34); MEAN CORPUSCULAR HGB CONC 31 g/dL (32-36); MEAN CORPUSCULAR VOLUME 91 fL (80-99); MEAN PLATELET VOLUME 10.6 fL (9.0-12.2); MONOCYTES # (AUTO) 1.9 10^3/uL (0.0-1.0); MONOCYTES % (AUTO) 12 % (0-12); NEUTROPHILS # (AUTO) 10.3 10^3/uL (1.8-7.8); NEUTROPHILS % (AUTO) 63 % (42-75); PLATELET COUNT 599 10^3/uL (130-400); WHITE BLOOD COUNT 16.3 10^3/uL (4.3-11.0)
--- NOTE | 2020-12-26 21:54 | Diagnostic Imaging Report ---
INDICATION: Weakness. EXAMINATION: Portable chest at 9:47 PM. Heart size and pulmonary vascularity are normal. There is some patchy increased density at the right lung base. Left lung is clear. There is no effusion or pneumothorax. IMPRESSION: Small area of consolidation in the right lower lung could be developing pneumonia versus atelectasis. Dictated by: Dictated on workstation # [id number]
[2020-12-26 22:01] LABS: ALBUMIN 2.6 GM/DL (3.2-4.5); POTASSIUM 4.4 MMOL/L (3.6-5.0)
[2020-12-26 22:02] LABS: CALCIUM 9.3 MG/DL (8.5-10.1)
[2020-12-26 22:03] LABS: INR 1.1 (0.8-1.4); PROTHROMBIN TIME PATIENT 14.6 SEC (12.2-14.7)
[2020-12-26 22:05] LABS: BILIRUBIN,TOTAL 0.5 MG/DL (0.1-1.0)
[2020-12-26 22:07] LABS: CREATININE SERUM 0.74 MG/DL (0.60-1.30)
[2020-12-26 22:10] LABS: MAGNESIUM 2.3 MG/DL (1.6-2.4)
[2020-12-26 22:14] LABS: BAND NEUTROPHILS 1 %; EOSINOPHILS % (MANUAL) 4 %; ERYTHROCYTE SEDIMENTATION RATE 69 MM/HR (0-30); LYMPHOCYTES % (MANUAL) 12 %; MONOCYTES % (MANUAL) 11 %; NEUTROPHILS % (MANUAL) 72 %; RBC MORPH NORMAL
--- NOTE | 2020-12-26 22:16 | ED General ---
General Chief Complaint: General Problems/Pain Stated Complaint: LATHARGY Source of Information: EMS, Old Records (ALL PMH IS FROM OLD RECORD) Exam Limitations: Other (PT WITH DEMENTIA AND UNABLE TO GIVE ANY INFORMATION, NO REPORT FROM CARE HOME, NOR PAPERWORK EXCEPT FOR FACE SHEET AND DNR AND DPOA PAPERS. ) History of Present Illness Date Seen by Provider: Dec 26, 2020 Time Seen by Provider: 19:54 Initial Comments PT ARRIVES VIA POV FROM VIA [facility] EMS REPORT THAT PT HAS HAD INCREASING LETHARGY FOR THE LAST COUPLE OF DAYS EMS REPORT THAT PT REPORTEDLY IS TALKATIVE, BUT HAS NOT BEEN TALKING OR FOLLOWING COMMANDS THE LAST COUPLE OF DAYS PT WAS ADMITTED 12/13-12/17/20 FOR UTI WITH SEPSIS. SENT HOME WITH RX FOR AMOXICILLIN NO OTHER INFORMATION IS OBTAINABLE ON ARRIVAL PT IS DNR/DNI PCP: DR. RIDER Allergies and Home Medications Allergies Coded Allergies: No Known Drug Allergies (Unverified , 01/29/17) Home Medications Acetaminophen 325 Mg Tablet, 650 MG PO Q6H PRN for PAIN-MILD (1-4) OR TEMPATURE, (Reported) Last Action: Held Aspirin 81 Mg Tablet.dr, 81 MG PO DAILY, (Reported) Last Action: Continued Atorvastatin Calcium 80 Mg Tablet, 80 MG PO 1730, (Reported) Last Action: Continued Cholecalciferol (Vitamin D3) 25 Mcg Capsule, 50 MCG PO DAILY, (Reported) TAKES 2 (25MCG) CAPS Last Action: Held Clopidogrel Bisulfate 75 Mg Tablet, 75 MG PO DAILY, (Reported) Last Action: Continued Cyproheptadine HCl 4 Mg Tablet, 4 MG PO DAILY, (Reported) Last Action: Continued Divalproex Sodium 125 Mg Cap.sprink, 250 MG PO BID, (Reported) TAKES 2 (125MG) CAPS Last Action: Continued Donepezil HCl 10 Mg Tablet, 10 MG PO HS, (Reported) Last Action: Continued Ergocalciferol (Vitamin D2) 1,250 Mcg Capsule, 1,250 MCG PO MON, (Reported) Last Action: Held Ferrous Sulfate 325 Mg Tablet, 325 MG PO 1200, (Reported) Last Action: Held Hydrocodone/Acetaminophen 1 Each Tablet, 1 EA PO Q4H PRN for PAIN-MODERATE (5-7 ), (Reported) Last Action: Held Insulin Aspart 100 Unit/1 Ml Susp, SC ACHS, (Reported) SLIDING SCALE: 201-250=3 UNITS 251-300=5UNITS 301-350=7UNITS 351-400=9 UNITS OVER 400 CALL PCP Last Action: Held Insulin Glargine,Hum.rec.anlog 100 Unit/1 Ml Vial, 15 UNIT SQ HS, (Reported) Last Action: Held Lactobacillus Acidophilus/Pect 1 Each Capsule, 1 EACH PO DAILY, (Reported) Last Action: Held Lorazepam 0.5 Mg Tablet, 0.5 MG PO HS, (Reported) Last Action: Continued Mag Hydrox/Al Hydrox/Simeth 355 Ml Oral.susp, 30 ML PO Q4H PRN for GI UPSET, (Reported) Last Action: Held Magnesium Hydroxide 400 Mg/5 Ml Oral.susp, 30 ML PO DAILY PRN for CONSTIPATION- 7TH LINE, (Reported) Last Action: Held Magnesium Oxide 400 Mg Tablet, 400 MG PO DAILY, (Reported) Last Action: Held Multivitamin with Minerals 1 Each Tablet, 1 EACH PO DAILY, (Reported) Last Action: Held Pantoprazole Sodium 20 Mg Tablet.dr, 20 MG PO DAILY, (Reported) Last Action: Continued Venlafaxine HCl 150 Mg Cap.er.24h, 150 MG PO DAILY, (Reported) Last Action: Converted Patient Home Medication List Home Medication List Reviewed: Yes Review of Systems Review of Systems Constitutional: other (UNABLE TO OBTAIN FROM PT) Past Vinpmcp-Zrjuiq-Bivyvq Hx Patient Social History Tobacco Use?: Yes Tobacco type used: Cigarettes Smoking Status: Former Smoker Substance use?: No Alcohol Use?: No Immunizations Up To Date Tetanus Booster (TDap): Unknown PED Vaccines UTD: No Seasonal Allergies Seasonal Allergies: No Past Medical History Surgery/Hospitalization HX: LEFT HIP FX/REPLACEMENT 06/2018--INFECTED HARDWARE REMOVED AND NOT REPAIRED--PT IS BEDBOUND LEFT ANKLE SURGERY CARDIAC CATHS WITH STENTS IN 2001--RCA X 1 STENT; CIRCUMFLEX X 2 STENTS RIGHT CAROTID ENDARTERECTOM[place] [address] HERRERA RIGHT INTERNAL CAROTID STENT 04/27/[address] LEIVA [address] 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, Menopausal Sexually Transmitted Disease: No HIV/AIDS: No Genitourinary: Yes Bladder Infection Gastrointestinal: Yes Colitis, Gastroesophageal Reflux, Chronic Diarrhea Musculoskeletal: Yes (COMPRESSION FX L1; L HIP FX;L ANKLE SURGERY;FALLS ) Osteoporosis, Arthritis, Chronic Back Pain, Fractures Endocrine: Yes Diabetes, Insulin dep HEENT: No Loss of Vision: Bilateral Hearing Impairment: Denies Cancer: No Psychosocial: Yes Anxiety Integumentary: Yes (FOOT ULCERS DUE TO DM AND PAD) Blood Disorders: No Adverse Reaction/Blood Tranf: No (N/A) Family Medical History Alzheimer's disease (dad) Arthritis (mom) Asthma (sister) Completed stroke (mom) Diabetes mellitus (mom) Fibrocystic disease of breast (sister) Hypercholesterolemia (mom) Hypertension (mom) Myocardial infarction (mom) Neoplasm Parkinson's disease Severe allergy (sister) No Family History of: AIDS Abdominal aortic aneurysm [place]'s disease Alcoholism Aphasia Cancer of mouth Cardiovascular disease Cataracts Colon cancer Congenital disease Congenital heart disease Coronary thrombosis Cystic fibrosis Deafness or hearing loss Dementia Drug abuse Dysphasia Gastroenteritis Glaucoma Headache disorder Infertility Kidney disease Not obtainable due to adoption Osteoporosis (breast cancer) Prostate cancer Psychosocial problem Respiratory disorder Seizure disorder Thyroid disease Visual disorder No Pertinent Family Hx Physical Exam Vital Signs Vital Signs - First Documented 12/26/20 19:58 Temp 36.6 Pulse 78 Resp 16 B/P (MAP) 168/91 (116) Pulse Ox 97 O2 Delivery Nasal Cannula O2 Flow Rate 2.00 Capillary Refill : Height, Weight, BMI Height: 5'4.00" Weight: 124lbs. 6.0oz. 56.918863mo; 27.58 BMI Method:Stated General Appearance: Other (LETHARGIC, CONSTANTLY MOANING AND YELLING CONTINUOUSLY AND NON-STOP "HEY" "HELP"; CONSTANT MOVMENTS, BUT MOSTLY LAYING IN SEMI- POSITION ON RIGHT SIDE. DOES OPEN EYES. ) HEENT: Other (DRY ORAL MUCOSA) Respiratory: Normal Breath Sounds, No Accessory Muscle Use, No Respiratory Di stress Cardiovascular: Regular Rate, Rhythm, No Murmur Gastrointestinal: Non Tender, Soft Extremity: Pedal Edema (TRACE BILATERLLY), Other (HIPS AND KNEES FLEXED, WITH SOME CONTRACTURE NOTED--RIGHT > LEFT. LARGE BLISTER NOTED TO RIGHT MEDIAL HEEL, AND ERYTHEMA AND SKIN BREAKDOWN OF CONTACTING SURFACE OF LEFT MEDIAL MALLEOLUS. ) Neurologic/Psychiatric: No Motor/Sensory Deficits, Other (AWAKE, BUT LETHARGIC. DOES SAY A FEW WORDS, AND SPEECH IS CLEAR/NOT SLURRED, WHEN ASKED WHERE SHE HURTS, SHE STATES 'ALL OVER" BUT OTHERWISE IS NOT ABLE TO ANSWER MOST QUESTIONS, CAN FOLLOW A FEW VERY SIMPLE COMMANDS. ) Skin: Normal Color, Warm/Dry Focused Exam Lactate Level 12/26/20 21:35: Lactic Acid Level 1.30 Lactic Acid Level Laboratory Tests Test 12/26/20 21:35 Lactic Acid Level 1.30 MMOL/L (0.50-2.00) Progress/Results/Core Measures Suspected Sepsis SIRS Temperature: Pulse: Respiratory Rate: Laboratory Tests 12/26/20 21:35: White Blood Count 16.3H Blood Pressure / Mean: 12/26/20 21:35: Lactic Acid Level 1.30 Laboratory Tests 12/26/20 21:35: Creatinine 0.74, INR Comment 1.1, Platelet Count 599H, Total Bilirubin 0.5 Results/Orders Lab Results Laboratory Tests Test 12/26/20 20:30 12/26/20 20:40 12/26/20 21:35 12/26/20 21:55 Range/Units Influenza Type A (RT-PCR) Not Detected Not Detecte Influenza Type B (RT-PCR) Not Detected Not Detecte SARS-CoV-2 RNA (RT-PCR) Not Detected Not Detecte Urine Color BROWN H Urine Clarity CLOUDY Urine pH 6.5 5-9 Urine Specific Panther 1.025 H 1.016-1.022 Urine Protein 3+ H NEGATIVE Urine Glucose (UA) TRACE H NEGATIVE Urine Ketones 1+ H NEGATIVE Urine Nitrite POSITIVE H NEGATIVE Urine Bilirubin 2+ H NEGATIVE Urine Urobilinogen 2.0 < = 1.0 MG/DL Urine Leukocyte Esterase 2+ H NEGATIVE Urine RBC (Auto) 3+ H NEGATIVE Urine RBC >100 H /HPF Urine WBC TNTC H /HPF Urine Crystals NONE /LPF Urine Bacteria TRACE /HPF Urine Casts NONE /LPF Urine Mucus NEGATIVE /LPF Urine Culture Indicated CULTURE PENDING White Blood Count 16.3 H 4.3-11.0 10^3/uL Red Blood Count 3.33 L 3.80-5.11 10^6/uL Hemoglobin 9.4 L 11.5-16.0 g/dL Hematocrit 30 L 35-52 % Mean Corpuscular Volume 91 80-99 fL Mean Corpuscular Hemoglobin 28 25-34 pg Mean Corpuscular Hemoglobin Concent 31 L 32-36 g/dL Red Cell Distribution Width 14.8 H 10.0-14.5 % Platelet Count 599 H 130-400 10^3/uL Mean Platelet Volume 10.6 9.0-12.2 fL Immature Granulocyte % (Auto) 0 % Neutrophils (%) (Auto) 63 42-75 % Lymphocytes (%) (Auto) 20 12-44 % Monocytes (%) (Auto) 12 0-12 % Eosinophils (%) (Auto) 4 0-10 % Basophils (%) (Auto) 1 0-10 % Neutrophils # (Auto) 10.3 H 1.8-7.8 10^3/uL Lymphocytes # (Auto) 3.2 1.0-4.0 10^3/uL Monocytes # (Auto) 1.9 H 0.0-1.0 10^3/uL Eosinophils # (Auto) 0.6 H 0.0-0.3 10^3/uL Basophils # (Auto) 0.2 H 0.0-0.1 10^3/uL Immature Granulocyte # (Auto) 0.1 0.0-0.1 10^3/uL Neutrophils % (Manual) 72 % Lymphocytes % (Manual) 12 % Monocytes % (Manual) 11 % Eosinophils % (Manual) 4 % Band Neutrophils 1 % Blood Morphology Comment NORMAL Erythrocyte Sedimentation Rate 69 H 0-30 MM/HR Prothrombin Time 14.6 12.2-14.7 SEC INR Comment 1.1 0.8-1.4 Activated Partial Thromboplast Time 38 H 24-35 SEC Sodium Level 141 135-145 MMOL/L Potassium Level 4.4 3.6-5.0 MMOL/L Chloride Level 100 98-107 MMOL/L Carbon Dioxide Level 29 21-32 MMOL/L Anion Gap 12 5-14 MMOL/L Blood Urea Nitrogen 20 H 7-18 MG/DL Creatinine 0.74 0.60-1.30 MG/DL Estimat Glomerular Filtration Rate 75 BUN/Creatinine Ratio 27 Glucose Level 162 H 70-105 MG/DL Lactic Acid Level 1.30 0.50-2.00 MMOL/L Calcium Level 9.3 8.5-10.1 MG/DL Corrected Calcium 10.4 H 8.5-10.1 MG/DL Magnesium Level 2.3 1.6-2.4 MG/DL Total Bilirubin 0.5 0.1-1.0 MG/DL Aspartate Amino Transf (AST/SGOT) 34 5-34 U/L Alanine Aminotransferase (ALT/SGPT) 38 0-55 U/L Alkaline Phosphatase 424 H 40-136 U/L Lactate Dehydrogenase 220 125-220 U/L Troponin I 0.053 H <0.028 NG/ML C-Reactive Protein High Sensitivity 13.81 H 0.00-0.50 MG/DL Total Protein 7.0 6.4-8.2 GM/DL Albumin 2.6 L 3.2-4.5 GM/DL Amylase Level 25 25-125 U/L Lipase 9 8-78 U/L Procalcitonin 0.12 H <0.10 NG/ML Valproic Acid (Depakene) Level 33.6 L 50.0-100.0 UG/ML Micro Results Microbiology 12/26/20 Blood Culture - Preliminary, Resulted Gram Positive Cocci in Cluster 12/26/20 Blood Culture - Preliminary, Resulted No growth 12/26/20 Urine Culture - Preliminary, Resulted Pseudomonas aeruginosa Testing In Progress My Orders Orders - ARTIE QUICK DO Ed Iv/Invasive Line Start (12/26/20 20:08) Ekg Tracing (12/26/20 20:08) Catheter(Urinary) Insert & Ass 03,15 (12/26/20 20:08) O2 (12/26/20 20:08) Monitor-Rhythm Ecg Trace Only (12/26/20 20:08) Amylase (12/26/20 20:08) Cbc With Automated Diff (12/26/20 20:08) Comprehensive Metabolic Panel (12/26/20 20:08) Lactic Acid Analyzer (12/26/20 20:08) Lipase (12/26/20 20:08) Magnesium (12/26/20 20:08) Protime With Inr (12/26/20 20:08) Partial Thromboplastin Time (12/26/20 20:08) Ua Culture If Indicated (12/26/20 20:08) Blood Culture (12/26/20 20:08) Troponin I (12/26/20 20:08) Chest 1 View, Ap/Pa Only (12/26/20 20:08) Ed Iv/Invasive Line Start (12/26/20 20:08) Lactated Ringers (Lr 1000 Ml Iv Solution (12/26/20 20:15) Urine Culture (12/26/20 20:08) Vital Signs Adult Sepsis Patie Q15M (12/26/20 20:08) Remove Rings In Anticipation O (12/26/20 20:08) Procalcitonin (Pct) (12/26/20 20:08) Hs C Reactive Protein (12/26/20 20:08) Erythrocyte Sedimentation Rate (12/26/20 20:08) LDH (12/26/20 20:08) Covid 19 Inhouse Test (12/26/20 20:08) Influenza A And B By Pcr (12/26/20 20:08) Cefepime Injection (Maxipime Injection) (12/26/20 21:30) Manual Differential (12/26/20 21:35) Medications Given in ED Vital Signs/I&O 12/26/20 12/26/20 19:58 19:58 Temp 36.6 Pulse 78 Resp 16 B/P (MAP) 168/91 (116) Pulse Ox 97 O2 Delivery Nasal Cannula Nasal Cannula O2 Flow Rate 2.00 2.00 Capillary Refill : Progress Note : Progress Note 2219--DAUGHTER ARRIVES AND VERIFIES THAT PT HAS DEMENTIA, AND PT DOES NOT RECOGNIZE DAUGHTER AT THIS TIME, WHICH IS NOT UNUSUAL FOR PT, ACCORDING TO DAUGHTER. NO DETERIORATION IN PT'S CONDITION DURING ER STAY ON PLACING CATHETER AND OBTAINING URINE SPECIMEN, IT IS NOTED TO RESEMBLE CHOCOLATE MILK--IS DARK BROWN AND CLOUDY ECG Initial ECG Impression Date: Dec 26, 2020 Initial ECG Impression Time: 20:27 Initial ECG Rate: 79 Initial ECG Rhythm: Normal Sinus Diagnostic Imaging Comments CXR--PER RADIOLOGIST REPORT AT 3 Heart size and pulmonary vascularity are normal. There is some patchy increased density at the right lung base. Left lung is clear. There is no effusion or pneumothorax. IMPRESSION: Small area of consolidation in the right lower lung could be developing pneumonia versus atelectasis. Reviewed: Reviewed by Me Departure Communication (Admissions) 2213--SPOKE WITH DR. RAMIREZ, HOSPITALIST, ACCEPTS PT FOR ADMIT. Impression Primary Impression: Sepsis Additional Impressions: UTI (urinary tract infection) Pneumonia IDDM (insulin dependent diabetes mellitus) Severe dementia PRESSURE SORES BILATERAL FEET/ANKLES ANEMIA Elevated troponin Dehydration Disposition: ADMITTED INPATIENT Condition: Stable Admissions Decision to Admit Reason: Admit from ER (General) Decision to Admit/Date: Dec 26, 2020 Time/Decision to Admit Time: 21:15 Departure-Patient Inst. Referrals: JOSEY RIDER DO (PCP/Family) Primary Care Physician ARTIE QUICK DO Dec 26, 2020 22:16
[2020-12-26 23:26] VITALS: BP 172/84
[2020-12-27] MEDS ORDERED: ACETAMINOPHEN 500 MG TAB (TYLENOL) PO PRN (00:45)
[2020-12-27] MEDS: D5 1/2 NS W/KCL 20 MEQ/L 1,000 ML IV SCH ×2 (01:10→10:22)
[2020-12-27] MEDS ORDERED: NS IV 500 ML 500 ML ONE (01:44)
[2020-12-27] MEDS ORDERED: VANCOMYCIN INJECTION 1,500 MG in NS IV 500 ML 500 ML IV ONE (02:00)
[2020-12-27 03:17] VITALS: BP 120/67
[2020-12-27] MEDS: CEFEPIME INJECTION 1,000 MG in WATER (STERILE) FOR INJECTION 10 ML IV SCH ×3 (04:44→17:13)
[2020-12-27] MEDS: inSUlin ASPART (NovoLOG) 1 UNIT/0.01 ML (CHARGE PER UNIT) SC SCH ×4 (05:30→20:17)
[2020-12-27 06:52] LABS: BASOPHILS # (AUTO) 0.1 10^3/uL (0.0-0.1); BASOPHILS % (AUTO) 1 % (0-10); EOSINOPHILS # (AUTO) 0.3 10^3/uL (0.0-0.3); EOSINOPHILS % (AUTO) 3 % (0-10); HEMATOCRIT 45 % (35-52); LYMPHOCYTES # (AUTO) 1.3 10^3/uL (1.0-4.0); LYMPHOCYTES % (AUTO) 11 % (12-44); MEAN CORPUSCULAR HEMOGLOBIN 28 pg (25-34); MEAN CORPUSCULAR HGB CONC 32 g/dL (32-36); MEAN CORPUSCULAR VOLUME 88 fL (80-99); MEAN PLATELET VOLUME 10.5 fL (9.0-12.2); MONOCYTES # (AUTO) 1.2 10^3/uL (0.0-1.0); MONOCYTES % (AUTO) 9 % (0-12); NEUTROPHILS # (AUTO) 9.5 10^3/uL (1.8-7.8); NEUTROPHILS % (AUTO) 76 % (42-75); PLATELET COUNT 397 10^3/uL (130-400); WHITE BLOOD COUNT 12.4 10^3/uL (4.3-11.0)
[2020-12-27] MEDS ORDERED: ONDANSETRON 4 MG/2 ML (SDV) Z0FRAN IVP PRN (07:00)
[2020-12-27 07:01] LABS: POTASSIUM 4.4 MMOL/L (3.6-5.0)
[2020-12-27 07:02] LABS: CALCIUM 8.5 MG/DL (8.5-10.1)
[2020-12-27 07:06] LABS: CREATININE SERUM 0.63 MG/DL (0.60-1.30)
[2020-12-27 08:32] VITALS: BP 163/95
[2020-12-27 12:00] VITALS: BP 172/99
--- NOTE | 2020-12-27 15:44 | History & Physical-Hospitalist ---
History of Present Illness HPI/Chief Complaint Ros Vinson is an 80-year-old female with past medical history of coronary artery disease, hyperlipidemia, cerebrovascular disease, type 2 diabetes mellitus, advanced dementia, who presented with lethargy. She is a long-term skilled nursing resident. She was recently admitted for a urinary tract infection. She was becoming more lethargic and weak. She is a poor historian due to dementia. She denies any fevers. She denies any shortness of breath. She denies any cough. She denies any abdominal pain. She has no other complaints or concerns. Source: patient Exam Limitations: no limitations Date Seen 12/27/20 Time Seen by a Provider: 10:20 Attending Physician Yoanna Vaughan DO PCP Go Lan DO Referring Physician Date of Admission Dec 26, 2020 at 22:15 Home Medications & Allergies Home Medications Reviewed patient Home Medication Reconciliation performed by pharmacy medication reconciliations blend technician and/or nursing. Patients Allergies have been reviewed. Allergies Allergies Coded Allergies No Known Drug Allergies (Unverified01/29/17) Past Dueszrn-Oqxaax-Jqnann Hx Patient Social History Tobacco Use?: No Smoking Status: Former Smoker Use of E-Cig and/or Vaping dev: No Substance use?: No Alcohol Use?: No Pt feels they are or have been: No Immunizations Up To Date Date of Influenza Vaccine: Mar 10, 2018 Tetanus Booster (TDap): Unknown Hepatitis A: Yes Hepatitis B: Yes PED Vaccines UTD: No Date of Pneumonia Vaccine: Jan 08, 2014 Seasonal Allergies Seasonal Allergies: No Current Status status: No status: No Advance Directives: No Advance Directive Location: Copy placed in chart Communicates: Verbally Primary Language: Belarusian Preferred Spoken Language: Belarusian Is interpretation needed?: No Sensory deficits: Vision impairment Implanted or Applied Medical D: Stents Past Medical History Surgeries: Appendectomy, Cardiac, Coronary Stent, Eye Surgery, 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, Joint Replacement, Orthopedic Coronary Artery Disease, Heart Attack, High Cholesterol, Peripheral Vascular Dementia, TIA 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, Menopausal Sexually Transmitted Disease: No HIV/AIDS: No Bladder Infection Colitis, Gastroesophageal Reflux, Chronic Diarrhea Osteoporosis, Arthritis, Chronic Back Pain Diabetes, Insulin dep Loss of Vision: Bilateral Hearing Impairment: Denies Anxiety Recent Skin Changes Blood Disorders: No Adverse Reaction/Blood Tranf: No (N/A) Family Medical History Alzheimer's disease (dad) Arthritis (mom) Asthma (sister) Completed stroke (mom) Diabetes mellitus (mom) Fibrocystic disease of breast (sister) Hypercholesterolemia (mom) Hypertension (mom) Myocardial infarction (mom) Neoplasm Parkinson's disease Severe allergy (sister) No Family History of: AIDS Abdominal aortic aneurysm [place]'s disease Alcoholism Aphasia Cancer of mouth Cardiovascular disease Cataracts Colon cancer Congenital disease Congenital heart disease Coronary thrombosis Cystic fibrosis Deafness or hearing loss Dementia Drug abuse Dysphasia Gastroenteritis Glaucoma Headache disorder Infertility Kidney disease Not obtainable due to adoption Osteoporosis (breast cancer) Prostate cancer Psychosocial problem Respiratory disorder Seizure disorder Thyroid disease Visual disorder No Pertinent Family Hx Review of Systems Constitutional: weakness EENTM: no symptoms reported Respiratory: no symptoms reported Cardiovascular: no symptoms reported Gastrointestinal: no symptoms reported Genitourinary: no symptoms reported Musculoskeletal: no symptoms reported Skin: no symptoms reported Psychiatric/Neurological: No Symptoms Reported Physical Exam Physical Exam Vital Signs Vital Signs - First Documented 12/26/20 19:58 Temp 36.6 Pulse 78 Resp 16 B/P (MAP) 168/91 (116) Pulse Ox 97 O2 Delivery Nasal Cannula O2 Flow Rate 2.00 Capillary Refill : Less Than 3 Seconds Height, Weight, BMI Height: 5'4.00" Weight: 124lbs. 6.0oz. 56.881958lt; 25.91 BMI Method:Stated General Appearance: No Apparent Distress, WD/WN HEENT: PERRL/EOMI, Pharynx Normal Neck: Normal Inspection, Supple Respiratory: Lungs Clear, Normal Breath Sounds, No Respiratory Distress Cardiovascular: Regular Rate, Rhythm, No Edema, No Murmur Gastrointestinal: Normal Bowel Sounds, Non Tender, Soft Extremity: Normal Inspection, Non Tender, Pedal Edema Neurologic/Psychiatric: Alert, Normal Mood/Affect, Disoriented, Motor Weakness Skin: Normal Color, Warm/Dry Results Results/Procedures Labs Laboratory Tests 12/26/20 21:35 12/27/20 06:46 Patient resulted labs reviewed. Imaging: Reviewed Imaging Report Assessment/Plan Admission Diagnosis Sepsis due to urinary tract infection Admission Status: Inpatient Order (span 2 midnights) Reason for Inpatient Admission: IV antibiotics and fluids Assessment and Plan Sepsis due to urinary tract infection UA consistent with UTI Urine culture with gram-negative hayley Blood cultures pending Started on vancomycin and cefepime Chest x-ray concerning for atelectasis versus pneumonia Procalcitonin within normal limits x2 Stop vancomycin Continue IV fluids Await culture results Dementia Debility Long-term resident Via [facility] CAD HLD History of CVA GERD Depression Continue home meds T2DM Sliding scale insulin DVT prophylaxis: Lovenox Diagnosis/Problems Diagnosis/Problems (1) Sepsis Status: Acute (2) UTI (urinary tract infection) Status: Acute (3) Dementia Status: Chronic LACHO DASILVA MD Dec 27, 2020 15:44
[2020-12-27 15:49] VITALS: BP 135/84
[2020-12-27] MEDS ORDERED: VANCOMYCIN 750 MG/NS 250 ML IVPB IV SCH ×2 (16:00)
[2020-12-27] MEDS: ENOXAPARIN 40 MG/0.4 ML (LOVENOX) SYR SC SCH (17:13)
[2020-12-27 19:25] VITALS: BP 159/81
[2020-12-27] MEDS: DIVALPROX SPRINKLE 125 MG (DEPAKOTE) CAP PO SCH (20:16)
[2020-12-27] MEDS: LORazepam 0.5 MG (ATIVAN) TABLET PO SCH (20:16)
[2020-12-27] MEDS: DONEPEZIL 10 MG (ARICEPT) TAB PO SCH (20:16)
[2020-12-28] VITALS (8 sets, daily range): BP systolic 93–170; BP diastolic 65–109
[2020-12-28] MEDS: CEFEPIME INJECTION 1,000 MG in WATER (STERILE) FOR INJECTION 10 ML IV SCH ×3 (02:11→18:25)
[2020-12-28] MEDS: LORazepam INJ 2 MG/ML (ATIVAN) VIAL IV PRN (02:16)
[2020-12-28] MEDS: inSUlin ASPART (NovoLOG) 1 UNIT/0.01 ML (CHARGE PER UNIT) SC SCH ×4 (06:02→20:39)
[2020-12-28] MEDS: VENlafaxine XR 75 MG (EFFEXOR XR) CAP PO SCH (06:02)
--- NOTE | 2020-12-28 07:33 | Diagnostic Imaging Report ---
EXAMINATION: Chest 1 view HISTORY: Atelectasis versus pneumonia COMPARISON: 12/27/2019 FINDINGS: Bibasilar airspace opacities increased. There is a small right pleural effusion. No pneumothorax. Heart size is normal. IMPRESSION: 1. 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 Dictated by: Dictated on workstation # [id number]
[2020-12-28] MEDS ORDERED: NON-FORMULARY MEDICATION 1 EA EA (Venlafaxine HCl (Venlafaxine HCl ER) 150 MG) PO SCH (09:00)
[2020-12-28] MEDS: CYPROHEPTADINE (PERIACTIN) 4 MG TAB PO SCH (09:04)
[2020-12-28] MEDS: CLOPIDOGREL 75 MG (PLAVIX) TABLET PO SCH (09:04)
[2020-12-28] MEDS: DIVALPROX SPRINKLE 125 MG (DEPAKOTE) CAP PO SCH ×2 (09:04→20:04)
[2020-12-28] MEDS: PANTOPRAZOLE 20 MG TABLET (PROTONIX) PO SCH (09:05)
[2020-12-28] MEDS: ASPIRIN E.C. 81 MG (ECOTRIN) TAB PO SCH (09:05)
--- NOTE | 2020-12-28 13:52 | Progress Note - Hospitalist ---
Subjective HPI/CC On Admission Date Seen by Provider: Dec 28, 2020 Time Seen by Provider: 10:25 Ros Vinson is an 80-year-old female with past medical history of coronary artery disease, hyperlipidemia, cerebrovascular disease, type 2 diabetes mellitus, advanced dementia, who presented with lethargy. She is a long-term alf resident. She was recently admitted for a urinary tract infection. She was becoming more lethargic and weak. She is a poor historian due to dementia. She denies any fevers. She denies any shortness of breath. She denies any cough. She denies any abdominal pain. She has no other complaints or concerns. Subjective/Events-last exam She is sleeping upon my arrival. Her daughter is at the bedside. She is easily awoken. She says that she is feeling fine. She has no complaints or concerns. She is not in any pain. She is not having any trouble breathing. She is thirsty and hungry. Focused Exam Lactate Level 12/26/20 21:35: Lactic Acid Level 1.30 Objective Exam Vital Signs Vital Signs Date Time Temp Pulse Resp B/P (MAP) Pulse Ox O2 Delivery O2 Flow Rate FiO2 12/28/20 13:00 89 12/28/20 12:30 141/80 (100) Nasal Cannula 2.00 12/28/20 12:00 36.2 18 99 Capillary Refill : Less Than 3 Seconds General Appearance: No Apparent Distress, Chronically ill Respiratory: Lungs Clear, Normal Breath Sounds, No Respiratory Distress Cardiovascular: Regular Rate, Rhythm, No Murmur Gastrointestinal: Normal Bowel Sounds, Non Tender, Soft Extremity: Normal Inspection, Non Tender Neurologic/Psychiatric: Alert, Motor Weakness Skin: Warm/Dry, Pallor Results/Procedures Lab Patient resulted labs reviewed. Imaging: Reviewed Imaging Report Assessment/Plan Assessment and Plan Assess & Plan/Chief Complaint Sepsis due to urinary tract infection UA consistent with UTI Urine culture with Pseudomonas aeruginosa Await final susceptibilities Blood cultures with 1 set likely contaminated, coag negative staph Continue cefepime Chest x-ray concerning for pneumonia Procalcitonin within normal limits x2 Stop IV fluids Repeat labs pending Dementia Debility Long-term resident [facility] HLD History of CVA GERD Depression Continue home meds T2DM Sliding scale insulin DVT prophylaxis: Lovenox Diagnosis/Problems Diagnosis/Problems (1) Sepsis Status: Acute (2) UTI (urinary tract infection) Status: Acute (3) Dementia Status: Chronic LACHO DASILVA MD Dec 28, 2020 13:52
[2020-12-28 14:37] LABS: BASOPHILS # (AUTO) 0.1 10^3/uL (0.0-0.1); BASOPHILS % (AUTO) 1 % (0-10); EOSINOPHILS # (AUTO) 0.3 10^3/uL (0.0-0.3); EOSINOPHILS % (AUTO) 3 % (0-10); HEMATOCRIT 42 % (35-52); HEMOGLOBIN 13.4 g/dL (11.5-16.0); LYMPHOCYTES # (AUTO) 1.3 10^3/uL (1.0-4.0); LYMPHOCYTES % (AUTO) 15 % (12-44); MEAN CORPUSCULAR HEMOGLOBIN 27 pg (25-34); MEAN CORPUSCULAR HGB CONC 32 g/dL (32-36); MEAN CORPUSCULAR VOLUME 86 fL (80-99); MEAN PLATELET VOLUME 10.4 fL (9.0-12.2); MONOCYTES # (AUTO) 0.8 10^3/uL (0.0-1.0); MONOCYTES % (AUTO) 9 % (0-12); NEUTROPHILS # (AUTO) 6.4 10^3/uL (1.8-7.8); NEUTROPHILS % (AUTO) 72 % (42-75); PLATELET COUNT 424 10^3/uL (130-400)
[2020-12-28 14:45] LABS: POTASSIUM 4.3 MMOL/L (3.6-5.0)
[2020-12-28 14:46] LABS: CALCIUM 8.7 MG/DL (8.5-10.1)
[2020-12-28 14:51] LABS: CREATININE SERUM 0.61 MG/DL (0.60-1.30)
[2020-12-28 14:53] LABS: MAGNESIUM 1.9 MG/DL (1.6-2.4)
[2020-12-28] MEDS: ENOXAPARIN 40 MG/0.4 ML (LOVENOX) SYR SC SCH (16:39)
[2020-12-28] MEDS: LORazepam 0.5 MG (ATIVAN) TABLET PO SCH (20:03)
[2020-12-28] MEDS: DONEPEZIL 10 MG (ARICEPT) TAB PO SCH (20:03)
[2020-12-29] MEDS: CEFEPIME INJECTION 1,000 MG in WATER (STERILE) FOR INJECTION 10 ML IV SCH ×2 (02:05→09:22)
[2020-12-29 03:19] VITALS: BP 142/77
[2020-12-29] MEDS: inSUlin ASPART (NovoLOG) 1 UNIT/0.01 ML (CHARGE PER UNIT) SC SCH ×4 (05:14→20:53)
[2020-12-29] MEDS: VENlafaxine XR 75 MG (EFFEXOR XR) CAP PO SCH (05:57)
[2020-12-29 08:00] VITALS: BP 147/81
[2020-12-29] MEDS: PANTOPRAZOLE 20 MG TABLET (PROTONIX) PO SCH (09:22)
[2020-12-29] MEDS: CYPROHEPTADINE (PERIACTIN) 4 MG TAB PO SCH (09:22)
[2020-12-29] MEDS: DIVALPROX SPRINKLE 125 MG (DEPAKOTE) CAP PO SCH ×2 (09:22→20:11)
[2020-12-29] MEDS: CLOPIDOGREL 75 MG (PLAVIX) TABLET PO SCH (09:22)
[2020-12-29] MEDS: ASPIRIN E.C. 81 MG (ECOTRIN) TAB PO SCH (09:22)
[2020-12-29 12:08] VITALS: BP 147/84
[2020-12-29] MEDS ORDERED: MEROPENEM 1,000 MG in WATER (STERILE) FOR INJECTION 20 ML IV SCH (12:15)
[2020-12-29] MEDS: MEROPENEM 500 MG/SWFI 10 ML IV PUSH IV SCH ×4 (12:47→18:09)
[2020-12-29] MEDS: ENOXAPARIN 40 MG/0.4 ML (LOVENOX) SYR SC SCH (15:15)
[2020-12-29 16:00] VITALS: BP 134/85
--- NOTE | 2020-12-29 16:16 | Progress Note - Hospitalist ---
Subjective HPI/CC On Admission Date Seen by Provider: Dec 29, 2020 Time Seen by Provider: 12:00 Ros Vinson is an 80-year-old female with past medical history of coronary artery disease, hyperlipidemia, cerebrovascular disease, type 2 diabetes mellitus, advanced dementia, who presented with lethargy. She is a long-term prison resident. She was recently admitted for a urinary tract infection. She was becoming more lethargic and weak. She is a poor historian due to dementia. She denies any fevers. She denies any shortness of breath. She denies any cough. She denies any abdominal pain. She has no other complaints or concerns. Subjective/Events-last exam She is feeling about the same. She is sleeping. Her daughter does not think she is back to herself yet. Focused Exam Lactate Level 12/26/20 21:35: Lactic Acid Level 1.30 Objective Exam Vital Signs Vital Signs Date Time Temp Pulse Resp B/P (MAP) Pulse Ox O2 Delivery O2 Flow Rate FiO2 12/29/20 12:08 36.1 86 18 147/84 (105) 99 Nasal Cannula 2.50 Capillary Refill : Less Than 3 Seconds General Appearance: No Apparent Distress, Chronically ill Respiratory: Lungs Clear, Normal Breath Sounds, No Respiratory Distress Cardiovascular: Regular Rate, Rhythm, No Edema, No Murmur Gastrointestinal: Normal Bowel Sounds, Non Tender, Soft Extremity: Normal Inspection, Non Tender, Pedal Edema Neurologic/Psychiatric: Alert, Motor Weakness Skin: Pallor Results/Procedures Lab Patient resulted labs reviewed. Imaging: Reviewed Imaging Report Assessment/Plan Assessment and Plan Assess & Plan/Chief Complaint Sepsis due to urinary tract infection UA consistent with UTI Urine culture with Pseudomonas aeruginosa Susceptibilities show rsistance to Cefepime and Zosyn Blood cultures with 1 set likely contaminated, coag negative staph [facility] Dementia Debility Long-term resident Via [facility] HLD History of CVA GERD Depression Continue home meds T2DM Sliding scale insulin DVT prophylaxis: Lovenox Diagnosis/Problems Diagnosis/Problems (1) Sepsis Status: Acute (2) UTI (urinary tract infection) Status: Acute (3) Dementia Status: Chronic (4) Pseudomonas urinary tract infection Status: Acute (5) Infection due to multidrug-resistant Pseudomonas aeruginosa Status: Acute LACHO DASILVA MD Dec 29, 2020 16:16
[2020-12-29 20:00] VITALS: BP 140/84
[2020-12-29] MEDS: LORazepam 0.5 MG (ATIVAN) TABLET PO SCH (20:11)
[2020-12-29] MEDS: DONEPEZIL 10 MG (ARICEPT) TAB PO SCH (20:11)
[2020-12-29 23:45] VITALS: BP 145/82
[2020-12-30] MEDS: MEROPENEM 500 MG/SWFI 10 ML IV PUSH IV SCH ×6 (01:26→13:07)
[2020-12-30] MEDS: LORazepam INJ 2 MG/ML (ATIVAN) VIAL IV PRN (01:42)
[2020-12-30 04:15] VITALS: BP 127/82
[2020-12-30] MEDS: inSUlin ASPART (NovoLOG) 1 UNIT/0.01 ML (CHARGE PER UNIT) SC SCH ×2 (05:59→12:44)
[2020-12-30] MEDS: VENlafaxine XR 75 MG (EFFEXOR XR) CAP PO SCH (05:59)
[2020-12-30 07:02] LABS: POTASSIUM 3.9 MMOL/L (3.6-5.0)
[2020-12-30 07:03] LABS: CALCIUM 8.8 MG/DL (8.5-10.1)
[2020-12-30 07:07] LABS: CREATININE SERUM 0.58 MG/DL (0.60-1.30)
[2020-12-30 08:00] VITALS: BP 128/82
[2020-12-30] MEDS: DIVALPROX SPRINKLE 125 MG (DEPAKOTE) CAP PO SCH (09:10)
[2020-12-30] MEDS: PANTOPRAZOLE 20 MG TABLET (PROTONIX) PO SCH (09:10)
[2020-12-30] MEDS: CYPROHEPTADINE (PERIACTIN) 4 MG TAB PO SCH (09:10)
[2020-12-30] MEDS: ASPIRIN E.C. 81 MG (ECOTRIN) TAB PO SCH (09:10)
[2020-12-30] MEDS: CLOPIDOGREL 75 MG (PLAVIX) TABLET PO SCH (09:10)
[2020-12-30 12:00] VITALS: BP 115/78
--- NOTE | 2020-12-30 14:36 | Discharge Summary ---
Discharge Summary Hospital Course Was the Problem List Reviewed?: Yes Problems/Dx: (1) Sepsis Status: Acute (2) UTI (urinary tract infection) Status: Acute (3) Dementia Status: Chronic (4) Pseudomonas urinary tract infection Status: Acute (5) Infection due to multidrug-resistant Pseudomonas aeruginosa Status: Acute Hospital Course Date of Admission: Dec 26, 2020 at 22:15 Admission Diagnosis : Sepsis due to urinary tract infection Family Physician/Provider: Go Lan DO Date of Discharge: 12/30/20 Discharge Diagnosis: Sepsis due to urinary tract infection Hospital Course: Ros Vinson is an 80-year-old female who was admitted with sepsis due to urinary tract infection. She was started on IV antibiotics. Her urine culture came back with a multidrug-resistant Pseudomonas aeruginosa infection. Her antibiotics had to be changed to IV meropenem. She will require at least 6 more days of IV antibiotic therapy. She was discharged to [facility] hospital bed for ongoing antibiotics. Labs and Pending Lab Test: Laboratory Tests 12/29/20 16:16: Glucometer 168H 12/29/20 20:50: Glucometer 170H 12/30/20 05:49: Glucometer 146H 12/30/20 06:00: Sodium Level 141, Potassium Level 3.9, Chloride Level 106, Carbon Dioxide Level 29, Anion Gap 6, Blood Urea Nitrogen 19H, Creatinine 0.58L, Estimat Glomerular Filtration Rate 100, BUN/Creatinine Ratio 33, Glucose Level 158H, Calcium Level 8.8 12/30/20 11:04: Glucometer 183H Microbiology 12/26/20 Blood Culture - Preliminary, Resulted Staph, Coag Neg (INTRUSION ANALYST) 12/26/20 Urine Culture - Final, Complete Pseudomonas aeruginosa Home Meds Active Reported Hydrocodone-Acetamin 7.5-325 (Hydrocodone/Acetaminophen) 1 Each Tablet 1 Ea PO Q4H PRN Darline-Lanta Liquid (Mag Hydrox/Al Hydrox/Simeth) 355 Ml Oral.susp 30 Ml PO Q4H PRN Milk of Magnesia (Magnesium Hydroxide) 400 Mg/5 Ml Oral.susp 30 Ml PO DAILY PRN Tylenol (Acetaminophen) 325 Mg Tablet 650 Mg PO Q6H PRN Ativan (Lorazepam) 0.5 Mg Tablet 0.5 Mg PO HS Vitamin D3 (Cholecalciferol (Vitamin D3)) 25 Mcg Capsule 50 Mcg PO DAILY TAKES 2 (25MCG) CAPS Divalproex Sodium 125 Mg Cap.sprink 250 Mg PO BID TAKES 2 (125MG) CAPS Pantoprazole Sodium 20 Mg Tablet.dr 20 Mg PO DAILY Multivitamins with Minerals (Multivitamin with Minerals) 1 Each Tablet 1 Each PO DAILY Acidophilus-Pectin Capsule (Lactobacillus Acidophilus/Pect) 1 Each Capsule 1 Each PO DAILY Magnesium Oxide 400 Mg Tablet 400 Mg PO DAILY Vitamin D2 (Ergocalciferol (Vitamin D2)) 1,250 Mcg Capsule 1,250 Mcg PO MON Aspirin EC (Aspirin) 81 Mg Tablet.dr 81 Mg PO DAILY Feosol (Ferrous Sulfate) 325 Mg Tablet 325 Mg PO 1200 Cyproheptadine HCl 4 Mg Tablet 4 Mg PO DAILY Novolog (Insulin Aspart) 100 Unit/1 Ml Susp SC ACHS SLIDING SCALE: 201-250=3 UNITS 251-300=5UNITS 301-350=7UNITS 351-400=9 UNITS OVER 400 CALL PCP Donepezil HCl 10 Mg Tablet 10 Mg PO HS Atorvastatin Calcium 80 Mg Tablet 80 Mg PO 1730 Venlafaxine HCl ER (Venlafaxine HCl) 150 Mg Cap.er.24h 150 Mg PO DAILY Plavix (Clopidogrel Bisulfate) 75 Mg Tablet 75 Mg PO DAILY Lantus (Insulin Glargine,Hum.rec.anlog) 100 Unit/1 Ml Vial 15 Unit SQ HS Assessment/Pt Instructions Patient discharged to swing bed for IV antibiotics Discharge Planning: <30 minutes discharge planning Discharge Instructions Discharge Diet: No Restrictions Activity as Tolerated: Yes Discharge Physical Examination Vital Signs Vital Signs Date Time Temp Pulse Resp B/P (MAP) Pulse Ox O2 Delivery O2 Flow Rate FiO2 12/30/20 12:00 35.8 82 18 115/78 (90) 95 Nasal Cannula 2.50 General Appearance: No Apparent Distress, Chronically ill Respiratory: Lungs Clear, Normal Breath Sounds, No Respiratory Distress Cardiovascular: Regular Rate, Rhythm, No Murmur Gastrointestinal: Normal Bowel Sounds, Non Tender, Soft Extremity: Normal Inspection, Non Tender, Pedal Edema Skin: Warm/Dry, Pallor Neurologic/Psychiatric: Alert, Motor Weakness Allergies: Coded Allergies: No Known Drug Allergies (Unverified , 01/29/17) Discharge Summary Date of Admission Dec 26, 2020 at 22:15 Date of Discharge Discharge Date: Dec 30, 2020 Discharge Time: 14:35 Admission Diagnosis Sepsis due to urinary tract infection Discharge Diagnosis Sepsis due to urinary tract infection (1) Sepsis Status: Acute (2) UTI (urinary tract infection) Status: Acute (3) Dementia Status: Chronic (4) Pseudomonas urinary tract infection Status: Acute (5) Infection due to multidrug-resistant Pseudomonas aeruginosa Status: Acute LACHO DASILVA MD Dec 30, 2020 14:36
--- NOTE | 2020-12-30 18:12 | Physician Query Clarification ---
Physician Query-General Query to Physician: The medical record reflects the following clinical scenario: The patient, in the setting of History/Risk factors Severe Dementia, increased lethargy (no documentation of home 02?) Clinical Findings Admission VS/Labs RR 16-20, WBC 16.3, Chest Xray " increase in bibasilar airspace opacities and small right pleural effusion circulation sales representative of pneumonia", Requiring 02 to maintain sats of 93 to 97% Treatment list Supplemental 02, lactated Ringer's 1 L, cefepime IV, added IV meropenem, and Vancomycin Question: Do you agree with the impression of Pneumonia per ER physician, Dr. Guerda Mcdonnell? 1. Yes; will document Pneumonia present on admission in the Progress Notes/Discharge Summary 2. No; will continue current documentation in the Progress Notes 3. Other; will document explanation of clinical findings 4. Clinically undetermined; no explanation for clinical findings Please clarify and document your clinical opinion in the Progress Notes and Discharge Summary including the definitive and/or presumptive diagnosis, (suspected or probable), related to the above clinical findings. Please include clinical findings supporting your diagnosis. In responding to this query, please exercise your independent professional judgment. The purpose of this communication is to more accurately reflect the complexity of your patients condition. The fact that a question is asked does not imply that any particular answer is desired or expected. Please remember a lack of response to the above will prompt a phone page by CDI/coding staff Thank you for timely response to this clarification. Laurita Lee MSN, RN Clinical Executive Director [employer] [phone] [email or web address] PHYSICIAN RESPONSE: Based on the clinical findings in the record, please respond to the query above on this document as an addendum. Physician Response: Physician Response 2 If you have questions please contact: Carbide Tool Die Maker: Ext: Thank you for your time and cooperation. Clinical Executive Director Contract Shop/Carbide Tool Die Maker This is a permanent part of the medical record LAURITA LEE Dec 30, 2020 18:12 LACHO DASILVA MD Jan 01, 2021 20:07
--- NOTE | 2020-12-31 14:29 | Physician Query Clarification ---
PQ-Further Specificity Admission/Discharge Admission Date: Dec 26, 2020 at 22:15 Discharge Date: Dec 30, 2020 at 14:45 Dr. Dasilva, The medical record reflects the following clinical scenario: History/Risk Factors: Sepsis, pneumonia, UTI, PU Clinical Findings: Troponin 0.053 Treatment: IV Potassium, IV Cefepime, IV Vancomycin, IV Meropenem Question: Can you further specify elevated troponin per the clinical indicators above? Please document a response in the Progress Notes or Discharge Summary. 1. Elevated troponin only 2. DC type 2 3. Other, with explanation of the clinical findings. 4. Clinically undetermined, no explanation for the clinical findings. PHYSICIAN RESPONSE Can you specify per above: 1 Please remember a lack of response to the above will prompt a phone page by CDI/Coding staff. In responding to this query, please exercise your independent professional judgment. The purpose of this communication is to more accurately reflect the complexity of your patients condition. The fact that a question is asked does not imply that any particular answer is desired or expected. Thank you for your timely response to this clarification. Requestors name: Lamar THIS PHYSICIAN QUERY FORM IS A PERMANENT PART OF THE MEDICAL RECORD LAMAR NAM Dec 31, 2020 14:29 LACHO DASILVA MD Jan 01, 2021 20:08
== END 2020-12-30 14:45 | disposition swing bed (61) | DRG 872 ==
LOC: EDUNIT# 19:57 → ER 19:58 → 4TH 22:15
PROVIDERS: ADMIT Internal Medicine; ATTEND Internal Medicine
DX: A41.9 Sepsis, unspecified organism (principal); N39.0 Urinary tract infection, site not specified; J44.0 Chronic obstructive pulmonary disease with (acute) lower respiratory infection; Z16.24 Resistance to multiple antibiotics; B96.5 Pseudomonas (aeruginosa) (mallei) (pseudomallei) as the cause of diseases classified elsewhere; L89.529 Pressure ulcer of left ankle, unspecified stage; L89.519 Pressure ulcer of right ankle, unspecified stage; L89.899 Pressure ulcer of other site, unspecified stage; Z66 Do not resuscitate; Z20.822 Contact with and (suspected) exposure to COVID-19; D64.9 Anemia, unspecified; E86.0 Dehydration; F32.9 Major depressive disorder, single episode, unspecified; I10 Essential (primary) hypertension; F03.90 Unspecified dementia, unspecified severity, without behavioral disturbance, psychotic disturbance, mood disturbance, and anxiety; I25.10 Atherosclerotic heart disease of native coronary artery without angina pectoris; E78.00 Pure hypercholesterolemia, unspecified; K21.9 Gastro-esophageal reflux disease without esophagitis; M81.0 Age-related osteoporosis without current pathological fracture; M19.91 Primary osteoarthritis, unspecified site; E11.621 Type 2 diabetes mellitus with foot ulcer; F41.9 Anxiety disorder, unspecified; H54.7 Unspecified visual loss; R77.8 Other specified abnormalities of plasma proteins; L97.529 Non-pressure chronic ulcer of other part of left foot with unspecified severity; I25.2 Old myocardial infarction; Z87.891 Personal history of nicotine dependence; Z74.01 Bed confinement status; Z79.4 Long term (current) use of insulin; Z95.5 Presence of coronary angioplasty implant and graft; Z79.82 Long term (current) use of aspirin; Z81.8 Family history of other mental and behavioral disorders; Z82.49 Family history of ischemic heart disease and other diseases of the circulatory system; Z83.3 Family history of diabetes mellitus; Z82.61 Family history of arthritis
CPT/HCPCS: 36415; 51702; 71045; 80048; 80053; 80164; 81000; 82150; 82947; 83605; 83615; 83690; 83735; 84145; 84484; 85007; 85025; 85027; 85610; 85652; 85730; 86141; 87040; 87077; 87088; 87186; 87636; 93005; 93041; 94640; 96361; 96374

== ENCOUNTER 2020-12-30 13:50 | Inpatient (IN) | payer MEDICARE, MEDICAID ==
[~2020-12-30] VITALS: Ht 170 cm; Wt 74.9 kg
[2020-12-30] MEDS ORDERED: ONDANSETRON 4 MG/2 ML (SDV) Z0FRAN IVP PRN (15:00)
[2020-12-30] MEDS ORDERED: MEROPENEM 500 MG in WATER (STERILE) FOR INJECTION 10 ML IV SCH (15:00)
[2020-12-30] MEDS: inSUlin ASPART (NovoLOG) 1 UNIT/0.01 ML (CHARGE PER UNIT) SC SCH ×2 (15:34→21:35)
[2020-12-30 16:00] VITALS: BP 121/79
[2020-12-30] MEDS: ENOXAPARIN 40 MG/0.4 ML (LOVENOX) SYR SC SCH (16:24)
[2020-12-30 17:11] VITALS: BP 137/80
[2020-12-30] MEDS: DONEPEZIL 10 MG (ARICEPT) TAB PO SCH (22:22)
[2020-12-30] MEDS: DIVALPROX SPRINKLE 125 MG (DEPAKOTE) CAP PO SCH (22:22)
[2020-12-30] MEDS: LORazepam 0.5 MG (ATIVAN) TABLET PO SCH (22:22)
[2020-12-30] MEDS: MEROPENEM 500 MG in WATER (STERILE) FOR INJECTION 10 ML IV SCH (22:23)
[2020-12-31] MEDS: MEROPENEM 500 MG in WATER (STERILE) FOR INJECTION 10 ML IV SCH ×4 (03:54→20:44)
[2020-12-31] MEDS: VENlafaxine XR 75 MG (EFFEXOR XR) CAP PO SCH ×2 (06:08→06:23)
[2020-12-31] MEDS: inSUlin ASPART (NovoLOG) 1 UNIT/0.01 ML (CHARGE PER UNIT) SC SCH ×4 (06:08→21:45)
[2020-12-31 06:26] VITALS: BP 115/80
[2020-12-31] MEDS: ASPIRIN E.C. 81 MG (ECOTRIN) TAB PO SCH (08:41)
[2020-12-31] MEDS: DIVALPROX SPRINKLE 125 MG (DEPAKOTE) CAP PO SCH ×2 (08:41→20:44)
[2020-12-31] MEDS: CLOPIDOGREL 75 MG (PLAVIX) TABLET PO SCH (08:41)
[2020-12-31] MEDS: PANTOPRAZOLE 20 MG TABLET (PROTONIX) PO SCH (08:41)
[2020-12-31] MEDS: CYPROHEPTADINE (PERIACTIN) 4 MG TAB PO SCH (08:41)
[2020-12-31] MEDS: ENOXAPARIN 40 MG/0.4 ML (LOVENOX) SYR SC SCH (15:50)
[2020-12-31 17:09] VITALS: BP 187/78
[2020-12-31] MEDS: DONEPEZIL 10 MG (ARICEPT) TAB PO SCH (20:44)
[2020-12-31] MEDS: LORazepam 0.5 MG (ATIVAN) TABLET PO SCH (20:44)
[2021-01-01] MEDS: LORazepam INJ 2 MG/ML (ATIVAN) VIAL IV PRN (01:01)
[2021-01-01] MEDS: MEROPENEM 500 MG in WATER (STERILE) FOR INJECTION 10 ML IV SCH ×4 (03:21→20:38)
[2021-01-01] MEDS: inSUlin ASPART (NovoLOG) 1 UNIT/0.01 ML (CHARGE PER UNIT) SC SCH ×4 (05:42→20:38)
[2021-01-01 05:43] VITALS: BP 163/89
[2021-01-01] MEDS: VENlafaxine XR 75 MG (EFFEXOR XR) CAP PO SCH (05:57)
[2021-01-01] MEDS: CLOPIDOGREL 75 MG (PLAVIX) TABLET PO SCH (09:02)
[2021-01-01] MEDS: DIVALPROX SPRINKLE 125 MG (DEPAKOTE) CAP PO SCH ×2 (09:02→20:38)
[2021-01-01] MEDS: CYPROHEPTADINE (PERIACTIN) 4 MG TAB PO SCH (09:02)
[2021-01-01] MEDS: ASPIRIN E.C. 81 MG (ECOTRIN) TAB PO SCH (09:02)
[2021-01-01] MEDS: PANTOPRAZOLE 20 MG TABLET (PROTONIX) PO SCH (09:02)
--- NOTE | 2021-01-01 11:55 | Progress Note - Hospitalist ---
Subjective HPI/CC On Admission Date Seen by Provider: Jan 01, 2021 Time Seen by Provider: 11:50 Subjective/Events-last exam Pt reports feeling tired but no complaints. Daughter at bedside. No concerns. Objective Exam Vital Signs Vital Signs Date Time Temp Pulse Resp B/P (MAP) Pulse Ox O2 Delivery O2 Flow Rate FiO2 01/01/21 09:00 Nasal Cannula 2.00 01/01/21 05:43 36.1 98 18 163/89 (113) 99 Capillary Refill : General Appearance: No Apparent Distress, Chronically ill Respiratory: Lungs Clear, No Respiratory Distress Cardiovascular: Regular Rate, Rhythm, No Murmur Results/Procedures Lab Patient resulted labs reviewed. Assessment/Plan Assessment and Plan Assess & Plan/Chief Complaint Sepsis due to urinary tract infection UA consistent with UTI Urine culture with Pseudomonas aeruginosa Susceptibilities show resistance to Cefepime and Zosyn Blood cultures with 1 set likely contaminated, coag negative staph Continue Merrem Dementia Debility Long-term resident Via [facility] HLD History of CVA GERD Depression Continue home meds T2DM Sliding scale insulin DVT prophylaxis: BRENDA Bernabe MD Jan 01, 2021 11:55
[2021-01-01] MEDS: ENOXAPARIN 40 MG/0.4 ML (LOVENOX) SYR SC SCH (14:05)
[2021-01-01 17:47] VITALS: BP 112/63
[2021-01-01] MEDS: LORazepam 0.5 MG (ATIVAN) TABLET PO SCH (20:38)
[2021-01-01] MEDS: DONEPEZIL 10 MG (ARICEPT) TAB PO SCH (20:38)
[2021-01-02] MEDS: MEROPENEM 500 MG in WATER (STERILE) FOR INJECTION 10 ML IV SCH ×4 (03:00→20:38)
[2021-01-02 05:41] VITALS: BP 157/81
[2021-01-02] MEDS: inSUlin ASPART (NovoLOG) 1 UNIT/0.01 ML (CHARGE PER UNIT) SC SCH ×5 (06:01→21:09)
[2021-01-02] MEDS: VENlafaxine XR 75 MG (EFFEXOR XR) CAP PO SCH (06:07)
[2021-01-02] MEDS: ASPIRIN E.C. 81 MG (ECOTRIN) TAB PO SCH (08:09)
[2021-01-02] MEDS: DIVALPROX SPRINKLE 125 MG (DEPAKOTE) CAP PO SCH ×2 (08:09→20:38)
[2021-01-02] MEDS: PANTOPRAZOLE 20 MG TABLET (PROTONIX) PO SCH (08:10)
[2021-01-02] MEDS: CYPROHEPTADINE (PERIACTIN) 4 MG TAB PO SCH (08:10)
[2021-01-02] MEDS: CLOPIDOGREL 75 MG (PLAVIX) TABLET PO SCH (08:10)
[2021-01-02] MEDS: ENOXAPARIN 40 MG/0.4 ML (LOVENOX) SYR SC SCH (14:18)
[2021-01-02] MEDS: LORazepam INJ 2 MG/ML (ATIVAN) VIAL IV PRN (14:18)
[2021-01-02 18:07] VITALS: BP 155/98
[2021-01-02] MEDS: DONEPEZIL 10 MG (ARICEPT) TAB PO SCH (20:37)
[2021-01-02] MEDS: LORazepam 0.5 MG (ATIVAN) TABLET PO SCH (20:38)
[2021-01-03] MEDS: MEROPENEM 500 MG in WATER (STERILE) FOR INJECTION 10 ML IV SCH ×4 (03:09→20:35)
[2021-01-03 05:53] VITALS: BP 148/85
[2021-01-03] MEDS: inSUlin ASPART (NovoLOG) 1 UNIT/0.01 ML (CHARGE PER UNIT) SC SCH ×4 (06:14→20:24)
[2021-01-03] MEDS: VENlafaxine XR 75 MG (EFFEXOR XR) CAP PO SCH (06:20)
[2021-01-03] MEDS: CLOPIDOGREL 75 MG (PLAVIX) TABLET PO SCH (08:39)
[2021-01-03] MEDS: DIVALPROX SPRINKLE 125 MG (DEPAKOTE) CAP PO SCH ×2 (08:39→20:35)
[2021-01-03] MEDS: CYPROHEPTADINE (PERIACTIN) 4 MG TAB PO SCH (08:40)
[2021-01-03] MEDS: ASPIRIN E.C. 81 MG (ECOTRIN) TAB PO SCH (08:40)
[2021-01-03] MEDS: PANTOPRAZOLE 20 MG TABLET (PROTONIX) PO SCH (08:40)
[2021-01-03] MEDS: ACETAMINOPHEN 500 MG TAB (TYLENOL) PO PRN (08:40)
[2021-01-03] MEDS ORDERED: SENNA W/DOCUSATE (SENOKOT S) TABLET PO PRN (13:15)
--- NOTE | 2021-01-03 13:16 | Progress Note - Hospitalist ---
Subjective HPI/CC On Admission Date Seen by Provider: Jan 03, 2021 Time Seen by Provider: 13:12 Subjective/Events-last exam Pt reports doing ok. Mid bed bath. Aide reports constipation and large stool ball when changing her. Objective Exam Vital Signs Vital Signs Date Time Temp Pulse Resp B/P (MAP) Pulse Ox O2 Delivery O2 Flow Rate FiO2 01/03/21 09:00 Nasal Cannula 2.00 01/03/21 05:53 36.0 87 16 148/85 (106) 97 Capillary Refill : General Appearance: No Apparent Distress, Chronically ill Respiratory: No Respiratory Distress Neurologic/Psychiatric: Alert, Other (oriented to person and place) Results/Procedures Lab Patient resulted labs reviewed. Assessment/Plan Assessment and Plan Assess & Plan/Chief Complaint Sepsis due to urinary tract infection UA consistent with UTI Urine culture with Pseudomonas aeruginosa Susceptibilities show resistance to Cefepime and Zosyn Blood cultures with 1 set likely contaminated, coag negative staph Continue Merrem through Wednesday when she will have completed 10 days Dementia Debility Long-term resident Via [facility] HLD History of CVA GERD Depression Continue home meds T2DM Sliding scale insulin DVT prophylaxis: BRENDA Bernabe MD Jan 03, 2021 13:16
[2021-01-03] MEDS: ENOXAPARIN 40 MG/0.4 ML (LOVENOX) SYR SC SCH (15:35)
[2021-01-03 17:13] VITALS: BP 131/83
[2021-01-03] MEDS: DONEPEZIL 10 MG (ARICEPT) TAB PO SCH (20:35)
[2021-01-03] MEDS: LORazepam 0.5 MG (ATIVAN) TABLET PO SCH (20:35)
[2021-01-04] MEDS: MEROPENEM 500 MG in WATER (STERILE) FOR INJECTION 10 ML IV SCH ×4 (03:56→20:58)
[2021-01-04 06:35] VITALS: BP 167/93
[2021-01-04] MEDS: inSUlin ASPART (NovoLOG) 1 UNIT/0.01 ML (CHARGE PER UNIT) SC SCH ×4 (06:39→20:59)
[2021-01-04] MEDS: VENlafaxine XR 75 MG (EFFEXOR XR) CAP PO SCH (07:00)
[2021-01-04] MEDS: PANTOPRAZOLE 20 MG TABLET (PROTONIX) PO SCH (09:22)
[2021-01-04] MEDS: CLOPIDOGREL 75 MG (PLAVIX) TABLET PO SCH (09:23)
[2021-01-04] MEDS: DIVALPROX SPRINKLE 125 MG (DEPAKOTE) CAP PO SCH ×2 (09:23→20:59)
[2021-01-04] MEDS: ASPIRIN E.C. 81 MG (ECOTRIN) TAB PO SCH (09:23)
[2021-01-04] MEDS: CYPROHEPTADINE (PERIACTIN) 4 MG TAB PO SCH (09:23)
[2021-01-04] MEDS: ENOXAPARIN 40 MG/0.4 ML (LOVENOX) SYR SC SCH (15:30)
[2021-01-04 17:38] VITALS: BP 156/95
[2021-01-04] MEDS: LORazepam 0.5 MG (ATIVAN) TABLET PO SCH (20:59)
[2021-01-04] MEDS: DONEPEZIL 10 MG (ARICEPT) TAB PO SCH (20:59)
[2021-01-05] MEDS: MEROPENEM 500 MG in WATER (STERILE) FOR INJECTION 10 ML IV SCH ×3 (03:24→15:29)
[2021-01-05 05:24] VITALS: BP 157/70
[2021-01-05] MEDS: VENlafaxine XR 75 MG (EFFEXOR XR) CAP PO SCH (06:57)
[2021-01-05] MEDS: inSUlin ASPART (NovoLOG) 1 UNIT/0.01 ML (CHARGE PER UNIT) SC SCH ×4 (06:57→21:12)
[2021-01-05] MEDS: ASPIRIN E.C. 81 MG (ECOTRIN) TAB PO SCH (09:19)
[2021-01-05] MEDS: DIVALPROX SPRINKLE 125 MG (DEPAKOTE) CAP PO SCH ×2 (09:19→21:12)
[2021-01-05] MEDS: CLOPIDOGREL 75 MG (PLAVIX) TABLET PO SCH (09:19)
[2021-01-05] MEDS: PANTOPRAZOLE 20 MG TABLET (PROTONIX) PO SCH (09:19)
[2021-01-05] MEDS: CYPROHEPTADINE (PERIACTIN) 4 MG TAB PO SCH (09:19)
[2021-01-05] MEDS: ENOXAPARIN 40 MG/0.4 ML (LOVENOX) SYR SC SCH (15:29)
[2021-01-05 17:41] VITALS: BP 143/82
[2021-01-05] MEDS: LORazepam 0.5 MG (ATIVAN) TABLET PO SCH (21:12)
[2021-01-05] MEDS: DONEPEZIL 10 MG (ARICEPT) TAB PO SCH (21:12)
[2021-01-06 05:41] VITALS: BP 178/86
[2021-01-06 06:15] VITALS: BP 130/88
[2021-01-06] MEDS: VENlafaxine XR 75 MG (EFFEXOR XR) CAP PO SCH (06:15)
[2021-01-06] MEDS: inSUlin ASPART (NovoLOG) 1 UNIT/0.01 ML (CHARGE PER UNIT) SC SCH ×2 (06:15→11:26)
[2021-01-06] MEDS: DIVALPROX SPRINKLE 125 MG (DEPAKOTE) CAP PO SCH (09:11)
[2021-01-06] MEDS: LORazepam INJ 2 MG/ML (ATIVAN) VIAL IV PRN (09:11)
[2021-01-06] MEDS: ASPIRIN E.C. 81 MG (ECOTRIN) TAB PO SCH (09:12)
[2021-01-06] MEDS: CLOPIDOGREL 75 MG (PLAVIX) TABLET PO SCH (09:12)
[2021-01-06] MEDS: CYPROHEPTADINE (PERIACTIN) 4 MG TAB PO SCH (09:12)
[2021-01-06] MEDS: PANTOPRAZOLE 20 MG TABLET (PROTONIX) PO SCH (09:12)
[2021-01-06] MEDS: ACETAMINOPHEN 500 MG TAB (TYLENOL) PO PRN (09:12)
[2021-01-06 14:22] VITALS: BP 130/88
--- NOTE | 2021-01-06 15:25 | Discharge Summary ---
Discharge Summary Hospital Course Problems/Dx: (1) Infection due to multidrug-resistant Pseudomonas aeruginosa Status: Acute (2) Pseudomonas urinary tract infection Status: Acute (3) Severe dementia Status: Acute Hospital Course Date of Admission: Dec 30, 2020 at 14:58 Admission Diagnosis : Multi-drug resistant Pseudomonas aeruginosa urinary tract infection Family Physician/Provider: Go Lan DO Date of Discharge: 01/06/21 Discharge Diagnosis: Multi-drug resistant Pseudomonas aeruginosa urinary tract infection Hospital Course: Ros Vinson is an 80-year-old female who presented with confusion and was admitted on swing bed with urinary tract infection. She was started on IV antibiotics. Her urine culture revealed a multidrug-resistant Pseudomonas aeruginosa. She was transitioned to IV meropenem. She received a 7-day course of IV antibiotics. She improved and was discharged back to her nursing facility. Labs and Pending Lab Test: Laboratory Tests 01/05/21 15:47: Glucometer 201H 01/05/21 20:29: Glucometer 206H 01/06/21 05:44: Glucometer 189H 01/06/21 11:04: Glucometer 255H Home Meds Active Reported Hydrocodone-Acetamin 7.5-325 (Hydrocodone/Acetaminophen) 1 Each Tablet 1 Ea PO Q4H PRN Darline-Lanta Liquid (Mag Hydrox/Al Hydrox/Simeth) 355 Ml Oral.susp 30 Ml PO Q4H PRN Milk of Magnesia (Magnesium Hydroxide) 400 Mg/5 Ml Oral.susp 30 Ml PO DAILY PRN Tylenol (Acetaminophen) 325 Mg Tablet 650 Mg PO Q6H PRN Ativan (Lorazepam) 0.5 Mg Tablet 0.5 Mg PO HS Vitamin D3 (Cholecalciferol (Vitamin D3)) 25 Mcg Capsule 50 Mcg PO DAILY TAKES 2 (25MCG) CAPS Divalproex Sodium 125 Mg Cap.sprink 250 Mg PO BID TAKES 2 (125MG) CAPS Pantoprazole Sodium 20 Mg Tablet. 20 Mg PO DAILY Multivitamins with Minerals (Multivitamin with Minerals) 1 Each Tablet 1 Each PO DAILY Acidophilus-Pectin Capsule (Lactobacillus Acidophilus/Pect) 1 Each Capsule 1 Each PO DAILY Magnesium Oxide 400 Mg Tablet 400 Mg PO DAILY Vitamin D2 (Ergocalciferol (Vitamin D2)) 1,250 Mcg Capsule 1,250 Mcg PO MON Aspirin EC (Aspirin) 81 Mg Tablet.dr 81 Mg PO DAILY Feosol (Ferrous Sulfate) 325 Mg Tablet 325 Mg PO 1200 Cyproheptadine HCl 4 Mg Tablet 4 Mg PO DAILY Novolog (Insulin Aspart) 100 Unit/1 Ml Susp SC ACHS SLIDING SCALE: 201-250=3 UNITS 251-300=5UNITS 301-350=7UNITS 351-400=9 UNITS OVER 400 CALL PCP Donepezil HCl 10 Mg Tablet 10 Mg PO HS Atorvastatin Calcium 80 Mg Tablet 80 Mg PO 1730 Venlafaxine HCl ER (Venlafaxine HCl) 150 Mg Cap.er.24h 150 Mg PO DAILY Plavix (Clopidogrel Bisulfate) 75 Mg Tablet 75 Mg PO DAILY Lantus (Insulin Glargine,Hum.rec.anlog) 100 Unit/1 Ml Vial 15 Unit SQ HS Assessment/Pt Instructions Take medications as prescribed. Follow-up with your primary care physician. Return with worsening symptoms. Discharge Planning: <30 minutes discharge planning Discharge Instructions Discharge Diet: No Restrictions Activity as Tolerated: Yes Discharge Physical Examination Vital Signs Vital Signs Date Time Temp Pulse Resp B/P (MAP) Pulse Ox O2 Delivery O2 Flow Rate FiO2 01/06/21 09:00 Nasal Cannula 2.00 01/06/21 06:15 36.2 92 18 130/88 (102) 96 General Appearance: No Apparent Distress, Chronically ill Respiratory: Lungs Clear, Normal Breath Sounds, No Respiratory Distress Cardiovascular: Regular Rate, Rhythm, No Edema, No Murmur Gastrointestinal: Normal Bowel Sounds, Non Tender, Soft Extremity: Normal Inspection, Non Tender Skin: Normal Color, Warm/Dry Neurologic/Psychiatric: Alert, Normal Mood/Affect Allergies: Coded Allergies: No Known Drug Allergies (Unverified , 01/29/17) Copy Copies To 1: GO LAN DO Discharge Summary Date of Admission Dec 30, 2020 at 14:58 Date of Discharge Discharge Date: Jan 06, 2021 Discharge Time: 15:22 Admission Diagnosis Multi-drug resistant Pseudomonas aeruginosa urinary tract infection Discharge Diagnosis (1) Pseudomonas urinary tract infection Status: Acute (2) Infection due to multidrug-resistant Pseudomonas aeruginosa Status: Acute (3) Severe dementia Status: Acute LACHO DASILVA MD Jan 06, 2021 15:21
== END 2021-01-06 14:22 | DRG 690 ==
LOC: 4TH 14:58
PROVIDERS: ADMIT Internal Medicine; ATTEND Internal Medicine
DX: N39.0 Urinary tract infection, site not specified (principal); Z16.24 Resistance to multiple antibiotics; B96.5 Pseudomonas (aeruginosa) (mallei) (pseudomallei) as the cause of diseases classified elsewhere; F03.90 Unspecified dementia, unspecified severity, without behavioral disturbance, psychotic disturbance, mood disturbance, and anxiety; Z66 Do not resuscitate; I25.10 Atherosclerotic heart disease of native coronary artery without angina pectoris; E78.5 Hyperlipidemia, unspecified; K21.9 Gastro-esophageal reflux disease without esophagitis; F32.9 Major depressive disorder, single episode, unspecified; E11.9 Type 2 diabetes mellitus without complications; F41.9 Anxiety disorder, unspecified; Z86.73 Personal history of transient ischemic attack (TIA), and cerebral infarction without residual deficits; Z79.4 Long term (current) use of insulin; Z79.899 Other long term (current) drug therapy; Z87.891 Personal history of nicotine dependence; Z95.5 Presence of coronary angioplasty implant and graft
CPT/HCPCS: 82947; 94760